=== PATIENT | male | born 1955 | race Caucasian/White ===

== ENCOUNTER 2017-10-01 11:00 | Outpatient (RCR) | payer MEDICARE, OTHER, SELFPAY | END 2017-10-01 11:01 | disposition home or self-care (01) | LOC: PT 11:00 | PROVIDERS: Family Provider Family Medicine; PCP Pediatrics; Visit Provider Physical Medicine & Rehabilitation | DX: M47.9 Spondylosis, unspecified (principal) | CPT/HCPCS: 97010; 97012; 97014; 97110; 97163; G0283 ==

== ENCOUNTER 2022-11-27 08:24 | Day surgery (SDC) | payer MEDICARE, MEDICAID, SELFPAY ==
--- NOTE | 2022-11-26 10:20 | SUR.PREOP ---
Attempted to call patient for procedure tomorrow, no answer from either number provided. No voicemail available on either number as well.
[2022-11-27] VITALS (9 sets, daily range): BP systolic 147–160; BP diastolic 87–102; PULSE 3–82; RESP 16–19; TEMP 36.2–36.6; O2SAT 92–100; BMI 28.0
== END 2022-11-27 11:45 | disposition home or self-care (01) ==
PROVIDERS: PCP Pediatrics; Visit Provider Ophthalmology
DX: H25.812 Combined forms of age-related cataract, left eye (principal)
CPT/HCPCS: 66984; V2632

== ENCOUNTER 2022-12-11 08:43 | Day surgery (SDC) | payer MEDICARE, MEDICAID, SELFPAY ==
[2022-12-07 10:36] VITALS: BMI 28.0
[2022-12-11] VITALS (7 sets, daily range): BP systolic 130–141; BP diastolic 71–85; PULSE 70–78; RESP 17–18; TEMP 36.2–36.3; O2SAT 92–100
== END 2022-12-11 10:30 | disposition home or self-care (01) ==
PROVIDERS: PCP Pediatrics; Visit Provider Ophthalmology
PROC: (CPT 66984; principal; 2022-12-11 09:30)
DX: H25.811 Combined forms of age-related cataract, right eye (principal)
CPT/HCPCS: 66984; V2632

== ENCOUNTER 2024-03-17 14:07 | Inpatient (IN) | payer MEDICARE, MEDICAID, SELFPAY ==
[2024-03-17] VITALS (17 sets, daily range): BP systolic 109–134; BP diastolic 71–90; PULSE 82–112; RESP 14–20; TEMP 36.4–36.6; O2SAT 91–97; BMI 28.2
--- NOTE | 2024-03-17 14:22 | CT_ITS ---
FINAL REPORT TECHNIQUE: Thin section axial images are obtained through the abdomen and pelvis after intravenous contrast. Reconstruction images were obtained from the axial data. Exam was performed using dose reduction techniques. CLINICAL HISTORY: prev colon cancer, diffuse discomfort vomiting COMPARISON: None FINDINGS: LUNG BASES: There are 2 left lower lobe pulmonary nodules. Nodule on image 9 measuring 10 mm and a nodule just above the left hemidiaphragm measuring 19 mm. These are concerning for metastases. Heart size is normal. LIVER: Homogeneous. No focal lesion. GALLBLADDER/BILIARY SYSTEM: The gallbladder is absent. No biliary dilatation. SPLEEN: Unremarkable. PANCREAS: Unremarkable. ADRENALS: Small left adrenal nodule measuring 10 mm is indeterminate. KIDNEYS/URETERS/BLADDER: No hydronephrosis, renal mass, or renal stone. Unremarkable urinary bladder. GI TRACT: Mild distention of the stomach with fluid. Mildly prominent fluid-filled small bowel loops in the left mid abdomen. Postsurgical changes in the right lower quadrant. Appendix is absent. Decompressed small bowel loops. The exact transition point is not identified. PELVIC ORGANS: Prostate is normal in size. LYMPH NODES/RETROPERITONEUM/MESENTERY: No lymphadenopathy. No abdominal aortic aneurysm. ABDOMINAL WALL: The abdominal wall is intact. FREE FLUID: No ascites. BONES: Avascular necrosis in the right femoral head. No acute osseous abnormality. IMPRESSION: Left lower lobe pulmonary nodules concerning for metastatic disease. Mildly dilated fluid-filled mid small bowel loops with distal decompression. Partial small-bowel obstruction not excluded. Transition point not identified. Reviewed, Interpreted and Dictated by Christal Gonzalez MD Transcribed by Rochelle He Authenticated and [facility]
--- NOTE | 2024-03-17 14:25 | HMH.EDGENADL ---
Discharge Plan Disposition Patient Disposition: Admitted Chief Complaint: Abdominal Pain Clinical Impressions Clinical Impression: SBO (small bowel obstruction), Hematuria, Bladder mass, Urinary tract infection, PONCE (acute kidney injury), Partial small bowel obstruction Discharge ED Provider: Adebayo Knox General Adult HPI <Greyson Polo MD - Last Filed: 03/17/24 15:15> General Chief complaint: Abdominal Pain Stated complaint: weak, vomiting Time Seen by Provider: 03/17/24 14:09 Mode of Arrival: Ambulatory Source of Information: Patient and Spouse Limitations: No Limitations Description of Symptoms (Recalled from ER Triage Doc. by RN): pt reports he is on day 3 of being sick. pt c/o N/V/D, RLQ/LLQ abd cramping, and blood in his urine. pt states his pain is a 7/10. pt took 1 gm of PO tylenol 2h [employer]. History of Present Illness HPI narrative: Patient is a 69-year-old male with past medical history of COPD on intermittent home O2 only as needed, previous colon cancer status post resection, intermittent hematuria which has not been evaluated who presents emergency department for evaluation of vomiting and diarrhea. Onset was acute since Saturday patient has had nausea, vomiting, diarrhea which is nonbloody and intractable. He has had diffuse abdominal cramping intermittently however no overt pain currently. He also has red discolored urine without significant dysuria, no back pain, no chest pain, no cough or shortness of breath. No other acute complaints at this time Related Data Home Medications ?Medication ?Instructions ?Recorded ?Confirmed albuterol 90 mcg/actuation aerosol 90 mcg inhalation DAILY asthmas 11/27/22 12/07/22 inhaler atorvastatin 40 mg tablet 40 mg PO DAILY Cholesterol 11/27/22 12/07/22 cholecalciferol (vitamin D3) 125 125 mcg PO DAILY Supplement 11/27/22 12/07/22 mcg (5,000 unit) tablet (Vitamin D3) citalopram 20 mg tablet 20 mg PO DAILY . 11/27/22 12/07/22 cyclobenzaprine 10 mg tablet 10 mg PO TID Pain 11/27/22 12/07/22 fluticasone fur. 100 mcg-umeclid 1 inh inhalation DAILY Copd 11/27/22 12/07/22 62.5 mcg-vilant 25 mcg inhalat.powder (Trelegy Ellipta) omeprazole 20 mg capsule,delayed 20 mg PO DAILY gerd 11/27/22 12/07/22 release propranolol 10 mg tablet 10 mg PO BID bp 11/27/22 12/07/22 rivaroxaban 20 mg tablet 20 mg PO DAILY bl;ood thinner 11/27/22 12/07/22 ropinirole 0.5 mg tablet 0.5 mg PO TID . 11/27/22 12/07/22 sildenafil 100 mg tablet 100 mg PO DAILY PRN . 11/27/22 12/07/22 Allergies Allergy/AdvReac Type Severity Reaction Status Date / Time morphine (MORPHINE) Allergy Unknown Unknown Verified 03/17/24 14:22 allergy reaction [facility] <Greyson Polo MD - Last Filed: 03/17/24 15:15> [facility] Disclaimer: The information contained in this section may have been updated after the patient was seen, as this information can be updated by other users. Medical History (Updated 03/17/24 @ 21:19 by Adebayo Knox MD) Cataract COPD (chronic obstructive pulmonary disease) GERD (gastroesophageal reflux disease) Peripheral vascular disease Surgical History History of foot surgery History of knee replacement Hx of cholecystectomy Hx of appendectomy History of colon resection Family History Other Family history of heart disease Social History Smoking Status: Current every day smoker alcohol intake: never current occupational status: unemployed Travel in the last 8 weeks: None Have you lived/traveled outside US in past 30 days?: No Contact w/someone who lives/traveled outside US past 30 days?: No Exposure to someone with infectious disease in past 14 days?: No Do you have a fever (greater than 100.4 F or 38 C)?: No Have you tested positive for COVID-19: No Exposed to someone with COVID-19 in past 14 days?: No Do you have a sore throat?: No Do you have a cough?: Yes Do you have any weakness?: Yes Do you have any diarrhea?: Yes Are you experiencing any unusual bleeding?: No Do you have any muscle aches/pain?: No Do you have any abdominal pain?: No Are you experiencing loss of taste or smell?: No <Greyson Polo MD - Last Filed: 03/17/24 15:15> ROS Obtained: Yes Systems reviewed as appropriate & no additional complaints except as documented Physical Exam <Greyson Polo MD - Last Filed: 03/17/24 15:15> General General appearance: alert Comment: Diaphoretic Head Head exam: atraumatic and normocephalic Eye Eye exam: Present PERRL and EOMI ENT ENT exam: Present mucous membranes moist Neck Neck exam: Present normal inspection Chest Chest inspection: Present normal inspection and symmetric chest wall rise Respiratory Respiratory exam: Present normal lung sounds bilaterally; Absent respiratory distress Cardiovascular Cardiovascular exam: Present normal rhythm and tachycardia Abdominal Exam Abdominal exam: Present distention (Mild); Absent tenderness, guarding or rebound Extremities Exam Extremities exam: Present normal inspection Neurological Exam Neurological exam: Present alert Psychiatric Psychiatric exam: Present normal affect Skin Skin exam: Present warm and dry Medical Decision Making <Greyson Polo MD - Last Filed: 03/17/24 15:15> Medical Records Screening: Per USPSTF and CDC recommendations, given the prevalence of disease in our region, it is our hospital?s policy to screen for HIV and viral Hepatitis for all patients aged 18 and over and those with ongoing risk factors. Natan Inquiry Pt receiving controlled substance: No Vital Signs: 03/17/24 14:15 03/17/24 14:30 03/17/24 15:00 Temperature 98 F Temperature Source Oral Pulse Rate 100 H 89 Pulse Rate [Left] 112 H Respiratory Rate 18 Blood Pressure 120/83 109/78 L Blood Pressure [Right Arm] 131/90 Blood Pressure Mean [Right Arm] 103 Blood Pressure Source [Right Arm] Automatic Cuff Blood Pressure Position [Right Arm] Sitting 02 Sat by Pulse Oximetry 95 91 L 93 L Oxygen Delivery Method Room Air Room Air Nasal Cannula Oxygen Flow Rate (LPM) 2 03/17/24 15:30 03/17/24 16:00 03/17/24 16:30 Temperature Temperature Source Pulse Rate 88 82 85 Pulse Rate [Left] Respiratory Rate 16 14 14 Blood Pressure 127/78 126/82 134/79 Blood Pressure [Right Arm] Blood Pressure Mean [Right Arm] Blood Pressure Source [Right Arm] Blood Pressure Position [Right Arm] 02 Sat by Pulse Oximetry 97 91 L 95 Oxygen Delivery Method Room Air Room Air Room Air Oxygen Flow Rate (LPM) 03/17/24 17:00 03/17/24 17:31 03/17/24 18:00 Temperature Temperature Source Pulse Rate 94 H 93 H 93 H Pulse Rate [Left] Respiratory Rate 18 20 17 Blood Pressure 122/71 129/85 121/83 Blood Pressure [Right Arm] Blood Pressure Mean [Right Arm] Blood Pressure Source [Right Arm] Blood Pressure Position [Right Arm] 02 Sat by Pulse Oximetry 94 L 94 L 93 L Oxygen Delivery Method Room Air Room Air Nasal Cannula Oxygen Flow Rate (LPM) 03/17/24 18:31 03/17/24 19:00 03/17/24 19:30 Temperature Temperature Source Pulse Rate 93 H Pulse Rate [Left] Respiratory Rate 17 16 14 Blood Pressure 111/85 131/88 123/90 Blood Pressure [Right Arm] Blood Pressure Mean [Right Arm] Blood Pressure Source [Right Arm] Blood Pressure Position [Right Arm] 02 Sat by Pulse Oximetry 95 Oxygen Delivery Method Nasal Cannula Oxygen Flow Rate (LPM) 03/17/24 20:00 03/17/24 20:31 Temperature Temperature Source Pulse Rate Pulse Rate [Left] Respiratory Rate 17 20 Blood Pressure 111/84 130/83 Blood Pressure [Right Arm] Blood Pressure Mean [Right Arm] Blood Pressure Source [Right Arm] Blood Pressure Position [Right Arm] 02 Sat by Pulse Oximetry Oxygen Delivery Method Oxygen Flow Rate (LPM) Lab Data Lab Results 03/17/24 14:20: WBC 9.1, RBC 4.84, Hgb 14.6, Hct 44.3, MCV 91.5, MCH 30.2, MCHC 33.0, RDW 13.0, Plt Count 371, MPV 9.2, Neut % (Auto) 51.4, Lymph % (Auto) 36.8, [place] % (Auto) 8.4, Eos % (Auto) 2.5, Baso % (Auto) 0.6, Neut # (Auto) 4.7, Lymph # (Auto) 3.3, [place] # (Auto) 0.8, Eos # (Auto) 0.2, Baso # (Auto) 0.1, Sodium 138, Potassium 4.7, Chloride 94 L, Carbon Dioxide 33 H, Anion Gap 15.7 H, BUN 43 H, Creatinine 2.00 H, Estimated Creat Clear 47, Estimated GFR 33 L, Est GFR ( Amer) 40 L, Glucose 126 H, Calcium 10.8 H, Total Bilirubin 0.6, AST 47, ALT 28, Alkaline Phosphatase 93, Total Creatine Kinase 87, Troponin I 0.02, Total Protein 9.1 H, Albumin 4.8, Globulin 4.3 H, Albumin/Globulin Ratio 1.1, Lipase 89, SARS-CoV-2 (PCR) Not detected, HIV Ag/Ab Combo Qual Negative, Influenza A Untype (PCR) Not detected, Influenza Type B (PCR) Not detected 03/17/24 15:06: Urine Color Red, Urine Appearance Turbid, Urine pH 5.0, Ur Specific [place] >= 1.030, Urine Protein 3+ A, Urine Glucose (UA) Negative, Urine Ketones 1+, Urine Blood 3+ A, Urine Nitrate Positive A, Urine Bilirubin 1+ A, Urine Urobilinogen 1.0, Ur Leukocyte Esterase 1+ A, Urine RBC Tntc, Urine WBC 10-20, Ur Squamous Epith Cells 3-5, Urine Bacteria 1+ 03/17/24 20:22: Troponin I 0.01 03/17/24 14:20 03/17/24 14:20 Orders (Tests/Meds): ED MEDICATIONS Discontinued Medications Generic Name Dose Route Start Last Admin Trade Name Caliq PRN Reason Stop Dose Admin Lactated Ringer's 1,000 mls @ 999 mls/hr 03/17/24 14:19 03/17/24 14:26 Lactated Ringer's 1000 Ml Bag IV 03/17/24 15:19 999 mls/hr .Q1H1M ONE Administration Ceftriaxone Sodium 1 gm/ 50 mls @ 100 mls/hr 03/17/24 15:45 03/17/24 15:42 Sodium Chloride IV 03/27/24 15:44 100 mls/hr Q24H ERIC Administration Ceftriaxone Sodium 1 gm/ 50 mls @ 100 mls/hr 03/17/24 16:13 03/17/24 16:47 Sodium Chloride IV 03/17/24 16:14 Not Given ONCE ONE Iopamidol 75 ml 03/17/24 15:12 03/17/24 15:17 Iopamidol-370 (76%);100ml Bottle IV 03/17/24 15:13 75 ml ONCE ONE Administration Ondansetron HCl 4 mg 03/17/24 14:19 03/17/24 14:26 Ondansetron 4mg/2ml Vial IV 03/17/24 14:20 4 mg ONCE ONE Administration Sodium Chloride 10 ml 03/17/24 15:12 03/17/24 15:17 Sodium Chloride 0.9% 10ml Syr (Rad Only) IV 03/17/24 15:13 10 ml ONCE ONE Administration ORDERS Category Date Time Status CT abdomen pelvis w con Stat Cat Scan 03/17/24 14:22 Completed Chest XR -- portable [XR chest portable] Stat Exams 03/17/24 18:27 Completed POCUS Point of Care (ER Only) Stat Exams 03/17/24 19:01 Ordered CBC w/Auto Diff [Complete Blood Count Auto Diff] Stat Lab 03/17/24 14:20 Completed CK [Creatine Kinase] Stat Lab 03/17/24 14:20 Completed CMP [Comprehensive Metabolic Panel] Stat Lab 03/17/24 14:20 Completed HIV Combo Stat Lab 03/17/24 14:20 Completed Hep C Ab with Reflex to RNA Stat Lab 03/17/24 14:20 Received Lipase Stat Lab 03/17/24 14:20 Completed Rapid PCR Covid and Flu A/B Stat Lab 03/17/24 14:20 Completed Trop I [Troponin I] Stat Lab 03/17/24 14:20 Completed Troponin I Q3H Lab 03/17/24 20:22 Completed UA [Urinalysis and Microscopic] Stat Lab 03/17/24 15:06 Completed Urine Culture Stat Micro 03/17/24 15:06 Received ECG Data Tracing #1: Independently interpreted by me rate is 102, rhythm is regular, axis is normal, no ST elevation in anatomical contiguous leads, QTc 393 Medical Decision Narrative: In summary patient is 69-year-old male past medical history described above who presents emergency department for evaluation of abdominal cramping, vomiting, diarrhea in the setting of previous malignancy and multiple abdominal surgeries with associated hematuria. Patient is hemodynamically stable nontoxic-appearing upon arrival, afebrile, slightly diaphoretic. Differential diagnosis includes viral syndrome, pancreatitis, urinary tract infection, malignancy, among others. He does not have classic flank pain associated with his hematuria that would be associated with renal colic. It may be that he has myoglobinuria and CK will be ordered. Initial inventions include crystalloid bolus, Zofran. Initial workup reviewed by me, no significant leukocytosis, creatinine 2.0 with an unknown baseline being volume resuscitated initial troponin 0.02, viral swab negative. Urinalysis pending. CT ordered and pending at time of transition of care to the oncoming physician, Dr. Knox. <Adebayo Knox MD - Last Filed: 03/17/24 21:19> Vital Signs: 03/17/24 14:15 03/17/24 14:30 03/17/24 15:00 Temperature 98 F Temperature Source Oral Pulse Rate 100 H 89 Pulse Rate [Left] 112 H Respiratory Rate 18 Blood Pressure 120/83 109/78 L Blood Pressure [Right Arm] 131/90 Blood Pressure Mean [Right Arm] 103 Blood Pressure Source [Right Arm] Automatic Cuff Blood Pressure Position [Right Arm] Sitting 02 Sat by Pulse Oximetry 95 91 L 93 L Oxygen Delivery Method Room Air Room Air Nasal Cannula Oxygen Flow Rate (LPM) 2 03/17/24 15:30 03/17/24 16:00 03/17/24 16:30 Temperature Temperature Source Pulse Rate 88 82 85 Pulse Rate [Left] Respiratory Rate 16 14 14 Blood Pressure 127/78 126/82 134/79 Blood Pressure [Right Arm] Blood Pressure Mean [Right Arm] Blood Pressure Source [Right Arm] Blood Pressure Position [Right Arm] 02 Sat by Pulse Oximetry 97 91 L 95 Oxygen Delivery Method Room Air Room Air Room Air Oxygen Flow Rate (LPM) 03/17/24 17:00 03/17/24 17:31 03/17/24 18:00 Temperature Temperature Source Pulse Rate 94 H 93 H 93 H Pulse Rate [Left] Respiratory Rate 18 20 17 Blood Pressure 122/71 129/85 121/83 Blood Pressure [Right Arm] Blood Pressure Mean [Right Arm] Blood Pressure Source [Right Arm] Blood Pressure Position [Right Arm] 02 Sat by Pulse Oximetry 94 L 94 L 93 L Oxygen Delivery Method Room Air Room Air Nasal Cannula Oxygen Flow Rate (LPM) 03/17/24 18:31 03/17/24 19:00 03/17/24 19:30 Temperature Temperature Source Pulse Rate 93 H Pulse Rate [Left] Respiratory Rate 17 16 14 Blood Pressure 111/85 131/88 123/90 Blood Pressure [Right Arm] Blood Pressure Mean [Right Arm] Blood Pressure Source [Right Arm] Blood Pressure Position [Right Arm] 02 Sat by Pulse Oximetry 95 Oxygen Delivery Method Nasal Cannula Oxygen Flow Rate (LPM) 03/17/24 20:00 03/17/24 20:31 Temperature Temperature Source Pulse Rate Pulse Rate [Left] Respiratory Rate 17 20 Blood Pressure 111/84 130/83 Blood Pressure [Right Arm] Blood Pressure Mean [Right Arm] Blood Pressure Source [Right Arm] Blood Pressure Position [Right Arm] 02 Sat by Pulse Oximetry Oxygen Delivery Method Oxygen Flow Rate (LPM) Lab Data Lab Results 03/17/24 14:20: WBC 9.1, RBC 4.84, Hgb 14.6, Hct 44.3, MCV 91.5, MCH 30.2, MCHC 33.0, RDW 13.0, Plt Count 371, MPV 9.2, Neut % (Auto) 51.4, Lymph % (Auto) 36.8, [place] % (Auto) 8.4, Eos % (Auto) 2.5, Baso % (Auto) 0.6, Neut # (Auto) 4.7, Lymph # (Auto) 3.3, [place] # (Auto) 0.8, Eos # (Auto) 0.2, Baso # (Auto) 0.1, Sodium 138, Potassium 4.7, Chloride 94 L, Carbon Dioxide 33 H, Anion Gap 15.7 H, BUN 43 H, Creatinine 2.00 H, Estimated Creat Clear 47, Estimated GFR 33 L, Est GFR ( Amer) 40 L, Glucose 126 H, Calcium 10.8 H, Total Bilirubin 0.6, AST 47, ALT 28, Alkaline Phosphatase 93, Total Creatine Kinase 87, Troponin I 0.02, Total Protein 9.1 H, Albumin 4.8, Globulin 4.3 H, Albumin/Globulin Ratio 1.1, Lipase 89, SARS-CoV-2 (PCR) Not detected, HIV Ag/Ab Combo Qual Negative, Influenza A Untype (PCR) Not detected, Influenza Type B (PCR) Not detected 03/17/24 15:06: Urine Color Red, Urine Appearance Turbid, Urine pH 5.0, Ur Specific [place] >= 1.030, Urine Protein 3+ A, Urine Glucose (UA) Negative, Urine Ketones 1+, Urine Blood 3+ A, Urine Nitrate Positive A, Urine Bilirubin 1+ A, Urine Urobilinogen 1.0, Ur Leukocyte Esterase 1+ A, Urine RBC Tntc, Urine WBC 10-20, Ur Squamous Epith Cells 3-5, Urine Bacteria 1+ 03/17/24 20:22: Troponin I 0.01 Orders (Tests/Meds): ED MEDICATIONS Discontinued Medications Generic Name Dose Route Start Last Admin Trade Name Freq PRN Reason Stop Dose Admin Lactated Ringer's 1,000 mls @ 999 mls/hr 03/17/24 14:19 03/17/24 14:26 Lactated Ringer's 1000 Ml Bag IV 03/17/24 15:19 999 mls/hr .Q1H1M ONE Administration Ceftriaxone Sodium 1 gm/ 50 mls @ 100 mls/hr 03/17/24 15:45 03/17/24 15:42 Sodium Chloride IV 03/27/24 15:44 100 mls/hr Q24H ERIC Administration Ceftriaxone Sodium 1 gm/ 50 mls @ 100 mls/hr 03/17/24 16:13 03/17/24 16:47 Sodium Chloride IV 03/17/24 16:14 Not Given ONCE ONE Iopamidol 75 ml 03/17/24 15:12 03/17/24 15:17 Iopamidol-370 (76%);100ml Bottle IV 03/17/24 15:13 75 ml ONCE ONE Administration Ondansetron HCl 4 mg 03/17/24 14:19 03/17/24 14:26 Ondansetron 4mg/2ml Vial IV 03/17/24 14:20 4 mg ONCE ONE Administration Sodium Chloride 10 ml 03/17/24 15:12 03/17/24 15:17 Sodium Chloride 0.9% 10ml Syr (Rad Only) IV 03/17/24 15:13 10 ml ONCE ONE Administration ORDERS Category Date Time Status CT abdomen pelvis w con Stat Cat Scan 03/17/24 14:22 Completed Chest XR -- portable [XR chest portable] Stat Exams 03/17/24 18:27 Completed POCUS Point of Care (ER Only) Stat Exams 03/17/24 19:01 Ordered CBC w/Auto Diff [Complete Blood Count Auto Diff] Stat Lab 03/17/24 14:20 Completed CK [Creatine Kinase] Stat Lab 03/17/24 14:20 Completed CMP [Comprehensive Metabolic Panel] Stat Lab 03/17/24 14:20 Completed HIV Combo Stat Lab 03/17/24 14:20 Completed Hep C Ab with Reflex to RNA Stat Lab 03/17/24 14:20 Received Lipase Stat Lab 03/17/24 14:20 Completed Rapid PCR Covid and Flu A/B Stat Lab 03/17/24 14:20 Completed Trop I [Troponin I] Stat Lab 03/17/24 14:20 Completed Troponin I Q3H Lab 03/17/24 20:22 Completed UA [Urinalysis and Microscopic] Stat Lab 03/17/24 15:06 Completed Urine Culture Stat Micro 03/17/24 15:06 Received Medical Decision Narrative: In summary patient is 69-year-old male past medical history described above who presents emergency department for evaluation of abdominal cramping, vomiting, diarrhea in the setting of previous malignancy and multiple abdominal surgeries with associated hematuria. Patient is hemodynamically stable nontoxic-appearing upon arrival, afebrile, slightly diaphoretic. Differential diagnosis includes viral syndrome, pancreatitis, urinary tract infection, malignancy, among others. He does not have classic flank pain associated with his hematuria that would be associated with renal colic. It may be that he has myoglobinuria and CK will be ordered. Initial inventions include crystalloid bolus, Zofran. Initial workup reviewed by me, no significant leukocytosis, creatinine 2.0 with an unknown baseline being volume resuscitated initial troponin 0.02, viral swab negative. Urinalysis pending. CT ordered and pending at time of transition of care to the oncoming physician, Dr. Knox. Abilio: I assumed primary responsibility for this patient after signout from previous physician. On my evaluation of patient, in no acute distress. Abdomen is soft, nontender on my exam, but he does appear distended. Patient states that he is only mildly more distended than he usually is. Certainly no peritoneal signs. Nontachycardic and normotensive. Independent interpretation of workup with nonactionable CBC and normal white count. Patient's chemistry with moderate PONCE creatinine 2.0 up from normal baseline and BUN 43. Patient's troponin is negative at 0.02 and lipase negative. Urinalysis with hematuria, nitrates, leukocyte Estrace white blood cells and significant urinary tract infection. He was given 1 g of Rocephin for this. Viral swab is negative. CT of the abdomen and pelvis was ordered and independently interpreted. Patient has lung nodule on the left, unknown if this is known to patient or not. Patient also has what appears to be partial versus early complete small bowel obstruction. Regarding bladder, patient does have asymmetric and abnormal thickening of the posterior wall of the bladder concerning for potential malignancy versus possible intravesicular hematoma. NG tube was placed. Feculent material returned. Shortly thereafter, patient states that he is feeling much better with NG tube in place. Bedside [id number] ultrasound was performed, patient has anterior bladder wall mass that has vascular activity on color Doppler concerning for urologic malignancy. Results were relayed to patient and significant other in the room. Patient wishing to go to [place] possible, if not, [place]. I talked to the hospitalist here and out of concern for previous colon cancer, new small bowel obstruction, bladder wall thickening and gross hematuria, opting for transfer for surgical and urologic evaluation. After calling every hospital in the state and being declined, [place] called again at patient's request. States that they have waitlisted patient, will probably be able to get him to the hospital either tonight or early in the morning. Patient admitted to hospitalist service in the interim. Procedures <Adebayo Knox MD - Last Filed: 03/17/24 21:19> Limited Ultrasound Indication:: Limited Bladder ultrasound Indication: Gross hematuria, thickening on CT Identified structures: Location: bladder Findings: Patient has anterior bladder wall mass with blood flow on color Doppler concerning for bladder malignancy Impression: Bladder wall mass anteriorly consistent with malignancy Images were saved to permanent archive The study was technically adequate PVR bladder Codes: [id number] This study was performed by me, and I personally interpreted all images/videos. Based on my clinical judgement, these images were adequate and did not necessitate further imaging Critical Care <Greyson Polo MD - Last Filed: 03/17/24 15:15> Critical Care Time Critical Care Time: No <Adebayo Knox MD - Last Filed: 03/17/24 21:19> Critical Care Time Critical Care Time: Yes (GI) Attestation: On 03/17/24, the high probability of a clinically significant, sudden or life threatening deterioration of the following system(s) required my full and direct attention, intervention and personal management. The time I documented below is in addition to time spent performing reported procedures but includes the following listed in this critical care notation. Total Time Total Critical Care Time: 35
[2024-03-17] MEDS: LACTATED RINGERS 1000ML 1,000 ML 999 ML IV (14:26)
[2024-03-17] MEDS: ONDANSETRON 4MG/2ML VIAL 4 MG IV (14:26)
[2024-03-17 14:28] LABS: Basophils # 0.1 K/mm3 (0-0.2); Basophils % 0.6 % (0.1-2.0); Eosinophils # 0.2 K/mm3 (0.0-0.4); Eosinophils % 2.5 % (0.1-12.0); Hematocrit 44.3 % (42.0-52.0); Hemoglobin 14.6 g/dL (14.1-18.0); Lymphocytes # 3.3 K/mm3 (0.7-4.5); Lymphocytes % 36.8 % (10-50); Mean Corpuscular Hemoglobin 30.2 pg (27.0-31.2); Mean Corpuscular Volume 91.5 fl (80-94); Mean Platelet Volume 9.2 fl (7.4-10.4); Monocytes # 0.8 K/mm3 (0.1-1.0); Monocytes % 8.4 % (1.7-9.3); Neutrophils # 4.7 K/mm3 (1.8-7.8); Neutrophils % 51.4 % (37.0-80.0); Platelet Count 371 K/mm3 (142-424); Red Blood Count 4.84 M/mm3 (4.60-6.20); White Blood Count 9.1 K/mm3 (4.8-10.8)
[2024-03-17 14:29] LABS: Coronavirus 19, PCR Not Detected (NotDetected); Influenza A, PCR Not Detected (NotDetected); Influenza B, PCR Not Detected (NotDetected)
--- NOTE | 2024-03-17 14:29 | ECG_ITS ---
APPROVED REPORT Exam: Resting ECG HR:102 bpm ECG Measurements Heart Rate 102 AXES ID 178 P 76 QRSd 91 QRS 50 QT 335 T 75 QTc 393 Conclusion SINUS TACHYCARDIA NONSPECIFIC T-WAVE ABNORMALITY No STEMI Electronically signed by : KECIA VILLEGAS, 03/18/2024 06:08:10
[2024-03-17 14:46] LABS: Albumin Level 4.8 g/dl (3.5-5.0); Chloride 94 mmol/L (98-107); Potassium 4.7 mmoL/L (3.5-5.1); Sodium 138 mmol/L (136-145)
[2024-03-17 14:48] LABS: Alanine Aminotransferase 28 U/L (12-78); Alkaline Phosphatase 93 U/L (38-126); Anion Gap 15.7 mEq/L (5-15); Aspartate Amino Transferase 47 U/L (17-59); Bilirubin,Total 0.6 mg/dl (0.2-1.3); Blood Urea Nitrogen 43 mg/dl (9-20); Carbon Dioxide 33 mmol/L (22.0-30.0); Creatinine Clearance Estimated 47 mL/min (50-200); Estimated Glomerular Filt Rate 33 ml/min (>60); GFR (African American) 40 ML/MIN (>60)
[2024-03-17 14:49] LABS: Albumin/Globulin Ratio 1.1 (1.1-1.8); Calcium 10.8 mg/dl (8.4-10.2); Globulin 4.3 g/dL (1.3-3.2); Glucose 126 mg/dl (74-100); Lipase 89 U/L (23-300); Total Protein,Serum 9.1 g/dl (6.3-8.2)
[2024-03-17 15:00] LABS: Troponin I 0.02 ng/ml (0.00-0.034)
[2024-03-17 15:09] LABS: Microscopic, Urine URINE MICROSCOPIC (MICROSCOPIC)
[2024-03-17 15:14] LABS: Appearance,Urine TURBID (Clear); Blood, Urine 3+ (Negative); Color,Urine RED (Yellow); Glucose,Urine (UA) Negative (Negative); Ketones,Urine 1+ (Negative); Leukocyte Esterase,Urine 1+ (Negative); Nitrate,Urine POSITIVE (Negative); Protein,Urine 3+ (Negative); Specific Gravity, Urine >= 1.030 (1.005-1.030)
[2024-03-17 15:17] LABS: Bilirubin,Urine 1+ (Negative)
[2024-03-17] MEDS: SODIUM CHLORIDE 0.9% 10ML SYR (RAD ONLY) 10 ML IV (15:17)
[2024-03-17] MEDS: IOPAMIDOL-370 (76%);100ML BOTTLE 75 ML IV (15:17)
[2024-03-17 15:21] LABS: Bacteria,Urine 1+ /lpf; RBC,Urine TNTC #/hpf (0-3)
[2024-03-17 15:22] LABS: Creatine Kinase 87 U/L (55-170)
--- NOTE | 2024-03-17 15:39 | PC.NURSE ---
Dr. Polo states that we do not need to draw blood cultures.
[2024-03-17] MEDS: CEFTRIAXONE 1 GM 1 GM in 0.9 % SODIUM CHLORIDE 50 ML IV (15:42)
[2024-03-17 16:05] LABS: HIV Combo NEGATIVE (Negative)
--- NOTE | 2024-03-17 17:48 | PC.NURSE ---
Called [facility] per Dr. Knox for Bowel obstruction, History of colon cancer, Bladder abnormal on CT. [facility] put us on the wait list and said they would give us a call back when a room becomes available.
--- NOTE | 2024-03-17 18:11 | PC.NURSE ---
Called [facility] per for poss transfer for Bowel Obstruction, History of colon cancer, and Bladder abnormal on CT. [facility] stated that they would give us a call back.
--- NOTE | 2024-03-17 18:20 | PC.NURSE ---
martha at attempting to place ng tube
--- NOTE | 2024-03-17 18:27 | XR_ITS ---
PROCEDURE INFORMATION: Exam: XR Chest Exam date and time: 03/17/2024 6:23 PM Age: 69 years old Clinical indication: Device placement; Ng tube; Additional info: Ng placement confirmation TECHNIQUE: Imaging protocol: Radiologic exam of the chest. Views: 1 view. COMPARISON: CT ABDOMEN PELVIS W CON 03/17/2024 3:11 PM FINDINGS: Tubes, catheters and devices: NG tube is seen within the stomach. Lungs: Bibasilar atelectasis. No acute airspace consolidation. Pleural spaces: Unremarkable. No pleural effusion. No pneumothorax. Heart/Mediastinum: Unremarkable. No cardiomegaly. Bones/joints: Unremarkable. IMPRESSION: NG tube within the stomach.
[2024-03-17 20:54] LABS: Troponin I 0.01 ng/ml (0.00-0.034)
--- NOTE | 2024-03-17 21:00 | PC.NURSE ---
Called [facility] to follow up on bed assignment and they do not have a bed yet. we are keeping him on waitlist at this time and will admit to our medsurg unit until a bed becomes available.
--- NOTE | 2024-03-17 21:39 | PC.NURSE ---
Patient arrived to floor via wheelchair from ED at 21:38.
[2024-03-17] MEDS: 0.9 % SODIUM CHLORIDE 1000ML 1,000 ML 100 ML IV (22:09)
[2024-03-17] MEDS: FAMOTIDINE 20MG/2ML VIAL 20 MG IV (22:09)
--- NOTE | 2024-03-17 22:13 | P.HP_ITS ---
<Statement entered by Prasad Kaplan MD - 03/24/24 22:27> I personally evaluated the patient and agree with the plan as outlined by the [employer]OR[employer] TECHNICIAN. History of Present Illness *Admission Date: 03/17/24 *Reason for visit:: Nausea vomiting dehydration *History of present illness: This patient that was assessed in our ER. Was found to have a bladder mass. Patient was going to be transferred. But has been placed on waiting list due to the holiday there is no empty beds to send the patient to right now. Reason for need for transfer is services above the capability of our hospital for evaluation of bladder mass question urology questions surgery. Patient came to the emergency room because he had had irretractable vomiting/diarrhea since Saturday. On examining patient he had NG tube down and was no longer throwing up. Patient was noted his to having red discolored urine that was hematuria plus positive leukocyte. Denied any chest pain cough shortness of breath. Labs showed that elevated BUN elevated creatinine probably related to dehydration. CT scan showed probable mets to the lungs. The ER physician did an ultrasound which showed a very clear evident mass in the bladder. [facility] Disclaimer: The information contained in this section may have been updated after the patient was seen, as this information can be updated by other users. Medical History (Updated 03/17/24 @ 22:39 by Jak Moreira APRN) Colon cancer Cataract COPD (chronic obstructive pulmonary disease) GERD (gastroesophageal reflux disease) Peripheral vascular disease Surgical History (Updated 03/17/24 @ 22:18 by Jak Moreira APRN) H/O cataract removal with insertion of prosthetic lens History of foot surgery History of knee replacement Hx of cholecystectomy Hx of appendectomy History of colon resection Family History Other Family history of heart disease Social History (Updated 03/17/24 @ 22:19 by Jak Moreira APRN) Smoking Status: Current some day smoker years smoked: 50 how long ago did patient quit smoking: February 2024 quit status: considering quitting alcohol intake: never current occupational status: unemployed Travel in the last 8 weeks: None Have you lived/traveled outside [place] in past 30 days?: No Contact w/someone who lives/traveled outside US past 30 days?: No Exposure to someone with infectious disease in past 14 days?: No Do you have a fever (greater than 100.4 F or 38 C)?: No Have you tested positive for COVID-19: No Exposed to someone with COVID-19 in past 14 days?: No Do you have a sore throat?: No Do you have a cough?: Yes Do you have any weakness?: Yes Do you have any diarrhea?: Yes Are you experiencing any unusual bleeding?: No Do you have any muscle aches/pain?: No Do you have any abdominal pain?: No Are you experiencing loss of taste or smell?: No Other Medical History Have you received the Flu Vaccine for this season: Yes Have you received the Pneumonia Vaccine: Yes Review of Systems Review of Systems Review of systems:: pertinent systems reviewed and negative unless documented below Constitutional Constitutional: Reports as per HPI, Reports poor appetite and Reports weight loss Eyes Eyes: Reports as per HPI Comments: History of cataract surgery OD. States vision has been unchanged ENT Ears, Nose, Mouth, and Throat: Reports as per HPI *Cardiovascular Cardiovascular: Reports as per HPI and Reports dyspnea on exertion *Respiratory Respiratory: Reports as per HPI, Reports cough and Reports dyspnea on exertion Comments: Patient states since he has quit smoking his cough has improved *Gastrointestinal Gastrointestinal: Reports as per HPI, Reports abdominal pain, Reports change in bowel habits, Reports change in stool character, Reports nausea and Reports vomiting *Genitourinary Genitourinary: Reports as per HPI and Reports hematuria *Musculoskeletal Musculoskeletal: Reports as per HPI Integumentary/Breasts Skin/Breast: Reports as per HPI *Neurologic Neurologic: Reports as per HPI Psychiatric Psychiatric: Reports as per HPI Endocrine Endocrine: Reports as per HPI Hematologic/Lymphatic Hematologic/Lymphatic: Reports as per HPI Allergic/Immunologic Allergic/Immunologic: Reports as per HPI Meds Home Medications and Allergies Home Medications ?Medication ?Instructions ?Recorded ?Confirmed ?Type albuterol 90 mcg/actuation aerosol 90 mcg inhalation DAILY asthmas 11/27/22 12/07/22 History inhaler atorvastatin 40 mg tablet 40 mg PO DAILY Cholesterol 11/27/22 12/07/22 History cholecalciferol (vitamin D3) 125 125 mcg PO DAILY Supplement 11/27/22 12/07/22 History mcg (5,000 unit) tablet (Vitamin D3) citalopram 20 mg tablet 20 mg PO DAILY . 11/27/22 12/07/22 History cyclobenzaprine 10 mg tablet 10 mg PO TID Pain 11/27/22 12/07/22 History fluticasone fur. 100 mcg-umeclid 1 inh inhalation DAILY Copd 11/27/22 12/07/22 History 62.5 mcg-vilant 25 mcg inhalat.powder (Trelegy Ellipta) omeprazole 20 mg capsule,delayed 20 mg PO DAILY gerd 11/27/22 12/07/22 History release propranolol 10 mg tablet 10 mg PO BID bp 11/27/22 12/07/22 History rivaroxaban 20 mg tablet 20 mg PO DAILY bl;ood thinner 11/27/22 12/07/22 History ropinirole 0.5 mg tablet 0.5 mg PO TID . 11/27/22 12/07/22 History sildenafil 100 mg tablet 100 mg PO DAILY PRN . 11/27/22 12/07/22 History New Prescriptions to Start Prescriptions: Allergies Allergy/AdvReac Type Severity Reaction Status Date / Time morphine (MORPHINE) Allergy Unknown Unknown Verified 03/17/24 14:22 allergy reaction Exam Data for Last 24 hours Vital signs and Labs for Last 24 Hours: Temp Pulse Resp BP Pulse Ox O2 Del Method O2 Flow Rate 97.9 F 94 H 18 132/85 94 L Nasal Cannula 2 03/17/24 21:13 03/17/24 21:13 03/17/24 21:13 03/17/24 21:13 03/17/24 21:00 03/17/24 21:13 03/17/24 21:13 Laboratory Results - last 24 hr 03/17/24 14:20: WBC 9.1, RBC 4.84, Hgb 14.6, Hct 44.3, MCV 91.5, MCH 30.2, MCHC 33.0, RDW 13.0, Plt Count 371, MPV 9.2, Neut % (Auto) 51.4, Lymph % (Auto) 36.8, [place] % (Auto) 8.4, Eos % (Auto) 2.5, Baso % (Auto) 0.6, Neut # (Auto) 4.7, Lymph # (Auto) 3.3, [place] # (Auto) 0.8, Eos # (Auto) 0.2, Baso # (Auto) 0.1, Sodium 138, Potassium 4.7, Chloride 94 L, Carbon Dioxide 33 H, Anion Gap 15.7 H, BUN 43 H, Creatinine 2.00 H, Estimated Creat Clear 47, Estimated GFR 33 L, Est GFR ( Amer) 40 L, Glucose 126 H, Calcium 10.8 H, Total Bilirubin 0.6, AST 47, ALT 28, Alkaline Phosphatase 93, Total Creatine Kinase 87, Troponin I 0.02, Total Protein 9.1 H, Albumin 4.8, Globulin 4.3 H, Albumin/Globulin Ratio 1.1, Lipase 89, SARS-CoV-2 (PCR) Not detected, HIV Ag/Ab Combo Qual Negative, Influenza A Untype (PCR) Not detected, Influenza Type B (PCR) Not detected 03/17/24 15:06: Urine Color Red, Urine Appearance Turbid, Urine pH 5.0, Ur Specific [place] >= 1.030, Urine Protein 3+ A, Urine Glucose (UA) Negative, Urine Ketones 1+, Urine Blood 3+ A, Urine Nitrate Positive A, Urine Bilirubin 1+ A, Urine Urobilinogen 1.0, Ur Leukocyte Esterase 1+ A, Urine RBC Tntc, Urine WBC 10-20, Ur Squamous Epith Cells 3-5, Urine Bacteria 1+ 03/17/24 20:22: Troponin I 0.01 I & O for Last 24 hours: Intake & Output 03/15/24 03/16/24 03/17/24 03/18/24 05:59 05:59 05:59 05:59 Weight 208 lb Radiology Reports for the Last 24 Hours: CT scan of the abdomen could not definitely find a area of blockage., Did not cone picker or state the bladder mass that is found on ultrasound., But did cover enough the lower lungs to estimate there may be metastatic cancer in the lungs., Chest x-ray showed nothing acute Constitutional Constitutional: moderate distress and average body habitus Comments: Patient is much more comfortable now that NG has been placed no longer vomiting *Routine HEENT Exam Head: Present normocephalic and atraumatic Eye: Present EOMI, PERRL and normal accommodation ENT: Present mucous membranes moist Comments: Past cataract surgery on the right *Routine Neck Exam Neck: Present supple and full ROM Routine Chest/Breast/Axilla Exam Comments: Normal findings on chest and chest wall exam no tenderness found *Routine Respiratory Exam Respiratory: Present CTA bilaterally, diminished air movement, normal respiratory effort, able to speak in complete sentences and symmetric chest movement Comments: Patient's lung exam being a 50-year smoker, is remarkably clear. Equal expansion no signs of chest wall adaption. Easy without effort to take full inspiration and expiration. Equal expansion of both sides of the lung *Routine Cardiovascular Exam Cardiovascular: Present RRR, Normal S1, Normal S2 and tachycardia Comments: Mild tachycardia patient has received a liter of fluid. Noting increase in BUN and creatinine probably related to vomiting since Saturday *Routine Abdominal Exam Abdominal: Present soft, normoactive bowel sounds and tenderness (Tenderness to deep palpation of both lower quadrants of the abdomen) *Routine Rectal Exam Rectal:: deferred *Routine Genitalia Exam Genitalia:: deferred *Routine Extremities Exam Extremities: Present full ROM and pulses intact Comments: No deficits found in the upper or lower extremities no edema at this time no limitation to any joint normal strength bilateral Routine Back/Spine/Pelvis Exam Back/Spine: Present full ROM and CVA tenderness Comments: No abnormal bruising found back appears to be normal the patient is able to stand and walk without assistance or any significant pain *Routine Skin Exam Skin: Present intact, dry and warm Comments: Poor turgor is noted in the extremities. *Routine Neurological Exam Neurological: Present alert, oriented X3, CN II-XII intact, normal tone, vision grossly intact and hearing grossly intact Routine Psychiatric Exam Psychiatric: Present normal affect, normal thought process, cooperative, good insight and good judgment Comments: The patient is aware of the diagnosis that he has a mass in his bladder and there may be some nodules that could be cancer in his lower lung H&P: Result Impressions 1. Gastroenteritis since Saturday, nausea and vomiting with diarrhea now c ontrolled NG in place 2. Hematuria with positive leukocytosis noting bladder mass found on ultrasound 3. 50-year smoker possible mets to the lung several nodule seen that are quite suspicious. Especially with a history of colon cancer 4. Due to the above diagnosis patient needs higher level of care. Is on a transfer list at this time but all beds are full awaiting notification from hospital to transfer Imaging and Cardiology CT scan - abdomen: Status: image reviewed by me and final report (Left lower lobe pulmonary nodules concerning for metastatic disease. Mildly dilated fluid-filled mid small bowel loops with distal decompression. Partial small-bowel obstruction not excluded. Transition point not identified.) Assessment and Plan *Assessment and plan (1) Nausea vomiting and diarrhea: Status: Acute Category: Medical Code(s): R11.2 - Nausea with vomiting, unspecified; R19.7 - Diarrhea, unspecified (2) SBO (small bowel obstruction): Status: Acute Category: Medical Code(s): K56.609 - Unspecified intestinal obstruction, unspecified as to partial versus complete obstruction (3) Bladder mass: Status: Acute Category: Medical Code(s): N32.89 - Other specified disorders of bladder (4) Hematuria: Status: Acute Qualifiers: Hematuria type: gross Qualified Code(s): R31.0 - Gross hematuria Category: Medical Code(s): R31.9 - Hematuria, unspecified (5) PONCE (acute kidney injury): Status: Acute Category: Medical Code(s): N17.9 - Acute kidney failure, unspecified (6) Urinary tract infection: Status: Acute Qualifiers: Hematuria presence: with hematuria Urinary tract infection type: acute cystitis Qualified Code(s): N30.01 - Acute cystitis with hematuria Category: Medical Code(s): N39.0 - Urinary tract infection, site not specified (7) Lung mass: Status: Acute Category: Medical Code(s): R91.8 - Other nonspecific abnormal finding of lung field (8) Cigarette smoker: Status: Acute Category: Social Hx Code(s): F17.210 - Nicotine dependence, cigarettes, uncomplicated (9) Moderate dehydration: Status: Acute Category: Medical Code(s): E86.0 - Dehydration Plan 1. Patient has been updated by the ER physician on the findings above, unable . . Because of this we will go ahead and place him up on the floor for comfort and not keeping him in the emergency room as this may be more than 24 hours due to the holidays to transfer at this time. Believing that the patient needs to be evaluated by urology potentially having bladder surgery.. There are no beds available at this time but he is on a waiting list. 2. Will go with slow IV fluid replacement at this time due to the increased creatinine and BUN. Hoping that this will corrected slowly. Continue with the NG to intermittent low wall suction as needed to control nausea and vomiting.. I have stopped the patient's blood thinner Eliquis. due to the amount of blood that is in the urine . Medication for nausea vomiting has been ordered., Due to the patient being a 50-year smoker presently also on oxygen will continue oxygen as needed and to do DuoNebs as needed. Because of the urinary tract infection positive leukocytes will continue the Rocephin once a day IV 3. If bed becomes available we will transport the patient as soon as practical.
[2024-03-18] VITALS (8 sets, daily range): BP systolic 106–145; BP diastolic 58–72; PULSE 77–100; RESP 17–18; TEMP 36.6–36.9; O2SAT 90–95; BMI 28.0
[2024-03-18] MEDS: IPRATROPIUM/ALBUTEROL 3 ML NEB IH ×2 (00:01→06:49)
--- NOTE | 2024-03-18 03:25 | PC.NURSE ---
Called [facility] to get an update on a bed. No beds available at this time.
[2024-03-18 07:02] LABS: Basophils % 0.5 % (0.1-2.0); Eosinophils # 0.3 K/mm3 (0.0-0.4); Eosinophils % 3.6 % (0.1-12.0); Hematocrit 36.3 % (42.0-52.0); Lymphocytes # 2.7 K/mm3 (0.7-4.5); Lymphocytes % 32.7 % (10-50); Mean Corpuscular HGB Conc 33.1 g/dL (31.8-35.4); Mean Corpuscular Hemoglobin 30.8 pg (27.0-31.2); Mean Corpuscular Volume 93.1 fl (80-94); Mean Platelet Volume 9.1 fl (7.4-10.4); Monocytes # 0.6 K/mm3 (0.1-1.0); Monocytes % 7.2 % (1.7-9.3); Neutrophils # 4.7 K/mm3 (1.8-7.8); Neutrophils % 55.8 % (37.0-80.0); Platelet Count 289 K/mm3 (142-424); White Blood Count 8.4 K/mm3 (4.8-10.8)
[2024-03-18 07:09] LABS: INR 1.05 (0.9-1.1); Prothrombin Time 11.7 seconds (10.1-12.5)
[2024-03-18 07:29] LABS: Alanine Aminotransferase 22 U/L (12-78); Albumin Level 3.9 g/dl (3.5-5.0); Albumin/Globulin Ratio 1.3 (1.1-1.8); Alkaline Phosphatase 74 U/L (38-126); Anion Gap 8.3 mEq/L (5-15); Aspartate Amino Transferase 38 U/L (17-59); Bilirubin,Total 0.5 mg/dl (0.2-1.3); Blood Urea Nitrogen 36 mg/dl (9-20); Calcium 9.1 mg/dl (8.4-10.2); Carbon Dioxide 34 mmol/L (22.0-30.0); Chloride 99 mmol/L (98-107); Creatinine Clearance Estimated 71 mL/min (50-200); Estimated Glomerular Filt Rate 55 ml/min (>60); GFR (African American) 66 ML/MIN (>60); Glucose 89 mg/dl (74-100); Potassium 4.3 mmoL/L (3.5-5.1); Sodium 137 mmol/L (136-145); Total Protein,Serum 6.9 g/dl (6.3-8.2)
[2024-03-18] MEDS: 0.9 % SODIUM CHLORIDE 1000ML 1,000 ML 100 ML IV (07:52)
[2024-03-18] MEDS: ONDANSETRON 4MG/2ML VIAL 4 MG IV (07:52)
--- NOTE | 2024-03-18 09:59 | HMH.PHAINT1 ---
Pharmacy Intervention Comments: MEDICATION RECONCILIATION COMPLETE USING EXTERNAL PHARMACY FILL HISTORY.
--- NOTE | 2024-03-18 11:25 | PC.NURSE ---
pt family selected password for pt. password is [id number]
--- NOTE | 2024-03-18 14:36 | EXP.SURG.CON ---
History of Present Illness *Admission Date: 03/17/24 *Reason for visit:: Possible partial small bowel obstruction *History of present illness: This is a 69-year-old gentleman seen in consultation from the primary service for evaluation regarding possible partial small bowel obstruction. He was admitted after presenting to the emergency department with a 3-day history of nausea, vomiting, and diarrhea. Hematuria and lower abdominal/pelvic pain also noted. He was diagnosed with significant urinary tract infection. Persistent emesis and radiographic evidence of possible partial small bowel obstruction noted upon initial evaluation (nasogastric tube placed). Currently, the patient states that he feels better . He has been passing quite a bit of gas today . Forwarded from admission H&P: This patient that was assessed in our ER. Was found to have a bladder mass. Patient was going to be transferred. But has been placed on waiting list due to the holiday there is no empty beds to send the patient to right now. Reason for need for transfer is services above the capability of our hospital for evaluation of bladder mass question urology questions surgery. Patient came to the emergency room because he had had irretractable vomiting/diarrhea since Saturday. On examining patient he had NG tube down and was no longer throwing up. Patient was noted his to having red discolored urine that was hematuria plus positive leukocyte. Denied any chest pain cough shortness of breath. Labs showed that elevated BUN elevated creatinine probably related to dehydration. CT scan showed probable mets to the lungs. The ER physician did an ultrasound which showed a very clear evident mass in the bladder. [facility] Disclaimer: The information contained in this section may have been updated after the patient was seen, as this information can be updated by other users. Medical History (Updated 03/17/24 @ 22:39 by Jak Moreira APRN) Colon cancer Cataract COPD (chronic obstructive pulmonary disease) GERD (gastroesophageal reflux disease) Peripheral vascular disease Surgical History (Updated 03/17/24 @ 22:18 by Jak Moreira APRN) H/O cataract removal with insertion of prosthetic lens History of foot surgery History of knee replacement Hx of cholecystectomy Hx of appendectomy History of colon resection Family History Other Family history of heart disease Social History (Updated 03/17/24 @ 22:19 by Jak Harish, MATH COACH) Smoking Status: Current some day smoker years smoked: 50 how long ago did patient quit smoking: February 2024 quit status: considering quitting alcohol intake: never current occupational status: unemployed Travel in the last 8 weeks: None Have you lived/traveled outside [place] in past 30 days?: No Contact w/someone who lives/traveled outside US past 30 days?: No Exposure to someone with infectious disease in past 14 days?: No Do you have a fever (greater than 100.4 F or 38 C)?: No Have you tested positive for COVID-19: No Exposed to someone with COVID-19 in past 14 days?: No Do you have a sore throat?: No Do you have a cough?: Yes Do you have any weakness?: Yes Do you have any diarrhea?: Yes Are you experiencing any unusual bleeding?: No Do you have any muscle aches/pain?: No Do you have any abdominal pain?: No Are you experiencing loss of taste or smell?: No Review of Systems *Neurologic Neurologic: Reports as per [facility] Meds Home Medications and Allergies Home Medications ?Medication ?Instructions ?Recorded ?Confirmed ?Type atorvastatin 40 mg tablet 40 mg PO DAILY 11/27/22 03/18/24 History citalopram 20 mg tablet 20 mg PO DAILY 11/27/22 03/18/24 History cyclobenzaprine 10 mg tablet 10 mg PO TID 11/27/22 03/18/24 History fluticasone fur. 100 mcg-umeclid 1 inh inhalation DAILY 11/27/22 03/18/24 History 62.5 mcg-vilant 25 mcg inhalat.powder (Trelegy Ellipta) omeprazole 20 mg capsule,delayed 20 mg PO HS 11/27/22 03/18/24 History release propranolol 10 mg tablet 10 mg PO BID 11/27/22 03/18/24 History rivaroxaban 20 mg tablet 20 mg PO QPMWITHMEAL 11/27/22 03/18/24 History ropinirole 0.5 mg tablet 0.5 mg PO TID 11/27/22 03/18/24 History New Prescriptions to Start Prescriptions: Allergies Allergy/AdvReac Type Severity Reaction Status Date / Time morphine (MORPHINE) Allergy Unknown Unknown Verified 03/17/24 14:22 allergy reaction Exam (Inpt) Vital signs and Labs for Last 24 Hours: Temp Pulse Resp BP Pulse Ox O2 Del Method O2 Flow Rate 98.1 F 95 H 18 106/62 L 91 L Room Air 2 03/18/24 08:00 03/18/24 08:00 03/18/24 08:00 03/18/24 08:00 03/18/24 08:00 03/18/24 11:00 03/18/24 08:00 Laboratory Results - last 24 hr 03/17/24 14:20: WBC 9.1, RBC 4.84, Hgb 14.6, Hct 44.3, MCV 91.5, MCH 30.2, MCHC 33.0, RDW 13.0, Plt Count 371, MPV 9.2, Neut % (Auto) 51.4, Lymph % (Auto) 36.8, [place] % (Auto) 8.4, Eos % (Auto) 2.5, Baso % (Auto) 0.6, Neut # (Auto) 4.7, Lymph # (Auto) 3.3, [place] # (Auto) 0.8, Eos # (Auto) 0.2, Baso # (Auto) 0.1, Sodium 138, Potassium 4.7, Chloride 94 L, Carbon Dioxide 33 H, Anion Gap 15.7 H, BUN 43 H, Creatinine 2.00 H, Estimated Creat Clear 47, Estimated GFR 33 L, Est GFR ( Amer) 40 L, Glucose 126 H, Calcium 10.8 H, Total Bilirubin 0.6, AST 47, ALT 28, Alkaline Phosphatase 93, Total Creatine Kinase 87, Troponin I 0.02, Total Protein 9.1 H, Albumin 4.8, Globulin 4.3 H, Albumin/Globulin Ratio 1.1, Lipase 89, SARS-CoV-2 (PCR) Not detected, HIV Ag/Ab Combo Qual Negative, Influenza A Untype (PCR) Not detected, Influenza Type B (PCR) Not detected 03/17/24 15:06: Urine Color Red, Urine Appearance Turbid, Urine pH 5.0, Ur Specific [place] >= 1.030, Urine Protein 3+ A, Urine Glucose (UA) Negative, Urine Ketones 1+, Urine Blood 3+ A, Urine Nitrate Positive A, Urine Bilirubin 1+ A, Urine Urobilinogen 1.0, Ur Leukocyte Esterase 1+ A, Urine RBC Tntc, Urine WBC 10-20, Ur Squamous Epith Cells 3-5, Urine Bacteria 1+ 12/31/24 20:22: Troponin I 0.01 03/18/24 06:34: Sodium 137, Potassium 4.3, Chloride 99, Carbon Dioxide 34 H, Anion Gap 8.3, BUN 36 H, Creatinine 1.30 H D, Estimated Creat Clear 71, Estimated GFR 55 L, Est GFR ( Amer) 66 D, Glucose 89 D, Calcium 9.1, Magnesium 2.0, Total Bilirubin 0.5, AST 38, ALT 22, Alkaline Phosphatase 74, Total Protein 6.9, Albumin 3.9 D, Globulin 3.0, Albumin/Globulin Ratio 1.3 03/18/24 06:35: WBC 8.4, RBC 3.90 L, Hgb 12.0 L D, Hct 36.3 L, MCV 93.1, MCH 30.8, MCHC 33.1, RDW 13.0, Plt Count 289, MPV 9.1, Neut % (Auto) 55.8, Lymph % (Auto) 32.7, [place] % (Auto) 7.2, Eos % (Auto) 3.6, Baso % (Auto) 0.5, Neut # (Auto) 4.7, Lymph # (Auto) 2.7, [place] # (Auto) 0.6, Eos # (Auto) 0.3, Baso # (Auto) 0.0, PT 11.7, INR 1.05 I & O for Labs for Last 24 Hours: Intake & Output 03/16/24 03/17/24 03/18/24 03/19/24 11:59 11:59 11:59 11:59 Intake Total 300 / 300 Output Total 550 / 550 Balance 300 / 300 -550 / -550 Weight 207 lb 0.225 oz Constitutional: no acute distress Respiratory: Absent respiratory distress Cardiac: Absent Tachycardia GI: Present soft Comments:: Some mild to moderate tenderness in the lower abdomen Results Labs 03/18/24 06:35 03/18/24 06:34 Labs: Laboratory Results - last 24 hr 03/17/24 14:20: WBC 9.1, RBC 4.84, Hgb 14.6, Hct 44.3, MCV 91.5, MCH 30.2, MCHC 33.0, RDW 13.0, Plt Count 371, MPV 9.2, Neut % (Auto) 51.4, Lymph % (Auto) 36.8, [place] % (Auto) 8.4, Eos % (Auto) 2.5, Baso % (Auto) 0.6, Neut # (Auto) 4.7, Lymph # (Auto) 3.3, [place] # (Auto) 0.8, Eos # (Auto) 0.2, Baso # (Auto) 0.1, Sodium 138, Potassium 4.7, Chloride 94 L, Carbon Dioxide 33 H, Anion Gap 15.7 H, BUN 43 H, Creatinine 2.00 H, Estimated Creat Clear 47, Estimated GFR 33 L, Est GFR ( Amer) 40 L, Glucose 126 H, Calcium 10.8 H, Total Bilirubin 0.6, AST 47, ALT 28, Alkaline Phosphatase 93, Total Creatine Kinase 87, Troponin I 0.02, Total Protein 9.1 H, Albumin 4.8, Globulin 4.3 H, Albumin/Globulin Ratio 1.1, Lipase 89, SARS-CoV-2 (PCR) Not detected, HIV Ag/Ab Combo Qual Negative, Influenza A Untype (PCR) Not detected, Influenza Type B (PCR) Not detected 03/17/24 15:06: Urine Color Red, Urine Appearance Turbid, Urine pH 5.0, Ur Specific [place] >= 1.030, Urine Protein 3+ A, Urine Glucose (UA) Negative, Urine Ketones 1+, Urine Blood 3+ A, Urine Nitrate Positive A, Urine Bilirubin 1+ A, Urine Urobilinogen 1.0, Ur Leukocyte Esterase 1+ A, Urine RBC Tntc, Urine WBC 10-20, Ur Squamous Epith Cells 3-5, Urine Bacteria 1+ 03/17/24 20:22: Troponin I 0.01 03/18/24 06:34: Sodium 137, Potassium 4.3, Chloride 99, Carbon Dioxide 34 H, Anion Gap 8.3, BUN 36 H, Creatinine 1.30 H D, Estimated Creat Clear 71, Estimated GFR 55 L, Est GFR ( Amer) 66 D, Glucose 89 D, Calcium 9.1, Magnesium 2.0, Total Bilirubin 0.5, AST 38, ALT 22, Alkaline Phosphatase 74, Total Protein 6.9, Albumin 3.9 D, Globulin 3.0, Albumin/Globulin Ratio 1.3 03/18/24 06:35: WBC 8.4, RBC 3.90 L, Hgb 12.0 L D, Hct 36.3 L, MCV 93.1, MCH 30.8, MCHC 33.1, RDW 13.0, Plt Count 289, MPV 9.1, Neut % (Auto) 55.8, Lymph % (Auto) 32.7, [place] % (Auto) 7.2, Eos % (Auto) 3.6, Baso % (Auto) 0.5, Neut # (Auto) 4.7, Lymph # (Auto) 2.7, [place] # (Auto) 0.6, Eos # (Auto) 0.3, Baso # (Auto) 0.0, PT 11.7, INR 1.05 Assessment and Plan *Assessment and plan (1) SBO (small bowel obstruction): Status: Acute Category: Medical Code(s): K56.609 - Unspecified intestinal obstruction, unspecified as to partial versus complete obstruction Plan: The patient does not have evidence of complete obstruction as he continues to pass flatus. He also claims that he feels better today . No need for emergent surgical intervention. Reasonable to implement drain bag trials (discussed with primary service) Gastrografin challenge or formal small bowel follow-through also reasonable...particularly if the patient does not continue to show signs of improvement Continue daily upright/flat abdominal
[2024-03-18] MEDS: CEFTRIAXONE 1 GM 1 GM in 0.9 % SODIUM CHLORIDE 50 ML IV (14:37)
--- NOTE | 2024-03-18 16:12 | PC.NURSE ---
per MD disconnect NG from suction and place drainage bag
--- NOTE | 2024-03-18 17:06 | PC.NURSE ---
pt lying in bed supine. a&ox4. NG to the L blake @58. per md, disconnected from suction and placed to a drainage bag. pt does not complain of any pain. pt educated on NPO status and was agreeable. abx given per may. no needs or complaints at this time. call light within reach.
--- NOTE | 2024-03-18 18:01 | EXP.PN ---
Subjective *Date: 03/18/24 *Time: 21:08 Exam Data for Last 24 hours Vital signs and Labs for Last 24 Hours: Temp Pulse Resp BP Pulse Ox O2 Del Method O2 Flow Rate 98.3 F 95 H 17 143/72 H 93 L Room Air 2 03/18/24 16:00 03/18/24 16:00 03/18/24 16:00 03/18/24 16:00 03/18/24 16:00 03/18/24 17:00 03/18/24 16:00 Laboratory Results - last 24 hr 03/17/24 20:22: Troponin I 0.01 03/18/24 06:34: Sodium 137, Potassium 4.3, Chloride 99, Carbon Dioxide 34 H, Anion Gap 8.3, BUN 36 H, Creatinine 1.30 H D, Estimated Creat Clear 71, Estimated GFR 55 L, Est GFR ( Amer) 66 D, Glucose 89 D, Calcium 9.1, Magnesium 2.0, Total Bilirubin 0.5, AST 38, ALT 22, Alkaline Phosphatase 74, Total Protein 6.9, Albumin 3.9 D, Globulin 3.0, Albumin/Globulin Ratio 1.3 03/18/24 06:35: WBC 8.4, RBC 3.90 L, Hgb 12.0 L D, Hct 36.3 L, MCV 93.1, MCH 30.8, MCHC 33.1, RDW 13.0, Plt Count 289, MPV 9.1, Neut % (Auto) 55.8, Lymph % (Auto) 32.7, [place] % (Auto) 7.2, Eos % (Auto) 3.6, Baso % (Auto) 0.5, Neut # (Auto) 4.7, Lymph # (Auto) 2.7, [place] # (Auto) 0.6, Eos # (Auto) 0.3, Baso # (Auto) 0.0, PT 11.7, INR 1.05 I & O for Last 24 hours: Intake & Output 03/15/24 03/16/24 03/17/24 03/18/24 23:59 23:59 23:59 23:59 Intake Total 2125 / 2125 Output Total 750 / 750 Balance 1375 / 1375 Weight 94.347 kg 93.9 kg Constitutional Constitutional: no acute distress *Routine HEENT Exam Head: Present normocephalic Eye: Present EOMI and PERRL ENT: Present mucous membranes moist *Routine Neck Exam Neck: Present supple; Absent lymphadenopathy *Routine Respiratory Exam Respiratory: Present CTA bilaterally *Routine Cardiovascular Exam Cardiovascular: Present RRR *Routine Abdominal Exam Abdominal: Present soft and normoactive bowel sounds; Absent tenderness *Routine Extremities Exam Extremities: Absent cyanosis, clubbing or edema *Routine Skin Exam Skin: Present warm; Absent rash *Routine Neurological Exam Neurological: Present alert and oriented X3 Assessment and Plan *Assessment and plan (1) Nausea vomiting and diarrhea: Status: Acute Category: Medical Code(s): R11.2 - Nausea with vomiting, unspecified; R19.7 - Diarrhea, unspecified (2) Partial small bowel obstruction: Status: Acute Category: Medical Code(s): K56.600 - Partial intestinal obstruction, unspecified as to cause Plan Dejuan Islas is a 69-year-old male with a history of COPD no home O2, colon cancer s/p resection, right lower extremity DVT, GERD, anxiety/depression who presents for nausea/vomiting/diarrhea and hematuria. Admitted for SBO and bladder mass. #Partial SBO #Possible gastroenteritis ? Presented with nausea/vomiting/diarrhea. ? CT abdomen/pelvis revealed mildly dilated fluid-filled small bowel loops with distal decompression. ? Symptoms seem to have improved today, passing gas, no abdominal pain, no nausea/vomiting. ? NG tube placed initially which has drained approximately 700 mL of bilious output, though patient has been eating ice chips. ? General Surgery consulted, recommended NG tube drain bag trials. NG tube suction stopped. ? Continue n.p.o. except ice chips for now. ? Follow-up daily KUBs. Consider small bowel follow-through tomorrow if no improvement of symptoms. #Bladder wall mass ? Gross hematuria with UA revealing RBCs too numerous to count. Also suggesting UTI. ? Urinary bladder ultrasound in the ED revealed bladder wall mass. Patient is a current smoker. Highly concerning for malignancy. ? At this time, patient is having appropriate urine output and stable H/H. Currently on transfer waitlist at numerous hospitals which are currently at max capacity. ? Continue ceftriaxone day 2. ? Follow-up urine cultures. ? Plan to restart Xarelto if H&H stable tomorrow. #COPD ? Stable. Resumed home Trelegy. Duonebs as needed. #H/o of RLE DVT - Holding Xarelto in setting of gross hematuria. Will resume once Hgb stabilizes. #GERD - Resumed home PPI. #Anxiety/depression - Resumed home SSRI. FULL CODE Holding AC as above
[2024-03-18] MEDS: 0.9 % SODIUM CHLORIDE 1000ML 1,000 ML 75 ML IV (18:03)
[2024-03-18] MEDS: SODIUM CHLORIDE 0.9% 10ML VIAL 8 ML IV (20:45)
[2024-03-18] MEDS: FAMOTIDINE 20MG/2ML VIAL 20 MG IV (20:45)
[2024-03-18] MEDS: ROPINIROLE 0.5 MG 0.5 EACH PO (20:50)
--- NOTE | 2024-03-19 03:53 | PC.NURSE ---
Patient is alert and oriented x4. Patient was observed to have eyes closed, respirations even and unlabored on room air, and no apparent distress for the majority of the shift. An NG tube remains intact to the left nare, hooked to intermittent low wall suction. Upon assessment, NG was measured at 58 cm. There has been little to no output thus far for this shift observed in the suction canister; output appearance thin and green. He has remained NPO except for ice chips this shift. No complaints of nausea/vomiting were voiced. Upon palpation of the patient's abdomen, it was found to be round, non-tender, and distended. Patient reported that his abdomen feels puffy but not painful. He reports passing gas but has not had a bowel movement for this shift. Patient has been using his urinal at the bedside; urine output has been emptied and documented accordingly. Urine appearance slightly cloudy and red brown hematuria. Auscultation of his lungs, bowels, and heart were within normal findings. Scheduled medications were administered as appropriately per MAR. Normal saline has been infusing at 75 mL/hr. At this time, the patient is resting in bed without any further complaints. Call light within reach.
[2024-03-19 04:00] VITALS: BP 135/74; PULSE 102; RESP 16; TEMP 36.8; BMI 27.6
--- NOTE | 2024-03-19 06:00 | XR_ITS ---
PROCEDURE INFORMATION: Exam: XR Abdomen Exam date and time: 03/19/2024 5:52 AM Age: 69 years old Clinical indication: Other: Sbo TECHNIQUE: Imaging protocol: Radiologic exam of the abdomen. Views: Frontal supine view of the abdomen. 1 View. COMPARISON: CT ABDOMEN PELVIS W CON 03/17/2024 3:11 PM FINDINGS: Tubes, catheters and devices: Enteric tube terminates of the distal esophagus. Gastrointestinal tract: Air dilated small bowel reaching up to 4.3 cm in diameter similar to prior cross-sectional comparison performed on 03/17/2024. Organs: Status post cholecystectomy. Bones/joints: Diffuse degenerative change of the visualized osseous structures. IMPRESSION: 1. Recommend advancement of the enteric tube as it terminates at the distal esophagus. 2. Gastrointestinal findings compatible with small bowel obstruction of similar caliber prior comparison.
--- NOTE | 2024-03-19 06:32 | P.PN_ITS ---
Subjective Patient reports: no new complaints, flatus and no bowel movement Exam Data for Last 24 hours Vital signs and Labs for Last 24 Hours: Temp Pulse Resp BP Pulse Ox O2 Del Method O2 Flow Rate 98.3 F 102 H 16 135/74 95 Room Air 2 03/19/24 04:00 03/19/24 04:00 03/19/24 04:00 03/19/24 04:00 03/18/24 20:00 03/19/24 05:00 03/18/24 18:51 Laboratory Results - last 24 hr 03/18/24 06:34: Sodium 137, Potassium 4.3, Chloride 99, Carbon Dioxide 34 H, Anion Gap 8.3, BUN 36 H, Creatinine 1.30 H D, Estimated Creat Clear 71, Estimated GFR 55 L, Est GFR ( Amer) 66 D, Glucose 89 D, Calcium 9.1, Magnesium 2.0, Total Bilirubin 0.5, AST 38, ALT 22, Alkaline Phosphatase 74, Total Protein 6.9, Albumin 3.9 D, Globulin 3.0, Albumin/Globulin Ratio 1.3 03/18/24 06:35: WBC 8.4, RBC 3.90 L, Hgb 12.0 L D, Hct 36.3 L, MCV 93.1, MCH 30.8, MCHC 33.1, RDW 13.0, Plt Count 289, MPV 9.1, Neut % (Auto) 55.8, Lymph % (Auto) 32.7, [place] % (Auto) 7.2, Eos % (Auto) 3.6, Baso % (Auto) 0.5, Neut # (Auto) 4.7, Lymph # (Auto) 2.7, [place] # (Auto) 0.6, Eos # (Auto) 0.3, Baso # (Auto) 0.0, PT 11.7, INR 1.05 I & O for Last 24 hours: Intake & Output 03/16/24 03/17/24 03/18/24 03/19/24 11:59 11:59 11:59 11:59 Intake Total 300 / 300 2487 / 2487 Output Total 1350 / 1350 Balance 300 / 300 1137 / 1137 Weight 207 lb 0.225 oz 203 lb 12.8 oz Radiology Reports for the Last 24 Hours: Morning abdominal films reveal some small bowel distention. Colonic air noted. Constitutional Constitutional: no acute distress *Routine Cardiovascular Exam Cardiovascular: Present tachycardia *Routine Abdominal Exam Abdominal: Present soft Progress Note: A&P Assessment and plan (1) Partial small bowel obstruction: Status: Acute Assessment and plan: The patient continues to pass flatus. Colonic air noted on a.m. films. Okay from surgical standpoint to remove nasogastric tube; however, continued drain bag trials or contrast studies remain reasonable if deemed appropriate/necessary per primary service.
[2024-03-19 06:36] LABS: Basophils % 0.3 % (0.1-2.0); Eosinophils # 0.3 K/mm3 (0.0-0.4); Eosinophils % 3.4 % (0.1-12.0); Hematocrit 38.3 % (42.0-52.0); Hemoglobin 12.5 g/dL (14.1-18.0); Lymphocytes # 2.4 K/mm3 (0.7-4.5); Lymphocytes % 27.5 % (10-50); Mean Corpuscular HGB Conc 32.6 g/dL (31.8-35.4); Mean Corpuscular Hemoglobin 30.3 pg (27.0-31.2); Mean Corpuscular Volume 92.7 fl (80-94); Monocytes # 0.6 K/mm3 (0.1-1.0); Monocytes % 7.2 % (1.7-9.3); Neutrophils # 5.4 K/mm3 (1.8-7.8); Neutrophils % 61.3 % (37.0-80.0); Platelet Count 301 K/mm3 (142-424); Red Blood Count 4.13 M/mm3 (4.60-6.20); Red Cell Distribution Width 12.8 % (11.5-17.5); White Blood Count 8.8 K/mm3 (4.8-10.8)
[2024-03-19 07:00] LABS: Alanine Aminotransferase 20 U/L (12-78); Albumin Level 3.9 g/dl (3.5-5.0); Albumin/Globulin Ratio 1.3 (1.1-1.8); Alkaline Phosphatase 72 U/L (38-126); Anion Gap 10.3 mEq/L (5-15); Aspartate Amino Transferase 36 U/L (17-59); Bilirubin,Total 0.5 mg/dl (0.2-1.3); Blood Urea Nitrogen 25 mg/dl (9-20); Calcium 8.9 mg/dl (8.4-10.2); Carbon Dioxide 32 mmol/L (22.0-30.0); Chloride 100 mmol/L (98-107); Creatinine Clearance Estimated 83 mL/min (50-200); Estimated Glomerular Filt Rate 66 ml/min (>60); GFR (African American) 80 ML/MIN (>60); Glucose 83 mg/dl (74-100); Potassium 4.3 mmoL/L (3.5-5.1); Sodium 138 mmol/L (136-145); Total Protein,Serum 6.9 g/dl (6.3-8.2)
[2024-03-19] MEDS: 0.9 % SODIUM CHLORIDE 1000ML 1,000 ML 75 ML IV ×2 (07:24→23:13)
[2024-03-19 07:40] VITALS: BP 131/76; PULSE 105; RESP 17; TEMP 36.6; O2SAT 90
[2024-03-19] MEDS: ROPINIROLE 1MG TABLET 0.5 MG PO ×3 (08:08→20:37)
[2024-03-19] MEDS: CITALOPRAM 20MG TABLET 20 MG PO (08:08)
[2024-03-19] MEDS: PROPRANOLOL 20MG TAB 10 MG PO ×2 (08:09→20:36)
[2024-03-19] MEDS: FLUTICASONE/UMECLIDIN/VILANTER 100/62.5/25MCG INHALER 1 PUFF IH (08:09)
--- NOTE | 2024-03-19 08:13 | FL_ITS ---
FINAL REPORT CLINICAL HISTORY: SBO FINDINGS: PROCEDURE: The patient ingested barium. Spot and overhead films were obtained. FINDINGS: The internist medical doctor md film demonstrates mild distention of the proximal small bowel loops. There is air in the colon. 6 spot films were obtained. There are dilated small bowel loops. There is no mass effect. No transition point is visualized. Contrast reaches the colon by 2 hours. The terminal ileum is obscured. IMPRESSION: Small bowel dilation without transition point could represent ileus. A low-grade small bowel obstruction is not excluded. Reviewed, Interpreted and Dictated by Christal Gonzalez MD Transcribed by Kira Martel Authenticated and . [facility]
[2024-03-19 09:52] LABS: Ferritin 107 ng/ml (17.9-464)
[2024-03-19] MEDS: DIATRIZOATE MEGLUMINE(GASTROGRAFIN) 66%-10% 120ML 360 ML PO (11:04)
[2024-03-19] MEDS: CEFTRIAXONE 1 GM 1 GM in 0.9 % SODIUM CHLORIDE 50 ML IV (14:49)
[2024-03-19 15:59] VITALS: BP 157/99; PULSE 111; RESP 16; TEMP 36.9; O2SAT 96
--- NOTE | 2024-03-19 16:13 | PC.NURSE ---
LATE ENTRY FOR 1045 floor steward/stewardess notified this rn of pt calling out to report feeling hot, sweaty and needing to vomit shortly after contrast was administered for SBO by radiology. this rn immediately entered room to find pt flushed, diaphoretic, and pale. pt had even and unlabored breathing and reported no soa or throat tightness. no rash present. pt reported that he is not allergic to contrast media and has had it before. pt given cold rag for forehead, emesis bag and fanned. pt vomited about 300ml yellow/green liquid. radiology contacted and vomiting reported. pt assisted to the bathroom where he had about 45 minutes of intermittent loose/watery brown colored stool. tape on NG loosened and peeling due to damp skin from sweating. new bandaging applied. ng found to be draining greenish clear liquid into drainage bag. NG @42cm at the nare. previous placement confirmed by radiology before injecting contrast. aware of episode. pt now resting in bed with NG in place @42 cm. pt reports resolved n/v/d and denies pain. vss.
[2024-03-19] MEDS: RIVAROXABAN 10MG TABLET 20 MG PO (17:11)
[2024-03-19] MEDS: ONDANSETRON 4MG/2ML VIAL 4 MG IV (17:11)
[2024-03-19 19:46] VITALS: BP 121/77; PULSE 113; RESP 18; TEMP 36.5; O2SAT 94
[2024-03-19] MEDS: SODIUM CHLORIDE 0.9% 10ML VIAL 8 ML IV (20:35)
[2024-03-19] MEDS: ATORVASTATIN 40MG TABLET 40 MG PO (20:35)
[2024-03-19] MEDS: FAMOTIDINE 20MG/2ML VIAL 20 MG IV (20:35)
[2024-03-19] MEDS: PANTOPRAZOLE 40MG TABLET 40 MG PO (20:36)
--- NOTE | 2024-03-19 22:45 | P.PN_ITS ---
Subjective *Date: 03/19/24 *Time: 22:45 Interval history: Having bowel movements after small bowel follow-through. Started clear liquid diet. Exam Data for Last 24 hours Vital signs and Labs for Last 24 Hours: Temp Pulse Resp BP Pulse Ox O2 Del Method O2 Flow Rate 97.7 F 113 H 18 121/77 94 L Room Air 2 03/19/24 19:46 03/19/24 19:46 03/19/24 19:46 03/19/24 19:46 03/19/24 19:46 03/19/24 19:46 03/18/24 18:51 Laboratory Results - last 24 hr 03/19/24 06:26: WBC 8.8, RBC 4.13 L, Hgb 12.5 L, Hct 38.3 L, MCV 92.7, MCH 30.3, MCHC 32.6, RDW 12.8, Plt Count 301, MPV 9.0, Neut % (Auto) 61.3, Lymph % (Auto) 27.5, [place] % (Auto) 7.2, Eos % (Auto) 3.4, Baso % (Auto) 0.3, Neut # (Auto) 5.4, Lymph # (Auto) 2.4, [place] # (Auto) 0.6, Eos # (Auto) 0.3, Baso # (Auto) 0.0, Sodium 138, Potassium 4.3, Chloride 100, Carbon Dioxide 32 H, Anion Gap 10.3, BUN 25 H D, Creatinine 1.10, Estimated Creat Clear 83, Estimated GFR 66, Est GFR ( Amer) 80 D, Glucose 83, Calcium 8.9, Ferritin 107, Total Bilirubin 0.5, AST 36, ALT 20, Alkaline Phosphatase 72, Total Protein 6.9, Albumin 3.9, Globulin 3.0, Albumin/Globulin Ratio 1.3 I & O for Last 24 hours: Intake & Output 03/16/24 03/17/24 03/18/24 03/19/24 23:59 23:59 23:59 23:59 Intake Total 2125 / 2787 1749 / 1749 Output Total 950 / 1050 575 / 575 Balance 1175 / 1737 1174 / 1174 Weight 94.347 kg 93.9 kg 92.442 kg Microbiology Reports for the Last 24 Hours: Microbiology 03/17/24 15:06 Urine,Clean Catch Urine Culture - Final No growth. Constitutional Constitutional: no acute distress *Routine HEENT Exam Head: Present normocephalic Eye: Present EOMI and PERRL ENT: Present mucous membranes moist *Routine Neck Exam Neck: Present supple; Absent lymphadenopathy *Routine Respiratory Exam Respiratory: Present CTA bilaterally *Routine Cardiovascular Exam Cardiovascular: Present RRR *Routine Abdominal Exam Abdominal: Present soft and normoactive bowel sounds; Absent tenderness *Routine Extremities Exam Extremities: Absent cyanosis, clubbing or edema *Routine Skin Exam Skin: Present warm; Absent rash *Routine Neurological Exam Neurological: Present alert and oriented X3 Assessment and Plan *Assessment and plan (1) Nausea vomiting and diarrhea: Status: Acute Category: Medical Code(s): R11.2 - Nausea with vomiting, unspecified; R19.7 - Diarrhea, unspecified (2) Partial small bowel obstruction: Status: Acute Category: Medical Code(s): K56.600 - Partial intestinal obstruction, unspecified as to cause Plan Dejuan Islas is a 69-year-old male with a history of COPD no home O2, colon cancer s/p resection, right lower extremity DVT, GERD, anxiety/depression who presents for nausea/vomiting/diarrhea and hematuria. Admitted for SBO and bladder mass. #Partial SBO #Possible gastroenteritis ? Presented with nausea/vomiting/diarrhea. ? CT abdomen/pelvis revealed mildly dilated fluid-filled small bowel loops with distal decompression. - Given small bowel follow through, findings consistent with mild partial SBO. - Patient has significant watery bowel movements right after small bowel follow through, but also had nausea/vomiting - Started clear liquid diet. Follow tolerance. ? General Surgery following, assisting with care. ? Follow-up daily KUBs. . #Bladder wall mass ? Gross hematuria with UA revealing RBCs too numerous to count. Also suggesting UTI. ? Urinary bladder ultrasound in the ED revealed bladder wall mass. Patient is a current smoker. Highly concerning for malignancy. ? At this time, patient is having appropriate urine output and stable H/H. Currently on transfer waitlist at numerous hospitals which are currently at max capacity. ? Urine cultures showed no growth, discontinued ceftriaxone. ? Restarted Xarelto given stable Hgb. #COPD ? Stable. Resumed home Trelegy. Duonebs as needed. #H/o of RLE DVT - Resumed Xarelto as above. #GERD - Resumed home PPI. #Anxiety/depression - Resumed home SSRI. FULL CODE Holding AC as above
[2024-03-20 04:00] VITALS: BP 129/64; PULSE 98; RESP 16; TEMP 36.8; O2SAT 91; BMI 29.1
--- NOTE | 2024-03-20 04:00 | PC.NURSE ---
Addendum entered by Muriel Betts RN 03/20/24 05:10: RT contacted at this time. PT offered duoneb. Pt stated No they give him heartburn hes not taking it, also states that he wears 2L periodically at home when he feels like he needs it. Original Note: Pt sats in low 80s on RA. 2L NC applied at this time Pt sats improved to 91%
[2024-03-20 05:53] LABS: HCV Ab Non Reactive (Non Reactive)
[2024-03-20] MEDS: FLUTICASONE/UMECLIDIN/VILANTER 100/62.5/25MCG INHALER 1 PUFF IH (06:34)
--- NOTE | 2024-03-20 07:48 | XR_ITS ---
FINAL REPORT CLINICAL HISTORY: ileus vs partial sbo COMPARISON: 03/19/2024 FINDINGS: A PA view of the chest was obtained. The cardiac and mediastinal silhouettes are within normal limits. Left basilar opacity is unchanged. NG tube is in the distal esophagus. It does not extend below the diaphragm. There is no free air beneath the diaphragm. Upright and supine views of the abdomen were obtained. Contrast is seen to the rectum. There continues to be dilatation of small bowel loops. Increased gas is seen in the colon. IMPRESSION: NG tube is in the distal esophagus. Recommend advancing. Contrast has reached the rectum. There is no complete obstruction however there is dilatation of small bowel loops, may represent ileus versus small bowel obstruction. Reviewed, Interpreted and Dictated by Christal Gonzalez MD Transcribed by Delilah Golden Authenticated and . [facility]
[2024-03-20 08:00] VITALS: BP 97/50; PULSE 87; RESP 20; TEMP 36.8; O2SAT 94
--- NOTE | 2024-03-20 08:30 | EXP.SURG.PN ---
Subjective Patient reports: flatus, bowel movement and diarrhea Exam Data for Last 24 hours Vital signs and Labs for Last 24 Hours: Temp Pulse Resp BP Pulse Ox O2 Del Method O2 Flow Rate 98.2 F 98 H 16 129/64 91 L Nasal Cannula 2 03/20/24 04:00 03/20/24 04:00 03/20/24 04:00 03/20/24 04:00 03/20/24 04:00 03/20/24 06:33 03/20/24 06:33 Laboratory Results - last 24 hr 03/17/24 14:20: Hepatitis C Antibody Non reactive 03/19/24 06:26: Ferritin 107 I & O for Last 24 hours: Intake & Output 03/17/24 03/18/24 03/19/24 03/20/24 11:59 11:59 11:59 11:59 Intake Total 300 / 300 3094 / 3094 975 / 975 Output Total 1425 / 1425 750 / 750 Balance 300 / 300 1669 / 1669 225 / 225 Weight 207 lb 0.225 oz 203 lb 12.8 oz 215 lb Microbiology Reports for the Last 24 Hours: Microbiology 03/17/24 15:06 Urine,Clean Catch Urine Culture - Final No growth. Constitutional Constitutional: no acute distress *Routine Respiratory Exam Respiratory: Absent respiratory distress *Routine Abdominal Exam Abdominal: Present soft Progress Note: A&P Assessment and plan (1) Partial small bowel obstruction: Status: Acute Assessment and plan: Some persistent small bowel dilation noted on most recent films; however, obvious contrast within the colon confirmed. The patient is now having diarrhea most likely secondary to recent contrast study. Okay from surgical standpoint to remove nasogastric tube and slowly advance diet Avoid carbonation for now
[2024-03-20 09:53] LABS: Basophils % 0.5 % (0.1-2.0); Eosinophils # 0.3 K/mm3 (0.0-0.4); Eosinophils % 3.5 % (0.1-12.0); Hematocrit 39.9 % (42.0-52.0); Hemoglobin 12.7 g/dL (14.1-18.0); Lymphocytes # 2.7 K/mm3 (0.7-4.5); Lymphocytes % 30.5 % (10-50); Mean Corpuscular HGB Conc 31.8 g/dL (31.8-35.4); Mean Corpuscular Volume 94.1 fl (80-94); Monocytes # 0.4 K/mm3 (0.1-1.0); Monocytes % 4.9 % (1.7-9.3); Neutrophils # 5.2 K/mm3 (1.8-7.8); Neutrophils % 60.3 % (37.0-80.0); Platelet Count 313 K/mm3 (142-424); Red Blood Count 4.24 M/mm3 (4.60-6.20); Red Cell Distribution Width 12.9 % (11.5-17.5); White Blood Count 8.7 K/mm3 (4.8-10.8)
[2024-03-20 10:05] LABS: Chloride 99 mmol/L (98-107); Potassium 3.6 mmoL/L (3.5-5.1); Sodium 137 mmol/L (136-145)
[2024-03-20 10:08] LABS: Alanine Aminotransferase 25 U/L (12-78); Albumin/Globulin Ratio 1.3 (1.1-1.8); Alkaline Phosphatase 63 U/L (38-126); Anion Gap 12.6 mEq/L (5-15); Aspartate Amino Transferase 40 U/L (17-59); Bilirubin,Total 0.4 mg/dl (0.2-1.3); Blood Urea Nitrogen 31 mg/dl (9-20); Carbon Dioxide 29 mmol/L (22.0-30.0); Creatinine Clearance Estimated 69 mL/min (50-200); Estimated Glomerular Filt Rate 50 ml/min (>60); GFR (African American) 61 ML/MIN (>60)
[2024-03-20 10:09] LABS: Calcium 8.8 mg/dl (8.4-10.2); Glucose 117 mg/dl (74-100)
[2024-03-20] MEDS: ROPINIROLE 1MG TABLET 0.5 MG PO ×2 (10:11→12:03)
[2024-03-20] MEDS: PROPRANOLOL 20MG TAB 10 MG PO (10:11)
[2024-03-20] MEDS: CITALOPRAM 20MG TABLET 20 MG PO (10:12)
--- NOTE | 2024-03-20 14:41 | EXP.DC.SUM ---
General Admission date:: 03/17/24 HPI HPI HPI: This is a 69-year-old gentleman seen in consultation from the primary service for evaluation regarding possible partial small bowel obstruction. He was admitted after presenting to the emergency department with a 3-day history of nausea, vomiting, and diarrhea. Hematuria and lower abdominal/pelvic pain also noted. He was diagnosed with significant urinary tract infection. Persistent emesis and radiographic evidence of possible partial small bowel obstruction noted upon initial evaluation (nasogastric tube placed). Currently, the patient states that he feels better . He has been passing quite a bit of gas today . Forwarded from admission H&P: This patient that was assessed in our ER. Was found to have a bladder mass. Patient was going to be transferred. But has been placed on waiting list due to the holiday there is no empty beds to send the patient to right now. Reason for need for transfer is services above the capability of our hospital for evaluation of bladder mass question urology questions surgery. Patient came to the emergency room because he had had irretractable vomiting/diarrhea since Saturday. On examining patient he had NG tube down and was no longer throwing up. Patient was noted his to having red discolored urine that was hematuria plus positive leukocyte. Denied any chest pain cough shortness of breath. Labs showed that elevated BUN elevated creatinine probably related to dehydration. CT scan showed probable mets to the lungs. The ER physician did an ultrasound which showed a very clear evident mass in the bladder. Hospital Course Hospital Course Hospital Course: Dejuan Islas is a 69-year-old male with a history of COPD no home O2, colon cancer s/p resection, right lower extremity DVT, GERD, anxiety/depression who presents for nausea/vomiting/diarrhea and hematuria. Admitted for SBO and bladder mass. #Partial SBO #Possible gastroenteritis ? Presented with nausea/vomiting/diarrhea. Had had multiple abdominal surgeries in the past. ? CT abdomen/pelvis revealed mildly dilated fluid-filled small bowel loops with distal decompression. - Clinically improved with bowel rest, NG tube decompression, therapeutic small bowel follow-though, and slowly advancing diet. - Given small bowel follow through, findings consistent with mild partial SBO. ? General Surgery following, assisted with care without need for surgical intervention. - Tolerating PO intake without N/V or abdominal pain, ambulating independently. - Medically stable for discharge. Counseled to continue to advance diet as tolerated. #Bladder wall mass ? Gross hematuria with UA revealing RBCs too numerous to count. However, urine culture normal. ? Urinary bladder ultrasound in the ED revealed bladder wall mass. Patient is a current smoker. Highly concerning for malignancy. ? At this time, patient is having appropriate urine output and stable H/H. Intially on transfer waitlist at multiple hospitals but at max capacity, but given stability will pursue outpatient evaluation and management. ? Urine cultures showed no growth, discontinued ceftriaxone. ? Restarted Xarelto given stable Hgb, continued to be stable at 12.7. #COPD ? Stable. Resumed home Trelegy. #H/o of RLE DVT - Resumed Xarelto as above. #GERD - Resumed home PPI. #Anxiety/depression - Resumed home SSRI. Exam Data for Last 24 hours Vital signs and Labs for Last 24 Hours: Temp Pulse Resp BP Pulse Ox O2 Del Method O2 Flow Rate 98.2 F 87 20 97/50 L 94 L Nasal Cannula 2 03/20/24 08:00 03/20/24 08:00 03/20/24 08:00 03/20/24 08:00 03/20/24 08:00 03/20/24 11:00 03/20/24 11:00 Laboratory Results - last 24 hr 03/17/24 14:20: Hepatitis C Antibody Non reactive 03/20/24 09:40: WBC 8.7, RBC 4.24 L, Hgb 12.7 L, Hct 39.9 L, MCV 94.1 H, MCH 30.0, MCHC 31.8, RDW 12.9, Plt Count 313, MPV 9.0, Neut % (Auto) 60.3, Lymph % (Auto) 30.5, [place] % (Auto) 4.9, Eos % (Auto) 3.5, Baso % (Auto) 0.5, Neut # (Auto) 5.2, Lymph # (Auto) 2.7, [place] # (Auto) 0.4, Eos # (Auto) 0.3, Baso # (Auto) 0.0, Sodium 137, Potassium 3.6, Chloride 99, Carbon Dioxide 29, Anion Gap 12.6, BUN 31 H, Creatinine 1.40 H D, Estimated Creat Clear 69, Estimated GFR 50 L, Est GFR ( Amer) 61 D, Glucose 117 H, Calcium 8.8, Total Bilirubin 0.4, AST 40, ALT 25, Alkaline Phosphatase 63, Total Protein 7.0, Albumin 4.0, Globulin 3.0, Albumin/Globulin Ratio 1.3 I & O for Last 24 hours: Intake & Output 03/17/24 03/18/24 03/19/24 03/20/24 23:59 23:59 23:59 23:59 Intake Total 2125 / 2787 1749 / 2244 855 / 855 Output Total 950 / 1050 575 / 575 750 / 750 Balance 1175 / 1737 1174 / 1669 105 / 105 Weight 94.347 kg 93.9 kg 92.442 kg 97.522 kg Constitutional Constitutional: no acute distress *Routine HEENT Exam Head: Present normocephalic Eye: Present EOMI and PERRL ENT: Present mucous membranes moist *Routine Neck Exam Neck: Present supple; Absent lymphadenopathy *Routine Respiratory Exam Respiratory: Present CTA bilaterally *Routine Cardiovascular Exam Cardiovascular: Present RRR *Routine Abdominal Exam Abdominal: Present soft and normoactive bowel sounds; Absent tenderness *Routine Extremities Exam Extremities: Absent cyanosis, clubbing or edema *Routine Skin Exam Skin: Present warm; Absent rash *Routine Neurological Exam Neurological: Present alert and oriented X3 Results Data Completed and Pending Labs on day of discharge: Labs from last 24 hours 03/20/24 03/17/24 09:40 14:20 WBC 8.7 RBC 4.24 L Hgb 12.7 L Hct 39.9 L MCV 94.1 H MCH 30.0 MCHC 31.8 RDW 12.9 Plt Count 313 MPV 9.0 Neut % (Auto) 60.3 Lymph % (Auto) 30.5 [place] % (Auto) 4.9 Eos % (Auto) 3.5 Baso % (Auto) 0.5 Neut # (Auto) 5.2 Lymph # (Auto) 2.7 [place] # (Auto) 0.4 Eos # (Auto) 0.3 Baso # (Auto) 0.0 Sodium 137 Potassium 3.6 Chloride 99 Carbon Dioxide 29 Anion Gap 12.6 BUN 31 H Creatinine 1.40 H D Estimated Creat Clear 69 Estimated GFR 50 L Est GFR ( Amer) 61 D Glucose 117 H Calcium 8.8 Total Bilirubin 0.4 AST 40 ALT 25 Alkaline Phosphatase 63 Total Protein 7.0 Albumin 4.0 Globulin 3.0 Albumin/Globulin Ratio 1.3 Hepatitis C Antibody Non reactive DS: Diagnosis Discharge Diagnosis (1) Partial small bowel obstruction: Status: Acute Code(s): K56.600 - Partial intestinal obstruction, unspecified as to cause Meds Home Medications and Allergies Home Medications ?Medication ?Instructions ?Recorded ?Confirmed ?Type atorvastatin 40 mg tablet 40 mg PO DAILY 11/27/22 03/30/24 History citalopram 20 mg tablet 20 mg PO DAILY 11/27/22 03/30/24 History cyclobenzaprine 10 mg tablet 10 mg PO TID 11/27/22 03/30/24 History fluticasone fur. 100 mcg-umeclid 1 inh inhalation DAILY 11/27/22 03/30/24 History 62.5 mcg-vilant 25 mcg inhalat.powder (Trelegy Ellipta) omeprazole 20 mg capsule,delayed 20 mg PO HS 11/27/22 03/30/24 History release propranolol 10 mg tablet 10 mg PO BID 11/27/22 03/30/24 History rivaroxaban 20 mg tablet 20 mg PO QPMWITHMEAL 11/27/22 03/30/24 History ropinirole 0.5 mg tablet 0.5 mg PO TID 11/27/22 03/30/24 History nitrofurantoin 100 mg PO 03/30/24 03/30/24 History monohydrate/macrocrystals 100 mg capsule New Prescriptions to Start Prescriptions: Allergies Allergy/AdvReac Type Severity Reaction Status Date / Time morphine (MORPHINE) Allergy Unknown Unknown Verified 03/30/24 09:13 allergy reaction Discharge Plan Disposition Patient Disposition: Home, Self-Care Condition: Fair Discharge Order Discharge Orders: Discharge Order (Routine); Ordered 03/20/24 Ordered By: Prasad Kaplan Follow up Plan Follow up with: Prasad Ramirez MD [Staff Physician] - 03/30/24 9:15 am Riley Hunter MD [Referring] - 03/25/24 9:00 am Melchor Anderson MD [Physician] - 05/19/24 11:20 am Prescriptions/Medication Reconciliation: Continued atorvastatin 40 mg Tablet 40 mg PO DAILY propranolol 10 mg Tablet 10 mg PO BID citalopram 20 mg Tablet 20 mg PO DAILY ropinirole 0.5 mg Tablet 0.5 mg PO TID omeprazole 20 mg Capsule,Delayed Release(Dr/Ec) 20 mg PO HS rivaroxaban 20 mg Tablet 20 mg PO QPMWITHMEAL Trelegy Ellipta 100-62.5-25 mcg Blister With Device 1 inh INHALATION DAILY Held cyclobenzaprine 10 mg Tablet 10 mg PO TID Hold Instructions: Resume on 04/10/24. This medication can cause dizziness, falls, drowsiness. I would encourage stopping it. No Action nitrofurantoin monohyd/m-cryst 100 mg capsule 100 mg PO Patient Comments: TAKE 1 CAPSULE BY MOUTH TWICE A DAY FOR 7 DAYS Problem Reconciliation Problems Reviewed?: Yes Patient Discharge Instructions Additional Instructions: urology will call you with an office appointment. We have also referred you to Dr. Rmairez, our urologist here. Patient Instructions: DI for Mechanical Bowel Obstruction, Low-Fiber/Low-Residue Diet, Acute Kidney Injury, DI for Urinary Tract Infection (UTI), DI for Hematuria Print Language: Welsh Providers Primary Care Provider: Provider,Referral Admit Provider: Jeremy Mcgrath Attending Provider: Jeremy Mcgrath
--- NOTE | 2024-03-24 12:27 | CARE MANAGER ---
Unable to reach patient to discuss recent discharge. Call attempted x 2 and VM left.
== END 2024-03-20 15:58 | disposition home or self-care (01) | DRG 390 ==
LOC: ER 15:37 → 2ND 21:14
PROVIDERS: Emergency Medicine; Nurse Practitioner Family; Student in an Organized Health Care Education/Training Program; Admitting Provider Internal Medicine Adolescent Medicine; Emergency Provider Emergency Medicine; Visit Provider Internal Medicine Adolescent Medicine
DX: K56.600 Partial intestinal obstruction, unspecified as to cause (principal); J44.9 Chronic obstructive pulmonary disease, unspecified; K21.9 Gastro-esophageal reflux disease without esophagitis; I73.9 Peripheral vascular disease, unspecified; F41.9 Anxiety disorder, unspecified; R91.8 Other nonspecific abnormal finding of lung field; N32.9 Bladder disorder, unspecified; F17.210 Nicotine dependence, cigarettes, uncomplicated; F32.A Depression, unspecified; Z79.899 Other long term (current) drug therapy; Z85.038 Personal history of other malignant neoplasm of large intestine; Z86.718 Personal history of other venous thrombosis and embolism; Z90.49 Acquired absence of other specified parts of digestive tract; Z79.51 Long term (current) use of inhaled steroids; Z79.01 Long term (current) use of anticoagulants
CPT/HCPCS: 36415; 71045; 74018; 74021; 74177; 74250; 80053; 81001; 82550; 82728; 83690; 83735; 84484; 85025; 85610; 86803; 87086; 87389; 87636; 93005; 94640; 94761; 99291; J0696; J2405; J7030; J7120; J7620; Q9963; Q9967; S0028

== ENCOUNTER 2024-03-30 09:48 | Outpatient (CLI) | payer MEDICARE, MEDICAID, SELFPAY ==
[2024-03-30 10:55] LABS: Blood Urea Nitrogen 16 mg/dl (9-20); Estimated Glomerular Filt Rate 84 ml/min (>60); GFR (African American) 101 ML/MIN (>60)
[2024-03-30 16:40] LABS: Microscopic, Urine URINE MICROSCOPIC (MICROSCOPIC)
[2024-03-30 18:41] LABS: Appearance,Urine CLOUDY (Clear); Blood, Urine 3+ (Negative); Color,Urine AMBER (Yellow); Glucose,Urine (UA) Negative (Negative); Ketones,Urine Negative (Negative); Leukocyte Esterase,Urine Negative (Negative); Nitrate,Urine POSITIVE (Negative); Protein,Urine 1+ (Negative); Specific Gravity, Urine 1.025 (1.005-1.030); Urobilinogen,Urine 0.2 EU/dl (0.2)
[2024-03-30 18:47] LABS: Bilirubin,Urine 1+ (Negative)
[2024-03-30 20:51] LABS: Bacteria,Urine Trace /lpf; RBC,Urine TNTC #/hpf (0-3); WBC,Urine Occasional #/hpf (0-3)
[2024-03-31 08:14] LABS: PSA, Free 0.11 ng/mL; Prostate Specific Ag 0.2 ng/mL (0.0-4.0); Sex Hormone Binding Globulin 62.1 nmol/L (19.3-76.4); Testosterone,Total 55 ng/dL (264-916)
== END 2024-03-30 23:59 | disposition home or self-care (01) ==
LOC: LAB 09:50
PROVIDERS: PCP Internal Medicine Cardiovascular Disease; Visit Provider Urology
DX: N19 Unspecified kidney failure (principal); N40.0 Benign prostatic hyperplasia without lower urinary tract symptoms
CPT/HCPCS: 36415; 81001; 82565; 84153; 84154; 84270; 84403; 84520; 87086

== ENCOUNTER 2024-04-03 06:55 | Day surgery (SDC) | payer MEDICARE, MEDICAID, SELFPAY ==
[2024-04-01 10:56] VITALS: BMI 28.2
[2024-04-03 07:14] VITALS: BP 138/78; PULSE 83; RESP 18; TEMP 36.6; O2SAT 96
[2024-04-03] MEDS: LIDOCAINE 2% UROJET 10ML 10 ML (08:08)
[2024-04-03] MEDS: 0.9 % SODIUM CHLORIDE 1000ML 1,000 ML 999 ML IV (08:12)
[2024-04-03 08:15] VITALS: BP 120/75; PULSE 81; RESP 16; TEMP 36.9; O2SAT 95
--- NOTE | 2024-04-03 08:17 | HMH.PROCNOTE ---
[facility] Procedure Note Date: 04/03/24 Time: 08:17 Procedure Note:: Chart review: The patient is here for further evaluation of microscopic hematuria. His urine culture and sensitivity on 04/11 is negative. He has a CAT scan with infusion on 03/10 showed the kidneys and ureters to be normal. There is concern over a possible metastatic lung lesion. Preop diagnosis: Hematuria Postop diagnosis hematuria/bladder cancer Operative note. The patient was brought to the cystoscopy room he is prepped and draped in the usual fashion. He underwent flexible cystoscopy. The anterior urethra is unremarkable. From the level of the verumontanum the patient has grade 2 prostate obstruction. He has a small median lobe. Inspection of the bladder shows a medium sized bladder tumor on the posterior to the posterior right bladder wall. The patient urine in the bladder is hemorrhagic and it makes complete inspection somewhat difficult. The ureteral orifice ease are normal bilaterally. The patient tolerated the procedure well.
[2024-04-03 08:22] VITALS: BP 121/69; PULSE 80; RESP 16; TEMP 36.9; O2SAT 96
--- NOTE | 2024-04-03 08:42 | SUR.PHASEII ---
0839: LM for BJ in Dr. Ramirez's office to make [facility] appointment for pt to undergo a TURBT.
== END 2024-04-03 08:40 | disposition home or self-care (01) ==
PROVIDERS: PCP Family Medicine; Visit Provider Urology
PROC: 0TJB8ZZ Inspection of Bladder, Via Natural or Artificial Opening Endoscopic (ICD-10-PCS; CPT 52000; principal; 2024-04-03 08:15)
DX: R31.29 Other microscopic hematuria (principal); C67.4 Malignant neoplasm of posterior wall of bladder
CPT/HCPCS: 52000; J7030

== ENCOUNTER 2025-01-20 13:12 | Emergency (ER) | payer MEDICARE, MEDICAID, SELFPAY ==
[2025-01-20] VITALS (7 sets, daily range): BP systolic 100–130; BP diastolic 59–74; PULSE 85–92; RESP 18–20; TEMP 36.7; O2SAT 92–95; BMI 27.1
--- OUTSIDE RECORDS SUMMARY | 2025-01-20 13:35 | XMS_ITS | Encounter Summary ---
Author Organization [place] [address] Care Team Providers Care Day Spa Manager Name Role Phone Riley Hunter MD Primary Care Provider [phone] Reason for Visit * Reason Onset Date Comments Other 10/27/2024 Daughter needing # of liters pt is on for his vein access technician at [facility]. Please advise. Encounter Details Date Type Department Care Team (Late st Contact Info) Description 10/27/2024 Telephone SEP [facility] [place] [address] [phone] Riley Hunter MD [facility] [place] [address] Other (Daughter needing # of liters pt is on for his vein access technician at [facility]. Please advise.) Social History Tobacco Use Types Packs/Day Years Used Date Smoking Tobacco: Every Day Cigarettes 1 62.8 Started: 03/18/1962; Last attempted to quit: 12/13/2022 Cigars Last attempted to quit: 2019 Passive Smoke Exposure: Past Smokeless Tobacco: Never Alcohol Use Standard Drinks/Week Comments Yes 7 (1 standard drink = 0.6 oz pur e alcohol) PHQ-2 Answer Date Recorded PHQ-2 Total Score 0 06/01/2024 Hunger Vital Sign Answer Date Recorded Within the past 12 months, y ou worried that your food would run out before you got the money to buy more. Never true 03/25/19 25 Within the past 12 months, t he food you bought just didn't last and you didn't have money to get more. Never true 03/25/2024 PRAPARE - Transportation Answer Date Re corded In the past 12 months, has l ack of transportation kept you from medical appointments or from getting medications? No 10/2024 In the past 12 months, has l ack of transportation kept you from meetings, work, or from getting things needed for daily living? No 03/25/2024 Housing Stability Vital Sign Answer Mario e Recorded In the last 12 months, was t here a time when you were not able to pay the mortgage or rent on time? No 03/25/2024 Number of Times Moved in the Last Year Not on fi le 03/25/2024 At any time in the past 12 m [facility], were you homeless or living in a [facility] (including now)? No 03/25/2024 Sex and Gender Information Value Date Recorded Sex Assigned at Not on file Legal Sex Male 10:18 PM EDT Gender Identity Not on file Sexual Orientation Not on file documented as of this encounter Functional Status * Is the person deaf or does he/she have serious difficulty hearing? Answer Date of Assessment Author No 09/08/2020 10:28 AM Skyler Barron CMA * Is the person blind or does he/she have serious difficulty seeing even when wearing glasses? Answer Date of Assessment Author No 09/08/2020 10:28 AM Skyler Barron CMA * Does this person have serious difficulty walking or climbing stairs? Answer Date of Assessment Author No 09/08/2020 10:28 AM Skyler Barron CMA * Does this person have difficulty dressing or bathing? Answer Date of Assessment Author No 09/08/2020 10:28 AM Skyler Barron CMA * Because of a physical, mental or emotional condition, does this person have difficulty doing errands alone such as visiting a doctor's office or shopping? Answer Date of Assessment Author No 09/08/2020 10:28 AM Skyler Barron CMA documented as of this encounter Mental Status * Because of a physical, mental or emotional condition, does this person have serious difficulty concentrating, remembering or making decisions? Answer Entry Date Author No 09/08/2020 10:28 AM EDT Skyler Cheng CMA documented in this encounter Miscellaneous Notes * Telephone Encounter - Elie Daigle MA - 10/27/2024 10:55 AM EDT Daughter informed * Telephone Encounter - Nieves Azul - 10/27/2024 10:25 AM EDT Select the most appropriate reason for this telephone message: Other Who is calling (name & relationship to patient if not the patient): daughter What is needed OR why are they calling: daughter called asking for the amt of liters of oxygen he'scurrently on so she can pass along this information to pulmonology. Neither she nor pt can rememberhow much he's currently on. When is this needed by: today Where does this information need to go: PCP Return Method of Communication: Phone Call Additional information:please advise documented in this encounter Plan of Treatment Upcoming Encounters Date Type Department Care Team (Late st Contact Info) Description 02/25/2025 12:30 PM EST Appointment [facility] [place] [address] Fazal Craig MD [address] [place] [address] 02/25/2025 2:20 PM EST Office Visit [facility] [address] [place] [address] [place] [phone] Fazal Craig MD [address] [place] [address] documented as of this encounter Goals Goal Patient Goal Type Associated Problems Recent Progress Patient-Stated? Author Eat better, exercise, reach an ideal body weight General No Sadie Arenas RMA Stay Tobacco Free Lifestyle No Sadie Arenas RMA documented as of this encounter Visit Diagnoses Not on filedocumented in this encounter Additional Health Concerns Assessment Noted Time A fall risk assessment has been complete d for the patient 02/07/2024 12:04 PM EST documented as of this encounter Care Teams Day Spa Manager Relationship Specialty Start Date End Date Riley Hunter MD [address] [place] [id number] PCP - General Family Medicine 09/12/23 documented as of this encounter
--- OUTSIDE RECORDS SUMMARY | 2025-01-20 13:35 | XMS_ITS | Encounter Summary ---
Author Organization [place] [address] Care Team Providers Care Table Games Dual Rate Supervisor Name Role Phone Riley Hunter MD Primary Care Provider [phone] Reason for Visit * Reason Comments Medication Refill Encounter Details Date Type Department Care Team (Late st Contact Info) Description 12/28/2024 Refill SEP [facility] [place] [phone] Riley Hunter MD [address] [place] [address] [place] [phone] Medication Refill Social History Tobacco Use Types Packs/Day Years [...] time in the past 12 m [facility], were you homeless or living in a f[facility] (including now)? No 03/25/2024 Sex and Gender [...] Entry Date Author No 09/08/2020 10:28 AM Skyler aBrron CMA documented in this encounter Ordered Prescriptions Prescription Sig Dispense Quantity Refills Last Filled Start Date End Date XARELTO 20 mg Oral TabletIndications:C hronic deep vein thrombosis (DVT) of other vein of right lower extremity (HCC) TAKE 1 TABLET EVERY DAY 90 Tablet 3 12/28/2024 documented in this encounter Plan of Treatment Upcoming Encounters Date Type Department Care Team (Late st Contact Info) Description 02/25/2025 12:30 PM EST Appointment [facility] [address] Fazal Craig MD [address] [place] [address] [address] [place] [address] 02/25/2025 2:20 PM EST Office Visit [facility] [address] [facility] [address] [place] [address] Fazal Craig MD [address] [place] [address] [address] [place] [address] documented as of this encounter Goals Goal Patient Goal Type Associated Problems Recent Progress Patient-Stated? Author Eat better, exercise, reach an ideal body weight General No Sadie Arenas RMA Stay Tobacco Free Lifestyle No Sadie Arenas RMA documented as of this encounter Visit Diagnoses Diagnosis Chronic deep vein thrombosis (DVT) of other vein of right lower extremity (HCC) documented in this encounter Discontinued Medications Medication Sig Discontinue Reason Start Date End Da te XARELTO 20 mg Oral TabletIndications:Chroni c deep vein thrombosis (DVT) of other vein of right lower extremity (HCC) TAKE 1 TABLET EVERY DAY 11/25/2023 12/28/2024 documented as of this encounter Additional Health Concerns Assessment Noted Time A fall risk assessment has been complete d for the patient 02/07/2024 12:04 PM EST documented as of this encounter Care Teams Table Games Dual Rate Supervisor Relationship Specialty Start Date End Date Riley Hunter MD [address] [place] [id number] PCP - General Family Medicine 09/12/23 documented as of this encounter
--- OUTSIDE RECORDS SUMMARY | 2025-01-20 13:36 | XMS_ITS | Continuity of Care Document ---
Author Organization [facility] Address [address] [place] [address] Phone Care Team Providers Care Screener Operator Name Role Phone Riley Hunter MD Primary Care Provider [phone] Encounters Date Type Department Care Team Description 12/28/2024 Refill [facility] [address] [place] [address] Riley Hunter MD Medication Refill 10/27/2024 Telephone SEP [address] 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 Please advise.) 09/14/2024 Results Follow-Up [facility] [address] [place] [address] Mimi Alicea, ADOLFO FIGUEROA 09/14/2024 Patient Outreach [facility] [address] [place] [address] Riley Hunter MD Results (oguajared ) 09/10/2024 Patient Outreach [facility] [address] [place] [address] Barbara Darling, ADOLFO CM- Telephonic Outreach; Care Transition; CM-Resource Coordination 09/09/2024 Patient Outreach [address] [place] [address] Barbara Darling, ADOLFO CM- Telephonic Outreach; Care Transition; CM-Resource Coordination 09/08/2024 Patient Outreach [address] [place] [address] Barbara Darling, RN CM- Telephonic Outreach; Care Transition; CM- In office handoff; CM-Resource Coordination 09/08/[address] [place] [address] Riley Hunter MD Orders (Portable O2 and Walker); Follow Up (fu on order for O2) 09/02/2024 1:40 PM EDT Office Visit [address] [place] [address] Riley Hunter MD Chronic respiratory failure with hypoxia (HCC) (Primary Dx); Osteoarthritis of both knees, unspecified osteoarthritis type; Emphysema with chronic bronchitis (HCC); Gait abnormality; History of falling; Tremors of nervous system; Colon cancer screening; Essential tremor 07/29/[address] [place] [address] Jennifer Onofre, DO Medication Refill 07/29/[address] [place] [address] Riley Hunter MD Medication Refill 07/09/2024 Results Follow-Up [address] [place] [address] Riley Hunter MD MRI FOOT RIGHT W WO CONTRAST 07/09/2024 Orders Only [address] [place] [address] Riley Hunter MD Ganglion cyst of right foot (Primary Dx) 07/09/2024 Telephone [facility] Pod[facility]ry [address] [place] [address] Sunshine Garcia MA Other 07/08/2024 Orders Only [facility] [address] [place] [address] Gil Kemp, DPM Right foot pain (Primary Dx); Ganglion cyst of right foot 07/08/2024 8:30 AM EDT Office Visit [facility] [address] [place] [address] Gil Kemp, DPM Right foot pain (Primary Dx); Ganglion cyst of right foot 07/03/2024 12:01 PM EDT - 07/03/2024 11:59 PM EDT Hospital Encounter [facility] [address] [place] [address] Riley Hunter MD Subcutaneous nodule of foot Discharge Disposition: Home or Self Care 06/01/2024 1:20 PM EDT Office Visit [facility] [address] [place] [address] Riley Hunter MD Medicare annual wellness visit, subsequent (Primary Dx); Colon cancer screening; Anemia, unspecified type; Hyponatremia; Prostate cancer screening; Vitamin D deficiency; Subcutaneous nodule of foot; S/P colon resection; Mild episode of recurrent major depressive disorder; Lung nodule; Living will, counseling/discussion ; History of colon polyps; Hepatitis C antibody test positive; Gastroesophageal reflux disease without esophagitis; Full code status; Failed total left knee replacement, subsequent encounter; Essential tremor; Emphysema with chronic bronchitis (HCC); Dyslipidemia; History of bladder cancer; Abnormal liver CT; B12 deficiency; Bilateral carotid artery stenosis 05/23/2024 Refill [facility]P [address] [place] [address] Riley Hunter MD Medication Refill 05/19/[address] [place] [address] Riley Hunter MD Refill (multiple) 03/25/2024 9:30 AM EST Clinical Support [address] [place] [address] Barbara Darling, RN Encounter for support and coordination of transition of care (Primary Dx) 03/25/2024 9:00 AM EST Office Visit SE[facility] [address] [place] [address] Diane Ochoa APRN SBO (small bowel obstruction) (HCC) (Primary Dx); Gross hematuria; Lung nodule; Bladder mass 03/17/[address] [place] [address] Riley Hunter MD 911/Red Flag (Informed to go to ER ) 03/04/2024 Orders Only [address] [place] [address] Riley Hunter MD Emphysema with chronic bronchitis (HCC) (Primary Dx) 02/27/2024 Patient Outreach [facility] [address] [place] [address] Asha Sahni, [facility] Medication Management (Clinical Concrete Laborer: communications associate [phone]/) 02/22/[address] [place] [address] Riley Hunter MD Medication Refill 02/07/2024 2:46 PM EST - 02/07/2024 11:59 PM [facility] Hospital Encounter [facility] [place] [address] Jose Pruitt MD Concussion with unknown loss of consciousness status, initial encounter Discharge Disposition: Home or Self Care 02/07/2024 11:20 AM EST Office Visit [facility] [address] [place] [address] Fazal Craig MD Bilateral carotid artery stenosis (Primary Dx); History of DVT (deep vein thrombosis); Lung nodule; Concussion with loss of consciousness, sequela; Chronic post-traumatic headache, not intractable 02/06/2024 Refill SEP [address] [place] [address] Riley Hunter MD Medication Refill 02/03/2024 1:45 PM EST Office Visit [address] [place] [address] Jose Pruitt MD Concussion with unknown loss of consciousness status, initial encounter (Primary Dx); Lesion of right ear 01/27/[address] [place] [address] Riley Hunter MD Schedule Appointment (Returning call) 01/22/[address] [place] [address] BuckholtsCherry neal, COW PUNCHER Results 01/21/2024 Orders Only [address] [place] [address] PhuongMedardoCherry, COW PUNCHER Bilateral carotid artery disease, unspecified type (Primary Dx) 01/17/2024 2:08 PM EDT - 01/17/2024 11:59 PM EDT Hospital Encounter [facility] [address] [place] [address] Phuong, Cherry, COW PUNCHER Atherosclerosis of both carotid arteries Discharge Disposition: Home or Self Care 01/08/2024 3:00 PM EDT Office Visit [address] [place] [address] Riley Hunter MD Hematoma of scalp, initial encounter (Primary Dx); Emphysema with chronic bronchitis (HCC); Atherosclerosis of both carotid arteries 01/03/2024 Orders Only [address] [place] [address] Phuong, Cherry, COW PUNCHER Atherosclerosis of both carotid arteries (Primary Dx) 01/03/2024 2:02 PM EDT - 01/03/2024 11:59 PM EDT Hospital Encounter [facility] [address] [place] [address] Phuong, Cherry, COW PUNCHER Lymphadenopathy Discharge Disposition: Home or Self Care 01/03/2024 2:02 PM EDT - 01/03/2024 11:59 PM EDT Hospital Encounter [facility] [address], [place] [address] Riley Hunter MD Lung nodule Discharge Disposition: Home or Self Care 12/05/2023 Refill SEP [address] [place] [address] Riley Hunter MD Medication Refill 11/23/2023 Refill SEP [address] [place] [address] Riley Hunter MD Medication Refill 10/22/2023 Telephone SEP [facility] [address] [place] [address] Elisa Ford MD Cirrhosis 10/22/2023 Telephone SEP [address] [place] [address] Riley Hunter MD Results 10/17/2023 Orders Only [address] [place] [address] Riley Hunter MD Abnormal liver CT (Primary Dx) 10/17/2023 1:40 PM EDT Office Visit [address] [place] [address] Riley Hunter MD Partial nodular transformation of liver (Primary Dx); Other specified inflammatory liver diseases; COPD with acute exacerbation (HCC); Hypoxemia; Tobacco abuse 10/10/2023 9:14 AM EDT - 10/10/2023 11:59 PM EDT Hospital Encounter [facility] [address] [place] [address] Riley Hunter MD Abnormal liver CT Discharge Disposition: Home or Self Care 10/09/2023 4:15 PM EDT Office Visit [address] [place] [address] Cherry Baca APRN COPD with acute exacerbation (HCC) (Primary Dx); Lung nodule; Lymphadenopathy; Tobacco abuse 10/09/[address] [place] [address] Riley Hunter MD Appointment Needed (Neck is painful, shoulders are swelling, x 2 day.) 10/08/[address] [place] [address] Riley Hunter MD Results (CT/Xray results given) 10/08/[address] [place] [address] Riley Hunter MD Appointment Needed (Acute appt needed- asking to be worked in today - please call) 09/30/2023 Orders Only [address] [place] [address] Riley Hunter MD Abnormal liver CT (Primary Dx) 09/27/2023 10:02 AM EDT - 09/27/2023 11:59 PM EDT Hospital Encounter [facility] [address] [place] [address] Riley Hunter MD Gross hematuria Discharge Disposition: Home or Self Care 09/24/[address] [place] [address] Riley Hunter MD Results 09/20/[address] [place] [address] Riley Hunter MD Medication Management (Wegovy ) 09/16/2023 12:58 PM EDT - 09/16/2023 11:59 PM EDT Hospital Encounter [facility] [address] [place] [address] Chronic pain of right knee Discharge Disposition: Home or Self Care 09/12/2023 1:40 PM EDT Office Visit [address] [place] [address] Riley Hunter MD Gross hematuria (Primary Dx); Colon cancer screening; History of colon polyps; Tobacco abuse; Chronic pain of right knee; Effusion of right knee; Obesity, unspecified classification, unspecified obesity type, unspecified whether serious comorbidity present 07/24/[address] [place] [address] Barbara Higuera MD Medication Refill 07/13/[address] [place] [address] Riley Hunter MD Medication Refill 06/19/[address] [place] [address] Riley Hunter MD Medication Refill 05/27/[address] [place] [address] Riley Hunter MD Medication Refill 05/16/[address] [place] [address] Barbara Higuera MD Medication Refill 05/12/[address] [place] [address] Barbara Higuera MD Medication Refill 05/03/2023 Orders Only [address] [place] [address] Mabel James MA Dyslipidemia (Primary Dx) 04/29/2023 Orders Only [address] [place] [address] Riley Hunter MD Anemia, unspecified type (Primary Dx) 04/29/2023 10:40 AM EST Office Visit [address] [place] [address] Riley Hunter MD Medicare annual wellness visit, subsequent (Primary Dx); Emphysema with chronic bronchitis (HCC); Vitamin D deficiency; Gastroesophageal reflux disease without esophagitis; B12 deficiency; Dyslipidemia; Essential tremor; Failed total left knee replacement, subsequent encounter; Full code status; History of colon polyps; Lung nodule; S/P colon resection; Mild episode of recurrent major depressive disorder; History of DVT (deep vein thrombosis); Colon cancer screening; Tobacco abuse; Anemia, unspecified type 04/26/2023 Patient Outreach [facility] [address] [facility] [address] [place] [address] Barbara Higuera MD Central Patient Navigator Outreach (AWV questionnaire /) 04/18/2023 Refill SEP [address] [place] [address] Barbara Higuera MD Medication Refill 04/18/2023 Orders Only [address] [place] [address] Mabel James MA Emphysema with chronic bronchitis (HCC); Tremors of nervous system 04/05/[address] [place] [address] Barbara Higuera MD Medication Refill (2 meds) 02/28/2023 Refill SEP [address] [place] [address] Barbara Higuera MD Medication Refill 02/26/2023 Patient Outreach [place] [address] [place] [address] Sandra Maddox CPhT Medication Management (Clinical Concrete Laborer: communications associate [phone] ) 01/23/2023 Telephone [facility]P Pulmonology [facility] [address] [place] [address] Hugo Toledo MD Other (Lung nodule. Emphysema with chronic bronchitis. SOB. Please see note placed in referral by Elizabeth Figueredo RN Management of lung nodule, emphysema and SOB. Please call patient to schedule Pulm appointment./) 01/23/2023 Telephone [facility] [place] [address] Riley Desai MD Patient Question (Patient asking if he should keep his appointment for today with Dr. Desai?) 01/23/2023 12:29 PM EST - 01/23/2023 11:59 PM EST Hospital Encounter [facility] [address] [place] [address] Riley Desai MD Emphysema with chronic bronchitis (HCC) (Primary Dx); Lung nodule; SOB (shortness of breath) Discharge Disposition: Home or Self Care 01/23/2023 9:42 AM EST - 01/23/2023 12:28 PM EST [facility] [address] [place] [address] Lung nodule Discharge Disposition: Home or Self Care 01/22/2023 Patient Outreach [facility] [address] [place] [address] Darby [place], LakeishaD Comprehensive Medication Review (COA) 01/21/2023 Patient Outreach [facility] [address] [place], [place] [id number] Sandra Maddox CPhT Medication Management (Clinical Concrete Laborer: communications associate [phone] ) 12/13/2022 9:20 AM EDT - 12/13/2022 11:59 PM EDT Hospital Encounter [facility] [address] [place] [address] Riley Desai MD Lung nodule (Primary Dx); Tobacco use Discharge Disposition: Home or Self Care 12/12/2022 Telephone [facility] [address] [place] [address] Joel Yee, LOGISTICS CENTER MANAGER Confirmation 12/07/2022 Telephone [facility] [place] [address] Jv Sagastume MD Information Only (Confirmed appointment) 12/06/2022 Telephone [facility] [place] [address] Jv Sagastume MD Information Only 11/27/2022 Telephone [facility] [address] [place] [address] Hilary Irene, RN Schedule Appointment 11/24/[address] [place] [address] Barbara Higuera MD Medication Refill 11/24/2022 Refill SEP [address] [place] [address] Riley Hunter MD Medication Refill 11/23/2022 Orders Only [address] [place] [address] Barbara Higuera MD Lung nodule (Primary Dx) 11/23/2022 Orders Only [facility] ATTN: Appointments in this department are performed at various locations in the community on our Cardiovascular mobile health unit. You can look online to verify your site or call [phone] [address] Sonam Graham, ADOLFO 11/22/2022 4:17 PM EDT - 11/22/2022 11:59 PM EDT Hospital Encounter [address] [place] [address] Barbara Higuera MD Encounter for screening for lung cancer; History of tobacco use Discharge Disposition: Home or Self Care 11/20/2022 Patient Outreach [facility] [address] [place] [address] Barbara Higuera MD Central Order Completion Outreach (ldct/) 10/24/[address] [place] [address] Barbara Higuera MD Medication Refill 09/12/[address] [place] [address] Barbara Higuera MD Medication Refill 08/06/2022 Orders Only [address] [place] [address] Sadie Arenas RMA 08/06/[address] [place] [address] Barbara Higuera MD Medication Refill (Cholesterol Meds/ ) 07/18/2022 Refill SEP [address] [place] [address] Barbara Higuera MD Medication Refill 07/01/2022 Refill SEP [address] [place] [address] Barbara Higuera MD Medication Refill 05/21/2022 Patient Outreach [facility] [address] [place] [address] Barbara Higuera MD Central Care Gap Outreach (Colon Screen) 04/13/2022 Refill SEP [address] [place] [address] Barbara Higuera MD Medication Refill 04/03/2022 Telephone [facility] [place] [id number] Derrick Savage MD Results 02/22/2022 Travel 02/22/2022 12:20 PM EST - 02/22/2022 11:59 PM EST Hospital Encounter [facility] [address] [place] [address] Derrick Savage MD Chest pain, unspecified type; SOB (shortness of breath); Smoker Discharge Disposition: Home or Self Care 02/22/2022 11:30 AM EST - 02/22/2022 11:33 AM EST Hospital Encounter [facility] [address] [place] [address] Derrick Savage MD Chest pain, unspecified type; SOB (shortness of breath); Smoker Discharge Disposition: Home or Self Care 02/22/2022 11:34 AM EST - 02/22/2022 12:19 PM EST Hospital Encounter [facility] [address] [place] [address] Derrick Savage MD Chest pain, unspecified type; SOB (shortness of breath); Smoker Discharge Disposition: Home or Self Care 01/08/[address] [place] [address] Barbara Higuera MD Medication Refill 01/08/[address] [place] [address] Riley Hunter MD Medication Refill 01/03/2022 Travel 01/03/2022 1:30 PM EDT Office Visit [facility] [employer] [address] [address] Derrick Savage MD Chest pain, unspecified type (Primary Dx); SOB (shortness of breath); Smoker 12/18/[address] [place] [address] Barbara Higuera MD Results (Labs ) 12/11/2021 3:00 PM EDT Office Visit [address] [place] [address] Riley Hunter MD Medicare annual wellness visit, subsequent (Primary Dx); Chest pain at rest; Mild episode of recurrent major depressive disorder; Chronic deep vein thrombosis (DVT) of other vein of right lower extremity (HCC); Anemia, unspecified type; Dyslipidemia; Colon cancer screening; Prostate cancer screening; Plantar fasciitis; Low vitamin B12 level; Vitamin D deficiency; Failed total left knee replacement, subsequent encounter; Emphysema with chronic bronchitis (HCC); S/P colon resection; Gastroesophageal reflux disease without esophagitis; History of colon polyps; Full code status; Living will, counseling/discussion ; Essential tremor; Tobacco abuse; Chronic deep vein thrombosis (DVT) of other vein of right lower extremity (HCC) 12/06/2021 1:13 PM EDT - 12/06/2021 11:59 PM EDT Hospital Encounter [facility] [address] [place] [address] Acute cough Discharge Disposition: Home or Self Care 12/06/2021 11:30 AM EDT Office Visit [address] [place] [address] Jennifer Onofre DO Acute cough (Primary Dx) 12/06/[address] [place] [address] Barbara Higuera MD Appointment Needed (cough, fever, wheezing, & sweating ) 11/28/2021 Patient Outreach [place] [address] [place] [address] Barbara Higuera MD Central Order Completion Outreach (LDCT) 10/17/[address] [place] [address] Barbara Higuera MD Medication Refill 09/29/2021 Patient Outreach [place] [address] [place] [address] Barbara Higuera MD Central Order Completion Outreach (LDCT) 09/29/[address] [place] [address] Barbara Higuera MD Medication Refill 09/25/[address] [place] [address] Barbara Higuera MD Medication Refill 06/16/2021 2:00 PM EDT Office Visit [address] [place] [address] Jose Pruitt MD COPD exacerbation (HCC) (Primary Dx); Fever, unspecified fever cause 06/16/[address] [place] [address] Barbara Higuera MD Appointment Needed (fever, head congestion, 2 days) 05/15/[address] [place] [address] Barbara Higuera MD Medication Refill 05/02/[address] [place] [address] Barbara Higuera MD Paperwork/forms (letter for social security card ) 03/10/[address] [place] [address] Barbara Higuera MD Medication Refill 03/09/[address] [place] [address] Barbara Higuera MD Medication Refill 02/08/[address] [place] [address] Barbara Higuera MD Medication Refill 12/30/2020 Travel 12/30/2020 8:16 AM EDT - 12/30/2020 11:59 PM EDT Hospital Encounter [facility] [address] [place] [address] Riley Hunter MD Screening for AAA (abdominal aortic aneurysm) Discharge Disposition: Home or Self Care 12/22/2020 Orders Only [address] [place] [address] Jose Pruitt MD Screening for malignant neoplasm of respiratory organ (Primary Dx); Personal history of tobacco use, presenting hazards to health 12/22/2020 Travel 12/22/2020 1:48 PM EDT - 12/22/2020 11:59 PM EDT Hospital Encounter [facility] [address] [place] [address] Jose Pruitt MD Personal history of tobacco use Discharge Disposition: Home or Self Care 12/20/[address] [place] [address] Barbara Higuera MD Medication Refill 12/08/[address] [place] [address] Barbara Higuera MD Medication Refill 11/28/[address] [place] [address] Barbara Higuera MD Medication Refill 11/17/2020 Travel 11/17/2020 4:20 PM EDT Office Visit [address] [place] [address] Riley Hunter MD Acute bronchitis, unspecified organism (Primary Dx); Acute pain of left shoulder; Olecranon bursitis of right elbow 11/16/[address] [place] [address] Barbara Higuera MD Appointment Needed ( knot on elbow/cant raise arm x 1 mo runny nose/sneezing x 2 days) 09/26/[address] [place] [address] Barbara Higuera MD Medication Refill 09/21/[address] [place] [address] Barbara Higuera MD Medication Refill 09/08/2020 Travel 09/08/2020 10:20 AM EDT Office Visit [address] [place] [address] Riley Hunter MD Medicare annual wellness visit, subsequent (Primary Dx); Colon cancer screening; Need for pneumococcal vaccination; Screening for AAA (abdominal aortic aneurysm); Need for shingles vaccine; Encounter for screening for lung cancer; Hepatitis C antibody test positive; Failed total left knee replacement, subsequent encounter; Chronic deep vein thrombosis (DVT) of other vein of right lower extremity (HCC); Emphysema with chronic bronchitis (HCC); history of appendix carcinoma; Mild episode of recurrent major depressive disorder; S/P colon resection; Vitamin D deficiency; History of colon polyps; Gastroesophageal reflux disease without esophagitis; Full code status; Living will, counseling/discussion ; Low vitamin B12 level; Essential tremor; Dyslipidemia 09/04/2020 Refill [facility] [address] [place] [address] Amanda Veronica APRN Medication Refill 08/04/2020 Refill SEP [address] [place] [address] Barbara Higuera MD Medication Refill (flexril 10 mg ) 08/02/[address] [place] [address] Barbara Higuera MD Medication Refill 08/02/[address] [place] [address] Amanda Veronica, ALFREDO Medication Refill 07/21/[address] [place] [address] Barbara Higuera MD Paperwork/forms (mail order RX paperwork) 06/06/[address] [place] [address] Barbara Higuera MD Paperwork/forms ([employer] mail order ) 05/07/[address] [place] [address] Barbara Higuera MD Medication Refill 05/07/[address] [place] [address] Amanda Veronica APRN Medication Refill 04/23/[address] [place] [address] Barbara Higuera MD Medication Refill 04/21/2020 Travel 04/18/2020 3:30 PM EST Office Visit [address] [place] [address] Amanda Veronica APRN Skin lesion of face (Primary Dx); Emphysema with chronic bronchitis (HCC); Mild episode of recurrent major depressive disorder; Appendix carcinoma (HCC); Chronic deep vein thrombosis (DVT) of other vein of right lower extremity (HCC); History of colon polyps; Emphysema with chronic bronchitis (HCC) 04/18/2020 Travel 03/22/[address] [place] [address] Barbara Higuera MD Medication Refill (citalopram (CELEXA) 20 mg Oral Tablet ) 03/01/[address] [place] [address] Amanda Veronica APRN Medication Refill 02/02/[address] [place] [address] Barbara Higuera MD Medication Refill 01/15/2020 10:00 AM EDT Clinical Support [address] [place] [address] Trudy Becerril Needs flu shot (Primary Dx); Normocytic anemia 12/30/[address] [place] [address] Barbara Higuera MD Results 12/24/2019 Orders Only [address] [place] [address] Jose Pruitt MD Personal history of tobacco use 12/23/2019 Travel 12/23/2019 3:48 PM EDT - 12/23/2019 11:59 PM EDT Hospital Encounter [facility] [address] [place] [address] Jose Pruitt MD Encounter for screening for malignant neoplasm of respiratory organs; Smoking greater than 30 pack years Discharge Disposition: Home or Self Care 12/18/2019 Travel 12/16/2019 Orders Only [address] [place] [address] Cherry Baca APRN Normocytic anemia (Primary Dx) 12/15/2019 Travel 12/15/2019 1:40 PM EDT Office Visit [address] [place] [address] Cherry Baca APRN Encounter for Medicare annual wellness exam (Primary Dx); Need for shingles vaccine; Needs flu shot; Vitamin D deficiency; B12 deficiency; S/P colon resection; BMI 26.0-26.9,adult; Screening for prostate cancer; Emphysema with chronic bronchitis (HCC); Pulmonary emphysema, unspecified emphysema type (HCC); COPD with acute exacerbation (HCC); Failed total left knee replacement, subsequent encounter; Chronic deep vein thrombosis (DVT) of other vein of right lower extremity (HCC); Effusion, left elbow; Encounter for smoking cessation counseling; Hyperlipidemia with target LDL less than 100; Living will, counseling/discussion 12/14/2019 Travel 12/14/[address] [place] [address] Barbara Higuera MD Medication Refill 10/29/2019 4:40 PM EDT Office Visit [address] [place] [address] Riley Hunter MD Venous stasis (Primary Dx) 10/29/2019 Travel 10/14/[address] [place] [address] Barbara Higuera MD Medication Refill 09/18/[address] [place] [address] Amanda Veronica APRN Medication Refill 09/09/[address] [place] [address] Barbara Higuera MD Medication Management (Chantix) 09/01/2019 2:00 PM EDT Office Visit [address] [place] [address] Tino Pruitt MD Impacted cerumen of left ear (Primary Dx); Mild episode of recurrent major depressive disorder; Appendix carcinoma (HCC); ED (erectile dysfunction) of non-organic origin 09/01/2019 Travel 08/06/2019 Travel 08/06/2019 11:54 AM EDT - 08/06/2019 11:59 PM EDT Hospital Encounter [address] 34 [facility] [place] [address] Arelis Mike A., PT CHT Discharge Disposition: Home or Self Care 07/23/2019 Refill [facility] [address] [place], [place] [address] Barbara Higuera MD Medication Refill (2 refills ) 07/20/2019 Travel 07/20/2019 2:50 PM EDT - 07/20/2019 11:59 PM EDT Hospital Encounter [address] 34 [facility] [place] [address] Arelis Mike A., PT CHT Discharge Disposition: Home or Self Care 07/17/2019 Refill [facility] [address] [place], [place] [address] Riley Hunter MD Medication Refill 07/10/2019 Travel 06/07/2019 Refill [facility] [place] [address] [place] [address] Amanda Veronica APRN Medication Refill 06/03/[address] [place] [address] Arelis Mike A., PT CHT Cancellation (rs to next week ) 06/03/2019 Travel 05/26/2019 Travel 05/26/2019 11:20 AM EDT - 05/26/2019 11:59 PM EDT Hospital Encounter [address] 34 [place] [address] Kristin Lerner, PT CHT Discharge Disposition: Home or Self Care 05/20/2019 12:00 PM EST - 05/20/2019 11:59 PM EST Hospital Encounter [facility] [place] [address] [facility] 34 [facility] [place] [address] Arelis Mike., PT CHT Discharge Disposition: Home or Self Care 05/07/2019 Travel 05/06/2019 Travel 05/06/2019 10:00 AM EST - 05/06/2019 11:59 PM EST Hospital Encounter [facility] [place] [address] [facility] 34 [facility]17 Arelis Mike A., PT CHT Discharge Disposition: Home or Self Care 05/05/2019 Travel 04/29/2019 Telephone [facility] [place] [id number] [facility] 34 [facility]17 Gurvinder Bowen MD Other (called gilberto at Dr Bowen office to let her know he cancelled 04/29 and unable to get back in till 05/06 due to certain times he can come) 04/21/2019 1:45 PM EST Anesthesia Event [facility] [place] [facility]17 Emely Taveras MD 04/21/2019 1:30 PM EST - 04/21/2019 3:10 PM EST Surgery [facility] [address] [place] [facility]17 Gurvinder Bowen MD WRIST PROXIMAL ROW CARPECTOMY 04/21/2019 Travel 04/21/2019 10:28 AM EST - 04/21/2019 4:36 PM EST Hospital Encounter [facility] SAME DAY SURGERY [facility] Dr[facility] [place] [facility]17 Gurvinder Bowen MD Discharge Disposition: Discharge/Readmit 04/22/2019 8:15 AM EST Anesthesia Event [facility] [address] [place] [address] Colton Wooten MD Oliver, Richard G, MD 04/20/2019 Travel 04/16/2019 Refill [facility] [place] [address] [place] [address] Riley Hunter MD Medication Refill 04/07/2019 2:20 PM EST Office Visit [facility] [place] [address] [place] [address] Jose Pruitt MD Tear of right scapholunate ligament, initial encounter (Primary Dx); Pre-op examination; Emphysema with chronic bronchitis (HCC); Gastroesophageal reflux disease without esophagitis; Cigarette nicotine dependence with withdrawal; Chronic deep vein thrombosis (DVT) of other vein of right lower extremity (HCC) 03/25/2019 Refill [facility] [address] [place] [address] Barbara Higuera MD Medication Refill (propranolol (INDERAL) 10 mg Oral Tablet) 03/09/[address] [place] [address] Amanda Veronica, ALFREDO Medication Refill 02/25/2019 Refill [facility] [address] [place] [address] Amanda Veronica, ALFREDO Medication Refill 02/23/2019 10:40 AM EST Office Visit [address] [place] [address] Jose Pruitt MD Encounter for Medicare annual wellness exam (Primary Dx); Encounter for screening for malignant neoplasm of respiratory organs; Smoking greater than 30 pack years; Flu vaccine need; Screening for colon cancer; Need for pneumococcal vaccination; Mild episode of recurrent major depressive disorder; Chronic obstructive pulmonary disease, unspecified COPD type (HCC); Blood typing encounter; Chronic deep vein thrombosis (DVT) of other vein of right lower extremity (HCC); Scapho-lunate dissociation, right; Cigarette nicotine dependence with withdrawal; Left ear impacted cerumen 12/15/2018 Refill [facility] [address] [place] [address] Barbara Higuera MD Medication Refill 12/15/2018 Refill [facility] [address] [place] [address] Amanda Veronica APRN Medication Refill 11/20/[address] [place] [address] Barbara Higuera MD Visit Follow Up 10/30/[address] [place] [address] Riley Hunter MD Medication Refill 09/14/2018 Refill [facility] [address] [place] [address] Amanda Veronica, COW PUNCHER Medication Refill 09/08/[address] [place] [address] Amanda Veronica, COW PUNCHER Medication Refill 08/07/2018 Orders Only [facility] [address] [place] [address] Barbara Higuera MD Screening for colon cancer; Screening for cancer of the rectum 07/07/[address] [place] [address] Barbara Higuera MD Medication Refill 06/19/2018 2:34 PM EDT - 06/19/2018 11:59 PM EDT Hospital Encounter [facility] [address] [place] [address] Riley Hunter MD Right foot pain Discharge Disposition: Home or Self Care 06/19/2018 1:40 PM EDT Office Visit [address] [place] [address] Riley Hunter MD Right foot pain (Primary Dx) 06/11/[address] [place] [address] Barbara Higuera MD Medication Refill 04/28/2018 Refill [facility] [address] [place] [address] Riley Hunter MD Medication Refill 01/26/2018 Refill [facility] [address] [place] [address] Amanda Veronica, COW PUNCHER Medication Refill 01/11/2018 Refill [facility] [address] [place] [address] Barbara Higuera MD Medication Refill 12/16/[address] [place] [address] Barbara Higuera MD Medication Refill 12/12/2017 Orders Only [address] [place], [place] [address] Diane Jackson, [facility] Chronic deep vein thrombosis (DVT) of other vein of right lower extremity (HCC) 11/29/[address] [place] [address] Amanda Veronica, COW PUNCHER Medication Refill 10/31/[address] [place] [address] Amanda Veronica, COW PUNCHER Medication Refill 10/03/[address] [place] [address] Riley Hunter MD Medication Refill 09/12/[address] [place] [address] Barbara Higuera MD Medication Refill 08/30/[address] [place] [address] Amanda Veronica, COW PUNCHER Medication Refill 08/29/[address] [place] [address] Amanda Veronica, COW PUNCHER Medication Refill 08/21/2017 4:00 PM EDT - 08/21/2017 11:59 PM EDT Hospital Encounter [facility] [address] [place] [address] Grace Cormier MD Neck pain Discharge Disposition: Home or Self Care 08/21/2017 3:52 PM EDT - 08/21/2017 3:59 PM EDT Hospital Encounter [facility] [address] [place] [address] Grace Cormier MD Neck pain Discharge Disposition: Home or Self Care 07/26/2017 Telephone [facility] [place] [address] [place] [address] Barbara Higuera MD Visit Follow Up 07/19/2017 10:56 AM EDT - 07/19/2017 11:59 PM EDT Hospital Encounter [facility] [address] [place] [address] Neck pain Discharge Disposition: Home or Self Care 07/18/2017 2:40 PM EDT Office Visit [facility] [place] [address] [place] [address] Riley Hunter MD Neck pain (Primary Dx) 07/10/2017 Telephone [facility] [place] [address] [address] [place] [address] Barbara Higuera MD Visit Follow Up 07/03/2017 3:36 PM EDT - 07/03/2017 11:59 PM EDT Hospital Encounter [facility] [address] [place] [address] Barbara Higuera MD Right hand pain Discharge Disposition: Home or Self Care 06/27/2017 Telephone [place] [place] [address] [address] [place] [address] Barbara Higuera MD Orders 06/21/2017 Telephone [facility] [place] [address] [address] [place] [address] Barbara Higuera MD Visit Follow Up 06/21/2017 11:55 AM EDT - 06/21/2017 11:59 PM EDT Hospital Encounter [facility] [address] [place] [address] Barbara Higuera MD History of joint pain Discharge Disposition: Home or Self Care 06/19/2017 8:20 AM EDT Clinical Support [address] [place] [address] Trudy Becerril Hepatitis C antibody test positive; Visit for [facility] health check; B12 deficiency; Screening for diabetes mellitus (DM); Screening for cholesterol level; Screening for prostate cancer; Screening for thyroid disorder; Vitamin D deficiency; History of joint pain 06/17/2017 11:10 AM EDT Office Visit [address] [place] [address] Barbara Higuera MD Visit for [facility] health check (Primary Dx); B12 deficiency; history of appendix carcinoma; History of colon polyps; S/P colon resection; Vitamin D deficiency; Chronic obstructive pulmonary disease, unspecified COPD type (HCC); History of DVT (deep vein thrombosis); Gastroesophageal reflux disease, esophagitis presence not specified; Mild episode of recurrent major depressive disorder; History of joint pain; Hepatitis C antibody test positive; Tremors of nervous system; Impacted cerumen of left ear; Trapezius muscle strain, left, initial encounter; Cigarette nicotine dependence without complication; Screening for diabetes mellitus (DM); Screening for cholesterol level; Screening for prostate cancer; Screening for thyroid disorder 06/04/[address] [place] [address] Amanda Veronica, ALFREDO Medication Refill 02/26/[address] [place] [address] Amanda Veronica, COW PUNCHER Medication Refill 02/17/[address] [place] [address] Amanda Veronica, COW PUNCHER Medication Refill 02/12/[address] [place] [address] Amanda Veronica, COW PUNCHER Medication Refill 11/11/[address] [place] [address] Amanda Veronica, COW PUNCHER Medication Refill 11/07/[address] [place] [address] Amanda Veronica, COW PUNCHER Medication Refill 07/11/[address] [place] [address] Amanda Veronica, COW PUNCHER Medication Refill 07/03/2016 10:00 AM EDT Office Visit [address] [place] [address] Amanda Veronica, COW PUNCHER Chronic deep vein thrombosis (DVT) of other vein of right lower extremity (HCC) (Primary Dx); Gastroesophageal reflux disease without esophagitis; Depression, unspecified depression type; Tremors of nervous system; S/P colon resection; Arthralgia, unspecified joint; Chronic bronchitis, unspecified chronic bronchitis type (HCC); Emphysema with chronic bronchitis (HCC) 06/27/[address] [place] [address] Amanda Veronica, COW PUNCHER Medication Refill 06/13/2016 10:00 AM EDT Office Visit [address] [place] [address] Amanda Veronica, ALFREDO Tremors of nervous system (Primary Dx) 05/15/[address] [place] [address] Amanda Veronica, COW PUNCHER Medication Refill 03/19/2016 1:40 PM EST Office Visit [address] [place] [address] Amanda Veronica, COW PUNCHER Chronic deep vein thrombosis (DVT) of other vein of right lower extremity (HCC) (Primary Dx); Chronic bronchitis, unspecified chronic bronchitis type (HCC); Depression, unspecified depression type; Vitamin D deficiency 02/15/2016 10:00 AM EST Office Visit [address] [place] [address] Amanda Veronica APRN Depression, unspecified depression type (Primary Dx); Mucopurulent chronic bronchitis (HCC); Gastroesophageal reflux disease without esophagitis; Nausea and vomiting, intractability of vomiting not specified, unspecified vomiting type; Diarrhea in adult patient 01/11/2016 Telephone [place] [address] [place] [address] Amanda Veronica APRN Visit Follow Up 01/10/2016 4:43 PM EDT - 01/10/2016 11:59 PM EDT Hospital Encounter [facility] [place] [address] Vitamin D deficiency Discharge Disposition: Home or Self Care 01/10/2016 10:00 AM EDT Office Visit [place] [address] [place] [address] Amanda Veronica APRN Acute bronchitis, unspecified organism (Primary Dx); COPD with acute exacerbation (HCC); Vitamin D deficiency; Screening for colon cancer; Need for influenza vaccination 10/14/2015 Telephone [place] [address] [place] [address] Amanda Veronica APRN Visit Follow Up 10/05/[address] [place] [address] Amanda Veronica APRN Visit Follow Up 10/04/2015 4:33 PM EDT - 10/04/2015 11:59 PM EDT Hospital Encounter [facility] [place] [address] Vitamin D deficiency Discharge Disposition: Home or Self Care 10/04/2015 Telephone [place] [address] [place] [address] Amanda Veronica APRN Other 10/04/2015 9:40 AM EDT Office Visit [place] [address] [place] [address] Amanda Veronica APRN Emphysema with chronic bronchitis (HCC) (Primary Dx); Chronic bronchitis, unspecified chronic bronchitis type (HCC); Vitamin D deficiency; Hepatitis C antibody test positive; Healthcare maintenance 08/31/2015 Orders Only [place] [address] [place] [address] Amanda Veronica APRN Vitamin D deficiency (Primary Dx) 08/29/2015 4:43 PM EDT - 08/29/2015 11:59 PM EDT Hospital Encounter [facility] [place] [address] Vitamin D deficiency Discharge Disposition: Home or Self Care 08/29/2015 3:20 PM EDT Office Visit [facility] [place] [address] [address] [place] [address] Amanda Veronica APRN Emphysema with chronic bronchitis (HCC) (Primary Dx); Pulmonary emphysema, unspecified emphysema type (HCC); COPD with acute exacerbation (HCC) 07/21/2015 Refill [place] [address] [place] [address] Amanda Veronica APRN Medication Refill 06/06/2015 Orders Only [place] [address] [address] [place] [address] Barbara Higuera MD Exposure to the flu (Primary Dx) 05/25/[address] [address] Ryan Villarreal, Results 05/10/2015 1:35 PM EST - 05/10/2015 11:59 PM EST Hospital Encounter [facility] [address] [place] [address] Hepatitis C antibody test positive Discharge Disposition: Home or Self Care 05/09/[address] [address] Ryan Villarreal DO Lab Orders 05/06/[address] [place] [address] Ryan Villarreal, DO Labs Only 05/04/2015 Orders Only [address] [place] [address] Amanda Veronica APRN Vitamin D deficiency (Primary Dx) 04/21/2015 Orders Only [address] [place] [address] Amanda Veronica APRN Hepatitis C antibody test positive (Primary Dx); Vitamin D deficiency 04/18/2015 8:40 PM EST - 04/18/2015 11:59 PM EST Hospital Encounter [facility] [place] [address] Annual physical exam; Vitamin D deficiency Discharge Disposition: Home or Self Care 04/18/2015 2:40 PM EST Office Visit [address] [place] [address] Amanda Veronica APRN DVT (deep venous thrombosis), unspecified laterality (HCC) (Primary Dx); Pulmonary emphysema, unspecified emphysema type (HCC); Acute bacterial sinusitis; Emphysema with chronic bronchitis (HCC); Nocturia more than twice per night; Annual physical exam; Vitamin D deficiency; Need for influenza vaccination; Failed total left knee replacement, subsequent encounter; Pain in joint, pain in unspecified joint 09/24/2014 Patient Outreach [address] [address] Berenice Benedict, RN Care Management - Chart Review 04/30/2013 11:07 AM EST - 04/30/2013 11:59 PM EST Hospital Encounter [facility] [address] [facility] [place] [address] Ryan Cadena MD Abnormal LFTs Discharge Disposition: Home or Self Care 04/23/2013 8:30 AM EST Office Visit [address] [address] Ryan Cadena MD Emphysema (Primary Dx); DVT (deep venous thrombosis) (HCC); Failed total left knee replacement; Carpal tunnel syndrome of right wrist; Fracture of left foot; S/P colon resection; Colonic mass; B12 deficiency; Vitamin D deficiency; Abnormal LFTs; Right hand pain 04/08/2013 Refill [facility] [address] [place] [address] Yolanda Galvez RMA Medication Refill 04/02/2013 8:54 AM EST - 04/02/2013 11:59 PM EST Hospital Encounter [facility] [address] [place] [address] Wrist pain; Pelvic pain complicating Discharge Disposition: Home or Self Care 04/02/2013 8:50 AM EST - 04/02/2013 8:53 AM EST Hospital Encounter [facility] [address] [place] [address] Routine health maintenance (Primary Dx); Vitamin D deficiency; Emphysema; DVT (deep venous thrombosis) (HCC); Failed total left knee replacement; Carpal tunnel syndrome of right wrist; Fracture of left foot; S/P colon resection; Colonic mass Discharge Disposition: Home or Self Care 04/01/2013 10:00 AM EST Office Visit [facility] [address] [place] [address] Ryan Cadena MD Routine health maintenance (Primary Dx); Colon cancer screening; Vitamin D deficiency; Tobacco abuse; Wrist pain; Sinusitis; COPD (chronic obstructive pulmonary disease) (HCC) 03/25/2013 Orders Only [facility] [address] [place] [address] Yolanda Galvez RMA Colon cancer screening (Primary Dx) 03/16/2013 Telephone [facility] [place] [address] Ryan Cadena MD Other 03/05/2013 10:00 AM EST Office Visit [facility] [place] [address] Ryan Cadena MD Emphysema (Primary Dx); Carpal tunnel syndrome of right wrist; DVT (deep venous thrombosis) (HCC); Failed total left knee replacement; Fracture of left foot; Pelvic pain complicating ; Wrist pain; S/P colon resection; Colonic mass 11/21/2005 12:50 PM EDT - 11/21/2005 11:59 PM EDT Hospital Encounter [facility] SPEC SVC [facility] Uri Pope MD 10/20/2005 10:57 AM EDT - 10/20/2005 11:59 PM EDT Hospital Encounter [facility] RADIOLOGY [facility] Mehran Maddox MD 08/06/2005 4:02 PM EDT - 08/06/2005 11:59 PM EDT Hospital Encounter [facility] Gregg Carr MD 07/16/2005 12:01 AM EDT - 07/16/2005 11:59 PM EDT Hospital Encounter [facility] CARDIOLOGY [facility] Jose MariaHumza guo, DO 05/15/2005 8:43 AM EST - 05/15/2005 11:59 PM EST Hospital Encounter [facility] Ryan Colon MD 03/28/2005 8:45 AM EST - 03/28/2005 11:00 AM EST Hospital Encounter [facility] GC SPEC SVC Ryan Colon MD 03/08/2005 10:09 AM EST - 03/08/2005 11:59 PM EST Hospital Encounter [facility] Humza Graham, DO 02/10/2005 12:18 PM EST - 02/10/2005 11:59 PM EST Hospital Encounter [facility] Humza Graham, DO 01/29/2005 10:33 AM EST - 01/29/2005 11:59 PM EST Hospital Encounter [facility] Mehran Maddox MD 08/08/2004 6:00 AM EDT - 08/08/2004 2:15 PM EDT Hospital Encounter [facility] Generic, Historical Provider 03/22/2004 Hospital Encounter [facility] MED[facility]INE [facility] Generic, Historical Provider 06/07/2000 9:52 PM EST - 06/07/2000 11:59 PM EST Hospital Encounter [facility] Generic, Historical Provider 11/28/1996 7:44 PM EDT - 11/28/1996 11:59 PM EDT Hospital Encounter [facility] EPIC CON [facility] 07/17/1991 1:46 AM EDT - 07/17/1991 11:59 PM EDT Hospital Encounter [facility] EPIC CON UNK [facility] Lina Perry MD 06/17/1991 1:19 AM EST - 06/17/1991 11:59 PM EST Hospital Encounter [facility] EPIC CON [place] Lina Lopez MD 05/28/1991 9:32 AM EST - 05/28/1991 11:59 PM EST Hospital Encounter [facility] EPIC CON Lina Junior MD 05/21/1991 10:15 AM EST - 05/21/1991 11:59 PM EST Hospital Encounter [facility] EPIC CON Lina Junior MD 05/08/1991 1:48 PM EST - 05/08/1991 11:59 PM EST Hospital Encounter [facility] EPIC CON [place] Lina Rodríguez MD 02/09/1991 11:59 AM EST - 02/09/1991 11:59 PM EST Hospital Encounter [facility] EPIC CON [place] Uri Oliva MD 10/05/1989 1:41 PM EDT - 10/05/1989 11:59 PM EDT Hospital Encounter [facility] EP[facility] CON [place] 09/16/1989 10:36 AM EDT - 09/16/1989 11:59 PM EDT Hospital Encounter [facility] EPIC CON [place] Allergies Active Allergy Reactions Criticality Noted Date Comments Morphine Hives High 03/05/2013 Breaks out in hives Medications Oxygen and Equipment MISCELLANEOU 1 Device by MISCELLANEOUS route as needed. Used over a year ago Active cyclobenzaprine (FLEXERIL) 10 mg Oral Tablet TAKE 1 TABLET EVERY 8 HOURS NEEDED FOR MUSCLE SPASM(S) 90 Tablet 024 Active atorvastatin (LIPITOR) 40 mg Oral Tablet Take 1 Tablet by mouth daily. 90 Tablet 025 Active citalopram (CELEXA) 20 mg Oral TabletIndicatio ns:Depression, unspecified depression type Take 1 Tablet by mouth daily. 30 Tablet 11 025 Active TRELEGY ELLIPTA 100-62.5-25 mcg Inhl Disk with Device INHALE 1 PUFF INTO THE LUNGS DAILY. 180 Each 025 Active fluticasone-ume clidin-vilanter (TRELEGY ELLIPTA) 100-62.5-25 mcg Inhl Disk with Device Inhale 1 Puff into the lungs daily at 0900. 2 Each 3 025 Active aspirin 81 mg Oral Tablet, Chewable Take 81 mg by mouth daily. Active Cholecalciferol , Vitamin D3, 125 mcg (5,000 unit) Oral Tablet Take 5,000 Units by mouth daily. Active sildenafiL (VIAGRA) 100 mg Oral Tablet Take 100 mg by mouth as needed for Erectile Dysfunction. Active varenicline tartrate (CHANTIX) 1 mg Oral Tablet Take 1 mg by mouth 2 times daily. Active omeprazole (PRILOSEC) 20 mg Oral Capsule, Delayed Release(E.C.)In dications:Gastr oesophageal reflux disease without esophagitis TAKE 1 CAPSULE EVERY DAY 90 Capsule 3 025 Active rOPINIRole (REQUIP) 0.5 mg Oral Tablet TAKE 1 TABLET THREE TIMES DAILY 270 Tablet 3 025 Active propranoloL (INDERAL) 10 mg Oral TabletIndicatio ns:Tremors of nervous system Take 1 Tablet by mouth 2 times daily. 180 Tablet 3 025 Active XARELTO 20 mg Oral TabletIndicatio ns:Chronic deep vein thrombosis (DVT) of other vein of right lower extremity (HCC) TAKE 1 TABLET EVERY DAY 90 Tablet 3 025 Active XARELTO 20 mg Oral TabletIndicatio ns:Chronic deep vein thrombosis (DVT) of other vein of right lower extremity (HCC) TAKE 1 TABLET EVERY DAY 90 Tablet 3 024 2024 Discontinued Active Problems Problem Noted Date Diagnosed Date Right foot pain 07/08/2024 Ganglion cyst of right foot 07/08/2024 History of bladder cancer 06/01/2024 Overview (06/01/2024): Seen by urology at . Now s/p resection 2024 Urinating without catheter Has appropriate follow up. Bilateral carotid artery stenosis 02/03/2024 Overview (06/01/2024): No symptoms On xarelto and statin. Abnormal liver CT 09/30/2023 Overview (06/01/2024): Suggestive of cirrhosis. Platelets normal, LFT normal, no ascities, no rash. Check RUQ ultrasound. No longer drinks alcohol History of DVT (deep vein thrombosis) 04/29/2023 Overview (04/29/2023): Remote hx. Recurrent. On blood thinner no issues. Uncertain if provoked. No knowledge of genetic predisposition. Lung nodule 12/13/2022 Overview (06/01/2024): No nodule seen in 2024 Assessment & Plan (03/25/2024 5:14 PM EST): will review/compare to findings on most recent [place] chest CT performed 12/2023 with impression of resolution of left lobe nodular density resolution/no acute finding. 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 Documentation requested. Essential tremor 09/08/2020 Overview (09/08/2020): well controled with propranolol Dyslipidemia 09/08/2020 Overview (04/29/2023): 10 year Cardiovascular risk is 29% On lipitor. No issues. Continue same. Mild episode of recurrent major depressive disor addy 09/01/2019 Overview (09/08/2020): Denies HSI, AVH, anhedonia, despair Stable on celexa, continue same. Assessment & Plan (09/01/2019 1:55 PM EDT): Managed on Celexa 20 mg daily Gastroesophageal reflux disease without esophagi tis 02/15/2016 Overview (09/08/2020): Well controled no dysphagia. Denies dark stools, BPR, and hemopytsis. Stable on PPI. History of colon polyps 10/04/2015 Overview (09/08/2020): 3 sigmoid colon polyps removed in 2009 - age 51. Dr Stallworth. Is due for follow up. Hepatitis C antibody test positive 04/21/2015 Overview (09/08/2020): Negative viral load Emphysema with chronic bronchitis 04/18/2015 Overview (12/11/2021): Smokes cigars. Stable on LABA, MARTHA, inhaled steroid, and anticholinergic. B12 deficiency 04/23/2013 Overview (12/15/2019): Off replacement. Vitamin D deficiency 04/23/2013 Overview (04/29/2023): Recommend restart OTC, Vit D Failed total left knee replacement 03/05/2013 Overview (12/15/2019): Limited ROM S/P colon resection 03/05/2013 Overview (09/08/2020): Due to appendiceal carcinoid at age 27 No ongoing issues. Resolved Problems Problem Noted Date Diagnosed Date Resolved Date SBO (small bowel obstruction) 03/25/2024 06/01/2024 Overview (03/25/2024): spontaneous SBO with inpatient hospital stay 03/17/2024-03/20/2024 at [facility] Assessment & Plan (03/25/2024 5:09 PM EST): continue to follow recommended dietary changes, push water intake. notify office if having increased abdominal pain, no bowel movement for 48 hours or new onset nausea and vomiting Bladder mass 03/25/2024 06/01/2024 Overview (03/25/2024): noted 03/2024 during hospital admission with gross hematuria, had ultrasound read as asymmetric and abnormal thickening of the posterior wall of the bladder concerning for potential malignancy versus possible intravesicular hematoma . urinary bladder noted as normal on CT during same hospital admission. Assessment & Plan (03/25/2024 5:16 PM EST): continue with scheduled urology visit on 03/30/2024. Cigarette smoker 03/25/2024 06/01/2024 Concussion with loss of consciousness 02/07/2024 06/01/2024 Chronic post-traumatic heada melania, not intractable 02/07/2024 06/01/2024 Low vitamin B12 level 09/08/20202023 Scapholunate advanced collapse of right wrist 04/20/1909/08/2020 history of appendix carcinoma 06/17/2017 12/11/2021 Overview (09/08/2020): S/p right hemicolectomy age 27 Due for GI follow up. Tremors of nervous system 07/03/2016 Pain in joint 04/19/2015 09/08/2020 Nocturia more than twice per night 04/19/2015 09/08/2020 Acute bacterial sinusitis 04/18/2015 Emphysema 03/05/2013 09/08/2020 DVT (deep venous thrombosis) 03/05/2013 04/29/2023 Overview (09/08/2020): History of 2 DVT- On xarelto Stable no issues. Carpal tunnel syndrome of right wrist 03/05/2013 09/08/2020 Fracture of left foot 03/05/20132019 Status post appendectomy 03/05/2013 Immunizations Immunization Administration Dates Next Due Influenza High Dose 01/08/2024 Influenza Seasonal Injectable 04/01/2013, 007 Influenza Vaccine Quadrivalent 01/10/2016,2015 Influenza Vaccine Quadrivalent PF 01/05/2015 Influenza Virus Vaccine Quadrivalant, Flublok ,02/23/2019 Pfizer SARS-CoV-2 Bivalent B ooster Vaccine 12+ Years ([place]) 12/11/2021 Pfizer SARS-CoV-2 Vaccine 12+ Yrs (Purple Cap) 1 05/02/2020 Pneumococcal Conjugate Vaccine 13 Valent 019 Pneumococcal Polysaccharide 23 Valent 09/08/2020 Quadrivalent Influenza High Dose 12/11/2021 RSV Bilvalent PF (Abrysvo) 03/03/2024 Tdap 11/16/2012 Zoster 06/17/2017 Zoster Recombinant 09/08/2020,06/17/2017 Family History Medical History Relation Name Comments COPD Father Heart Disease Father High Blood Pressure Father High Cholesterol Father COPD Mother Cancer Mother Heart Disease Mother High Blood Pressure Mother High Cholesterol Mother Anesth Problems Neg Hx Relation Name Status Comments Father Mother Social History Smoking Status as of 01/20/2025 Tobacco Use Types Packs/Day Years Used Date Smoking Tobacco: Never Assessed PHQ-2 Answer Date Recorded PHQ-2 Total Score [...] any time in the past 12 m [facility], were you homeless or living in a halfway (including now)? No 03/25/2024 Sex and Gender Information Value Date Recorded Sex Assigned at Not on file Legal Sex Male 10:18 PM EDT Gender Identity Not on file Sexual Orientation Not on file Last Filed Vital Signs Vital Sign Reading Time Taken Comments Blood Pressure 120/77 09/02/2024 1:00 PM EDT Pulse 92 09/02/2024 1:00 PM EDT Temperature 36.8 C (98.2 F) 09/02/2024 1:00 PM EDT Respiratory Rate 20 09/02/2024 1:00 PM EDT Oxygen Saturation 95% 09/02/2024 1:3 9 PM EDT at rest with recovery on 3 liters Inhaled Oxygen Concentration - - Weight 98.4 kg (217 lb) 09/02/2024 1:00 PM EDT Height 182.9 cm (6') 07/08/2024 8:37 AM EDT Body Mass Index 29.43 07/08/2024 8:37 AM EDT Plan of Treatment Upcoming Encounters Date Type Department Care Team (Late st Contact Info) Description 02/25/2025 12:30 PM EST Appointment [facility] [address] [place], [place] [id number] Fazal Craig MD [address] [place] [address] [address] [place] [address] 02/25/2025 2:20 PM EST Office Visit [facility] [address] [place] [address] Drive [address] [place] [address] Fazal Craig MD [address] [place] [address] DR [address] [place] [address] Procedures Procedure Name Priority Date/Time Associated Diagnosis Comments COLOGUARD Routine 09/10/2024 12:26 PM EDT Colon cancer screening MRI FOOT RIGHT W WO CONTRAST Routine 07/03/2024 2:23 PM EDT Subcutaneous nodule of foot VITAMIN D 25 HYDROXY Routine 06/01/2024 1:49 PM EDT Vitamin D deficiency PROSTATE SPECIFIC ANTIGEN (SCREENING) Routine 06/01/2024 1:49 PM EDT Prostate cancer screening LIPID PANEL REFLEX Routine 06/01/2024 1: 49 PM EDT Dyslipidemia COMPREHENSIVE METABOLIC PANEL Routine 06/01/2024 1:49 PM EDT Hyponatremia CBC WITH DIFF Routine 06/01/2024 1:49 PM EDT Anemia, unspecified type VITAMIN B12 LEVEL Routine 06/01/2024 1:4 9 PM EDT Anemia, unspecified type IRON+TIBC Routine 06/01/2024 1:49 PM EDT Anemia, unspecified type BASIC METABOLIC PANEL Routine 03/25/2024 10:10 AM EST Gross hematuria CT HEAD WO CONTRAST IVIS 02/07/2024 2 :57 PM EST Concussion with unknown loss of consciousness status, initial encounter [facility] US CAROTID DUPLEX BILATERAL Routine 01/17/2024 3:39 PM EDT Atherosclerosis of both carotid arteries CT SOFT TISSUE NECK W CONTRAST Routine 01/03/2024 2:[address] CHEST WO CONTRAST Routine 01/03/2024 2:19 PM EDT Lung nodule CREATININE ISTAT Routine 01/03/2024 2:15 PM EDT HCV RNA QUANT PCR Routine 10/17/2023 2:0 7 PM EDT Partial nodular transformation of liver Other specified inflammatory liver diseases ACUTE HEPATITIS PANEL Routine 10/17/2023 2:07 PM EDT Partial nodular transformation of liver Other specified inflammatory liver diseases IRON+TIBC Routine 10/17/2023 2:07 PM EDT Partial nodular transformation of liver ANTINUCLEAR ANTIBODIES (MATTHEW) SCREEN BY DAQUAN W/ REFLEX TO IFA Routine 10/17/2023 2:07 PM EDT Partial nodular transformation of liver US RIGHT UPPER QUADRANT Routine 10/10/2023 9:33 AM EDT Abnormal liver CT CT ABDOMEN PELVIS WO ORAL OR IV CONTRAST Routine 09/27/2023 10:28 AM EDT Gross hematuria XR KNEE RIGHT AP LATERAL AND AXIAL Routine 09/16/2023 1:26 PM EDT Chronic pain of right knee URINALYSIS Routine 09/12/2023 1:48 PM EDT Gross hematuria URINE CULTURE (NO STAIN) Routine 09/12/2023 1:48 PM EDT Gross hematuria SEP URINALYSIS POC Routine 09/12/2023 1: 13 PM EDT Gross hematuria IRON+TIBC Routine 04/29/2023 11:41 AM EST Anemia, unspecified type COMPREHENSIVE METABOLIC PANEL Routine 04/29/2023 11:41 AM EST Dyslipidemia LIPID PANEL REFLEX Routine 04/29/2023 11:41 AM EST Dyslipidemia CBC WITH DIFF Routine 04/29/2023 11:41 AM EST B12 deficiency VITAMIN B12 LEVEL Routine 04/29/2023 11:41 AM EST B12 [address] CT CHEST WO CONTRAST Routine 01/23/2023 10:14 AM EST Lung nodule CT LUNG CANCER SCREENING LOW DOSE Routine 11/22/2022 4:22 PM EDT Encounter for screening for lung cancer History of tobacco use SCANNED RADIOLOGY REPORT 02/26/2022 3:18 PM EST EC ECHOCARDIOGRAM COMPLETE W DOPPLER AND COLOR FLOW MAPPING Routine 02/22/2022 2:17 PM EST Chest pain, unspecified type SOB (shortness of breath) Smoker NM MYOCARDIAL PERFUSION SPECT STRESS AND REST Routine 02/22/2022 1:09 PM EST Chest pain, unspecified type SOB (shortness of breath) Smoker ST STRESS TEST LEXISCAN Routine 02/22/2022 12:49 PM EST Chest pain, unspecified type SOB (shortness of breath) Smoker POCT EKG Routine 01/03/2022 1:33 PM EDT Chest pain, unspecified type VITAMIN D 25 HYDROXY Routine 12/11/2021 4:19 PM EDT Vitamin D deficiency VITAMIN B12 LEVEL Routine 12/11/2021 4:1 9 PM EDT Low vitamin B12 level PROSTATE SPECIFIC ANTIGEN (SCREENING) Routine 12/11/2021 4:19 PM EDT Prostate cancer screening IRON+TIBC Routine 12/11/2021 4:19 PM EDT Anemia, unspecified type CBC WITH DIFF Routine 12/11/2021 4:19 PM EDT Anemia, unspecified type LIPID PANEL REFLEX Routine 12/11/2021 4: 19 PM EDT Dyslipidemia COMPREHENSIVE METABOLIC PANEL Routine 12/11/2021 4:19 PM EDT Dyslipidemia POCT EKG Routine 12/11/2021 3:38 PM EDT Chest pain at rest XR CHEST PA AND LATERAL Routine 12/06/2021 1:18 PM EDT Acute cough POCT ANAMARIA SARS ANTIGEN Routine 12/06/2021 11:43 AM EDT Acute cough POCT ANAMARIA INFLUENZA A/B Routine 12/06/2021 11:39 AM EDT Acute cough POCT INFLUENZA A/B Routine 06/16/2021 2: 12 PM EDT Fever, unspecified fever cause POCT ANAMARIA SARS ANTIGEN Routine 06/16/2021 2:12 PM EDT Fever, unspecified fever cause PA US AAA SCREENING EXAM MEDICARE Routine 12/30/2020 9:15 AM EDT Screening for AAA (abdominal aortic aneurysm) CT LUNG CANCER SCREENING LOW DOSE Routine 12/22/2020 2:05 PM EDT Personal history of tobacco use VITAMIN B12 LEVEL Routine 09/08/2020 11:15 AM EDT Low vitamin B12 level VITAMIN D 25 HYDROXY Routine 09/08/2020 11:15 AM EDT Vitamin D deficiency LIPID PANEL REFLEX Routine 09/08/2020 11:15 AM EDT Dyslipidemia COMPREHENSIVE METABOLIC PANEL Routine 09/08/2020 11:15 AM EDT Dyslipidemia CBC WITH DIFF Routine 01/15/2020 10:09 AM EDT Normocytic anemia CT LUNG CANCER SCREENING LOW DOSE Routine 12/23/2019 4:10 PM EDT Encounter for screening for malignant neoplasm of respiratory organs Smoking greater than 30 pack years LIPID PANEL REFLEX Routine 12/15/2019 2: 41 PM EDT Hyperlipidemia with target LDL less than 100 VITAMIN B12/ FOLIC ACID Routine 12/15/2019 2:41 PM EDT B12 deficiency VITAMIN D 25 HYDROXY Routine 12/15/2019 2:41 PM EDT Vitamin D deficiency PROSTATE SPECIFIC ANTIGEN (SCREENING) Routine 12/15/2019 2:41 PM EDT Screening for prostate cancer COMPREHENSIVE METABOLIC PANEL Routine 12/15/2019 2:41 PM EDT Vitamin D deficiency B12 deficiency S/P colon resection CBC WITH DIFF Routine 12/15/2019 2:41 PM EDT B12 deficiency SCANNED RHYTHM STRIPS 04/23/2019 8:26 AM EST INTRAOP AIRWAY PLACEMENT Routine 04/21/2019 2:09 PM EST WRIST PROXIMAL ROW CARPECTOMY 04/21/2019 1:45 PM EST Injury of right hand, initial encounter Special Needs BLOCK PERIPHERAL BLOCK Routine 04/21/2019 1:22 PM EST EK EKG 12 LEAD Routine 04/21/2019 11:30 AM EST BB HISTORY CHECK Routine 02/23/2019 11:37 AM EST Blood typing encounter ABORH Routine 02/23/2019 11:37 AM EST Blood typing encounter TSH REFLEX TO FT4 Routine 02/23/2019 11:37 AM EST Encounter for Medicare annual wellness exam HEMOGLOBIN A1C Routine 02/23/2019 11:37 AM EST Encounter for Medicare annual wellness exam CBC Routine 02/23/2019 11:37 AM EST Encounter for Medicare annual wellness exam COMPREHENSIVE METABOLIC PANEL Routine 02/23/2019 11:37 AM EST Encounter for Medicare annual wellness exam LIPID SCREEN Routine 02/23/2019 11:37 AM EST Encounter for Medicare annual wellness exam XR FOOT RIGHT AP LATERAL AND OBLIQUE Routine 06/19/2018 2:46 PM EDT Right foot pain MRI CERVICAL SPINE WO CONTRAST Routine 08/21/2017 5:09 PM EDT Neck pain XR CERVICAL SPINE AP LATERAL FLEXION EXTENSION Routine 08/21/2017 4:23 PM EDT Neck pain XR CERVICAL SPINE AP LATERAL ODONTOID AND OBLIQUE Routine 07/19/2017 11:13 AM EDT Neck pain MRI HAND RIGHT WO CONTRAST Routine 07/03/2017 4:52 PM EDT Right hand pain XR WRIST RIGHT PA LATERAL AND OBLIQUE Routine 06/21/2017 12:12 PM EDT History of joint pain VITAMIN B12/ FOLIC ACID Routine 06/19/2017 8:26 AM EDT B12 deficiency URIC ACID Routine 06/19/2017 8:26 AM EDT History of joint pain VITAMIN D 25 HYDROXY Routine 06/19/2017 8:26 AM EDT Visit for well man health check Vitamin D deficiency THYROID STIMULATING HORMONE Routine 06/19/2017 8:26 AM EDT Visit for well man health check Screening for thyroid disorder PROSTATE SPECIFIC ANTIGEN (SCREENING) Routine 06/19/2017 8:26 AM EDT Visit for well man health check Screening for prostate cancer LIPID SCREEN Routine 06/19/2017 8:26 AM EDT Visit for well man health check Screening for cholesterol level HEMOGLOBIN A1C Routine 06/19/2017 8:26 AM EDT Visit for well man health check Screening for diabetes mellitus (DM) COMPREHENSIVE METABOLIC PANEL Routine 06/19/2017 8:26 AM EDT Visit for well man health check Hepatitis C antibody test positive Screening for diabetes mellitus (DM) Screening for cholesterol level CBC WITH DIFF Routine 06/19/2017 8:26 AM EDT Visit for well man health check B12 deficiency HCV QUANT W/RFLX TO GENOTYPE -REF LAB Routine 06/19/2017 8:26 AM EDT Hepatitis C antibody test positive Visit for well man health check SCANNED RADIOLOGY REPORT 02/06/2016 9:53 AM EST SCANNED RADIOLOGY REPORT 02/06/2016 9:53 AM EST VITAMIN D 25 HYDROXY Routine 01/10/2016 10:41 AM EDT Vitamin D deficiency VITAMIN D 25 HYDROXY Routine 10/04/2015 10:36 AM EDT Vitamin D deficiency VITAMIN D 25 HYDROXY Routine 08/29/2015 1:55 PM EDT Vitamin D deficiency HCV GENOTYPE BY PCR AND SEQUENCING -REF LAB Routine 05/10/2015 1:41 PM EST Hepatitis C antibody test positive HCV RNA QUANT, REAL-TIME PCR -REF LAB Routine 05/10/2015 1:41 PM EST Hepatitis C antibody test positive T4, FREE (THYROXINE) Routine 04/18/2015 4:00 PM EST Annual physical exam VITAMIN D 25 HYDROXY Routine 04/18/2015 4:00 PM EST Vitamin D deficiency THYROID STIMULATING HORMONE Routine 04/18/2015 4:00 PM EST Annual physical exam COMPREHENSIVE METABOLIC PANEL Routine 04/18/2015 4:00 PM EST Annual physical exam CBC Routine 04/18/2015 4:00 PM EST Annual physical exam ACUTE HEPATITIS PANEL Routine 04/18/2015 4:00 PM EST Annual physical exam US RIGHT UPPER QUADRANT Routine 04/30/2013 12:00 PM EST Abnormal LFTs XR WRIST RIGHT PA LATERAL AND OBLIQUE Routine 04/02/2013 9:13 AM EST Wrist pain XR WRIST LEFT PA LATERAL AND OBLIQUE Routine 04/02/2013 9:13 AM EST Wrist pain XR PELVIS Routine 04/02/2013 9:13 AM EST Pelvic Pain Complicating VITAMIN B12/ FOLIC ACID Routine 04/02/2013 8:53 AM EST Vitamin D deficiency VITAMIN D 25 HYDROXY Routine 04/02/2013 8:53 AM EST Vitamin D deficiency LIPID SCREEN Routine 04/02/2013 8:53 AM EST Routine health maintenance HEPATIC FUNCTION PANEL Routine 04/02/2013 8:53 AM EST Routine health maintenance BASIC METABOLIC PANEL Routine 04/02/2013 8:53 AM EST Routine health maintenance SCANNED OR REPORT 10/31/2009 12:00 AM EDT SCANNED OR REPORT STL 08/09/2009 12:00 AM EDT XX KNEE 3 VIEWS Routine 11/21/2005 2:47 PM EDT XX HIP & PELVIS Routine 10/20/2005 10:54 AM EDT XX CHEST PA & LATERAL Routine 08/06/2005 4:06 PM EDT US RETROPERITONEAL COMPLETE Routine 07/16/2005 8:14 AM EDT VA ARTERIAL LOWER Routine 07/16/2005 7:4 5 AM EDT VA ARTERIAL/BRACHIAL Routine 03/08/2005 10:[address] HEAD UPHOLSTERY HANDLER Routine 02/10/2005 12:29 PM EST XX KNEE Routine 01/29/2005 10:43 AM EST XX FOOT & TOES Routine 01/29/2005 10:42 AM EST US EXTREMITY NON-VAS LEFT Routine 03/22/2004 12:00 AM EST Results * COLOGUARD (09/10/2024 12:26 PM EDT) COLOGUARD CLINICAL REPORT Negative Negative [facility] Comment: The Cologuard (TM) test was performed on this specimen. NEGATIVE TEST RESULT. A negative Cologuard result indicates a low likelihood that a colorectal cancer (CRC) or advanced adenoma (adenomatous polyps with more advanced pre-malignant features) is present. The chance that a person with a negative Cologuard test has a colorectal cancer is less than 1 in 1500 (negative predictive value >99.9%) or has an advanced adenoma is less than 5.3% (negative predictive value 94.7%). These data are based on a prospective cross-sectional study of 10,000 individuals at average risk for colorectal cancer who were screened with both Cologuard and colonoscopy. (Jocelyn Garcia al, N Engl J Med 2014;370(14):8145-5641) The normal value (reference range) for this assay is negative. COLOGUARD RE-SCREENING RECOMMENDATION: Periodic colorectal cancer screening is an important part of preventive healthcare for asymptomatic individuals at average risk for colorectal cancer. Following a negative Cologuard result, the [place] [employer] and U.S. Multi-Society Task Force screening guidelines recommend a Cologuard re-screening interval of 3 years. References: [place] [employer] Guideline for Colorectal Cancer Screening: https://www.cancer.org/cancer/gnlgz-jzfuhr-ayqymt/gktmgdlqz-veggirucq-bdzkfie/ac s-rec ommendations.html.; Matti DK, Isabella GONZALES, Taylor MartinoK, Colorectal Cancer Screening: Recommendations for Physicians and Patients from the U.S. Multi-Society Task Force on Colorectal Cancer Screening , Am J Gastroenterology 2017; 112:0991-6021. TEST DESCRIPTION: Composite algorithmic analysis of stool DNA-biomarkers with hemoglobin immunoassay. Quantitative values of individual biomarkers are not reportable and are not associated with individual biomarker result reference ranges. Cologuard is intended for colorectal cancer screening of adults of either sex, 45 years or older, who are at average-risk for colorectal cancer (CRC). Cologuard has been approved for use by the U.S. FDA. The performance of Cologuard was established in a cross sectional study of average-risk adults aged 50-84. Cologuard performance in patients ages 45 to 49 years was estimated by sub-group analysis of near-age groups. Colonoscopies performed for a positive result may find as the most clinically significant lesion: colorectal cancer [4.0%], advanced adenoma (including sessile serrated polyps greater than or equal to 1cm diameter) [20%] or non- advanced adenoma [31%]; or no colorectal neoplasia [45%]. These estimates are derived from a prospective cross-sectional screening study of 10,000 individuals at average risk for colorectal cancer who were screened with both Cologuard and colonoscopy. (Jocelyn Marsh, N Engl J Med 2014;370(14):7365-0483.) Cologuard may produce a false negative or false positive result (no colorectal cancer or precancerous polyp present at colonoscopy follow up). A negative Cologuard test result does not guarantee the absence of CRC or advanced adenoma (pre-cancer). The current Cologuard screening interval is every 3 years. ([place] [employer] and U.S. Multi-Society Task Force). Cologuard performance data in a 10,000 patient pivotal study using colonoscopy as the reference method can be accessed at the following location: www.Featurespace/results. Additional description of the Cologuard test process, warnings and precautions can be found at www.cologuard.com. Stool 09/10/2024 12:2 6 PM EDT 09/11/2024 9:37 AM EDT Riley Hunter MD EXACT SCIENCE - ORDERABLES Final Result Performing Organization Address City/State/[facility] Co de Phone Number Group [employer], [place] [address], [facility] [employer] [address] [place] [address] * MRI FOOT RIGHT W WO CONTRAST (07/03/2024 2:23 PM EDT) Anatomical Region Laterality Modality Foot, Toes, Calcaneus, Tarsal Joint Magnetic Resonance 07/03/2024 2:23 PM EDT Impressions 07/03/2024 3:00 PM EDT Circumscribed fluid-signal lesion extending between the first and second metatarsals into the subcutaneous tissues measuring 3.2 x 3 x 2.3 cm, most suggestive of a benign ganglion cyst. Narrative 07/03/2024 3:00 PM EDT MRI FOOT RIGHT W WO CONTRAST, 07/03/2024 2:23 PM CLINICAL HISTORY: R22.40-Localized swelling, mass and lump, unspecified lower [id number] COMPARISON: None. PROCEDURE COMMENTS: Multiplanar, multisequence MR imaging of the foot prior to and following the intravenous administration of Dotarem contrast. FINDINGS: Corresponding to the site of the reported palpable abnormality at the dorsal margin of the proximal forefoot is a circumscribed lobulated lesion extending between the first and second metatarsal proximal to mid shafts measuring 3.2 x 3 x 2.3 cm (longitudinal, [id number], transverse). This shows homogeneous fluid-signal intensity on T2-weighted imaging, homogeneous hypointense signal on T1-weighted imaging, and no internal masslike enhancement. The most plantar margin of the lesion is at the level of the first metatarsal base plantar cortex. This has a neck extending dorsally through the first and second metatarsals with the largest component in the dorsal subcutaneous tissues. There is no marrow-signal abnormality. No fracture, dislocation, or joint effusion is present. There are mild degenerative changes in the midfoot and of the first metatarsophalangeal joint. The flexor and extensor tendons are intact. There is complete atrophy of the intrinsic musculature. Dorsal subcutaneous edema noted in the mid and distal forefoot. Procedure Note Kody Coffey MD - 07/03/2024 MRI FOOT RIGHT W WO CONTRAST, 07/03/2024 2:23 PM CLINICAL HISTORY: R22.40-Localized swelling, mass and lump, unspecifiedlower [id number] COMPARISON: None. PROCEDURE COMMENTS: Multiplanar, multisequence MR imaging of the footprior to and following the intravenous administration of Dotarem contrast. FINDINGS: Corresponding to the site of the reported palpable abnormality at thedorsal margin of the proximal forefoot is a circumscribed lobulated lesionextending between the first and second metatarsal proximal to mid shafts measuring3.2 x 3 x 2.3 cm (longitudinal, [id number], transverse). This showshomogeneous fluid-signal intensity on T2-weighted imaging, homogeneous hypointensesignal on T1-weighted imaging, and no internal masslike enhancement. The mostplantar margin of the lesion is at the level of the first metatarsal baseplantar cortex. This has a neck extending dorsally through the first and second metatarsals with the largest component in the dorsal subcutaneoustissues. There is no marrow-signal abnormality. No fracture, dislocation, orjoint effusion is present. There are mild degenerative changes in the midfootand of the first metatarsophalangeal joint. The flexor and extensor tendons are intact. There is complete atrophy ofthe intrinsic musculature. Dorsal subcutaneous edema noted in the mid anddistal forefoot. IMPRESSION: Circumscribed fluid-signal lesion extending between the first and second metatarsals into the subcutaneous tissues measuring 3.2 x 3 x 2.3 cm,most suggestive of a benign ganglion cyst. Riley Hunter MD IMG MRI ORDERABLES Final Re sult * (ABNORMAL) IRON+TIBC (06/01/2024 1:49 PM EDT) Only the most recent of4 resultswithin the time period is included. Iron 65 50 - 170 mcg/dL 06/01/2024 9:41 PM EDT [facility] Transferrin 257 200 - 360 mg/dL 06/01/2024 9:41 PM EDT [facility] Transferrin Saturation 18(L) 20 - 50 % 06/01/2024 9:41 PM EDT [facility] TIBC 360 250 - 400 mcg/dL 06/01/2024 9:41 PM EDT [facility] Blood VENOUS BLOOD / Unknown Venipuncture / Unknown 06/01/2024 1:49 PM EDT 06/01/2024 1:49 PM EDT Riley Hunter MD CHEMISTRY ORDERABLES Final Result [facility] [address] [facility] , [place] [address] * LIPID PANEL REFLEX (06/01/2024 1:49 PM EDT) Only the most recent of5 resultswithin the time period is included. Cholesterol 142 <200 mg/dL 06/01/2024 9:41 PM EDT [facility] Comment: < 200 Desirable 200 - 239 Borderline High >= 240 High Triglyceride 148 <150 mg/dL 06/01/2024 9:41 PM EDT [facility] Comment: < 150 Normal 150 - 199 Borderline High 200 - 499 High >= 500 Very High HDL 53 >=40 mg/dL 06/01/2024 9:41 PM EDT [facility] Comment: > 60 Optimal 40 - 60 Acceptable < 40 Low LDL Calculated 64 <100 mg/dL 06/01/2024 9:41 PM EDT [facility] Comment: < 100 Optimal 100 - 129 Near or above optimal 130 - 159 Borderline High 160 - 189 High >= 190 Very High The National Institutes of Health (NIH) equation is used for all lipid panels that report calculated LDL (LDL-C). Non-HDL-C Calculated 89 <=129 mg/dL 06/01/2024 9:41 PM EDT [facility] Comment: <130 Desirable 130-159 Above Desirable 160-189 Borderline High 190-219 High >= 220 Very High Fasting Specimen? No None 025 9:41 PM EDT [facility] Blood VENOUS BLOOD / Unknown Venipuncture / Unknown 06/01/2024 1:49 PM EDT 06/01/2024 1:49 PM EDT Riley Hunter MD CHEMISTRY ORDERABLES Final Result [facility] [address] [facility], [place] [address] [facility] [address] [place] [address] * PROSTATE SPECIFIC ANTIGEN (SCREENING) (06/01/2024 1:49 PM EDT) Only the most recent of4 resultswithin the time period is included. Total Psa 0.14 <=4.00 ng/mL 06/01/2024 10:45 PM EDT [facility] Blood VENOUS BLOOD / Unknown Venipuncture / Unknown 06/01/2024 1:49 PM EDT 06/01/2024 1:49 PM EDT Narrative [facility] [employer] - 06/01/2024 10:45 PM EDT The Bishnu Elecsys total PSA electrochemiluminescence (ECLIA) immunoassay is used. Results obtained with different test methods or kits cannot be used interchangeably. The Bishnu method is approved for use as an aid in the detection of prostate cancer when used in conjunction with a digital rectal exam in individuals with a prostate aged 50 years or older. The assay is also indicated for the serial measurement of PSA to aid in the prognosis and management of prostate cancer patients. Elevated tPSA concentrations can only suggest the presence of prostate cancer until biopsy is performed. Levels may also be elevated in benign prostatic hyperplasia or inflammatory conditions of the prostate. Riley Hunter MD CHEMISTRY ORDERABLES Final Result Performing Organization Address [facility] de Phone Number [facility], [place] [address] * (ABNORMAL) VITAMIN D 25 HYDROXY (06/01/2024 1:49 PM EDT) Only the most recent of10 resultswithin the time period is included. Pathologist [facility] Vit D 25 OH 28.0(L) 30.0 - 150.0 ng/mL 06/01/2024 10:45 PM EDT [facility] Comment: Preferred: >= 30 ng/mL Insufficient: 21-29 ng/mL Deficient <= 20 ng/mL Possible Toxicity: >150 ng/mL Samples should not be taken from patients receiving therapy with high biotin doses (i.e. > 5 mg/day) until at least 8 hours following the last biotin administration. Blood VENOUS BLOOD / Unknown Venipuncture / Unknown 06/01/2024 1:49 PM EDT 06/01/2024 1:49 PM EDT Riley Hunter MD CHEMISTRY ORDERABLES Final Result Performing Organization Address [facility] Phone Number [facility] [place] [address] * (ABNORMAL) CBC WITH DIFF (06/01/2024 1:49 PM EDT) Only the most recent of6 resultswithin the time period is included. [facility] WBC 5.2 3.7 - 10.3 x10(3)/mcL 06/01/2024 9:02 PM EDT [facility] RBC 3.13(L) 4.60 - 6.10 x10(6)/mcL 06/01/2024 9:02 PM EDT [facility] Hgb 9.2(L) 13.7 - 17.5 g/dL 06/01/2024 9:02 PM EDT [facility] Hct 30.4(L) 40.0 - 51.0 % 06/01/2024 9:02 PM EDT [facility] MCV 97.1 80.0 - 100.0 fL 06/01/2024 9:02 PM EDT [facility] MCH 29.4 26.0 - 34.0 pg 06/01/2024 9:02 PM EDT [facility] MCHC 30.3(L) 30.7 - 35.5 g/dL 06/01/2024 9:02 PM EDT [facility] RDW 14.8 <=14.9 % 06/01/2024 9:02 PM EDT [facility] Platelet 330 155 - 369 x10(3)/mcL 06/01/2024 9:02 PM EDT [facility] MPV 9.5 8.8 - 12.5 fL 06/01/2024 9:02 PM EDT [facility] Neut Percent 46.4 % 06/01/2024 9:02 PM EDT [facility] Comment:Neutrophils equals s egs plus bands Imm Gran% 0.2 % 06/01/2024 9:02 PM EDT [facility] Comment:Automated count of m etamyelocytes, myelocytes and promyelocytes. Lymph Percent 41.1 % 06/01/2024 9:02 PM EDT [facility] [place] Percent 6.9 % 06/01/2024 9:02 PM EDT [facility] Eos Percent 4.8 % 06/01/2024 9:02 PM EDT [facility] Baso Percent 0.6 % 06/01/2024 9:02 PM EDT [facility] Neut # 2.4 1.6 - 6.1 x10(3)/mcL 06/01/2024 9:02 PM EDT [facility] Comment:Neutrophils equals s egs plus bands IMMGRAN# 0.0 0.0 - 0.1 x10(3)/mcL 06/01/2024 9:02 PM EDT [facility] Comment:Automated count of m etamyelocytes, myelocytes and promyelocytes. An absolute IG <0.1 is reported as 0.0. Lymph # 2.1 1.2 - 3.9 x10(3)/[facility] 06/01/2024 9:02 PM EDT [facility] [place] # 0.4 0.3 - 0.9 x10(3)/[facility] 06/01/2024 9:02 PM EDT [facility] Eos# 0.3 0.0 - 0.5 x10(3)/[facility] 06/01/2024 9:02 PM EDT [facility], [facility] Baso # 0.0 0.0 - 0.1 x10(3)/[facility] 06/01/2024 9:02 PM EDT [facility] [employer], [facility] Blood VENOUS BLOOD / Unknown Venipuncture / Unknown 06/01/2024 1:49 PM EDT 06/01/2024 1:49 PM EDT Riley Hunter MD HEMATOLOGY ORDERABLES Final Result Performing Organization Address [facility] Phone Number [facility] , [place] [address] * VITAMIN B12 LEVEL (06/01/2024 1:49 PM EDT) Only the most recent of4 resultswithin the time period is included. [facility] Vitamin B12 334 232 - 1,245 pg/mL 06/01/2024 10:45 PM EDT [facility] Blood VENOUS BLOOD / Unknown Venipuncture / Unknown 06/01/2024 1:49 PM EDT 06/01/2024 1:49 PM EDT Narrative [facility] - 06/01/2024 10:45 PM EDT Ingestion of eli doses of biotin (>5 mg/day) taken within 8 hours of drawing blood sample can interfere with this immunoassay test. Riley Hunter MD CHEMISTRY ORDERABLES Final Result Performing Organization Address [facility] Phone Number [facility] [place] [address] * (ABNORMAL) COMPREHENSIVE METABOLIC PANEL (06/01/2024 1:49 PM EDT) Only the most recent of8 resultswithin the time period is included. Sodium 143 136 - 145 mmol/L 06/01/2024 9:41 PM EDT [facility] Potassium 4.4 3.5 - 5.0 mmol/L 06/01/2024 9:41 PM EDT [facility] Chloride 106 98 - 107 mmol/L 06/01/2024 9:41 PM EDT [facility] Total CO2 27 22 - 29 mmol/L 06/01/2024 9:41 PM EDT [facility] Anion Gap 10 7 - 16 mmol/L 06/01/2024 9:41 PM EDT [facility] Calcium 9.4 8.8 - 10.4 mg/dL 06/01/2024 9:41 PM EDT [facility] Glucose Lvl 102(H) 70 - 99 mg/dL 06/01/2024 9:41 PM EDT [facility] BUN 14 8 - 23 mg/dL 06/01/2024 9:41 PM EDT [facility] Creatinine 0.79 0.67 - 1.30 mg/dL 06/01/2024 9:41 PM EDT [facility] Albumin 3.9 3.2 - 4.6 gm/dL 06/01/2024 9:41 PM EDT [facility] Total Protein 7.0 6.4 - 8.3 gm/dL 06/01/2024 9:41 PM EDT [facility] Bili Total 0.2 0.2 - 1.4 mg/dL 06/01/2024 9:41 PM EDT [facility] ALT 8 <=41 U/L 06/01/2024 9:41 PM EDT [facility] AST 17 <=40 U/L 06/01/2024 9:41 PM EDT [facility] Alk Phos 81 40 - 129 U/L 06/01/2024 9:41 PM EDT [facility] eGFR (CKD-EPIcr 2020) 96 >=60 mL/min/1.7 3 m2 06/01/2024 9:41 PM EDT [facility] Comment:Estimated GFR was ca lculated using the CKD-EPIcr (2021) equation refit without race. The equation is recommended by the National Kidney Foundation - [place] [employer] of Nephrology Task Force. Blood VENOUS BLOOD / Unknown Venipuncture / Unknown 06/01/2024 1:49 PM EDT 06/01/2024 1:49 PM EDT us Riley Hunter MD CHEMISTRY ORDERABLES Final Result [facility] [address] [facility] , [place] [address] * BASIC METABOLIC PANEL (03/25/2024 10:10 AM EST) Only the most recent of2 resultswithin the time period is included. Sodium 140 136 - 145 mmol/L 03/25/2024 2:43 PM EST [facility] Potassium 4.0 3.5 - 5.0 mmol/L 03/25/2024 2:43 PM EST [facility] Chloride 104 98 - 107 mmol/L 03/25/2024 2:43 PM EST [facility] Total CO2 25 22 - 29 mmol/L 03/25/2024 2:43 PM EST [facility] Anion Gap 11 7 - 16 mmol/L 03/25/2024 2:43 PM EST [facility] Calcium 9.9 8.8 - 10.4 mg/dL 03/25/2024 2:43 PM EST [facility] Glucose Lvl 96 70 - 99 mg/dL 03/25/2024 2:43 PM EST [facility] BUN 13 8 - 23 mg/dL 03/25/2024 2:43 PM EST [facility] Creatinine 0.94 0.67 - 1.30 mg/dL 03/25/2024 2:43 PM EST [facility] eGFR (CKD-EPIcr 2020) 88 >=60 mL/min/1.7 3 m2 03/25/2024 2:43 PM EST [facility] Comment:Estimated GFR was ca lculated using the CKD-EPIcr (2020) equation refit without race. The equation is recommended by the National Kid[employer] Foundation - [place] [employer] of Nephrology Task Force. Blood VENOUS BLOOD / Unknown Venipuncture / Unknown 03/25/2024 10:10 AM EST 03/25/2024 10:10 AM EST us Diane Ochoa [facility] CHEMISTRY ORDERABLES Yashira beverly Result [facility] [employer] [address] [facility], [place] [address] [facility] [address] [place] [address] * CT HEAD WO CONTRAST (02/07/2024 2:57 PM EST) Anatomical Region Laterality Modality Head Computed Tomogra phy 02/07/2024 2:57 PM EST Impressions 02/07/2024 3:27 PM EST No acute intracranial abnormality - Note: Radiology results need to be interpreted within a comprehensive clinical context. If you have questions about the radiology report, please contact the office of the ordering clinician. Narrative 02/07/2024 3:[address] HEAD WO CONTRAST 02/07/2024 2:57 PM CLINICAL HISTORY: S06.0XAA-Concussion with loss of consciousness status unknown, initial [id number]. COMPARISON: None. PROCEDURE COMMENTS: Routine noncontrast head CT with multiplanar reconstructions. Dose 1 : CT DLP Total : 806.86 mGycm DLP Spiral Max : 802.68 mGycm Maximum CTDI Vol : 46.94 mGy FINDINGS: Preserved duarte-white matter differentiation. No acute hemorrhage. No midline shift. No hydrocephalus. The orbits, paranasal sinuses, and mastoids are grossly unremarkable. Procedure Note James Bolaños MD - 02/07/2024 CT HEAD WO CONTRAST 02/07/2024 2:57 PM CLINICAL HISTORY: S06.0XAA-Concussion with loss of consciousness status unknown, initial [id number]. COMPARISON: None. PROCEDURE COMMENTS: Routine noncontrast head CT with multiplanar reconstructions. Dose 1 : CT DLP Total : 806.86 mGycm DLP Spiral Max : 802.68 mGycm Maximum CTDI Vol : 46.94 mGy FINDINGS: Preserved duarte-white matter differentiation. No acute hemorrhage. Nomidline shift. No hydrocephalus. The orbits, paranasal sinuses, and mastoids are grossly unremarkable. IMPRESSION: No acute intracranial abnormality - Note: Radiology results need to be interpreted within a comprehensiveclinical context. If you have questions about the radiology report, please contactthe office of the ordering clinician. Jose Pruitt MD [facility] CT ORDERABLES Final Result * PA US CAROTID DUPLEX BILATERAL (01/17/2024 3:39 PM EDT) Anatomical Region Laterality Modality Vascular, Head, Neck Vascular Im aging 01/17/2024 3:00 PM EDT Impressions 01/18/2024 12:45 PM EDT Conclusions * RIGHT. * There is a right proximal internal carotid artery mildly obstructive lesion noted, with an estimated 1-39% stenosis. * Calcific atherosclerotic plaque causing acoustic shadowing does not allow adequate sampling of velocities in the right internal carotid artery. Significant stenosis cannot be excluded. * There is a right proximal subclavian artery lesion with >50% stenosis. * LEFT. * There is a left proximal internal carotid artery mildly obstructive lesion noted, with an estimated 1-39% stenosis by velocity and ICA/CCA ratio; However, a higher grade stenosis cannot be ruled out secondary to plaque morphology and abnormal waveform. * Antegrade flow visualized in the bilateral vertebral artery. Narrative Procedure Note Geremias Escobedo MD - 01/18/2024 IMPRESSION Conclusions * RIGHT. * There is a right proximal internal carotid artery mildly obstructive lesion noted, with an estimated 1-39% stenosis. * Calcific atherosclerotic plaque causing acoustic shadowing does notallow adequate sampling of velocities in the right internal carotid artery. Significant stenosis cannot be excluded. * There is a right proximal subclavian artery lesion with >50%stenosis. * LEFT. * There is a left proximal internal carotid artery mildly obstructivelesion noted, with an estimated 1-39% stenosis by velocity and ICA/CCA ratio; However, a higher grade stenosis cannot be ruled out secondary to plaque morphology and abnormal waveform. * Antegrade flow visualized in the bilateral vertebral artery. Result [facility] Cherry Baca APRN IMG VASCULAR ORDERABLES Fin al Result * CT SOFT TISSUE NECK W CONTRAST (01/03/2024 2:29 PM EDT) Anatomical Region Laterality Modality Neck Computed Tomogra phy 01/03/2024 2:29 PM EDT Impressions 01/03/2024 2:59 PM EDT 1. No lymphadenopathy or other acute process. 2. Moderate to advanced bilateral carotid atherosclerotic calcification. 3. Cervical spondylosis. - - Note: Radiology results need to be interpreted within a comprehensive clinical context. If you have questions about the radiology report, please contact the office of the ordering clinician. Narrative 01/03/2024 2:[address] SOFT TISSUE NECK W CONTRAST: 01/03/2024 2:29 PM CLINICAL HISTORY: 68 years-old with right upper neck pain and swelling. Trauma to head one month ago. R59.1-Generalized enlarged lymph [id number] COMPARISON: None. PROCEDURE COMMENTS: 3 mm axial images obtained from skull base to below beverly following administration of 90 mL Isovue 370. 3 mm coronal and sagittal reconstructions obtained. No BB marker placed to indicate site of abnormality. FINDINGS: No cervical or supraclavicular lymphadenopathy on either side. Superficial and deep fat planes are normal. Bilateral parotid and submandibular glands are normal. Thyroid lobes are narrow. No focal mass or cyst. Internal airway mucosal contours and attenuation are normal. Both carotid bifurcations have moderate to advanced atherosclerotic disease. Right carotid bifurcation and bulb extending into right retropharyngeal space creating a little more prominent internal convex convex margin of right posterior lateral pharynx. Inferior brain is normal. Sinuses are clear. Both anterior clinoid processes are partially pneumatized. Orbital soft tissues are unremarkable other than bilateral cataract surgery. Images through upper lungs show mild centrilobular emphysema and biapical either honeycombing or bleb. No focal mass or consolidation. Multilevel variable bilateral facet hypertrophy. C5-C6 has advanced degenerative change with near nhtz-sf-[id number] contact. Minor C5 retrolisthesis. No finding of subacute osseous trauma. Procedure Note Jeanine Gutierrez MD - 01/03/2024 CT SOFT TISSUE NECK W CONTRAST: 01/03/2024 2:29 PM CLINICAL HISTORY: 68 years-old with right upper neck pain and swelling.Trauma to head one month ago. R59.1-Generalized enlarged lymph [id number] COMPARISON: None. PROCEDURE COMMENTS: 3 mm axial images obtained from skull base to belowcarina following administration of 90 mL Isovue 370. 3 mm coronal and sagittal reconstructions obtained. No BB marker placed to indicate site ofabnormality. FINDINGS: No cervical or supraclavicular lymphadenopathy on either side. Superficialand deep fat planes are normal. Bilateral parotid and submandibular glandsare normal. Thyroid lobes are narrow. No focal mass or cyst. Internal airway mucosal contours and attenuation are normal. Bothcarotid bifurcations have moderate to advanced atherosclerotic disease. Rightcarotid bifurcation and bulb extending into right retropharyngeal space creatinga little more prominent internal convex convex margin of right posteriorlateral pharynx. Inferior brain is normal. Sinuses are clear. Both anterior clinoidprocesses are partially pneumatized. Orbital soft tissues are unremarkable other than bilateral cataract surgery. Images through upper lungs show mild centrilobular emphysema and biapicaleither honeycombing or bleb. No focal mass or consolidation. Multilevel variable bilateral facet hypertrophy. C5-C6 has advanceddegenerative change with near kqdt-[id number] contact. Minor C5 retrolisthesis. No findingof subacute osseous trauma. IMPRESSION: 1. No lymphadenopathy or other acute process. 2. Moderate to advanced bilateral carotid atherosclerotic calcification. 3. Cervical spondylosis. - - Note: Radiology results need to be interpreted within a comprehensiveclinical context. If you have questions about the radiology report, please contactthe office of the ordering clinician. Cherry Baca APRN IMG CT ORDERABLES Final Res ult * CT CHEST WO CONTRAST (01/03/2024 2:19 PM EDT) Only the most recent of2 resultswithin the time period is included. Anatomical Region Laterality Modality Chest Computed Tomogra phy 01/03/2024 2:19 PM EDT Impressions 01/03/2024 3:32 PM EDT 1. No acute finding in the chest. 2. Resolution of irregular nodular density left upper lobe seen on prior study. 3. Stable scattered micronodules measuring 3 mm or less. No further follow-up necessary. - Note: Radiology results need to be interpreted within a comprehensive clinical context. If you have questions about the radiology report, please contact the office of the ordering clinician. Narrative 01/03/2024 3:[address] CHEST WITHOUT CONTRAST, 01/03/2024 2:19 PM CLINICAL HISTORY: R91.1-Solitary pulmonary [id number]. COMPARISON: Prior studies dating back to 2020 most recent 01/23/2023 PROCEDURE COMMENTS: Multi-detector CT of the chest with multiplanar reconstructions per protocol. No contrast given. Dose 1 : CT DLP Total : 503.3 mGycm DLP Spiral Max : 503.3 mGycm Maximum CTDI Vol : 14.5 mGy SSDE : 16.82 mGy SSDE Diameter : 31.6 cm SSDE Source : [employer] FINDINGS: There are a few scattered micronodules measuring 3 mm or less which are stable. No enlarging nodules. Irregular nodular density left upper lobe seen on prior study resolved. Mild areas of scarring right middle lobe, lingula and both lower lobes unchanged. No new areas elevation. No endobronchial lesions. No abnormal hilar or mediastinal mass or adenopathy. No pericardial or pleural effusion. No pneumothorax. Visualized portions upper abdomen unremarkable. No suspicious bony lesions. Coronary artery calcification: Moderate. Procedure Note Clint Irene MD - 01/03/2024 CT CHEST WITHOUT CONTRAST, 01/03/2024 2:19 PM CLINICAL HISTORY: R91.1-Solitary pulmonary [id number]. COMPARISON: Prior studies dating back to 2019 most recent 01/23/2023 PROCEDURE COMMENTS: Multi-detector CT of the chest with multiplanar reconstructions per protocol. No contrast given. Dose 1 : CT DLP Total : 503.3 mGycm DLP Spiral Max : 503.3 mGycm Maximum CTDI Vol : 14.5 mGy SSDE : 16.82 mGy SSDE Diameter : 31.6 cm SSDE Source : [employer] FINDINGS: There are a few scattered micronodules measuring 3 mm or lesswhich are stable. No enlarging nodules. Irregular nodular density left upperlobe seen on prior study resolved. Mild areas of scarring right middle lobe, lingulaand both lower lobes unchanged. No new areas elevation. No endobronchiallesions. No abnormal hilar or mediastinal mass or adenopathy. No pericardial orpleural effusion. No pneumothorax. Visualized portions upper abdomen unremarkable. No suspicious bonylesions. Coronary artery calcification: Moderate. IMPRESSION: 1. No acute finding in the chest. 2. Resolution of irregular nodular density left upper lobe seen on priorstudy. 3. Stable scattered micronodules measuring 3 mm or less. No furtherfollow-up necessary. - Note: Radiology results need to be interpreted within a comprehensiveclinical context. If you have questions about the radiology report, please contactthe office of the ordering clinician. us Riley Hunter MD IMG CT ORDERABLES Final Res ult * CREATININE ISTAT (01/03/2024 2:15 PM EDT) [facility] Creatinine-iST AT 1.1 0.6 - 1.3 mg/dL 01/03/2024 2:19 PM EDT [facility] Blood BLOOD SPECIMEN / Unknown 01/03/2024 2:15 PM EDT 01/03/2024 2:19 PM EDT Cherry Baca [facility] POINT OF CARE TEST ORDERABL ES Final Result [facility] [address] [place] [address] * HCV RNA QUANT PCR (10/17/2023 2:07 PM EDT) [facility] HCV Quant (IU/mL) Not Detected IU/mL 10/18/2023 12:29 PM EDT [facility]REF[facility]ED [facility] HCV Quant (log IU/mL) Not Detected log IU/mL 10/18/2023 12:29 PM EDT [facility] HCV Quant Interp Not Detected Not Detected 10/18/2023 12:29 PM EDT [facility] Comment:A result of Not Det ected does not rule out the presence of inhibitors in the patient specimen or hepatitis C virus RNA concentrations below the level of detection of the test. Care should be taken when interpreting any single viral load determination. Blood VENOUS BLOOD / Unknown Venipuncture / Unknown 10/17/2023 2:07 PM EDT 10/17/2023 2:07 PM EDT Narrative PREFERRED [facility] - 10/18/2023 12:29 PM EDT The quantification range of this assay is 15 to 100,000,000 IU/mL (1.18 log to 8.00 log IU/mL). Testing was performed using the julieth HCV test ([employer] with the julieth [id number] System. Riley Hunter MD IMMUNOLOGY ORDERABLES Final Result Performing Organization Address City/[facility]/ZIP Co de Phone Number [id number] , [place] [address] * (ABNORMAL) ACUTE HEPATITIS PANEL (10/17/2023 2:07 PM EDT) Only the most recent of2 resultswithin the time period is included. Pathologist [facility] Hep Bs Ag Non-React will Non-React will 10/18/2023 12:30 AM EDT [facility] Hep B Core IgM Non-React will Non-React will 10/18/2023 12:30 AM EDT [facility] Hep A IgM Non-React will Non-React will 10/18/2023 12:30 AM EDT [facility] Hep C Ab Reactive( A) Non-React will 10/18/2023 12:30 AM EDT [facility] Comment:Weakly Reactive. Pre sumptive evidence of antibodies to HCV, however nonspecific (false positive) results may occur in this range. Supplemental confirmatory testing (HCV RNA QUANT) will be performed. Blood VENOUS BLOOD / Unknown Venipuncture / Unknown 10/17/2023 2:07 PM EDT 10/17/2023 2:07 PM EDT Riley Hunter MD CHEMISTRY ORDERABLES Final Result Performing Organization Address City/[facility] Co de Phone Number [id number] , [place] [address] * ANTINUCLEAR ANTIBODY SCREEN (10/17/2023 2:07 PM EDT) [facility] [place], IgG Negative Negative 10/18/2023 7:13 PM EDT [facility] Comment:[place] samples are scre ened using automated enzyme immunoassay. All samples that screen positive are then tested by the indirect immunofluorescence method. Blood VENOUS BLOOD / Unknown Venipuncture / Unknown 10/17/2023 2:07 PM EDT 10/17/2023 2:07 PM EDT us Riley Hunter MD IMMUNOLOGY ORDERABLES Final Result [facility] [address] [facility] , [place] [address] * US RIGHT UPPER QUADRANT (10/10/2023 9:33 AM EDT) Only the most recent of2 resultswithin the time period is included. Anatomical Region Laterality Modality Abdomen Ultrasound 10/10/2023 9:33 AM EDT Impressions 10/10/2023 11:06 AM EDT 1. Subtle outer nodular contour of the liver, raising the possibility of early cirrhosis. No focal hepatic mass identified by ultrasound. 2. Status post cholecystectomy. 3. No sonographic evidence of biliary ductal dilatation. - - Narrative 10/10/2023 11:06 AM EDT US RIGHT UPPER QUADRANT, 10/10/2023 9:33 AM CLINICAL HISTORY: R93.2-Abnormal findings on diagnostic imaging of liver and biliary vlwbz-EBM-83-CM. COMPARISON: Noncontrast CT from 09/27/2023 PROCEDURE COMMENTS: Ultrasound examination of the right upper quadrant performed by the technologist. Sent to PACS along with tech notes for radiologist review. FINDINGS: Gallbladder: Resected. Richards's sign: Not applicable Liver: Liver echogenicity is within normal limits. Right hepatic lobe is measured at 14.9 cm in length. There is a subtle outer nodular contour of the liver. No focal mass is identified within the visualized liver by ultrasound. Common bile duct: Measures 5 mm. (Normal is 6mm or less. If there has been cholecystectomy, normal is 10mm or less.) Pancreas: Visualized portions are unremarkable. Other: Right kidney non-hydronephrotic. Procedure Note Juan Salazar MD - 10/10/2023 US RIGHT UPPER QUADRANT, 10/10/2023 9:33 AM CLINICAL HISTORY: R93.2-Abnormal findings on diagnostic imaging of liverand biliary aklvh-AXX-68-CM. COMPARISON: Noncontrast CT from 09/27/2023 PROCEDURE COMMENTS: Ultrasound examination of the right upper quadrantperformed by the technologist. Sent to PACS along with tech notes for radiologistreview. FINDINGS: Gallbladder: Resected. Richards's sign: Not applicable Liver: Liver echogenicity is within normal limits. Right hepatic lobe is measured at 14.9 cm in length. There is a subtle outer nodular contour ofthe liver. No focal mass is identified within the visualized liver byultrasound. Common bile duct: Measures 5 mm. (Normal is 6mm or less. If there hasbeen cholecystectomy, normal is 10mm or less.) Pancreas: Visualized portions are unremarkable. Other: Right kidney non-hydronephrotic. IMPRESSION: 1. Subtle outer nodular contour of the liver, raising the possibility ofearly cirrhosis. No focal hepatic mass identified by ultrasound. 2. Status post cholecystectomy. 3. No sonographic evidence of biliary ductal dilatation. - - us Riley Hunter MD IMG US ORDERABLES Final Res ult * CT ABDOMEN PELVIS WO ORAL OR IV CONTRAST (09/27/2023 10:28 AM EDT) Anatomical Region Laterality Modality Abdomen, Pelvis Computed Tomogra phy 09/27/2023 10:2 8 AM EDT Impressions 09/27/2023 10:48 AM EDT No obstructive uropathy or other acute abnormality of the unenhanced abdomen or pelvis. Suspected cirrhosis. - Note: Radiology results need to be interpreted within a comprehensive clinical context. If you have questions about the radiology report, please contact the office of the ordering clinician. Narrative 09/27/2023 10:[address] ABDOMEN AND PELVIS WITHOUT IV OR ORAL CONTRAST, 09/27/2023 10:28 AM CLINICAL HISTORY: R31.0-Gross eopoepncd-SWD-89-CM. COMPARISON: None. PROCEDURE COMMENTS: Multidetector CT examination of the abdomen and pelvis without IV or oral contrast per protocol. Multiplanar reconstructions. Dose 1 : CT DLP Total : 619.5 mGycm DLP Spiral Max : 619.5 mGycm Maximum CTDI Vol : 18.3 mGy FINDINGS: LOWER THORAX: Lung bases unremarkable. ABDOMEN AND PELVIS: Liver suggests cirrhosis. No ascites. Liver, spleen, pancreas, and adrenal glands are otherwise unremarkable. No renal stone or significant renal contour abnormality. Unremarkable biliary system. Cholecystectomy. No bowel obstruction or acute inflammatory process. No evidence of appendicitis. Fatty atrophy of the right rectus abdominis muscle. No abnormal mass, fluid, or adenopathy in the pelvis. No acute osseous abnormality. Procedure Note Alphonse Rosa MD - 09/27/2023 CT ABDOMEN AND PELVIS WITHOUT IV OR ORAL CONTRAST, 09/27/2023 10:28 AM CLINICAL HISTORY: R31.0-Gross ppjbjszyt-GEN-33-CM. COMPARISON: None. PROCEDURE COMMENTS: Multidetector CT examination of the abdomen andpelvis without IV or oral contrast per protocol. Multiplanar reconstructions. Dose 1 : CT DLP Total : 619.5 mGycm DLP Spiral Max : 619.5 mGycm Maximum CTDI Vol : 18.3 mGy FINDINGS: LOWER THORAX: Lung bases unremarkable. ABDOMEN AND PELVIS: Liver suggests cirrhosis. No ascites. Liver, spleen, pancreas, and adrenal glands are otherwise unremarkable. No renal stoneor significant renal contour abnormality. Unremarkable biliary system. Cholecystectomy. No bowel obstruction or acute inflammatory process. No evidence ofappendicitis. Fatty atrophy of the right rectus abdominis muscle. No abnormal mass, fluid, or adenopathy in the pelvis. No acute osseous abnormality. IMPRESSION: No obstructive uropathy or other acute abnormality of the unenhancedabdomen or pelvis. Suspected cirrhosis. - Note: Radiology results need to be interpreted within a comprehensiveclinical context. If you have questions about the radiology report, please contactthe office of the ordering clinician. us Riley Hunter MD IMG CT ORDERABLES Final Res ult * XR KNEE RIGHT AP LATERAL AND AXIAL (09/16/2023 1:26 PM EDT) Anatomical Region Laterality Modality Knee Radiographic Sabine ging 09/16/2023 1:26 PM EDT Impressions 09/16/2023 2:01 PM EDT Question of loose bodies in the joint. Shallow patellofemoral sulcus with moderate patellofemoral osteoarthritis and suspected old osteochondral injury of the medial patellar facet - Note: Radiology results need to be interpreted within a comprehensive clinical context. If you have questions about the radiology report, please contact the office of the ordering clinician. Narrative 09/16/2023 2:01 PM EDT XR KNEE RIGHT AP LATERAL AND AXIAL, 09/16/2023 1:26 PM CLINICAL HISTORY: M25.561-Pain in right ioly-QXJ-36-CM G89.29-Other chronic hqxr-MLL-72-CM COMPARISON: None. PROCEDURE COMMENTS: XR KNEE RIGHT AP LATERAL AND AXIAL FINDINGS: No definite joint effusion Question of tiny loose bodies in the medial joint space posteriorly Moderate patellofemoral osteoarthritis. Shallow femoral sulcus and slight lateral subluxation of the patella. Question of a old osteochondral injury of the medial patellar facet which could be from a lateral patellar dislocation in the past but is not felt to be acute Procedure Note Jose Brown MD - 09/16/2023 XR KNEE RIGHT AP LATERAL AND AXIAL, 09/16/2023 1:26 PM CLINICAL HISTORY: M25.561-Pain in right myaw-UDR-67-CM G89.29-Other chronic bvun-FJQ-23-CM COMPARISON: None. PROCEDURE COMMENTS: XR KNEE RIGHT AP LATERAL AND AXIAL FINDINGS: No definite joint effusion Question of tiny loose bodies in the medial joint space posteriorly Moderate patellofemoral osteoarthritis. Shallow femoral sulcus andslight lateral subluxation of the patella. Question of a old osteochondral injuryof the medial patellar facet which could be from a lateral patellardislocation in the past but is not felt to be acute IMPRESSION: Question of loose bodies in the joint. Shallow patellofemoral sulcus with moderate patellofemoral osteoarthritis and suspected old osteochondral injury of the medial patellar facet - Note: Radiology results need to be interpreted within a comprehensiveclinical context. If you have questions about the radiology report, please contactthe office of the ordering clinician. Riley Hunter MD [facility] DIAGNOSTIC IMAGING ORDMarion MISTRY Final Result * (ABNORMAL) URINALYSIS (09/12/2023 1:48 PM EDT) UA Color [place] 09/12/2023 7:18 PM EDT [facility] UA Appear Cloudy(A) Clear 09/12/2023 7:18 PM EDT [facility] UA Glucose Negative Negative mg/dL 09/12/2023 7:18 PM EDT [facility] UA Ketones Negative Negative mg/dL 09/12/2023 7:18 PM EDT [facility] UA Blood 3+ (>= 1.0 mg/dL)(A) Negative 09/12/2023 7:18 PM EDT [facility] UA pH 6.0 5.0 - 8.0 pH 09/12/2023 7:18 PM EDT [facility] UA Protein 1+ (30-70 mg/dL)(A) Negative mg/dL 09/12/2023 7:18 PM EDT [facility] UA Urobilinogen Normal <=1 mg/dL 7:18 PM EDT [facility] UA Bili Negative Negative 09/12/2023 7:18 PM EDT [facility] UA Nitrite Negative Negative 09/12/2023 7:18 PM EDT [facility] UA Leuk Est Negative Negative 09/12/2023 7:18 PM EDT [facility] UA Spec Grav 1.021 1.001 - 1.035 no units 09/12/2023 7:18 PM EDT [facility] Comment:Reference range zac d for random specimens only. UA WBC 9(H) 0 - 4 /HPF 09/12/2023 7:18 PM EDT [facility] UA RBC >182(H) 0 - 3 /HPF 09/12/2023 7:18 PM EDT [facility] UA Squam Epi 2+ /LPF 09/12/2023 7:18 PM EDT [facility] UA Mucus Trace /LPF 09/12/2023 7:18 PM EDT [facility] UA Bacteria Trace(A) Negative /HPF 09/12/2023 7:18 PM EDT [facility] UA Yeast Present(A) None 09/12/2023 7:18 PM EDT [facility] Urine URINE SPECIMEN COLLECTION, CLEAN CATCH / Unknown 09/12/2023 1:48 PM EDT 09/12/2023 1:49 PM EDT Riley Hunter MD URINE ORDERABLES Final Resu lt Performing Organization Address [facility] Co de Phone Number [facility] [address] [facility] , [place] [address] * URINE CULTURE (NO STAIN) (09/12/2023 1:48 PM EDT) Culture No growth at 30 hours. 09/14/2023 6:20 AM EDT [facility] Urine URINE SPECIMEN COLLECTION, CLEAN CATCH / Unknown 09/12/2023 1:48 PM EDT 09/12/2023 1:48 PM EDT us Riley Hunter MD MICROBIOLOGY - GENERAL ORDE [facility] Final Result Performing Organization Address [facility] de Phone Number [facility] [address] [facility] , [place] [address] * (ABNORMAL) SEP URINALYSIS POC (09/12/2023 1:13 PM EDT) UA Color POC Brown Color 09/12/2023 1:15 PM EDT [facility] UA Appear POC Cloudy(A) Clear 09/12/2023 1:15 PM EDT [facility] UA Gluc POC Negative Negative mg/dL 09/12/2023 1:15 PM EDT [facility] UA Bili POC Negative Negative 09/12/2023 1:15 PM EDT [facility] UA Ketones POC Negative Negative mg/dL 09/12/2023 1:15 PM EDT [facility] UA SG POC >=1.030 1.001 - 1.035 no units 09/12/2023 1:15 PM EDT [facility] UA Blood POC Large(A) Negative 09/12/2023 1:15 PM EDT [facility] UA pH POC 5.5 5.0 - 8.0 pH 09/12/2023 1:15 PM EDT [facility] UA Protein POC 100(A) Negative mg/dL 09/12/2023 1:15 PM EDT [facility] UA Urobilinogen POC 0.2 0.2, 1.0 09/12/2023 1:15 PM EDT [facility] UA Nitrite POC Negative Negative 09/12/2023 1:15 PM EDT [facility] UA Leuk Est POC Negative Negative 1:15 PM EDT [facility] Urine URINE SPECIMEN COLLECTION / Unknown 09/12/2023 1:13 PM EDT 09/12/2023 1:15 PM EDT us Riley Hunter MD POINT OF CARE TEST ORDERABL ES Final Result [facility] [address] [place] [address] * CT LUNG CANCER SCREENING LOW DOSE (11/22/2022 4:22 PM EDT) Only the most recent of3 resultswithin the time period is included. Anatomical Region Laterality Modality Lung Computed Tomogra phy 11/22/2022 4:22 PM EDT Impressions 11/22/2022 6:01 PM EDT : 2 new indeterminate left upper lobe subsolid pulmonary nodules as described above which measure up to 2.2 cm. RECOMMENDATION: Nodule Rev A summary letter communicating these results will be mailed to the patient's address of record. - Note: Radiology results need to be interpreted within a comprehensive clinical context. If you have questions about the radiology report, please contact the office of the ordering clinician. [email or web address] Narrative 11/22/2022 6:[address] LUNG CANCER SCREENING LOW DOSE 11/22/2022 4:22 PM CLINICAL HISTORY: Asymptomatic patient meeting NCCN high risk criteria for lung screening. Z12.2-Encounter for screening for malignant neoplasm of respiratory bfttqj-TMS-50-CM Z87.891-Personal history of nicotine vljlhyvfpo-ICJ-81-CM. COMPARISON: 12/22/2020 PROCEDURE COMMENTS: Noncontrast, low-dose, multidetector CT chest per department protocol. Interactive 3-D postprocessing done by the reviewing physician on a [employer] workstation, using Maximum intensity projections (MIPS) and DwllrO LUNG CAD for improved lesion detection. Ruiz images archived to PACS. Dose 1 : CT DLP Total : 69.5 mGycm DLP Spiral Max : 69.5 mGycm Maximum CTDI Vol : 1.9 mGy SSDE : 2.318 mGy SSDE Diameter : 30.3 cm SSDE Source : [employer] FINDINGS: 0.9 x 0.5 cm partially solid nodule. Periphery anteriorly appears somewhat thickened. Questionable central cavitation or cystic component. New since 2020. Just inferiorly is a ill-defined 2.2 cm nodule with intermixed regions of groundglass and more solid appearing component and cystic foci. This is also new since 2020. Atelectasis and scarring in the bases. Emphysema. Heart and mediastinum unremarkable. Coronary artery calcification: Moderate. FOLLOW-UP CODE: Lung-RADS Category 4A: Suspicious finding. Findings for which additional diagnostic testing is recommended. Lung-RADS Modifier N/A: No Modifier Needed us Barbara Cowart MD IM CT ORDERABLES F inal Result * SCANNED RADIOLOGY REPORT (02/26/2022 3:18 PM EST) Only the most recent of3 resultswithin the time period is included. Anatomical Region Laterality Modality Cardiac Stress T esting 02/26/2022 3:18 PM EST us Unknown Provider IMG DIAGNOSTIC IMAGING ORDERABL ES Final Result * EC ECHOCARDIOGRAM COMPLETE W DOPPLER AND COLOR FLOW MAPPING (02/22/2022 2:17 PM EST) Ejection Fraction >70 PYRAMIS MITRAL REGURGITATION trace PYRAMIS AORTIC STENOSIS mild PYRAMIS LV DIASTOLIC PLAX 4.1 cm PYRAMIS Anatomical Region Laterality Modality Electrocardiogra phy 02/22/2022 1:21 PM EST Impressions 02/22/2022 2:39 PM EST Conclusions * Left ventricular function is hyperdynamic with an estimated ejection fraction of >70. * Right ventricular systolic function is normal. * There is trace mitral valve regurgitation. * There is trace tricuspid valve regurgitation. Narrative Procedure Note Derrick Savage MD - 02/22/2022 IMPRESSION Conclusions * Left ventricular function is hyperdynamic with an estimated ejection fraction of >70. * Right ventricular systolic function is normal. * There is trace mitral valve regurgitation. * There is trace tricuspid valve regurgitation. Derrick Savage MD [facility] ECHO ORDERABLES Final Result * NM MYOCARDIAL PERFUSION SPECT STRESS AND REST (02/22/2022 1:09 PM EST) Anatomical Region Laterality Modality Nuclear Medicine 02/22/2022 12:0 0 PM EST Impressions 02/22/2022 2:29 PM EST Conclusions * Myocardial perfusion imaging is normal. * No evidence of myocardial ischemia or infarction. * Ejection fraction is normal. Narrative Procedure Note Derrick Savage MD - 02/22/2022 IMPRESSION Conclusions * Myocardial perfusion imaging is normal. * No evidence of myocardial ischemia or infarction. * Ejection fraction is normal. Derrick Savage MD [facility] NM CARDIAC ORDERABLES Final Result * ST STRESS TEST LEXISCAN (02/22/2022 12:49 PM EST) Anatomical Region Laterality Modality Cardiac Stress T esting 02/22/2022 12:2 7 PM EST Impressions 02/22/2022 12:54 PM EST [place] Test Date: 2022-02-22 Pat Name: GRACE KU Department: DEPID Room: Gender: Male Double End Tenon Operator: SloanSabi miller : 1955 Requested By: DERRICK Holland Order Number: [id number] Marco MD: Keenan Suresh Interpretive Statements Stress Test Lexiscan Ordering Diagnosis: SOB Resting HR: 119 Peak HR: 124 Resting B/P: 182/95 Peak B/P: 176/87 1. Lexiscan 0.4 mg was given IV push at 30 seconds into protocol. 2. Lexiscan injection was done____with__x__without low level exercise. 3. Termination of test due to protocol completion. 4. Symptoms: lightheaded 5. Aminophylline given__x__no____yes:____mg IVP 6. Nuclear Imaging reported separately. Physician Interpretation Resting ECG: Sinus tachycardia with occasional PACs Arrhythmias: None Conclusion: Non-diagnostic for ischemia (Lexiscan stress) Electronically Signed On 02-22-2022 12:54:10 EST by Keenan Suresh Narrative Procedure Note Keenan Suresh MD - 02/22/2022 IMPRESSION [place] Mariusz Agustin Test Date: 2022-02-22 Pat Name: GRACE KU Department: DEPID Room: Gender: Male Double End [employer] Operator: Sabi Sloan : 1955 Requested By: DERRICK Holland Order Number: [id number] Reading MD: Keenan Suresh Interpretive Statements Stress Test Lexiscan Ordering Diagnosis: SOB Resting HR: 119 Peak HR: 124 Resting B/P: 182/95 Peak B/P: 176/87 1. Lexiscan 0.4 mg was given IV push at 30 seconds into protocol. 2. Lexiscan injection was done____with__x__without low level exercise. 3. Termination of test due to protocol completion. 4. Symptoms: lightheaded 5. Aminophylline given__x__no____yes:____mg IVP 6. Nuclear Imaging reported separately. PhysicianInterpretation Resting ECG: Sinus tachycardia with occasional PACs Arrhythmias: None Conclusion: Non-diagnostic for ischemia (Lexiscan stress) Electronically Signed On 02-22-2022 12:54:10 EST by Keenan Suresh us Derrick Savage MD IMG STRESS ORDERABLES Yashira l Result * POCT EKG (01/03/2022 1:33 PM EDT) Only the most recent of2 resultswithin the time period is included. 01/03/2022 1:33 PM EDT Impressions SEP OFFICE - 01/03/2022 1:57 PM EDT NSR LVH us Derrick Savage MD POINT OF CARE CARDIOLOGY F inal Result SE[facility] OFF[facility] * XR CHEST PA AND LATERAL (12/06/2021 1:18 PM EDT) Anatomical Region Laterality Modality Chest Radiographic Sabine ging 12/06/2021 1:18 PM EDT Impressions 12/06/2021 1:58 PM EDT No acute finding. Linear opacities left base, atelectasis versus scarring. - Note: Radiology results need to be interpreted within a comprehensive clinical context. If you have questions about the radiology report, please contact the office of the ordering clinician. Narrative 12/06/2021 1:58 PM EDT PA AND LATERAL CHEST X-RAY, 12/06/2021 1:18 PM CLINICAL HISTORY: R05.1-Acute euvus-APL-73-CM COMPARISON: 12/22/2020 PROCEDURE COMMENTS: Frontal and lateral views of the chest. FINDINGS: Heart size normal. Linear opacities left base, atelectasis versus scarring. No effusion or pneumothorax. Procedure Note Christopher Montague MD - 12/06/2021 PA AND LATERAL CHEST X-RAY, 12/06/2021 1:18 PM CLINICAL HISTORY: R05.1-Acute hysam-AIQ-82-CM COMPARISON: 12/22/2020 PROCEDURE COMMENTS: Frontal and lateral views of the chest. FINDINGS: Heart size normal. Linear opacities left base, atelectasis versus scarring. No effusion or pneumothorax. IMPRESSION: No acute finding. Linear opacities left base, atelectasis versus scarring. - Note: Radiology results need to be interpreted within a comprehensiveclinical context. If you have questions about the radiology report, please contactthe office of the ordering clinician. us Jennifer Onofre DO IMG DIAGNOSTIC IMAGING ORDER SANTIAGO Final Result * POCT ANAMARIA SARS ANTIGEN (12/06/2021 11:43 AM EDT) Only the most recent of2 resultswithin the time period is included. SARS Antigen Negative Negative SEP OFFICE Lot Number SEP OFFICE Expiration Date SEP OFFICE SeriAl # SEP OFFICE Control Line No YES/NO SEP OFFICE 12/06/2021 11:4 3 AM EDT Jennifer Onofre DO POINT OF CARE TEST ORDERABLE S Final Result SEP [facility] * POCT ANAMARIA INFLUENZA A/B (12/06/2021 11:39 AM EDT) Influenza A Antigen Negative Negative 12/06/2021 11:42 AM EDT [facility] Influenza B Antigen Negative Negative 12/06/2021 11:42 AM EDT [facility] Swab SPECIMEN FROM NASOPHARYNGEAL STRUCTURE / Unknown 12/06/2021 11:39 AM EDT 12/06/2021 11:42 AM EDT Jennifer Onofre DO POINT OF CARE TEST ORDERABLE S Final Result Performing Organization Address City/[facility] Co de Phone Number [facility] [address] [place] [address] * POCT INFLUENZA A/B (06/16/2021 2:12 PM EDT) Influenza A Ag neg SEP OFFICE Influenza B Ag neg SEP OFFICE Lot Number 0 SEP OFFICE Expiration Date 0 SEP OFFICE Flu Blue Control Line (positive internal control) Yes SEP OFFICE Clear Background (negative internal control) Yes Yes/No SEP OFFICE 06/16/2021 2:12 PM EDT Jose Pruitt MD POINT OF CARE TEST ORDERABLES Final Result SEP OFFICE * [facility] AAA SCREENING EXAM MEDICARE (12/30/2020 9:15 AM EDT) Anatomical Region Laterality Modality Abdomen Vascular Imaging 12/30/2020 8:51 AM EDT Impressions 12/30/2020 6:06 PM EDT CONCLUSIONS AAA screening exam. The abdominal aorta is normal in size with no evidence of atherosclerosis. Unable to clearly visualize the common iliac arteries due to bowel gas. Narrative Procedure Note Jose Morales Jr., MD - 12/30/2020 IMPRESSION CONCLUSIONS AAA screening exam. The abdominal aorta is normal in size with no evidence ofatherosclerosis. Unable to clearly visualize the common iliac arteries due to bowel gas. us Riley Hunter MD IMG VASCULAR ORDERABLES Fin al Result * VITAMIN B12/ FOLIC ACID (12/15/2019 2:41 PM EDT) Only the most recent of3 resultswithin the time period is included. Vitamin B12 490 232-1,245 pg/mL 12/15/2019 9:00 PM EDT [facility] Folate >16.00 >=4.50 ng/mL 12/15/2019 9:00 PM EDT [facility] Blood VENOUS BLOOD / Unknown Venipuncture / Unknown 12/15/2019 2:41 PM EDT 12/15/2019 2:43 PM EDT Narrative [facility] - 12/15/2019 9:00 PM EDT Ingestion of eli doses of biotin (>5 mg/day) taken within 8 hours of drawing blood sample can interfere with this immunoassay test. us Cherry Baca COW PUNCHER CHEMISTRY ORDERABLES Final Result [facility] 1 [facility] , [place] [address] * SCANNED RHYTHM STRIPS (04/23/2019 8:26 AM EST) Anatomical Region Laterality Modality Other 04/23/2019 8:26 AM EST us Unknown Unknown IMG ECG ORDERABLES Final Result * INTRAOP AIRWAY PLACEMENT (04/21/2019 2:09 PM EST) Narrative [facility] - 04/21/2019 2:09 PM EST Ed Scott CRNA 04/21/2019 2:10 PM Intraop Airway Placement: Induction type: IV Mask size: Standard adult Pre-Oxygenation: Standard Airway type: LMA Device size: 4 Secured by: Tape Placement verified: Auscultation and End tidal CO2 Condition: Atraumatic and Unchanged Insertion attempts: 1 Title: CANOE INSPECTOR FINAL us Emely Taveras MD [place] ANESTHESIA Final Resu lt [facility] [address] [place] [id number] * Peripheral Block by Anesthesia (04/21/2019 1:22 PM EST) Narrative [facility] - 04/21/2019 1:22 PM EST Emely Taveras MD 04/21/2019 1:24 PM Peripheral Block by Anesthesia Procedure Date/Time: 04/21/2019 1:20 PM Patient location during procedure: pre-op Reason for block: at surgeon's request and post-op pain management Staff and Pre-procedure checks Anesthesiologist: Emely Taveras MD Performed: anesthesiologist Preanesthetic Checklist: Allergies confirmed, Block plan confirmed, Necessary block equipment present, Supplemental O2 applied, if needed, Anticoagulant confirmed, Block site marked, Patient identified- 2 criteria, Surgical procedure consent verified, Aseptic technique used, Drug/solution labeled, Resuscitaion equipment available, NIGHAT recommended monitors applied, IV access functioning and Sedation given, if needed Immediate perianesthetic assessment completed: Yes Patient position: Prep: Patient Draped and Chloraprep Monitoring: Mental status assessed and O2 Sat Peripheral Block Block type: Supraclavicular Block Laterality: Right Injection technique: single-shot Pain pump: no pain pump placed Medication: 25ml, Bupivacaine 0.5% Needle Needle type: Stimuplex Needle gauge: 22 G Needle length: 2 in (50mm) Nerve localization: nerve stimulation, ultrasound guidance and anatomical landmarks (Supraclavicular block- Anterior Scalene and Middle Scalene muscles, 1st rib and pleura, Brachial plexus (upper, middle and lower trunk) and Subclavian artery are identified; the tip of the needle and the spread of the local anesthetic around the brachial plexus are visualized.) Stimulator mA: 0.3 Ultrasound probe: linear Ultrasound needle approach: in-plane Test dose: negative Assessment Block success: complete Events: Uneventful Heart rate change: no Blood aspirated: yes (Needle pulled and reinserted) Paresthesia pain: absent Resistance on injection: normal Intermittent incremental injection LA at 5ml LA surrounding nerve by ultrasonographc visualization us Emely Taveras MD ANESTHESIA ORDERABLES Yashira beverly Result [facility] [address] [place] [address] * EK EKG 12 LEAD (04/21/2019 11:30 AM EST) Anatomical Region Laterality Modality Electrocardiogra phy 04/21/2019 11:3 6 AM EST Impressions 04/22/2019 2:[address] [facility] [facility] Test Date: 2019-04-21 Pat Name: GRACE KU Department: DEPID Room: [facility] Gender: Male Double End Tenon Operator: LATISHA : 1955 Requested By: COLTON MARTIN Order Number: [id number] Reading MD: Sean Atkinson MD Measurements Intervals Shirley Rate: 104 P: 81 [place]: 166 QRS: 53 QRSD: 82 T: 61 QT: 324 QTc: 401 Interpretive Statements Sinus tachycardia Normal ECG except for rate NO PRIOR ECG FOR COMPARISON Electronically Signed On 04-22-2019 14:54:29 EST by Sean Atkinson MD Narrative Procedure Note Babatunde Atkinson MD - 04/22/[address] [facility] Test Date: 2019-04-21 Pat Name: GRACE KU Department: DEPID Room: [facility] Gender: Male Double End [employer] Operator: LATISHA : 1955 Requested By: COLTON MARTIN Order Number: [id number] Reading MD: Sean Atkinson MD Measurements Intervals Shirley Rate: 104 P: 81 [place]: 166 QRS: 53 QRSD: 82 T: 61 QT: 324 QTc: 401 Interpretive Statements Sinus tachycardia Normal ECG except for rate NO PRIOR ECG FOR COMPARISON Electronically Signed On 04-22-2019 14:54:29 EST by Sean Atkinson MD us Colton Wooten MD IMG ECG ORDERABLES Final Result * BB HISTORY CHECK (02/23/2019 11:37 AM EST) Pathologist [facility] BB HISTORY CHECK (1) No Previous History 02/23/2019 3:40 PM EST [facility] Blood VENOUS BLOOD / Unknown Venipuncture / Unknown 02/23/2019 11:37 AM EST 02/23/2019 11:37 AM EST us Jose Pruitt MD BLOOD BANK ORDERABLES Final Re sult Performing Organization Address City/[facility]/ZIP Co de Phone Number [facility] [address] [place], [place] [id number] * TSH REFLEX (02/23/2019 11:37 AM EST) [facility] TSH Reflex 0.567 0.270 - 4.200 mcIU/mL 02/23/2019 5:05 PM EST [facility] Blood VENOUS BLOOD / Unknown Venipuncture / Unknown 02/23/2019 11:37 AM EST 02/23/2019 11:37 AM EST Narrative [facility] - 02/23/2019 5:05 PM EST Ingestion of eli doses of biotin (>5 mg/day) taken within 8 hours of drawing blood sample can interfere with this immunoassay test. us Jose Pruitt MD CHEMISTRY ORDERABLES Final Res ult [facility] 1 [facility], [place] [address] * (ABNORMAL) CBC (02/23/2019 11:37 AM EST) Only the most recent of2 resultswithin the time period is included. [facility] WBC 6.1 3.7 - 10.3 x10(3)/mcL 02/23/2019 3:40 PM EST [facility] RBC 4.32(L) 4.60 - 6.10 x10(6)/mcL 02/23/2019 3:40 PM EST [facility] Hgb 14.1 13.7 - 17.5 g/dL 02/23/2019 3:40 PM EST [facility] Hct 42.7 40.0 - 51.0 % 02/23/2019 3:40 PM EST [facility] MCV 98.8 80.0 - 100.0 fL 02/23/2019 3:40 PM EST [facility] MCH 32.6 26.0 - 34.0 pg 02/23/2019 3:40 PM EST [facility] MCHC 33.0 30.7 - 35.5 g/dL 02/23/2019 3:40 PM EST [facility] RDW 13.1 <=14.9 % 02/23/2019 3:40 PM EST [facility] Platelet 235 155 - 369 x10(3)/mcL 02/23/2019 3:40 PM EST [facility] MPV 10.2 8.8 - 12.5 fL 02/23/2019 3:40 PM EST [facility] Blood VENOUS BLOOD / Unknown Venipuncture / Unknown 02/23/2019 11:37 AM EST 02/23/2019 11:37 AM EST Jose Pruitt MD HEMATOLOGY ORDERABLES Final Re sult [facility] 1 [facility], [place] [address] * ABORH (02/23/2019 11:37 AM EST) ABORH Int O POS 02/23/2019 4:0 3 PM EST [facility] Blood VENOUS BLOOD / Unknown Venipuncture / Unknown 02/23/2019 11:37 AM EST 02/23/2019 11:37 AM EST Jose Pruitt MD BLOOD BANK ORDERABLES Final Re sult [facility] [address] [place] [address] * HEMOGLOBIN A1C (02/23/2019 11:37 AM EST) Only the most recent of2 resultswithin the time period is included. Hgb A1C 5.2 4.2 - 5.6 % 02/23/2019 4:04 PM EST [facility] Est. Avg Glucose 103 mg/dL 02/23/2019 4:04 PM EST [facility] Blood VENOUS BLOOD / Unknown Venipuncture / Unknown 02/23/2019 11:37 AM EST 02/23/2019 11:37 AM EST Narrative [facility] - 02/23/2019 4:04 PM EST REFERENCE RANGE: Normal: 4.0-5.6% Pre-diabetes: 5.7-6.4% Provisional diagnosis of diabetes: >6.4% Hgb F>10% and anything which shortens red cell survival, such as hemolytic anemia, or unstable hemoglobin variants such as HbSS, HbSC, or HbCC, will lower the HbA1c value associated with a given level of glycemic control. us Jose Pruitt MD CHEMISTRY ORDERABLES Final Res ult [facility] 1 [facility] , [place] [address] * (ABNORMAL) LIPID SCREEN (02/23/2019 11:37 AM EST) Only the most recent of3 resultswithin the time period is included. Pathologist [facility] Cholesterol 177 <=200 mg/dL 02/23/2019 5:05 PM EST [facility] Comment: < 200 Desirable 200 - 239 Borderline High >= 240 High Triglyceride 396(H) <=150 mg/dL 02/23/2019 5:05 PM EST [facility] Comment: < 150 Normal 150 - 199 Borderline High 200 - 499 High >= 500 Very High HDL 59 >=40 mg/dL 02/23/2019 5:05 PM EST [facility] Comment: > 60 Optimal 40 - 60 Acceptable < 40 Low LDL Calculated 39 <=100 mg/dL 02/23/2019 5:05 PM EST [facility] Comment: < 100 Optimal 100 - 129 Near or above optimal 130 - 159 Borderline High 160 - 189 High >= 190 Very High Non-HDL-C Calculated 118 <=129 mg/dL 02/23/2019 5:05 PM EST [facility] Comment: <130 Desirable 130-159 Above Desirable 160-189 Borderline High 190-219 High >= 220 Very High Fasting Specimen? Yes None 019 5:05 PM EST [facility] Blood VENOUS BLOOD / Unknown Venipuncture / Unknown 02/23/2019 11:37 AM EST 02/23/2019 11:37 AM EST us Jose Pruitt MD CHEMISTRY ORDERABLES Final Res ult [facility] 1 [facility] , [place] [address] * XR FOOT RIGHT AP LATERAL AND OBLIQUE (06/19/2018 2:46 PM EDT) Anatomical Region Laterality Modality Foot Radiographic Sabine ging 06/19/2018 2:46 PM EDT Impressions 06/19/2018 3:02 PM EDT No acute findings. Narrative 06/19/2018 3:02 PM EDT CLINICAL HISTORY: M79.671-Pain in right [id number]-CM. COMPARISON: None. TECHNIQUE: XR FOOT RIGHT AP LATERAL AND OBLIQUE on 06/19/2018 2:46 PM FINDINGS: The bone mineralization is normal. There is no fracture. The joint spaces are well maintained with normal alignment. There are no degenerative changes. The soft tissues are unremarkable. Procedure Note Elie Milton MD - 06/19/2018 CLINICAL HISTORY: M79.671-Pain in right [id number]-[id number]-46-CM. COMPARISON: None. TECHNIQUE: XR FOOT RIGHT AP LATERAL AND OBLIQUE on 06/19/2018 2:46 PM FINDINGS: The bone mineralization is normal. There is no fracture. Thejoint spaces are well maintained with normal alignment. There are nodegenerative changes. The soft tissues are unremarkable. IMPRESSION: No acute findings. us Riley Hunter MD IMG DIAGNOSTIC IMAGING RUDDY MISTRY Final Result * MRI CERVICAL SPINE WO CONTRAST (08/21/2017 5:09 PM EDT) Anatomical Region Laterality Modality C-spine Magnetic Resonan ce 08/21/2017 5:09 PM EDT Impressions 08/22/2017 9:16 AM EDT Multilevel alignment changes as discussed above, most notable at C5-C6. Multilevel discogenic endplate spurring and areas of neural foraminal stenosis. The neural foraminal stenosis is most severe at left C4-C5 and bilaterally at C5-C6. Narrative 08/22/2017 9:16 AM EDT MR CERVICAL SPINE WITHOUT CONTRAST, 08/21/2017 5:09 PM CLINICAL HISTORY: M54.6-Fspqswfxmja-MKQ-10-CM COMPARISON: Cervical spine x-rays from 08/22/2015 PROCEDURE COMMENTS: Multiplanar multiecho MR imaging of the cervical spine per protocol. FINDINGS: 1 mm retrolisthesis of C3 on C4. 1 mm anterolisthesis C4-C5. 2 to 3 mm retrolisthesis C5-C6. Remaining alignment normal. Reactive endplate marrow changes are seen through the spine most notable at C5-C6. No intrinsic abnormality of cervical cord or cerebellar tonsils noted. Ruiz findings by level include: C2/C3: Unremarkable. C3/C4: Mild discogenic endplate changes are seen with mild bilateral neural foraminal narrowing. No focal protrusion. Central canal patent. C4/C5: Widely patent central canal. Minimal right neural foraminal narrowing. Moderate to severe left neural foraminal narrowing. C5/C6: Discogenic changes associated with retrolisthesis as noted above. There is moderate bilateral neural foraminal narrowing. No focal protrusion. C6/C7: Mild discogenic endplate spurring with mild bilateral neural foraminal narrowing. C7/T1: Unremarkable. Procedure Note Cory Sanchez MD - 08/22/2017 MR CERVICAL SPINE WITHOUT CONTRAST, 08/21/2017 5:09 PM CLINICAL HISTORY: M54.5-Yfslbrvvbgp-BXE-10-CM COMPARISON: Cervical spine x-rays from 08/22/2015 PROCEDURE COMMENTS: Multiplanar multiecho MR imaging of the cervical spineper protocol. FINDINGS: 1 mm retrolisthesis of C3 on C4. 1 mm anterolisthesis C4-C5. 2 to 3 mm retrolisthesis C5-C6. Remaining alignment normal. Reactive endplatemarrow changes are seen through the spine most notable at C5-C6. No intrinsic abnormality of cervical cord or cerebellar tonsils noted. Ruiz findings by level include: C2/C3: Unremarkable. C3/C4: Mild discogenic endplate changes are seen with mild bilateralneural foraminal narrowing. No focal protrusion. Central canal patent. C4/C5: Widely patent central canal. Minimal right neural foraminalnarrowing. Moderate to severe left neural foraminal narrowing. C5/C6: Discogenic changes associated with retrolisthesis as noted above.There is moderate bilateral neural foraminal narrowing. No focal protrusion. C6/C7: Mild discogenic endplate spurring with mild bilateral neuralforaminal narrowing. C7/T1: Unremarkable. IMPRESSION: Multilevel alignment changes as discussed above, most notable at C5-C6. Multilevel discogenic endplate spurring and areas of neuralforaminal stenosis. The neural foraminal stenosis is most severe at left C4-C5 and bilaterally at C5-C6. us Grace Cormier MD IMG MRI ORDERABLES Final Resu lt * XR CERVICAL SPINE AP LATERAL FLEXION EXTENSION (08/21/2017 4:23 PM EDT) Anatomical Region Laterality Modality C-spine Radiographic Sabine ging 08/21/2017 4:23 PM EDT Impressions 08/21/2017 4:57 PM EDT 1. Moderate to advanced degenerative disc disease C5-C6 with maximal C5 retrolisthesis of 3 mm in neutral position, and 2 mm in both flexion and extension states. Narrative 08/21/2017 4:57 PM EDT AP, LATERAL C-SPINE WITH FLEX/EXT VIEWS, 08/21/2017 4:23 PM CLINICAL HISTORY: M54.1-Lmdmfdbfwsn-THZ-10-CM COMPARISON: 07/19/2017 PROCEDURE COMMENTS: AP and lateral views of the cervical spine with lateral flexion and extension views. FINDINGS: In neutral position, there is 3 mm degenerative retrolisthesis of C5 with respect C6. C5-C6 disc space has advanced narrowing with mild endplate spurring. On flexion, spine becomes more straight. On both flexion and extension, the C5 retrolisthesis measures 2 mm. C7-T1 alignment is not well assessed on lateral images due to underpenetration and overlying soft tissue structures. Calcified carotid bifurcation atherosclerotic disease noted bilaterally. Procedure Note Jeanine Gutierrez MD - 08/21/2017 AP, LATERAL C-SPINE WITH FLEX/EXT VIEWS, 08/21/2017 4:23 PM CLINICAL HISTORY: M54.2-Lmoxaeecggj-UMY-10-CM COMPARISON: 07/19/2017 PROCEDURE COMMENTS: AP and lateral views of the cervical spine withlateral flexion and extension views. FINDINGS: In neutral position, there is 3 mm degenerative retrolisthesis of C5with respect C6. C5-C6 disc space has advanced narrowing with mild endplatespurring. On flexion, spine becomes more straight. On both flexion and extension,the C5 retrolisthesis measures 2 mm. C7-T1 alignment is not well assessed on lateral images due tounderpenetration and overlying soft tissue structures. Calcified carotid bifurcation atherosclerotic disease noted bilaterally. IMPRESSION: 1. Moderate to advanced degenerative disc disease C5-C6 with maximal C5 retrolisthesis of 3 mm in neutral position, and 2 mm in both flexion and extension states. us Grace Cormier MD IMG DIAGNOSTIC IMAGING ORDERA BLES Final Result * XR CERVICAL SPINE AP LATERAL ODONTOID AND OBLIQUE (07/19/2017 11:13 AM EDT) Anatomical Region Laterality Modality C-spine Radiographic Sabine ging 07/19/2017 11:1 3 AM EDT Impressions 07/19/2017 1:40 PM EDT Moderate discogenic change C5-6. Narrative 07/19/2017 1:40 PM EDT C-SPINE SERIES, 07/19/2017 11:13 AM CLINICAL HISTORY: M54.1-Dpjajqkoegy-XOJ-10-CM COMPARISON: None. PROCEDURE COMMENTS: 5 views of the cervical spine, including PA, lateral, odontoid, and bilateral oblique positioning. FINDINGS: Vertebral height and alignment anatomic. No fracture. No destructive lesion. Moderate disc space narrowing and spurring C5-6 with bilateral foraminal narrowing. Other disc spaces preserved. Prevertebral soft tissues normal. Prominent left carotid calcification noted. Procedure Note Clint Irene MD - 07/19/2017 C-SPINE SERIES, 07/19/2017 11:13 AM CLINICAL HISTORY: M54.1-Ovfohthpjrq-CLU-10-CM COMPARISON: None. PROCEDURE COMMENTS: 5 views of the cervical spine, including PA,lateral, odontoid, and bilateral oblique positioning. FINDINGS: Vertebral height and alignment anatomic. No fracture. No destructivelesion. Moderate disc space narrowing and spurring C5-6 with bilateral foraminal narrowing. Other disc spaces preserved. Prevertebral soft tissues normal. Prominent left carotid calcificationnoted. IMPRESSION: Moderate discogenic change C5-6. Riley Hunter MD IMG DIAGNOSTIC IMAGING ORDMarion SIMONRADHA Final Result * MRI HAND RIGHT WO CONTRAST (07/03/2017 4:52 PM EDT) Anatomical Region Laterality Modality Hand Magnetic Resonan ce 07/03/2017 4:52 PM EDT Impressions 07/04/2017 8:45 AM EDT 1. Chronic appearing high-grade tear of the scapholunate ligament, dorsal fibers. Slight widening of the scapholunate interval. Degenerative changes about the radiocarpal articulation favor developing scapholunate advanced collapse. 2. Mild positive ulnar variance, with pattern of edema suggestive of ulnar abutment syndrome. 3. Tearing at the radial fibers of the triangle fibrocartilage. . Narrative 07/04/2017 8:45 AM EDT MRI HAND RIGHT WO CONTRAST, 07/03/2017 4:52 PM CLINICAL HISTORY: M79.641-Pain in right [id number]-[id number]-17-CM COMPARISON: X-ray June 21, 2017. PROCEDURE COMMENTS: Multiplanar multiecho MR imaging of the region of interest. No contrast given. FINDINGS: TFCC AND LIGAMENTS: There is a tear through the radial fibers of the articular disc. The styloid and foveal attachments are intact as are the dorsal and volar radioulnar ligaments. Chronic appearing high-grade tear involving the dorsal fibers of the scapholunate ligament. Lunotriquetral ligament is intact. TENDONS: The flexor tendons are normal. There is mild tenosynovitis within the 2nd extensor compartment without tear. Evaluation of the distal 1st extensor compartment is somewhat limited due to the presence of a subcutaneous metallic foreign body contributing to significant dephasing artifact. ARTICULATIONS: High-grade chondral loss at the radiocarpal articulation, most significant at the radial side of the joint. Subchondral cystic change and marrow edema noted. There is a 1 to 2 mm positive ulnar variance with cystic change along the ulnar aspect of the lunate and radial aspect of the distal ulna. OTHER: There is no fracture. There is a trace radiocarpal joint effusion. Procedure Note Rafael Ordoñez MD - 07/04/2017 MRI HAND RIGHT WO CONTRAST, 07/03/2017 4:52 PM CLINICAL HISTORY: M79.641-Pain in right [id number]-MWM-07-CM COMPARISON: X-ray June 21, 2017. PROCEDURE COMMENTS: Multiplanar multiecho MR imaging of the region ofinterest. No contrast given. FINDINGS: TFCC AND LIGAMENTS: There is a tear through the radial fibers of thearticular disc. The styloid and foveal attachments are intact as are the dorsal andvolar radioulnar ligaments. Chronic appearing high-grade tear involving the dorsal fibers of the scapholunate ligament. Lunotriquetral ligament is intact. TENDONS: The flexor tendons are normal. There is mild tenosynovitis withinthe 2nd extensor compartment without tear. Evaluation of the distal 1stextensor compartment is somewhat limited due to the presence of a subcutaneousmetallic foreign body contributing to significant dephasing artifact. ARTICULATIONS: High-grade chondral loss at the radiocarpal articulation,most significant at the radial side of the joint. Subchondral cystic changeand marrow edema noted. There is a 1 to 2 mm positive ulnar variance withcystic change along the ulnar aspect of the lunate and radial aspect of thedistal ulna. OTHER: There is no fracture. There is a trace radiocarpal jointeffusion. IMPRESSION: 1. Chronic appearing high-grade tear of the scapholunate ligament,dorsal fibers. Slight widening of the scapholunate interval. Degenerative changesabout the radiocarpal articulation favor developing scapholunate advancedcollapse. 2. Mild positive ulnar variance, with pattern of edema suggestive ofulnar abutment syndrome. 3. Tearing at the radial fibers of the triangle fibrocartilage. . us Barbara Cowart MD IMG MRI ORDERABLES Final Result * XR WRIST RIGHT PA LATERAL AND OBLIQUE (06/21/2017 12:12 PM EDT) Only the most recent of2 resultswithin the time period is included. Anatomical Region Laterality Modality Wrist Radiographic Sabine ging 06/21/2017 12:1 2 PM EDT Impressions 06/21/2017 12:19 PM EDT Degenerative narrowing of both the triscaphe joint, and radiocarpal joints with progression compared to the previous exam. Widened scapholunate space suggesting ligamentous disruption. No dislocation, or fracture. 2 mm metallic foreign body soft tissues of thenar eminence, unchanged. Narrative 06/21/2017 12:19 PM EDT XR WRIST RIGHT PA LATERAL AND OBLIQUE, 06/21/2017 12:12 PM Clinical History: 62 years Male Z87.39-Personal history of other diseases of the musculoskeletal system and connective [id number]-ICA-90-CM Comparison: April 02, 2013 PROCEDURE COMMENTS: 4 views of the wrist, with PA, lateral, and bilateral oblique imaging. Procedure Note Elie Morales MD - 06/21/2017 XR WRIST RIGHT PA LATERAL AND OBLIQUE, 06/21/2017 12:12 PM Clinical History: 62 years Male Z87.39-Personal history of otherdiseases of the musculoskeletal system and connective [id number]-CM Comparison: April 02, 2013 PROCEDURE COMMENTS: 4 views of the wrist, with PA, lateral, andbilateral oblique imaging. IMPRESSION: Degenerative narrowing of both the triscaphe joint, and radiocarpal joints with progression compared to the previous exam. Widenedscapholunate space suggesting ligamentous disruption. No dislocation, or fracture. 2mm metallic foreign body soft tissues of thenar eminence, unchanged. us Barbara Cowart MD IMG DIAGNOSTIC IMAG ING ORDERABLES Final Result * HCV RNA QUANT, REAL TIME PCR, W/RFLX TO GENOTYPE -REF LAB (06/19/2017 8:26 AM EDT) HCV log10 <1.2 log IU 06/21/2017 8:52 PM EDT [employer] Comment: *Hepatitis C Virus by Quantitative PCR result was less than 3.6 log IU/mL (4000 IU/mL); therefore no further testing added. INTERPRETIVE INFORMATION: Hepatitis C Virus by Quantitative PCR The quantitative range of this assay is 1.2 - 8.0 log IU/mL (15- 100,000,000 IU/mL). Limit of detection (LOD): 15 IU/mL (1.2 log IU/mL) LOD values do not apply to diluted specimens. An interpretation of Not Detected does not rule out the presence of PCR inhibitors in the patient specimen or hepatitis C virus RNA concentrations below the level of detection of the test. Care should be taken when interpreting any single viral load determination. This test should not be used for blood donor screening, associated re-entry protocols, or for screening Human Cell, Tissues and Cellular Tissue-Based Products (HCT/P). HCV IU <15 IU/mL 06/21/2017 8:52 PM EDT [email or web address] HCV RNA Interpretation Not Detected Not Detected 06/21/2017 8:52 PM EDT [email or web address] EER HCV RNA Qnt w/Genotype Ref See Note 06/21/2017 8:52 PM EDT [email or web address] Comment: Access [employer] Enhanced Report using either link below: -Direct access: [email or web address] -Enter Username, Password: [email or web address] Username: [email or web address] Password: [email or web address] Performed by [employer], [address] [place] [address] [id number] [email or web address], Jas Wei MD, Lab. Director Blood Venipuncture / Unknown 06/19/2017 8:26 AM EDT 06/19/2017 8:26 AM EDT us Barbara Cowart MD IMMUNOLOGY ORDERABL ES Final Result [facility] [address] [place] [address] [id number] * URIC ACID (06/19/2017 8:26 AM EDT) Uric Acid 4.5 3.4 - 7.0 mg/dL 06/19/2017 4:27 PM EDT [facility] Blood Venipuncture / Unknown 06/19/2017 8:26 AM EDT 06/19/2017 8:26 AM EDT Barbara Cowart MD CHEMISTRY ORDERABLE S Final Result Performing Organization Address City/[facility] Co de Phone Number [facility] [address] [place] [address] * THYROID STIMULATING HORMONE (06/19/2017 8:26 AM EDT) Only the most recent of2 resultswithin the time period is included. [facility] TSH 1.120 0.270 - 4.200 mcIU/mL 06/19/2017 4:27 PM EDT [facility] Blood Venipuncture / Unknown 06/19/2017 8:26 AM EDT 06/19/2017 8:26 AM EDT Barbara Cowart MD CHEMISTRY ORDERABLE S Final Result Performing Organization Address [facility] de Phone Number [facility] [address] [place] [id number] * HCV GENOTYPE BY PCR AND SEQUENCING -REF LAB (05/10/2015 1:41 PM EST) [facility] HCV Genotyping by PCR & Sequencing Indeterminate [employer] Comment: Hepatitis C GENOTYPING IS INDETERMINATE. This test may be unsuccessful if the plasma HCV RNA viral load is less than log 3.6 or 4000 IU per mL of plasma. Repeat testing may be appropriate if and when the viral load becomes greater than log 3.6 or 4000 IU/mL. In addition to low viral load, other conditions, such as PCR inhibitors, viral genetic variation, etc., may cause RT-PCR failure resulting in an indeterminate result. INTERPRETIVE INFORMATION: Hepatitis C Genotyping Hepatitis C Viral RNA is tested using reverse respite worker polymerase chain reaction (RT-PCR) to amplify a specific portion of the 5' untranslated region (5' UTR) of the viral genome. The amplified nucleic acid is sequenced bi-directionally using dye-terminator chemistry ([employer]). Sequencing data is compared to a database of characterized sequences. Isolates of hepatitis C virus are grouped into six major genotypes (1-6). These genotypes are subtyped according to sequence characteristics. Due to high conservation of the 5' un-translated region of the HCV genome, this test has limitations in differentiating subtype 1a from 1b. Therefore, these subtypes will be reported as 1a or 1b. In rare instances, Type 6 virus may be misclassified as Type 1. Test developed and characteristics determined by [employer]. See Compliance Statement B: [employer]ae[employer]/CS Blood specimen (specimen) UPPER LIMB STRUCTURE / Unknown 05/10/2015 1:41 PM EST 05/10/2015 9:42 PM EST us Ryan Villarreal DO IMMUNOLOGY ORDERABLES Fin al Result [facility] [address] [place], [place] [id number] * HCV RNA QUANT, REAL-TIME PCR -REF LAB (05/10/2015 1:41 PM EST) Hepatitis C RNA <1.2 log IU [employer] Comment: INTERPRETIVE INFORMATION: Hepatitis C Virus by Quantitative PCR The quantitative range of this assay is 1.2 - 8.0 log IU/mL (15- 100,000,000 IU/mL). Limit of detection (LOD): 15 IU/mL (1.2 log IU/mL) LOD values do not apply to diluted specimens. An interpretation of Not Detected does not rule out the presence of PCR inhibitors in the patient specimen or hepatitis C virus RNA concentrations below the level of detection of the test. Care should be taken when interpreting any single viral load determination. This test should not be used for blood donor screening, associated re-entry protocols, or for screening Human Cell, Tissues and Cellular Tissue-Based Products (HCT/P). HCV IU <15 IU/mL [employer] HCV RNA Interpretation Not Detected Not Detected [employer] EER HCV RNA Quant RT-PCR See Note [employer] Comment: To download an enhanced report for this test go to: [email or web address] [email or web address] [email or web address] Blood specimen (specimen) UPPER LIMB STRUCTURE / Unknown 05/10/2015 1:41 PM EST 05/10/2015 9:42 PM EST Ryan Villarreal DO IMMUNOLOGY ORDERABLES Fin al Result [facility] [address] [place] [address] * T4, FREE (THYROXINE) (04/18/2015 4:00 PM EST) Free T4 1.01 0.93 - 1.70 ng/dL [facility] Blood specimen (specimen) UPPER LIMB STRUCTURE / Unknown 04/18/2015 4:00 PM EST 04/18/2015 8:45 PM EST Amanda Veronica COW PUNCHER CHEMISTRY ORDERABLES Yashira l Result Performing Organization Address City/[facility]/ZIP Co de Phone Number [facility] [address] [place] [address] * XR PELVIS (04/02/2013 9:13 AM EST) Anatomical Region Laterality Modality Pelvis Radiographic Sabine ging 04/02/2013 8:54 AM EST Impressions 04/02/2013 11:30 AM EST IMPRESSION: No fracture. No dislocation. Narrative 04/02/2013 11:30 AM EST Pelvis single view INDICATION: Pain. Procedure Note Amor Valdez MD - 04/02/2013 Pelvis single view INDICATION: Pain. IMPRESSION: No fracture. No dislocation. Ryan Cadena MD IMG DIAGNOSTIC IMAGING ORDERABL ES Final Result * XR WRIST LEFT PA LATERAL AND OBLIQUE (04/02/2013 9:13 AM EST) Anatomical Region Laterality Modality Wrist Radiographic Sabine ging 04/02/2013 8:54 AM EST Impressions 04/02/2013 10:20 AM EST IMPRESSION: Prior examination for comparison. There is evidence of prior remote trauma to the ulnar styloid process. No definite acute fracture. No dislocations. Mild degenerative change at the radiocarpal joint. Narrative 04/02/2013 10:20 AM EST Left wrist 4 views INDICATION: Pain. Procedure Note Amor Valdez MD - 04/02/2013 Left wrist 4 views INDICATION: Pain. IMPRESSION: Prior examination for comparison. There is evidence of prior remote trauma to the ulnar styloid process. Nodefinite acute fracture. No dislocations. Mild degenerative change at the radiocarpaljoint. us Ryan Cadena MD IMG DIAGNOSTIC IMAGING ORDERABL ES Final Result * (ABNORMAL) HEPATIC FUNCTION PANEL (04/02/2013 8:53 AM EST) Pathologist [facility] Total Protein 7.4 6.0 - 8.2 gm/dL [facility] Albumin 4.0 3.6 - 4.7 gm/dL [facility] Bili Direct 0.0 0.0 - 0.4 mg/dL [facility] Bili Total 0.4 0.1 - 1.4 mg/dL [facility] AST 67(H) 16 - 55 IU/L [facility] ALT 74(H) 6 - 72 IU/L [facility] Alk Phos 101 41 - 119 IU/L [facility] Blood specimen (specimen) UPPER LIMB STRUCTURE / Unknown 04/02/2013 8:53 AM EST 04/02/2013 8:53 AM EST us Ryan Cadena MD CHEMISTRY ORDERABLES Final Resu lt [facility] [address] [place] [address] * SCANNED OR REPORT (10/31/2009 12:00 AM EDT) Narrative 10/31/2009 11:46 AM EDT Ordered by an unspecified provider. Transcriptions Unknown, U - 10/31/2009 6:04 AM EDT us U Unknown PROCEDURE/MINOR SURGICAL ORDERAB LES Final Result * SCANNED OR REPORT STL (08/09/2009 12:00 AM EDT) Narrative 08/09/2009 8:04 AM EDT Ordered by an unspecified provider. Transcriptions Unknown, Unknown - 08/09/2009 2:34 AM EDT us Unknown Unknown PROCEDURE/MINOR SURGICAL ORDERAB LES Final Result * XR KNEE 3 VIEWS (11/21/2005 2:47 PM EDT) Anatomical Region Laterality Modality Other 11/21/2005 2:47 PM EDT Narrative 11/21/2005 4:14 PM EDT [facility]AL [facility] November 21, 2005. Left knee 3 views. History. Pain. Comparison is made to films of 01/29/2005. No fracture or joint effusion is seen. There is slight narrowing of the medial compartment of the joint space. 1.8 cm osteochondroma arises from the posterior aspect of the proximal tibial shaft. There is no significant interval change. Conclusion- No acute abnormality seen. Small tibial exostosis or osteochondroma. There are slight to moderate changes of osteoarthritis. Rug Weaver- VIVEK Lara Radiologist- DONNIE LEAL MD Released Date Time- 11/21/051958 Procedure Note Donnie Leal - 05/25/2009 [facility], [facility]. Left knee 3 views. History. Pain. Comparison is made to films of 01/29/2005. No fracture or joint effusion is seen. There is slight narrowing of the medial compartment of the joint space. 1.8 cm osteochondroma arises from the posterior aspect of the proximal tibial shaft. There is no significant interval change. Conclusion- No acute abnormality seen. Small tibial exostosis or osteochondroma. There are slight to moderate changes of osteoarthritis. Rug Weaver- VIVEK Lara Radiologist- DONNIE LEAL MD Released Date Time- 11/21/051958 Uri Pope MD [facility] NUNU GOMEZ Final Result * XR HIP & PELVIS (10/20/2005 10:54 AM EDT) Anatomical Region Laterality Modality Other 10/20/2005 10:5 4 AM EDT Narrative 10/20/2005 11:21 AM EDT Two view pelvis and left hip, 10/20/05 Comparison- None. Indication- 50-year-old male with left hip pain. No known trauma. Findings- Left hip joint space is normal. No significant narrowing or degenerative change. Configuration and density of left proximal femora is normal. Pelvis is normal. Impression- 1. Negative exam. Rug Weaver- CHRIS Lara Radiologist- JEANINE GUTIERREZ MD. Released Date Time- 10/22/05 1237 Procedure Note Jeanine Gutierrez - 05/25/2009 Two view pelvis and left hip, 10/20/05 Comparison- None. Indication- 50-year-old male with left hip pain. No known trauma. Findings- Left hip joint space is normal. No significant narrowing or degenerative change. Configuration and density of left proximal femora is normal. Pelvis is normal. Impression- 1. Negative exam. Rug Weaver- CHRIS MCCURDY Reading Radiologist- JEANINE GUTIERREZ MD. Released Date Time- 10/22/05 1237 Mehran Maddox MD [facility] [employer] RAD HISTORICAL F inal Result * XR CHEST PA & LATERAL (08/06/2005 4:06 PM EDT) Anatomical Region Laterality Modality Other 08/06/2005 4:06 PM EDT Narrative 08/06/2005 4:19 PM EDT PA and lateral chest, 08/06/2005 Indication- Left-sided chest pain. Findings- PA and lateral chest demonstrates a small amount of scarring in the right lung base. Normal heart size and pulmonary vascularity. Lungs are clear. Chest is otherwise negative. Impression- No acute process in the chest. Rug Weaver- ROMINA GALLEGOS Reading Radiologist- ALPHONSE ROSA M.D. Released Date Time- 08/06/052055 Procedure Note Alphonse Rosa - 05/25/2009 PA and lateral chest, 08/06/2005 Indication- Left-sided chest pain. Findings- PA and lateral chest demonstrates a small amount of scarring in the right lung base. Normal heart size and pulmonary vascularity. Lungs are clear. Chest is otherwise negative. Impression- No acute process in the chest. Rug Weaver- ROMINA GALLEGOS Reading Radiologist- ALPHONSE ROSA M.D. Released Date Time- 08/06/052055 Gregg Carr MD [facility] [employer] [facility] HISTO RICAL Final Result * US RETROPERITONEAL COMPLETE (07/16/2005 8:14 AM EDT) Anatomical Region Laterality Modality Other 07/16/2005 8:14 AM EDT Narrative 07/16/2005 10:48 AM EDT -PT WILLIAM [employer] Abdominal aortic ultrasound, 07/16/2005 1. History- Evaluate for abdominal aortic aneurysm. 2. Abdominal aorta well demonstrated^ maximal AP and transverse diameter of abdominal aorta is only 2.2 cm. There is no evidence of abdominal aortic aneurysm. IMPRESSION- Normal study. Rug Weaverbrock Lara Radiologist- JOSE ALLRED MD Released Date Time- 07/16/05 1215 Procedure Note Jose Allred - 05/25/2009 -PT WILLIAM [employer] Abdominal aortic ultrasound, 07/16/2005 1. History- Evaluate for abdominal aortic aneurysm. 2. Abdominal aorta well demonstrated^ maximal AP and transverse diameter of abdominal aorta is only 2.2 cm. There is no evidence of abdominal aortic aneurysm. IMPRESSION- Normal study. Rug Weaverbrock Lara RadiologistJeana ALLRED MD Released Date Time- 07/16/05 1215 us Humza Graham DO IMG [facility] HISTORICAL Yashira l Result * VA ARTERIAL LOWER (07/16/2005 7:45 AM EDT) Anatomical Region Laterality Modality Other 07/16/2005 7:45 AM EDT Narrative 07/16/2005 8:12 AM EDT History- DECREASED PULSES, COLD FEET, SMOKER LOWER EXTREMITY ARTERIAL EVALUATION RIGHT LEFT SIGNAL PRESSURE SIGNAL PRESSURE BRACHIAL 118 mmhg 115 mmhg COM. FEM. TRIPHASIC mmhg TRIPHASIC mmhg SUPERFICIAL TRIPHASIC mmhg TRIPHASIC mmhg POPLITEAL TRIPHASIC mmhg TRIPHASIC mmhg POST. TIBIAL TRIPHASIC 133 mmhg TRIPHASIC 144 mmhg DORSALIS PEDIS TRIPHASIC 144 mmhg TRIPHASIC 147 mmhg GREAT TOE 92 mmhg 101 mmhg ANKLE BRACHIAL INDEX VALUES* Normal >1.0 Intermittent Claudication 0.6-1.0 Ischemic Rest Pain 0.3-0.6 Impending Gangrene 0.0-0.3 IMPRESSION- RABI- 1.22 NORMAL LABI- 1.25 NORMAL NORMAL HEMODYNAMICS ARE NOTED OF BOTH LOWER EXTREMITIES AT REST. PVRS AND DOPPLER WAVEFORMS ARE WITHIN NORMAL LIMITS BILATERALLY. THERE IS NO EVIDENCE OF ARTERIAL INSUFFICIENCY OF EITHER LEG. Rug Weaver- JEANINE PIÑA MD Released Date Time- 07/17/05702 Procedure Note Chris Piña - 05/25/2009 History- DECREASED PULSES, COLD FEET, SMOKER LOWER EXTREMITY ARTERIAL EVALUATION RIGHT LEFT SIGNAL PRESSURE SIGNAL PRESSURE BRACHIAL 118 mmhg 115 mmhg COM. FEM. TRIPHASIC mmhg TRIPHASIC mmhg SUPERFICIAL TRIPHASIC mmhg TRIPHASIC mmhg POPLITEAL TRIPHASIC mmhg TRIPHASIC mmhg POST. TIBIAL TRIPHASIC 133 mmhg TRIPHASIC 144 mmhg DORSALIS PEDIS TRIPHASIC 144 mmhg TRIPHASIC 147 mmhg GREAT TOE 92 mmhg 101 mmhg ANKLE BRACHIAL INDEX VALUES* Normal >1.0 Intermittent Claudication 0.6-1.0 Ischemic Rest Pain 0.3-0.6 Impending Gangrene 0.0-0.3 IMPRESSION- RABI- 1.22 NORMAL LABI- 1.25 NORMAL NORMAL HEMODYNAMICS ARE NOTED OF BOTH LOWER EXTREMITIES AT REST. PVRS AND DOPPLER WAVEFORMS ARE WITHIN NORMAL LIMITS BILATERALLY. THERE IS NO EVIDENCE OF ARTERIAL INSUFFICIENCY OF EITHER LEG. Rug WeaverJeana PIÑA MD Released Date Time- 07/17/05702 us Humza Graham DO IMG [facility] HISTORICAL Fin al Result * VA ARTERIAL/BRACHIAL (03/08/2005 10:30 AM EST) Anatomical Region Laterality Modality Other 03/08/2005 10:3 0 AM EST Narrative 03/08/2005 11:36 AM EST History- Smoker. Right foot pain and coldness. Bilateral leg pain. LOWER EXTREMITY ARTERIAL EVALUATION RIGHT LEFT SIGNAL PRESSURE SIGNAL PRESSURE BRACHIAL TRIPHASIC 108 mmhg TRIPHASIC 117 mmhg COM. FEM. TRIPHASIC mmhg TRIPHASIC mmhg SUPERFICIAL TRIPHASIC 138 mmhg TRIPHASIC 128 mmhg POPLITEAL TRIPHASIC mmhg TRIPHASIC mmhg POST. TIBIAL TRIPHASIC 140 mmhg TRIPHASIC 138 mmhg DORSALIS PEDIS BIPHASIC 135 mmhg BIPHASIC 128 mmhg ANKLE BRACHIAL INDEX VALUES* Normal >1.0 Intermittent Claudication 0.6-1.0 Ischemic Rest Pain 0.3-0.6 Impending Gangrene 0.0-0.3 IMPRESSION- RABI- 1.20 Normal LABI- 1.18 Normal Multiphasic doppler signals heard throughout the Right and Left lower extremity arterial system. Normal flow volumes at the Thigh and Ankle. Conclusion- No evidence of arterial insufficency of the Right or Left lower extremity. Normal flow volume at the Thigh and Ankle. Rug Weaver- DOTTY REED Reading Radiologist- ELIE YU MD Released Date Time- 03/14/05 1726 Procedure Note Elie Morales - 05/24/2009 History- Smoker. Right foot pain and coldness. Bilateral leg pain. LOWER EXTREMITY ARTERIAL EVALUATION RIGHT LEFT SIGNAL PRESSURE SIGNAL PRESSURE BRACHIAL TRIPHASIC 108 mmhg TRIPHASIC 117 mmhg COM. FEM. TRIPHASIC mmhg TRIPHASIC mmhg SUPERFICIAL TRIPHASIC 138 mmhg TRIPHASIC 128 mmhg POPLITEAL TRIPHASIC mmhg TRIPHASIC mmhg POST. TIBIAL TRIPHASIC 140 mmhg TRIPHASIC 138 mmhg DORSALIS PEDIS BIPHASIC 135 mmhg BIPHASIC 128 mmhg ANKLE BRACHIAL INDEX VALUES* Normal >1.0 Intermittent Claudication 0.6-1.0 Ischemic Rest Pain 0.3-0.6 Impending Gangrene 0.0-0.3 IMPRESSION- RABI- 1.20 Normal LABI- 1.18 Normal Multiphasic doppler signals heard throughout the Right and Left lower extremity arterial system. Normal flow volumes at the Thigh and Ankle. Conclusion- No evidence of arterial insufficency of the Right or Left lower extremity. Normal flow volume at the Thigh and Ankle. Rug Weaver- DOTTY REED Reading Radiologist- ELIE YU MD Released Date Time- 03/14/05 1726 Humza Graham DO [facility] STAR CARD [facility] al Result * CT HEAD UPHOLSTERY HANDLER (02/10/2005 12:29 PM EST) Anatomical Region Laterality Modality Other 02/10/2005 12:2 9 PM EST Narrative 02/10/2005 12:[address] head without contrast, 10 February 2005 at 1236 hours Clinical History- Numbness in the fingers. The ventricular system is within normal limits. No mass effect or extra-axial collection is demonstrated. No areas of abnormal brain attenuation or abnormal contrast enhancement are identified. Impression- Normal [facility] perinatal technician called the physician at the time of the dictation. Rug Weaver- TRISTON Lara Radiologist- ANTHONY MALAVE M.D. Released Date Time- 02/10/05 1317 Procedure Note Derrick Malave - 05/24/2009 CT head without contrast, 10 February 2005 at 1236 hours Clinical History- Numbness in the fingers. The ventricular system is within normal limits. No mass effect or extra-axial collection is demonstrated. No areas of abnormal brain attenuation or abnormal contrast enhancement are identified. Impression- Normal [facility] perinatal technician called the physician at the time of the dictation. Rug Weaver- TRISTON Lara Radiologist- ANTHONY MALAVE M.D. Released Date Time- 02/10/05 1317 us Humza Graham DO [facility]G [facility]OR[facility] Yashira l Result * XR KNEE (01/29/2005 10:43 AM EST) Anatomical Region Laterality Modality Other 01/29/2005 10:4 3 AM EST Narrative 01/29/2005 2:15 PM EST 4 views left knee 01/29/2005. History- Knee pain. There is some early degenerative changes of the medial tibiofemoral joint compartment. There is a small exostosis arising from the posterior lateral cortex of the tibia. No fracture or dislocation is seen. There is suspicion of a small suprapatellar effusion. Rug Weaver- JEANINE Lara Radiologist- MARK ANTHONY ALLEN MD Released Date Time- 01/29/05 1415 Procedure Note Mark Anthony Allen - 05/24/2009 4 views left knee 01/29/2005. History- Knee pain. There is some early degenerative changes of the medial tibiofemoral joint compartment. There is a small exostosis arising from the posterior lateral cortex of the tibia. No fracture or dislocation is seen. There is suspicion of a small suprapatellar effusion. Rug Weaver- JEANINE Lara Radiologist- MARK ANTHONY ALLEN MD Released Date Time- 01/29/05 1415 Mehran Maddox MD [facility] HISTORICAL F inal Result * XR FOOT & TOES (01/29/2005 10:42 AM EST) Anatomical Region Laterality Modality Other 01/29/2005 10:4 2 AM EST Narrative 01/29/2005 3:00 PM EST Right foot on 01/29/2005 There is a history of pain. Three views were taken. No fracture or other significant abnormality is seen. Rug Weaver- JEANINE Lara Radiologist- JOHAN HALL MD Released Date Time- 01/29/05 1500 Procedure Note Johan Hall - 05/24/2009 Right foot on 01/29/2005 There is a history of pain. Three views were taken. No fracture or other significant abnormality is seen. Rug Weaver- JEANINE Lara Radiologist- JOHAN HALL MD Released Date Time- 01/29/05 1500 Mehran Maddox MD [facility] HISTORICAL F inal Result * US EXTREMITY NON-VAS LEFT (03/22/2004 12:00 AM EST) Anatomical Region Laterality Modality Other 03/22/2004 03/22/2004 Narrative 03/22/2004 12:00 AM EST VERIFIED [facility] Reason: US LEFT ELBOW BURSITIS Dict.Staff: DEEPAK ALLRED Verified By: DEEPAK ALLRED Lluvia: 03/22/04 4:24 pm Exams: US-EXTREMITY NON-VAS LT LEFT OLECRANON ULTRASOUND: 1. There is obvious soft tissue swelling in the left olecranon area. The olecranon bursa is slightly distended with fluid and there is apparent synovial thickening and questionable nodularity within it. This raises the question of GOUTY or rheumatoid arthritis. IMPRESSION: NONSPECIFIC FINDINGS RAISE THE QUESTION OF GOUTY OR RHEUMATOID ARTHRITIS. GS/huy end of result Procedure Note Unknown, U - 06/30/2009 VERIFIED [facility] Reason: US LEFT ELBOW BURSITIS Dict.Staff: DEEPAK ALLRED Verified By: DEEPAK ALLRED Lluvia: 03/22/04 4:24 pm Exams: US-EXTREMITY NON-VAS LT LEFT OLECRANON ULTRASOUND: 1. There is obvious soft tissue swelling in the left olecranon area. The olecranon bursa is slightly distended with fluid and there is apparent synovial thickening and questionable nodularity within it. This raises the question of GOUTY or rheumatoid arthritis. IMPRESSION: NONSPECIFIC FINDINGS RAISE THE QUESTION OF GOUTY OR RHEUMATOID ARTHRITIS. 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 03/05/2013 Fracture of left foot Closed fracture of unspecified bone(s) of foot (except toes) 03/05/2013 Pelvic pain complicating Other specified complication of , unspecified as to episode of care 03/05/2013 Wrist pain Pain in joint, forearm 03/05/2013 S/P colon resection Other postprocedural status 03/05/2013 Colonic mass Other specified disorder of intestines 03/05/2013 Colon cancer screening Special screening for malignant neoplasms, colon 03/25/2013 Routine health maintenance Routine general medical examination at a health care facility 04/01/2013 Colon cancer screening Special screening for malignant neoplasms, colon 04/01/2013 Vitamin D deficiency Unspecified vitamin D deficiency 04/01/2013 Tobacco abuse Tobacco use disorder 04/01/2013 Wrist pain Pain in joint, forearm 04/01/2013 Sinusitis Unspecified sinusitis (chronic) 04/01/2013 COPD (chronic obstructive pulmonary disease) (HCC) Chronic airway obstruction, not elsewhere classified 04/01/2013 Wrist pain Pain in joint, forearm 04/02/2013 Pelvic pain complicating Other specified complication of , unspecified as to episode of care 04/02/2013 Routine health maintenance Routine general medical examination at a health care facility 04/02/2013 Vitamin D deficiency Unspecified vitamin D deficiency 04/02/2013 Emphysema Other emphysema 04/02/2013 DVT (deep venous thrombosis) (HCC) Acute venous embolism and thrombosis of unspecified deep vessels of lower extremity 04/02/2013 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 04/02/2013 Carpal tunnel syndrome of right wrist Carpal tunnel syndrome 04/02/2013 Fracture of left foot Closed fracture of unspecified bone(s) of foot (except toes) 04/02/2013 S/P colon resection Other postprocedural status 04/02/2013 Colonic mass Other specified disorder of intestines 04/02/2013 Emphysema Other emphysema 04/23/2013 DVT (deep venous thrombosis) (HCC) Acute venous embolism and thrombosis of unspecified deep vessels of lower extremity 04/23/2013 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 04/23/2013 Carpal tunnel syndrome of right wrist Carpal tunnel syndrome 04/23/2013 Fracture of left foot Closed fracture of unspecified bone(s) of foot (except toes) 04/23/2013 S/P colon resection Other postprocedural status 04/23/2013 Colonic mass Other specified disorder of intestines 04/23/2013 B12 deficiency Other B-complex deficiencies 04/23/2013 Vitamin D deficiency Unspecified vitamin D deficiency 04/23/2013 Abnormal LFTs Other abnormal blood chemistry 04/23/2013 Right hand pain Pain in limb 04/23/2013 Abnormal LFTs Other abnormal blood chemistry 04/30/2013 Annual physical exam Routine general medical examination at a health care facility 04/18/2015 Vitamin D deficiency Unspecified vitamin D deficiency 04/18/2015 DVT (deep venous thrombosis), unspecified laterality 04/18/2015 Pulmonary emphysema, unspecified emphysema type 04/18/2015 Acute bacterial sinusitis Acute sinusitis, unspecified 04/18/2015 Emphysema with chronic bronchitis (HCC) Obstructive chronic bronchitis without exacerbation 04/18/2015 Nocturia more than twice per night 04/18/2015 Annual physical exam Routine general medical examination at a health care facility 04/18/2015 Vitamin D deficiency Unspecified vitamin D deficiency 04/18/2015 Need for influenza vaccination Need for prophylactic vaccination and inoculation against influenza 04/18/2015 Failed total left knee replacement, subsequent encounter 04/18/2015 Pain in joint, pain in unspecified joint 04/18/2015 Hepatitis C antibody test positive Other and unspecified nonspecific immunological findings 04/21/2015 Vitamin D deficiency Unspecified vitamin D deficiency 04/21/2015 Vitamin D deficiency Unspecified vitamin D deficiency 05/04/2015 Hepatitis C antibody test positive Other and unspecified nonspecific immunological findings 05/06/2015 Hepatitis C antibody test positive Other and unspecified nonspecific immunological findings 05/10/2015 Exposure to the flu Contact with or exposure to other viral diseases 06/06/2015 Vitamin D deficiency Unspecified vitamin D deficiency 08/29/2015 Emphysema with chronic bronchitis (HCC) Obstructive chronic bronchitis without exacerbation 08/29/2015 Pulmonary emphysema, unspecified emphysema type 08/29/2015 COPD with acute exacerbation (HCC) Obstructive chronic bronchitis with exacerbation 08/29/2015 Vitamin D deficiency Unspecified vitamin D deficiency 08/31/2015 Vitamin D deficiency Unspecified vitamin D deficiency 10/04/2015 Chronic bronchitis, unspecified chronic bronchitis type (HCC) 10/04/2015 Vitamin D deficiency Unspecified vitamin D deficiency 10/04/2015 Hepatitis C antibody test positive Other and unspecified nonspecific immunological findings 10/04/2015 Healthcare maintenance Routine general medical examination at a health care facility 10/04/2015 Vitamin D deficiency Unspecified vitamin D deficiency 10/05/2015 Vitamin D deficiency Unspecified vitamin D deficiency 01/10/2016 Acute bronchitis, unspecified organism 01/10/2016 COPD with acute exacerbation (HCC) Obstructive chronic bronchitis with exacerbation 01/10/2016 Vitamin D deficiency Unspecified vitamin D deficiency 01/10/2016 Screening for colon cancer Special screening for malignant neoplasms, colon 01/10/2016 Need for influenza vaccination Need for prophylactic vaccination and inoculation against influenza 01/10/2016 Mucopurulent chronic bronchitis (HCC) Mucopurulent chronic bronchitis 02/15/2016 Gastroesophageal reflux disease without esophagitis Esophageal reflux 02/15/2016 Nausea and vomiting, intractability of vomiting not specified, unspecified vomiting type 02/15/2016 Depression, unspecified depression type 02/15/2016 Diarrhea in adult patient Diarrhea 02/15/2016 Chronic bronchitis, unspecified chronic bronchitis type (HCC) 03/19/2016 Depression, unspecified depression type 03/19/2016 Chronic deep vein thrombosis (DVT) of other vein of right lower extremity (HCC) 03/19/2016 Vitamin D deficiency Unspecified vitamin D deficiency 03/19/2016 Gastroesophageal reflux disease without esophagitis Esophageal reflux 05/15/2016 Tremors of nervous system Abnormal involuntary movements 06/13/2016 Chronic bronchitis, unspecified chronic bronchitis type (HCC) 06/27/2016 Gastroesophageal reflux disease without esophagitis Esophageal reflux 07/03/2016 Depression, unspecified depression type 07/03/2016 Tremors of nervous system Abnormal involuntary movements 07/03/2016 Chronic deep vein thrombosis (DVT) of other vein of right lower extremity (HCC) 07/03/2016 S/P colon resection Other postprocedural status 07/03/2016 Arthralgia, unspecified joint 07/03/2016 Chronic bronchitis, unspecified chronic bronchitis type (HCC) 07/03/2016 Chronic deep vein thrombosis (DVT) of other vein of right lower extremity (HCC) 07/11/2016 Depression, unspecified depression type 11/07/2016 Gastroesophageal reflux disease without esophagitis Esophageal reflux 11/07/2016 Tremors of nervous system Abnormal involuntary movements 11/07/2016 Chronic deep vein thrombosis (DVT) of other vein of right lower extremity (HCC) 11/11/2016 Tremors of nervous system Abnormal involuntary movements 02/12/2017 Depression, unspecified depression type 02/17/2017 Gastroesophageal reflux disease without esophagitis Esophageal reflux 02/17/2017 Chronic deep vein thrombosis (DVT) of other vein of right lower extremity (HCC) 02/26/2017 Depression, unspecified depression type 06/04/2017 Gastroesophageal reflux disease without esophagitis Esophageal reflux 06/04/2017 Visit for well man health check Routine general medical examination at a health care facility 06/17/2017 B12 deficiency Other B-complex deficiencies 06/17/2017 history of appendix carcinoma Malignant neoplasm of appendix vermiformis 06/17/2017 History of colon polyps Personal history of colonic polyps 06/17/2017 S/P colon resection Other postprocedural status 06/17/2017 Vitamin D deficiency Unspecified vitamin D deficiency 06/17/2017 Chronic obstructive pulmonary disease, unspecified COPD type (HCC) 06/17/2017 History of DVT (deep vein thrombosis) Personal history of venous thrombosis and embolism 06/17/2017 Gastroesophageal reflux disease, esophagitis presence not specified 06/17/2017 Mild episode of recurrent major depressive disorder 06/17/2017 History of joint pain 06/17/2017 Hepatitis C antibody test positive Other and unspecified nonspecific immunological findings 06/17/2017 Tremors of nervous system Abnormal involuntary movements 06/17/2017 Impacted cerumen of left ear Impacted cerumen 06/17/2017 Trapezius muscle strain, left, initial encounter 06/17/2017 Cigarette nicotine dependence without complication Tobacco use disorder 06/17/2017 Screening for diabetes mellitus (DM) Screening for diabetes mellitus 06/17/2017 Screening for cholesterol level Screening for lipoid disorders 06/17/2017 Screening for prostate cancer Special screening for malignant neoplasm of prostate 06/17/2017 Screening for thyroid disorder 06/17/2017 Hepatitis C antibody test positive Other and unspecified nonspecific immunological findings 06/19/2017 Visit for well man health check Routine general medical examination at a health care facility 06/19/2017 B12 deficiency Other B-complex deficiencies 06/19/2017 Screening for diabetes mellitus (DM) Screening for diabetes mellitus 06/19/2017 Screening for cholesterol level Screening for lipoid disorders 06/19/2017 Screening for prostate cancer Special screening for malignant neoplasm of prostate 06/19/2017 Screening for thyroid disorder 06/19/2017 Vitamin D deficiency Unspecified vitamin D deficiency 06/19/2017 History of joint pain 06/19/2017 Vitamin D deficiency Unspecified vitamin D deficiency 06/21/2017 History of joint pain 06/21/2017 Right hand pain Pain in limb 06/27/2017 Right hand pain Pain in limb 07/03/2017 Tear of right scapholunate ligament, initial encounter 07/10/2017 Neck pain Cervicalgia 07/18/2017 Neck pain Cervicalgia 07/19/2017 Discogenic cervical pain Cervicalgia 07/26/2017 Neck pain Cervicalgia 08/21/2017 Neck pain Cervicalgia 08/21/2017 Chronic deep vein thrombosis (DVT) of other vein of right lower extremity (HCC) 08/29/2017 Depression, unspecified depression type 08/30/2017 Gastroesophageal reflux disease without esophagitis Esophageal reflux 08/30/2017 Tremors of nervous system Abnormal involuntary movements 09/12/2017 Neck pain Cervicalgia 10/03/2017 Tremors of nervous system Abnormal involuntary movements 10/31/2017 Depression, unspecified depression type 11/29/2017 Gastroesophageal reflux disease without esophagitis Esophageal reflux 11/29/2017 Chronic deep vein thrombosis (DVT) of other vein of right lower extremity (HCC) 12/12/2017 Tremors of nervous system Abnormal involuntary movements 12/16/2017 Tremors of nervous system Abnormal involuntary movements 01/11/2018 Tremors of nervous system Abnormal involuntary movements 01/26/2018 Neck pain Cervicalgia 04/28/2018 Tremors of nervous system Abnormal involuntary movements 06/11/2018 Right foot pain Pain in limb 06/19/2018 Right foot pain Pain in limb 06/19/2018 Tremors of nervous system Abnormal involuntary movements 07/07/2018 Screening for colon cancer Special screening for malignant neoplasms, colon 08/07/2018 Screening for cancer of the rectum Screening for malignant neoplasm of the rectum 08/07/2018 Depression, unspecified depression type 09/08/2018 Gastroesophageal reflux disease without esophagitis Esophageal reflux 09/08/2018 Tremors of nervous system Abnormal involuntary movements 09/14/2018 Neck pain Cervicalgia 10/30/2018 Chronic deep vein thrombosis (DVT) of other vein of right lower extremity (HCC) 12/15/2018 Tremors of nervous system Abnormal involuntary movements 12/15/2018 Encounter for Medicare annual wellness exam Routine general medical examination at a health care facility 02/23/2019 Encounter for screening for malignant neoplasm of respiratory organs Special screening for malignant neoplasm of the respiratory organs 02/23/2019 Smoking greater than 30 pack years Tobacco use disorder 02/23/2019 Flu vaccine need Need for prophylactic vaccination and inoculation against influenza 02/23/2019 Screening for colon cancer Special screening for malignant neoplasms, colon 02/23/2019 Need for pneumococcal vaccination Need for prophylactic vaccination against streptococcus pneumoniae (pneumococcus) 02/23/2019 Mild episode of recurrent major depressive disorder 02/23/2019 Chronic obstructive pulmonary disease, unspecified COPD type (HCC) 02/23/2019 Blood typing encounter Encounter for blood typing 02/23/2019 Chronic deep vein thrombosis (DVT) of other vein of right lower extremity (HCC) 02/23/2019 Scapho-lunate dissociation, right 02/23/2019 Cigarette nicotine dependence with withdrawal Drug withdrawal 02/23/2019 Left ear impacted cerumen Impacted cerumen 02/23/2019 Depression, unspecified depression type 02/25/2019 Gastroesophageal reflux disease without esophagitis Esophageal reflux 02/25/2019 Tremors of nervous system Abnormal involuntary movements 03/09/2019 Tremors of nervous system Abnormal involuntary movements 03/25/2019 Tear of right scapholunate ligament, initial encounter 04/07/2019 Pre-op examination Preoperative examination, unspecified 04/07/2019 Emphysema with chronic bronchitis (HCC) Obstructive chronic bronchitis without exacerbation 04/07/2019 Gastroesophageal reflux disease without esophagitis Esophageal reflux 04/07/2019 Cigarette nicotine dependence with withdrawal Drug withdrawal 04/07/2019 Chronic deep vein thrombosis (DVT) of other vein of right lower extremity (HCC) 04/07/2019 Neck pain Cervicalgia 04/16/2019 Injury of right hand, initial encounter 04/21/2019 Tremors of nervous system Abnormal involuntary movements 06/07/2019 Neck pain Cervicalgia 07/17/2019 Neck pain Cervicalgia 07/23/2019 Tremors of nervous system Abnormal involuntary movements 07/23/2019 Mild episode of recurrent major depressive disorder 09/01/2019 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 09/01/2019 Impacted cerumen of left ear Impacted cerumen 09/01/2019 ED (erectile dysfunction) of non-organic origin Psychosexual dysfunction with inhibited sexual excitement 09/01/2019 Depression, unspecified depression type 09/18/2019 Gastroesophageal reflux disease without esophagitis Esophageal reflux 09/18/2019 Tremors of nervous system Abnormal involuntary movements 10/14/2019 Venous stasis Unspecified venous (peripheral) insufficiency 10/29/2019 Chronic deep vein thrombosis (DVT) of other vein of right lower extremity (HCC) 12/14/2019 Encounter for Medicare annual wellness exam Routine general medical examination at a health care facility 12/15/2019 Need for shingles vaccine Need for prophylactic vaccination and inoculation against varicella 12/15/2019 Needs flu shot Need for prophylactic vaccination and inoculation against influenza 12/15/2019 Vitamin D deficiency Unspecified vitamin D deficiency 12/15/2019 B12 deficiency Other B-complex deficiencies 12/15/2019 S/P colon resection Other postprocedural status 12/15/2019 BMI 26.0-26.9,adult Body Mass Index 26.0-26.9, adult 12/15/2019 Screening for prostate cancer Special screening for malignant neoplasm of prostate 12/15/2019 Emphysema with chronic bronchitis (HCC) Obstructive chronic bronchitis without exacerbation 12/15/2019 Pulmonary emphysema, unspecified emphysema type 12/15/2019 COPD with acute exacerbation (HCC) Obstructive chronic bronchitis with exacerbation 12/15/2019 Failed total left knee replacement, subsequent encounter 12/15/2019 Chronic deep vein thrombosis (DVT) of other vein of right lower extremity (HCC) 12/15/2019 Effusion, left elbow 12/15/2019 Encounter for smoking cessation counseling Counseling on substance use and abuse 12/15/2019 Hyperlipidemia with target LDL less than 100 Other and unspecified hyperlipidemia 12/15/2019 Living will, counseling/discussion Other specified counseling 12/15/2019 Normocytic anemia Anemia, unspecified 12/16/2019 Encounter for screening for malignant neoplasm of respiratory organs Special screening for malignant neoplasm of the respiratory organs 12/23/2019 Smoking greater than 30 pack years Tobacco use disorder 12/23/2019 Personal history of tobacco use Personal history of tobacco use, presenting hazards to health 12/24/2019 Normocytic anemia Anemia, unspecified 01/15/2020 Needs flu shot Need for prophylactic vaccination and inoculation against influenza 01/15/2020 Tremors of nervous system Abnormal involuntary movements 02/02/2020 Gastroesophageal reflux disease without esophagitis Esophageal reflux 03/01/2020 Depression, unspecified depression type 03/01/2020 Depression, unspecified depression type 03/22/2020 Skin lesion of face Unspecified disorder of skin and subcutaneous tissue 04/18/2020 Emphysema with chronic bronchitis (HCC) Obstructive chronic bronchitis without exacerbation 04/18/2020 Mild episode of recurrent major depressive disorder 04/18/2020 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 04/18/2020 Chronic deep vein thrombosis (DVT) of other vein of right lower extremity (HCC) 04/18/2020 History of colon polyps Personal history of colonic polyps 04/18/2020 Neck pain Cervicalgia 04/23/2020 Tremors of nervous system Abnormal involuntary movements 05/07/2020 Tremors of nervous system Abnormal involuntary movements 05/07/2020 Emphysema with chronic bronchitis (HCC) Obstructive chronic bronchitis without exacerbation 07/21/2020 Pulmonary emphysema, unspecified emphysema type 07/21/2020 COPD with acute exacerbation (HCC) Obstructive chronic bronchitis with exacerbation 07/21/2020 Depression, unspecified depression type 07/21/2020 Gastroesophageal reflux disease without esophagitis Esophageal reflux 07/21/2020 Tremors of nervous system Abnormal involuntary movements 07/21/2020 Chronic deep vein thrombosis (DVT) of other vein of right lower extremity (HCC) 07/21/2020 Tremors of nervous system Abnormal involuntary movements 08/02/2020 Tremors of nervous system Abnormal involuntary movements 08/02/2020 Neck pain Cervicalgia 08/04/2020 Gastroesophageal reflux disease without esophagitis Esophageal reflux 09/04/2020 Medicare annual wellness visit, subsequent Routine general medical examination at a health care facility 09/08/2020 Colon cancer screening Special screening for malignant neoplasms, colon 09/08/2020 Need for pneumococcal vaccination Need for prophylactic vaccination against streptococcus pneumoniae (pneumococcus) 09/08/2020 Screening for AAA (abdominal aortic aneurysm) Screening for other and unspecified cardiovascular conditions 09/08/2020 Need for shingles vaccine Need for prophylactic vaccination and inoculation against varicella 09/08/2020 Encounter for screening for lung cancer 09/08/2020 Hepatitis C antibody test positive Other and unspecified nonspecific immunological findings 09/08/2020 Failed total left knee replacement, subsequent encounter 09/08/2020 Chronic deep vein thrombosis (DVT) of other vein of right lower extremity (HCC) 09/08/2020 Emphysema with chronic bronchitis (HCC) Obstructive chronic bronchitis without exacerbation 09/08/2020 history of appendix carcinoma Malignant neoplasm of appendix vermiformis 09/08/2020 Mild episode of recurrent major depressive disorder 09/08/2020 S/P colon resection Other postprocedural status 09/08/2020 Vitamin D deficiency Unspecified vitamin D deficiency 09/08/2020 History of colon polyps Personal history of colonic polyps 09/08/2020 Gastroesophageal reflux disease without esophagitis Esophageal reflux 09/08/2020 Full code status Other specified conditions influencing health status 09/08/2020 Living will, counseling/discussion Other specified counseling 09/08/2020 Low vitamin B12 level Other B-complex deficiencies 09/08/2020 Essential tremor Essential and other specified forms of tremor 09/08/2020 Dyslipidemia Other and unspecified hyperlipidemia 09/08/2020 Tremors of nervous system Abnormal involuntary movements 09/21/2020 Emphysema with chronic bronchitis (HCC) Obstructive chronic bronchitis without exacerbation 09/26/2020 Pulmonary emphysema, unspecified emphysema type 09/26/2020 COPD with acute exacerbation (HCC) Obstructive chronic bronchitis with exacerbation 09/26/2020 Acute bronchitis, unspecified organism 11/17/2020 Acute pain of left shoulder 11/17/2020 Olecranon bursitis of right elbow Olecranon bursitis 11/17/2020 Tremors of nervous system Abnormal involuntary movements 11/28/2020 Depression, unspecified depression type 12/08/2020 Emphysema with chronic bronchitis (HCC) Obstructive chronic bronchitis without exacerbation 12/08/2020 Emphysema with chronic bronchitis (HCC) Obstructive chronic bronchitis without exacerbation 12/20/2020 Pulmonary emphysema, unspecified emphysema type 12/20/2020 COPD with acute exacerbation (HCC) Obstructive chronic bronchitis with exacerbation 12/20/2020 Screening for malignant neoplasm of respiratory organ Special screening for malignant neoplasm of the respiratory organs 12/22/2020 Personal history of tobacco use, presenting hazards to health 12/22/2020 Personal history of tobacco use Personal history of tobacco use, presenting hazards to health 12/22/2020 Screening for AAA (abdominal aortic aneurysm) Screening for other and unspecified cardiovascular conditions 12/30/2020 Gastroesophageal reflux disease without esophagitis Esophageal reflux 02/08/2021 Tremors of nervous system Abnormal involuntary movements 03/09/2021 Tremors of nervous system Abnormal involuntary movements 05/15/2021 Fever, unspecified fever cause 06/16/2021 COPD exacerbation (HCC) Obstructive chronic bronchitis with exacerbation 06/16/2021 Depression, unspecified depression type 09/25/2021 Chronic deep vein thrombosis (DVT) of other vein of right lower extremity (HCC) 09/25/2021 Emphysema with chronic bronchitis (HCC) Obstructive chronic bronchitis without exacerbation 09/29/2021 Gastroesophageal reflux disease without esophagitis Esophageal reflux 10/17/2021 Acute cough 12/06/2021 Acute cough 12/06/2021 Chest pain at rest Chest pain, unspecified 12/11/2021 Mild episode of recurrent major depressive disorder 12/11/2021 Chronic deep vein thrombosis (DVT) of other vein of right lower extremity (HCC) 12/11/2021 Anemia, unspecified type 12/11/2021 Dyslipidemia Other and unspecified hyperlipidemia 12/11/2021 Colon cancer screening Special screening for malignant neoplasms, colon 12/11/2021 Prostate cancer screening Special screening for malignant neoplasm of prostate 12/11/2021 Plantar fasciitis Plantar fascial fibromatosis 12/11/2021 Low vitamin B12 level Other B-complex deficiencies 12/11/2021 Vitamin D deficiency Unspecified vitamin D deficiency 12/11/2021 Medicare annual wellness visit, subsequent Routine general medical examination at a [facility] facility 12/11/2021 Failed total left knee replacement, subsequent encounter 12/11/2021 Emphysema with chronic bronchitis (HCC) Obstructive chronic bronchitis without exacerbation 12/11/2021 S/P colon resection Other postprocedural status 12/11/2021 Gastroesophageal reflux disease without esophagitis Esophageal reflux 12/11/2021 History of colon polyps Personal history of colonic polyps 12/11/2021 Full code status Other specified conditions influencing health status 12/11/2021 Living will, counseling/discussion Other specified counseling 12/11/2021 Essential tremor Essential and other specified forms of tremor 12/11/2021 Tobacco abuse Tobacco use disorder 12/11/2021 Chest pain, unspecified type 01/03/2022 SOB (shortness of breath) Shortness of breath 01/03/2022 Smoker Tobacco use disorder 01/03/2022 Emphysema with chronic bronchitis (HCC) Obstructive chronic bronchitis without exacerbation 01/08/2022 Pulmonary emphysema, unspecified emphysema type 01/08/2022 COPD with acute exacerbation (HCC) Obstructive chronic bronchitis with exacerbation 01/08/2022 Tremors of nervous system Abnormal involuntary movements 01/08/2022 Chest pain, unspecified type 02/22/2022 SOB (shortness of breath) Shortness of breath 02/22/2022 Smoker Tobacco use disorder 02/22/2022 Chest pain, unspecified type 02/22/2022 SOB (shortness of breath) Shortness of breath 02/22/2022 Smoker Tobacco use disorder 02/22/2022 Chest pain, unspecified type 02/22/2022 SOB (shortness of breath) Shortness of breath 02/22/2022 Smoker Tobacco use disorder 02/22/2022 History of tobacco use Personal history of tobacco use, presenting hazards to health 05/21/2022 Encounter for screening for lung cancer 05/21/2022 Depression, unspecified depression type 07/01/2022 Tremors of nervous system Abnormal involuntary movements 07/01/2022 Gastroesophageal reflux disease without esophagitis Esophageal reflux 07/01/2022 Encounter for screening for lung cancer 11/22/2022 History of tobacco use Personal history of tobacco use, presenting hazards to health 11/22/2022 Lung nodule Solitary pulmonary nodule 11/23/2022 Emphysema with chronic bronchitis (HCC) Obstructive chronic bronchitis without exacerbation 11/24/2022 Tremors of nervous system Abnormal involuntary movements 11/24/2022 Chronic deep vein thrombosis (DVT) of other vein of right lower extremity (HCC) 11/24/2022 Lung nodule Solitary pulmonary nodule 12/13/2022 Tobacco use Tobacco use disorder 12/13/2022 Lung nodule Solitary pulmonary nodule 01/23/2023 Emphysema with chronic bronchitis (HCC) Obstructive chronic bronchitis without exacerbation 01/23/2023 SOB (shortness of breath) Shortness of breath 01/23/2023 Lung nodule Solitary pulmonary nodule 01/23/2023 Depression, unspecified depression type 02/28/2023 Gastroesophageal reflux disease without esophagitis Esophageal reflux 02/28/2023 Emphysema with chronic bronchitis (HCC) Obstructive chronic bronchitis without exacerbation 04/05/2023 Tremors of nervous system Abnormal involuntary movements 04/05/2023 Depression, unspecified depression type 04/05/2023 Gastroesophageal reflux disease without esophagitis Esophageal reflux 04/05/2023 Gastroesophageal reflux disease without esophagitis Esophageal reflux 04/18/2023 Depression, unspecified depression type 04/18/2023 Emphysema with chronic bronchitis (HCC) Obstructive chronic bronchitis without exacerbation 04/18/2023 Tremors of nervous system Abnormal involuntary movements 04/18/2023 Anemia, unspecified type 04/29/2023 Emphysema with chronic bronchitis (HCC) Obstructive chronic bronchitis without exacerbation 04/29/2023 Medicare annual wellness visit, subsequent Routine general medical examination at a health care facility 04/29/2023 Vitamin D deficiency Unspecified vitamin D deficiency 04/29/2023 Gastroesophageal reflux disease without esophagitis Esophageal reflux 04/29/2023 B12 deficiency Other B-complex deficiencies 04/29/2023 Dyslipidemia Other and unspecified hyperlipidemia 04/29/2023 Essential tremor Essential and other specified forms of tremor 04/29/2023 Failed total left knee replacement, subsequent encounter 04/29/2023 Full code status Other specified conditions influencing health status 04/29/2023 History of colon polyps Personal history of colonic polyps 04/29/2023 Lung nodule Solitary pulmonary nodule 04/29/2023 S/P colon resection Other postprocedural status 04/29/2023 Mild episode of recurrent major depressive disorder 04/29/2023 History of DVT (deep vein thrombosis) Personal history of venous thrombosis and embolism 04/29/2023 Colon cancer screening Special screening for malignant neoplasms, colon 04/29/2023 Tobacco abuse Tobacco use disorder 04/29/2023 Anemia, unspecified type 04/29/2023 Dyslipidemia Other and unspecified hyperlipidemia 05/03/2023 Depression, unspecified depression type 05/16/2023 Tobacco abuse Tobacco use disorder 05/27/2023 Gross hematuria 09/12/2023 Colon cancer screening Special screening for malignant neoplasms, colon 09/12/2023 History of colon polyps Personal history of colonic polyps 09/12/2023 Tobacco abuse Tobacco use disorder 09/12/2023 Chronic pain of right knee 09/12/2023 Effusion of right knee Effusion of lower leg joint 09/12/2023 Obesity, unspecified classification, unspecified obesity type, unspecified whether serious comorbidity present 09/12/2023 Chronic pain of right knee 09/16/2023 Gross hematuria 09/27/[address] Nonspecific abnormal results of liver function study 09/30/2023 Effusion of right knee Effusion of lower leg joint 10/08/2023 COPD with acute exacerbation (HCC) Obstructive chronic bronchitis with exacerbation 10/09/2023 Lung nodule Solitary pulmonary nodule 10/09/2023 Lymphadenopathy Enlargement of lymph nodes 10/09/2023 Tobacco abuse Tobacco use disorder 10/09/[address] Nonspecific abnormal results of liver function study 10/10/[address] Nonspecific abnormal results of liver function study 10/17/2023 Partial nodular transformation of liver 10/17/2023 Other specified inflammatory liver diseases 10/17/2023 COPD with acute exacerbation (HCC) Obstructive chronic bronchitis with exacerbation 10/17/2023 Hypoxemia 10/17/2023 Tobacco abuse Tobacco use disorder 10/17/2023 Chronic deep vein thrombosis (DVT) of other vein of right lower extremity (HCC) 11/23/2023 Emphysema with chronic bronchitis (HCC) Obstructive chronic bronchitis without exacerbation 12/05/2023 Atherosclerosis of both carotid arteries Occlusion and stenosis of carotid artery without mention of cerebral infarction 01/03/2024 Lymphadenopathy Enlargement of lymph nodes 01/03/2024 Lung nodule Solitary pulmonary nodule 01/03/2024 Emphysema with chronic bronchitis (HCC) Obstructive chronic bronchitis without exacerbation 01/08/2024 Atherosclerosis of both carotid arteries Occlusion and stenosis of carotid artery without mention of cerebral infarction 01/08/2024 Hematoma of scalp, initial encounter 01/08/2024 Atherosclerosis of both carotid arteries Occlusion and stenosis of carotid artery without mention of cerebral infarction 01/17/2024 Bilateral carotid artery disease, unspecified type 01/21/2024 Concussion with unknown loss of consciousness status, initial encounter 02/03/2024 Lesion of right ear 02/03/2024 Concussion with unknown loss of consciousness status, initial encounter 02/07/2024 Bilateral carotid artery stenosis Occlusion and stenosis of multiple and bilateral precerebral arteries without mention of cerebral infarction 02/07/2024 History of DVT (deep vein thrombosis) Personal history of venous thrombosis and embolism 02/07/2024 Lung nodule Solitary pulmonary nodule 02/07/2024 Concussion with loss of consciousness, sequela 02/07/2024 Chronic post-traumatic headache, not intractable Chronic post-traumatic headache 02/07/2024 Gastroesophageal reflux disease without esophagitis Esophageal reflux 02/22/2024 Emphysema with chronic bronchitis (HCC) Obstructive chronic bronchitis without exacerbation 03/04/2024 Encounter for support and coordination of transition of care 03/25/2024 Gross hematuria 03/25/2024 SBO (small bowel obstruction) (HCC) Unspecified intestinal obstruction 03/25/2024 Lung nodule Solitary pulmonary nodule 03/25/2024 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 03/25/2024 Depression, unspecified depression type 05/19/2024 Medicare annual wellness visit, subsequent Routine general medical examination at a health care facility 06/01/2024 Colon cancer screening Special screening for malignant neoplasms, colon 06/01/2024 Anemia, unspecified type 06/01/2024 Hyponatremia Hyposmolality and/or hyponatremia 06/01/2024 Prostate cancer screening Special screening for malignant neoplasm of prostate 06/01/2024 Vitamin D deficiency Unspecified vitamin D deficiency 06/01/2024 Subcutaneous nodule of foot 06/01/2024 S/P colon resection Other postprocedural status 06/01/2024 Mild episode of recurrent major depressive disorder 06/01/2024 Lung nodule Solitary pulmonary nodule 06/01/2024 Living will, counseling/discussion Other specified counseling 06/01/2024 History of colon polyps Personal history of colonic polyps 06/01/2024 Hepatitis C antibody test positive Other and unspecified nonspecific immunological findings 06/01/2024 Gastroesophageal reflux disease without esophagitis Esophageal reflux 06/01/2024 Full code status Other specified conditions influencing health status 06/01/2024 Failed total left knee replacement, subsequent encounter 06/01/2024 Essential tremor Essential and other specified forms of tremor 06/01/2024 Emphysema with chronic bronchitis (HCC) Obstructive chronic bronchitis without exacerbation 06/01/2024 Dyslipidemia Other and unspecified hyperlipidemia 06/01/2024 History of bladder cancer Personal history of malignant neoplasm of bladder 06/01/[address] Nonspecific abnormal results of liver function study 06/01/2024 B12 deficiency Other B-complex deficiencies 06/01/2024 Bilateral carotid artery stenosis Occlusion and stenosis of multiple and bilateral precerebral arteries without mention of cerebral infarction 06/01/2024 Subcutaneous nodule of foot 07/03/2024 Right foot pain Pain in limb 07/08/2024 Ganglion cyst of right foot 07/08/2024 Right foot pain Pain in limb 07/08/2024 Ganglion cyst of right foot 07/08/2024 Ganglion cyst of right foot 07/09/2024 Gastroesophageal reflux disease without esophagitis Esophageal reflux 07/29/2024 Chronic respiratory failure with hypoxia (HCC) Chronic respiratory failure 09/02/2024 Osteoarthritis of both knees, unspecified osteoarthritis type 09/02/2024 Emphysema with chronic bronchitis (HCC) Obstructive chronic bronchitis without exacerbation 09/02/2024 Gait abnormality Abnormality of gait 09/02/2024 History of falling Personal history of fall 09/02/2024 Tremors of nervous system Abnormal involuntary movements 09/02/2024 Colon cancer screening Special screening for malignant neoplasms, colon 09/02/2024 Essential tremor Essential and other specified forms of tremor 09/02/2024 Encounter for support and coordination of transition of care 09/08/2024 Encounter for support and coordination of transition of care 09/09/2024 Encounter for support and coordination of transition of care 09/10/2024 Chronic deep vein thrombosis (DVT) of other vein of right lower extremity (HCC) 12/28/2024 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
--- NOTE | 2025-01-20 13:42 | ED_ITS ---
<Statement entered by Ken Marshall MD - 01/21/25 10:36> I was consulted by the RUDOLPH, and we discussed the complexity of the problems being addressed. I approve the treatment and management plan for this patient's care in the emergency department, thus performing a substantive portion of the medical decision making. Ken Marshall MD <Statement entered by Chano Combs MD - 01/20/25 16:19> I consulted the RUDOLPH, and we discussed the complexity of the problems being addressed. I approved the treatment and management plan for this patient's care in the emergency department, thus performing a substantial portion of the medical decision making. At time of my signout to the oncoming attending we are pending results of the CT read prior to reaching out to the patient's urologist at the [facility]. Nick Combs MD Discharge Plan Disposition Patient Disposition: Home, Self-Care Condition: Good Prescriptions Prescriptions: New sulfamethoxazole-trimethoprim [Bactrim DS] 800-160 mg tablet 1 tab PO BID 5 Days Qty: 10 0RF No Action nitrofurantoin monohyd/m-cryst 100 mg capsule 100 mg PO DAILY Patient Comments: TAKE 1 CAPSULE BY MOUTH TWICE A DAY FOR 7 DAYS cyclobenzaprine 10 mg Tablet 10 mg PO TID atorvastatin 40 mg Tablet 40 mg PO DAILY propranolol 10 mg Tablet 10 mg PO BID citalopram 20 mg Tablet 20 mg PO DAILY ropinirole 0.5 mg Tablet 0.5 mg PO TID omeprazole 20 mg Capsule,Delayed Release(Dr/Ec) 20 mg PO HS rivaroxaban 20 mg Tablet 20 mg PO QPMWITHMEAL Trelegy Ellipta 100-62.5-25 mcg Blister With Device 1 inh INHALATION DAILY Referrals Follow up/Referrals: Riley Hunter MD [Primary Care Provider, Medical] - See instructions Activity Restrictions/Add. Instructions Additional Instructions/Restrictions: Please keep your follow-up with your surgeon in the upcoming days/weeks. Please follow-up with your PCP. Please take your medication as prescribed. Please return to the emergency department with any worsening symptoms to include worsening abdominal pain vomiting or decrease in bowel movements. Clinical Impressions Clinical Impression: Ileus, UTI (urinary tract infection) Hematuria Qualifiers: Hematuria type: gross Qualified Code(s): R31.0 - Gross hematuria Instructions Patient Instructions: DI for Urinary Tract Infection (UTI) Print Language Print Language: Latvian Discharge ED Provider: Chano Combs General Adult HPI <RANDI De Souza - Last Filed: 01/20/25 17:31> General Chief complaint: Urogenital-Male Stated complaint: bleeding/dark colored blood, surgery 01/18/25 Time Seen by Provider: 01/20/25 13:25 Mode of Arrival: Ambulatory Source of Information: Patient and Spouse Description of Symptoms (Recalled from ER Triage Doc. by RN): patient presents for bloody urine following a surgery he had to remove his bladder on 01/11 at . the patient stated his sirgery was 7 hours, he stayed at for 5 days following, and was ultimately discharged home with a trejo cath. the called the surgeon that did the procedure and they said to come be evaluated in the ED or possible infection adn possible blood transfusion. History of Present Illness HPI narrative: 69-year-old male presents to the emergency department accompanied by his significant other for a several day history of hematuria, some waxing and waning abdominal pain and distention, patient tells me that he had a significant bladder cancer removal and bladder removal with urostomy placed on 01/11 at [facility], patient was discharged On 01/15, tells me they contact [facility] urology oncology team, stated come to the nearest emergency department because of concern for infection/ blood loss , with recent hematuria and the patient's urostomy bag. Patient denies any fever chills chest pain shortness of breath, does have some abdominal pain at times no nausea no vomiting no constipation no diarrhea, patient has been following his postoperative restrictions, patient is a current everyday smoker, former alcohol use, denies any other illicit drug use, patient had previous chemotherapy 1 month ago, no radiation therapy, other past medical history consistent with BPH adrenal nodule, SEDA, MDD, GERD, patient is on anticoagulant therapy but he is unsure, patient had previous anticoagulation therapy with Xarelto, COPD, previous history of colectomy, prostatectomy,. Initial triage vitals are unremarkable. Please note that above description of symptoms, in this electronic medical record under categorization of recalled from ER triage doctor by RN are reflective of an initial nursing assessment, however, is not reflective of my full history and physical exam that was personally taken and clarified. Consequentially, this preceding description of symptoms, which may include the patient's categorized chief complaint in the EMR, do not reflect my personal clinical impression, and the ultimate description of history of present illness and patient stated complaints should be deferred to this section of the note. Unless stated otherwise or congruent with this section of the note, additional signs, symptoms, or incongruence should be interpreted as inaccurate with my clinical impression. Onset (ago): day(s) Related Data Home Medications ?Medication ?Instructions ?Recorded ?Confirmed atorvastatin 40 mg tablet 40 mg PO DAILY 11/27/2203/18 citalopram 20 mg tablet 20 mg PO DAILY 11/27/2203/18 cyclobenzaprine 10 mg tablet 10 mg PO TID 11/27/22 Held on 03/20/24. Instructions: Resume on 04/10/24. This medication can cause dizziness, falls, drowsiness. I would encourage stopping it. fluticasone fur. 100 mcg-umeclid 1 inh inhalation MARTHA Y 11/27/22 04/01/24 62.5 mcg-vilant 25 mcg inhalat.powder (Trelegy Ellipta) omeprazole 20 mg capsule,delayed 20 mg PO HS 11/27/22 04/01/24 release propranolol 10 mg tablet 10 mg PO BID 11/27/22 rivaroxaban 20 mg tablet 20 mg PO QPMWITHMEAL 3 04/01/24 ropinirole 0.5 mg tablet 0.5 mg PO TID 11/27/2204/01 nitrofurantoin 100 mg PO DAILY 03/30/24 monohydrate/macrocrystals 100 mg capsule Previous Rx's ?Medication ?Instructions ?Recorded sulfamethoxazole 800 1 tab PO BID 5 days #10 tabs 01/20/25 mg-trimethoprim 160 mg tablet (Bactrim DS) Allergies Allergy/AdvReac Type Severity Reaction Status Date / Time morphine (MORPHINE) Allergy Unknown Unknown Verified 04/03/24 07:10 allergy reaction [facility] <RANDI De Souza - Last Filed: 01/20/25 17:31> [facility] Disclaimer: The information contained in this section may have been updated after the patient was seen, as this information can be updated by other users. Medical History Colon cancer Cataract COPD (chronic obstructive pulmonary disease) GERD (gastroesophageal reflux disease) Peripheral vascular disease Surgical History H/O cataract removal with insertion of prosthetic lens History of foot surgery History of knee replacement Hx of cholecystectomy Hx of appendectomy History of colon resection Family History Other Family history of heart disease Social History Smoking Status: Current every day smoker years smoked: 50 how long ago did patient quit smoking: February 2024 quit status: considering quitting alcohol intake: never current occupational status: unemployed Travel in the last 8 weeks?: None Have you lived/traveled outside [place] in past 30 days?: No Contact w/someone who lives/traveled outside US past 30 days?: No Exposure to someone with infectious disease in past 14 days?: No Do you have a fever (greater than 100.4 F or 38 C)?: No Have you tested positive for COVID-19?: No Exposed to someone with COVID-19 in past 14 days?: No Do you have a sore throat?: No Do you have a cough?: No Do you have any weakness?: No Do you have any diarrhea?: No Are you experiencing any unusual bleeding?: No Do you have any muscle aches/pain?: No Do you have any abdominal pain?: No Are you experiencing loss of taste or smell?: No Other Medical History Have you received the Flu Vaccine for this season: No Have you received the Pneumonia Vaccine: No <RANDI De Souza - Last Filed: 01/20/25 17:31> ROS Obtained: Yes All systems reviewed & no additional complaints except as documented Physical Exam <RANDI De Souza - Last Filed: 01/20/25 17:31> General General appearance: alert and in no apparent distress Head Head exam: atraumatic and normocephalic Eye Eye exam: Present PERRL and EOMI ENT ENT exam: Present mucous membranes moist Neck Neck exam: Present normal inspection Chest Chest inspection: Present normal inspection and symmetric chest wall rise Respiratory Respiratory exam: Present normal lung sounds bilaterally; Absent respiratory distress Cardiovascular Cardiovascular exam: Present regular rate and normal rhythm Abdominal Exam Abdominal exam: Present soft, distention and tenderness; Absent guarding, rebound or rigidity Abdominal tenderness: Present diffuse and mild Comment: Urostomy bag in place, adequate output, no evidence of any wound dehiscence or drainage, no erythema around the urostomy site, does have some hematuria/dark- colored urine in the patient's bag Extremities Exam Extremities exam: Present normal inspection Neurological Exam Neurological exam: Present alert and oriented X3 Psychiatric Psychiatric exam: Present normal affect Skin Skin exam: Present warm and dry Medical Decision Making <RANDI De Souza - Last Filed: 01/20/25 17:31> Medical Records Medical records reviewed: Yes I reviewed the patient's medical records. Screening: Per USPSTF and CDC recommendations, given the prevalence of disease in our region, it is our hospital?s policy to screen for HIV and viral Hepatitis for all patients aged 18 and over and those with ongoing risk factors. Natan Inquiry Pt receiving controlled substance: No Natan was queried for this patient: No Vital Signs: 01/20/25 13:14 01/20/25 14:00 01/20/25 15:00 Temperature 98.1 F Temperature Source Oral Pulse Rate 86 Pulse Rate [Right Radial] 85 Respiratory Rate 18 Blood Pressure 105/66 L 110/59 L Blood Pressure [Right Arm] 100/60 L Blood Pressure Mean 76 Blood Pressure Mean [Right Arm] 73 Blood Pressure Source Blood Pressure Source [Right Arm] Automatic Cuff Blood Pressure Position Blood Pressure Position [Right Arm] Sitting 02 Sat by Pulse Oximetry 92 L 93 L Oxygen Delivery Method Room Air 01/20/25 15:30 01/20/25 16:51 01/20/25 17:00 Temperature Temperature Source Pulse Rate 91 H 92 H Pulse Rate [Right Radial] Respiratory Rate 20 Blood Pressure 130/68 124/74 130/69 Blood Pressure [Right Arm] Blood Pressure Mean 88 Blood Pressure Mean [Right Arm] Blood Pressure Source Automatic Cuff Blood Pressure Source [Right Arm] Blood Pressure Position Supine Blood Pressure Position [Right Arm] 02 Sat by Pulse Oximetry 92 L 92 L Oxygen Delivery Method Room Air Room Air Lab Data Lab results reviewed: Yes I reviewed the patient's lab results. Lab Results 01/20/25 13:53: WBC 7.3, RBC 2.56 L, Hgb 8.1 L, Hct 25.5 L, MCV 99.6 H, MCH 31.6 H, MCHC 31.8, RDW 16.1, Plt Count 435 H, MPV 9.2, Neut % (Auto) 62.2, Lymph % (Auto) 20.7, [place] % (Auto) 5.6, Eos % (Auto) 8.9, Baso % (Auto) 0.5, Neut # (Auto) 4.5, Lymph # (Auto) 1.5, [place] # (Auto) 0.4, Eos # (Auto) 0.7 H, Baso # (Auto) 0.0, PT 10.6, INR 0.95, APTT 24.9, Sodium 138, Potassium 4.0, Chloride 101, Carbon Dioxide 33 H, Anion Gap 8.0, BUN 16, Creatinine 0.80, Estimated Creat Clear 89, Estimated GFR 96, Est GFR ( Amer) 116, Glucose 109 H, Lactate 0.7, Calcium 8.6, Total Bilirubin 0.3, AST 23, ALT 15, Alkaline Phosphatase 78, Total Protein 6.8, Albumin 4.0, Globulin 2.8, Albumin/Globulin Ratio 1.4 01/20/25 14:45: Urine Color Yellow, Urine Appearance Clear, Urine pH 6.5, Ur Specific [place] 1.010, Urine Protein 2+ A, Urine Glucose (UA) Negative, Urine Ketones Trace, Urine Blood 3+ A, Urine Nitrate Positive A, Urine Bilirubin 1+ A, Urine Urobilinogen 1.0, Ur Leukocyte Esterase Trace, Urine RBC Tntc, Urine WBC None, Ur Squamous Epith Cells None, Urine Bacteria None 01/20/25 13:53 01/20/25 13:53 Orders (Tests/Meds): ED MEDICATIONS Discontinued Medications Generic Name Dose Route Start Last Admin Trade Name Freq PRN Reason Stop Dose Admin Iopamidol 75 ml 01/20/25 14:38 01/20/25 14:39 Iopamidol-370 (76%);100ml Bottle IV 01/20/25 14:39 75 ml ONCE ONE Administration Sodium Chloride 10 ml 01/20/25 14:38 01/20/25 14:38 Sodium Chloride 0.9% 10ml Syr (Rad Only) IV 01/20/25 14:39 10 ml ONCE ONE Administration ORDERS Category Date Time Status CT abdomen pelvis w con Stat Cat Scan 01/20/25 13:57 Completed Complete Blood Count Auto Diff Stat Lab 01/20/25 13:53 Completed Comprehensive Metabolic Panel Stat Lab 01/20/25 13:53 Completed Lactic Acid Stat Lab 01/20/25 13:53 Completed PT INR [Prothrombin Time INR] Stat Lab 01/20/25 13:53 Completed PTT [Activated Partial Thrombo Time] Stat Lab 01/20/25 13:53 Completed Urinalysis and Microscopic Stat Lab 01/20/25 14:45 Completed Urine Culture Stat Micro 01/20/25 14:45 Received Medical Decision Narrative: 69-year-old male presents emergency department with hematuria abdominal pain for several days, see HPI for detailed past medical history, differential diagnose include but not limited to, urethral outflow obstruction, malignancy, acute UTI, acute pyelonephritis, acute kidney injury, bowel obstruction, ileus, hydronephrosis, postoperative bleeding I discussed with the patient patient appears to have Garret Will obtain basic laboratory studies, lactic acid level PT/INR, urinalysis, coags, CT ab pelvis with contrast to be obtained for further evaluation/characterization. CMP is notable for no lactic acidosis CBC is notable for erythrocyte opinion at 2.5, hemoglobin is 8.1 hematocrit 25.5, MCV is mildly elevated at 99.6, thrombocytosis of 435, unsure of chronicity, however patient's significant other at bedside states that the patient did require blood transfusion , intraoperatively. Coags normal limits. UA is positive for nitrites 3+ hematuria, 2+ proteinuria, 1+ bilirubin. Microscopic analysis of the patient's urine is noted for trace leukocytosis too numerous to count RBCs no WBCs no urine bacteria I reviewed the patient's CT abdomen pelvis with contrast along the corresponding radiologic report, interval cystoprostatectomy with neobladder, resolved left lower lobe pulmonary nodules, mildly prominent small bowel loops in the lower abdomen favor ileus, AVN of the right femoral head. I discussed this patient's case with Maddi Maciel APRN at the [facility] at approximately 5:15 PM, she was able to get the patient's urology oncologist on the line , who I discussed this patient's case in depth with as well as he reviewed the CT imaging, recommends treating the patient's urinalysis findings and hematuria with Bactrim, he will follow-up with the patient in the upcoming days, does have slated appointment with his office. He believes that the patient's ileus is stable, as patient has partial small bowel obstruction inpatient last week after the surgery, due to numerous adhesions, as long as patient is passing gas and no nausea and vomiting no need for intervention at this time. I discussed these results/recommendations with the patient and family the bedside patient and family are in agreement with current discharge plan/treatment plan. Will prescribe the patient Bactrim DS p.o. twice daily for 5 days, patient will keep his follow-up with urology oncologist, patient family are given very strict ED return precautions. Patient and family voiced understanding and agreement with current treatment plan/discharge plan. <Chano Combs MD - Last Filed: 01/20/25 15:44> Vital Signs: 01/20/25 13:14 01/20/25 14:00 01/20/25 15:00 Temperature 98.1 F Temperature Source Oral Pulse Rate 86 Pulse Rate [Right Radial] 85 Respiratory Rate 18 Blood Pressure 105/66 L 110/59 L Blood Pressure [Right Arm] 100/60 L Blood Pressure Mean 76 Blood Pressure Mean [Right Arm] 73 Blood Pressure Source Blood Pressure Source [Right Arm] Automatic Cuff Blood Pressure Position Blood Pressure Position [Right Arm] Sitting 02 Sat by Pulse Oximetry 92 L 93 L Oxygen Delivery Method Room Air 01/20/25 15:30 01/20/25 16:51 01/20/25 17:00 Temperature Temperature Source Pulse Rate 91 H 92 H Pulse Rate [Right Radial] Respiratory Rate 20 Blood Pressure 130/68 124/74 130/69 Blood Pressure [Right Arm] Blood Pressure Mean 88 Blood Pressure Mean [Right Arm] Blood Pressure Source Automatic Cuff Blood Pressure Source [Right Arm] Blood Pressure Position Supine Blood Pressure Position [Right Arm] 02 Sat by Pulse Oximetry 92 L 92 L Oxygen Delivery Method Room Air Room Air Lab Data Lab Results 01/20/25 13:53: WBC 7.3, RBC 2.56 L, Hgb 8.1 L, Hct 25.5 L, MCV 99.6 H, MCH 31.6 H, MCHC 31.8, RDW 16.1, Plt Count 435 H, MPV 9.2, Neut % (Auto) 62.2, Lymph % (Auto) 20.7, [place] % (Auto) 5.6, Eos % (Auto) 8.9, Baso % (Auto) 0.5, Neut # (Auto) 4.5, Lymph # (Auto) 1.5, [place] # (Auto) 0.4, Eos # (Auto) 0.7 H, Baso # (Auto) 0.0, PT 10.6, INR 0.95, APTT 24.9, Sodium 138, Potassium 4.0, Chloride 101, Carbon Dioxide 33 H, Anion Gap 8.0, BUN 16, Creatinine 0.80, Estimated Creat Clear 89, Estimated GFR 96, Est GFR ( Amer) 116, Glucose 109 H, Lactate 0.7, Calcium 8.6, Total Bilirubin 0.3, AST 23, ALT 15, Alkaline Phosphatase 78, Total Protein 6.8, Albumin 4.0, Globulin 2.8, Albumin/Globulin Ratio 1.4 01/20/25 14:45: Urine Color Yellow, Urine Appearance Clear, Urine pH 6.5, Ur Specific [place] 1.010, Urine Protein 2+ A, Urine Glucose (UA) Negative, Urine Ketones Trace, Urine Blood 3+ A, Urine Nitrate Positive A, Urine Bilirubin 1+ A, Urine Urobilinogen 1.0, Ur Leukocyte Esterase Trace, Urine RBC Tntc, Urine WBC None, Ur Squamous Epith Cells None, Urine Bacteria None Orders (Tests/Meds): ED MEDICATIONS Discontinued Medications Generic Name Dose Route Start Last Admin Trade Name Denny PRN Reason Stop Dose Admin Iopamidol 75 ml 01/20/25 14:38 01/20/25 14:39 Iopamidol-370 (76%);100ml Bottle IV 01/20/25 14:39 75 ml ONCE ONE Administration Sodium Chloride 10 ml 01/20/25 14:38 01/20/25 14:38 Sodium Chloride 0.9% 10ml Syr (Rad Only) IV 01/20/25 14:39 10 ml ONCE ONE Administration ORDERS Category Date Time Status CT abdomen pelvis w con Stat Cat Scan 01/20/25 13:57 Completed Complete Blood Count Auto Diff Stat Lab 01/20/25 13:53 Completed Comprehensive Metabolic Panel Stat Lab 01/20/25 13:53 Completed Lactic Acid Stat Lab 01/20/25 13:53 Completed PT INR [Prothrombin Time INR] Stat Lab 01/20/25 13:53 Completed PTT [Activated Partial Thrombo Time] Stat Lab 01/20/25 13:53 Completed Urinalysis and Microscopic Stat Lab 01/20/25 14:45 Completed Urine Culture Stat Micro 01/20/25 14:45 Received Critical Care <Chano Combs MD - Last Filed: 01/20/25 15:44> Critical Care Time Critical Care Time: No
--- NOTE | 2025-01-20 13:57 | CT_ITS ---
FINAL REPORT TECHNIQUE: Thin section axial images are obtained through the abdomen and pelvis after intravenous contrast. Reconstruction images were obtained from the axial data. Exam was performed using dose reduction techniques. CLINICAL HISTORY: Hematuria, ABD pain,recent urostomy, bladder CA COMPARISON: 03/17/2024 FINDINGS: LUNG BASES: Previously seen left lower lobe nodules are no longer present. There is bibasilar atelectasis. Heart size is normal. LIVER: Homogeneous. No focal lesion. GALLBLADDER/BILIARY SYSTEM: Gallbladder is absent. No biliary dilatation. SPLEEN: Unremarkable. PANCREAS: Unremarkable. ADRENALS: Nodularity of the left adrenal gland is stable. Right adrenal gland is unremarkable. KIDNEYS/URETERS/BLADDER: There are bilateral ureteral stents which extend to a neobladder in the right lower quadrant. No hydronephrosis, renal mass, or renal stone. GI TRACT: No small bowel obstruction or dilatation. Appendix not visualized. No secondary findings of appendicitis. There are mildly prominent, fluid-filled small bowel loops in the lower abdomen which may represent mild ileus. There is a right lower quadrant ostomy. Remaining GI tract is without acute abnormality. PELVIC ORGANS: Patient is status post cystoprostatectomy. LYMPH NODES/RETROPERITONEUM/MESENTERY: No lymphadenopathy. No abdominal aortic aneurysm. ABDOMINAL WALL: The abdominal wall is intact. FREE FLUID: Small amount of free fluid in the abdomen and pelvis is favored to be postoperative. BONES: There is AVN of the right femoral head. Otherwise, no acute osseous abnormality. IMPRESSION: 1. Interval cystoprostatectomy with neobladder. 2. Resolved left lower lobe pulmonary nodules. 3. Mildly prominent small bowel loops in the lower abdomen, favor ileus. 4. AVN of the right femoral head. Reviewed, Interpreted and Dictated by Christal Gonzalez MD Transcribed by Linda Almaraz Authenticated and [facility] [place]
[2025-01-20 14:11] LABS: Albumin Level 4.0 g/dl (3.5-5.0); Chloride 101 mmol/L (98-107)
[2025-01-20 14:12] LABS: Potassium 4.0 mmoL/L (3.5-5.1); Sodium 138 mmol/L (136-145)
[2025-01-20 14:14] LABS: Alanine Aminotransferase 15 U/L (12-78); Albumin/Globulin Ratio 1.4 (1.1-1.8); Alkaline Phosphatase 78 U/L (38-126); Anion Gap 8.0 mEq/L (5-15); Aspartate Amino Transferase 23 U/L (17-59); Bilirubin,Total 0.3 mg/dl (0.2-1.3); Blood Urea Nitrogen 16 mg/dl (9-20); Carbon Dioxide 33 mmol/L (22.0-30.0); Creatinine Clearance Estimated 89 mL/min (50-200); Creatinine,Serum 0.80 mg/dl (0.66-1.25); Estimated Glomerular Filt Rate 96 ml/min (>60); GFR (African American) 116 ML/MIN (>60); Globulin 2.8 g/dL (1.3-3.2); Total Protein,Serum 6.8 g/dl (6.3-8.2)
[2025-01-20 14:15] LABS: Calcium 8.6 mg/dl (8.4-10.2); Glucose 109 mg/dl (74-100)
[2025-01-20 14:26] LABS: Hematocrit 25.5 % (42.0-52.0); Hemoglobin 8.1 g/dL (14.1-18.0); Immature Granulocytes % 2.1 %; Mean Corpuscular HGB Conc 31.8 g/dL (31.8-35.4); Mean Corpuscular Hemoglobin 31.6 pg (27.0-31.2); Mean Corpuscular Volume 99.6 fl (80-94); Nucleated Red Blood Cells % 0.3 %; Platelet Count 435 K/mm3 (142-424); Red Blood Count 2.56 M/mm3 (4.60-6.20); Red Cell Distribution Width-SD 58.3 fL; White Blood Count 7.3 K/mm3 (4.8-10.8)
[2025-01-20] MEDS: SODIUM CHLORIDE 0.9% 10ML SYR (RAD ONLY) 10 ML IV (14:38)
[2025-01-20] MEDS: IOPAMIDOL-370 (76%);100ML BOTTLE 75 ML IV (14:39)
[2025-01-20 14:45] LABS: Activated Partial Thrombo Time 24.9 seconds (22.8-30.6); INR 0.95 (0.9-1.1); Prothrombin Time 10.6 seconds (10.1-12.5)
[2025-01-20 14:57] LABS: Microscopic, Urine URINE MICROSCOPIC (MICROSCOPIC)
[2025-01-20 15:17] LABS: Color,Urine YELLOW (Yellow); Glucose,Urine (UA) Negative (Negative); Ketones,Urine TRACE (Negative); Leukocyte Esterase,Urine TRACE (Negative); PH,Urine 6.5 (5.0-8.5); Protein,Urine 2+ (Negative); Specific Gravity, Urine 1.010 (1.005-1.030); Urobilinogen,Urine 1.0 EU/dl (0.2)
[2025-01-20 15:20] LABS: Bilirubin,Urine 1+ (Negative)
[2025-01-20 15:37] LABS: RBC,Urine TNTC #/hpf (0-3)
--- NOTE | 2025-01-20 17:15 | PC.NURSE ---
Called [facility] per RANDI Knight for consult vs tx due to this pt having an Ileous last Sat for Bladder cancer by Dr Hendricks. Images were powershared and Gaston Maciel was speaking with RANDI Knight at this time.
--- NOTE | 2025-01-25 15:30 | PC.NURSE ---
Urine culture reviewed by Dr. Polo. Antibiotics changed to Levaquin. Sent to [facility]. Attempted to call both phone numbers listed on patient account, 1st number does not work and left message at second number for patient to return call.
== END 2025-01-20 17:42 | disposition home or self-care (01) ==
PROVIDERS: Physician Assistant; Emergency Provider Student in an Organized Health Care Education/Training Program; PCP Family Medicine
DX: R10.84 Generalized abdominal pain (principal); N39.0 Urinary tract infection, site not specified; B96.83 Acinetobacter baumannii as the cause of diseases classified elsewhere; B96.1 Klebsiella pneumoniae [K. pneumoniae] as the cause of diseases classified elsewhere; R31.0 Gross hematuria; K56.7 Ileus, unspecified; F17.210 Nicotine dependence, cigarettes, uncomplicated; Z93.6 Other artificial openings of urinary tract status
CPT/HCPCS: 74177; 80053; 81001; 83605; 85025; 85610; 85730; 87086; 87088; 87186; 99285; Q9967

== ENCOUNTER 2025-02-04 12:36 | Emergency (ER) | payer MEDICARE, MEDICAID, SELFPAY ==
--- OUTSIDE RECORDS SUMMARY | 2024-12-24 12:15 | XMS_ITS | Encounter Summary ---
Author Organization Healthcare Address [address] [place] [address] Care Team Providers Care Unitizer Name Role Phone Riley Hunter MD Primary Care Provider [phone] Encounter Details Date Type Department Care Team (Late st Contact Info) Description 12/24/2024 1:15 PM EDT [facility] [address] [place] [address] Social History Tobacco Use Types Packs/Day Years Used Date Smoking Tobacco: Former Cigarettes 1 53.9 1 971 - 2024 Passive Smoke Exposure: Past Smokeless Tobacco: Never Alcohol Use Standard Drinks/Week Comments Not Currently 0 (1 standard drink = 0.6 oz pur e alcohol) quit 2020. Hx 12 pack/ week. PHQ-2 Answer Date Recorded Patient Health Questionnaire-2 Score 0 11/13/2024 PHQ-9 Answer Date Recorded Patient Health Questionnaire-9 Score 0 11/09/2024 Humiliation, Afraid, Rape, and Kick questionnair e Answer Date Recorded Within the last year, have y ou been afraid of your partner or ex-partner? No 10/27/2024 Within the last year, have y ou been humiliated or emotionally abused in other ways by your partner or ex-partner? No Within the last year, have y ou been kicked, hit, slapped, or otherwise physically hurt by your partner or ex-partner? No 10/27/2024 Within the last year, have y ou been raped or forced to have any kind of sexual activity by your partner or ex-partner? No 10/27/2024 Social Connection and Isolation Panel Answer Date Recorded Frequency of Communication with Friends and Fami ly Not on file 10/27/2024 Frequency of Social Gatherin gs with Friends and Family Not on file 10/27/2024 Attends Faith Services Not on file 10/27 Active Member of Clubs or Organizations Not on f ile 10/27/2024 Attends Club or Organization Meetings Not on jennifer e 10/27/2024 Are you , , di vorced, , never , or living with a partner? Living with partner 10/27/2024 AUDIT-C Answer Date Recorded Q1: How often do you have a drink containing alcohol? Never 11/09/2024 Q2: How many drinks containi ng alcohol do you have on a typical day when you are drinking? Patient does not drink Q3: How often do you have si x or more drinks on one occasion? Never 11/09/2024 Overall Financial Resource Strain (CARDIA) Answe r Date Recorded How hard is it for you to pa y for the very basics like food, housing, medical care, and heating? Somewhat hard 10/27/2024 Hunger Vital Sign Answer Date Recorded Within the past 12 months, y ou worried that your food would run out before you got the money to buy more. Sometimes true Within the past 12 months, t he food you bought just didn't last and you didn't have money to get more. Never true 02/2025 PRAPARE - Transportation Answer Date Re corded In the past 12 months, has l ack of transportation kept you from medical appointments or from getting medications? No 10/16 In the past 12 months, has l ack of transportation kept you from meetings, work, or from getting things needed for daily living? No 10/27/2024 Housing Stability Vital Sign Answer Mario e Recorded In the last 12 months, was t here a time when you were not able to pay the mortgage or rent on time? No 10/27/2024 In the past 12 months, how m any times have you moved where you were living? 0 10/27/2024 At any time in the past 12 m [facility], were you homeless or living in a chcf (including now)? No 10/27/2024 Utilities Answer Date Recorded In the past 12 months has th e electric, gas, oil, or water company threatened to shut off services in your home? No 10/27/2024 PHQ-2A Answer Date Recorded Depression Risk 0 11/09/2024 PHQ-9A Answer Date Recorded Depression Risk Score 0 11/09/2024 Sex and Gender Information Value Date Recorded Sex Assigned at Male 05/11/2024 10:00 AM EST Legal Sex Male 7:27 PM EDT Gender Identity Not on file Sexual Orientation Not on file documented as of this encounter Last Filed Vital Signs Vital Sign Reading Time Taken Comments Blood Pressure - - Pulse - - Temperature - - Respiratory Rate - - Oxygen Saturation - - Inhaled Oxygen Concentration - - Weight 94.3 kg (208 lb) 12/24/2024 12:21 PM EDT Height - - Body Mass Index 28.21 11/20/2024 9:22 AM EDT documented in this encounter Miscellaneous Notes * PAT Evaluation Note - Yolanda Dougherty APRN - 12/24/2024 1:15 PM EDT Images from the original note were not included. HPI Ronaldo Islas is a 69 y.o. male who presents with Pre-op Diagnosis * Malignant neoplasm of urinary bladder, unspecified site [C67.9] now scheduled for CYSTECTOMY (N/A). with Dejuan Hendricks MD on 01/11/2025 at [facility] at [facility]. Past Medical History[1] Family History[2] Social History[3] SURGICAL HISTORY: Surgical History[4] Allergies[5] MEDICATIONS: Current Medications[6] 12/24/2024 12:21 PM Vitals Weight (kg) 94.348 kg BMI 28.21 kg/m2 BSA (m2) 2.19 m2 Lab Results Component Value Date WBC 5.63 11/20/2024 HGB 11.1 (L) 11/20/2024 HCT 34.2 (L) 11/20/2024 MCV 96 11/20/2024 PLT 326 11/20/2024 Lab Results Component Value Date GLUCOSE 105 (H) 11/20/2024 CALCIUM 9.7 11/20/2024 NA 140 11/20/2024 K 4.8 11/20/2024 CO2 29 11/20/2024 CL 99 11/20/2024 BUN 13 11/20/2024 CREATININE 0.78 11/20/2024 ROS Anesthesia: Date of last anesthetic: 08/03/24 - GA with TURBT, USING BIPOLAR CAUTERY PROBE, WITH SALINE IRRIGATION. No problems with GA. Difficult Airway: No Final Airway Type: endotracheal airway Mask Difficulty Assessment: 2 - vent by mask + OA or adjuvant +/- NMBA Final Endotracheal Airway: ETT Cuffed: Yes Cormack-Lehane Classification: grade I - full view of glottis Technique Used For Successful Placement: direct laryngoscopy Devices/Methods Used in Placement: intubating stylet Insertion Site: oral Blade Type: Cassandra Blade Size: 4 ETT Size (mm): 7.5 Number of Attempts at Approach: 1. history of previous anesthesia and obstructive sleep apnea (intolerant to cpap.). Does not have a history of anesthetic complications, malignant hyperthermia, motion sickness and PONV. Anesthesia ROS additional comments: Can lay flat on back or side. Able to move head/neck without trouble, and able to open mouth wide, per pt. Via phone. Cardiovascular: Patient's ECG reviewed. carotid artery disease and hyperlipidemia. Does not have angina, atrial fibrillation, CAD, CHF (Bilat. carotid artery stenosis.), dyspnea, dysrhythmias, murmur, past HI or syncope. no hypertension: Exercise tolerance is 2 flights of stairs. Does not have chest pain. Cardio additional comments: 10/26/24 - Echo - LVEF 60-65%. The right ventricular systolic function is normal. Unable to estimate the right ventricular systolic pressure (RVSP) due to inadequate TR signal. Valves are unremarkable. 01/17/24 - Carotids - RIGHT -There is a right proximal internal carotid artery mildly obstructive lesion noted, with an estimated 1-39% stenosis. Calcific atherosclerotic plaque causing acoustic shadowing does not allow adequate sampling of velocities in the right internal carotid artery. Significant stenosis cannot be excluded. There is a right proximal subclavian artery lesion with >50% stenosis. LEFT - There is a left proximal internal carotid artery mildly obstructive lesion noted, with an estimated 1-39% stenosis by velocity and ICA/CCA ratio; However, a higher grade stenosis cannot beruled out secondary to plaque morphology and abnormal waveform. Antegrade flow visualized in the bilateral vertebral artery. . Respiratory: home oxygen (Uses O2 @ 4L/NC only at night.). Patient has no dyspnea.no asthma: COPD (uses inhalers, and neb. tx. follows up with Pulm.): breathing at baseline.Has not had an upper respiratory infection in last 30 days. Has not had COVID in the last 30 days. Respiratory ROS additional comments: 11/09/24 - Pulm. - FEV1 30%; Grade 3/ Group E. CAT 18. PFTs today with moderate obstruction, positive but insignificant BD response, mild restriction and air trapping, and DLCO corrected for Hgb was moderately reduced with IVC <90%. Hosp 10/23-10/27 for respiratory failure from COPDE, was not frequently exacerbating prior to this. Stop Trelegy and start BreztriHFA 2 puffs BID with spacer for better medication distribution as his FEV1 is 30%. Continue PRN MARTHA as reliever. Most recent CT imaging 11/04/2024 showed stable 3 mm RLL nodule, emphysema, and atelectasis and/or scarring in the lung bases (may explain his restriction). Pretracheal lymph node measuring 11 mm was unchanged, per Felicita Lindquist, HOISTER. HEENT: missing teeth (edentulous. doesn't wear the dentures.).Does not have difficulty swallowing, chippedteeth or loose teeth.Does not have temporomandibular joint syndrome. decreased vision (wears glasses.). Neurological: Does not have headaches. no seizures: Did not have a cerebrovascular accident.Does not have TIA. Neuro additional comments: Hx essential tremor in BLE. Hx depression. Musculoskeletal: Does not have multiple sclerosis. Musc/Skel/Integ additional comments: Hx RLS. Autoimmune: Does not have lupus. Integumentary: Negative skin ROS. Gastrointestinal: GERD: well controlled.hepatitis (Hepatitis C antibody test positive.). Does not have end stage liver disease. obese. GI/ additional comments: Hx polyps with spot on colon, s/p colon resection, and appendix. Genitourinary: Does not have chronic renal disease.bladder cancer (hematuria and had a bladder mass on CT. TURBT 04/2024 revealed high grade T1 urothelial cancer.). Does not have renal disease. 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 no problems since.). Received anticoagulation therapy. History of no pulmonary embolism. 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 no history of radiation Does not have AIDS, HIV, MRSA or tuberculosis. Hem/Lymph ROS additional comments: Takes chewable aspirin 81 mg daily for DVT history. Endocrine/Metabolic: does not have diabetes mellitus. Does not have thyroid disorder. Does not have gout. Lab Results Component Value Date WBC 5.63 11/20/2024 HGB 11.1 (L) 11/20/2024 HCT 34.2 (L) 11/20/2024 MCV 96 11/20/2024 PLT 326 11/20/2024 Lab Results Component Value Date GLUCOSE 105 (H) 11/20/2024 BUN 13 11/20/2024 CREATININE 0.78 11/20/2024 BCR 17 11/20/2024 NA 140 11/20/2024 K 4.8 11/20/2024 CL 99 11/20/2024 CO2 29 11/20/2024 ALBUMIN 4.2 11/20/2024 ALKPHOS 69 11/20/2024 BILITOT 0.3 11/20/2024 Lab Results Component Value Date HGBA1C 6.1 (H) 10/23/2024 Lab Results Component Value Date INR 1.0 10/23/2024 INR 1.0 04/22/2024 Visit Vitals Wt 94.3 kg (208 lb) BMI 28.21 kg/m?? Smoking Status Former BSA 2.19 m?? Physical Exam Anesthesia Plan ASA 3 Anesthesia technique(s) discussed with the patient/family: general Comment: RUDOLPH phone screen with pt. Yolanda Dougherty APRN [1] Past Medical History: Diagnosis Date PONCE (acute kidney injury) PONCE (acute kidney injury) 04/22/24 Bladder mass COPD (chronic obstructive pulmonary disease) Depression GERD (gastroesophageal reflux disease) Lung mass [2] Family History Problem Relation Name Age of Onset Anesthesia problems Neg Hx Malig Hyperthermia Neg Hx [3] Social History Tobacco Use Smoking status: Former Current packs/day: 0.00 Average packs/day: 1 pack/day for 53.9 years (53.9 ttl pk-yrs) Types: Cigarettes Start date: 1970 Quit date: 2024 Years since quittin.8 Passive exposure: Past Smokeless tobacco: Never Vaping Use Vaping status: Never Used Substance Use Topics Alcohol use: Not Currently Comment: quit 2019. Hx 12 pack/ week. Drug use: Never [4] Past Surgical History: Procedure Laterality Date APPENDECTOMY BLADDER SURGERY 08/03/2024 TURBT, USING BIPOLAR CAUTERY PROBE, WITH SALINE IRRIGATION. CARPAL TUNNEL RELEASE Right CHOLECYSTECTOMY COLON SURGERY FINGER SURGERY Right middle FOOT SURGERY TOTAL KNEE ARTHROPLASTY Left TRANSURETHRAL RESECTION OF BLADDER TUMOR [5] Allergies Allergen Reactions Morphine Hives and Itching Breaks out in hives [6] Current Outpatient Medications: albuterol, Take 3 mL by nebulization every 6 hours as needed for wheezing or shortness of breath (or cough). albuterol, Inhale 2 puffs every 4 to 6 hours as needed for shortness of breath or wheezing. aspirin, Chew 1 tablet every morning. atorvastatin, Take 1 tablet by mouth every morning. Breztri Aerosphere, Inhale 2 puffs 2 times a day. Use with spacer. Rinse mouth after each use. Vitamin D-3, Take 1 tablet by mouth daily. citalopram, Take 1 tablet by mouth every morning. omeprazole, Take 1 capsule by mouth every morning. polyethylene glycol, Take 17 g by mouth 2 times a day. propranolol, Take 1 tablet by mouth 2 times a day. rOPINIRole, Take 1 tablet by mouth 3 times a day. * Preprocedure Instructions - Yolanda Dougherty APRN - 12/24/2024 1:15 PM EDT Home Medication Instructions Current Medications Medication Instructions albuterol (Proventil) (2.5 MG/3ML) 0.083% nebulizer solution Take as needed albuterol 108 (90 Base) MCG/ACT inhaler Take as needed ASPIRIN 81 MG chewable tablet Take morning of surgery atorvastatin (Lipitor) 40 MG tablet Take morning of surgery Rpyfgez-Oikfvwozcxj-Jtnpbbcddu (Breztri Aerosphere) 160-9-4.8 MCG/ACT aerosol Take morning of surgery cholecalciferol (Vitamin D-3) 5,000 Units tablet Hold 7 days before surgery citalopram (CeleXA) 20 MG tablet Take morning of surgery omeprazole (PriLOSEC) [address] capsule Take morning of surgery polyethylene glycol (Miralax) 17 g packet Hold day of surgery propranolol (Inderal) 10 MG tablet Take morning of surgery rOPINIRole (Requip) 0.5 MG tablet Take morning of surgery General Preoperative Instructions You will be called the business day before surgery with your arrival time Do not eat anything after midnight except water with your medications unless other instructions aregiven. Can drink clear liquids (water, Gatorade, non- carbonated sports drinks, or apple juice) up until 2 hours before arriving at the hospital. No alcohol or smoking prior to surgery Arrive on time to avoid delays Parking/Registration procedure explained You MUST have a responsible adult available for transport to and from hospital Visitation policy for the day of surgery reviewed Bring insurance card, photo ID, along with power of erisa attorney, guardianship or advanced directives if applicable Do not bring money, jewelry or other valuables Hibiclens bathing instructions reviewed if applicable Notify surgeon of fever, illness, any changes or if you decide not to have surgery Pediatric patients under 12 years of age (If applicable) No solid food or milk after midnight Formula 6 hours prior to arrival for surgery Breast milk 4 hours prior to arrival surgery Clear liquids 2 hours prior to arrival for surgery Diabetes Instructions (If applicable) Take diabetes medication as instructed You may have up to 4 ounces of apple juice 2 hours prior to arrival for surgery for low glucose documented in this encounter Plan of Treatment Upcoming Encounters Date Type Department Care Team (Late st Contact Info) Description 02/08/2025 1:30 PM EST Office Visit [facility] [address] [place] [address] Felicita Lindquist, HOISTER [address] [place] [address] 08/04/2025 9:40 AM EDT Appointment [facility] [address] [place] [address] 08/04/2025 12:00 PM EDT Office Visit [facility] [address] [place] [address] Dejuan Hendricks MD [address] [place] [address] 08/04/2025 12:00 PM EDT Clinical Support [facility] [address] [place] [id number] documented as of this encounter Goals Goal Patient Goal Type Associated Problems Recent Progress Patient-Stated? Author Autogenerat ed Goal Care Plan Autogenerated Problem No Yolanda Houser Autogenerat ed Goal Care Plan Autogenerated Problem No Yolanda Houser documented as of this encounter Visit Diagnoses Not on filedocumented in this encounter Additional Health Concerns Active Problems Noted Date Diagnosed Date Autogenerated Problem 07/30/2024 Autogenerated Problem 11/10/2024 Infection Onset Date Last Indicated Resolved Time MRSA 10/23/2024 10/23/2024 Assessment Noted Time PHQ-9 Depression Total Score: 0 11/10/19 10:34 AM EDT A fall risk assessment has been complete d for the patient 11/20/2024 9:21 AM EDT A Body Mass Index follow-up plan has been documented for the patient 11/09/2024 12:42 PM EDT documented as of this encounter Care Teams Unitizer Relationship Specialty Start Date End Date Riley Hunter MD [address] [place] [address] PCP - General 04/22/24 documented as of this encounter
--- OUTSIDE RECORDS SUMMARY | 2025-01-11 04:42 | XMS_ITS | Encounter Summary ---
Author Organization [facility] Address 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 Role Phone Riley Hunter MD Primary Care Provider [phone] Reason for Referral * Home Health (Routine) - Authorized Specialty Diagnoses / Procedures Referred By Ciaran nuñez Referred To Contact Home Health Services Diagnoses Bladder tumor Dejuan Hendricks MD [address] [address] Phone: tel: fax: Referral ID Status Reason Start Date Expiration Date Visits Requested Visits Authorized [id number] Authorized Specialty Services Required 5 07/15/2026 999 999 Reason for Visit * Auth/Cert (Routine) Specialty Diagnoses / Procedures Referred By Ciaran nuñez Referred To Contact Diagnoses Malignant neoplasm of urinary bladder, unspecified site Malignant neoplasm of urinary bladder, unspecified site (CMS/HCC) [C67.9] Procedures NE CYSTECTOMY,ILEAL CONDUIT/SIGMOID BLADDER NE REMV PROSTATE,RETROPUB,RADICAL CYSTECTOMY Dejuan Hendricks MD [address] [address] Phone: tel: fax: [facility] OPERATING ROOM [address] [place] [phone] Phone: tel: Referral ID Status Reason Start Date Expiration Date Visits Re quested Visits Authorized [id number] 1 2 Encounter Details Date Type Department Care Team (Latest Contact Info) Description 01/11/2025 5:42 AM EDT - 01/15/2025 2:39 PM EDT Hospital Encounter [facility] Inpatient [facility] [address] [place] [address] Dejuan Hendricks MD [address] [place] [id number] Bladder tumor (Primary Dx); Malignant neoplasm of urinary bladder, unspecified site (CMS/HCC); Bladder mass Discharge Disposition: Home or Self Care Social History Tobacco Use Types Packs/Day Years Used Date Smoking Tobacco: Former Cigarettes 1 53.9 1 971 - 2024 Passive Smoke Exposure: Past Smokeless Tobacco: Never Alcohol Use Standard Drinks/Week Comments Not Currently 0 (1 standard drink = 0.6 oz pur e alcohol) quit 2019. Hx 12 pack/ week. PHQ-2 Answer Date Recorded Patient Health Questionnaire-2 Score 0 11/13/2024 PHQ-9 Answer Date Recorded Patient Health Questionnaire-9 Score 0 11/09/2024 Humiliation, Afraid, Rape, and Kick questionnair e Answer Date Recorded Within the last year, have y ou been afraid of your partner or ex-partner? No 01/13/2025 Within the last year, have y ou been humiliated or emotionally abused in other ways by your partner or ex-partner? No Within the last year, have y ou been kicked, hit, slapped, or otherwise physically hurt by your partner or ex-partner? No 01/13/2025 Within the last year, have y ou been raped or forced to have any kind of sexual activity by your partner or ex-partner? No 01/13/2025 Social Connection and Isolation Panel Answer Date Recorded Frequency of Communication with Friends and Fami ly Not on file 10/27/2024 Frequency of Social Gatherin gs with Friends and Family Not on file 10/27/2024 Attends Adventism Services Not on file 10/27 Active Member [...] you got the money to buy more. Never true 01/14/20 Within the past 12 months, t he food you bought just didn't last and you didn't have money to get more. Never true 01/13/2025 PRAPARE - Transportation Answer Date Re corded In the past 12 months, has l ack of transportation kept you from medical appointments or from getting medications? No 12/17 In the past 12 months, has l ack of transportation kept you from meetings, work, or from getting things needed for daily living? No 01/13/2025 Housing Stability Vital Sign Answer Mario e Recorded In the last 12 months, was t here a time when you were not able to pay the mortgage or rent on time? No 01/13/2025 In the past 12 months, how m any times have you moved where you were living? 0 01/13/2025 At any time in the past 12 m [facility], were you homeless or living in a correction (including now)? No 01/13/2025 [facility] Utilities Answer Date Recorded In the past 12 months has th e electric, gas, oil, or water company threatened to shut off services in your home? No 01/13/2025 PHQ-2A Answer Date Recorded Depression Risk 0 [...] Sign Reading Time Taken Comments Blood Pressure 108/71 01/15/2025 7:42 AM EDT Pulse 84 01/15/2025 7:42 AM EDT Temperature 36.3 C (97.4 F) 01/15/2025 7:42 AM EDT Respiratory Rate 16 01/15/2025 7:42 AM EDT Oxygen Saturation 97% 01/15/2025 7:42 AM EDT Inhaled Oxygen Concentration - - Weight 95.3 kg (210 lb) 01/12/2025 9:55 AM EDT Height 182.9 cm (6' 0.01 ) 01/12/2025 9:55 AM ED T Body Mass Index 28.47 01/12/2025 9:55 AM EDT documented in this encounter Functional Status * AUDIT-C Score Answer Date of Assessment Author 0 11/09/2024 10:36 AM EDT Nieves Gaspar * Question Answer Date of Assessment Author Q1: How often do you have a drink containing alcohol? Never 11/09/2024 10:36 AM SHAWNT Nieves Gaspar Q2: How many drinks containing alcohol do you have on a typical day when you are drinking? Patient does not drink 11/09/2024 10:36 AM EDT Nieves Gaspar Q3: How often do you have six or more drinks on one occasion? Never 11/09/2024 10:36 AM EDT Nieves Gaspar * Over the past 2 weeks, how often have you been bothered by any of the following problems? Question Answer Date of Assessment Author Little interest or pleasure in doing things Not at all 11/13/2024 8:00 AM SHAWNT Lisa Barrera Feeling down, depressed, or hopeless Not at all 10/17 8:00 AM EDT Lisa Barrera Patient Health Questionnaire-2 Score 0 10/17 8:00 AM EDT Lisa Barrera * Question Answer Date of Assessment Author Trouble falling or staying a sleep, or sleeping too much Not at all 11/09/2024 10:34 AM EDT Nieves Gaspar Feeling tired or having abby le energy Not at all 11/09/2024 10:34 AM EDT Nieves Gaspar Poor appetite or overeating Not at all 11/09/2024 10 :34 AM SHAWNT Nieves Gaspar Feeling bad about yourself - or that you are a failure or have let yourself or your family down Not at all 11/09/2024 10:34 AM EDT Nieves Gaspar Trouble concentrating on thi ngs, such as reading the newspaper or watching television Not at all 11/09/2024 10:34 AM SHAWNT Nieves Gaspar Moving or speaking so slowly that other people could have noticed? Or the opposite - being so fidgety or restless that you have been moving around a lot more than usual. Not at all 11/09/2024 10:34 AM SHAWNT Nieves Gaspar Thoughts that you would be b priya off or hurting yourself in some way Not at all 11/13/2024 8:00 AM EDT Lisa Barrera Patient Health Questionnaire -9 Score 0 11/09/2024 10:34 AM EDT Nieves Gaspar * Calculated C-SSRS Risk Score (Lifetime/Recent) Answer Date of Assessment Author No Risk Indicated 01/11/2025 2:32 PM EDT Jennifer Santos RN * How difficult have these problems made it for you to do your work, take care of things at home, or get along with other people? Answer Date of Assessment Author Not difficult at all 11/09/2024 10:34 AM EDT Nieves Bartholomew * Question Answer Date of Assessment Author 1. Wish to be (Past 1 Month) No 01/11/2025 2:32 PM SHAWNT Jennifer Santos, RN 2. Non-Specific Active Suici cyndy Thoughts (Past 1 Month) No 01/11/2025 2:32 PM EDT Bulmaro Santos RN 6. Suicidal Behavior (Lifetime) No 2:32 PM SHAWNT Jennifer Santos RN documented as of this encounter Discharge Instructions * Discharge Instructions* Trudy Andujar DO - 01/15/2025 11:01 AM EDT Precautions: - You have received sedation/anesthesia today. You may not drive, drink alcohol, or do anything that requires a clear head for the next 24 hours. Medications: - You have been prescribed Macrobid taken once a day for each day up until your next appointment days. This is an antibiotic. Please take the entire course of the medication even if you begin to feelbetter. - You may take 500mg Tylenol every 6 hours for mild - moderate pain. You may take up to 1000mg every 6 hours but do not take more than 4000mg in a day. - You should take 500mg methocarbamol 4 times per day for muscle spasms. - You have been prescribed narcotic pain medications to be taken as needed for severe pain. - You should take the stool softener prescribed as long as you are taking narcotics. - You have been prescribed lidocaine patches. These applied on areas of pain for 12 hours, then left off for 12 hours. Do not cover incisions with the patches. - You have been prescribed Eliquis 2.5mg twice daily to be taken for 28 days from the day of surgery to prevent blood clots. You should stop this medicine on 02/13/25. - You should take your stool softner for 30 days. - You may resume your previous medications unless otherwise instructed. Nutrition: - You may resume your normal diet as tolerated, focusing on liquids to keep yourself hydrated. Activity: - Walking and climbing stairs is ok and encouraged. You should refrain from any strenuous activity/exercise until your follow up appointment. - No lifting anything >10lbs (approximately a gallon of milk) for the next 6 weeks. - You may not drive for 24 hours after surgery, or while taking narcotics Stent: - You must keep your stents in place. These will not be removed until your next appointment. Incision: - A special skin glue is used to close and cover your incision. Do not pick it off, it will fall ofon its own after approximately 2 weeks. - You should try to keep your incisions as clean and dry as possible - You may shower. Let the soapy water run over your incisions. Do not scrub at your incisions. After you shower, pat your incisions dry with a clean towel. - Do NOT soak your incisions, or take a tub bath for 2 weeks. Potential Issues: - It is normal to have some blood in the urine after the procedure. Drink plenty of water and it should clear up. Contact the office if you are passing large clots or unable to urinate. - It is normal to have some pain and soreness, especially around the incisions. - A small amount of clear drainage from the incision may be expected, call the office if the drainage becomes bloody, purulent (pus), or foul-smelling - Call the office if you start to have increased redness, drainage, swelling, or increased pain around your incision - Call the office if you have a fever greater than 101 F - Call the office if you have severe abdominal discomfort, nausea and vomiting, or feeling unwell Follow Up: - You will be contacted by the clinic for a follow up appointment on 01/27/25 with Dejuan Hendricks MD. No needs prior to follow up appointment. Questions or Concerns and Appointments (physicians work at both clinics so confirm your location ahead of your appointment) [facility] Urology Department Clinic [facility] [address] [facility], 2nd Floor, [facility], [address] [place] [address] Clinic After Hours [facility] Office Building Urology Clinic [address] [place] [address] Clinic After Hours [facility] Multidisciplinary Urology Clinic [address] [facility] 1st [place] [address] Clinic documented in this encounter Medications at Time of Discharge acetaminophen (Tylenol) 500 MG tablet Take 2 tablets by mouth every 6 hours. 20 tablet 01/15/2025 albuterol (Proventil) (2.5 MG/3ML) 0.083% nebulizer solutionIndicatio ns:Chronic obstructive pulmonary disease, unspecified COPD type (CMS/HCC) Take 3 mL by nebulization every 6 hours as needed for wheezing or shortness of breath (or cough). 120 mL 2 11/09/2024 albuterol 108 (90 Base) MCG/ACT inhaler Inhale 2 puffs every 4 to 6 hours as needed for shortness of breath or wheezing. apixaban (Eliquis) 2.5 MG tablet Take 1 tablet by mouth 2 times a day. 60 tablet 01/15/2025 5 apixaban (Eliquis) 2.5 MG tablet Take 1 tablet by mouth 2 times a day. 60 tablet 01/15/2025 ASPIRIN 81 MG chewable tablet Chew 1 tablet every morning. atorvastatin (Lipitor) 40 MG tablet Take 1 tablet by mouth every morning. 05/03/2023 Budeson-Glycopyrr ol-Formoterol (Breztri Aerosphere) 160-9-4.8 MCG/ACT aerosolIndication s:Chronic obstructive pulmonary disease, unspecified COPD type (CMS/HCC) Inhale 2 puffs 2 times a day. Use with spacer. Rinse mouth after each use. 10.7 g 11 11/09/2024 cholecalciferol (Vitamin D-3) 5,000 Units tablet Take 1 tablet by mouth daily. citalopram (CeleXA) 20 MG tablet Take 1 tablet by mouth every morning. 05/16/2023 lidocaine (Lidoderm) 5 % patch Apply 1 patch topically 1 (one) time each day at the same time over 12 hours. Remove & discard patch within 12 hours or as directed by . 20 patch 01/15/2025 methocarbamol (Robaxin) 750 MG tablet Take 1 tablet by mouth 4 times a day. 20 tablet 01/15/2025 naloxone (Narcan) 4 mg/0.1 mL nasal spray 1. Give 1 spray in nostril for no/slow breathing or cannot wake after opioid use 2. Call 911 3. Repeat in other nostril if symptoms continue 1 each 01/15/2025 nitrofurantoin, macrocrystal-mono hydrate, (Macrobid) 100 MG capsuleIndication s:Bladder mass Take 1 capsule by mouth daily. 30 capsule 01/15/2025 nutrional drink glucose control (Boost Glucose Control) liquid liquid Take 230 mL by mouth 3 times a day. [address]883 mL 01/15/2025 omeprazole (PriLOSEC) [address] capsule Take 1 capsule by mouth every morning. 04/29/2023 oxyCODONE (Roxicodone) 5 MG immediate release tablet Take 1 tablet by mouth every 6 hours as needed for severe pain. 8 tablet 01/15/2025 propranolol (Inderal) 10 MG tablet Take 1 tablet by mouth 2 times a day. rOPINIRole (Requip) 0.5 MG tablet Take 1 tablet by mouth 3 times a day. 02/29/2024 senna-docusate (Uzma-Colace) 8.6-50 MG tablet Take 1 tablet by mouth nightly. 30 tablet 01/15/2025 documented as of this encounter Miscellaneous Notes * Discharge Summary - Trudy Andujar DO - 01/15/2025 1:47 PM EDT Images from the original note were not included. Hospitalization Admit Date/Time: 01/11/2025 5:42 AM Admitting Attending: Dejuan Hendricks Discharge Date: 01/15/25 Discharge Attending Physician: Dejuan Hendricks MD PCP name and Address: Riley Hunter MD [address] [place] [address] / [place] [address] Referring provider name and address: No referring provider defined for this encounter. Chief Concern, Brief History of Present Illness, and Hospital Course Draft Hospital Course Grace Islas is a 69 y.o. male with PMH MIBC who presented to [facility] for surgical intervention. They were taken to the operating room on 01/12 for elective cystectomy with ileal conduit creation. The patient tolerated the procedure well and awakened from anesthesia, extubated and taken to the recovery room in a stable condition. The patient's hospital course was uncomplicated. It was felt that the patient had reached maximal benefit from hospitalization. They were deemedappropriate for discharge to Home with Home Health. On the day of discharge the patient's pain was controlled on oral medications, they were ambulating, and tolerating oral intake. The patient was discharged on 01/15/25 to Home with Home Health and will return to clinic for a follow up appointment on 01/27/25 with Dejuan Hnedricks MD. No needs prior to follow up appointment. Surgeries and Procedures CYSTECTOMY (N/A) Medication List .. acetaminophen 500 MG tablet Commonly known as: Tylenol Take 2 tablets by mouth every 6 hours. * apixaban 2.5 MG tablet Commonly known as: Eliquis Take 1 tablet by mouth 2 times a day. * apixaban 2.5 MG tablet Commonly known as: Eliquis Take 1 tablet by mouth 2 times a day. aspirin 81 MG chewable tablet Chew 1 tablet every morning. atorvastatin 40 MG tablet Commonly known as: Lipitor Take 1 tablet by mouth every morning. Breztri Aerosphere 160-9-4.8 MCG/ACT aerosol Generic drug: Okyjrzj-Nmyspvdiyvb-Bvbvrtvzhq Inhale 2 puffs 2 times a day. Use with spacer. Rinse mouth after each use. cholecalciferol 5,000 Units tablet Commonly known as: D3-5 Take 1 tablet by mouth daily. citalopram 20 MG tablet Commonly known as: CeleXA Take 1 tablet by mouth every morning. lidocaine 5 % patch Commonly known as: Lidoderm Apply 1 patch topically 1 (one) time each day at the same time over 12 hours. Remove & discard patch within 12 hours or as directed by MD. methocarbamol 750 MG tablet Commonly known as: Robaxin Take 1 tablet by mouth 4 times a day. naloxone 4 mg/0.1 mL nasal spray Commonly known as: Narcan 1. Give 1 spray in nostril for no/slow breathing or cannot wake after opioid use 2. Call 911 3. Repeat in other nostril if symptoms continue nitrofurantoin (macrocrystal-monohydrate) 100 MG capsule Commonly known as: Macrobid Take 1 capsule by mouth daily. nutrional drink glucose control liquid liquid Take 230 mL by mouth 3 times a day. omeprazole [address] capsule Commonly known as: PriLOSEC Take 1 capsule by mouth every morning. oxyCODONE 5 MG immediate release tablet Commonly known as: Roxicodone Take 1 tablet by mouth every 6 hours as needed for severe pain. propranolol 10 MG tablet Commonly known as: Inderal Take 1 tablet by mouth 2 times a day. rOPINIRole 0.5 MG tablet Commonly known as: Requip Take 1 tablet by mouth 3 times a day. senna-docusate 8.6-50 MG tablet Commonly known as: Uzma-Colace Take 1 tablet by mouth nightly. * This list has 2 medication(s) that are the same as other medications prescribed for you. Read thedirections carefully, and ask your doctor or other care provider to review them with you. . * albuterol 108 (90 Base) MCG/ACT inhaler Inhale 2 puffs every 4 to 6 hours as needed for shortness of breath or wheezing. * albuterol (2.5 MG/3ML) 0.083% nebulizer solution Commonly known as: Proventil Take 3 mL by nebulization every 6 hours as needed for wheezing or shortness of breath (or cough). * This list has 2 medication(s) that are the same as other medications prescribed for you. Read thedirections carefully, and ask your doctor or other care provider to review them with you. Where to Get Your Medications These medications were sent to [facility] [place], [place] - [address] [facility] [id number] acetaminophen 500 MG tablet apixaban 2.5 MG tablet apixaban 2.5 MG tablet lidocaine 5 % patch methocarbamol 750 MG tablet naloxone 4 mg/0.1 mL nasal spray nitrofurantoin (macrocrystal-monohydrate) 100 MG capsule nutrional drink glucose control liquid liquid oxyCODONE 5 MG immediate release tablet senna-docusate 8.6-50 MG tablet Discharge Diagnosis Medical Problems Active and Resolved Hospital Problems Hospital * (Principal) Bladder cancer ([facility]) Malignant neoplasm of urinary bladder, unspecified site Post Discharge Instructions Precautions: - You have received sedation/anesthesia today. You may not drive, drink alcohol, or do anything that requires a clear head for the next 24 hours. Medications: - You have been prescribed Macrobid taken once a day for each day up until your next appointment days. This is an antibiotic. Please take the entire course of the medication even if you begin to feelbetter. - You may take 500mg Tylenol every 6 hours for mild - moderate pain. You may take up to 1000mg every 6 hours but do not take more than 4000mg in a day. - You should take 500mg methocarbamol 4 times per day for muscle spasms. - You have been prescribed narcotic pain medications to be taken as needed for severe pain. - You should take the stool softener prescribed as long as you are taking narcotics. - You have been prescribed lidocaine patches. These applied on areas of pain for 12 hours, then left off for 12 hours. Do not cover incisions with the patches. - You have been prescribed Eliquis 2.5mg twice daily to be taken for 28 days from the day of surgery to prevent blood clots. You should stop this medicine on 02/13/25. - You should take your stool softner for 30 days. - You may resume your previous medications unless otherwise instructed. Nutrition: - You may resume your normal diet as tolerated, focusing on liquids to keep yourself hydrated. Activity: - Walking and climbing stairs is ok and encouraged. You should refrain from any strenuous activity/exercise until your follow up appointment. - No lifting anything >10lbs (approximately a gallon of milk) for the next 6 weeks. - You may not drive for 24 hours after surgery, or while taking narcotics Stent: - You must keep your stents in place. These will not be removed until your next appointment. Incision: - A special skin glue is used to close and cover your incision. Do not pick it off, it will fall ofon its own after approximately 2 weeks. - You should try to keep your incisions as clean and dry as possible - You may shower. Let the soapy water run over your incisions. Do not scrub at your incisions. After you shower, pat your incisions dry with a clean towel. - Do NOT soak your incisions, or take a tub bath for 2 weeks. Potential Issues: - It is normal to have some blood in the urine after the procedure. Drink plenty of water and it should clear up. Contact the office if you are passing large clots or unable to urinate. - It is normal to have some pain and soreness, especially around the incisions. - A small amount of clear drainage from the incision may be expected, call the office if the drainage becomes bloody, purulent (pus), or foul-smelling - Call the office if you start to have increased redness, drainage, swelling, or increased pain around your incision - Call the office if you have a fever greater than 101 F - Call the office if you have severe abdominal discomfort, nausea and vomiting, or feeling unwell Follow Up: - You will be contacted by the clinic for a follow up appointment on 01/27/25 with Dejuan Hendricks MD. No needs prior to follow up appointment. Questions or Concerns and Appointments (physicians work at both clinics so confirm your location ahead of your appointment) [facility] Urology Department Clinic at [facility] [address], [address] Floor, [address], [address] [place] [address] Clinic After Hours [facility] Office Building Urology Clinic 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 [facility] 01/27/2025 10:20 AM Dejuan Hendricks MD [facility] 02/08/2025 1:30 PM Felicita Lindquist APRN [facility] Test Results Pending At Discharge Pending Labs Order Current Status Prepare Leukocyte Reduced RBC: 2 Units Preliminary result Pertinent Physical Exam At Time of Discharge Physical Exam GEN: NAD HEENT: NCAT, EOMI RESP: Equal bilateral chest rise, normal work of breathing CV: Regular rate, appears well perfused ABD: Nondistended, incisions C/D/I : urostomy pink and patent, document preparation specialist stents in place draining clear yellow urine with mucus. EXT: No gross deformities MSK: Full ROM in BL UE NEURO: No focal deficits, alert and oriented PSYCH: Normal mood and affect Discharge Disposition/Condition Disposition: Home with Home Health Condition: Stable (s/sx potential problems absent or manageable) I spent < 30 minutes of patient care and instruction time in preparation for this discharge. Cosigned by Dejuan Hendricks MD at 01/15/2025 3:16 PM EDT * Progress Notes - Chen Loo RN - 01/15/2025 1:45 PM EDT Case Management Discharge Note Grace Islas 69 y.o. male CSN: [id number] Admission: 01/11/2025 5:42 AM Primary Problem: Bladder cancer (CMS/HCC) Primary Plaster Maker: Primary Caregiver: Self Assistance Available at Discharge: Family/Plaster Maker(s) Willingness Assessed to care for patient at home: Yes Family/Plaster Maker(s) Readiness Assessed to care for patient at home: Yes Housing Circumstances-Z Codes: Patient Referred to Financial or Community Resources: Discharge Facility/Level of Care Needs: Discharge Facility/Level of Care Needs: 1-Home or Self Care Patient's Choice of Community Agency(s): Patient/Family Anticipated Services at Transition: Patient/Family Anticipated Services at Transition: test case developer DME/Equipment Needed after Discharge: Equipment Currently Used at Home: oxygen, nebulizer Equipment Needed After Discharge: colostomy/ostomy supplies, oxygen, nebulizer Readmission Within the Last 30 Days: Readmission Within the Last 30 Days: no previous admission in last 30 days Medicare Documentation: Medicare Second Notice?: Yes Date Second Notice Completed: 01/15/25 Time Second Notice Completed: 1001 Medicare Second Notice Recieved By: patient Follow-up: [place] Phone: [phone] Follow up Company will call to order your first monthly ostomy supplies. [employer] Phone: Follow up Please call for any samples/educational materials. Discharge Transportation: Transportation Anticipated: family or friend will provide Transportation Home at Discharge: Family/Friend will Provide Has discharge transport been arranged?: Yes What day is the transport expected?: 01/15/25 Follow Up Transport: Transportation Needed to Follow up Appoinments: Family/Friend will Provide Additional Comments: No HH acceptance at this time. Ostomy supplies orders sent to [employer], pt to receive sample pack in the mail in 2-3business days. Ostomy supplies order and supporting documentation sent to Jaimie with [facility] via e-mail [email or web address] and fax [phone] or [phone]. Company will verify insurance and will call pt to place an order. POC reviewed with primary team. Refer to primary team's discharge note for details. Medically readyto discharge today. Patient agrees to dc home today and agrees with above DC plan. 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 [id number] Methocarbamol WHY is this medicine prescribed? Methocarbamol is used with rest, physical therapy, and other measures to relax muscles and relieve pain and discomfort caused by strains, sprains, and other muscle injuries. Methocarbamol is in a class of medications called muscle relaxants. It works by slowing activity in the nervous system to allow the body to relax HOW should this medicine be used? Methocarbamol comes as a tablet to take by mouth. It usually is taken four times a day at first, then it may be changed to three to six times a day. Follow the directions on your prescription label carefully, and ask your doctor or pharmacist to explain any part you do not understand. Take methocarbamol exactly as directed. Do not take more or less of it or take it more often than prescribed by your doctor. Are there OTHER USES for this medicine? This medication may be prescribed for other uses. Ask your doctor or pharmacist for more information. What SPECIAL PRECAUTIONS should I follow? Before taking methocarbamol, ? tell your doctor and pharmacist if you are allergic to methocarbamol, any other medications or any of the ingredients in methocarbamol tablets. Ask your doctor or pharmacist for a list of the ingredients. ? tell your doctor and pharmacist what prescription and nonprescription medications, vitamins, nutritional supplements, and herbal products you are taking or plan to take while taking methocarbamol. Your doctor may need to change the doses of your medications or monitor you carefully for side effects. ? tell your doctor if you are , plan to become , or are breast- feeding. If you become while taking methocarbamol, call your doctor. ? talk to your doctor about the risks and benefits of taking methocarbamol if you are 65 years of age or older. Older adults should not usually take methocarbamol because it is not as safe or as effective as other medications that can be used to treat the same condition. ? you should know that this medication may make you drowsy. Do not drive a car or operate machineryuntil you know how methocarbamol affects you. ? talk to your doctor about the safe use of alcohol during your treatment with this medication. Alcohol can make the side effects of methocarbamol worse. What SPECIAL DIETARY instructions should I follow? Unless your doctor tells you otherwise, continue your normal diet. What should I do IF I FORGET to take a dose? Take the missed dose as soon as you remember it. However, if it is almost time for the next dose, skip the missed dose and continue your regular dosing schedule. Do not take a double dose to make up for a missed one. What SIDE EFFECTS can this medicine cause? If you experience either of the following symptoms, call your doctor immediately: ? rash ? itching Methocarbamol may cause other side effects. Call your doctor if you have any unusual problems whileyou are taking this medication. If you experience a serious side effect, you or your doctor may send a report to the Food and Drug Administration's (FDA) MedWatch Adverse Event Reporting program online (https://www.fda.gov/Safety/MedWatch) or by phone ( ). What should I know about STORAGE and DISPOSAL of this medication? Keep this medication in the container it came in, tightly closed, and out of reach of children. Store it at room temperature and away from excess heat and moisture (not in the bathroom). Dispose of unneeded medications in a way so that pets, children, and other people cannot take them.Do not flush this medication down the toilet. Use a medicine take-back program. Talk to your pharmacist about take-back programs in your community. Visit the FDA's Safe Disposal of Medicines website h ttps://goo.gl/c4Rm4p for more information. Keep all medication out of sight and reach of children as many containers are not child-resistant. Always lock safety caps. Place the medication in a safe location - one that is up and away and out of their sight and reach. https://www.upandaway.org What should I do in case of OVERDOSE? In case of overdose, call the poison control helpline at . Information is also available online at https://www.poisonhelp.org/help. If the victim has collapsed, had a seizure, has trouble breathing, or can't be awakened, immediately call emergency services at [phone]. What OTHER INFORMATION should I know? Keep all appointments with your doctor. Do not let anyone else take your medication. Ask your pharmacist any questions you have about refilling your prescription. Keep a written list of all of the prescription and nonprescription (jkmx-dos-umdlmks) medicines, vitamins, minerals, and dietary supplements you are taking. Bring this list with you each time you visit a doctor or if you are admitted to the hospital. You should carry the list with you in case of francisco rgencies. Brand Name(s): ? Robaxin?? also available generically This report on medications is for your information only, and is not considered individual patient advice. Because of the changing nature of drug information, please consult your physician or pharmacist about specific clinical use. The [place] [employer] represents that the information provided hereunder was formulated with a reasonable standard of care, and in conformity with professional standards in the field. The [place] [employer] makes no representations or warranties, express or implied, including, but not limited to, any implied warranty of merchantability and/or fitness for a particular purpose, with respect to such information and specifically disclaims all such warranties. Users are advised that decisions regarding drug therapy are complex medical decisions requiring the independent, informed decision of an appropriate health toddler caregiver, and the information is provided for informational purposes only. The entire monograph for a drug should be reviewed for a thorough understanding of the drug's actions, uses and side effects. The [place] [employer] does not endorse or recommend the use of any drug.The information is not a substitute for medical care. AHFS?? Patient Medication Information?. ?? Copyright, 2023. The [place] [employer]??, [address], [address], [place], [place]. All Rights Reserved. Duplication for commercial use must be authorized by [facility]. Selected Revisions: October 30, 2016. AHFS?? Patient Medication Information?. ?? Copyright, 2024 * Davey Smyth - Kilo Dueñas RN - 01/15/2025 1:39 PM EDT Images from the original note were not included. [id number] Senna WHY is this medicine prescribed? Senna is used on a short-term basis to treat constipation. It also is used to empty the bowels before surgery and certain medical procedures. Senna is in a class of medications called stimulant laxatives. It works by increasing activity of the intestines to cause a bowel movement. HOW should this medicine be used? Senna comes as a liquid, powder, granules, chewable pieces, and tablets to take by mouth. It is maybe taken once or twice daily. Senna normally causes a bowel movement within 6 to 12 hours, so it may be taken at bedtime to produce a bowel movement the next day. Do not take senna for more than 1 week without talking to your doctor. Follow the directions on your package or prescription label karen cohen, and ask your doctor or pharmacist to explain any part you do not understand. Take senna exactly as directed. Frequent or continued use of senna may make you dependent on laxatives and cause yourbowels to lose their normal activity. If you do not have a regular bowel movement after taking senna, do not take any more medication and talk to your doctor. If you are taking certain senna products (Ex-Lax?? regular ormaximum strength tablets or Perdiem Overnight Relief), swallow the pills whole with a glass of water; do not split, chew, or crush them. Are there OTHER USES for this medicine? This medication may be prescribed for other uses; ask your doctor or pharmacist for more information. What SPECIAL PRECAUTIONS should I follow? Before taking senna, ? tell your doctor and pharmacist if you are allergic to senna, any other medications, or any of the ingredients in these senna products. Ask your pharmacist for a list of the ingredients. ? tell your doctor and pharmacist what prescription and nonprescription medications, vitamins, nutritional supplements, and herbal products you are taking or plan to take while taking senna. Your doctor may need to change the doses of your medications or monitor you carefully for side effects.. ? take certain senna products (Ex-Lax??, Perdiem Overnight Relief) at least 2 or more hours before or after taking other medications by mouth; some senna products may affect how other medications work. ? the following nonprescription product may interact with senna: mineral oil. Be sure to let your doctor and pharmacist know that you are taking this medication before you start taking senna. Do not start this medication while taking senna without discussing with your healthcare provider. ? tell your doctor if you have stomach pain, nausea, vomiting, or a sudden change in bowel movements lasting more than 2 weeks. ? tell your doctor if you are , plan to become , or are breast- feeding. If you become while taking senna, call your doctor. ? talk to your doctor about the risks and benefits of taking senna if you are 65 years of age or older. Older adults should not usually take senna products over a long period of time because they arenot as safe as other medications that can be used to treat the same condition. What SPECIAL DIETARY instructions should I follow? A regular diet and exercise program is important for regular bowel function. Eat a high-fiber diet and drink plenty of liquids (eight glasses) each day as recommended by your doctor. What should I do IF I FORGET to take a dose? This medication usually is taken as needed. If your doctor has told you to take senna regularly, take the missed dose as soon as you remember it. However, if it is almost time for the next dose, skipthe missed dose and continue your regular dosing schedule. Do not take a double dose to make up fora missed one. What SIDE EFFECTS can this medicine cause? Some side effects can be serious. If you experience this symptom, stop taking senna and call your doctor immediately: ? rectal bleeding Senna may cause other side effects. Call your doctor if you have any unusual problems while taking this medication. If you experience a serious side effect, you or your doctor may send a report to the Food and Drug Administration's (FDA) ipsy Adverse Event Reporting program online (https://www.fda.gov/Safety/MedWatch) or by phone ( ). What should I know about STORAGE and DISPOSAL of this medication? Keep this medication in the container it came in, tightly closed, and out of reach of children. Store it at room temperature and away from excess heat and moisture (not in the bathroom). Keep all medication out of sight and reach of children as many containers are not child-resistant. Always lock safety caps. Place the medication in a safe location - one that is up and away and out of their sight and reach. https://www.[employer].org Dispose of unneeded medications in a way so that pets, children, and other people cannot take them.Do not flush this medication down the toilet. Use a medicine take-back program. Talk to your pharmacist about take-back programs in your community. Visit the FDA's Safe Disposal of Medicines website h ttps://goo.gl/c4Rm4p for more information. What should I do in case of OVERDOSE? In case of overdose, call the poison control helpline at . Information is also available online at https://www.poisonhelp.org/help. If the victim has collapsed, had a seizure, has trouble breathing, or can't be awakened, immediately call emergency services at 911. What OTHER INFORMATION should I know? Ask your pharmacist any questions you have about senna. Keep a written list of all of the prescription and nonprescription (ubae-qvg-tdyjzfo) medicines, vitamins, minerals, and dietary supplements you are taking. Bring this list with you each time you visit a doctor or if you are admitted to the hospital. You should carry the list with you in case of francisco rgencies. Brand Name(s): ? Black Draught?? ? Ex-Lax?? ? Simeon's Castoria?? ? Nature's Remedy?? ? Perdiem Overnight Relief?? ? Senexon?? ? Senna X-Prep?? ? Senokot?? ? Correctol 50 Plus?? (as a combination product containing Docusate, Sennosides) ? Ex-Lax Gentle Strength?? (as a combination product containing Docusate, Sennosides) ? Gentlax S?? (as a combination product containing Docusate, Sennosides) ? Uzma-Colace?? (as a combination product containing Docusate, Sennosides) ? Senokot S?? (as a combination product containing Docusate, Sennosides) also available generically sennosides This report on medications is for your information only, and is not considered individual patient advice. Because of the changing nature of drug information, please consult your physician or pharmacist about specific clinical use. The [place] [employer] represents that the information provided hereunder was formulated with a reasonable standard of care, and in conformity with professional standards in the field. The [place] [employer] makes no representations or warranties, express or implied, including, but not limited to, any implied warranty of merchantability and/or fitness for a particular purpose, with respect to such information and specifically disclaims all such warranties. Users are advised that decisions regarding drug therapy are complex medical decisions requiring the independent, informed decision of an appropriate health toddler caregiver, and the information is provided for informational purposes only. The entire monograph for a drug should be reviewed for a thorough understanding of the drug's actions, uses and side effects. The [place] [employer] does not endorse or recommend the use of any drug.The information is not a substitute for medical care. AHFS?? Patient Medication Information?. ?? Copyright, 2023. The [place] [employer]??, [address], [address], [place], [place]. All Rights Reserved. Duplication for commercial use must be authorized by [facility]. Selected Revisions: September 05, 2023. AHFS?? Patient Medication Information?. ?? Copyright, 2024 * Davey Smyth - Kilo Dueñas RN - 01/15/2025 1:38 PM EDT Images from the original note were not included. [id number] Oxycodone IMPORTANT WARNING: Oxycodone may be habit-forming. Do not take more or less of it, take it more often, stop taking it suddenly, or take it in a different way than directed by your doctor. Tell your doctor if you or anyone in your family drinks or has ever drunk large amounts of alcohol, uses or has ever used street drugs, or has overused prescription medications, or has had an overdose, or if you have or have ever had depression or another mental illness. Oxycodone may cause serious or life-threatening breathing problems, especially during the first 24 to 72 hours of your treatment and any time your dose is increased. If you experience any of the following symptoms, call your doctor immediately or get emergency medical treatment: slowed breathing, long pauses between breaths, or shortness of breath. Oxycodone may harm or cause to other people who take your medication, especially children. Keep oxycodone in a safe place so that no one else can take it accidentally or on purpose. Taking certain other medications, drinking alcohol, or using street drugs with oxycodone may increase the risk of serious or life-threatening breathing problems, sedation, or coma. Tell your doctor and pharmacist what other prescription and nonprescription medications, vitamins, nutritional supplements, and herbal products you are taking or plan to take. Your doctor may need to change the doses of your medication and will monitor you carefully. If you are taking the oxycodone extended-release tablets, swallow them whole; do not chew, break, divide, crush, or dissolve them.as you may receive too much oxycodone at once instead of slowly over 12 hours. This may cause serious problems, including overdose and . Be sure that you know the dose in milliliters that your doctor has prescribed. Use the dosing cup, oral syringe, or dropper provided with your medication to carefully measure the number of milliliters of solution that your doctor prescribed. Ask your doctor or pharmacist if you have any questions about how to measure your dose or how much medication you should take. You may experience serious or life-threatening side effects if you take a different amount of medication than prescribed by your doctor. Tell your doctor if you are or plan to become . If you take oxycodone regularly during your , your baby may experience life- threatening withdrawal symptoms after . Your doctor or pharmacist will give you the Medication Guide with your prescription. Read the information carefully and ask your doctor or pharmacist if you have any questions. You can also visit the (https://www.fda.gov/Drugs/DrugSafety/dxg176544.htm) or the license and permit specialist's website to obtain the Medication Guide. Talk to your doctor about the risks of taking oxycodone. WHY is this medicine prescribed? Oxycodone is used to relieve severe pain. Oxycodone is in a class of medications called opiate (narcotic) analgesics. It works by changing the way the brain and nervous system respond to pain. HOW should this medicine be used? Oxycodone comes as a solution (liquid), a tablet, a capsule, an extended-release (long-acting) tablet, and an extended-release capsule to take by mouth. The solution, tablet, and capsule are taken with or without food every 4 to 6 hours as needed for pain. The extended-release tablets and capsules are prescribed when pain relief is needed around the clock and are taken every 12 hours. The capsules should be taken with food but the tablets can be taken with or without food. If you are taking the extended-release tablets, swallow the tablets one at a time with plenty of water. Swallow the tablet right after putting it in your mouth. Do not presoak, wet, or lick the tablets before you put them in your mouth. Do not chew or crush extended-release tablets. If you have trouble swallowing extended-release capsules, carefully open the capsule and sprinkle the contents on soft foods such as applesauce, pudding, yogurt, ice cream, or jam. Consume the mixture immediately. Dispose of the empty capsule shells right away by flushing them down a toilet. Do notstore the mixture for future use. If you have a feeding tube, the extended-release capsule contents can be poured into the tube. Ask your doctor how you should take the medication and follow these directions carefully. Your doctor may adjust your dose of oxycodone during your treatment, depending on how well your pain is controlled and on the side effects that you experience. Tell your doctor if you feel that your pain is not controlled or if your pain increases, becomes worse, or if you have new pain or an increased sensitivity to pain during your treatment with oxycodone. Do not take more of it or take it more often than prescribed by your doctor. Talk to your doctor or pharmacist about access to rescue medicines, naloxone or nalmefene, while taking oxycodone. Rescue medications can reverse the life- threatening effects of an opioid overdose and are available over the counter or with a prescription. Make sure that you and your family members and people usually around you know how to recognize an overdose, how to use naloxone or nalmefene, and what to do until emergency medical help arrives. Your doctor or pharmacist will show you and others how to use it. If symptoms of an overdose occur, they should give the first dose of naloxone, call 911 immediately, and stay with you and watch you closely until emergency medical help arrives. If y our symptoms return, the person should give you another dose of the rescue medication. Additional doses may be given every 2 to 3 minutes, if symptoms return before medical help arrives. If you have been taking oxycodone regularly, do not stop taking oxycodone or rapidly decrease the dose without talking to your doctor. If you stop taking oxycodone suddenly, you may experience withdrawal symptoms such as restlessness, watery eyes, runny nose, sneezing, yawning, sweating, chills, muscle or joint aches or pains, weakness, irritability, anxiety, depression, difficulty falling asleepor staying asleep, cramps, nausea, vomiting, diarrhea, loss of appetite, fast heartbeat, and fast breathing. Your doctor will probably decrease your dose gradually. Are there OTHER USES for this medicine? This medication may be prescribed for other uses; ask your doctor or pharmacist for more information. What SPECIAL PRECAUTIONS should I follow? Before taking oxycodone, ? tell your doctor or pharmacist if you are allergic to this drug, any part of this drug, or any other drugs, foods or substances. Tell your doctor or pharmacist about the allergy and what symptoms you had. ? some medications should not be taken with oxycodone. Make sure you have discussed any medicationsyou are currently taking or plan to take before starting oxycodone with your doctor and pharmacist.Before starting, stopping, or changing any medications while taking oxycodone, please get the advice of your doctor or pharmacist. ? tell your doctor or pharmacist if you are taking the following medications or have stopped takingthem within the past two weeks: isocarboxazid, linezolid, methylene blue, phenelzine, selegiline, or tranylcypromine. ? the following nonprescription or herbal products may interact with oxycodone: Simms's wort andtryptophan. Be sure to let your doctor and pharmacist know that you are taking these medications before you start taking oxycodone. Do not start these medications while taking oxycodone without discussing it with your healthcare provider. ? tell your doctor if you have or have ever had slowed breathing, asthma, chronic pulmonary disease(COPD), or other lung problems, a blockage or narrowing of your stomach or intestines. Your doctor will probably tell you not to take oxycodone. ? tell your doctor if you have or have ever had a head injury, a brain tumor, or any condition thatincreases pressure in the brain; seizures; difficulty urinating; or heart, kidney, liver, pancreas,thyroid, or gall bladder disease. If you will be taking the extended-release products, also tell your doctor if you have or have ever had difficulty swallowing, diverticulitis (condition in which small pouches form in the intestines and become swollen and infected), colon cancer (cancer that beginsin the large intestine), or esophageal cancer (cancer that begins in the tube that connects the mouth and stomach). ? tell your doctor if you are , plan to become , or are . If you become while taking oxycodone call your doctor immediately. ? you should know that this medication may decrease fertility in men and women. Talk to your doctorabout the risks of taking oxycodone. ? you should know that this medication may make you drowsy. Do not drive a car, operate heavy machinery, or participate in any other possibly dangerous activities until you know how this medication affects you. ? you should know to not drink alcoholic beverages while you are taking oxycodone products. Alcoholcan make the side effects from oxycodone worse. ? you should know that oxycodone may cause dizziness, lightheadedness, and fainting when you get uptoo quickly from a lying position. To help avoid this problem, get out of bed slowly, resting your feet on the floor for a few minutes before standing up. ? you should know that oxycodone may cause constipation. Talk to your doctor about changing your diet or using other medications to prevent or treat constipation while you are taking oxycodone. What SPECIAL DIETARY instructions should I follow? Unless your doctor tells you otherwise, continue your normal diet. What should I do IF I FORGET to take a dose? If you are taking oxycodone on a regular schedule, take the missed dose as soon as you remember it.However, if it is almost time for the next dose, skip the missed dose and continue your regular dosing schedule. Do not take a double dose to make up for a missed one. Do not take more than one dose of the extended- release tablets or capsules in 12 hours. What SIDE EFFECTS can this medicine cause? Some side effects can be serious. If you experience any of these symptoms or those mentioned in theIMPORTANT WARNING section, call your doctor immediately or get emergency medical help: ? chest pain, changes in heartbeat ? agitation, hallucinations (seeing things or hearing voices that do not exist), fever, sweating, confusion, fast heartbeat, shivering, severe muscle stiffness or twitching, loss of coordination, or diarrhea ? nausea, vomiting, loss of appetite, weakness, or dizziness ? new pain or pain from touch or doing ordinary tasks such as combing your hair ? rash; itching; hives; hoarseness; difficulty breathing or swallowing; or swelling of the face, mouth, tongue, lips, or throat ? difficulty swallowing, regurgitation (bringing up swallowed food into throat and mouth), pain in the chest area ? seizures ? extreme drowsiness ? unusual snoring or long pauses during breaths during sleep If you experience a serious side effect, you or your doctor may send a report to the Food and Drug Administration's (FDA) MedWatch Adverse Event Reporting program online (https://www.fda.gov/Safety/MedWatch) or by phone ( ). Oxycodone may cause other side effects. Call your doctor if you have any unusual problems while youare taking this medication. What should I know about STORAGE and DISPOSAL of this medication? Keep this medication in the container it came in, tightly closed, and out of reach of children, andin a location that is not easily accessible by others, including visitors to the home. Store it at room temperature and away from light and excess heat and moisture (not in the bathroom). Store oxycodone products in a safe place so that no one else can take it accidentally or on purpose. Keep track of how many tablets or solution is left so you will know if any are missing. Dispose of any oxycodone medication that is outdated or no longer needed through a medicine take-back program. If you do not have a take-back program nearby or one that you can access promptly, flushany oxycodone medication down the toilet so that others will not take it. Talk to your pharmacist about the proper disposal of your medication. Keep all medication out of sight and reach of children as many containers are not child-resistant. Always lock safety caps. Place the medication in a safe location - one that is up and away and out of their sight and reach. https://www.[employer].org What should I do in case of OVERDOSE? In case of overdose, call the poison control helpline at . Information is also available online at https://www.poisonhelp.org/help. If the victim has collapsed, had a seizure, has trouble breathing, or can't be awakened, immediately call emergency services at 911. Symptoms of overdose may include the following: ? difficulty breathing, slow or shallow breathing, unusual snoring ? excessive sleepiness, unable to respond or wake up ? limp or weak muscles ? narrowing or widening of the pupils (dark nome in the eye) ? cold, clammy skin ? slowed heartbeat What OTHER INFORMATION should I know? Keep all appointments with your doctor. Before having any laboratory test, tell your doctor and the laboratory personnel that you are taking oxycodone. This prescription is not refillable. If you continue to have pain after you finish the oxycodone, call your doctor. Keep a written list of all of the prescription and nonprescription (pull-jcj-euoiira) medicines, vitamins, minerals, and dietary supplements you are taking. Bring this list with you each time you visit a doctor or if you are admitted to the hospital. You should carry the list with you in case of francisco rgencies. Brand Name(s): ? Oxaydo? Oxycontin?? ? Roxicodone?? ? Roxybond?? ? Xtampza?? ER also available generically ?? This branded product is no longer on the market. Generic alternatives may be available. This report on medications is for your information only, and is not considered individual patient advice. Because of the changing nature of drug information, please consult your physician or pharmacist about specific clinical use. The [place] [employer] represents that the information provided hereunder was formulated with a reasonable standard of care, and in conformity with professional standards in the field. The [place] [employer] makes no representations or warranties, express or implied, including, but not limited to, any implied warranty of merchantability and/or fitness for a particular purpose, with respect to such information and specifically disclaims all such warranties. Users are advised that decisions regarding drug therapy are complex medical decisions requiring the independent, informed decision of an appropriate health toddler caregiver, and the information is provided for informational purposes only. The entire monograph for a drug should be reviewed for a thorough understanding of the drug's actions, uses and side effects. The [place] [employer] does not endorse or recommend the use of any drug.The information is not a substitute for medical care. AHFS?? Patient Medication Information?. ?? Copyright, 2023. The [place] [employer]??, [address], [address], [place], [place]. All Rights Reserved. Duplication for commercial use must be authorized by [facility]. Selected Revisions: November 30, 2024. AHFS?? Patient Medication Information?. ?? Copyright, 2024 * [facility] - Kilo Dueñas RN - 01/15/2025 1:38 PM EDT Images from the original note were not included. [id number] Nitrofurantoin WHY is this medicine prescribed? Nitrofurantoin is used to treat urinary tract infections. Nitrofurantoin is in a class of medications called antibiotics. It works by killing bacteria that cause infection. Antibiotics such as nitrofurantoin will not work for colds, flu, or other viral infections. Using antibiotics when they are not needed increases your risk of getting an infection later that resists antibiotic treatment. HOW should this medicine be used? Nitrofurantoin comes as a capsule and a suspension (liquid) to take by mouth. Nitrofurantoin usually is taken with food two or four times a day for at least 7 days. Try to take nitrofurantoin at the same times every day. Follow the directions on your prescription label carefully, and ask your doctor or pharmacist to explain any part you do not understand. Take nitrofurantoin exactly as directed. Do not take more or less of it or take it more often than prescribed by your doctor. Shake the liquid well before each use to mix the medication evenly. Use a dose- measuring spoon or cup to measure the correct amount of liquid for each dose; not a household spoon. You should begin to feel better during your first few days of treatment with nitrofurantoin. If your symptoms do not improve or if they get worse, call your doctor. Take nitrofurantoin until you finish the prescription, even if you feel better. If you stop taking nitrofurantoin too soon or if you skip doses, your infection may be more difficult to treat and the bacteria may become resistant to antibiotics. Are there OTHER USES for this medicine? This medication may be prescribed for other uses. Ask your doctor or pharmacist for more information. What SPECIAL PRECAUTIONS should I follow? Before taking nitrofurantoin, ? tell your doctor and pharmacist if you are allergic to nitrofurantoin, any other medications, or any of the ingredients in nitrofurantoin capsules or suspension (liquid). Ask your doctor or pharmacist for a list of the ingredients. ? tell your doctor and pharmacist what prescription and nonprescription medications, vitamins, nutritional supplements and herbal products you are taking or plan to take while taking nitrofurantoin. Your doctor may need to change the doses of your medications or monitor you carefully for side effects. ? the following nonprescription products may interact with nitrofurantoin: antacids. Be sure to letyour doctor and pharmacist know that you are taking these medications before you start taking nitrofurantoin. Do not start any of these medications while taking nitrofurantoin without discussing withyour healthcare provider. ? tell your doctor if you have ever had kidney disease or if you have ever had jaundice (yellowing of the skin or eyes) or other liver problems while taking nitrofurantoin. Your doctor will probably tell you not to take nitrofurantoin. ? tell your doctor if you have or have ever had anemia, diabetes, lung problems, nerve damage, an electrolyte imbalance in your blood, low levels of vitamin B in your body, or gnrrwim-6-ujictcfqo dehydrogenase (G-6-PD) deficiency (an inherited blood disease). ? tell your doctor if you are , plan to become , or are breast- feeding. If you become while taking nitrofurantoin, call your doctor. Nitrofurantoin may cause problems in newborns following delivery if it is taken during the last month of . Nitrofurantoin should notbe taken by women in the last month of . What SPECIAL DIETARY instructions should I follow? Unless your doctor tells you otherwise, continue your normal diet. What should I do IF I FORGET to take a dose? Take the missed dose as soon as you remember it. However, if it is almost time for the next dose, skip the missed dose and take any remaining doses for that day at evenly spaced intervals. Do not take a double dose to make up for a missed one. What SIDE EFFECTS can this medicine cause? Some side effects can be serious. If you experience any of the following symptoms, call your doctorimmediately or get emergency medical treatment: ? rash ? hives ? difficulty breathing or swallowing ? swelling of the eyes, face, mouth, lips, tongue, or throat ? fever or chills ? chest pain ? persistent cough ? numbness, tingling, or pinprick sensation in the fingers and toes ? muscle weakness ? yellowing of the skin or eyes, dark urine, loss of appetite, fatigue, or pain or discomfort in right upper stomach area ? confusion ? dizziness ? paleness ? severe diarrhea (watery or bloody stools) that may occur with or without fever and stomach cramps(may occur up to 2 months or more after your treatment) ? eye pain or vision changes Nitrofurantoin may cause other side effects. Call your doctor if you have any unusual problems while you are taking this medication. If you experience a serious side effect, you or your doctor may send a report to the Food and Drug Administration's (FDA) MedWatch Adverse Event Reporting program online (https://www.fda.gov/Safety/MedWatch) or by phone ( ). What should I know about STORAGE and DISPOSAL of this medication? Keep this medication in the container it came in, tightly closed, and out of reach of children. Store it at room temperature and away from excess heat and moisture (not in the bathroom). Dispose of unneeded medications in a way so that pets, children, and other people cannot take them.Do not flush this medication down the toilet. Use a medicine take-back program. Talk to your pharmacist about take-back programs in your community. Visit the FDA's Safe Disposal of Medicines website h ttps://goo.gl/c4Rm4p for more information. Keep all medication out of sight and reach of children as many containers are not child-resistant. Always lock safety caps. Place the medication in a safe location - one that is up and away and out of their sight and reach. https://www.[employer].org What should I do in case of OVERDOSE? In case of overdose, call the poison control helpline at . Information is also available online at https://www.poisonhelp.org/help. If the victim has collapsed, had a seizure, has trouble breathing, or can't be awakened, immediately call emergency services at 011. What OTHER INFORMATION should I know? Keep all appointments with your doctor and the laboratory. Your doctor will order certain lab teststo check your response to nitrofurantoin. If you have diabetes and your doctor has told you to test your urine for glucose (sugar), tell the doctor that you are taking nitrofurantoin. Nitrofurantoin can cause false results on urine tests forglucose. Do not let anyone else take your medication. Your prescription is probably not refillable. If you still have symptoms of infection after you finish the nitrofurantoin, call your doctor. Keep a written list of all of the prescription and nonprescription (mupo-hbx-qkayrqq) medicines, vitamins, minerals, and dietary supplements you are taking. Bring this list with you each time you visit a doctor or if you are admitted to the hospital. You should carry the list with you in case of francisco rgencies. Brand Name(s): ? Furadantin?? Tablets?? ? Furadantin?? Oral Suspension ? Furalan? Macrobid?? ? Macrodantin?? also available generically ?? This branded product is no longer on the market. Generic alternatives may be available. This report on medications is for your information only, and is not considered individual patient advice. Because of the changing nature of drug information, please consult your physician or pharmacist about specific clinical use. The [place] [employer] represents that the information provided hereunder was formulated with a reasonable standard of care, and in conformity with professional standards in the field. The [place] [employer] makes no representations or warranties, express or implied, including, but not limited to, any implied warranty of merchantability and/or fitness for a particular purpose, with respect to such information and specifically disclaims all such warranties. Users are advised that decisions regarding drug therapy are complex medical decisions requiring the independent, informed decision of an appropriate health toddler caregiver, and the information is provided for informational purposes only. The entire monograph for a drug should be reviewed for a thorough understanding of the drug's actions, uses and side effects. The [place] [employer] does not endorse or recommend the use of any drug.The information is not a substitute for medical care. AHFS?? Patient Medication Information?. ?? Copyright, 2023. The [place] [employer]??, [address], [address], [place], [place]. All Rights Reserved. Duplication for commercial use must be authorized by [facility]. Selected Revisions: April 01, 2021. AHFS?? Patient Medication Information?. ?? Copyright, 2024 * Emir Naylor PharmD - 01/15/2025 12:12 PM EDT Images from the original note were not included. [id number] Apixaban IMPORTANT WARNING: If you have atrial fibrillation (a condition in which the heart beats irregularly, increasing the chance of clots forming in the body, and possibly causing strokes) and are taking apixaban to help prevent strokes or serious blood clots, you are at a higher risk of having a stroke after you stop taking this medication. Do not stop taking apixaban without talking to your doctor. Continue to take apixaban even if you feel well. Be sure to refill your prescription before you run out of medication so that you will not miss any doses of apixaban. If you need to stop taking apixaban, your doctor mayprescribe another anticoagulant ('blood thinner') to help prevent a blood clot from forming and causing you to have a stroke. If you have epidural or spinal anesthesia or a spinal puncture while taking a 'blood thinner' such as apixaban, you are at risk of having a blood clot form in or around your spine that could cause you to become paralyzed. Tell your doctor if you have an epidural catheter that is left in your body or have or have ever had repeated epidural or spinal punctures, spinal deformity, or spinal surgery. Tell your doctor and pharmacist if you are taking any of the following: anagrelide (Agrylin??); aspirin and other nonsteroidal anti-inflammatory drugs (NSAIDs) such as ibuprofen (Advil??, Motrin??, others), indomethacin (Indocin??, Tivorbex??), ketoprofen, and naproxen (Aleve??, Anaprox??, others); cilostazol (Pletal??); clopidogrel (Plavix??); dipyridamole (Persantine??); eptifibatide (Integrilin??); heparin; prasugrel (Effient??); ticagrelor (Brilinta??); ticlopidine; tirofiban (Aggrastat??), and warfarin (Coumadin??, Jantoven??). If you experience any of the following symptoms, call your doctor immediately: muscle weakness (especially in your legs and feet), numbness or tingling (especially in your legs), or loss of control of your bowels or bladder. Your doctor or pharmacist will give you the license and permit specialist's patient information sheet (Medication Guide) when you begin treatment with apixaban and each time you refill your prescription. Read the information carefully and ask your doctor or pharmacist if you have any questions. You can also visit the Food and Drug Administration (FDA) website (https://www.fda.gov/Drugs/DrugSafety/suu981869.htm) or the license and permit specialist's website to obtain the Medication Guide. Talk to your doctor about the risks of taking apixaban. WHY is this medicine prescribed? Apixaban is used to help prevent strokes or blood clots in people who have atrial fibrillation (a condition in which the heart beats irregularly, increasing the chance of clots forming in the body and possibly causing strokes) that is not caused by heart valve disease. Apixaban is also used to prevent deep vein thrombosis (DVT; a blood clot, usually in the leg) and pulmonary embolism (PE; a bloodclot in the lung) in people who are having hip replacement or knee replacement surgery. Apixaban isalso used to treat DVT and PE and may be continued to prevent DVT and PE from happening again afterthe initial treatment is completed. Apixaban is in a class of medications called factor Xa inhibitor s. It works by blocking the action of a certain natural substance that helps blood clots to form. HOW should this medicine be used? Apixaban comes as a tablet to take by mouth. It is usually taken with or without food twice a day. When apixaban is taken to prevent DVT and PE after hip or knee replacement surgery, the first dose should be taken at least 12 to 24 hours after surgery. Apixaban is usually taken for 35 days after a hip replacement surgery and for 12 days after knee replacement surgery. Take apixaban at around the same times every day. Follow the directions on your prescription label carefully, and ask your doctor or pharmacist to explain any part you do not understand. Take apixaban exactly as directed. Do nottake more or less of it or take it more often than prescribed by your doctor. If you are unable to swallow the tablets, you can crush them and mix with water, apple juice, or applesauce. Swallow the mixture right after you prepare it. Apixaban can also be given in certain types of feeding tubes. Ask your doctor if you should take this medication in your feeding tube. Follow your doctor's directions carefully. Continue to take apixaban even if you feel well. Do not stop taking apixaban without talking to your doctor. If you stop taking apixaban, your risk of a blood clot may increase. Are there OTHER USES for this medicine? This medication may be prescribed for other uses; ask your doctor or pharmacist for more information. What SPECIAL PRECAUTIONS should I follow? Before taking apixaban, ? tell your doctor and pharmacist if you are allergic to apixaban, any other medications, or any ofthe ingredients in apixaban tablets. Ask your pharmacist or check the Medication Guide for a list of the ingredients. ? Tell your doctor and pharmacist what prescription and nonprescription medications, vitamins, nutritional supplements, and herbal products you are taking or plan to take while taking apixaban. Your doctor may need to change the doses of your medications or monitor you carefully for side effects. ? The following nonprescription or herbal products may interact with apixaban: Benny's wort; aspirin; NSAIDs (such as ibuprofen [Advil??, Motrin??] and naproxen [Aleve??, Naprosyn??]). Be sure to let your doctor and pharmacist know that you are taking these medications before you start taking apixaban. Do not start any of these medications while taking apixaban without discussing with your healthcare provider. ? you should know that apixaban may interact with certain medications that may be used to treat youif you have a stroke or other medical emergency. In case of an emergency, you or a family member should tell the doctor or emergency room staff who treat you that you are taking apixaban. ? tell your doctor if you have an artificial heart valve or if you have heavy bleeding anywhere in your body that cannot be stopped. Your doctor will probably tell you not to take apixaban. ? tell your doctor if you have or have ever had any type of bleeding problem, antiphospholipid syndrome (APS; a condition that causes blood clots), or kidney or liver disease. ? tell your doctor if you are , plan to become , or are . If you become while taking apixaban, call your doctor. ? if you are having surgery, including dental surgery, tell the doctor or dentist that you are taking apixaban. Your doctor may tell you to stop taking apixaban before the surgery or procedure. If you need to stop taking apixaban because you are having surgery, your doctor may prescribe a differentmedication to prevent blood clots during this time. Your doctor will tell you when you should starttaking apixaban again after your surgery. Follow these directions carefully. ? Call your doctor right away if you fall or injure yourself, especially if you hit your head. Yourdoctor may need to check you. What SPECIAL DIETARY instructions should I follow? Unless your doctor tells you otherwise, continue your normal diet. What should I do IF I FORGET to take a dose? Take the missed dose as soon as you remember it. However, if it is almost time for the next dose, skip the missed dose and continue your regular dosing schedule. Do not take a double dose to make up for a missed one. What SIDE EFFECTS can this medicine cause? Some side effects can be serious. If you experience any of these symptoms, call your doctor immediately or get emergency medical treatment: ? bleeding gums ? nosebleeds ? heavy vaginal bleeding ? red, pink, or brown urine ? red or black, tarry stools ? coughing up or vomiting blood or material that looks like coffee grounds ? swelling or joint pain ? headache ? rash ? chest pain or tightness ? swelling of the face or tongue ? trouble breathing ? wheezing ? feeling dizzy or faint Apixaban prevents blood from clotting normally, so it may take longer than usual for you to stop bleeding if you are cut or injured. This medication may also cause you to bruise or bleed more easily.Call your doctor right away if bleeding or bruising is unusual, severe, or cannot be controlled. Apixaban may cause other side effects. Call your doctor if you have any unusual problems while taking this medication. If you experience a serious side effect, you or your doctor may send a report to the Food and Drug Administration's (FDA) MedWatch Adverse Event Reporting program online (https://www.fda.gov/Safety/MedWatch) or by phone ( ). What should I know about STORAGE and DISPOSAL of this medication? Keep this medication in the container it came in, tightly closed, and out of reach of children. Store it at room temperature and away from light, excess heat and moisture (not in the bathroom). Dispose of unneeded medications in a way so that pets, children, and other people cannot take them.Do not flush this medication down the toilet. Use a medicine take-back program. Talk to your pharmacist about take-back programs in your community. Visit the FDA's Safe Disposal of Medicines website h ttps://goo.gl/c4Rm4p for more information. Keep all medication out of sight and reach of children as many containers are not child-resistant. Always lock safety caps. Place the medication in a safe location - one that is up and away and out of their sight and reach. https://www.upandaway.org What should I do in case of OVERDOSE? In case of overdose, call the poison control helpline at . Information is also available online at https://www.poisonhelp.org/help. If the victim has collapsed, had a seizure, has trouble breathing, or can't be awakened, immediately call emergency services at 911. Symptoms of overdose may include the following: ? unusual bleeding or bruising ? red, brown, or pink urine ? red or black, tarry stools ? coughing up or vomiting blood or material that looks like coffee grounds What OTHER INFORMATION should I know? Keep all appointments with your doctor. Do not let anyone else take your medication. Ask your pharmacist any questions you have about refilling your prescription. Keep a written list of all of the prescription and nonprescription (shdm-mzr-[id number]) medicines, vitamins, minerals, and dietary supplements you are taking. Bring this list with you each time you visit a doctor or if you are admitted to the hospital. You should carry the list with you in case of francisco rgencies. Brand Name(s): ? Eliquis?? This report on medications is for your information only, and is not considered individual patient advice. Because of the changing nature of drug information, please consult your physician or pharmacist about specific clinical use. The [place] [employer] represents that the information provided hereunder was formulated with a reasonable standard of care, and in conformity with professional standards in the field. The [place] [employer] makes no representations or warranties, express or implied, including, but not limited to, any implied warranty of merchantability and/or fitness for a particular purpose, with respect to such information and specifically disclaims all such warranties. Users are advised that decisions regarding drug therapy are complex medical decisions requiring the independent, informed decision of an appropriate health toddler caregiver, and the information is provided for informational purposes only. The entire monograph for a drug should be reviewed for a thorough understanding of the drug's actions, uses and side effects. The [place] [employer] does not endorse or recommend the use of any drug.The information is not a substitute for medical care. AHFS?? Patient Medication Information?. ?? Copyright, 2023. The [place] [employer]??, [address], [address], [place], [place]. All Rights Reserved. Duplication for commercial use must be authorized by [facility]. Selected Revisions: May 02, 2024. AHFS?? Patient Medication Information?. ?? Copyright, 2024 * Care Plan - Zara Goodman RN - 01/15/2025 11:56 AM EDT Problem: Urinary Diversion Goal: Optimal Stoma Healing and Function Outcome: Ongoing, Progressing Intervention: Monitor and Manage Stoma and Function Flowsheets (Taken 01/15/2025 1156) Urostomy Management: appliance integrity confirmed Changed appliance with patient and gave supplies for home, encouraged self care. * Progress Notes - Zara Goodman RN - 01/15/2025 11:54 AM EDT Images from the original note were not included. Ostomy Progress Note Visit Date: 01/15/2025 Patient Name: Dagoberto Ilsas Date of : 1955 Sister at bedside engaged in educational session. Patient changed appliance with verbal cueing. Education Discussed normal stoma characteristics. Patient and/or caregiver demonstrated pouch emptying. Patient and/or caregiver demonstrated appliance change prior to discharge. Patient taught how to use the flat barrier ring. RN taught patient to apply thin layer of stoma powder and to seal powder with barrier film to treatredness and irritation of pouching surface. Patient given tip sheet with contact numbers. Patient given picture instructions. Patient given a list of recommended products for home. Patient given 3 to 5 pouches, skin prep, powder, and ring/paste until home supplies arrive. Wound Ostomy Assessment: Urostomy RUQ (Active) 01/11/25 1224 RUQ Present on Admission: Earliest Known Present: Placed by External Staff?: Inserted by: MD Ruthie Hand Hygiene Completed: Yes Urostomy Type: Stoma Size (cm): Earliest Known Removed: Removal Reason : Wound Image 01/15/251108 Stomal Appliance 1 piece;Convex Barrier/Pouch;Flat Barrier/Pouch;Changed 01/15/251108 Site Assessment Raised;Red;Stent in Place 01/15/251108 Peristomal Assessment Intact 01/15/251108 Treatment Bag change 01/15/251108 HOME RECOMMENDATIONS Appliances One piece soft convex cut to fit cera 24731 Accessories Cavilon skin prep 3342 Sandgap adhesive remover 7760 Jody Powder 7906 Medium belt 7300 Jody ostomy ring cera 8805 Coloplast night drain bag 50078 Zara Goodman RN 01/15/2025 11:54 AM * Care Plan - Kilo Dueñas RN - 01/15/2025 11:10 AM EDT Problem: Adult Inpatient Plan of Care Goal: Plan of Care Review Outcome: Ongoing, Progressing Flowsheets Taken 01/15/2025 0131 by Belinda Stover RN Progress: no change Plan of Care Reviewed With: patient Taken 01/12/2025 0432 by Fatmata Lockwood RN Outcome Evaluation: pt will understand plan of care Goal: Patient-Specific Goal (Individualized) Outcome: Ongoing, Progressing Flowsheets (Taken 01/15/2025 0815) Patient/Family-Specific Goals (Include Timeframe): Patient will be discharged home today Individualized Care Needs: ongoing Anxieties, Fears or Concerns: none stated Goal: Absence of Hospital-Acquired Illness or Injury Outcome: Ongoing, Progressing Intervention: Identify and Manage Fall Risk Flowsheets (Taken 01/15/2025 1107) Safety Promotion/Fall Prevention: activity supervised Intervention: Prevent Skin Injury Flowsheets (Taken 01/15/2025 110) Body Position: weight shifting Skin Protection: protective footwear used Intervention: Prevent and Manage VTE (Venous Thromboembolism) Risk Flowsheets (Taken 01/15/2025 110) VTE Prevention/Management: bilateral SCDs (sequential compression devices) off Intervention: Prevent Infection Flowsheets (Taken 01/15/2025 110) Infection Prevention: environmental surveillance performed Goal: Optimal Comfort and Wellbeing Outcome: Ongoing, Progressing Intervention: Monitor Pain and Promote Comfort Flowsheets (Taken 01/15/20251106) Pain Management Interventions: medication (see MAR) Intervention: Provide Person-Centered Care Flowsheets (Taken 01/15/20251106) Trust Relationship/Rapport: care explained choices provided emotional support provided Problem: Infection Goal: Absence of Infection Signs and Symptoms Outcome: Ongoing, Progressing Intervention: Prevent or Manage Infection Flowsheets (Taken 01/15/20251106) Infection Management: aseptic technique maintained Fever Reduction/Comfort Measures: lightweight bedding Isolation Precautions: precautions initiated Problem: Fall Injury Risk Goal: Absence of Fall and Fall-Related Injury Outcome: Ongoing, Progressing Intervention: Identify and Manage Contributors Flowsheets (Taken 01/15/20251106) Medication Review/Management: medications reviewed Self-Care Promotion: independence encouraged Intervention: Promote Injury-Free Environment Flowsheets (Taken 01/15/20251106) Safety Promotion/Fall Prevention: activity supervised Problem: Functional Deficit Goal: Improved Balance and Postural Control Outcome: Ongoing, Progressing Intervention: Optimize Balance and Safe Activity Flowsheets (Taken 01/15/20251106) Activity Management: activity adjusted per tolerance Safety Promotion/Fall Prevention: activity supervised Self-Care Promotion: independence encouraged Goal: Improved Muscle Strength Outcome: Ongoing, Progressing Intervention: Optimize Muscle Strength Flowsheets (Taken 01/15/20251106) Activity Management: activity adjusted per tolerance Activity Assistance Provided: assistance, stand-by Self-Care Promotion: independence encouraged Goal: Compensation for Sensory Deficit Outcome: Ongoing, Progressing Intervention: Optimize Sensory Function Flowsheets (Taken 01/15/20251106) Pressure Reduction Techniques: frequent weight shift encouraged Skin Protection: protective footwear used Problem: Self-Care Deficit Goal: Improved Ability to Complete Activities of Daily Living Outcome: Ongoing, Progressing Intervention: Promote Activity and Functional [place] Flowsheets (Taken 01/15/20251106) Activity Assistance Provided: assistance, stand-by Self-Care Promotion: independence encouraged Problem: Urinary Diversion Goal: Psychosocial Adjustment Initiation Outcome: Ongoing, Progressing Intervention: Support Psychosocial Response to Surgery Flowsheets (Taken 01/15/20251106) Supportive Measures: active listening utilized goal-setting facilitated Complementary Therapy: aromatherapy utilized Goal: Effective Bowel Elimination Outcome: Ongoing, Progressing Intervention: Enhance Bowel Motility and Elimination Flowsheets (Taken 01/15/20251106) Bowel Elimination Management: hygiene measures promoted Bowel Elimination Promotion: ambulation promoted Goal: Optimal Pain Control and Function Outcome: Ongoing, Progressing Intervention: Prevent or Manage Pain Flowsheets (Taken 01/15/2025 1107) Pain Management Interventions: medication (see MAR) Complementary Therapy: aromatherapy utilized Diversional Activities: television Goal: Optimal Stoma Healing and Function Outcome: Ongoing, Progressing Intervention: Monitor and Manage Stoma and Function Flowsheets (Taken 01/15/2025 1107) Urostomy Management: appliance fit appraised Goal: Effective Urinary Elimination Outcome: Ongoing, Progressing Intervention: Promote Optimal Urine Output Flowsheets (Taken 01/15/2025 1107) Urine Elimination Promotion (Post-Diversion): oral intake adequacy assessed * Hospital Course - Trudy Andujar DO - 01/15/2025 11:02 AM EDT Grace Islas is a 69 y.o. male with PMH MIBC who presented to [facility] for surgical intervention. They were taken to the operating room on 01/12 for elective cystectomy with ileal conduit creation. The patient tolerated the procedure well and awakened from anesthesia, extubated and taken to the recovery room in a stable condition. The patient's hospital course was uncomplicated. It was felt that the patient had reached maximal benefit from hospitalization. They were deemedappropriate for discharge to Home with Home Health. On the day of discharge the patient's pain was controlled on oral medications, they were ambulating, and tolerating oral intake. The patient was discharged on 01/15/25 to Home with Home Health and will return to clinic for a follow up appointment on 01/27/25 with Dejuan Hendricks MD. No needs prior to follow up appointment. * Care Plan - Belinda Stover RN - 01/15/2025 1:34 AM EDT Problem: Adult Inpatient Plan of Care Goal: Plan of Care Review Outcome: Ongoing, Progressing Flowsheets (Taken 01/15/2025130) Progress: no change Plan of Care Reviewed With: patient Goal: Patient-Specific Goal (Individualized) Outcome: Ongoing, Progressing Goal: Absence of Hospital-Acquired Illness or Injury Outcome: Ongoing, Progressing Intervention: Identify and Manage Fall Risk Flowsheets (Taken 01/14/20251999) Safety Promotion/Fall Prevention: activity supervised assistive device/personal items within reach clutter-free environment maintained fall prevention program maintained lighting adjusted mobility aid in reach Intervention: Prevent Skin Injury Flowsheets Taken 01/15/2025130 Skin Protection: incontinence pads utilized protective footwear used Taken 01/15/2025 Body Position: weight shifting Intervention: Prevent and Manage VTE (Venous Thromboembolism) Risk Flowsheets (Taken 01/15/2025) VTE Prevention/Management: bilateral SCDs (sequential compression devices) off Intervention: Prevent Infection Flowsheets (Taken 01/15/2025130) Infection Prevention: cohorting utilized environmental surveillance performed equipment surfaces disinfected hand hygiene promoted rest/sleep promoted Goal: Optimal Comfort and Wellbeing Outcome: Ongoing, Progressing Intervention: Monitor Pain and Promote Comfort Flowsheets (Taken 01/15/2025130) Pain Management Interventions: rest care clustered pillow support provided position adjusted quiet environment facilitated Intervention: Provide Person-Centered Care Flowsheets (Taken 01/15/2025130) Trust Relationship/Rapport: care explained choices provided emotional support provided empathic listening provided questions answered questions encouraged Problem: Infection Goal: Absence of Infection Signs and Symptoms Outcome: Ongoing, Progressing Intervention: Prevent or Manage Infection Flowsheets (Taken 01/15/2025130) Infection Management: aseptic technique maintained Fever Reduction/Comfort Measures: lightweight bedding lightweight clothing Isolation Precautions: protective precautions maintained Problem: Fall Injury Risk Goal: Absence of Fall and Fall-Related Injury Outcome: Ongoing, Progressing Intervention: Identify and Manage Contributors Flowsheets (Taken 01/15/2025130) Medication Review/Management: medications reviewed Self-Care Promotion: independence encouraged Intervention: Promote Injury-Free Environment Flowsheets (Taken 01/14/20251999) Safety Promotion/Fall Prevention: activity supervised assistive device/personal items within reach clutter-free environment maintained fall prevention program maintained lighting adjusted mobility aid in reach Problem: Functional Deficit Goal: Improved Balance and Postural Control Outcome: Ongoing, Progressing Intervention: Optimize Balance and Safe Activity Flowsheets Taken 01/15/2025130 Adaptive Equipment Use: used independently Self-Care Promotion: independence encouraged Taken 01/14/20251999 Activity Management: activity adjusted per tolerance activity encouraged Safety Promotion/Fall Prevention: activity supervised assistive device/personal items within reach clutter-free environment maintained fall prevention program maintained lighting adjusted mobility aid in reach Goal: Improved Muscle Strength Outcome: Ongoing, Progressing Intervention: Optimize Muscle Strength Flowsheets Taken 01/15/2025130 Activity Assistance Provided: assistance, 1 person Adaptive Equipment Use: used independently Self-Care Promotion: independence encouraged Taken 01/14/20251999 Activity Management: activity adjusted per tolerance activity encouraged Goal: Compensation for Sensory Deficit Outcome: Ongoing, Progressing Intervention: Optimize Sensory Function Flowsheets (Taken 01/15/2025130) Pressure Reduction Techniques: frequent weight shift encouraged Sensation Impairment Protection: cues provided for safety Skin Protection: incontinence pads utilized protective footwear used Problem: Self-Care Deficit Goal: Improved Ability to Complete Activities of Daily Living Outcome: Ongoing, Progressing Intervention: Promote Activity and Functional [place] Flowsheets (Taken 01/15/2025130) Activity Assistance Provided: assistance, 1 person Adaptive Equipment Use: used independently Self-Care Promotion: independence encouraged Problem: Urinary Diversion Goal: Psychosocial Adjustment Initiation Outcome: Ongoing, Progressing Intervention: Support Psychosocial Response to Surgery Flowsheets (Taken 01/15/2025130) Supportive Measures: active listening utilized decision-making supported mindfulness techniques promoted positive reinforcement provided Goal: Effective Bowel Elimination Outcome: Ongoing, Progressing Intervention: Enhance Bowel Motility and Elimination Flowsheets (Taken 01/15/2025130) Bowel Motility Enhancement: ambulation promoted oral intake encouraged fluid intake encouraged Bowel Elimination Promotion: adequate fluid intake promoted Goal: Optimal Pain Control and Function Outcome: Ongoing, Progressing Intervention: Prevent or Manage Pain Flowsheets (Taken 01/15/2025130) Pain Management Interventions: rest care clustered pillow support provided position adjusted quiet environment facilitated Diversional Activities: smartphone tablet television Goal: Optimal Stoma Healing and Function Outcome: Ongoing, Progressing Intervention: Monitor and Manage Stoma and Function Flowsheets (Taken 01/15/2025130) Urostomy Management: appliance fit appraised Goal: Effective Urinary Elimination Outcome: Ongoing, Progressing Intervention: Promote Optimal Urine Output Flowsheets (Taken 01/15/2025130) Urine Elimination Promotion (Post-Diversion): oral intake adequacy assessed positioned to facilitate drainage * Care Plan - Zara Goodman RN - 01/14/2025 4:42 PM EDT Problem: Urinary Diversion Goal: Psychosocial Adjustment Initiation 01/14/2025 1642 by Zara Goodman RN Outcome: Ongoing, Progressing 01/14/2025 1602 by Zara Goodman RN Outcome: Ongoing, Progressing Intervention: Support Psychosocial Response to Surgery 01/14/2025 1642 by Zara Goodman RN Flowsheets (Taken 01/14/2025 1642) Supportive Measures: active listening utilized decision-making supported self-care encouraged 01/14/2025 160 by Zara Goodman RN Flowsheets (Taken 01/14/2025 1602) Supportive Measures: decision-making supported * Progress Notes - Zara Goodman RN - 01/14/2025 3:56 PM EDT Ostomy Progress Note Visit Date: 01/14/2025 Patient Name: Dagoberto Islas Date of : 1955 Followed up with patient to determine if pouch holding a seal. Currently in place no leakage,plan is to change tomorrow. 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 Per patient he will be going back home with his girlfriend and his son's girlfriend will not be available for education. He is going to speak with his sister to see if she is available for teaching tomorrow. Zara Goodman RN 01/14/2025 3:56 PM * Progress Notes - Sebastian Vasquez MD - 01/14/2025 3:23 PM EDT [facility] Inpatient Progress Note Primary Attending: Dejuan Hendricks MD Procedure(s): cystectomy with ileal conduit creation (01/12) SUBJECTIVE: - hungry this morning. Asking for diet. Walking through hallway yesterday. Passing gas. No nausea or vomiting PHYSICAL EXAM: Temp: [36.4 ??C (97.5 ??F)-37.3 ??C (99.2 ??F)] 36.4 ??C (97.5 ??F) Heart Rate: [81-95] 81 Resp: [16-18] 16 BP: (96-131)/(53-72) 121/61 SpO2: [94 %-97 %] 96 % I O Shift I O 24Hrs LDAs I/O this shift: In: 1109.9 [I.V.:1059.9; IV Piggyback:50] Out: 830 [Urine:450; Drains:380] I/O last 3 completed shifts: In: 2321.4 (24.4 mL/kg) [P.O.:360; I.V.:1696.8 (17.8 mL/kg); IV Piggyback:264.6] Out: 5060 (53.1 mL/kg) [Urine:4500 (1.3 mL/kg/hr); Drains:560] Weight: 95.3 kg Closed/Suction Drain 1 LUQ (Active) Placement Date/Time: 01/11/25 1433 Tube Number: 1 Location: LUQ Size (Fr.): (c) Drain [place] Size (mL): 100 mL Urostomy RUQ (Active) Placement Date/Time: 01/11/25 1224 Inserted by: MD Ruthie Hand Hygiene Completed: Yes Location: RUQ GEN: NAD HEENT: NCAT, EOMI RESP: Equal bilateral chest rise, normal work of breathing CV: Regular rate, appears well perfused ABD: Nondistended, incisions C/D/I : urostomy pink and patent, document preparation specialist stents in place draining clear yellow urine with mucus. EXT: No gross deformities MSK: Full ROM in BL UE NEURO: No focal deficits, alert and oriented PSYCH: Normal mood and affect LABS: Results from last 7 days Lab Units 01/14/25 1321 01/14/25 0200 WBC 10*3/uL -- 8.24 HEMOGLOBIN g/dL 9.1* 6.4* HEMATOCRIT % 28.3* 19.8* PLATELETS 10*3/uL -- 140* Results from last 7 days Lab Units 01/14/25 0200 SODIUM mmol/L 139 POTASSIUM mmol/L 3.8 CHLORIDE mmol/L 104 CO2 mmol/L 31* BUN mg/dL 11 CREATININE mg/dL 0.64* EGFR mL/min/1.73m*2 102.5 GLUCOSE mg/dL 109* CALCIUM mg/dL 8.1* IMAGING: no new urologic imaging HOSPITAL PROBLEM LIST: Principal Problem: Bladder cancer (CMS/HCC) Active Problems: Malignant neoplasm of urinary bladder, unspecified site ASSESSMENT: Grace Islas is a 69 y.o. male with bladder cancer s/p cystectomy with ileal conduit creation (01/12). Patient is progressing well postop. Plan for gi soft diet today PLAN: - gi soft diet today - standard post op cystectomy pathway Cosigned by Dejuan Hendricks MD at 01/15/2025 3:16 PM EDT Associated attestation - Dejuan Hendricks MD - 01/15/2025 3:16 PM EDT I saw and evaluated the patient. I discussed the case with the resident/fellow and agree with the findings and plan as documented. * Progress Notes - Chen Loo RN - 01/14/2025 2:32 PM EDT Case Management Adult Progress Note Grace Islas 69 y.o. male CSN: [id number] Admission: 01/11/2025 5:42 AM Primary Problem: Bladder cancer (CMS/HCC) Anticipated Discharge Date: 01/18/25 Has Discharge Plans Changed? Medicare Second Notice: Housing Circumstances: Housing Circumstances Action Taken: Medically Ready for Discharge: Additional Comments POC reviewed with primary team. Refer to primary team's note for details. Pt is not medically readyfor discharge. MD anticipates readiness for discharge 2-3 days. In??s A. Loo, BSN, apartment community assistant manager * Progress Notes - Gloria Vergara - 01/14/2025 11:22 AM EDT PHYSICAL THERAPY TREATMENT PATIENT DATA Patient Name Dagoberto Islas Session Date 01/14/2025 Total Treatment Time 23 min PT Discharge Recommendations Home with 24 hour assistance, Home health PT PT Equipment Recommendations Patient owns appropriate equipment PRECAUTIONS Medical Precautions Yes Medical Precautions: Fall precautions HOME LIVING/SET-UP Lives With Significant other Home Type Mobile home Home Equipment Rolling walker, Cane Home Layout One level, Stairs to enter with rails 3 Bathroom Layout Walk-in shower, Built-in shower seat, Grab bars, Handheld shower head Tall, Grab bars Additional Comments Significant other can provide 24 hour assistance if needed. PRIOR LEVEL OF FUNCTION Receives help from No assist required prior to admission Level of Mobility Ambulatory- community Mobility [place] Independent gait without device History of Falls No ADL Performance ADL Performance: Independent PRESENTATION Oxygen Oxygen Therapy: Supplemental oxygen O2 Delivery Method: Nasal cannula O2 Flow Rate (L/min): 4 L/min Lines and Tubes telemetry Closed/Suction Drain 1 LUQ (Active) Urostomy RUQ (Active) Peripheral IV 01/13/25 Anterior;Distal;Right;Upper Arm (Active) Peripheral IV 01/14/25 Left Antecubital (Active) Pre-Session Supine, Head of bed elevated, Lines intact RN agreeable to therapy session timing Post-Session Sitting in chair, Chair alarm, Lines intact, Call light in reach, RN notified Pt's needs met Bracing (if applicable) None SUBJECTIVE PARTICIPANTS IN CARE Visitors Present No, Subjective Report Pt has NOT been: * Ambulating hallway distances since last PT treatment. Pt HAS been: * Ambulating in-room distances * Transferring Bed <> Chair since last PT treatment. Pt remains unaware when pt may be discharged from [facility]. Personnel Representative (if applicable) Personnel Representative: Not Applicable OBJECTIVE & INTERVENTIONS PAIN Pain Intensity / Location Pre-Mobility: lower abdominal pain, moderate Pain Intensity / Location Post-Mobility: lower abdominal pain, moderate Prior to PT's departure: * rest was provided * pt was positioned for comfort * pillow support was provided * RN was informed of pt's pain DELIRIUM SCREENING RASS: Alert and calm Feature 3: Altered Level of Consciousness: Negative THERAPEUTIC ACTIVITY Treatment Minutes 23 PT assisted and instructed pt in functional mobility activities to improve their ability to move around safely and reduce the effects of post illness/surgery related sedentary status. Pt participatedin bed mobility, supine-sit and [id number] transfers. They were able to progress to ambulation on level surfaces using a rolling walker. PT provided education to patient regarding safe walker management and reduced speed during turns. Verbal and tactile cues given to pt by PT for: postural alignment, weight shifting, improved biomechanics, safety, movement sequence, hand/foot placement, assistive device management, and appropriate activity pacing. BED MOBILITY Level of [place] Physical/Non- physical Assist Adaptive Equipment Utilized Rolling/ Turning Stand-by assist (to the right) Set-up required, Verbal Cues, Nonverbal cues (demo/gestures), Minimal cues Bed rails Scooting/ Bridging Stand-by assist (anteriorly to EOB) Set-up required, Supervision, Verbal Cues, Minimal cues Supine to Sit Contact guard (to the right) Set-up required, Verbal Cues, Nonverbal cues (demo/gestures), Minimal cues, HOB elevated Bed rails TRANSFERS Level of [place] Physical/Non- physical Assist Adaptive Equipment Utilized Sit to Stand Contact guard Set-up required, Verbal Cues, Nonverbal cues (demo/gestures), Minimal cues, 1 person + 1 person to manage equipment Walker, rolling Stand to sit Contact guard Verbal Cues, Nonverbal cues (demo/gestures), Minimal cues, 1 person + 1 person to manage equipment Walker, rolling BALANCE Postural Appearance Posture: Within Functional Limits Level of [place] Balance Support Facilitated Activities Static Sit Standby assist Right upper extremity support, Left upper extremity support, Feet supported Sitting on edge of bed Dynamic Sit Standby assisst No upper extremity support, Feet supported Dynamic Sitting-Balance: Lateral weight shifts, Anterior/Posterior weight shifts, Reaching for objects Static Stand Standby assist Right upper extremity support, Left upper extremity support (on RW) Standing beside bed Dynamic Stand Contact guard Right upper extremity support, Left upper extremity support (on RW) Dynamic Sitting-Balance: Lateral weight shifts, Anterior/Posterior weight shifts, Reaching for objects AMBULATION Level of [place] Distance Adaptive Equipment Utilized Ambulation Contact guard assist, Minimal verbal cues, Minimal tactile cues, Additional assist needed for line management 320' with one seated rest break Rolling walker Comments PT fitted pt with RW to prepare for safe ambulation. PT presence was necessary for: * decreasing patient's risk of falling while progressing pt's distances Standardized Assessments [facility] 6-Clicks Mobility Assessment Difficulty patient has turning over in bed (including adjusting bedclothes, sheets, and blankets)?:None Difficulty patient has sitting down on and standing up from a chair with arms (wheelchair, bedside commode, etc.)?: A little Difficulty patient has moving from lying on back to sitting on the side of the bed?: A little How much help does the patient need moving to and from a bed to a chair (including a wheelchair)?: A little How much help does the patient need to walk in hospital room?: A little How much help does the patient need climbing 3-5 steps with a railing?: A lot [facility] 6-Clicks Mobility Assessment Total : 18 ASSESSMENT Pt is improving, as noted by: pt ambulated increased walking distances during this PT treatment compared to last PT treatment. Pt has the following impairments: impaired activity tolerance, impaired posture, impaired balance, pain, and poor transfer sequencing, which are limiting the pt from performing independent functional mobility. Based on this assessment, Pt's current level of function is significantly lower than the reported prior level of function and for this reason further PT treatmentis indicated. Inpatient PT will continue to follow. PT RECOMMENDATIONS Discharge Destination Home with 24 hour assistance, Home health PT Discharge Equipment Patient owns appropriate equipment PLAN PT to continue skilled therapy interventions to facilitate pt in reaching their functional goals. PT GOALS PT GOAL DETAILS DATE ASSESSED STATUS PROGRESS PT Goal 1: Pt will be independent with bed mobility with HOB flat PT Goal 1 Established Date: 01/12/25 PT Goal 1 Time Frame: 2 weeks 01/26/25 PT Goal 2: Pt will ambulate >200 ft with SBA and LRAD PT Goal 2 Established Date: 01/12/25 PT Goal 2 Time Frame: 2 weeks 01/26/25 PT Goal 3: Pt will complete bed to chair transfer with mod I and LRAD PT Goal 3 Established Date: 01/12/25 PT Goal 3 Time Frame: 2 weeks 01/26/25 Written by Gloria Vergara on 01/14/25 at 3:18 PM. * Progress Notes - Romana Madden W - 01/14/2025 11:21 AM EDT Occupational Therapy Treatment Patient Name: Dagoberto Islas Today's Date: 01/14/2025 Total Treatment Time: 24 minutes OT Discharge Recommendations: Home with 24 hour assistance, Home health PT Equipment Recommended: Patient owns appropriate equipment Subjective Patient agreeable to OT session. Participants in Care Family/Caregiver Present: No Personnel Representative: Not Applicable Presentation Oxygen Therapy: Supplemental oxygen O2 Delivery Method: Nasal cannula O2 Flow Rate (L/min): 4 L/min Lines and Tubes: Telemetry Closed/Suction Drain 1 LUQ (Active) Urostomy RUQ (Active) Peripheral IV 01/13/25 Anterior;Distal;Right;Upper Arm (Active) Peripheral IV 01/14/25 Left Antecubital (Active) Pre-Session: Supine, Head of bed elevated, Lines intact Pre-Session Comments: RN agreeable to therapy session. Post-Session: Sitting in chair, Chair alarm, Lines intact, Call light in reach, RN notified Post-Session Comments: Patient positioned for comfort/pressure relief with pillow supports and all needs in reach. RN present. Precautions Medical Precautions: Fall precautions Objective Pain Patient reported abdominal pain when getting out of bed. No formal pain rating provided. RN aware. Patient positioned for comfort/pressure relief with pillow supports and all needs in reach at end ofsession. Delirium Screening RASS: Alert and calm Confusion Assessment Method-ICU (CAM-ICU/PCAM-ICU) Feature 1: Acute Onset or Fluctuating Course: Negative Feature 2: Inattention: Negative Feature 3: Altered Level of Consciousness: Negative Feature 4: Disorganized Thinking: Negative Overall CAM-ICU/PCAM-ICU: Negative Cognition Cognition Overall Cognitive Status: Within Functional Limits Arousal/Alertness: Appropriate responses to stimuli Mood/Behavior: Alert Orientation Level: Oriented X4 Single Step Commands: Consistently, 100% of the time Multi-Step Commands: Consistently, 100% of the time Method of Communication: Verbal Safety Judgment: Decreased awareness of need for assistance Awareness of Errors: Assistance required to identify errors made Deficit Awareness: Fully aware of deficits Attention Span: Appears intact, Attends with cues to redirect Bed Mobility Bed Mobility Exam: Rolling/Turning Level of [place]: Stand-by assist (to the right) Physical/Nonphysical Assist: Set-up required, Verbal Cues, Nonverbal cues (demo/gestures), Minimal cues Assistive Device: Bed rails Bed Mobility Exam: Scooting/Bridging Level of [place]: Stand-by assist (anteriorly to EOB) Physical/Nonphysical Assist: Set-up required, Supervision, Verbal Cues, Minimal cues Bed Mobility Exam: Supine to Sit Level of [place]: Contact guard (to the right) Physical/Nonphysical Assist: Set-up required, Verbal Cues, Nonverbal cues (demo/gestures), Minimal cues, HOB elevated Assistive Device: Bed rails Transfers Transfer Exam: Sit to stand Level of [place]: Contact guard Physical/Nonphysical Assist: Set-up required, Verbal Cues, Nonverbal cues (demo/gestures), Minimal cues, 1 person + 1 person to manage equipment Assistive Device: Walker, rolling Transfer Exam: Stand to Sit Level of [place]: Contact guard Physical/Nonphysical Assist: Verbal Cues, Nonverbal cues (demo/gestures), Minimal cues, 1 person + 1 person to manage equipment Assistive Device: Walker, rolling Functional Mobility Device: Rolling walker Assistance: Contact guard assist, Minimal verbal cues, Minimal tactile cues, Additional assist needed for line management Distance : 320' with one seated rest break Balance Postural Appearance Posture: Within Functional Limits Static Sitting Balance Static Sitting-Balance Support: Right upper extremity support, Left upper extremity support, Feet supported Static Sitting-Level of Assistance: Standby assist Dynamic Sitting Balance Dynamic Sitting-Balance Support: No upper extremity support, Feet supported Level of Assistance: Standby assisst Static Standing Balance Static Standing-Balance Support: Right upper extremity support, Left upper extremity support (on RW) Static Standing-Level of Assistance: Standby assist Dynamic Standing Balance Dynamic Standing-Balance Support: Right upper extremity support, Left upper extremity support (on RW) Dynamic Standing Level of Assistance: Contact guard Self-Care Interventions Self Care/Home Management (ADLs) Time Entry: 24 Self_Care Interventions: OT facilitated patient engagement in sequential task training emphasizing functional transitions required for increased performance in higher level BADLs/IADLs and continued progress towards OT POC goals. Refer to the above sections for patient performance and levels of assistance required for aspects of mobility completed on this date. Of note, increased time required for: appropriate room set-up via environmental modifications to optimize patient safety and accessibility to all areas of treatment spaces, skilled management of medical lines/tubes, vital monitoring, task modification/grading activity to provide functional challenge and promote success , provision of pacing/rest breaks, BADL retraining, verbal and tactile cues tofacilitate sequencing and proper body mechanics during functional tasks, patient education, and staff education (RN/Tech/TEAM in regards to patient safety/vitals/mobility during session). Patient Education: To optimize patient safety while inpatient and at time of discharge, OT providedpatient education regarding: role of OT within POC, progression of therapy, discharge recommendations, precautions, BADL retraining, work simplification, energy conservation, adaptive techniques, adaptive equipment, fall prevention, and bathroom safety. Of note, the patient verbalized understanding. Patient, however, would continue to benefit from additional education to promote increased carryover of provided information. Refer to below sections for additional self-care interventions completedduring session. Feeding Feeding Level of Assistance: Setup, Independent Feeding Where Assessed: Chair Level Feeding Interventions: Therapist provided set-up assist for tray table in reach. Patient IND with bringing drink to mouth. Grooming Grooming Interventions: Patient deferred grooming tasks on this date. UE Dressing UE Dressing Level of Assistance: Setup, Minimum assistance UE Dressing Where Assessed: Edge of bed UE Dressing Interventions: OT provided set-up/MIN assist to halie additional gown over back like robe. Assistance required only d/t lines present in bilateral UE. OT anticipates that patient will require SBA without lines. Lower Extremity Dressing Sock Level of Assistance: (SBA) LE Dressing Where Assessed: Edge of bed LE Dressing Interventions: Patient adjusted bilateral socks with SBA in unsupported sitting utilizing figure-four positioning. Toileting Toileting Level of Assistance: Contact guard Where Assessed: (Simulated) Toileting Interventions: OT engaged patient in partial toileting routine in which bedside commode or standard toilet transfers were simulated during aspects of mobility. Patient required CGA to complete functional sit < > stand and CGA to engage in navigation of greater than household distances (320') with RW. OT anticipates that patient will continue to progress well while inpatient with pe rsonal toileting routines. Standardized Assessments [facility] 6-Click Daily Activities Help from Other: Don/Doff Regular Lower Body Clothings: None Help From Other: Bathing: Little Help From Other: Toileting: Little Help From Other: Don/Doff Upper Body Clothings: None Help From Other: Grooming: Little Help From Other: Eating Meals: None [facility] 6 Click - Daily Activities Score: 21/24 [facility] Scoring Interpretation: Scores greater than 20.5 suggest ability to perform daily self-cares independently and may indicate a high suitability for a home/self-care discharge. Assessment Patient tolerated today's session well with rest breaks as needed and stable vitals. On this date, the patient required grossly SBA~CGA for aspects of mobility with increased time (assist for line management) and utilization of RW. Varied levels of assistance required/anticipated for presented self-cares; refer to self-care section for additional details. Patient continues to present with impaired occupational performances within completing BADL/IADL safely, functional transfers, functional mobility, balance, activity tolerance, decreased safety awareness, and self-limiting factors including pain and fatigue impacting their current level of performance and ability to engage in occupations with full independence. Despite these impairments, patient is appropriate to return home with 24/7-hour assistance with HH PT as OT anticipates that the patient will progress well while inpatient. Patient reported having necessary assistance available as/if needed at time of d/c. While inpatient, patient would continue to benefit from skilled OT services to promote increased independence within desired occupations, return to prior level of function, decrease caregiver stress, reduce risk of falls/potential readmission, and to promote a safe discharge when medically appropriate. OT Recommendations Discharge Destination: Home with 24 hour assistance, Home health PT Discharge Equipment: Patient owns appropriate equipment Plan Continue with established OT plan of care 2-5/wk to progress towards OT POC goals. Goals OT GOAL DETAILS Goal Established Date Time Frame Goal Status OT Goal 1: Patient will complete grooming while standing sinkside with independence. 01/12/25 2 weeks OT Goal 2: Patient will complete lower body dressing with independence using AE as needed. OT Goal 3: Patient will complete toilet transfers with modified independence. 01/12/25 2 weeks Written by Romana Madden on 01/14/25 at 12:50 PM. * Care Plan - Luke Styles RN - 01/14/2025 10:13 AM EDT Problem: Adult Inpatient Plan of Care Goal: Plan of Care Review Outcome: Ongoing, Progressing Flowsheets (Taken 01/14/2025 1010) Progress: improving Plan of Care Reviewed With: patient Goal: Patient-Specific Goal (Individualized) Outcome: Ongoing, Progressing Goal: Absence of Hospital-Acquired Illness or Injury Outcome: Ongoing, Progressing Intervention: Identify and Manage Fall Risk Flowsheets (Taken 01/14/2025 0800) Safety Promotion/Fall Prevention: activity supervised assistive device/personal items within reach clutter-free environment maintained fall prevention program maintained mobility aid in reach lighting adjusted nonskid shoes/slippers when out of bed room organization consistent safety round/check completed toileting scheduled Intervention: Prevent Skin Injury Flowsheets (Taken 01/14/2025 1010) Body Position: weight shifting Skin Protection: protective footwear used Intervention: Prevent and Manage VTE (Venous Thromboembolism) Risk Flowsheets (Taken 01/14/2025 1010) VTE Prevention/Management: medication Intervention: Prevent Infection Flowsheets (Taken 01/14/2025 1010) Infection Prevention: hand hygiene promoted personal protective equipment utilized single patient room provided Goal: Optimal Comfort and Wellbeing Outcome: Ongoing, Progressing Intervention: Monitor Pain and Promote Comfort Flowsheets (Taken 01/14/2025 1010) Pain Management Interventions: quiet environment facilitated Intervention: Provide Person-Centered Care Flowsheets (Taken 01/14/2025 1010) Trust Relationship/Rapport: care explained questions answered questions encouraged Problem: Infection Goal: Absence of Infection Signs and Symptoms Outcome: Ongoing, Progressing Intervention: Prevent or Manage Infection Flowsheets (Taken 01/14/2025 1010) Infection Management: aseptic technique maintained Fever Reduction/Comfort Measures: lightweight bedding lightweight clothing Isolation Precautions: protective Problem: Fall Injury Risk Goal: Absence of Fall and Fall-Related Injury Outcome: Ongoing, Progressing Intervention: Identify and Manage Contributors Flowsheets (Taken 01/14/2025 1010) Medication Review/Management: medications reviewed Self-Care Promotion: independence encouraged Intervention: Promote Injury-Free Environment Flowsheets (Taken 01/14/2025 0800) Safety Promotion/Fall Prevention: activity supervised assistive device/personal items within reach clutter-free environment maintained fall prevention program maintained mobility aid in reach lighting adjusted nonskid shoes/slippers when out of bed room organization consistent safety round/check completed toileting scheduled Problem: Functional Deficit Goal: Improved Balance and Postural Control Outcome: Ongoing, Progressing Intervention: Optimize Balance and Safe Activity Flowsheets Taken 01/14/2025 1010 Activity Management: activity adjusted per tolerance Adaptive Equipment Use: use encouraged Self-Care Promotion: independence encouraged Taken 01/14/2025 0800 Safety Promotion/Fall Prevention: activity supervised assistive device/personal items within reach clutter-free environment maintained fall prevention program maintained mobility aid in reach lighting adjusted nonskid shoes/slippers when out of bed room organization consistent safety round/check completed toileting scheduled Goal: Improved Muscle Strength Outcome: Ongoing, Progressing Intervention: Optimize Muscle Strength Flowsheets (Taken 01/14/2025 1010) Activity Management: activity adjusted per tolerance Activity Assistance Provided: assistance, 1 person Adaptive Equipment Use: use encouraged Self-Care Promotion: independence encouraged Goal: Compensation for Sensory Deficit Outcome: Ongoing, Progressing Intervention: Optimize Sensory Function Flowsheets (Taken 01/14/2025 101) Pressure Reduction Techniques: frequent weight shift encouraged Sensation Impairment Protection: cues provided for safety Skin Protection: protective footwear used Problem: Self-Care Deficit Goal: Improved Ability to Complete Activities of Daily Living Outcome: Ongoing, Progressing Intervention: Promote Activity and Functional [place] Flowsheets (Taken 01/14/2025 1010) Activity Assistance Provided: assistance, 1 person Adaptive Equipment Use: use encouraged Self-Care Promotion: independence encouraged Problem: Urinary Diversion Goal: Psychosocial Adjustment Initiation Outcome: Ongoing, Progressing Intervention: Support Psychosocial Response to Surgery Flowsheets (Taken 01/14/2025 1010) Supportive Measures: active listening utilized Complementary Therapy: essential oils utilized Goal: Effective Bowel Elimination Outcome: Ongoing, Progressing Intervention: Enhance Bowel Motility and Elimination Flowsheets (Taken 01/14/2025 1010) Bowel Elimination Management: toileting offered relaxation techniques promoted Bowel Motility Enhancement: ambulation promoted Bowel Elimination Promotion: adequate fluid intake promoted Goal: Optimal Pain Control and Function Outcome: Ongoing, Progressing Intervention: Prevent or Manage Pain Flowsheets (Taken 01/14/2025 1010) Pain Management Interventions: quiet environment facilitated Complementary Therapy: essential oils utilized Diversional Activities: television Goal: Optimal Stoma Healing and Function Outcome: Ongoing, Progressing Intervention: Monitor and Manage Stoma and Function Flowsheets (Taken 01/14/2025 1010) Urostomy Management: appliance fit appraised Goal: Effective Urinary Elimination Outcome: Ongoing, Progressing Intervention: Promote Optimal Urine Output Flowsheets (Taken 01/14/2025 1010) Urine Elimination Promotion (Post-Diversion): positioned to facilitate drainage * Care Plan - Belinda Stover RN - 01/14/2025 3:04 AM EDT Problem: Adult Inpatient Plan of Care Goal: Plan of Care Review Outcome: Ongoing, Progressing Flowsheets Taken 01/14/2025 0301 by Belinda Stover RN Progress: improving Taken 01/13/2025 0931 by Luke Styles RN Plan of Care Reviewed With: patient Goal: Patient-Specific Goal (Individualized) Outcome: Ongoing, Progressing Goal: Absence of Hospital-Acquired Illness or Injury Outcome: Ongoing, Progressing Intervention: Identify and Manage Fall Risk Flowsheets (Taken 01/13/20251999) Safety Promotion/Fall Prevention: activity supervised assistive device/personal items within reach clutter-free environment maintained lighting adjusted mobility aid in reach nonskid shoes/slippers when out of bed room organization consistent Intervention: Prevent Skin Injury Flowsheets (Taken 01/13/20251999) Body Position: weight shifting neutral body alignment Skin Protection: incontinence pads utilized Intervention: Prevent and Manage VTE (Venous Thromboembolism) Risk Flowsheets (Taken 01/13/20251999) VTE Prevention/Management: bilateral SCDs (sequential compression devices) on Intervention: Prevent Infection Flowsheets (Taken 01/14/2025 030) Infection Prevention: cohorting utilized environmental surveillance performed equipment surfaces disinfected hand hygiene promoted personal protective equipment utilized rest/sleep promoted Goal: Optimal Comfort and Wellbeing Outcome: Ongoing, Progressing Intervention: Monitor Pain and Promote Comfort Flowsheets (Taken 01/14/2025 030) Pain Management Interventions: [id number] dosing utilized Intervention: Provide Person-Centered Care Flowsheets (Taken 01/14/2025300) Trust Relationship/Rapport: care explained choices provided emotional support provided empathic listening provided questions encouraged Problem: Infection Goal: Absence of Infection Signs and Symptoms Outcome: Ongoing, Progressing Intervention: Prevent or Manage Infection Flowsheets (Taken 01/14/2025 030) Infection Management: aseptic technique maintained Fever Reduction/Comfort Measures: lightweight clothing lightweight bedding Isolation Precautions: protective precautions maintained Problem: Fall Injury Risk Goal: Absence of Fall and Fall-Related Injury Outcome: Ongoing, Progressing Intervention: Identify and Manage Contributors Flowsheets (Taken 01/14/2025 0301) Medication Review/Management: medications reviewed Self-Care Promotion: independence encouraged BADL personal objects within reach BADL personal routines maintained Intervention: Promote Injury-Free Environment Flowsheets (Taken 01/13/20251999) Safety Promotion/Fall Prevention: activity supervised assistive device/personal items within reach clutter-free environment maintained lighting adjusted mobility aid in reach nonskid shoes/slippers when out of bed room organization consistent Problem: Functional Deficit Goal: Improved Balance and Postural Control Outcome: Ongoing, Progressing Intervention: Optimize Balance and Safe Activity Flowsheets Taken 01/14/2025300 Activity Management: activity adjusted per tolerance activity encouraged Adaptive Equipment Use: used independently Self-Care Promotion: independence encouraged BADL personal objects within reach BADL personal routines maintained Taken 01/13/20251999 Safety Promotion/Fall Prevention: activity supervised assistive device/personal items within reach clutter-free environment maintained lighting adjusted mobility aid in reach nonskid shoes/slippers when out of bed room organization consistent Goal: Improved Muscle Strength Outcome: Ongoing, Progressing Intervention: Optimize Muscle Strength Flowsheets Taken 01/14/2025300 Activity Management: activity adjusted per tolerance activity encouraged Adaptive Equipment Use: used independently Self-Care Promotion: independence encouraged BADL personal objects within reach BADL personal routines maintained Taken 01/13/20251999 Activity Assistance Provided: assistance, 1 person Goal: Compensation for Sensory Deficit Outcome: Ongoing, Progressing Intervention: Optimize Sensory Function Flowsheets Taken 01/14/2025300 Pressure Reduction Techniques: frequent weight shift encouraged pressure points protected Sensation Impairment Protection: cues provided for safety Taken 01/13/20251999 Skin Protection: incontinence pads utilized Problem: Self-Care Deficit Goal: Improved Ability to Complete Activities of Daily Living Outcome: Ongoing, Progressing Intervention: Promote Activity and Functional [place] Flowsheets Taken 01/14/2025300 Adaptive Equipment Use: used independently Self-Care Promotion: independence encouraged BADL personal objects within reach BADL personal routines maintained Taken 01/13/20251999 Activity Assistance Provided: assistance, 1 person Problem: Urinary Diversion Goal: Psychosocial Adjustment Initiation Outcome: Ongoing, Progressing Intervention: Support Psychosocial Response to Surgery Flowsheets (Taken 01/13/2025 1338 by Zara Goodman RN) Supportive Measures: active listening utilized positive reinforcement provided Goal: Effective Bowel Elimination Outcome: Ongoing, Progressing Intervention: Enhance Bowel Motility and Elimination Flowsheets (Taken 01/14/2025 0301) Bowel Elimination Management: sitting position facilitated relaxation techniques promoted Bowel Motility Enhancement: ambulation promoted fluid intake encouraged Bowel Elimination Promotion: adequate fluid intake promoted Goal: Optimal Pain Control and Function Outcome: Ongoing, Progressing Intervention: Prevent or Manage Pain Flowsheets (Taken 01/14/2025 030) Pain Management Interventions: [id number] dosing utilized Diversional Activities: smartphone television Goal: Optimal Stoma Healing and Function Outcome: Ongoing, Progressing Intervention: Monitor and Manage Stoma and Function Flowsheets (Taken 01/14/2025 030) Urostomy Management: appliance integrity confirmed stoma output monitored Goal: Effective Urinary Elimination Outcome: Ongoing, Progressing Intervention: Promote Optimal Urine Output Flowsheets (Taken 01/14/2025 030) Urine Elimination Promotion (Post-Diversion): catheter patency maintained oral intake adequacy assessed * Query Clarification Note - Dejuan Hendricks MD - 01/13/2025 3:53 PM EDT Physician Clarification Please review the following and provide your response below. Please clarify which of the following accurately represents the patient's renal status: []Acute kidney injury []Other (please specify) [x]Lab findings without clinical significance This documentation will become part of the patient's medical record. * Query Clarification Note - Dejuan Hendricks MD - 01/13/2025 3:52 PM EDT Physician Clarification Please review the following and provide your response below. Please clarify the appropriate diagnosis, if significant, that supports the below abnormalities andadditional evaluation, monitoring, and/or treatment provided: [x] Acute blood loss anemia on chronic anemia of neoplastic disease [] Acute blood loss anemia [] Other anemia, please specify [] Other, please specify This documentation will become part of the patient's medical record. * Care Plan - Zara Goodman RN - 01/13/2025 1:39 PM EDT Problem: Urinary Diversion Goal: Psychosocial Adjustment Initiation Outcome: Ongoing, Progressing Intervention: Support Psychosocial Response to Surgery Flowsheets (Taken 01/13/2025 1338) Supportive Measures: active listening utilized positive reinforcement provided Problem: Urinary Diversion Goal: Optimal Stoma Healing and Function Outcome: Ongoing, Progressing Intervention: Monitor and Manage Stoma and Function Flowsheets (Taken 01/13/2025 0931 by Luke Styles RN) Urostomy Management: appliance integrity confirmed * Progress Notes - Zara Goodman RN - 01/13/2025 1:36 PM EDT Images from the original note were not included. Ostomy Progress Note Visit Date: 01/13/2025 Patient Name: Dagoberto Islas Date of : 1955 Patient changed appliance with verbal cueing and standby assist. Will follow up to determine if able to maintain a seal. Education All of patient's current ostomy questions answered. Discussed normal stoma characteristics. Patient and/or caregiver demonstrated appliance change prior to discharge. Patient taught how to use the flat barrier ring. RN taught patient to apply thin layer of stoma powder and to seal powder with barrier film to treatredness and irritation of pouching surface. Wound Ostomy Assessment: Urostomy RUQ (Active) 01/11/25 1224 RUQ Present on Admission: Earliest Known Present: Placed by External Staff?: Inserted by: MD Ruthie Hand Hygiene Completed: Yes Urostomy Type: Stoma Size (cm): Earliest Known Removed: Removal Reason : Wound Image 01/13/25 1021 Stomal Appliance 2 piece 01/13/25 1110 Site Assessment Petrey;Red 01/13/25 1132 Peristomal Assessment Unable to assess 01/13/25 1132 Treatment Site care;Placement checked 01/13/25 1021 Output (mL) 200 mL 01/13/25 1329 Zara Goodman RN 01/13/2025 1:36 PM * Progress Notes - Chen Loo RN - 01/13/2025 12:59 PM EDT Case Management Adult Initial Progress Note Grace Islas 69 y.o. male CSN: [id number] Admission: 01/11/2025 5:42 AM Primary Problem: Bladder cancer (CMS/HCC) Display Decorator reviewed chart and spoke with patient at bedside to complete this Initial Case Management Assessment. PCP: Riley Hunter MD Emergency Contact: Extended Emergency Contact Information Primary Emergency Contact: UrsulaYolanda Mobile Relation: Daughter Personnel Representative needed? No Secondary Emergency Contact: Chastity Bryant Mobile Relation: Other Personnel Representative needed? No Insurance: Primary Visit Coverage Payer Plan Sponsor Code Group Number Group Name [employer] MEDICARE [employer] GOLD PLUS [id number] [employer] [place] [employer] Primary Visit Coverage Subscriber Subscriber ID Subscriber Name Subscriber [facility] Subscriber Address [id number] GRACE ISLAS [id number] [address] [place] [address] Secondary Visit Coverage Payer Plan Sponsor Code Group Number Group Name MEDICAID-[facility] MEDICAID TRADITIONAL Secondary Visit Coverage Subscriber Subscriber ID Subscriber Name Subscriber [facility] Subscriber Address [id number] GRACE ISLAS [id number] [address] [place] [address] Patient information: Primary Caregiver: Self Support System: Immediate family Daily Living Activities: Functional Status: Independent Living Arrangements: Spouse/Significant other Type of Residence: Private residence, Single Level [address] [place] [address] Current DME: Equipment Currently Used at Home: oxygen, nebulizer Current DME Provider: [employer] Income Information: Income Source: Retired Housing Circumstances-Z Codes: Patient Referred to: Anticipated Discharge Date: 01/17/25 Patient's Discharge Goal: return home Assistance Available at Discharge: daughter Discharge Transport: daughter Follow Up Transport: daughter Home Health / Home Infusion / Outpatient Dialysis Services: Current DME Provider: [facility] Living Will/Advance Directive/Power of Staff Forester /Guardian: None reported. Additional Comments: Referral for HH PT/OT + SN sent to agencies via careport. CM introduced herself and explain its role. CM confirmed pt's home address and contact information.Pt lives with significant other, has nebulizer machine, oxygen w/ [employer] and doesn't have any HH services. Per pt's daughter, she will provide assistance as needed as well as transportation. In??s KUNAL Butts, apartment community assistant manager Social Drivers of Health Food Insecurity: No Food Insecurity (01/13/2025) Hunger Vital Sign Worried About Running Out of Food in the Last Year: Never true Ran Out of Food in the Last Year: Never true Recent Concern: Food Insecurity - Food Insecurity Present (10/27/2024) Hunger Vital Sign Worried About Running Out of Food in the Last Year: Sometimes true Ran Out of Food in the Last Year: Never true Alcohol Use: Not At Risk (11/09/2024) AUDIT-C Frequency of Alcohol Consumption: Never Average Number of Drinks: Patient does not drink Frequency of Binge Drinking: Never Housing Stability: Low Risk (01/13/2025) Housing Stability Vital Sign Unable to Pay for Housing in the Last Year: No Number of Times Moved in the Last Year: 0 Homeless in the Last Year: No Tobacco Use: Medium Risk (01/11/2025) Patient History Smoking Tobacco Use: Former Smokeless Tobacco Use: Never Passive Exposure: Past Transportation Needs: No Transportation Needs (01/13/2025) PRAPARE - Transportation Lack of Transportation (Medical): No Lack of Transportation (Non-Medical): No Depression: Not at risk (11/13/2024) PHQ-2 PHQ-2 Score: 0 Utilities: Not At Risk (01/13/2025) [facility] Utilities Threatened with loss of utilities: No Stress: Not on file Intimate Partner Violence: Not At Risk (01/13/2025) Humiliation, Afraid, Rape, and Kick questionnaire Fear of Current or Ex-Partner: No Emotionally Abused: No Physically Abused: No Sexually Abused: No Physical Activity: Not on file Social Connections: Unknown (10/27/2024) Social Connection and Isolation Panel Frequency of Communication with Friends and Family: Not on file Frequency of Social Gatherings with Friends and Family: Not on file Attends Adventism Services: Not on file Active Member of Clubs or Organizations: Not on file Attends Club or Organization Meetings: Not on file Marital Status: Living with partner Financial Resource Strain: Medium Risk (10/27/2024) Overall Financial Resource Strain (CARDIA) Difficulty of Paying Living Expenses: Somewhat hard * Nursing Note - Luke Styles RN - 01/13/2025 12:37 PM EDT CVC pulled at bedside with 2 nurses per provider order. Timeout performed. Pt instructed to performvalsalva maneuver during removal. Pressure held until hemostasis confirmed. Occlusive dressing applied. Catheter intact upon removal. * Care Plan - Luke Styles RN - 01/13/2025 9:34 AM EDT Problem: Adult Inpatient Plan of Care Goal: Plan of Care Review Outcome: Ongoing, Progressing Flowsheets (Taken 01/13/2025930) Progress: improving Plan of Care Reviewed With: patient Goal: Patient-Specific Goal (Individualized) Outcome: Ongoing, Progressing Flowsheets (Taken 01/13/2025814) Patient/Family-Specific Goals (Include Timeframe): pt will remain free from falls/injury this shift Individualized Care Needs: safety Anxieties, Fears or Concerns: denies Goal: Absence of Hospital-Acquired Illness or Injury Outcome: Ongoing, Progressing Intervention: Identify and Manage Fall Risk Flowsheets (Taken 01/13/2025814) Safety Promotion/Fall Prevention: activity supervised assistive device/personal items within reach clutter-free environment maintained fall prevention program maintained lighting adjusted mobility aid in reach nonskid shoes/slippers when out of bed room organization consistent safety round/check completed toileting scheduled Intervention: Prevent Skin Injury Flowsheets (Taken 01/13/2025930) Body Position: weight shifting Skin Protection: protective footwear used Intervention: Prevent and Manage VTE (Venous Thromboembolism) Risk Flowsheets (Taken 01/13/2025930) VTE Prevention/Management: bilateral SCDs (sequential compression devices) on Intervention: Prevent Infection Flowsheets (Taken 01/13/2025930) Infection Prevention: environmental surveillance performed hand hygiene promoted personal protective equipment utilized single patient room provided Goal: Optimal Comfort and Wellbeing Outcome: Ongoing, Progressing Intervention: Monitor Pain and Promote Comfort Flowsheets (Taken 01/13/2025930) Pain Management Interventions: quiet environment facilitated Intervention: Provide Person-Centered Care Flowsheets (Taken 01/13/2025930) Trust Relationship/Rapport: care explained questions answered questions encouraged Problem: Infection Goal: Absence of Infection Signs and Symptoms Outcome: Ongoing, Progressing Intervention: Prevent or Manage Infection Flowsheets (Taken 01/13/2025930) Infection Management: aseptic technique maintained Fever Reduction/Comfort Measures: lightweight clothing lightweight bedding Isolation Precautions: protective Problem: Fall Injury Risk Goal: Absence of Fall and Fall-Related Injury Outcome: Ongoing, Progressing Intervention: Identify and Manage Contributors Flowsheets (Taken 01/13/2025930) Medication Review/Management: medications reviewed Self-Care Promotion: independence encouraged Intervention: Promote Injury-Free Environment Flowsheets (Taken 01/13/2025814) Safety Promotion/Fall Prevention: activity supervised assistive device/personal items within reach clutter-free environment maintained fall prevention program maintained lighting adjusted mobility aid in reach nonskid shoes/slippers when out of bed room organization consistent safety round/check completed toileting scheduled Problem: Functional Deficit Goal: Improved Balance and Postural Control Outcome: Ongoing, Progressing Intervention: Optimize Balance and Safe Activity Flowsheets Taken 01/13/2025930 Activity Management: activity adjusted per tolerance activity encouraged Adaptive Equipment Use: use encouraged Self-Care Promotion: independence encouraged Taken 01/13/2025814 Safety Promotion/Fall Prevention: activity supervised assistive device/personal items within reach clutter-free environment maintained fall prevention program maintained lighting adjusted mobility aid in reach nonskid shoes/slippers when out of bed room organization consistent safety round/check completed toileting scheduled Goal: Improved Muscle Strength Outcome: Ongoing, Progressing Intervention: Optimize Muscle Strength Flowsheets (Taken 01/13/2025930) Activity Management: activity adjusted per tolerance activity encouraged Activity Assistance Provided: assistance, 1 person Adaptive Equipment Use: use encouraged Self-Care Promotion: independence encouraged Goal: Compensation for Sensory Deficit Outcome: Ongoing, Progressing Intervention: Optimize Sensory Function Flowsheets (Taken 01/13/2025930) Pressure Reduction Techniques: frequent weight shift encouraged Sensation Impairment Protection: cues provided for safety Skin Protection: protective footwear used Problem: Self-Care Deficit Goal: Improved Ability to Complete Activities of Daily Living Outcome: Ongoing, Progressing Intervention: Promote Activity and Functional [place] Flowsheets (Taken 01/13/2025930) Activity Assistance Provided: assistance, 1 person Adaptive Equipment Use: use encouraged Self-Care Promotion: independence encouraged Problem: Urinary Diversion Goal: Psychosocial Adjustment Initiation Outcome: Ongoing, Progressing Intervention: Support Psychosocial Response to Surgery Flowsheets (Taken 01/13/2025930) Supportive Measures: active listening utilized Complementary Therapy: essential oils utilized Goal: Effective Bowel Elimination Outcome: Ongoing, Progressing Intervention: Enhance Bowel Motility and Elimination Flowsheets (Taken 01/13/2025930) Bowel Elimination Management: relaxation techniques promoted Bowel Motility Enhancement: ambulation promoted Bowel Elimination Promotion: adequate fluid intake promoted Goal: Optimal Pain Control and Function Outcome: Ongoing, Progressing Intervention: Prevent or Manage Pain Flowsheets (Taken 01/13/2025930) Pain Management Interventions: quiet environment facilitated Complementary Therapy: essential oils utilized Diversional Activities: movies Goal: Optimal Stoma Healing and Function Outcome: Ongoing, Progressing Intervention: Monitor and Manage Stoma and Function Flowsheets (Taken 01/13/2025930) Urostomy Management: appliance integrity confirmed Goal: Effective Urinary Elimination Outcome: Ongoing, Progressing Intervention: Promote Optimal Urine Output Flowsheets (Taken 01/13/2025930) Urine Elimination Promotion (Post-Diversion): catheter patency maintained * Progress Notes - Trudy Andujar DO - 01/13/2025 7:00 AM EDT [facility] Inpatient Progress Note Primary Attending: Dejuan Hendricks MD Procedure(s): cystectomy with ileal conduit creation (01/12) SUBJECTIVE: - Patient continues to endorsed that he is feeling well this morning. He states that he was able toambulate. PHYSICAL EXAM: Temp: [36.4 ??C (97.5 ??F)-37 ??C (98.6 ??F)] 36.4 ??C (97.6 ??F) Heart Rate: [86-92] 92 Resp: [16-20] 16 BP: (101-115)/(60-73) 101/63 SpO2: [93 %-98 %] 94 % I O Shift I O 24Hrs LDAs I/O this shift: In: 1961.4 [I.V.:1696.8; IV Piggyback:264.6] Out: 825 [Urine:600; Drains:225] I/O last 3 completed shifts: In: 800 (8.4 mL/kg) [P.O.:360; I.V.:440 (4.6 mL/kg)] Out: 4115 (43.2 mL/kg) [Urine:3570 (1 mL/kg/hr); Drains:545] Weight: 95.3 kg Closed/Suction Drain 1 LUQ (Active) Placement Date/Time: 01/11/25 1433 Tube Number: 1 Location: LUQ Size (Fr.): (c) Drain [place] Size (mL): 100 mL Urostomy RUQ (Active) Placement Date/Time: 01/11/25 1224 Inserted by: MD Ruthie Hand Hygiene Completed: Yes Location: RUQ GEN: NAD HEENT: NCAT, EOMI RESP: Equal bilateral chest rise, normal work of breathing CV: Regular rate, appears well perfused ABD: Nondistended, incisions C/D/I : urostomy pink and patent, document preparation specialist stents in place draining clear yellow urine with mucus. EXT: No gross deformities MSK: Full ROM in BL UE NEURO: No focal deficits, alert and oriented PSYCH: Normal mood and affect LABS: Results from last 7 days Lab Units 01/13/25 0454 WBC 10*3/uL 8.00 HEMOGLOBIN g/dL 7.2* HEMATOCRIT % 22.3* PLATELETS 10*3/uL 147* Results from last 7 days Lab Units 01/13/25 0454 SODIUM mmol/L 138 POTASSIUM mmol/L 4.7 CHLORIDE mmol/L 104 CO2 mmol/L 32* BUN mg/dL 14 CREATININE mg/dL 0.73 EGFR mL/min/1.73m*2 98.5 GLUCOSE mg/dL 98 CALCIUM mg/dL 8.4* IMAGING: no new urologic imaging HOSPITAL PROBLEM LIST: Principal Problem: Bladder cancer (CMS/HCC) Active Problems: Malignant neoplasm of urinary bladder, unspecified site ASSESSMENT: Grace Islas is a 69 y.o. male with bladder cancer s/p cystectomy with ilealconduit creation (01/12). Patient is progressing well postop. AF, VSS, minimally increased oxygen requirements now needing 4L NC. Labs demonstrating appropriate postoperative changes wbc 8 (8.75), hgb 7.2 (8.6), cr trending down 0.73 (0.92). Urostomy with appropriate output. PLAN: -FLD, boosts -DC central line -SCD -Continue document preparation specialist stents -IS -Encourage OOB, ambulation -PT/OT -Ostomy care Cosigned by Dejuan Hendricks MD at 01/15/2025 3:16 PM EDT Associated attestation - Dejuan Hendricks MD - 01/15/2025 3:16 PM EDT I saw and evaluated the patient. I discussed the case with the resident/fellow and agree with the findings and plan as documented. * Care Plan - Shelby Winter - 01/13/2025 12:17 AM EDT Problem: Adult Inpatient Plan of Care Goal: Absence of Hospital-Acquired Illness or Injury Outcome: Ongoing, Progressing Intervention: Identify and Manage Fall Risk Flowsheets (Taken 01/12/2025 0820 by Luke Styles, RN) Safety Promotion/Fall Prevention: activity supervised assistive device/personal items within reach clutter-free environment maintained fall prevention program maintained lighting adjusted mobility aid in reach nonskid shoes/slippers when out of bed safety round/check completed room organization consistent other (see comments) Intervention: Prevent Skin Injury Flowsheets Taken 01/13/2025 0000 by Marisa Saldivar Body Position: weight shifting Taken 01/12/2025 0951 by Luke Styles, RN Skin Protection: protective footwear used Problem: Infection Goal: Absence of Infection Signs and Symptoms Outcome: Ongoing, Progressing Intervention: Prevent or Manage Infection Flowsheets (Taken 01/12/2025950 by Luke Styles, RN) Infection Management: aseptic technique maintained Fever Reduction/Comfort Measures: lightweight bedding lightweight clothing Isolation Precautions: protective Problem: Functional Deficit Goal: Improved Muscle Strength Outcome: Ongoing, Progressing Intervention: Optimize Muscle Strength Flowsheets Taken 01/12/2025 0951 by Luke Styles, RN Self-Care Promotion: independence encouraged Taken 01/12/2025 0820 by Luke Styles, RN Activity Management: activity adjusted per tolerance activity encouraged Problem: Self-Care Deficit Goal: Improved Ability to Complete Activities of Daily Living Outcome: Ongoing, Progressing Intervention: Promote Activity and Functional [place] Flowsheets (Taken 01/12/2025950 by Luke Styles, RN) Self-Care Promotion: independence encouraged * Care Plan - Nieves Alegre RN - 01/12/2025 4:40 PM EDT Problem: Urinary Diversion Goal: Optimal Stoma Healing and Function Outcome: Ongoing, Progressing Intervention: Monitor and Manage Stoma and Function Flowsheets (Taken 01/12/2025 1640) Urostomy Management: appliance fit appraised appliance integrity confirmed Note: Patient evaluated by WOCN, individualized orders placed and care plan interventions placed, see wound care note for further details. * Progress Notes - Nieves Alegre RN - 01/12/2025 4:30 PM EDT Ostomy Progress Note Visit Date: 01/12/2025 Patient Name: Dagoberto Islas Date of : 1955 Reviewed urostomy packet with patient and family; engaged and asking questions. Will follow up for hands on practice and home recommendations. Urostomy in place to RLQ, raised red stoma with stents, intact appliance, pink tinged urine output. Education Ostomy Discharge Teaching Packet given to patient and /or caregiver. Ostomy Discharge Teaching reviewed with patient and/or caregiver. All of patient's current ostomy questions answered. Discussed normal stoma characteristics. Patient provided return demonstration of how to snap together a 2 piece appliance. Patient provided return demonstration of how to open and close the pouch. Reviewed and provided written information on support binders. Discussed when to change the appliance. Nieves Alegre RN 01/12/2025 4:30 PM * Progress Notes - Najma House - 01/12/2025 9:58 AM EDT Physical Therapy Evaluation Patient Name: Dagoberto Islas Today's Date: 01/12/2025 PT Discharge Recommendations: Home with 24 hour assistance, Home health PT Equipment Recommended: Patient owns appropriate equipment History Grace Islas is 69 y.o. male admitted 01/11/2025 for work-up of Bladder cancer ([facility] Problem List Active Hospital Problems Diagnosis Date Noted Malignant neoplasm of urinary bladder, unspecified site 01/11/2025 Bladder cancer ([facility]) 08/03/2024 Procedures 01/11/2025 Procedure(s): CYSTECTOMY Past Medical History Patient has a past medical history of PONCE (acute kidney injury), PONCE (acute kidney injury) (04/22/24), Bladder mass, COPD (chronic obstructive pulmonary disease), Depression, GERD (gastroesophageal reflux disease), and Lung mass. Past Surgical History Patient has a past surgical history that includes Colon surgery; Total knee arthroplasty (Left); Foot surgery; Appendectomy; Cholecystectomy; Finger surgery (Right); Carpal tunnel release (Right); Transurethral resection of bladder tumor; and Bladder surgery (08/03/2024). Precautions Medical Precautions: Fall precautions Subjective Pt and RN agreeable to therapy. Pt reports his girlfriend is able to physically assist at home should he need help. Participants in Care Family/Caregiver Present: No Personnel Representative: Not Applicable Presentation Oxygen Therapy: Supplemental oxygen O2 Delivery Method: Nasal cannula O2 Flow Rate (L/min): 4 L/min Lines and Tubes: Telemetry CVC Triple Lumen 01/11/25 Right Internal jugular (Active) Closed/Suction Drain 1 LUQ (Active) Urostomy RUQ (Active) Urethral Catheter Non-latex 16 Fr. (Active) Pre-Session: Supine, Head of bed elevated, Lines intact Pre-Session Comments: RN agreeable to session. Post-Session: Sitting in chair, Chair alarm, Lines intact, RN notified, Call light in reach Post-Session Comments: All needs met. Home Living/Set-up Lives With: Significant other Home Type: Mobile home Home Adaptive Equipment: Rolling walker, Cane Home Layout: One level, Stairs to enter with rails Number of Stairs: 3 Bathroom: Tub/Shower: Walk-in shower, Built-in shower seat, Grab bars, Handheld shower head Bathroom: Toilet: Tall, Grab bars Home Living Comments: Significant other can provide 24 hour assistance if needed. Prior Level of Function Receives Help From: No assist required prior to admission Level of Mobility: Ambulatory- community Mobility [place]: Independent gait without device History of Falls: No ADL Performance: Independent Patient/Family Goals return to home Objective Pain Pt reported 3/10 pain in abdomen. Their pain was worsened during bed mobility and transfers. PT provided increased mobility, cuing for strategies to reduce pain during mobility, and repositioning. Ptpositioned for comfort at the end of the session. Delirium Screening RASS: Alert and calm Confusion Assessment Method-ICU (CAM-ICU/PCAM-ICU) Feature 1: Acute Onset or Fluctuating Course: Negative Feature 2: Inattention: Negative Feature 3: Altered Level of Consciousness: Negative Feature 4: Disorganized Thinking: Negative Overall CAM-ICU/PCAM-ICU: Negative Cognition Overall Cognitive Status: Within Functional Limits Arousal/Alertness: Appropriate responses to stimuli Mood/Behavior: Alert Orientation Level: Oriented X4 Single Step Commands: Consistently Multi-Step Commands: Consistently Method of Communication: Verbal Vision - Basic Assessment Baseline Vision: Glasses reading, Glasses distance Current Vision: Intact Right Upper Extremity Examination RUE Assessment: Within Functional Limits Manual Muscle Testing - RUE: Within functional limits Sensation Light Touch: Right Upper Extremity: Mild impairment (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) Left Upper Extremity Examination LUE ROM Assessment LUE Assessment: Within Functional Limits Manual Muscle Testing - LUE Manual Muscle Testing - LUE: Within functional limits Sensation Light Touch: Left Upper Extremity: Mild impairment (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) Right Lower Extremity Examination RLE ROM Assessment RLE Assessment: Within Functional Limits Manual Muscle Testing - RLE Manual Muscle Testing - RLE: Within functional limits except (grossly 4/5, hip flexion not fomrallyassessed d/t abdominal surgery) Sensation Light Touch: Right Lower Extremity: Mild impairment (Numbness throughout.) Left Lower Extremity Examination LLE Assessment: Within Functional Limits Manual Muscle Testing: Within functional limits except (grossly 4/5, hip flexion not fomrally assessed d/t abdominal surgery) Sensation Light Touch: Left Lower Extremity: Mild impairment (Numbness throughout.) Bed Mobility Bed Mobility Exam: Rolling/Turning Level of [place]: Stand-by assist Physical/Nonphysical Assist: Set-up required, Verbal Cues Assistive Device: Bed rails Bed Mobility Exam: Scooting/Bridging Level of [place]: Contact guard (Seated scoot forward while seated EOB.) Physical/Nonphysical Assist: Set-up required, Verbal Cues Assistive Device: Bed rails Bed Mobility Exam: Supine to Sit Level of [place]: Contact guard Physical/Nonphysical Assist: Set-up required, Verbal Cues Assistive Device: Bed rails Transfers Transfer Exam: Sit to stand Level of [place]: Contact guard Physical/Nonphysical Assist: Set-up required, Verbal Cues Assistive Device: Walker, rolling Transfer Exam: Stand to Sit Level of [place]: Contact guard Physical/Nonphysical Assist: Set-up required, Verbal Cues Assistive Device: Walker, rolling Balance Static Sitting Balance Static Sitting-Balance Support: Right upper extremity support, Left upper extremity support, Feet supported Static Sitting-Level of Assistance: Standby assist Dynamic Sitting Balance Dynamic Sitting-Balance Support: No upper extremity support, Feet supported Dynamic Sitting-Balance: Lateral weight shifts, Anterior/Posterior weight shifts, Reaching for objects Level of Assistance: Standby assisst Static Standing Balance Static Standing-Balance Support: Right upper extremity support, Left upper extremity support Static Standing-Level of Assistance: Standby assist Dynamic Standing Balance Dynamic Standing-Balance Support: Right upper extremity support, Left upper extremity support Dynamic Standing-Balance: Lateral weight shifts, Anterior/Posterior weight shifts Dynamic Standing Level of Assistance: Contact guard Therapeutic Activity (25 minutes) Pt participating in bed mobility, transfers, balance, and gait training this session. See listed sections for additional details. Pt requiring increased time this session for rest breaks after bed mobility, and after transferring to chair. PT monitoring vitals at EOB due to pt report of not feelingwell. BP: 109/72 (84), HR 91 bpm, SpO2 95%. Pt reporting being very hot during this session, providing with cool washcloth. Pt IV falling out prior to gait training, requiring RN intervention. Providing education to continue using RW upon discharge home for increased safety and increased support following abdominal surgery. Educating on using log roll technique to get in and out of bed forreduced pressure on adbomen during bed mobility. Gait Training (15 minutes) Device: Rolling walker Assistance: Contact guard assist Distance : 100 feet Gait Analysis: Pt is demonstrating 2-point gait pattern using rolling walker, reciprocal gait pattern, decreased step length bilaterally, decreased gait speed, decreased toy, forward flexed posture, downward gaze, decreased safety awareness, and wide base of support. Pt with 1 LOB during ambulation requiring min A from PT to correct. Pt reports he has moments where his knees give way. Interventions: PT provided cuing for upright posture, shoulder retraction, forward gaze, safety awareness, and reaching back for chair prior to sitting and pushing up from surface before reaching for walker when standing. Response: Pt demonstrated improved gait pattern but pt required occasional cues to maintain changes Standardized Assessments [facility] 6-Clicks Mobility Assessment Difficulty patient has turning over in bed (including adjusting bedclothes, sheets, and blankets)?:A little Difficulty patient has sitting down on and standing up from a chair with arms (wheelchair, bedside commode, etc.)?: A little Difficulty patient has moving from lying on back to sitting on the side of the bed?: A little How much help does the patient need moving to and from a bed to a chair (including a wheelchair)?: A little How much help does the patient need to walk in hospital room?: A little How much help does the patient need climbing 3-5 steps with a railing?: A lot [facility] 6-Clicks Mobility Assessment Total : 17 Assessment Patient demonstrates impairments listed below limiting participation in ADLs, ability to ambulate safely within his home and ability to ambulate community distances. Patient most limited this sessionby fatigue and pain. Patient requires CGA for ambulation, as well as SBA for transfers and balance putting him at an increased risk for falls. Patient would benefit from returning home with 24 hr assistance and PT. Patient may continue to benefit from skilled PT to address impairments, reduce patient's participation restrictions and activity limitations, and maximize independence. Impairments: Decreased endurance, ventilation, and/or gas exchange, Impaired cognition/safety awareness, Impaired gait dynamics/performance, Impaired locomotion, Impaired balance, Impaired functionalmobility/transfers, Decreased strength, Pain, Impaired sensation/sensory processing Activity Limitations: Inability to ambulate independently, Inability to sit independently, Inability to ambulate community distances, Inability to complete ADLs independently, Inability to transfer independently Participation Restrictions: Self-care, Home management, Community leisure Activity Tolerance: Tolerates 30 min activity with multiple rests Evaluation/Treatment Tolerance: Patient limited by fatigue, Patient limited by pain Diagnosis: impaired functional mobility Eval Complexity History Profile: 1 - 2 personal factors and/or comorbidities Clinical Presentation: Evolving clinical presentation with changing characteristics Clinical Decision Making: Moderate complexity PT Recommendations Discharge Destination: Home with 24 hour assistance, Home health PT Discharge Equipment: Patient owns appropriate equipment Plan Planned PT Interventions Balance training, Bed mobility training, Gait training, Transfer training, Neuromuscular re-education, ROM, Strengthening, Stretching, Functional Mobility, Caregiver training PT Frequency 2 - 5 times per week PT Duration 2 weeks Goals PT GOAL DETAILS Time Frame PT Goal 1: Pt will be independent with bed mobility with HOB flat 2 weeks PT Goal 2: Pt will ambulate >200 ft with SBA and LRAD 2 weeks PT Goal 3: Pt will complete bed to chair transfer with mod I and LRAD 2 weeks Written by Najma House, Exam Candidate, #[id number] on 01/12/25 at 10:08 AM. Cosigned by Sandra Gandhi at 01/12/2025 3:45 PM EDT Associated attestation - Sandra Gandhi - 01/12/2025 3:45 PM EDT I have reviewed note written by Jania House, Physical Therapist NPTE candidate #[id number] and am in agreement with its content. Sandra Gandhi, PT * Progress Notes - Gareth Dixon Alee - 01/12/2025 9:57 AM EDT OCCUPATIONAL THERAPY EVALUATION PATIENT DATA Patient Name Dagoberto Islas Session Date 01/12/2025 OT Discharge Recommendations Home with 24 hour assistance, Home health PT Equipment Recommendations Patient owns appropriate equipment Total treatment time 55 minutes HISTORY Grace Islas is 69 y.o. male admitted 01/11/2025 for work-up of Bladder cancer ([facility] Hospital Course 1. Malignant neoplasm of urinary bladder, unspecified site ([facility]) Procedures (if applicable) 01/11/2025 Procedure(s): CYSTECTOMY Past Medical History Patient has a past medical history of PONCE (acute kidney injury), PONCE (acute kidney injury) (04/22/24), Bladder mass, COPD (chronic obstructive pulmonary disease), Depression, GERD (gastroesophageal reflux disease), and Lung mass. Past Surgical History Patient has a past surgical history that includes Colon surgery; Total knee arthroplasty (Left); Foot surgery; Appendectomy; Cholecystectomy; Finger surgery (Right); Carpal tunnel release (Right); Transurethral resection of bladder tumor; and Bladder surgery (08/03/2024). PRECAUTIONS Medical Precautions Medical Precautions: Fall precautions SUBJECTIVE PARTICIPANTS IN CARE Patient/Caregiver Comments Patient agreeable to participating with OT. Visitors Present None. PRESENTATION Oxygen Supplemental oxygen Nasal cannula 4 L/min Telemetry Yes Lines and Tubes CVC Triple Lumen 01/11/25 Right Internal jugular (Active) Closed/Suction Drain 1 LUQ (Active) Urostomy RUQ (Active) Urethral Catheter Non-latex 16 Fr. (Active) Pre-Session Supine, Head of bed elevated, Lines intact. RN agreeable to session. Post-Session Sitting in chair, Chair alarm, Lines intact, RN notified, Call light in reach. All needs met. HOME LIVING/SET-UP Lives With Significant other Home Type Mobile home Home Equipment Rolling walker, Cane Home Layout One level, Stairs to enter with rails Number of Stairs: 3 Bathroom Layout Walk-in shower, Built-in shower seat, Grab bars, Handheld shower head Bathroom: Toilet: Tall, Grab bars Additional Comments Significant other can provide 24 hour assistance if needed. PRIOR LEVEL OF FUNCTION Receives help from No assist required prior to admission Level of Mobility Ambulatory- community Mobility [place] Independent gait without device History of Falls No ADL Performance ADL Performance: Independent PATIENT/FAMILY GOALS Patient wants to return home with his significant other. OBJECTIVE PAIN Patient complained of 3/10 abdominal pain prior to mobility. Patient provided rest breaks as neededto manage pain during session. Patient positioned for comfort at the end of the session. DELIRIUM SCREENING RASS: Alert and calm Confusion Assessment Method-ICU (CAM-ICU/PCAM-ICU) Feature 3: Altered Level of Consciousness: Negative COGNITION Overall Cognitive Status Within Functional Limits Arousal/Alertness Appropriate responses to stimuli Mood/Behavior Alert Orientation Oriented X4 Command Following Single Step Commands: Consistently Multi-Step Commands: Consistently Method of Communication Verbal Additional Observations VISION Baseline Vision Glasses reading, Glasses distance Current Vision (if different) Current Vision: Intact RIGHT UPPER EXTREMITY EXAMINATION Range of Motion Within Functional Limits Manual Muscle Testing Within functional limits Light Touch Sensation Mild impairment (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) LEFT UPPER EXTREMITY EXAMINATION Range of Motion Within Functional Limits Manual Muscle Testing Within functional limits Light Touch Sensation Mild impairment (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) RIGHT LOWER EXTREMITY EXAMINATION Range of Motion Within Functional Limits Manual Muscle Testing Within functional limits except (grossly 4/5, hip flexion not fomrally assessed d/t abdominal surgery) Light Touch Sensation Mild impairment (Numbness throughout.) LEFT LOWER EXTREMITY EXAMINATION Range of Motion Within Functional Limits Manual Muscle Testing Within functional limits except (grossly 4/5, hip flexion not fomrally assessed d/t abdominal surgery) Light Touch Sensation Mild impairment (Numbness throughout.) SELF-CARE Treatment Minutes (if applicable) 40 Comments During session OT provided these skilled services: Monitoring of vitals to ensure activity tolerance during ADLs. Provision of increased time frames to support optimal level of patient participation. Environmental set-up to ensure safety and accessibility to all needed areas of treatment space. Patient engaged in sequential task training emphasizing functional transitions and movement for increased participation in higher level ADL and functional transfer tasks including bathing, toileting,and household/community mobility as detailed below. Task/activity modification with grading as needed to achieve safety while also providing appropriate functional challenge. Level of [place] Adaptive Equipment Utilized Interventions Grooming Setup Chair level Patient complained of feeling hot and was provided a cool wash cloth to wash his face during a seated rest break. Patient washed his face with setup for task. Lower Body Dressing Sock Level of Assistance: Minimal verbal cues (SBA.) Patient trained in figure four technique to increase safety and independence with lower body ADLs. Patient doffed and donned socks while sitting EOB with supervision for task requiring min verbal cues for instruction and SBA for sitting balance. BED MOBILITY Level of [place] Physical/Non-physical Assist Adaptive Equipment Utilized Rolling/ Turning Stand-by assist Set-up required, Verbal Cues Bed rails Scooting/ Bridging Contact guard (Seated scoot forward while seated EOB.) Set-up required, Verbal Cues Bed rails Supine to Sit Contact guard Set-up required, Verbal Cues Bed rails TRANSFERS Level of [place] Physical/Non- physical Assist Adaptive Equipment Utilized Sit to Stand Contact guard Set-up required, Verbal Cues Walker, rolling Stand to sit Contact guard Set-up required, Verbal Cues Walker, rolling BALANCE Level of [place] Balance Support Interventions Static Sit Standby assist Right upper extremity support, Left upper extremity support, Feet supported Dynamic Sit Standby assist No upper extremity support, Feet supported Dynamic Sitting-Balance: Lateral weight shifts, Anterior/Posterior weight shifts, Reaching for objects Static Stand Standby assist Right upper extremity support, Left upper extremity support Dynamic Stand Contact guard (Min A to correct 1 LOB when ambulating.) Right upper extremity support, Left upper extremity support Lateral weight shifts, Anterior/Posterior weight shifts FUNCTIONAL MOBILITY Level of [place] Distance Adaptive Equipment Utilized Ambulation Contact guard assist (Min A to correct 1 LOB.) 100 feet Rolling walker STANDARDIZED ASSESSMENTS [facility] 6-Click Daily Activities Help from Other: Don/Doff Regular Lower Body Clothings: Little Help From Other: Bathing: Little Help From Other: Toileting: Little Help From Other: Don/Doff Upper Body Clothings: Little Help From Other: Grooming: Little Help From Other: Eating Meals: None [facility] 6 Click - Daily Activities Score: 19 ASSESSMENT Patient agreeable to OT session focused on functional mobility and ADL tasks this date with rest asneeded. Patient cooperative throughout session, however, remains limited by pain and fatigue at this time. Patient demonstrates deficits in ADL performance, functional endurance, and functional mobility and would benefit from continued skilled inpatient OT treatment to address deficits and increasesafety and independence. Recommending the patient return home with 24 hour assistance when deemed medically appropriate to do so by physicians. OT FINDINGS Impaired ADL performance, Impaired IADL performance, Decreased endurance/ventilation/gas exchange, Impaired sensation/sensory processing, Impaired functional mobility, Impaired balance Evaluation/ Treatment Tolerance (if identified) Patient limited by fatigue, Patient limited by pain Rehab Potential (if identified) Good, to achieve stated therapy goals EVAL COMPLEXITY Occupational Profile Expanded review of medical/therapy records and additional review of physical, cognitive, or psychosocial history Performance Deficits Activities of daily living (ADLs), Instrumental activities of daily living (IADLs), Body structures, Habits, Routines, Roles Clinical Decision Making Moderate Overall Eval Complexity Moderate OT RECOMMENDATIONS Discharge Destination Home with 24 hour assistance, Home health PT Discharge Equipment Patient owns appropriate equipment PLAN Planned OT Interventions ADL retraining, IADL retraining, Balance training, Bed mobility Training, Transfer training, Functional mobility OT Frequency 2 - 5 times per week OT Duration 2 weeks OT GOALS OT GOAL DETAILS Time Frame OT Goal 1: Patient will complete grooming while standing sinkside with independence. 2 weeks OT Goal 2: Patient will complete lower body dressing with independence using AE as needed. 2 weeks OT Goal 3: Patient will complete toilet transfers with modified independence. 2 weeks Written by Gareth Dixon on 01/12/25 at 10:10 AM. * Care Plan - Luke Styles RN - 01/12/2025 9:53 AM EDT Problem: Adult Inpatient Plan of Care Goal: Plan of Care Review Outcome: Ongoing, Progressing Flowsheets Taken 01/12/2025 0951 by Luke Styles, RN Progress: no change Taken 01/12/2025 0432 by Fatmata Lockwood RN Plan of Care Reviewed With: patient Goal: Patient-Specific Goal (Individualized) Outcome: Ongoing, Progressing Flowsheets (Taken 01/12/2025 0820) Patient/Family-Specific Goals (Include Timeframe): pt will remain free from falls/injury this shift Individualized Care Needs: safety Anxieties, Fears or Concerns: denies Goal: Absence of Hospital-Acquired Illness or Injury Outcome: Ongoing, Progressing Intervention: Identify and Manage Fall Risk Flowsheets (Taken 01/12/2025 0820) Safety Promotion/Fall Prevention: activity supervised assistive device/personal items within reach clutter-free environment maintained fall prevention program maintained lighting adjusted mobility aid in reach nonskid shoes/slippers when out of bed safety round/check completed room organization consistent other (see comments) Intervention: Prevent Skin Injury Flowsheets (Taken 01/12/2025950) Body Position: weight shifting Skin Protection: protective footwear used Intervention: Prevent and Manage VTE (Venous Thromboembolism) Risk Flowsheets (Taken 01/12/2025950) VTE Prevention/Management: bilateral SCDs (sequential compression devices) on Intervention: Prevent Infection Flowsheets (Taken 01/12/2025950) Infection Prevention: personal protective equipment utilized hand hygiene promoted single patient room provided Goal: Optimal Comfort and Wellbeing Outcome: Ongoing, Progressing Intervention: Monitor Pain and Promote Comfort Flowsheets (Taken 01/12/2025950) Pain Management Interventions: quiet environment facilitated Intervention: Provide Person-Centered Care Flowsheets (Taken 01/12/2025950) Trust Relationship/Rapport: care explained questions encouraged Problem: Infection Goal: Absence of Infection Signs and Symptoms Outcome: Ongoing, Progressing Intervention: Prevent or Manage Infection Flowsheets (Taken 01/12/2025950) Infection Management: aseptic technique maintained Fever Reduction/Comfort Measures: lightweight bedding lightweight clothing Isolation Precautions: protective Problem: Fall Injury Risk Goal: Absence of Fall and Fall-Related Injury Outcome: Ongoing, Progressing Intervention: Identify and Manage Contributors Flowsheets (Taken 01/12/2025950) Medication Review/Management: medications reviewed Self-Care Promotion: independence encouraged Intervention: Promote Injury-Free Environment Flowsheets (Taken 01/12/2025 08) Safety Promotion/Fall Prevention: activity supervised assistive device/personal items within reach clutter-free environment maintained fall prevention program maintained lighting adjusted mobility aid in reach nonskid shoes/slippers when out of bed safety round/check completed room organization consistent other (see comments) * Progress Notes - Trudy Andujar DO - 01/12/2025 7:30 AM EDT [facility] Inpatient Progress Note Primary Attending: Dejuan Hendricks MD Procedure(s): cystectomy with ileal conduit creation (01/12) SUBJECTIVE: - patient states he is feeling well this AM, denies N/V. PHYSICAL EXAM: Temp: [36.4 ??C (97.6 ??F)-37 ??C (98.6 ??F)] 36.4 ??C (97.6 ??F) Heart Rate: [88-107] 88 Resp: [12-28] 18 BP: (110-129)/(53-79) 114/71 SpO2: [90 %-98 %] 91 % I O Shift I O 24Hrs LDAs I/O this shift: In: 440 [I.V.:440] Out: 930 [Urine:750; Drains:180] I/O last 3 completed shifts: In: 3704.3 (38.9 mL/kg) [P.O.:60; I.V.:2644.3 (27.8 mL/kg); IV Piggyback:1000] Out: 2110 (22.2 mL/kg) [Urine:1070 (0.3 mL/kg/hr); Drains:340; Blood:700] Weight: 95.3 kg Closed/Suction Drain 1 LUQ (Active) Placement Date/Time: 01/11/25 1433 Tube Number: 1 Location: LUQ Size (Fr.): (c) Drain [place] Size (mL): 100 mL Urostomy RUQ (Active) Placement Date/Time: 01/11/25 1224 Inserted by: MD Ruthie Hand Hygiene Completed: Yes Location: RUQ Urethral Catheter Non-latex 16 Fr. (Active) Placement Date/Time: 01/11/25 0908 Inserted by: Devon Mercedes MS3 Hand Hygiene Completed: Yes Catheter Type: Non-latex Tube Size (Fr.): 16 Fr. Catheter Balloon Size: 10 mL Difficult Placement: No Number Of Attempts: 1 Urine Returned: Yes GEN: NAD HEENT: NCAT, EOMI RESP: Equal bilateral chest rise, normal work of breathing CV: Regular rate, appears well perfused ABD: Nondistended, incisions C/D/I : urostomy pink and patent, document preparation specialist stents in place draining clear yellow urine with mucus. EXT: No gross deformities MSK: Full ROM in BL UE NEURO: No focal deficits, alert and oriented PSYCH: Normal mood and affect LABS: Results from last 7 days Lab Units 01/12/25 0452 WBC 10*3/uL 8.75 HEMOGLOBIN g/dL 8.6* HEMATOCRIT % 26.8* PLATELETS 10*3/uL 179 Results from last 7 days Lab Units 01/12/25 0452 SODIUM mmol/L 136 POTASSIUM mmol/L 6.2* CHLORIDE mmol/L 105 CO2 mmol/L 25 BUN mg/dL 22 CREATININE mg/dL 0.92 EGFR mL/min/1.73m*2 90.0 GLUCOSE mg/dL 120* CALCIUM mg/dL 8.2* IMAGING: no new urologic imaging HOSPITAL PROBLEM LIST: Principal Problem: Bladder cancer (CMS/HCC) Active Problems: Malignant neoplasm of urinary bladder, unspecified site ASSESSMENT: Grace Islas is a 69 y.o. male with bladder cancer s/p cystectomy with ileal conduit creation (01/12). Patient is progressing well postop. AF, VSS, requiring 3L NC. Labs demonstrate appropriate postop changes wbc 8.75 (8.38), hgb 8.6 (10.5), cr (0.6). Urostomy with appropriateoutput. PLAN: -CLD -SCD -Continue document preparation specialist stents -IS -Encourage OOB, ambulation -PT/OT -Ostomy care Cosigned by Dejuan Hendricks MD at 01/12/2025 9:20 PM EDT Associated attestation - Dejuan Hendricks MD - 01/12/2025 9:20 PM EDT I saw and evaluated the patient with the resident/fellow. I discussed the case with the resident/fellow and agree with the findings and plan as documented. * Care Plan - Fatmata Lockwood RN - 01/12/2025 4:34 AM EDT Problem: Adult Inpatient Plan of Care Goal: Plan of Care Review Outcome: Ongoing, Progressing Flowsheets (Taken 01/12/2025 0432) Progress: no change Outcome Evaluation: pt will understand plan of care Plan of Care Reviewed With: patient Goal: Patient-Specific Goal (Individualized) Outcome: Ongoing, Progressing Flowsheets (Taken 01/11/2025 2100) Patient/Family-Specific Goals (Include Timeframe): Patient will remain free of injury this shift Individualized Care Needs: safety Anxieties, Fears or Concerns: none stated Goal: Absence of Hospital-Acquired Illness or Injury Outcome: Ongoing, Progressing Intervention: Identify and Manage Fall Risk Flowsheets (Taken 01/12/2025 0432) Safety Promotion/Fall Prevention: activity supervised assistive device/personal items within reach fall prevention program maintained clutter-free environment maintained Intervention: Prevent Skin Injury Flowsheets (Taken 01/12/2025 0432) Body Position: weight shifting Skin Protection: incontinence pads utilized Intervention: Prevent and Manage VTE (Venous Thromboembolism) Risk Flowsheets (Taken 01/12/2025 043) VTE Prevention/Management: SCDs (sequential compression devices) on medication Intervention: Prevent Infection Flowsheets (Taken 01/12/2025 043) Infection Prevention: hand hygiene promoted single patient room provided Goal: Optimal Comfort and Wellbeing Outcome: Ongoing, Progressing Intervention: Monitor Pain and Promote Comfort Flowsheets (Taken 01/12/2025 043) Pain Management Interventions: medication (see MAR) Intervention: Provide Person-Centered Care Flowsheets (Taken 01/12/2025 0432) Trust Relationship/Rapport: care explained choices provided emotional support provided * Anesthesia PACU Signout - Humza Zimmer MD - 01/11/2025 5:49 PM EDT Patient: Dagoberto Islas Anesthesia Type: general Vitals Value Taken Time BP 124/74 01/11/25 17:45 Temp See flowsheet 01/11/25 17:49 Pulse 103 01/11/25 17:48 Resp 16 01/11/25 17:48 SpO2 95 % 01/11/25 17:48 Vitals shown include unfiled device data. Anesthesia PACU Signout Patient location during evaluation: PACU Patient participation: complete - patient participated Level of consciousness: baseline and awake Pain management: adequate (pain score 0-3) Airway patency: natural airway Hydration status: acceptable PONV: none Cardiovascular status: acceptable and hemodynamically stable Respiratory status: acceptable, spontaneous ventilation, unassisted, nonlabored ventilation and nasal cannula Discharge Disposition: admit to inpatient unit Cosigned by Ed Nails MD at 01/12/2025 7:06 AM EDT Associated attestation - Ed Nails MD - 01/12/2025 7:06 AM EDT Signature only. * Op Note - Sebastian Vasquez MD - 01/11/2025 8:57 AM EDT Operative Note Date: 01/11/25 Location: [facility] Name: Dagoberto Islas, : 1955, Diagnoses: Pre-op Diagnosis Malignant neoplasm of urinary bladder, unspecified site Post-op Diagnosis Malignant neoplasm of urinary bladder, unspecified site Procedure(s): Radical cystectomy with ileal conduit creation Pelvic lymph node dissection Lysis of adhesions >1 hour 22 MODIFIER JUSTIFICATION: This procedure was significantly more difficult than normal due to boweladhesions requiring additional 1 hour of operative time lysing adhesions. Attending Surgeon(s): * Dejuan Hendricks - Primary Machine Guide Base Winder(s): * Sebastian Vasquez MD - Resident - Assisting Anesthesia: General ASA: III Blood Administration: Blood Product Administration History None Estimated Blood Loss: 700 mL Drains: Closed/Suction Drain 1 LUQ (Active) Urostomy RUQ (Active) Urethral Catheter Non-latex 16 Fr. (Active) Implants Type Name Action Serial No. Stent STENT URETERAL DIVERSION FLEXI LT 7FR X 70CM - [id number] - [id number] Implanted [id number] Stent STENT URETERAL DIVERSION FLEXI LT 7FR X 70CM - [id number] - [id number] Implanted [id number] Specimen: Specimens ID Source Frozen? 1 Ureter, Right Yes Description: Right Distal Ureter- Frozen 2 Lymph Node (specify site): No Description: Right Pelvic Lymph Nodes 3 Lymph Node (specify site): No Description: Left Pelvic Lymph Nodes 4 Ureter, Left Yes Description: Left Distal Ureter- Frozen 5 Bladder No Description: Bladder Narrative: INDICATIONS FOR SURGERY: Mr. Islas has a diagnosis of muscle invasive bladder cancer and elects to proceed with radical cystectomy as treatment modality. He understands the choice of urinary diversion and elects to proceed with conduit. OPERATIVE FINDINGS: 1. Abdomen itself showed no evidence of grossly evident metastatic disease. 2. Adhesions throughout entirety of small bowel requiring lysis for >1 hour 2. Radical cystectomy performed without complications. 3. Bilateral pelvic lymph node dissection performed without complications. Nodes grossly normal. 4. Good hemostasis in the pelvis. 5. Rectal wall intact and no breach. 6. Pauline-type vesicourethral anastomosis. 7. Viable, pink stoma. PROCEDURE IN DETAIL: Time out was performed with proper identification and verification of consent for radical cystectomy and urinary diversion. After anesthetic induction, stockings and pneumatic compression boots were placed to the legs and patient was positioned in the supine position. Subcutaneous heparin and antibiotics were administered. The abdomen and genitals were prepped and draped in a sterile fashion. An 18 Fr Trejo catheter was placed sterilely on the operative field with 10 ml of water placed in the balloon. A midline incision starting from the pubic symphysis towards the umbilicus was made witha scalpel and carried down to the fascia. A midline fascial incision was made. The space of Retziuswas entered with careful dissection and bluntly. The peritoneum was entered sharply at the superior level and the urachus was identified, clamped, and divided with LigaSure. A Elizabeth clamp and then 0 vicryl tie placed on the urachus so as to help us with traction on the bladder. The peritoneal cavity was inspected. No gross evidence of metastatic disease to the abdominal viscera was noted. There was significant amount of adhesions noted at this point with small bowel adhesions. We tookthese down sharply to aid in bowel retraction. The Bookwalter retractor was then positioned. Using the urachus as a guide, the lateral peritoneal fold off the medial ligament on the right was taken down. Next, the colon was medially reflected on the right side to expose the common iliac vessels and lower aorta and vena cava. The gonadal vesselswere reflected laterally. The right ureter was identified medially and dissected with minimal cautery use and then encircled with vessel loops. We took the ureter dissection down to just proximal to the inferior vesical artery. We then clipped the ureter proximally and tagged with a monocrly tie for later identification and clamped distally. We cut between the clip and clamp and sent for frozen pathology margin. We then used 0 vicrly tie to close ureter distally to prevent urine spillage. An extended pelvic lymph node dissection was then performed using combination of sharp dissection, electrocautery and clips. The lateral limit of the dissection was the genitofemoral nerve, the distal limit was to node of [place] and the superior limit was the crossing of the ureter and 1-2 cm above this to clear the entire common iliac artery. The common iliac vessels were cleared of any katarina tissue Next, the external iliac artery and vein were circumferentially mobilized and the lateral attachments to the body wall dissected. The tissue bearing the lymph nodes were similarly removed. We next focussed on the obturator fossa and the obturator vessels and nerve were carefully preserved and protected. The obturator fossa was then completely dissected and the lymph node bearing tissue including the obturator nodes was then dissected and handed off the operative field. The hypogastric nodes were also dissected and included in the pelvic node packet. Katarina packet was handed off at this point. We then ligasured down medial to obturator nerve but lateral to medial umbilical ligament and set up our bladder and prostatic pedicles. Ligasured the posterior bladder peritoneum to veto denonvilliers fascia and exposed tip of seminal vesicle. We also bovied through endopelvic fascia to develop appropriate plane distally. We then swept rectum posteriorly and ligasured our pedicles heading towards prostate apex. At this point we switched to our left side. We reflected sigmoid medially and thenperformed the same steps on the left side as the right with similar node dissection as well. Now we focused on apical dissection. We took the superficial vein and dorsal vein with ligasure andtied off our catheter and cut it and bovied down to urethra and pulled catheter through penis. Thiswas used to provide traction out of the pelvis and we slowly came our posterior apex with bovie cautery carefully voiding rectum. Good margins were noted once the entire specimen was removed and sentoff for permanent section. There was no evidence of grossly visible extravesicular disease extension. The pelvis was then copiously irrigated and hemostasis was achieved. We placed a surgicell sheet in the pelvis. We placed a new 16fr trejo catheter via urethra as a pelvic drain. At this point, we directed our attention to the urinary diversion. The left ureter was brought overto the right side underneath the sigmoid colon. We had to take down additional small bowel adhesions at this point to allow for bowel mobilization. We only noted one serosal tear about 1cm in length that was closed with 2 3-0 silk lambert sutures. Once we determined that we had colon and terminal ileum we then went about 15-20cm proximally to healthy bowel segment. The mesentery was cleared off the bowel and the segment was transected free of the remaining small bowel using the REBA stapler. Themesentery was divided using the Ligasure. The remaining bowel was brought back in continuity in a si de-to-side anastomosis fashion using the REBA stapler with a 3-0 silk suture at anastomosis crotch. We made sure the kalyan lines were offset. The segment of isolated bowel was then examined and placed to allow proximity to the ureters. The ureters were anastomosed to the proximal end of the conduit in a Pauline fashion. The ureters were spatulated using cut of the sharp scissors. An opening was then made to match this on the bowel side. After this the anastomosis was completed with interrupted 4-0 monocryl suture over a 7 Wolof banderstent which were brought out of the stoma end of the conduit using a right angle clamp. The stents drained clear urine. The ileal conduit stoma was then matured to the skin site using pre-operatively placed marking as follows. The skin and subcutaneous fat were excised over the previously marked stoma site. The fasciawas incised in cruciate manner. The ileal conduit was brought out through the opening and secured in place in the appropriate anatomic position. The conduit was inspected and did not appear twisted on its mesentery. A tuolumne stoma was then developed using 4 2-0 Vicryl sutures and the remainder of the stoma was matured with interrupted 2-0 Vicryl sutures in between. The stents were secured with silk drain stitches. The pelvis was then reexamined for hemostasis which was confirmed. A Stanislav drain was placed and sutured superiorly. The bowel was carefully examined and confirmed to be well vascularized and without any signs of injury and the anastamoses was confirmed to be patent and viable. The fascia was then closed using #1 PDS in a running fashion starting at each end. The wound was copiously irrigated and subcuticular tissue closed with interrupted Vicryl followed by subcuticular running 4-0 Monocryl suture and Dermabond. A urostomy stoma appliance was applied to the stoma and the stents were draining clear urine. At the conclusion of the case all sponge and instrument counts were correct. The patient tolerated the procedure well with no immediate complications. He was extubated in operating room and transferred to PACU in stable condition. At the conclusion the case all sponge and instrument counts were correct. Complications: None; patient tolerated the procedure well. Submitted by: Sebastian Vasquez MD - 01/11/2025 Cosigned by Dejuan Hendricks MD at 01/12/2025 9:19 PM EDT Associated attestation - Dejuan Hendricks MD - 01/12/2025 9:19 PM EDT I was present for the entirety of the procedure(s). * H&P - Sebastian Vasquez MD - 01/11/2025 6:11 AM EDT Subjective Chief complaint Bladder cancer History Of Present Illness Dagoberto Islas is a 69 y.o. male presenting with MIBC. Plan for radical cystectomy with ileal conduit Medical/Surgical/Social/Family History I have reviewed and updated the patient history. Allergies Morphine Medications Current Medications[1] Objective Review of Systems ROS completed and negative except what is listed in HPI. Physical Exam Vitals and nursing note reviewed. Exam conducted with a irish moss operator present. Constitutional: General: He is not in acute distress. Appearance: Normal appearance. He is normal weight. HENT: Head: Normocephalic and atraumatic. Right Ear: External ear normal. Left Ear: External ear normal. Nose: Nose normal. Mouth/Throat: Mouth: Mucous membranes are moist. Pharynx: Oropharynx is clear. Eyes: General: No scleral icterus. Conjunctiva/sclera: Conjunctivae normal. Cardiovascular: Rate and Rhythm: Normal rate and regular rhythm. Pulses: Normal pulses. Pulmonary: Effort: Pulmonary effort is normal. No respiratory distress. Abdominal: General: There is no distension. Palpations: Abdomen is soft. Tenderness: There is no abdominal tenderness. Musculoskeletal: General: No deformity. Normal range of motion. Cervical back: Normal range of motion and neck supple. Skin: General: Skin is warm. Capillary Refill: Capillary refill takes less than 2 seconds. Findings: No erythema. Neurological: General: No focal deficit present. Mental Status: He is alert and oriented to person, place, and time. Mental status is at baseline. Psychiatric: Mood and Affect: Mood normal. Behavior: Behavior normal. Judgment: Judgment normal. Last Recorded Vitals There were no vitals taken for this visit. Results Review I have reviewed the latest lab and imaging results. Assessment & Plan Bladder cancer (CMS/FORMERLY [facility]) Malignant neoplasm of urinary bladder, unspecified site TO OR for cystectomy with ileal conduit. Consent in media tab. Cefoxitin for abx ppx. DVT ppx with SQH. Entereg [1] Current Facility-Administered Medications Medication Dose Route Frequency Provider Last Rate Last Admin heparin (porcine) injection 5,000 Units 5,000 Units Subcutaneous Once Dejuan Hendricks MD Povidone-Iodine 5 % swab solution 1 Application 1 Application Nasal Once Dejuan Hendricks MD sodium chloride 0.9 % flush 10 mL 10 mL Intravenous q12h Dejuan Hnedricks MD And sodium chloride 0.9 % flush 10 mL 10 mL Intravenous PRN Dejuan Hendricks MD Cosigned by Dejuan Hendricks MD at 01/11/2025 8:33 AM EDT documented in this encounter Plan of Treatment Upcoming Encounters Date Type Department Care Team (Late st Contact Info) Description 02/08/2025 1:30 PM EST Office Visit [facility] [address] [place] [address] Felicita Lindquist, BATCH AND FURNACE MANAGER [address] [place] [id number] 08/04/2025 9:40 AM EDT Appointment [facility] [address] [place] [address] 08/04/2025 12:00 PM EDT Office Visit [facility] [address] [place] [address] Dejuan Hendricks MD [address] [place] [address] 08/04/2025 12:00 PM EDT Clinical Support [facility] [address] [place] [address] Pending Results Name Type Priority Associated Diagnoses Date /Time Prepare Leukocyte Reduced RBC: 2 Units Blood Bank STAT 01/11/2025 9:29 AM EDT Scheduled Referrals Name Type Priority Associated Diagnoses Order Schedule Discharge Ambulatory referral to [facility] Outpatient Referral Routine Bladder tumor 1 Occurrences starting 01/13/2025 until 07/17/2026 documented as of this encounter Goals Goal Patient Goal Type Associated Problems Recent Progress Patient-Stated? Author Autogenerat ed Goal Care Plan Autogenerated Problem No Sabine Houserah documented as of this encounter Procedures Procedure Name Priority Date/Time Associated Diagnosis Comments CBC W/O DIFFERENTIAL Routine 01/15/2025 3:33 AM EDT PHOSPHORUS, PLASMA Routine 01/15/2025 3: 33 AM EDT MAGNESIUM, PLASMA Routine 01/15/2025 3:3 3 AM EDT COMPREHENSIVE METABOLIC PANEL, PLASMA Routine 01/15/2025 3:33 AM EDT CREATININE, DRAIN FLUID Routine 01/14/2025 5:14 PM EDT HEMOGLOBIN AND HEMATOCRIT, BLOOD Routine 01/14/2025 1:21 PM EDT PREPARE RBC Routine 01/14/2025 6:18 AM EDT CBC W/O DIFFERENTIAL Routine 01/14/2025 2:00 AM EDT PHOSPHORUS, PLASMA Routine 01/14/2025 2: 00 AM EDT MAGNESIUM, PLASMA Routine 01/14/2025 2:0 0 AM EDT COMPREHENSIVE METABOLIC PANEL, PLASMA Routine 01/14/2025 2:00 AM EDT CBC W/O DIFFERENTIAL Routine 01/13/2025 4:54 AM EDT PHOSPHORUS, PLASMA Routine 01/13/2025 4: 54 AM EDT MAGNESIUM, PLASMA Routine 01/13/2025 4:5 4 AM EDT COMPREHENSIVE METABOLIC PANEL, PLASMA Routine 01/13/2025 4:54 AM EDT POCT GLUCOSE METER UNSOLICITED RESULTS Routine 01/12/2025 12:25 PM EDT POCT GLUCOSE METER UNSOLICITED RESULTS Routine 01/12/2025 5:18 AM EDT CBC W/O DIFFERENTIAL Routine 01/12/2025 4:52 AM EDT BASIC METABOLIC PANEL, PLASMA Routine 01/12/2025 4:52 AM EDT POCT GLUCOSE METER UNSOLICITED RESULTS Routine 01/12/2025 12:11 AM EDT IONIZED CALCIUM, WHOLE BLOOD Routine 01/11/2025 4:12 PM EDT CBC W/O DIFFERENTIAL Routine 01/11/2025 3:15 PM EDT BASIC METABOLIC PANEL, PLASMA Routine 01/11/2025 3:15 PM EDT WOUND OSTOMY EVAL AND TREAT Routine 01/11/2025 2:51 PM EDT BLOOD GAS PANEL, ARTERIAL STAT 01/11/2025 1:41 PM EDT BLOOD GAS PANEL, ARTERIAL STAT 01/11/2025 11:27 AM EDT SURGICAL PATHOLOGY EXAM Routine 01/11/2025 9:54 AM EDT Malignant neoplasm of urinary bladder, unspecified site PREPARE RBC STAT 01/11/2025 9:29 AM EDT NE CYSTECTOMY,ILEAL CONDUIT/SIGMOID BLADDER 01/11/2025 7:41 AM EDT Malignant neoplasm of urinary bladder, unspecified site TYPE AND SCREEN Routine 01/11/2025 7:40 AM EDT documented in this encounter Results * Phosphorus (01/15/2025 3:33 AM EDT) Phosphorus, Plasma 3.5 2.5 - 4.5 mg/dL 01/15/2025 4:09 AM EDT [facility] Blood Venous blood specimen / Unknown Venipuncture / Unknown 01/15/2025 3:33 AM EDT 01/15/2025 3:40 AM EDT us Dejuan Hendricks MD LAB BLOOD ORDERABLES Final Re sult Performing Organization Address City/[facility]/ZIP Co de Phone Number [facility] [address] [place] [address] * (ABNORMAL) Magnesium (01/15/2025 3:33 AM EDT) Magnesium, Plasma 1.8(L) 1.9 - 2.4 mg/dL 01/15/2025 4:09 AM EDT [facility] Blood Venous blood specimen / Unknown Venipuncture / Unknown 01/15/2025 3:33 AM EDT 01/15/2025 3:40 AM EDT us Dejuan Hendricks MD LAB BLOOD ORDERABLES Final Re sult [facility] [address] [place] [address] * (ABNORMAL) Comprehensive metabolic panel (01/15/2025 3:33 AM EDT) Glucose, Plasma 114(H) 74 - 99 mg/dL 01/15/2025 4:09 AM EDT [facility] BUN, Plasma 12 8 - 23 mg/dL 01/15/2025 4:09 AM EDT [facility] Creatinine, Plasma 0.70 0.70 - 1.20 mg/dL 01/15/2025 4:09 AM EDT [facility] BUN/Creatinine Ratio 17 01/15/2025 4:09 AM EDT [facility] Sodium, Plasma 136 136 - 145 mmol/L 01/15/2025 4:09 AM EDT [facility] Potassium, Plasma 4.2 3.6 - 4.9 mmol/L 01/15/2025 4:09 AM EDT [facility] Chloride, Plasma 99 97 - 107 mmol/L 01/15/2025 4:09 AM EDT [facility] CO2, Plasma 33(H) 22 - 29 mmol/L 01/15/2025 4:09 AM EDT [facility] Anion Gap 4(L) 6 - 16 mmol/L 01/15/2025 4:09 AM EDT [facility] Total Calcium, Plasma 8.7(L) 8.9 - 10.2 mg/dL 01/15/2025 4:09 AM EDT [facility] Total Protein 5.7(L) 6.3 - 7.9 g/dL 01/15/2025 4:09 AM EDT [facility] Albumin, Plasma 2.8(L) 3.5 - 5.2 g/dL 01/15/2025 4:09 AM EDT [facility] AST, Plasma 18 10 - 50 U/L 01/15/2025 4:09 AM EDT [facility] ALT, Plasma 18 10 - 50 U/L 01/15/2025 4:09 AM EDT [facility] Alkaline Phosphatase, Plasma 52 40 - 115 U/L 01/15/2025 4:09 AM EDT [facility] Total Bilirubin, Plasma <0.2(L) 0.2 - 1.1 mg/dL 01/15/2025 4:09 AM EDT [facility] eGFRcr 99.7 mL/min/1.7 3m*2 01/15/2025 4:09 AM EDT [facility] Comment:Reported eGFRcr in m L/min/1.73m2 is based the CKD-EPI 2020 equation that does not use a race coefficient. Blood Venous blood specimen / Unknown Venipuncture / Unknown 01/15/2025 3:33 AM EDT 01/15/2025 3:40 AM EDT us Dejuan Hendricks MD LAB BLOOD ORDERABLES Final Re sult [facility] [address] [place] [address] * (ABNORMAL) CBC W/O Differential (01/15/2025 3:33 AM EDT) WBC Count 9.66 3.70 - 10.30 10*3/uL LAB HEMATOLOGY METHOD 01/15/2025 3:51 AM EDT [facility] RBC Count 2.40(L) 4.60 - 6.10 10*6/uL LAB HEMATOLOGY METHOD 01/15/2025 3:51 AM EDT [facility] HGB 7.5(L) 13.7 - 17.5 g/dL LAB HEMATOLOGY METHOD 01/15/2025 3:51 AM EDT [facility] HCT 22.7(L) 40.0 - 51.0 % LAB HEMATOLOGY METHOD 01/15/2025 3:51 AM EDT [facility] Platelet Count 214 155 - 369 10*3/uL LAB HEMATOLOGY METHOD 01/15/2025 3:51 AM EDT [facility] MCV 95 79 - 98 fL LAB HEMATOLOGY METHOD 01/15/2025 3:51 AM EDT [facility] MCH 31.3 26.0 - 32.0 pg LAB HEMATOLOGY METHOD 01/15/2025 3:51 AM EDT [facility] MCHC 33.0 30.7 - 35.5 g/dL LAB HEMATOLOGY METHOD 01/15/2025 3:51 AM EDT [facility] RDW 15.8(H) 11.5 - 14.5 % LAB HEMATOLOGY METHOD 01/15/2025 3:51 AM EDT [facility] MPV 9.7 8.8 - 12.5 fL LAB HEMATOLOGY METHOD 01/15/2025 3:51 AM EDT [facility] nRBC 0.2(H) <=0.0 per 100 WBCs LAB HEMATOLOGY METHOD 01/15/2025 3:51 AM EDT [facility] Blood Venous blood specimen / Unknown Venipuncture / Unknown 01/15/2025 3:33 AM EDT 01/15/2025 3:40 AM EDT Dejuan Hendricks MD LAB BLOOD ORDERABLES Final Re sult Performing Organization Address [facility] Co de Phone Number [facility] [address] [place] [address] * Creatinine, Drain Fluid (01/14/2025 5:14 PM EDT) Creatinine, Fluid 0.70 mg/dL 01/14/2025 7:38 PM EDT [facility] Fluid Drainage fluid specimen / Unknown 01/14/2025 5:14 PM EDT 01/14/2025 6:18 PM EDT Narrative [facility] - 01/14/2025 7:38 PM EDT Reference Values: No established reference interval. Results should be interpreted in comparison to the concentration in blood and in conjunction with the clinical context. This test was developed and its performance characteristics determined by [facility]. The U.S. Food and Drug Administration has not approved or cleared this test; however, FDA clearance or approval is not currently required for clinical use. The results are not intended to be used as the sole means for clinical diagnosis or patient management decisions. Interpretation: A body fluid to plasma ratio >1.0 suggests the presence of urine in the sample. us Dejuan Hendricks MD LAB BODY FLUIDS AND STOOLS OR DERABLES Final Result Performing Organization Address [facility] Co de Phone Number [facility] [address] [place] [address] * (ABNORMAL) Hemoglobin and Hematocrit, Blood (01/14/2025 1:21 PM EDT) HGB 9.1(L) 13.7 - 17.5 g/dL LAB HEMATOLOGY METHOD 01/14/2025 1:58 PM EDT [facility] HCT 28.3(L) 40.0 - 51.0 % LAB HEMATOLOGY METHOD 01/14/2025 1:58 PM EDT [facility] Blood Venous blood specimen / Unknown Venipuncture / Unknown 01/14/2025 1:21 PM EDT 01/14/2025 1:45 PM EDT us Dejuan Hendricks MD LAB BLOOD ORDERABLES Final Re sult [facility] [address] [place] [address] * Prepare Leukocyte Reduced RBC: 1 Units (01/14/2025 6:18 AM EDT) Product Code [id number] CH BLOO D BANK Dispense Status Transfused BLOOD BANK Blood Expiration Date [id number] BLOOD BANK Unit Number [id number] CH B LOOD BANK Product Blood Type 5100 BLOOD BANK Blood Type O+ BLOOD BANK Crossmatch Compatible BLOOD BANK Other us Dejuan Hendricks MD BLOOD BANK PRODUCT ORDERABLES Final Result Performing Organization Address City/[facility]/ZIP Co de Phone Number BLOOD BANK [address] [place] [address], * Phosphorus (01/14/2025 2:00 AM EDT) Phosphorus, Plasma 2.6 2.5 - 4.5 mg/dL 01/14/2025 2:34 AM EDT [facility] Blood Venous blood specimen / Unknown Venipuncture / Unknown 01/14/2025 2:00 AM EDT 01/14/2025 2:05 AM EDT us Dejuan Hendricks MD LAB BLOOD ORDERABLES Final Re sult Performing Organization Address City/[facility]/ZIP Co de Phone Number [facility] [address] [place] [address] * (ABNORMAL) Magnesium (01/14/2025 2:00 AM EDT) Pathologist [facility] Magnesium, Plasma 1.5(L) 1.9 - 2.4 mg/dL 01/14/2025 2:34 AM EDT [facility] Blood Venous blood specimen / Unknown Venipuncture / Unknown 01/14/2025 2:00 AM EDT 01/14/2025 2:05 AM EDT Dejuan Hendricks MD LAB BLOOD ORDERABLES Final Re sult Performing Organization Address [facility]/ZIP Co de Phone Number [facility] [address] [place] [address] * (ABNORMAL) Comprehensive metabolic panel (01/14/2025 2:00 AM EDT) Glucose, Plasma 109(H) 74 - 99 mg/dL 01/14/2025 2:34 AM EDT [facility] BUN, Plasma 11 8 - 23 mg/dL 01/14/2025 2:34 AM EDT [facility] Creatinine, Plasma 0.64(L) 0.70 - 1.20 mg/dL 01/14/2025 2:34 AM EDT [facility] BUN/Creatinine Ratio 17 01/14/2025 2:34 AM EDT [facility] Sodium, Plasma 139 136 - 145 mmol/L 01/14/2025 2:34 AM EDT [facility] Potassium, Plasma 3.8 3.6 - 4.9 mmol/L 01/14/2025 2:34 AM EDT [facility] Chloride, Plasma 104 97 - 107 mmol/L 01/14/2025 2:34 AM EDT [facility] CO2, Plasma 31(H) 22 - 29 mmol/L 01/14/2025 2:34 AM EDT [facility] Anion Gap 4(L) 6 - 16 mmol/L 01/14/2025 2:34 AM EDT [facility] Total Calcium, Plasma 8.1(L) 8.9 - 10.2 mg/dL 01/14/2025 2:34 AM EDT [facility] Total Protein 5.1(L) 6.3 - 7.9 g/dL 01/14/2025 2:34 AM EDT [facility] Albumin, Plasma 2.7(L) 3.5 - 5.2 g/dL 01/14/2025 2:34 AM EDT [facility] AST, Plasma 20 10 - 50 U/L 01/14/2025 2:34 AM EDT [facility] ALT, Plasma 19 10 - 50 U/L 01/14/2025 2:34 AM EDT [facility] Alkaline Phosphatase, Plasma 49 40 - 115 U/L 01/14/2025 2:34 AM EDT [facility] Total Bilirubin, Plasma <0.2(L) 0.2 - 1.1 mg/dL 01/14/2025 2:34 AM EDT [facility] eGFRcr 102.5 mL/min/1.7 3m*2 01/14/2025 2:34 AM EDT [facility] Comment:Reported eGFRcr in m L/min/1.73m2 is based the CKD-EPI 2020 equation that does not use a race coefficient. Blood Venous blood specimen / Unknown Venipuncture / Unknown 01/14/2025 2:00 AM EDT 01/14/2025 2:05 AM EDT Dejuan Hendricks MD LAB BLOOD ORDERABLES Final Re sult [facility] [address] [place] [address] * (ABNORMAL) CBC W/O Differential (01/14/2025 2:00 AM EDT) WBC Count 8.24 3.70 - 10.30 10*3/uL LAB HEMATOLOGY METHOD 01/14/2025 2:18 AM EDT [facility] RBC Count 2.02(L) 4.60 - 6.10 10*6/uL LAB HEMATOLOGY METHOD 01/14/2025 2:18 AM EDT [facility] HGB 6.4(LL) 13.7 - 17.5 g/dL LAB HEMATOLOGY METHOD 01/14/2025 2:18 AM EDT [facility] HCT 19.8(L) 40.0 - 51.0 % LAB HEMATOLOGY METHOD 01/14/2025 2:18 AM EDT [facility] Platelet Count 140(L) 155 - 369 10*3/uL LAB HEMATOLOGY METHOD 01/14/2025 2:18 AM EDT [facility] MCV 98 79 - 98 fL LAB HEMATOLOGY METHOD 01/14/2025 2:18 AM EDT [facility] MCH 31.7 26.0 - 32.0 pg LAB HEMATOLOGY METHOD 01/14/2025 2:18 AM EDT [facility] MCHC 32.3 30.7 - 35.5 g/dL LAB HEMATOLOGY METHOD 01/14/2025 2:18 AM EDT [facility] RDW 14.7(H) 11.5 - 14.5 % LAB HEMATOLOGY METHOD 01/14/2025 2:18 AM EDT [facility] MPV 9.4 8.8 - 12.5 fL LAB HEMATOLOGY METHOD 01/14/2025 2:18 AM EDT [facility] nRBC 0.0 <=0.0 per 100 WBCs LAB HEMATOLOGY METHOD 01/14/2025 2:18 AM EDT [facility] Blood Venous blood specimen / Unknown Venipuncture / Unknown 01/14/2025 2:00 AM EDT 01/14/2025 2:05 AM EDT Dejuan Hendricks MD LAB BLOOD ORDERABLES Final Re sult [facility] [address] [place] [address] * (ABNORMAL) Phosphorus (01/13/2025 4:54 AM EDT) Phosphorus, Plasma 2.2(L) 2.5 - 4.5 mg/dL 01/13/2025 5:30 AM EDT [facility] Blood Venous blood specimen / Unknown Venipuncture / Unknown 01/13/2025 4:54 AM EDT 01/13/2025 5:01 AM EDT us Dejuan Hendricks MD LAB BLOOD ORDERABLES Final Re sult Performing Organization Address City/[facility]/ZIP Co de Phone Number [facility] [address] [place] [address] * Magnesium (01/13/2025 4:54 AM EDT) Magnesium, Plasma 1.9 1.9 - 2.4 mg/dL 01/13/2025 5:30 AM EDT [facility] Blood Venous blood specimen / Unknown Venipuncture / Unknown 01/13/2025 4:54 AM EDT 01/13/2025 5:01 AM EDT us Dejuan Hendricks MD LAB BLOOD ORDERABLES Final Re sult Performing Organization Address [facility]/ZIP Co de Phone Number [facility] [address] [place] [address] * (ABNORMAL) Comprehensive metabolic panel (01/13/2025 4:54 AM EDT) Glucose, Plasma 98 74 - 99 mg/dL 01/13/2025 5:30 AM EDT [facility] BUN, Plasma 14 8 - 23 mg/dL 01/13/2025 5:30 AM EDT [facility] Creatinine, Plasma 0.73 0.70 - 1.20 mg/dL 01/13/2025 5:30 AM EDT [facility] BUN/Creatinine Ratio 19 01/13/2025 5:30 AM EDT [facility] Sodium, Plasma 138 136 - 145 mmol/L 01/13/2025 5:30 AM EDT [facility] Potassium, Plasma 4.7 3.6 - 4.9 mmol/L 01/13/2025 5:30 AM EDT [facility] Chloride, Plasma 104 97 - 107 mmol/L 01/13/2025 5:30 AM EDT [facility] CO2, Plasma 32(H) 22 - 29 mmol/L 01/13/2025 5:30 AM EDT [facility] Anion Gap 2(L) 6 - 16 mmol/L 01/13/2025 5:30 AM EDT [facility] Total Calcium, Plasma 8.4(L) 8.9 - 10.2 mg/dL 01/13/2025 5:30 AM EDT [facility] Total Protein 5.4(L) 6.3 - 7.9 g/dL 01/13/2025 5:30 AM EDT [facility] Albumin, Plasma 2.9(L) 3.5 - 5.2 g/dL 01/13/2025 5:30 AM EDT [facility] AST, Plasma 30 10 - 50 U/L 01/13/2025 5:30 AM EDT [facility] ALT, Plasma 29 10 - 50 U/L 01/13/2025 5:30 AM EDT [facility] Alkaline Phosphatase, Plasma 45 40 - 115 U/L 01/13/2025 5:30 AM EDT [facility] Total Bilirubin, Plasma 0.2 0.2 - 1.1 mg/dL 01/13/2025 5:30 AM EDT [facility] eGFRcr 98.5 mL/min/1.7 3m*2 01/13/2025 5:30 AM EDT [facility] Comment:Reported eGFRcr in m L/min/1.73m2 is based the CKD-EPI 2020 equation that does not use a race coefficient. Blood Venous blood specimen / Unknown Venipuncture / Unknown 01/13/2025 4:54 AM EDT 01/13/2025 5:01 AM EDT us Dejuan Hendricks MD LAB BLOOD ORDERABLES Final Re sult [facility] [address] [place] [address] * (ABNORMAL) CBC W/O Differential (01/13/2025 4:54 AM EDT) WBC Count 8.00 3.70 - 10.30 10*3/uL LAB HEMATOLOGY METHOD 01/13/2025 5:14 AM EDT [facility] RBC Count 2.26(L) 4.60 - 6.10 10*6/uL LAB HEMATOLOGY METHOD 01/13/2025 5:14 AM EDT [facility] HGB 7.2(L) 13.7 - 17.5 g/dL LAB HEMATOLOGY METHOD 01/13/2025 5:14 AM EDT [facility] HCT 22.3(L) 40.0 - 51.0 % LAB HEMATOLOGY METHOD 01/13/2025 5:14 AM EDT [facility] Platelet Count 147(L) 155 - 369 10*3/uL LAB HEMATOLOGY METHOD 01/13/2025 5:14 AM EDT [facility] MCV 99(H) 79 - 98 fL LAB HEMATOLOGY METHOD 01/13/2025 5:14 AM EDT [facility] MCH 31.9 26.0 - 32.0 pg LAB HEMATOLOGY METHOD 01/13/2025 5:14 AM EDT [facility] MCHC 32.3 30.7 - 35.5 g/dL LAB HEMATOLOGY METHOD 01/13/2025 5:14 AM EDT [facility] RDW 15.1(H) 11.5 - 14.5 % LAB HEMATOLOGY METHOD 01/13/2025 5:14 AM EDT [facility] MPV 9.8 8.8 - 12.5 fL LAB HEMATOLOGY METHOD 01/13/2025 5:14 AM EDT [facility] nRBC 0.0 <=0.0 per 100 WBCs LAB HEMATOLOGY METHOD 01/13/2025 5:14 AM EDT [facility] Blood Venous blood specimen / Unknown Venipuncture / Unknown 01/13/2025 4:54 AM EDT 01/13/2025 5:01 AM EDT us Dejuan Hendricks MD LAB BLOOD ORDERABLES Final Re sult [facility] [address] [place] [address] * (ABNORMAL) POCT glucose meter (01/12/2025 12:25 PM EDT) Pathologist [facility] POCT Glucose 114(H) 74 - 99 mg/dL 01/12/2025 12:26 PM EDT [facility] Comment:Accuracy of a glucos e result obtained from a capillary whole blood specimen relies upon adequate, non-compromised capillary blood flow. If the capillary glucose result is not consistent with the patient's clinical signs and symptoms, glucose testing should be repeated with either an arterial or venous sample on the glucometer or sent to the main labortory for testing. Comment 01/12/2025 12:26 PM EDT [facility] Tube Puller ID Lanette Mercedes 01/12/2025 12:26 PM EDT [facility] Device ID [id number] 01/12/2025 12:26 PM EDT [facility] Specimen Type POC Capillary 01/12/2025 12:26 PM EDT [facility] Blood Capillary blood specimen / Unknown 01/12/2025 12:25 PM EDT 01/12/2025 12:26 PM EDT us Dejuan Hendricks MD LAB POINT OF CARE TE ST DOCKED DEVICE UNSOLICITED RESULTS Final Result Performing Organization Address City/State/[facility] Co de Phone Number [facility] [address] [place] [address] * (ABNORMAL) POCT glucose meter (01/12/2025 5:18 AM EDT) POCT Glucose 127(H) 74 - 99 mg/dL 01/12/2025 5:20 AM EDT [facility] Comment:Accuracy of a glucos e result obtained from a capillary whole blood specimen relies upon adequate, non-compromised capillary blood flow. If the capillary glucose result is not consistent with the patient's clinical signs and symptoms, glucose testing should be repeated with either an arterial or venous sample on the glucometer or sent to the main labortory for testing. Comment 01/12/2025 5:20 AM EDT [facility] Tube Puller ID Ivelisse Desai 025 5:20 AM EDT [facility] Device ID [id number] 01/12/2025 5:20 AM EDT [facility] Specimen Type POC Capillary 01/12/2025 5:20 AM EDT [facility] Blood Capillary blood specimen / Unknown 01/12/2025 5:18 AM EDT 01/12/2025 5:20 AM EDT us eDjuan Hendricks MD LAB POINT OF CARE TE ST DOCKED DEVICE UNSOLICITED RESULTS Final Result [facility] [address] [place] [id number] * (ABNORMAL) Basic Metabolic Panel, Plasma (01/12/2025 4:52 AM EDT) Glucose, Plasma 120(H) 74 - 99 mg/dL 01/12/2025 5:44 AM EDT [facility] BUN, Plasma 22 8 - 23 mg/dL 01/12/2025 5:44 AM EDT [facility] Creatinine, Plasma 0.92 0.70 - 1.20 mg/dL 01/12/2025 5:44 AM EDT [facility] BUN/Creatinine Ratio 24 01/12/2025 5:44 AM EDT [facility] Sodium, Plasma 136 136 - 145 mmol/L 01/12/2025 5:44 AM EDT [facility] Potassium, Plasma 6.2(H) 3.6 - 4.9 mmol/L 01/12/2025 5:44 AM EDT [facility] Chloride, Plasma 105 97 - 107 mmol/L 01/12/2025 5:44 AM EDT [facility] CO2, Plasma 25 22 - 29 mmol/L 01/12/2025 5:44 AM EDT [facility] Anion Gap 6 6 - 16 mmol/L 01/12/2025 5:44 AM EDT [facility] Total Calcium, Plasma 8.2(L) 8.9 - 10.2 mg/dL 01/12/2025 5:44 AM EDT [facility] eGFRcr 90.0 mL/min/1.7 3m*2 01/12/2025 5:44 AM EDT [facility] Comment:Reported eGFRcr in m L/min/1.73m2 is based the CKD-EPI 2020 equation that does not use a race coefficient. Blood Venous blood specimen / Unknown Venipuncture / Unknown 01/12/2025 4:52 AM EDT 01/12/2025 5:10 AM EDT Dejuan Hendricks MD LAB BLOOD ORDERABLES Final Re sult [facility] [address] [place] [address] * (ABNORMAL) CBC W/O Differential (01/12/2025 4:52 AM EDT) WBC Count 8.75 3.70 - 10.30 10*3/uL LAB HEMATOLOGY METHOD 01/12/2025 5:23 AM EDT [facility] RBC Count 2.75(L) 4.60 - 6.10 10*6/uL LAB HEMATOLOGY METHOD 01/12/2025 5:23 AM EDT [facility] HGB 8.6(L) 13.7 - 17.5 g/dL LAB HEMATOLOGY METHOD 01/12/2025 5:23 AM EDT [facility] HCT 26.8(L) 40.0 - 51.0 % LAB HEMATOLOGY METHOD 01/12/2025 5:23 AM EDT [facility] Platelet Count 179 155 - 369 10*3/uL LAB HEMATOLOGY METHOD 01/12/2025 5:23 AM EDT [facility] MCV 98 79 - 98 fL LAB HEMATOLOGY METHOD 01/12/2025 5:23 AM EDT [facility] MCH 31.3 26.0 - 32.0 pg LAB HEMATOLOGY METHOD 01/12/2025 5:23 AM EDT [facility] MCHC 32.1 30.7 - 35.5 g/dL LAB HEMATOLOGY METHOD 01/12/2025 5:23 AM EDT [facility] RDW 15.0(H) 11.5 - 14.5 % LAB HEMATOLOGY METHOD 01/12/2025 5:23 AM EDT [facility] MPV 9.7 8.8 - 12.5 fL LAB HEMATOLOGY METHOD 01/12/2025 5:23 AM EDT [facility] nRBC 0.0 <=0.0 per 100 WBCs LAB HEMATOLOGY METHOD 01/12/2025 5:23 AM EDT [facility] Blood Venous blood specimen / Unknown Venipuncture / Unknown 01/12/2025 4:52 AM EDT 01/12/2025 5:15 AM EDT us Dejuan Hendricks MD LAB BLOOD ORDERABLES Final Re sult [facility] [address] [place] [address] * (ABNORMAL) POCT glucose meter (01/12/2025 12:11 AM EDT) POCT Glucose 129(H) 74 - 99 mg/dL 01/12/2025 12:12 AM EDT [facility] Comment:Accuracy of a glucos e result obtained from a capillary whole blood specimen relies upon adequate, non-compromised capillary blood flow. If the capillary glucose result is not consistent with the patient's clinical signs and symptoms, glucose testing should be repeated with either an arterial or venous sample on the glucometer or sent to the main labortory for testing. Comment 01/12/2025 12:12 AM EDT [facility] Tube Puller ID Ivelisse Desai 025 12:12 AM EDT [facility] Device ID [id number] 01/12/2025 12:12 AM EDT [facility] Specimen Type POC Capillary 01/12/2025 12:12 AM EDT [facility] Blood Capillary blood specimen / Unknown 01/12/2025 12:11 AM EDT 01/12/2025 12:12 AM EDT us Dejuan Hendricks MD LAB POINT OF CARE TE ST DOCKED DEVICE UNSOLICITED RESULTS Final Result Performing Organization Address City/[facility]/ZIP Co de Phone Number [facility] [address] [place] [address] * (ABNORMAL) Ionized calcium, whole blood (01/11/2025 4:12 PM EDT) Pathologist [facility] Ionized Calcium, Whole Blood 4.5(L) 4.6 - 5.1 mg/dL LAB HEMATOLOGY METHOD 01/11/2025 4:37 PM EDT [facility] Blood Arterial blood specimen / Unknown Venipuncture / Unknown 01/11/2025 4:12 PM EDT 01/11/2025 4:34 PM EDT us Dejuan Hendricks MD LAB BLOOD ORDERABLES Final Re sult [facility] [address] [place] [address] * (ABNORMAL) Basic metabolic panel (01/11/2025 3:15 PM EDT) Glucose, Plasma 117(H) 74 - 99 mg/dL 01/11/2025 3:55 PM EDT [facility] BUN, Plasma 13 8 - 23 mg/dL 01/11/2025 3:55 PM EDT [facility] Creatinine, Plasma 0.60(L) 0.70 - 1.20 mg/dL 01/11/2025 3:55 PM EDT [facility] BUN/Creatinine Ratio 22 01/11/2025 3:55 PM EDT [facility] Sodium, Plasma 145 136 - 145 mmol/L 01/11/2025 3:55 PM EDT [facility] Potassium, Plasma 3.1(L) 3.6 - 4.9 mmol/L 01/11/2025 3:55 PM EDT [facility] Chloride, Plasma 120(H) 97 - 107 mmol/L 01/11/2025 3:55 PM EDT [facility] CO2, Plasma 18(L) 22 - 29 mmol/L 01/11/2025 3:55 PM EDT [facility] Anion Gap 7 6 - 16 mmol/L 01/11/2025 3:55 PM EDT [facility] Total Calcium, Plasma 5.0(LL) 8.9 - 10.2 mg/dL 01/11/2025 3:55 PM EDT [facility] eGFRcr 104.5 mL/min/1.7 3m*2 01/11/2025 3:55 PM EDT [facility] Comment:Reported eGFRcr in m L/min/1.73m2 is based the CKD-EPI 2020 equation that does not use a race coefficient. Blood Venous blood specimen / Unknown Venipuncture / Unknown 01/11/2025 3:15 PM EDT 01/11/2025 3:22 PM EDT Dejuan Hendricks MD LAB BLOOD ORDERABLES Final Re sult [facility] [address] [place] [address] * (ABNORMAL) CBC W/O Differential (01/11/2025 3:15 PM EDT) WBC Count 8.38 3.70 - 10.30 10*3/uL LAB HEMATOLOGY METHOD 01/11/2025 3:28 PM EDT [facility] RBC Count 3.40(L) 4.60 - 6.10 10*6/uL LAB HEMATOLOGY METHOD 01/11/2025 3:28 PM EDT [facility] HGB 10.5(L) 13.7 - 17.5 g/dL LAB HEMATOLOGY METHOD 01/11/2025 3:28 PM EDT [facility] HCT 33.0(L) 40.0 - 51.0 % LAB HEMATOLOGY METHOD 01/11/2025 3:28 PM EDT [facility] Platelet Count 191 155 - 369 10*3/uL LAB HEMATOLOGY METHOD 01/11/2025 3:28 PM EDT [facility] MCV 97 79 - 98 fL LAB HEMATOLOGY METHOD 01/11/2025 3:28 PM EDT [facility] MCH 30.9 26.0 - 32.0 pg LAB HEMATOLOGY METHOD 01/11/2025 3:28 PM EDT [facility] MCHC 31.8 30.7 - 35.5 g/dL LAB HEMATOLOGY METHOD 01/11/2025 3:28 PM EDT [facility] RDW 15.1(H) 11.5 - 14.5 % LAB HEMATOLOGY METHOD 01/11/2025 3:28 PM EDT [facility] MPV 9.0 8.8 - 12.5 fL LAB HEMATOLOGY METHOD 01/11/2025 3:28 PM EDT [facility] nRBC 0.0 <=0.0 per 100 WBCs LAB HEMATOLOGY METHOD 01/11/2025 3:28 PM EDT [facility] Blood Venous blood specimen / Unknown Venipuncture / Unknown 01/11/2025 3:15 PM EDT 01/11/2025 3:21 PM EDT us Dejuan Hendricks MD LAB BLOOD ORDERABLES Final Re sult [facility] [address] [place] [address] * (ABNORMAL) Blood gas panel, arterial (01/11/2025 1:41 PM EDT) pH, Arterial 7.33 7.31 - 7.42 LAB HEMATOLOGY METHOD 01/11/2025 1:41 PM EDT [facility] pCO2, Arterial 50(H) 32 - 45 mmHg LAB HEMATOLOGY METHOD 01/11/2025 1:41 PM EDT [facility] pO2, Arterial 228 >80 mmHg LAB HEMATOLOGY METHOD 01/11/2025 1:41 PM EDT [facility] SO2, Measured, Arterial 100(H) 94 - 98 % LAB HEMATOLOGY METHOD 01/11/2025 1:41 PM EDT [facility] Base Excess, Arterial -0.2 -2.0 - 3.0 mmol/L LAB HEMATOLOGY METHOD 01/11/2025 1:41 PM EDT [facility] Bicarbonate, Calculated, Arterial 26 22 - 26 mmol/L LAB HEMATOLOGY METHOD 01/11/2025 1:41 PM EDT [facility] Hematocrit, Whole Blood 33.0(L) 40.0 - 51.0 % LAB HEMATOLOGY METHOD 01/11/2025 1:41 PM EDT [facility] Sodium, Whole Blood 140 136 - 145 mmol/L LAB HEMATOLOGY METHOD 01/11/2025 1:41 PM EDT [facility] Potassium, Whole Blood 4.5 3.6 - 4.9 mmol/L LAB HEMATOLOGY METHOD 01/11/2025 1:41 PM EDT [facility] Chloride, Whole Blood 106 97 - 107 mmol/L LAB HEMATOLOGY METHOD 01/11/2025 1:41 PM EDT [facility] Glucose, Whole Blood 131(H) 74 - 99 mg/dL LAB HEMATOLOGY METHOD 01/11/2025 1:41 PM EDT [facility] Ionized Calcium, Whole Blood 4.5(L) 4.6 - 5.1 mg/dL LAB HEMATOLOGY METHOD 01/11/2025 1:41 PM EDT [facility] Lactate, Arterial, Whole Blood 2.2(H) 0.5 - 1.6 mmol/L LAB HEMATOLOGY METHOD 01/11/2025 1:41 PM EDT [facility] Blood Arterial blood specimen / Unknown 01/11/2025 1:39 PM EDT us Geremias Salena Caballero [employer] LAB BLOOD ORDERABLES Final Result [facility] [address] [place] [address] * (ABNORMAL) Blood gas panel, arterial (01/11/2025 11:27 AM EDT) pH, Arterial 7.35 7.31 - 7.42 LAB HEMATOLOGY METHOD 01/11/2025 11:27 AM EDT [facility] pCO2, Arterial 51(H) 32 - 45 mmHg LAB HEMATOLOGY METHOD 01/11/2025 11:27 AM EDT [facility] pO2, Arterial 221 >80 mmHg LAB HEMATOLOGY METHOD 01/11/2025 11:27 AM EDT [facility] SO2, Measured, Arterial 100(H) 94 - 98 % LAB HEMATOLOGY METHOD 01/11/2025 11:27 AM EDT [facility] Base Excess, Arterial 1.4 -2.0 - 3.0 mmol/L LAB HEMATOLOGY METHOD 01/11/2025 11:27 AM EDT [facility] Bicarbonate, Calculated, Arterial 28(H) 22 - 26 mmol/L LAB HEMATOLOGY METHOD 01/11/2025 11:27 AM EDT [facility] Hematocrit, Whole Blood 33.0(L) 40.0 - 51.0 % LAB HEMATOLOGY METHOD 01/11/2025 11:27 AM EDT [facility] Sodium, Whole Blood 141 136 - 145 mmol/L LAB HEMATOLOGY METHOD 01/11/2025 11:27 AM EDT [facility] Potassium, Whole Blood 4.2 3.6 - 4.9 mmol/L LAB HEMATOLOGY METHOD 01/11/2025 11:27 AM EDT [facility] Chloride, Whole Blood 105 97 - 107 mmol/L LAB HEMATOLOGY METHOD 01/11/2025 11:27 AM EDT [facility] Glucose, Whole Blood 112(H) 74 - 99 mg/dL LAB HEMATOLOGY METHOD 01/11/2025 11:27 AM EDT [facility] Ionized Calcium, Whole Blood 4.7 4.6 - 5.1 mg/dL LAB HEMATOLOGY METHOD 01/11/2025 11:27 AM EDT [facility] Lactate, Arterial, Whole Blood 2.0(H) 0.5 - 1.6 mmol/L LAB HEMATOLOGY METHOD 01/11/2025 11:27 AM EDT [facility] Blood Arterial blood specimen / Unknown 01/11/2025 11:24 AM EDT us Geremias Martino Caballero [facility] BLOOD ORDERABLES Final Result [facility] [address] [place] [address] * Surgical Pathology Exam (01/11/2025 9:54 AM EDT) Case Report Surgical Pathology Case: [id number] Authorizing Provider: Dejuan Hendricks MD Collected: 01/11/2025 0954 [facility] Received: 01/11/2025 1000 Pathologist: Rosalind Neff MD Intraop: Sarthak Mendez MD Specimens: A) - Ureter, Right, Right Distal Ureter- Frozen B) - Ureter, Left, Left Distal Ureter- Frozen C) - Lymph Node (specify site):, Right Pelvic Lymph Nodes D) - Lymph Node (specify site):, Left Pelvic Lymph Nodes E) - Bladder 4:42 PM EST [facility] Addendum This addendum is to document the provided clinical history. There is no change in the final diagnosis. Malignant neoplasm of urinary bladder 4:42 PM EST [facility] Addendum electronically signed by Rochelle Marmolejo MD on 01/19/2025 at 1642 EST Final Diagnosis A. RIGHT DISTAL URETER MARGIN (FROZEN): - NEGATIVE FOR MALIGNANCY. B. LEFT DISTAL URETER MARGIN (FROZEN): - NEGATIVE FOR MALIGNANCY. C. RIGHT PELVIC LYMPH NODES, DISSECTION: - FIVE LYMPH NODES NEGATIVE FOR MALIGNANCY (0/5). D. LEFT PELVIC LYMPH NODES, DISSECTION: - NINE LYMPH NODES NEGATIVE FOR MALIGNANCY (0/9). E. 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 - INCIDENTAL ACINAR ADENOCARCINOMA, PROSTATE, GRADE GROUP 1 (JENNIFER SCORE 3 + 3 = 6), INVOLVING < 5% OF PROSTATE, pT2, pN0. - MARGINS ARE NEGATIVE FOR TUMOR. - SEE SYNOPTIC CHECKLIST. 5 4:42 PM [facility] at 1214 EDT Comment:This is an appended report. These results have been appended to a previously preliminary verified report. Synoptic Checklist PROSTATE GLAND: Radical Prostatectomy PROSTATE GLAND: RADICAL PROSTATECTOMY - All Specimens 8th Edition - Protocol posted: 12/05/2022 SPECIMEN Procedure: RADICAL CYSTAPROSTATECTOMY Prostate Size: Prostate Greatest Dimension (Centimeters): 3.4 cm Additional Prostate Dimension (Centimeters): 3.0 cm Additional Prostate Dimension (Centimeters): 1.5 cm TUMOR Histologic Type: Acinar adenocarcinoma, conventional (usual) Histologic Grade: Grade: Grade group 1 ([place] Score 3 + 3 = 6) Intraductal Carcinoma (IDC): Not identified Treatment Effect: No known presurgical therapy TUMOR QUANTITATION: Estimated Percentage of Prostate Involved by Tumor: 1 - 5% Extraprostatic Extension (EPE): Not identified Urinary Bladder Neck Invasion: Not identified Seminal Vesicle Invasion: Not identified Lymphatic and / or Vascular Invasion: Not Identified MARGINS Margin Status: All margins negative for invasive carcinoma REGIONAL LYMPH NODES Regional Lymph Node Status: : All regional lymph nodes negative for tumor Number of Lymph Nodes Examined: 14 pTNM CLASSIFICATION (AJCC 8th Edition) Reporting of pT, pN, and (when applicable) pM categories is based on information available to the pathologist at the time the report is issued. As per the AJCC (Chapter 1, 8th Ed.) it is the managing physician's responsibility to establish the final pathologic stage based upon all pertinent information, including but potentially not limited to this pathology report. pT Category: pT2 pN Category: pN not assigned (no nodes submitted or found) 5 4:42 PM [facility] Clinical Information No Dx Found. 5 4:42 PM [facility] Comment:This is an appended report. These results have been appended to a previously preliminary verified report. Intraoperative Consultation A. RIGHT DISTAL URETER- FROZEN Negative for malignancy. B. LEFT DISTAL URETER- FROZEN NEGATIVE FOR CARCINOMA 4:42 PM [facility] Comment:Corrected result: Pr eviously reported as [Previous value contains rich text formatting which cannot be displayed here] (see Result History) on 01/11/2025 at 1023 EDT. Gross Description A. RIGHT DISTAL URETER- FROZEN Specimen received fresh for intraoperative consultation labeled r ight distal ureter is a 0.8 x 0.7 x 0.5 cm raya-red portion of unoriented soft tissue. Remnant submitted in A1. Cold Time: 1h 42m Cherry Drake B. LEFT DISTAL URETER- FROZEN Specimen received fresh for intraoperative consultation labeled l eft distal ureter is a 1.1 x 0.6 x 0.3 cm raya-red unoriented portion of soft tissue. Remnant submitted in B1. Cold Time: 55m Cherry Drake C. RIGHT PELVIC LYMPH NODES Specimen received in formalin labeled r ight pelvic lymph nodes is a 5.8 x 5.0 x 1.7 cm aggregate of raya-yellow lobulated soft tissue. It is palpated to reveal multiple lymph nodes ranging from 0.7-0.8 cm in greatest dimension. [employer]sembl[employer] sections are submitted as follows: C1 3 lymph nodes, intact C2 1 lymph node, serially sectioned C3-C4 1 lymph node, serially sectioned C5-C8 1 lymph node, serially sectioned Cold Time: <1m Cherry Drake D. LEFT PELVIC LYMPH NODES Specimen received fresh and placed formalin labeled l eft pelvic lymph nodes is a 6.5 x 5.6 x 2.1 cm aggregate of raya-yellow and lobulated soft tissue. It is palpated to reveal multiple lymph nodes ranging from 0.7-3.0 cm in greatest dimension. Assembler [employer] sections are submitted as follows: D1 3 lymph nodes, intact D2 1 lymph node, serially sectioned D3 1 lymph node, serially sectioned D4 1 lymph node, serially sectioned D5 1 lymph node, serially sectioned D6-D8 1 lymph node, serially sectioned Cold Time: <1m Cherry Drake E. BLADDER Specimen received fresh and placed in formalin labeled b ladder is a cystoprostatectomy specimen with bladder measuring 7.9 x 7.5 x 3.6 cm, prostate measuring 3.4 cm from apex to base by 3.0 cm from [id number] by 1.5 cm from anterior to posterior, right seminal vesicle measuring 2.2 x 0.9 x 0.6 cm, right vas deferens measuring 4.7 cm in length by 0.4 cm in diameter, left seminal vesicle measuring 3.3 x 1.0 x 0.6 cm, left vas deferens measuring 4.4 cm in length by 0.4 cm in diameter, right ureter measuring 4.5 cm in length by 0.4 cm in diameter, left ureter measuring 0.4 cm in diameter. The serosa is raya-pink and smooth. The anterior aspect is inked blue and the posterior aspect is inked black. The specimen is opened through the anteriorly to reveal a 1.1 x 1.0 cm raya-white, fibrotic and ill-defined discolored area grossly consistent with scarring located within the anterior bladder wall. The scarred area was serially sectioned to reveal a possible depth of invasion of less than 0.1 cm. The uninvolved bladder mucosa is raya-pink, glistening with prominent foldings. The external surface of the prostate is raya-red and ragged grossly consistent with cautery. It is sectioned into 5 slices to reveal a raya-pink and lobulated cut surface with no lesions grossly identified. Assembler [employer] sections of specimen are submitted as follows: E1 urethral margin, en face E2 right ureter margin, en face E3 left ureter margin, en face E4-E8 scarred area entirely from the anterior bladder wall E9 bladder dome E10 posterior bladder wall E11 right lateral bladder wall E12 left lateral bladder wall E13 bladder trigone E14 right ureter to bladder mucosa E15 left ureter to bladder mucosa E16 insertion of right seminal vesicle and vas deferens E17 insertion of left seminal vesicle and vas deferens E18 prostate slice #2 right anterior E19 prostate slice #2 left anterior E20 prostate slice #2 right posterior E21 prostate slice #2 left posterior E22 prostate slice #4 right anterior E23 prostate slice #4 left anterior E24 prostate slice #4 right posterior E25 prostate slice #4 left posterior Cold Time: 2h 25m Cherry Drake 5 4:42 PM [facility] Comment:This is an appended report. These results have been appended to a previously preliminary verified report. Note: A resident was involved in the service. I attest I examined the relevant preparations for the specimens and confirmed the diagnosis or interpretation. 4:42 PM EST [facility] Comment:This is an appended report. These results have been appended to a previously preliminary verified report. Tissue Structure of right ureter / Unknown 01/11/2025 9:54 AM EDT 01/11/2025 10:00 AM EDT Comment:Pre-op diagnosis: Malignant neoplasm of urinary bladder, unspecified site (CMS/HCC) [C67.9] Tissue specimen (specimen) Structure of lymph node / Unknown 01/11/2025 10:12 AM EDT 01/11/2025 2:40 PM EDT Comment:Pre-op diagnosis: Malignant neoplasm of urinary bladder, unspecified site (CMS/HCC) [C67.9] Tissue specimen (specimen) Structure of lymph node / Unknown 01/11/2025 10:32 AM EDT 01/11/2025 2:40 PM EDT Comment:Pre-op diagnosis: Malignant neoplasm of urinary bladder, unspecified site (CMS/HCC) [C67.9] Tissue specimen (specimen) Structure of left ureter / Unknown 01/11/2025 10:41 AM EDT 01/11/2025 10:46 AM EDT Comment:Pre-op diagnosis: Malignant neoplasm of urinary bladder, unspecified site (CMS/HCC) [C67.9] Tissue specimen (specimen) Urinary bladder structure / Unknown 01/11/2025 12:16 PM EDT 01/11/2025 2:40 PM EDT Comment:Pre-op diagnosis: Malignant neoplasm of urinary bladder, unspecified site (CMS/HCC) [C67.9] us Dejuan Hendricks MD LAB PATHOLOGY ORDERABLES Edit ed Result - Final [facility] [address] [place] [address] * Type and Screen (01/11/2025 7:40 AM EDT) ABO/Rh O Positive 01/11/2025 7:49 AM EDT BLOOD BANK Antibody Screen Negative 01/11/2025 7:49 AM EDT BLOOD BANK Specimen Expiration 01/14/2025 23:59 01/11/2025 7:49 AM EDT BLOOD BANK Blood Venous blood specimen / Unknown Venipuncture / Unknown 01/11/2025 7:40 AM EDT 01/11/2025 7:48 AM EDT us Geremias Caballero [facility] BLOOD BANK TEST ORDERA BLES Final Result BLOOD BANK [address] documented in this encounter Visit Diagnoses Diagnosis Malignant neoplasm of urinary bladder, unspecified site Bladder tumor Neoplasm of unspecified nature of bladder 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 Malignant neoplasm of urinary bladder, unspecified site documented in this encounter Admitting Diagnoses Diagnosis Bladder cancer (CMS/HCC) Malignant neoplasm of bladder, part unspecified Malignant neoplasm of urinary bladder, unspecified site documented in this encounter Administered Medications Inactive Administered Medications - up to 3 most recent administrations Medication Order MAR Action Action Date Dose Rate Site acetaminophen (Tylenol) tablet 1,000 mg 1,000 mg, Oral, Every 6 hours scheduled, First dose on Sat01/11/25 at 1800, Until Discontinued, Routine, Recovery(Phase II-Outpatient)/On Unit(Inpatient) Given 01/15/2025 12:09 PM EDT 1,000 mg Given 01/15/2025 6:26 AM EDT 1,000 mg Given 01/15/2025 12:38 AM EDT 1,000 mg alvimopan (Entereg) capsule 12 mg 12 mg, Oral, 2 times daily, First dose on Sat01/11/25 at 0615, Until Discontinued, Routine, Holding - Preprocedure Given 01/11/2025 6:40 AM EDT 12 mg alvimopan (Entereg) capsule 12 mg 12 mg, Oral, 2 times daily, First dose on Sat01/11/25 at 2100, Until Discontinued, Routine, Recovery(Phase II-Outpatient)/On Unit(Inpatient) Given 01/13/2025 9:15 PM EDT 12 mg Given 01/13/2025 8:15 AM EDT 12 mg Given 01/12/2025 9:04 PM EDT 12 mg apixaban (Eliquis) tablet 2.5 mg 2.5 mg, Oral, 2 times daily, 60 doses, First dose (after last reorder) on Sat01/15/25 at 1300, Last dose on Sat02/13/25 at 2100, Routine Given 01/15/2025 1:50 PM EDT 2.5 mg citalopram (CeleXA) tablet 20 mg 20 mg, Oral, Every morning, First dose on Sat01/12/25 at 0600, Until Discontinued, Routine, Recovery(Phase II-Outpatient)/On Unit(Inpatient) Given 01/15/2025 6:26 AM EDT 20 mg Given 01/14/2025 6:37 AM EDT 20 mg Given 01/13/2025 5:19 AM EDT 20 mg heparin (porcine) injection 5,000 Units 5,000 Units, Subcutaneous, Once, 1 dose, On Sat01/11/25 at 0700, Routine, Holding - Preprocedure Given 01/11/2025 6:35 AM EDT 5,000 Units Right Upper Arm (Back) heparin (porcine) injection 5,000 Units 5,000 Units, Subcutaneous, Every 8 hours scheduled, First dose on Sat01/11/25 at 1545, Until Discontinued, Routine, Recovery(Phase II-Outpatient)/On Unit(Inpatient)Indications:Pr ophylaxis of Venous Thromboembolism Given 01/15/2025 6:26 AM EDT 5,000 Units Left Upper Arm (Back) Given 01/14/2025 8:38 PM EDT 5,000 Units L eft Upper Abdomen Given 01/14/2025 1:07 PM EDT 5,000 Units L eft Upper Arm (Back) HYDROmorphone (Dilaudid) injection 0.5 mg 0.5 mg, Intravenous, Every 10 min PRN, 5 doses, Starting on Sat01/11/25 at 1402, Until Sat01/11/25 at 2027, Routine, Recovery (Phase I only), DVPRS >/= 5, CPOT >/= 3, FLACC >/= 4, PAINAD >/= 4Indications:Intensive Care Unit Sedation Given 01/11/2025 2:56 PM EDT 0.5 mg HYDROmorphone (Dilaudid) injection 0.5 mg 0.5 mg, Intravenous, Every 2 hour PRN, Starting on Sat01/11/25 at 1450, Until Sat01/15/25 at 1639, Routine, Recovery(Phase II-Outpatient)/On Unit(Inpatient), severe pain Given 01/11/2025 9:13 PM EDT 0.5 mg lactated Ringer's infusion 42 mL/hr, Intravenous, Continuous, Starting on Sat01/11/25 at 1545, Until Jeanne 01/14/25 at 1640, Routine Rate/Dose Change 01/14/2025 8:41 AM EDT 42 mL/hr 42 mL/hr Rate/Dose Verify 01/13/2025 1:34 PM EDT 84 mL/hr 84 mL/h r New Bag 01/13/2025 8:44 AM EDT 84 mL/hr 84 mL/hr lidocaine (Lidoderm) 5 % patch 1 patch 1 patch, Apply externally, Every 24 hours, First dose on Sat01/11/25 at 1545, Until Discontinued, Administer over 12 Hours, Routine Medication Applied 01/14/2025 3:05 PM EDT 1 patch Abdominal Tissue Medication Applied 01/13/2025 3:21 PM EDT 1 patch Abdominal Tissue Medication Applied 01/12/2025 3:41 PM EDT 1 patch Abdominal Tissue magnesium sulfate IVPB 2 g 2 g, Intravenous, Once, 1 dose, On Sat01/14/25 at 0700, Routine New Bag 01/14/2025 8:40 AM EDT 2 g 2 5 mL/hr magnesium sulfate IVPB 2 g 2 g, Intravenous, Once, 1 dose, On Sat01/15/25 at 0645, Routine New Bag 01/15/2025 6:26 AM EDT 2 g 2 5 mL/hr methocarbamol (Robaxin) tablet 750 mg 750 mg, Oral, 4 times daily, First dose on Sat01/11/25 at 1800, Until Discontinued, Routine, Recovery(Phase II-Outpatient)/On Unit(Inpatient) Given 01/15/2025 1:50 PM EDT 750 mg Given 01/15/2025 8:26 AM EDT 750 mg Given 01/14/2025 8:36 PM EDT 750 mg mometasone-formoterol (Dulera 200) 200-5 MCG/ACT inhaler 2 puff 2 puff, Inhalation, 2 times daily, First dose on Sat01/11/25 at 2100, Until Discontinued, Recovery(Phase II-Outpatient)/On Unit(Inpatient) Given 01/15/2025 8:26 AM EDT 2 puffs Given 01/14/2025 8:41 PM EDT 2 puffs Given 01/14/2025 7:51 AM EDT 2 puffs mupirocin (Bactroban) 2 % ointment 1 Application Each Nostril, 2 times daily, 10 doses, First dose on Sat01/12/25 at 0915, Last dose on Sat01/16/25 at 2100, Routine Given 01/14/2025 8:41 PM EDT 1 Application Given 01/14/2025 7:52 AM EDT 1 Application Given 01/13/2025 9:15 PM EDT 1 Application nitrofurantoin (macrocrystal-monohydrate) (Macrobid) capsule 100 mg 100 mg, Oral, Daily, First dose on Sat01/15/25 at 1145, Until Discontinued, Routine Given 01/15/2025 12:09 PM EDT 100 mg ondansetron (Zofran) injection 4 mg 4 mg, Intravenous, Every 6 hours PRN, Starting on Sat01/11/25 at 1447, Until Sat01/15/25 at 1639, Routine, Recovery(Phase II-Outpatient)/On Unit(Inpatient), nausea, vomiting Given 01/14/2025 10:03 AM EDT 4 mg oxyCODONE (Roxicodone) immediate release tablet 5 mg 5 mg, Oral, Every 4 hours PRN, Starting on Sat01/11/25 at 1446, Until Sat01/15/25 at 1639, Routine, Recovery(Phase II-Outpatient)/On Unit(Inpatient), severe pain Given 01/12/2025 11:39 PM EDT 5 mg Given 01/12/2025 6:41 AM EDT 5 mg Given 01/12/2025 12:12 AM EDT 5 mg potassium chloride CR (Klor-Con) ER tablet 40 mEq 40 mEq, Oral, Every 4 hours, 2 doses, First dose on Sat01/11/25 at 1645, Last dose on Sat01/11/25 at 2045, Routine, Recovery(Phase II-Outpatient)/On Unit(Inpatient) Given 01/11/2025 9:11 PM EDT 40 mEq Given 01/11/2025 4:20 PM EDT 40 mEq Povidone-Iodine 5 % swab solution 1 Application Nasal, Once, 1 dose, On Sat01/11/25 at 0700, Routine Given 01/11/2025 6:35 AM EDT 1 Application propranolol (Inderal) tablet 10 mg 10 mg, Oral, 2 times daily, First dose on Sat01/11/25 at 2100, Until Discontinued, Routine, Recovery(Phase II-Outpatient)/On Unit(Inpatient) Given 01/15/2025 8:26 AM EDT 10 mg Given 01/14/2025 8:36 PM EDT 10 mg Given 01/14/2025 7:52 AM EDT 10 mg rOPINIRole (Requip) tablet 0.5 mg 0.5 mg, Oral, 3 times daily, First dose on Sat01/11/25 at 1600, Until Discontinued, Routine Given 01/15/2025 8:25 AM EDT 0.5 mg Given 01/14/2025 8:36 PM EDT 0.5 mg Given 01/14/2025 3:05 PM EDT 0.5 mg senna-docusate (Uzma-Colace) 8.6-50 MG per tablet 1 tablet 1 tablet, Oral, Nightly, First dose on Sat01/11/25 at 2100, Until Discontinued, Routine, Recovery(Phase II-Outpatient)/On Unit(Inpatient) Given 01/14/2025 8:37 PM EDT 1 tablet Given 01/13/2025 9:15 PM EDT 1 tablet Given 01/12/2025 9:05 PM EDT 1 tablet sodium chloride 0.9 % flush 10 mL 10 mL, Intravenous, Every 12 hours, First dose on Sat01/11/25 at 1545, Until Discontinued, Routine, Recovery(Phase II-Outpatient)/On Unit(Inpatient) Given 01/14/2025 3:05 PM EDT 10 mL Given 01/13/2025 3:21 PM EDT 10 mL Given 01/12/2025 3:41 PM EDT 10 mL sodium chloride 0.9 % flush 10 mL 10 mL, Intravenous, As needed, Starting on Sat01/11/25 at 1446, Until Sat01/15/25 at 1639, Routine, Recovery(Phase II-Outpatient)/On Unit(Inpatient), line care Sodium Phosphate-NaCl IVPB 15 mmol 15 mmol, Intravenous, Once, 1 dose, On Sat01/13/25 at 0645, Routine Given 01/13/2025 6:48 AM EDT 15 mmol 62.5 mL/hr Tiotropium [place] Monohydrate (Spiriva Respimat) 2.5 MCG/ACT inhaler 2 puff 2 puff, Inhalation, Daily, First dose on Sat01/12/25 at 0900, Until Discontinued, Recovery(Phase II-Outpatient)/On Unit(Inpatient) Given 01/15/2025 8:26 AM EDT 2 puffs Given 01/14/2025 7:52 AM EDT 2 puffs Given 01/13/2025 8:17 AM EDT 2 puffs documented in this encounter Active and Recently Administered Medications Times are shown in EDT. Scheduled Medication Order 01/13/2025 01/14/2025 01/15/2025 acetaminophen (Tylenol) tablet 1,000 mg 1,000 mg, Oral, Every 6 hours scheduled, First dose on Sat01/11/25 at 1800, Until Discontinued, Routine, Recovery(Phase II-Outpatient)/On Unit(Inpatient) 0519 (Given - Provider: Shelby Winter)1119 (Given - Provider: Luke Styles RN)1709 (Given - Provider: Luke Styles, ADOLFO) 0100 (Given - Provider: Tom Kang RN)0637 (Given - Provider: Belinda Stover, ADOLFO)1119 (Not Given - Provider: Luke Styles, ADOLFO - Reason: Patient/family refused)1710 (Given - Provider: Luke Stlyes, ADOLFO) 0038 (Given - Provider: Belinda Stover RN)0626 (Given - Provider: Belinda Stover, ADOLFO)1209 (Given - Provider: Kilo Dueñas RN) alvimopan (Entereg) capsule 12 mg (CANCELED) 12 mg, Oral, 2 times daily, First dose on Sat01/11/25 at 2100, Until Discontinued, Routine, Recovery(Phase II-Outpatient)/On Unit(Inpatient) 0815 (Given - Provider: Luke Styles, ADOLFO)2115 (Given - Provider: Belinda Stover, ADOLFO) apixaban (Eliquis) tablet 2.5 mg 2.5 mg, Oral, 2 times daily, 60 doses, First dose (after last reorder) on Sat01/15/25 at 1300, Last dose on Sat02/13/25 at 2100, Routine 1350 (Given - Provid er: Kilo Dueñas RN) citalopram (CeleXA) tablet 20 mg 20 mg, Oral, Every morning, First dose on Sat01/12/25 at 0600, Until Discontinued, Routine, Recovery(Phase II-Outpatient)/On Unit(Inpatient) 0519 (Given - Provider: Shelby Winter) 0637 (Given - Provider: Belinda Stover, ADOLFO) 0626 (Given - Provider: Belinda Stover RN) heparin (porcine) injection 5,000 Units (CANCELED) 5,000 Units, Subcutaneous, Every 8 hours scheduled, First dose on Sat01/11/25 at 1545, Until Discontinued, Routine, Recovery(Phase II-Outpatient)/On Unit(Inpatient) 0519 (Given - Provider: Shelby Winter)1325 (Given - Provider: Luke Styles, ADOLFO)2115 (Given - Provider: Belinda Stover, ADOLFO) 0637 (Given - Provider: Belinda Stover, ADOLFO)1307 (Given - Provider: Luke Styles, ADOLFO)2038 (Given - Provider: Belinda Stover, ADOLFO) 0626 (Given - Provider: Belinda Stover, ADOLFO) lidocaine (Lidoderm) 5 % patch 1 patch 1 patch, Apply externally, Every 24 hours, First dose on Sat01/11/25 at 1545, Until Discontinued, Administer over 12 Hours, Routine 0441 (Medication Removed - Provider: Shelby Winter)1521 (Medication Applied - Provider: Luke Styles, ADOLFO) 0345 (Medication Removed - Provider: Belinda Stover, ADOLFO)1505 (Medication Applied - Provider: Luke Styles, ADOLFO) 0357 (Medication Removed - Provider: Belinda Stover, ADOLFO)1545 (Canceled Entry - Provider: Automatic Discharge Provider - Comment: Automatically canceled at discontinue of medication order) magnesium sulfate IVPB 2 g (COMPLETED) 2 g, Intravenous, Once, 1 dose, On Jeanne 01/14/25 at 0700, Routine 0840 (New Bag - Provider: Luke Styles RN) magnesium sulfate IVPB 2 g (COMPLETED) 2 g, Intravenous, Once, 1 dose, On Sat01/15/25 at 0645, Routine 0626 (New Bag - Provider: Belinda Stover, ADOLFO) methocarbamol (Robaxin) tablet 750 mg 750 mg, Oral, 4 times daily, First dose on Sat01/11/25 at 1800, Until Discontinued, Routine, Recovery(Phase II-Outpatient)/On Unit(Inpatient) 0815 (Given - Provider: Luke Styles RN)1325 (Given - Provider: Luke Styles RN)1709 (Given - Provider: Luke Styles RN)211 (Given - Provider: Belinda Stover RN) 0753 (Given - Provider: Luke Styles, ADOLFO)1307 (Given - Provider: Luke Styles RN)1710 (Given - Provider: Luke Styles RN)203 (Given - Provider: Belinda Stover RN) 0826 (Given - Provider: Kilo Dueñas, ADOLFO)1350 (Given - Provider: Kilo Dueñas RN) mometasone-formoterol (Dulera 200) 200-5 MCG/ACT inhaler 2 puff(Linked Group 1) 2 puff, Inhalation, 2 times daily, First dose on Sat01/11/25 at 2100, Until Discontinued, Recovery(Phase II-Outpatient)/On Unit(Inpatient) 0818 (Given - Provider: Luke Styles RN)2116 (Given - Provider: Belinda Stover, ADOLFO) 075 (Given - Provider: Luke Styles, ADOLFO)204 (Given - Provider: Belinda Stover RN) 08 (Given - Provider: Kilo Dueñas, ADOLFO) mupirocin (Bactroban) 2 % ointment 1 Application Each Nostril, 2 times daily, 10 doses, First dose on 01/12/25 at 0915, Last dose on 01/16/25 at 2100, Routine 0815 (Given - Provider: Luke Styles RN)2114 (Given - Provider: Belinda Stover RN) 075 (Given - Provider: Luke Styles RN)2040 (Given - Provider: Belinda Stover RN) 08 (Not Given - Provider: Kilo Dueñas RN - Reason: Patient/family refused) nitrofurantoin (macrocrystal-monohydr ate) (Macrobid) capsule 100 mg 100 mg, Oral, Daily, First dose on Sat01/15/25 at 1145, Until Discontinued, Routine 1209 (Given - Provid er: Kilo Dueñas RN) propranolol (Inderal) tablet 10 mg 10 mg, Oral, 2 times daily, First dose on Sat01/11/25 at 2100, Until Discontinued, Routine, Recovery(Phase II-Outpatient)/On Unit(Inpatient) 08 (Given - Provider: Luke Styles RN)2115 (Given - Provider: Belinda Stover RN) 075 (Given - Provider: Luke Styles RN)2035 (Given - Provider: Belinda Stover RN) 0826 (Given - Provider: Kilo Dueñas, ADOLFO) rOPINIRole (Requip) tablet 0.5 mg 0.5 mg, Oral, 3 times daily, First dose on Sat01/11/25 at 1600, Until Discontinued, Routine 0815 (Given - Provider: Luke Styles RN)1521 (Given - Provider: Luke Styles RN)2114 (Given - Provider: Belinda Stover RN) 075 (Given - Provider: Luke Styles RN)1505 (Given - Provider: Luke Styles RN)2035 (Given - Provider: Belinda Stover RN) 0825 (Given - Provider: Kilo Dueñas, ADOLFO)1600 (Canceled Entry - Provider: Automatic Discharge Provider - Comment: Automatically canceled at discontinue of medication order) senna-docusate (Uzma-Colace) 8.6-50 MG per tablet 1 tablet 1 tablet, Oral, Nightly, First dose on Sat01/11/25 at 2100, Until Discontinued, Routine, Recovery(Phase II-Outpatient)/On Unit(Inpatient) 2114 (Given - Provider: Belinda Stover RN) 2036 (Given - Provider: Belinda Stover RN) sodium chloride 0.9 % flush 10 mL(Linked Group 2) 10 mL, Intravenous, Every 12 hours, First dose on Sat01/11/25 at 1545, Until Discontinued, Routine, Recovery(Phase II-Outpatient)/On Unit(Inpatient) 0441 (Canceled Entry - Provider: Shelby Winter)1521 (Given - Provider: Luke Styles RN) 0345 (Canceled Entry - Provider: Belinda Stover RN)1505 (Given - Provider: Luke Styles, ADOLFO) 0357 (Canceled Entry - Provider: Belinda Stover RN)1545 (Canceled Entry - Provider: Automatic Discharge Provider - Comment: Automatically canceled at discontinue of medication order) Sodium Phosphate-NaCl IVPB 15 mmol (COMPLETED) 15 mmol, Intravenous, Once, 1 dose, On Sat01/13/25 at 0645, Routine 0648 (Given - Provider: Shelby Winter) Tiotropium [place] Monohydrate (Spiriva Respimat) 2.5 MCG/ACT inhaler 2 puff(Linked Group 1) 2 puff, Inhalation, Daily, First dose on Sat01/12/25 at 0900, Until Discontinued, Recovery(Phase II-Outpatient)/On Unit(Inpatient) 0817 (Given - Provider: Luke Styles, ADOLFO) 0752 (Given - Provider: Luke Styles, ADOLFO) 0826 (Given - Provider: Kilo Dueñas RN) Continuous Medication Order 01/13/2025 01/14/2025 01/15/2025 lactated Ringer's infusion (CANCELED) 42 mL/hr, Intravenous, Continuous, Starting on Sat01/11/25 at 1545, Until Jeanne 01/14/25 at 1640, Routine 0844 (New Bag - Provider: Luke Styles RN)1334 (Rate/Dose Verify - Provider: Luke Styles, ADOLFO) 0841 (Rate/Dose Change - Provider: Luke Styles, ADOLFO)1713 (Stopped - Provider: Luke Styles, ADOLFO) PRN Medication Order 01/13/2025 01/14/2025 01/15/2025 albuterol (Proventil) (2.5 MG/3ML) 0.083% nebulizer solution 2.5 mg 2.5 mg, Nebulization, Every 6 hours PRN, Starting on Sat01/11/25 at 1448, Until Sat01/15/25 at 1639, Routine, Recovery(Phase II-Outpatient)/On Unit(Inpatient), wheezing, shortness of breath, or cough HYDROmorphone (Dilaudid) injection 0.5 mg 0.5 mg, Intravenous, Every 2 hour PRN, Starting on Sat01/11/25 at 1450, Until Sat01/15/25 at 1639, Routine, Recovery(Phase II-Outpatient)/On Unit(Inpatient), severe pain ondansetron (Zofran) injection 4 mg 4 mg, Intravenous, Every 6 hours PRN, Starting on Sat01/11/25 at 1447, Until Sat01/15/25 at 1639, Routine, Recovery(Phase II-Outpatient)/On Unit(Inpatient), nausea, vomiting 1003 (Given - Provider: Chantel Styles RN) oxyCODONE (Roxicodone) immediate release tablet 5 mg 5 mg, Oral, Every 4 hours PRN, Starting on Sat01/11/25 at 1446, Until Sat01/15/25 at 1639, Routine, Recovery(Phase II-Outpatient)/On Unit(Inpatient), severe pain sodium chloride 0.9 % flush 10 mL(Linked Group 2) 10 mL, Intravenous, As needed, Starting on Sat01/11/25 at 1446, Until Sat01/15/25 at 1639, Routine, Recovery(Phase II-Outpatient)/On Unit(Inpatient), line care Linked Groups Order Group 1: Tiotropium [place] Monohydrate (Spiriva Respimat) 2.5 MCG/ACT inhaler 2 puffJump to med 2 puff, Inhalation, Daily, First dose on Sat01/12/25 at 0900, Until Discontinued, Recovery(Phase II-Outpatient)/On Unit(Inpatient) And mometasone-formoterol (Dulera 200) 200-5 MCG/ACT inhaler 2 puffJump to med 2 puff, Inhalation, 2 times daily, First dose on Sat01/11/25 at 2100, Until Discontinued, Recovery(Phase II-Outpatient)/On Unit(Inpatient) Group 2: Insert peripheral IV (CANCELED) Once, On Sat01/11/25 at 1447, For 1 occurrence, Recovery(Phase II- Outpatient)/On Unit(Inpatient) And Saline lock IV (CANCELED) Once, On Sat01/11/25 at 1447, For 1 occurrence, Recovery(Phase II- Outpatient)/On Unit(Inpatient) And sodium chloride 0.9 % flush 10 mLJump to med 10 mL, Intravenous, Every 12 hours, First dose on Sat01/11/25 at 1545, Until Discontinued, Routine, Recovery(Phase II-Outpatient)/On Unit(Inpatient) And sodium chloride 0.9 % flush 10 mLJump to med 10 mL, Intravenous, As needed, Starting on Sat01/11/25 at 1446, Until Sat01/15/25 at 1639, Routine, Recovery(Phase II-Outpatient)/On Unit(Inpatient), line care documented in this encounter Additional Health Concerns Active Problems Noted Date Diagnosed Date Autogenerated Problem 07/30/2024 Infection Onset 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
--- OUTSIDE RECORDS SUMMARY | 2025-01-11 06:45 | XMS_ITS | Encounter Summary ---
Author Organization [facility] Address [address] [place] [address] Care Team Providers Care Field Representative/Health Education Name Role Phone Riley Hunter MD Primary Care Provider [phone] Reason for Visit * Auth/Cert (Routine) Specialty Diagnoses / Procedures Referred By Contac t Referred To Contact Diagnoses Malignant neoplasm of urinary bladder, unspecified site Malignant neoplasm of urinary bladder, unspecified site (CMS/HCC) [C67.9] Procedures MA CYSTECTOMY,ILEAL CONDUIT/SIGMOID BLADDER MA REMV PROSTATE,RETROPUB,RADICAL CYSTECTOMY Dejuan Hendricks MD [address] [address] Phone: tel: fax: [facility] [address] [place] [address] Phone: tel: Referral ID Status Reason Start Date Expiration Date Visits Re quested Visits Authorized [id number] 1 2 Encounter Details Date Type Department Care Team (Late st Contact Info) Description 01/11/2025 7:45 AM EDT - 01/11/2025 1:55 PM EDT Surgery [facility] [address] [place] [address] Dejuan Hendricks MD [address] [address] CYSTECTOMY [[id number] (CPT )] Surgery Details Date/Time Status Location OR Service Patient Class Case Class Case Type Trauma Case? 01/11/2025 7:45 AM Posted VISHAL OR 2OR 07 Urology Surgery Admit E-Electiv e Panel 1 Procedure LRB Anes Op Region Wound Class Comments CYSTECTOMY N/A General Surgeon Surgeon Role Service Panel Dejuan Hendricks MD Primary Urology 1 Dejuan Hendricks MD Primary Urology 1 Dejuan Hendricks MD Primary Urology 1 Sebastian Vasquez MD Resident - Assisting 1 documented in this encounter Social History Tobacco Use Types Packs/Day Years [...] and Family Not on file 10/27/2024 Attends [employer] Not on file 10/27 Active Member [...] any time in the past 12 m cox branson, were you homeless or living in a intermediate (including now)? No 10/27/2024 Utilities Answer Date [...] Sign Reading Time Taken Comments Blood Pressure 127/72 01/11/2025 6:18 AM EDT Pulse 94 01/11/2025 6:18 AM EDT Temperature 36.7 C (98 F) 01/11/2025 6:18 AM EDT Respiratory Rate 16 01/11/2025 6:18 AM EDT Oxygen Saturation 93% 01/11/2025 6:18 AM EDT Inhaled Oxygen Concentration - - Weight 95.3 kg (210 lb) 01/11/2025 6:18 AM EDT Height - - Body Mass Index 28.47 01/12/2025 9:55 AM EDT documented in this encounter Functional Status * AUDIT-C Score Answer Date of Assessment Author 0 11/09/2024 10:36 AM EDT Nieves Gaspar * Question Answer Date of Assessment Author Q1: How often do you have a drink containing alcohol? Never 11/09/2024 10:36 AM EDT Nievse Gaspar Q2: How many drinks containing alcohol [...] things Not at all 11/13/2024 8:00 AM EDT Lisa Barrera Feeling down, depressed, or hopeless Not at all 10/17 8:00 AM SHAWNT Lisa Barrera Patient Health Questionnaire-2 Score 0 10/17 8:00 AM EDT Lisa Barrera * Question Answer Date of Assessment Author Trouble falling or staying a sleep, or sleeping too much Not at all 11/09/2024 10:34 AM SHAWNT Nieves Gaspar Feeling tired or having abby le energy Not at all 11/09/2024 10:34 AM SHAWNT Nieves Gaspar Poor appetite or overeating Not at all 11/09/2024 10 :34 AM EDT Nieves Gaspar Feeling bad about yourself - or that you are a failure or have let yourself or your family down Not at all 11/09/2024 10:34 AM EDT Nieves Gaspar Trouble concentrating on thi ngs, such as reading the newspaper or watching television Not at all 11/09/2024 10:34 AM EDT Nieves Gaspar Moving or speaking so slowly that other people could have noticed? Or the opposite - being so fidgety or restless that you have been moving around a lot more than usual. Not at all 11/09/2024 10:34 AM EDT Nieves Gaspar Thoughts that you would be b priya off or hurting yourself in some way Not at all 11/13/2024 8:00 AM EDT Lisa Barrera Patient Health Questionnaire -9 Score 0 11/09/2024 10:34 AM EDT Nieves Gaspar * Calculated C-SSRS Risk Score (Lifetime/Recent) Answer Date of Assessment Author No Risk Indicated 01/11/2025 6:58 AM EDT Shanti Erickson, RN * How difficult have these problems made it for you to do your work, take care of things at home, or get along with other people? Answer Date of Assessment Author Not difficult at all 11/09/2024 10:34 AM EDT Nieves Bartholomew * Question Answer Date of Assessment Author 1. Wish to be (Past 1 Month) No 01/11/2025 6:58 AM EDT Chyna Hoyos, RN 2. Non-Specific Active Suicidal Thoughts (Past 1 Month) No 01/11/2025 6:58 AM EDT Chyna Hoyos, RN 6. Suicidal Behavior (Lifetime) No 01/11/2025 6:58 AM EDT Chyna Hoyos, RN documented as of this encounter Discharge [...] confirm your location ahead of your appointment) [facility] Urology Department Clinic at [facility] [address] [facility], [address] , [address] [place] [address] Clinic After Hours [facility] Building Urology Clinic [address] [place] [address] Clinic After Hours [facility] Multidisciplinary Urology Clinic [address] [facility] 1st [place] [address] Clinic documented in this encounter Medications at [...] 12 hours or as directed by MD. 20 patch 01/15/2025 methocarbamol (Robaxin) 750 MG [...] mL by mouth 3 times a day. 01207 mL 01/15/2025 omeprazole (PriLOSEC) [address] [...] PCP name and Address: Riley Hunter MD [address] [place] [address] / [place] [address] Referring provider name and address: No referring provider defined for this encounter. Chief Concern, Brief History of Present Illness, and Hospital Course Draft Hospital Course Grace Islas is a 69 y.o. male with PMH MIBC who presented to [facility] for surgical intervention. They were taken [...] Breztri Aerosphere 160-9-4.8 MCG/ACT aerosol Generic drug: Nfcbvrd-Okrmzhybjff-Xegbmcakhr Inhale 2 puffs 2 times a day. [...] Your Medications These medications were sent to [facility] - [place], [place] - [address], [facility] [address] acetaminophen 500 MG tablet apixaban 2.5 MG tablet apixaban 2.5 MG tablet lidocaine 5 % patch methocarbamol 750 MG tablet naloxone 4 mg/0.1 mL nasal spray nitrofurantoin (macrocrystal-monohydrate) 100 MG capsule nutrional drink glucose control liquid liquid oxyCODONE 5 MG immediate release tablet senna-docusate 8.6-50 MG tablet Discharge Diagnosis Medical Problems Active and Resolved Hospital Problems Hospital * (Principal) Bladder cancer ([facility]) Malignant neoplasm of urinary bladder, unspecified site [...] confirm your location ahead of your appointment) [facility] Urology Department Clinic at [facility] [address], 2nd Floor, [address], [address] [place] [address] Clinic After Hours [facility] Building Urology Clinic [address] [place] [address] Clinic After Hours [facility] Multidisciplinary Urology Clinic [address] [place] [address] Clinic Outpatient Follow-Up Future Appointments Date Time Provider Department Center 01/27/2025 9:30 AM Yolanda Tolentino APRN [facility] 01/27/2025 9:30 AM MULTI-D ADJUSTMENT CLERK TOBACCO FEEDER CATCHER SHANTELLE Vincent 01/27/2025 10:20 AM Dejuan Hendricks MD [facility] 02/08/2025 1:30 PM Felicita Lindquist [facility] Test Results Pending At Discharge Pending Labs Order Current Status Prepare Leukocyte Reduced RBC: 2 Units Preliminary result Pertinent Physical Exam At Time of Discharge Physical Exam GEN: NAD HEENT: NCAT, EOMI RESP: Equal bilateral chest rise, normal work of breathing CV: Regular rate, appears well perfused ABD: Nondistended, incisions C/D/I : urostomy pink and patent, aquarium specialist stents in place draining clear yellow [...] 3:16 PM EDT * Progress Notes - Loo, Chen A, RN - 01/15/2025 1:45 PM EDT Case Management Discharge Note Grace Islas 69 y.o. male CSN: [id number] Admission: 01/11/2025 5:42 AM Primary Problem: Bladder cancer (CMS/HCC) Primary Herpetology Teacher: Primary Caregiver: Self Assistance Available at Discharge: Family/Herpetology Teacher(s) Willingness Assessed to care for patient at home: Yes Family/Herpetology Teacher(s) Readiness Assessed to care for patient at home: Yes Housing Circumstances-Z Codes: Patient Referred to Financial or Community Resources: Discharge Facility/Level of Care Needs: Discharge Facility/Level of Care Needs: 1-Home or Self Care Patient's Choice of Community Agency(s): Patient/Family Anticipated Services at Transition: Patient/Family Anticipated Services at Transition: case work aide DME/Equipment Needed after Discharge: Equipment Currently Used [...] to order your first monthly ostomy supplies. [employer] Phone: Follow up Please call for any samples/educational materials. Discharge Transportation: Transportation Anticipated: family or friend will provide Transportation Home at Discharge: Family/Friend will Provide Has discharge transport been arranged?: Yes What day is the transport expected?: 01/15/25 Follow Up Transport: Transportation Needed to Follow up Appoinments: Family/Friend will Provide Additional Comments: No HH acceptance at this time. Ostomy supplies orders sent to [employer] to receive sample pack in the mail in 2-3business days. Ostomy supplies order and supporting documentation sent to Jaimie Llanos via e-mail [email or web address] and fax [phone] or [phone]. Company will verify insurance and will call pt to place an order. POC reviewed with primary team. Refer to primary team's discharge note for details. Medically readyto discharge today. Patient agrees to dc home today and agrees with above DC plan. In??KUNAL Betancourt, conference services manager * Pricillasunny NeerajJOHN Kilo Dueñas RN - 01/15/2025 1:39 PM EDT Images from the original note were not included. [id number] Methocarbamol WHY is this medicine prescribed? Methocarbamol [...] 911. What OTHER INFORMATION should I know? Keep all appointments with your doctor. Do not let anyone else take your medication. Ask your pharmacist any questions you have about refilling your prescription. Keep a written list of all of the prescription and nonprescription (ntua-mgc-yttkoab) medicines, vitamins, minerals, and dietary supplements you [...] or pharmacist about specific clinical use. The [employer] represents that the information provided hereunder was formulated with a reasonable standard of care, and in conformity with professional standards in the field. The [employer] makes no representations or warranties, express or implied, including, but not limited to, any implied warranty of merchantability and/or fitness for a particular purpose, with respect to such information and specifically disclaims all such warranties. Users are advised that decisions regarding drug therapy are complex medical decisions requiring the independent, informed decision of an appropriate health care director rn, and the information is provided for informational purposes only. The entire monograph for a drug should be reviewed for a thorough understanding of the drug's actions, uses and side effects. The [employer] does not endorse or recommend the use of any drug.The information is not a substitute for medical care. AHFS?? Patient Medication Information?. ?? Copyright, 2023. The [employer]??, [address] [facility] [address], [address], [place], [place]. All Rights Reserved. Duplication for commercial use must be authorized by [facility]. Selected Revisions: October 30, 2016. AHFS?? Patient Medication Information?. ?? Copyright, 2024 * Davey Smyth - Kilo Dueñas RN - 01/15/2025 1:39 PM EDT Images from the original note were not included. [id number] Senna WHY is this medicine prescribed? Senna [...] on your package or prescription label karen jericamartin, and ask your doctor or pharmacist to [...] and out of their sight and reach. [email or web address] Dispose of unneeded medications in a way [...] be awakened, immediately call emergency services at [phone]. What OTHER INFORMATION should I know? Ask your pharmacist any questions you have about senna. Keep a written list of all of the prescription and nonprescription (sdhg-syq-qvxzbvh) medicines, vitamins, minerals, and dietary supplements you [...] or pharmacist about specific clinical use. The [employer] represents that the information provided hereunder was formulated with a reasonable standard of care, and in conformity with professional standards in the field. The [employer] makes no representations or warranties, express or implied, including, but not limited to, any implied warranty of merchantability and/or fitness for a particular purpose, with respect to such information and specifically disclaims all such warranties. Users are advised that decisions regarding drug therapy are complex medical decisions requiring the independent, informed decision of an appropriate health care director rn, and the information is provided for informational purposes only. The entire monograph for a drug should be reviewed for a thorough understanding of the drug's actions, uses and side effects. The [employer] does not endorse or recommend the use of any drug.The information is not a substitute for medical care. AHFS?? Patient Medication Information?. ?? Copyright, 2023. The [employer]??, [address], [address], [place], [place]. All Rights Reserved. Duplication for commercial use must be authorized by [facility]. Selected Revisions: September 05, 2023. AHFS?? Patient Medication Information?. ?? Copyright, 2024 * [facility] - Kilo Dueñas RN - 01/15/2025 1:38 PM EDT Images from the original note were not included. [id number] Oxycodone IMPORTANT WARNING: Oxycodone may be habit-forming. [...] any questions. You can also visit the (https://www.fda.gov/Drugs/DrugSafety/pqp454695.htm) or the electron microscopist's website to obtain the Medication Guide. Talk [...] or herbal products may interact with oxycodone: Waumandee's wort andtryptophan. Be sure to let your [...] and out of their sight and reach. https://www.[employer].org What should I do in case of OVERDOSE? In case of overdose, call the poison control helpline at . Information is also available online at https://www.poisonhelp.org/help. If the victim has collapsed, had a seizure, has trouble breathing, or can't be awakened, immediately call emergency services at 121. Symptoms of overdose may include the following: ? difficulty breathing, slow or shallow breathing, unusual snoring ? excessive sleepiness, unable to respond or wake up ? limp or weak muscles ? narrowing or widening of the pupils (dark iliamna in the eye) ? cold, clammy skin [...] of all of the prescription and nonprescription (tcic-lgt-jianbsb) medicines, vitamins, minerals, and dietary supplements you [...] or pharmacist about specific clinical use. The [employer] represents that the information provided hereunder was formulated with a reasonable standard of care, and in conformity with professional standards in the field. The [employer] makes no representations or warranties, express or implied, including, but not limited to, any implied warranty of merchantability and/or fitness for a particular purpose, with respect to such information and specifically disclaims all such warranties. Users are advised that decisions regarding drug therapy are complex medical decisions requiring the independent, informed decision of an appropriate health care director rn, and the information is provided for informational purposes only. The entire monograph for a drug should be reviewed for a thorough understanding of the drug's actions, uses and side effects. The [employer] does not endorse or recommend the use of any drug.The information is not a substitute for medical care. AHFS?? Patient Medication Information?. ?? Copyright, 2023. The [employer]??, [address], [address], [place], [place]. All Rights Reserved. Duplication for commercial use must be authorized by [facility]. Selected Revisions: November 30, 2024. AHFS?? Patient Medication Information?. ?? Copyright, 2024 * [facility] - Kilo Dueñas RN - 01/15/2025 1:38 PM EDT Images from the original note were not included. [id number] Nitrofurantoin WHY is this medicine prescribed? Nitrofurantoin [...] of vitamin B in your body, or ldpttrv-0-wxzwrxsvz dehydrogenase (G-6-PD) deficiency (an inherited blood disease). [...] be awakened, immediately call emergency services at 515. What OTHER INFORMATION should I know? Keep [...] of all of the prescription and nonprescription (kmra-kur-teiuepb) medicines, vitamins, minerals, and dietary supplements you [...] or pharmacist about specific clinical use. The [employer] represents that the information provided hereunder was formulated with a reasonable standard of care, and in conformity with professional standards in the field. The [employer] makes no representations or warranties, express or implied, including, but not limited to, any implied warranty of merchantability and/or fitness for a particular purpose, with respect to such information and specifically disclaims all such warranties. Users are advised that decisions regarding drug therapy are complex medical decisions requiring the independent, informed decision of an appropriate health care director rn, and the information is provided for informational purposes only. The entire monograph for a drug should be reviewed for a thorough understanding of the drug's actions, uses and side effects. The [employer] does not endorse or recommend the use of any drug.The information is not a substitute for medical care. AHFS?? Patient Medication Information?. ?? Copyright, 2023. The [employer]??, [address] [facility], [address], [place], [place]. All Rights Reserved. Duplication for commercial use must be authorized by [facility]. Selected Revisions: April 01, 2021. AHFS?? Patient Medication Information?. ?? Copyright, 2024 * Emir Naylor, PharmD - 01/15/2025 12:12 PM EDT Images from the original note were not included. [id number] Apixaban IMPORTANT WARNING: If you have atrial [...] doctor or pharmacist will give you the electron microscopist's patient information sheet (Medication Guide) when you begin treatment with apixaban and each time you refill your prescription. Read the information carefully and ask your doctor or pharmacist if you have any questions. You can also visit the Food and Drug Administration (FDA) website (https://www.fda.gov/Drugs/DrugSafety/aqj410797.htm) or the electron microscopist's website to obtain the Medication Guide. Talk [...] a class of medications called factor Xa inhibitors. It works by blocking the action of [...] or herbal products may interact with apixaban: Waumandee's wort; aspirin; NSAIDs (such as ibuprofen [Advil??, [...] of all of the prescription and nonprescription (ovyg-sys-uzluckk) medicines, vitamins, minerals, and dietary supplements you [...] or pharmacist about specific clinical use. The [employer] represents that the information provided hereunder was formulated with a reasonable standard of care, and in conformity with professional standards in the field. The [employer] makes no representations or warranties, express or implied, including, but not limited to, any implied warranty of merchantability and/or fitness for a particular purpose, with respect to such information and specifically disclaims all such warranties. Users are advised that decisions regarding drug therapy are complex medical decisions requiring the independent, informed decision of an appropriate health care director rn, and the information is provided for informational purposes only. The entire monograph for a drug should be reviewed for a thorough understanding of the drug's actions, uses and side effects. The [employer] does not endorse or recommend the use of any drug.The information is not a substitute for medical care. AHFS?? Patient Medication Information?. ?? Copyright, 2023. The [employer]??, [address] [facility], [address], [place], [place]. All Rights Reserved. Duplication for commercial use must be authorized by [facility]. Selected Revisions: May 02, 2024. AHFS?? [...] Note Visit Date: 01/15/2025 Patient Name: Dagoberto Islas Date of : 1955 Sister at bedside [...] Known Removed: Removal Reason : Wound Image 01/15/25 1109 Stomal Appliance 1 piece;Convex Barrier/Pouch;Flat Barrier/Pouch;Changed 01/15/25 110 Site Assessment Raised;Red;Stent in Place 01/15/25 1109 Peristomal Assessment Intact 01/15/25 1109 Treatment Bag change 01/15/25 1109 HOME RECOMMENDATIONS Appliances One piece soft convex cut to fit cera 27681 Accessories Cavilon skin prep 3342 Irving adhesive remover 7760 Jody Powder 7906 Medium belt 7300 [address] ostomy ring cera 8832 Coloplast night drain bag 15704 Zara Goodman RN 01/15/2025 11:54 AM * [...] and Manage Fall Risk Flowsheets (Taken 01/15/2025 110) Safety Promotion/Fall Prevention: activity supervised Intervention: Prevent Skin Injury Flowsheets (Taken 01/15/2025 110) Body Position: weight shifting Skin Protection: protective footwear used Intervention: Prevent and Manage VTE (Venous Thromboembolism) Risk Flowsheets (Taken 01/15/2025 1107) VTE Prevention/Management: bilateral SCDs (sequential compression devices) off Intervention: Prevent Infection Flowsheets (Taken 01/15/2025 110) Infection Prevention: environmental surveillance performed Goal: Optimal Comfort and Wellbeing Outcome: Ongoing, Progressing Intervention: Monitor Pain and Promote Comfort Flowsheets (Taken 01/15/2025 110) Pain Management Interventions: medication (see MAR) Intervention: Provide Person-Centered Care Flowsheets (Taken 01/15/2025 110) Trust Relationship/Rapport: care explained choices provided emotional [...] Intervention: Identify and Manage Contributors Flowsheets (Taken 01/15/2025 110) Medication Review/Management: medications reviewed Self-Care Promotion: independence [...] Ongoing, Progressing Intervention: Promote Activity and Functional Clive Flowsheets (Taken 01/15/20251106) Activity Assistance Provided: assistance, [...] Intervention: Prevent or Manage Pain Flowsheets (Taken 01/15/20251106) Pain Management Interventions: medication (see MAR) Complementary [...] male with PMH MIBC who presented to [facility] for surgical intervention. They were taken [...] Care Review Outcome: Ongoing, Progressing Flowsheets (Taken 01/15/2025 0131) Progress: no change Plan of Care Reviewed [...] Ongoing, Progressing Intervention: Promote Activity and Functional Clive Flowsheets (Taken 01/15/2025130) Activity Assistance Provided: assistance, [...] listening utilized decision-making supported self-care encouraged 01/14/2025 1602 by Zara Goodman RN Flowsheets (Taken 01/14/2025 [...] Vasquez MD - 01/14/2025 3:23 PM EDT [facility] Urology Inpatient Progress Note Primary Attending: Dejuan [...] 1 Location: LUQ Size (Fr.): (c) Drain [place] Size (mL): 100 mL Urostomy RUQ (Active) Placement Date/Time: 01/11/25 1224 Inserted by: MD Ruthie Hand Hygiene Completed: Yes Location: RUQ GEN: NAD HEENT: NCAT, EOMI RESP: Equal bilateral chest rise, normal work of breathing CV: Regular rate, appears well perfused ABD: Nondistended, incisions C/D/I : urostomy pink and patent, aquarium specialist stents in place draining clear yellow [...] Note Grace Islas 69 y.o. male CSN: [id number] Admission: 01/11/2025 5:42 AM Primary Problem: Bladder cancer (CMS/HCC) Anticipated Discharge Date: 01/18/25 Has Discharge Plans Changed? Medicare Second Notice: Housing Circumstances: Housing Circumstances Action Taken: Medically Ready for Discharge: Additional Comments POC reviewed with primary team. Refer to primary team's note for details. Pt is not medically readyfor discharge. MD anticipates readiness for discharge 2-3 days. In??KUNAL Betancourt, conference services manager * Progress Notes - Gloria Vergara [...] admission Level of Mobility Ambulatory- community Mobility Clive Independent gait without device History of Falls [...] unaware when pt may be discharged from [facility]. Foundation Digger (if applicable) Foundation Digger: Not Applicable OBJECTIVE & INTERVENTIONS PAIN Pain [...] status. Pt participatedin bed mobility, supine-sit and xmp-cchjy-owf transfers. They were able to progress to ambulation on level surfaces using a rolling walker. PT provided education to patient regarding safe walker management and reduced speed during turns. Verbal and tactile cues given to pt by PT for: postural alignment, weight shifting, improved biomechanics, safety, movement sequence, hand/foot placement, assistive device management, and appropriate activity pacing. BED MOBILITY Level of Clive Physical/Non- physical Assist Adaptive Equipment Utilized Rolling/ Turning Stand-by assist (to the right) Set-up required, Verbal Cues, Nonverbal cues (demo/gestures), Minimal cues Bed rails Scooting/ Bridging Stand-by assist (anteriorly to EOB) Set-up required, Supervision, Verbal Cues, Minimal cues Supine to Sit Contact guard (to the right) Set-up required, Verbal Cues, Nonverbal cues (demo/gestures), Minimal cues, HOB elevated Bed rails TRANSFERS Level of Clive Physical/Non- physical Assist Adaptive Equipment Utilized Sit to Stand Contact guard Set-up required, Verbal Cues, Nonverbal cues (demo/gestures), Minimal cues, 1 person + 1 person to manage equipment Walker, rolling Stand to sit Contact guard Verbal Cues, Nonverbal cues (demo/gestures), Minimal cues, 1 person + 1 person to manage equipment Walker, rolling BALANCE Postural Appearance Posture: Within Functional Limits Level of Clive Balance Support Facilitated Activities Static Sit Standby [...] shifts, Reaching for objects AMBULATION Level of Clive Distance Adaptive Equipment Utilized Ambulation Contact guard assist, Minimal verbal cues, Minimal tactile cues, Additional assist needed for line management 320' with one seated rest break Rolling walker Comments PT fitted pt with RW to prepare for safe ambulation. PT presence was necessary for: * decreasing patient's risk of falling while progressing pt's distances Standardized Assessments [facility] 6-Clicks Mobility Assessment Difficulty patient has turning [...] 3-5 steps with a railing?: A lot [facility] 6-Clicks Mobility Assessment Total : 18 ASSESSMENT [...] PM. * Progress Notes - Romana Madden - 01/14/2025 11:21 AM EDT Occupational Therapy Treatment Patient Name: Dagoberto Islas Today's Date: 01/14/2025 Total Treatment Time: 24 minutes OT Discharge Recommendations: Home with 24 hour assistance, Home health PT Equipment Recommended: Patient owns appropriate equipment Subjective Patient agreeable to OT session. Participants in Care Family/Caregiver Present: No Foundation Digger: Not Applicable Presentation Oxygen Therapy: Supplemental oxygen [...] Mobility Bed Mobility Exam: Rolling/Turning Level of Clive: Stand-by assist (to the right) Physical/Nonphysical Assist: Set-up required, Verbal Cues, Nonverbal cues (demo/gestures), Minimal cues Assistive Device: Bed rails Bed Mobility Exam: Scooting/Bridging Level of Clive: Stand-by assist (anteriorly to EOB) Physical/Nonphysical Assist: Set-up required, Supervision, Verbal Cues, Minimal cues Bed Mobility Exam: Supine to Sit Level of Clive: Contact guard (to the right) Physical/Nonphysical Assist: Set-up required, Verbal Cues, Nonverbal cues (demo/gestures), Minimal cues, HOB elevated Assistive Device: Bed rails Transfers Transfer Exam: Sit to stand Level of Clive: Contact guard Physical/Nonphysical Assist: Set-up required, Verbal Cues, Nonverbal cues (demo/gestures), Minimal cues, 1 person + 1 person to manage equipment Assistive Device: Walker, rolling Transfer Exam: Stand to Sit Level of Clive: Contact guard Physical/Nonphysical Assist: Verbal Cues, Nonverbal [...] with pe rsonal toileting routines. Standardized Assessments [facility] 6-Click Daily Activities Help from Other: Don/Doff Regular Lower Body Clothings: None Help From Other: Bathing: Little Help From Other: Toileting: Little Help From Other: Don/Doff Upper Body Clothings: None Help From Other: Grooming: Little Help From Other: Eating Meals: None [facility] 6 Click - Daily Activities Score: 21/24 [facility] Scoring Interpretation: Scores greater than 20.5 suggest [...] dressing with independence using AE as needed. weeks OT Goal 3: Patient will complete toilet transfers with modified independence. 01/12/25 2 weeks Written by Romana Madden on 01/14/25 at 12:50 PM. * Care Plan - Luke Styles, RN - 01/14/2025 10:13 AM EDT Problem: [...] Intervention: Optimize Sensory Function Flowsheets (Taken 01/14/2025 1010) Pressure Reduction Techniques: frequent weight shift encouraged Sensation Impairment Protection: cues provided for safety Skin Protection: protective footwear used Problem: Self-Care Deficit Goal: Improved Ability to Complete Activities of Daily Living Outcome: Ongoing, Progressing Intervention: Promote Activity and Functional Clive Flowsheets (Taken 01/14/2025 1010) Activity Assistance Provided: [...] Review Outcome: Ongoing, Progressing Flowsheets Taken 01/14/2025 030 by Belinda Stover RN Progress: improving Taken 01/13/2025 09 by Luke Styles RN Plan of Care [...] devices) on Intervention: Prevent Infection Flowsheets (Taken 01/14/2025300) Infection Prevention: cohorting utilized environmental surveillance performed equipment surfaces disinfected hand hygiene promoted personal protective equipment utilized rest/sleep promoted Goal: Optimal Comfort and Wellbeing Outcome: Ongoing, Progressing Intervention: Monitor Pain and Promote Comfort Flowsheets (Taken 01/14/2025300) Pain Management Interventions: wbypjx-kbh-kcoes dosing utilized Intervention: Provide Person-Centered Care Flowsheets (Taken 01/14/2025300) Trust Relationship/Rapport: care explained choices provided emotional support provided empathic listening provided questions encouraged Problem: Infection Goal: Absence of Infection Signs and Symptoms Outcome: Ongoing, Progressing Intervention: Prevent or Manage Infection Flowsheets (Taken 01/14/2025300) Infection Management: aseptic technique maintained Fever Reduction/Comfort Measures: lightweight clothing lightweight bedding Isolation Precautions: protective precautions maintained Problem: Fall Injury Risk Goal: Absence of Fall and Fall-Related Injury Outcome: Ongoing, Progressing Intervention: Identify and Manage Contributors Flowsheets (Taken 01/14/2025300) Medication Review/Management: medications reviewed Self-Care Promotion: independence [...] Balance and Safe Activity Flowsheets Taken 01/14/2025 0301 Activity Management: activity adjusted per tolerance activity [...] Progressing Intervention: Optimize Muscle Strength Flowsheets Taken 01/14/2025 030 Activity Management: activity adjusted per tolerance activity encouraged Adaptive Equipment Use: used independently Self-Care Promotion: independence encouraged BADL personal objects within reach BADL personal routines maintained Taken 01/13/20251999 Activity Assistance Provided: assistance, 1 person Goal: Compensation for Sensory Deficit Outcome: Ongoing, Progressing Intervention: Optimize Sensory Function Flowsheets Taken 01/14/2025 030 Pressure Reduction Techniques: frequent weight shift encouraged pressure points protected Sensation Impairment Protection: cues provided for safety Taken 01/13/20251999 Skin Protection: incontinence pads utilized Problem: Self-Care Deficit Goal: Improved Ability to Complete Activities of Daily Living Outcome: Ongoing, Progressing Intervention: Promote Activity and Functional Clive Flowsheets Taken 01/14/2025 030 Adaptive Equipment Use: used independently Self-Care Promotion: [...] Prevent or Manage Pain Flowsheets (Taken 01/14/2025 0301) Pain Management Interventions: gzpdhg-sme-xmglv dosing utilized Diversional Activities: smartphone television Goal: Optimal Stoma Healing and Function Outcome: Ongoing, Progressing Intervention: Monitor and Manage Stoma and Function Flowsheets (Taken 01/14/2025 0301) Urostomy Management: appliance integrity confirmed stoma output [...] Psychosocial Response to Surgery Flowsheets (Taken 01/13/2025 2158) Supportive Measures: active listening utilized positive reinforcement provided Problem: Urinary Diversion Goal: Optimal Stoma Healing and Function Outcome: Ongoing, Progressing Intervention: Monitor and Manage Stoma and Function Flowsheets (Taken 01/13/2025 0931 by Luke Styles RN) Urostomy Management: appliance integrity confirmed * Progress Notes - Zara Goodamn RN - 01/13/2025 1:36 PM EDT Images [...] Appliance 2 piece 01/13/25 1110 Site Assessment [place];Red 01/13/25 1132 Peristomal Assessment Unable to assess 01/13/25 1132 Treatment Site care;Placement checked 01/13/25 1021 Output (mL) 200 mL 01/13/25 1329 Zara Goodman RN 01/13/2025 1:36 PM * Progress Notes - Chen Loo RN - 01/13/2025 12:59 PM EDT Case Management Adult Initial Progress Note Grace Islas 69 y.o. male CSN: [id number] Admission: 01/11/2025 5:42 AM Primary Problem: Bladder cancer (CMS/HCC) Template Storage Clerk reviewed chart and spoke with patient at bedside to complete this Initial Case Management Assessment. PCP: Riley Hunter MD Emergency Contact: Extended Emergency Contact Information Primary Emergency Contact: Yolanda Vergara Mobile Relation: Daughter Foundation Digger needed? No Secondary Emergency Contact: TonnykieshaChastity Mobile Relation: Other Foundation Digger needed? No Insurance: Primary Visit Coverage Payer Plan Sponsor Code Group Number Group Name HUMANA MEDICARE HUMANA GOLD PLUS [id number] [facility] Primary Visit Coverage Subscriber Subscriber ID Subscriber Name Subscriber [facility] Subscriber Address [id number] GRACE ISLAS [id number] [address] [place] [address] Secondary Visit Coverage Payer Plan Sponsor Code Group Number Group Name MEDICAID-[facility] MEDICAID TRADITIONAL Secondary Visit Coverage Subscriber Subscriber ID Subscriber Name Subscriber N Subscriber Address [id number] GRACE ISLAS [id number] [address] [place] [address] Patient information: Primary Caregiver: Self Support System: Immediate family Daily Living Activities: Functional Status: Independent Living Arrangements: Spouse/Significant other Type of Residence: Private residence, Single Level [address] [place] [address] Current DME: Equipment Currently Used at Home: oxygen, nebulizer Current DME Provider: Katy Income Information: Income Source: Retired Housing Circumstances-Z Codes: Patient Referred to: Anticipated Discharge Date: 01/17/25 Patient's Discharge Goal: return home Assistance Available at Discharge: daughter Discharge Transport: daughter Follow Up Transport: daughter Home Health / Home Infusion / Outpatient Dialysis Services: Current DME Provider: Katy Living Will/Advance Directive/Power of Manager Of Radiology /Guardian: None reported. Additional Comments: Referral for HH PT/OT + SN sent to agencies via 6APT. CM introduced herself and explain its role. CM confirmed pt's home address and contact information.Pt lives with significant other, has nebulizer machine, oxygen w/ [employer] and doesn't have any HH services. Per pt's daughter, she will provide assistance as needed as well as transportation. In??s KUNAL Butts, conference services manager Social Drivers of Health Food Insecurity: [...] Score: 0 Utilities: Not At Risk (01/13/2025) [facility] Utilities Threatened with loss of utilities: No [...] Friends and Family: Not on file Attends [employer] Services: Not on file Active Member of [...] Ongoing, Progressing Intervention: Promote Activity and Functional Clive Flowsheets (Taken 01/13/2025930) Activity Assistance Provided: assistance, [...] Andujar DO - 01/13/2025 7:00 AM EDT [facility] Urology Inpatient Progress Note Primary Attending: Dejuan [...] 1 Location: LUQ Size (Fr.): (c) Drain [place] Size (mL): 100 mL Urostomy RUQ (Active) Placement Date/Time: 01/11/25 1224 Inserted by: MD Ruthie Hand Hygiene Completed: Yes Location: RUQ GEN: NAD HEENT: NCAT, EOMI RESP: Equal bilateral chest rise, normal work of breathing CV: Regular rate, appears well perfused ABD: Nondistended, incisions C/D/I : urostomy pink and patent, aquarium specialist stents in place draining clear yellow [...] demonstrating appropriate postoperative changes wbc 8 (8.75), hgb7.2 (8.6), cr trending down 0.73 (0.92). Urostomy with appropriate output. PLAN: -FLD, boosts -DC central line -SCD -Continue aquarium specialist stents -IS -Encourage OOB, ambulation -PT/OT [...] Intervention: Prevent or Manage Infection Flowsheets (Taken 01/12/2025 0951 by Luke Styles, RN) Infection Management: aseptic [...] Ongoing, Progressing Intervention: Promote Activity and Functional Clive Flowsheets (Taken 01/12/2025 0951 by Luke Styles, RN) Self-Care Promotion: independence [...] 01/12/2025 4:30 PM * Progress Notes - Supa Housen R - 01/12/2025 9:58 AM EDT Physical Therapy Evaluation Patient Name: Dagoberto Islas Today's Date: 01/12/2025 PT Discharge Recommendations: Home with 24 hour assistance, Home health PT Equipment Recommended: Patient owns appropriate equipment History Grace Islas is 69 y.o. male admitted 01/11/2025 for work-up of Bladder cancer ([facility]). Problem List Active Hospital Problems Diagnosis Date Noted Malignant neoplasm of urinary bladder, unspecified site 01/11/2025 Bladder cancer ([facility]/HCC) 08/03/2024 Procedures 01/11/2025 Procedure(s): CYSTECTOMY Past Medical [...] help. Participants in Care Family/Caregiver Present: No Foundation Digger: Not Applicable Presentation Oxygen Therapy: Supplemental oxygen [...] admission Level of Mobility: Ambulatory- community Mobility Clive: Independent gait without device History of Falls: [...] Mobility Bed Mobility Exam: Rolling/Turning Level of Clive: Stand-by assist Physical/Nonphysical Assist: Set-up required, Verbal Cues Assistive Device: Bed rails Bed Mobility Exam: Scooting/Bridging Level of Clive: Contact guard (Seated scoot forward while seated EOB.) Physical/Nonphysical Assist: Set-up required, Verbal Cues Assistive Device: Bed rails Bed Mobility Exam: Supine to Sit Level of Clive: Contact guard Physical/Nonphysical Assist: Set-up required, Verbal Cues Assistive Device: Bed rails Transfers Transfer Exam: Sit to stand Level of Clive: Contact guard Physical/Nonphysical Assist: Set-up required, Verbal Cues Assistive Device: Walker, rolling Transfer Exam: Stand to Sit Level of Clive: Contact guard Physical/Nonphysical Assist: Set-up required, Verbal [...] occasional cues to maintain changes Standardized Assessments [facility] 6-Clicks Mobility Assessment Difficulty patient has turning [...] 3-5 steps with a railing?: A lot [facility] 6-Clicks Mobility Assessment Total : 17 Assessment [...] returning home with 24 hr assistance and HH PT. Patient may continue to benefit from [...] weeks Written by Najma House, Exam Candidate, #[id number] on 01/12/25 at 10:08 AM. Cosigned by Sandra Gandhi at 01/12/2025 3:45 PM EDT Associated attestation - Sandra Gandhi - 01/12/2025 3:45 PM EDT I have reviewed note written by Jania House, Physical Therapist NPTE candidate #[id number] and am in agreement with its content. Sandra Gandhi, PT * Progress Notes - Gareth Dixon - 01/12/2025 9:57 AM EDT OCCUPATIONAL THERAPY EVALUATION PATIENT DATA Patient Name Dagoberto Islas Session Date 01/12/2025 OT Discharge Recommendations Home with 24 hour assistance, Home health PT Equipment Recommendations Patient owns appropriate equipment Total treatment time 55 minutes HISTORY Grace Islas is 69 y.o. male admitted 01/11/2025 for work-up of Bladder cancer ([facility]). Hospital Course 1. Malignant neoplasm of urinary bladder, unspecified site ([facility]) Procedures (if applicable) 01/11/2025 Procedure(s): CYSTECTOMY Past [...] admission Level of Mobility Ambulatory- community Mobility Clive Independent gait without device History of Falls [...] also providing appropriate functional challenge. Level of Clive Adaptive Equipment Utilized Interventions Grooming Setup Chair [...] for sitting balance. BED MOBILITY Level of Clive Physical/Non-physical Assist Adaptive Equipment Utilized Rolling/ Turning Stand-by assist Set-up required, Verbal Cues Bed rails Scooting/ Bridging Contact guard (Seated scoot forward while seated EOB.) Set-up required, Verbal Cues Bed rails Supine to Sit Contact guard Set-up required, Verbal Cues Bed rails TRANSFERS Level of Clive Physical/Non- physical Assist Adaptive Equipment Utilized Sit to Stand Contact guard Set-up required, Verbal Cues Walker, rolling Stand to sit Contact guard Set-up required, Verbal Cues Walker, rolling BALANCE Level of Clive Balance Support Interventions Static Sit Standby assist [...] Anterior/Posterior weight shifts FUNCTIONAL MOBILITY Level of Clive Distance Adaptive Equipment Utilized Ambulation Contact guard assist (Min A to correct 1 LOB.) 100 feet Rolling walker STANDARDIZED ASSESSMENTS [facility] 6-Click Daily Activities Help from Other: Don/Doff Regular Lower Body Clothings: Little Help From Other: Bathing: Little Help From Other: Toileting: Little Help From Other: Don/Doff Upper Body Clothings: Little Help From Other: Grooming: Little Help From Other: Eating Meals: None [facility] 6 Click - Daily Activities Score: [...] comments) Intervention: Prevent Skin Injury Flowsheets (Taken 01/12/2025 0951) Body Position: weight shifting Skin Protection: protective [...] Andujar DO - 01/12/2025 7:30 AM EDT [facility] Urology Inpatient Progress Note Primary Attending: Dejuan Hendricks MD Procedure(s): cystectomy with ileal conduit creation (01/12) SUBJECTIVE: - patient states he is feeling well this AM, denies N/V. PHYSICAL EXAM: Temp: [36.4 ??C (97.6 ??F)-37 ??C (98.6 ??F)] 36.4 ??C (97.6 ??F) Heart Rate: [88-107] 88 Resp: [-] 18 BP: (110-129)/(53-79) 114/71 SpO2: [90 %-98 [...] 1 Location: LUQ Size (Fr.): (c) Drain [place] Size (mL): 100 mL Urostomy RUQ (Active) [...] incisions C/D/I : urostomy pink and patent, aquarium specialist stents in place draining clear yellow [...] Urostomy with appropriateoutput. PLAN: -CLD -SCD -Continue aquarium specialist stents -IS -Encourage OOB, ambulation -PT/OT [...] and Manage Fall Risk Flowsheets (Taken 01/12/2025 043) Safety Promotion/Fall Prevention: activity supervised assistive device/personal items within reach fall prevention program maintained clutter-free environment maintained Intervention: Prevent Skin Injury Flowsheets (Taken 01/12/2025431) Body Position: weight shifting Skin Protection: incontinence pads utilized Intervention: Prevent and Manage VTE (Venous Thromboembolism) Risk Flowsheets (Taken 01/12/2025 043) VTE Prevention/Management: SCDs (sequential compression devices) on medication Intervention: Prevent Infection Flowsheets (Taken 01/12/2025 043) Infection Prevention: hand hygiene promoted single patient room provided Goal: Optimal Comfort and Wellbeing Outcome: Ongoing, Progressing Intervention: Monitor Pain and Promote Comfort Flowsheets (Taken 01/12/2025431) Pain Management Interventions: medication (see MAR) Intervention: Provide Person-Centered Care Flowsheets (Taken 01/12/2025431) Trust Relationship/Rapport: care explained choices provided emotional [...] AM EDT Operative Note Date: 01/11/25 Location: [facility] Name: Dagoberto Islas, : 1955, Diagnoses: [...] Attending Surgeon(s): * Dejuan Hendricks - Primary Milk Handler(s): * Sebastian Vasquez MD - Resident - Assisting Anesthesia: General ASA: III Blood Administration: Blood Product Administration History None Estimated Blood Loss: 700 mL Drains: Closed/Suction Drain 1 LUQ (Active) Urostomy RUQ (Active) Urethral Catheter Non-latex 16 Fr. (Active) Implants Type Name Action Serial No. Stent STENT URETERAL DIVERSION FLEXI LT 7FR X 70CM - [id number] - [id number] Implanted [id number] Stent STENT URETERAL DIVERSION FLEXI LT 7FR X 70CM - [id number] - [id number] Implanted [id number] Specimen: Specimens ID Source Frozen? 1 Ureter, [...] pubic symphysis towards the umbilicus was made with a scalpel and carried down to the fascia. A midline fascial incision was made. The space of Retzius was entered with careful dissection and bluntly. The peritoneum was entered sharply at the superior level and the urachus was identified, clamped, and divided with LigaSure. A Elizaebth clamp and then 0 vicryl tie placed on the urachus so as to help us with traction on the bladder. The peritoneal cavity was inspected. No gross evidence of metastatic disease to the abdominal viscera was noted. There was significant amount of adhesions noted at this point with small bowel adhesions. We took these down sharply to aid in bowel retraction. [...] the distal limit was to node of [place] and the superior limit was the crossing [...] interrupted 4-0 monocryl suture over a 7 [place] banderstent which were brought out of the [...] not appear twisted on its mesentery. A [place] stoma was then developed using 4 2-0 [...] nursing note reviewed. Exam conducted with a technical systems architect present. Constitutional: General: He is not in [...] imaging results. Assessment & Plan Bladder cancer ([facility]) Malignant neoplasm of urinary bladder, unspecified site [...] 10 mL 10 mL Intravenous q12h Dejuan Hendricks MD And sodium chloride 0.9 % flush 10 mL 10 mL Intravenous PRN Dejuan Hendricks MD Cosigned by Dejuan Hendricks MD at 01/11/2025 8:33 AM EDT documented in this encounter Plan of Treatment Upcoming Encounters Date Type Department Care Team (Late st Contact Info) Description 02/08/2025 1:30 PM EST [facility] [address] [place] [address] Felicita Lindquist, JAILKEEPER [address] [place] [address] 08/04/2025 9:40 AM EDT Appointment [facility] [address] [place] [address] 08/04/2025 12:00 PM EDT Office Visit [facility] [address] [place] [address] Dejuan Hendricks MD [address] [place] [phone] 08/04/2025 12:00 PM EDT Clinical Support [facility] [address] [place] [address] Pending Results Name Type Priority Associated Diagnoses Date /Time Prepare Leukocyte Reduced RBC: 2 Units Blood Bank STAT 01/11/2025 9:29 AM EDT Scheduled Referrals Name Type Priority Associated Diagnoses Order Schedule Discharge Ambulatory referral to [facility] Outpatient Referral Routine Bladder tumor 1 Occurrences starting 01/13/2025 until 07/17/2026 documented as of this encounter Goals Goal Patient Goal Type Associated Problems Recent Progress Patient-Stated? Author Autogenerat ed Goal Care Plan Autogenerated Problem No Corrina Yolanda documented as of this encounter Procedures Procedure [...] PREPARE RBC STAT 01/11/2025 9:29 AM EDT MA CYSTECTOMY,ILEAL CONDUIT/SIGMOID BLADDER 01/11/2025 7:41 AM EDT Malignant neoplasm of urinary bladder, unspecified site TYPE AND SCREEN Routine 01/11/2025 7:40 AM EDT documented in this encounter Results * Phosphorus (01/15/2025 3:33 AM EDT) Phosphorus, Plasma 3.5 2.5 - 4.5 mg/dL 01/15/2025 4:09 AM EDT [facility] Blood Venous blood specimen / Unknown Venipuncture / Unknown 01/15/2025 3:33 AM EDT 01/15/2025 3:40 AM EDT us Dejuan Hendricks MD LAB BLOOD ORDERABLES Final Re sult Performing Organization Address [facility] Co de Phone Number [facility] [address] [place] [address] * (ABNORMAL) Magnesium (01/15/2025 3:33 AM EDT) Magnesium, Plasma 1.8(L) 1.9 - 2.4 mg/dL 01/15/2025 4:09 AM EDT [facility] Blood Venous blood specimen / Unknown Venipuncture / Unknown 01/15/2025 3:33 AM EDT 01/15/2025 3:40 AM EDT us Dejuan Hendricks MD LAB BLOOD ORDERABLES Final Re sult Performing Organization Address City/[facility]/ZIP Co de Phone Number [facility] [address] [place] [address] * (ABNORMAL) Comprehensive metabolic panel (01/15/2025 3:33 AM EDT) Glucose, Plasma 114(H) 74 - 99 mg/dL 01/15/2025 4:09 AM EDT [facility] BUN, Plasma 12 8 - 23 mg/dL 01/15/2025 4:09 AM EDT [facility] Creatinine, Plasma 0.70 0.70 - 1.20 mg/dL 01/15/2025 4:09 AM EDT [facility] BUN/Creatinine Ratio 17 01/15/2025 4:09 AM EDT [facility] Sodium, Plasma 136 136 - 145 mmol/L 01/15/2025 4:09 AM EDT [facility] Potassium, Plasma 4.2 3.6 - 4.9 mmol/L 01/15/2025 4:09 AM EDT [facility] Chloride, Plasma 99 97 - 107 mmol/L 01/15/2025 4:09 AM EDT [facility] CO2, Plasma 33(H) 22 - 29 mmol/L 01/15/2025 4:09 AM EDT [facility] Anion Gap 4(L) 6 - 16 mmol/L 01/15/2025 4:09 AM EDT [facility] Total Calcium, Plasma 8.7(L) 8.9 - 10.2 mg/dL 01/15/2025 4:09 AM EDT [facility] Total Protein 5.7(L) 6.3 - 7.9 g/dL 01/15/2025 4:09 AM EDT [facility] Albumin, Plasma 2.8(L) 3.5 - 5.2 g/dL 01/15/2025 4:09 AM EDT [facility] AST, Plasma 18 10 - 50 U/L 01/15/2025 4:09 AM EDT [facility] ALT, Plasma 18 10 - 50 U/L 01/15/2025 4:09 AM EDT [facility] Alkaline Phosphatase, Plasma 52 40 - 115 U/L 01/15/2025 4:09 AM EDT [facility] Total Bilirubin, Plasma <0.2(L) 0.2 - 1.1 mg/dL 01/15/2025 4:09 AM EDT [facility] eGFRcr 99.7 mL/min/1.7 3m*2 01/15/2025 4:09 AM EDT [facility] Comment:Reported eGFRcr in m L/min/1.73m2 is based the CKD-EPI 2020 equation that does not use a race coefficient. Blood Venous blood specimen / Unknown Venipuncture / Unknown 01/15/2025 3:33 AM EDT 01/15/2025 3:40 AM EDT us Dejuan Hendricks MD LAB BLOOD ORDERABLES Final Re sult [facility] [address] [place] [address] * (ABNORMAL) CBC W/O Differential (01/15/2025 3:33 AM EDT) WBC Count 9.66 3.70 - 10.30 10*3/uL LAB HEMATOLOGY METHOD 01/15/2025 3:51 AM EDT [facility] RBC Count 2.40(L) 4.60 - 6.10 10*6/uL LAB HEMATOLOGY METHOD 01/15/2025 3:51 AM EDT [facility] HGB 7.5(L) 13.7 - 17.5 g/dL LAB HEMATOLOGY METHOD 01/15/2025 3:51 AM EDT [facility] HCT 22.7(L) 40.0 - 51.0 % LAB HEMATOLOGY METHOD 01/15/2025 3:51 AM EDT [facility] Platelet Count 214 155 - 369 10*3/uL LAB HEMATOLOGY METHOD 01/15/2025 3:51 AM EDT [facility] MCV 95 79 - 98 fL LAB HEMATOLOGY METHOD 01/15/2025 3:51 AM EDT [facility] MCH 31.3 26.0 - 32.0 pg LAB HEMATOLOGY METHOD 01/15/2025 3:51 AM EDT [facility] MCHC 33.0 30.7 - 35.5 g/dL LAB HEMATOLOGY METHOD 01/15/2025 3:51 AM EDT [facility] RDW 15.8(H) 11.5 - 14.5 % LAB HEMATOLOGY METHOD 01/15/2025 3:51 AM EDT [facility] MPV 9.7 8.8 - 12.5 fL LAB HEMATOLOGY METHOD 01/15/2025 3:51 AM EDT [facility] nRBC 0.2(H) <=0.0 per 100 WBCs LAB HEMATOLOGY METHOD 01/15/2025 3:51 AM EDT [facility] Blood Venous blood specimen / Unknown Venipuncture / Unknown 01/15/2025 3:33 AM EDT 01/15/2025 3:40 AM EDT Dejuan Hendricks MD LAB BLOOD ORDERABLES Final Re sult Performing Organization Address [facility] Co de Phone Number [facility] [address] [place] [address] * Creatinine, Drain Fluid (01/14/2025 5:14 PM EDT) Creatinine, Fluid 0.70 mg/dL 01/14/2025 7:38 PM EDT [facility] Fluid Drainage fluid specimen / Unknown 01/14/2025 5:14 PM EDT 01/14/2025 6:18 PM EDT Narrative [facility] - 01/14/2025 7:38 PM EDT Reference Values: No established reference interval. Results should be interpreted in comparison to the concentration in blood and in conjunction with the clinical context. This test was developed and its performance characteristics determined by [facility]. The U.S. Food and Drug Administration has not approved or cleared this test; however, FDA clearance or approval is not currently required for clinical use. The results are not intended to be used as the sole means for clinical diagnosis or patient management decisions. Interpretation: A body fluid to plasma ratio >1.0 suggests the presence of urine in the sample. Dejuan Hendricks MD LAB BODY FLUIDS AND STOOLS OR DERABLES Final Result Performing Organization Address [facility] Co de Phone Number [facility] [address] [place] [address] * (ABNORMAL) Hemoglobin and Hematocrit, Blood (01/14/2025 1:21 PM EDT) HGB 9.1(L) 13.7 - 17.5 g/dL LAB HEMATOLOGY METHOD 01/14/2025 1:58 PM EDT [facility] HCT 28.3(L) 40.0 - 51.0 % LAB HEMATOLOGY METHOD 01/14/2025 1:58 PM EDT [facility] Blood Venous blood specimen / Unknown Venipuncture / Unknown 01/14/2025 1:21 PM EDT 01/14/2025 1:45 PM EDT Dejuan Hendricks MD LAB BLOOD ORDERABLES Final Re sult Performing Organization Address City/[facility]/ZIP Co de Phone Number [facility] [address] [place] [address] * Prepare Leukocyte Reduced RBC: 1 Units (01/14/2025 6:18 AM EDT) Product Code [id number] CH BLOO D BANK Dispense Status Transfused BLOOD BANK Blood Expiration Date [id number] BLOOD BANK Unit Number [id number] CH B LOOD BANK Product Blood Type 5100 BLOOD BANK Blood Type O+ BLOOD BANK Crossmatch Compatible BLOOD BANK Other us Dejuan Hendricks MD BLOOD BANK PRODUCT ORDERABLES Final Result Performing Organization Address [facility] de Phone Number BLOOD BANK [address] [place] [address], * Phosphorus (01/14/2025 2:00 AM EDT) Phosphorus, Plasma 2.6 2.5 - 4.5 mg/dL 01/14/2025 2:34 AM EDT [facility] Blood Venous blood specimen / Unknown Venipuncture / Unknown 01/14/2025 2:00 AM EDT 01/14/2025 2:05 AM EDT us Dejuan Hendricks MD LAB BLOOD ORDERABLES Final Re sult Performing Organization Address [facility] Co de Phone Number [facility] [address] [place] [address] * (ABNORMAL) Magnesium (01/14/2025 2:00 AM EDT) Magnesium, Plasma 1.5(L) 1.9 - 2.4 mg/dL 01/14/2025 2:34 AM EDT [facility] Blood Venous blood specimen / Unknown Venipuncture / Unknown 01/14/2025 2:00 AM EDT 01/14/2025 2:05 AM EDT us Dejuan Hendricks MD LAB BLOOD ORDERABLES Final Re sult [facility] [address] [place] [address] * (ABNORMAL) Comprehensive metabolic panel (01/14/2025 2:00 AM EDT) Glucose, Plasma 109(H) 74 - 99 mg/dL 01/14/2025 2:34 AM EDT [facility] BUN, Plasma 11 8 - 23 mg/dL 01/14/2025 2:34 AM EDT [facility] Creatinine, Plasma 0.64(L) 0.70 - 1.20 mg/dL 01/14/2025 2:34 AM EDT [facility] BUN/Creatinine Ratio 17 01/14/2025 2:34 AM EDT [facility] Sodium, Plasma 139 136 - 145 mmol/L 01/14/2025 2:34 AM EDT [facility] Potassium, Plasma 3.8 3.6 - 4.9 mmol/L 01/14/2025 2:34 AM EDT [facility] Chloride, Plasma 104 97 - 107 mmol/L 01/14/2025 2:34 AM EDT [facility] CO2, Plasma 31(H) 22 - 29 mmol/L 01/14/2025 2:34 AM EDT [facility] Anion Gap 4(L) 6 - 16 mmol/L 01/14/2025 2:34 AM EDT [facility] Total Calcium, Plasma 8.1(L) 8.9 - 10.2 mg/dL 01/14/2025 2:34 AM EDT [facility] Total Protein 5.1(L) 6.3 - 7.9 g/dL 01/14/2025 2:34 AM EDT [facility] Albumin, Plasma 2.7(L) 3.5 - 5.2 g/dL 01/14/2025 2:34 AM EDT [facility] AST, Plasma 20 10 - 50 U/L 01/14/2025 2:34 AM EDT [facility] ALT, Plasma 19 10 - 50 U/L 01/14/2025 2:34 AM EDT [facility] Alkaline Phosphatase, Plasma 49 40 - 115 U/L 01/14/2025 2:34 AM EDT [facility] Total Bilirubin, Plasma <0.2(L) 0.2 - 1.1 mg/dL 01/14/2025 2:34 AM EDT [facility] eGFRcr 102.5 mL/min/1.7 3m*2 01/14/2025 2:34 AM EDT [facility] Comment:Reported eGFRcr in m L/min/1.73m2 is based the CKD-EPI 2020 equation that does not use a race coefficient. Blood Venous blood specimen / Unknown Venipuncture / Unknown 01/14/2025 2:00 AM EDT 01/14/2025 2:05 AM EDT Dejuan Hendricks MD LAB BLOOD ORDERABLES Final Re sult [facility] [address] [place] [address] * (ABNORMAL) CBC W/O Differential (01/14/2025 2:00 AM EDT) WBC Count 8.24 3.70 - 10.30 10*3/uL LAB HEMATOLOGY METHOD 01/14/2025 2:18 AM EDT [facility] RBC Count 2.02(L) 4.60 - 6.10 10*6/uL LAB HEMATOLOGY METHOD 01/14/2025 2:18 AM EDT [facility] HGB 6.4(LL) 13.7 - 17.5 g/dL LAB HEMATOLOGY METHOD 01/14/2025 2:18 AM EDT [facility] HCT 19.8(L) 40.0 - 51.0 % LAB HEMATOLOGY METHOD 01/14/2025 2:18 AM EDT [facility] Platelet Count 140(L) 155 - 369 10*3/uL LAB HEMATOLOGY METHOD 01/14/2025 2:18 AM EDT [facility] MCV 98 79 - 98 fL LAB HEMATOLOGY METHOD 01/14/2025 2:18 AM EDT [facility] MCH 31.7 26.0 - 32.0 pg LAB HEMATOLOGY METHOD 01/14/2025 2:18 AM EDT [facility] MCHC 32.3 30.7 - 35.5 g/dL LAB HEMATOLOGY METHOD 01/14/2025 2:18 AM EDT [facility] RDW 14.7(H) 11.5 - 14.5 % LAB HEMATOLOGY METHOD 01/14/2025 2:18 AM EDT [facility] MPV 9.4 8.8 - 12.5 fL LAB HEMATOLOGY METHOD 01/14/2025 2:18 AM EDT [facility] nRBC 0.0 <=0.0 per 100 WBCs LAB HEMATOLOGY METHOD 01/14/2025 2:18 AM EDT [facility] Blood Venous blood specimen / Unknown Venipuncture / Unknown 01/14/2025 2:00 AM EDT 01/14/2025 2:05 AM EDT us Dejuan Hendricks MD LAB BLOOD ORDERABLES Final Re sult Performing Organization Address City/[facility]/ZIP Co de Phone Number [facility] [address] [place] [address] * (ABNORMAL) Phosphorus (01/13/2025 4:54 AM EDT) Phosphorus, Plasma 2.2(L) 2.5 - 4.5 mg/dL 01/13/2025 5:30 AM EDT [facility] Blood Venous blood specimen / Unknown Venipuncture / Unknown 01/13/2025 4:54 AM EDT 01/13/2025 5:01 AM EDT us Dejuan Hendricks MD LAB BLOOD ORDERABLES Final Re sult Performing Organization Address City/[facility]/ZIP Co de Phone Number [facility] [address] [place] [address] * Magnesium (01/13/2025 4:54 AM EDT) Magnesium, Plasma 1.9 1.9 - 2.4 mg/dL 01/13/2025 5:30 AM EDT [facility] Blood Venous blood specimen / Unknown Venipuncture / Unknown 01/13/2025 4:54 AM EDT 01/13/2025 5:01 AM EDT Dejuan Hendricks MD LAB BLOOD ORDERABLES Final Re sult [facility] [address] [place] [address] * (ABNORMAL) Comprehensive metabolic panel (01/13/2025 4:54 AM EDT) Glucose, Plasma 98 74 - 99 mg/dL 01/13/2025 5:30 AM EDT [facility] BUN, Plasma 14 8 - 23 mg/dL 01/13/2025 5:30 AM EDT [facility] Creatinine, Plasma 0.73 0.70 - 1.20 mg/dL 01/13/2025 5:30 AM EDT [facility] BUN/Creatinine Ratio 19 01/13/2025 5:30 AM EDT [facility] Sodium, Plasma 138 136 - 145 mmol/L 01/13/2025 5:30 AM EDT [facility] Potassium, Plasma 4.7 3.6 - 4.9 mmol/L 01/13/2025 5:30 AM EDT [facility] Chloride, Plasma 104 97 - 107 mmol/L 01/13/2025 5:30 AM EDT [facility] CO2, Plasma 32(H) 22 - 29 mmol/L 01/13/2025 5:30 AM EDT [facility] Anion Gap 2(L) 6 - 16 mmol/L 01/13/2025 5:30 AM EDT [facility] Total Calcium, Plasma 8.4(L) 8.9 - 10.2 mg/dL 01/13/2025 5:30 AM EDT [facility] Total Protein 5.4(L) 6.3 - 7.9 g/dL 01/13/2025 5:30 AM EDT [facility] Albumin, Plasma 2.9(L) 3.5 - 5.2 g/dL 01/13/2025 5:30 AM EDT [facility] AST, Plasma 30 10 - 50 U/L 01/13/2025 5:30 AM EDT [facility] ALT, Plasma 29 10 - 50 U/L 01/13/2025 5:30 AM EDT [facility] Alkaline Phosphatase, Plasma 45 40 - 115 U/L 01/13/2025 5:30 AM EDT [facility] Total Bilirubin, Plasma 0.2 0.2 - 1.1 mg/dL 01/13/2025 5:30 AM EDT [facility] eGFRcr 98.5 mL/min/1.7 3m*2 01/13/2025 5:30 AM EDT [facility] Comment:Reported eGFRcr in m L/min/1.73m2 is based the CKD-EPI 2020 equation that does not use a race coefficient. Blood Venous blood specimen / Unknown Venipuncture / Unknown 01/13/2025 4:54 AM EDT 01/13/2025 5:01 AM EDT Dejuan Hendricks MD LAB BLOOD ORDERABLES Final Re sult [facility] [address] [place] [address] * (ABNORMAL) CBC W/O Differential (01/13/2025 4:54 AM EDT) WBC Count 8.00 3.70 - 10.30 10*3/uL LAB HEMATOLOGY METHOD 01/13/2025 5:14 AM EDT [facility] RBC Count 2.26(L) 4.60 - 6.10 10*6/uL LAB HEMATOLOGY METHOD 01/13/2025 5:14 AM EDT [facility] HGB 7.2(L) 13.7 - 17.5 g/dL LAB HEMATOLOGY METHOD 01/13/2025 5:14 AM EDT [facility] HCT 22.3(L) 40.0 - 51.0 % LAB HEMATOLOGY METHOD 01/13/2025 5:14 AM EDT [facility] Platelet Count 147(L) 155 - 369 10*3/uL LAB HEMATOLOGY METHOD 01/13/2025 5:14 AM EDT [facility] MCV 99(H) 79 - 98 fL LAB HEMATOLOGY METHOD 01/13/2025 5:14 AM EDT [facility] MCH 31.9 26.0 - 32.0 pg LAB HEMATOLOGY METHOD 01/13/2025 5:14 AM EDT [facility] MCHC 32.3 30.7 - 35.5 g/dL LAB HEMATOLOGY METHOD 01/13/2025 5:14 AM EDT [facility] RDW 15.1(H) 11.5 - 14.5 % LAB HEMATOLOGY METHOD 01/13/2025 5:14 AM EDT [facility] MPV 9.8 8.8 - 12.5 fL LAB HEMATOLOGY METHOD 01/13/2025 5:14 AM EDT [facility] nRBC 0.0 <=0.0 per 100 WBCs LAB HEMATOLOGY METHOD 01/13/2025 5:14 AM EDT [facility] Blood Venous blood specimen / Unknown Venipuncture / Unknown 01/13/2025 4:54 AM EDT 01/13/2025 5:01 AM EDT us Dejuan Hendricks MD LAB BLOOD ORDERABLES Final Re sult [facility] [address] [place] [address] * (ABNORMAL) POCT glucose meter (01/12/2025 12:25 PM EDT) POCT Glucose 114(H) 74 - 99 mg/dL [...] Comment 01/12/2025 12:26 PM EDT [facility] [employer] ID Lanette Mercedes 01/12/2025 12:26 PM EDT [facility] Device ID [id number] 01/12/2025 12:26 PM EDT [facility] Specimen Type POC Capillary 01/12/2025 12:26 PM EDT [facility] Blood Capillary blood specimen / Unknown 01/12/2025 12:25 PM EDT 01/12/2025 12:26 PM EDT Dejuan Hendricks MD LAB POINT OF CARE TE ST DOCKED DEVICE UNSOLICITED RESULTS Final Result Performing Organization Address City/[facility] Co de Phone Number [facility] [address] [place] [address] * (ABNORMAL) POCT glucose meter (01/12/2025 5:18 AM EDT) [facility] POCT Glucose 127(H) 74 - 99 mg/dL [...] for testing. Comment 01/12/2025 5:20 AM EDT [facility] [employer] ID Ivelisse Desai 025 5:20 AM EDT [facility] Device ID [id number] 01/12/2025 5:20 AM EDT [facility] Specimen Type POC Capillary 01/12/2025 5:20 AM EDT [facility] Blood Capillary blood specimen / Unknown 01/12/2025 5:18 AM EDT 01/12/2025 5:20 AM EDT us Dejuan Hendricks MD LAB POINT OF CARE TE ST DOCKED DEVICE UNSOLICITED RESULTS Final Result Performing Organization Address City/[facility]/ZIP Co de Phone Number [facility] [address] [place] [address] * (ABNORMAL) Basic Metabolic Panel, Plasma (01/12/2025 4:52 AM EDT) Glucose, Plasma 120(H) 74 - 99 mg/dL 01/12/2025 5:44 AM EDT [facility] BUN, Plasma 22 8 - 23 mg/dL 01/12/2025 5:44 AM EDT [facility] Creatinine, Plasma 0.92 0.70 - 1.20 mg/dL 01/12/2025 5:44 AM EDT [facility] BUN/Creatinine Ratio 24 01/12/2025 5:44 AM EDT [facility] Sodium, Plasma 136 136 - 145 mmol/L 01/12/2025 5:44 AM EDT [facility] Potassium, Plasma 6.2(H) 3.6 - 4.9 mmol/L 01/12/2025 5:44 AM EDT [facility] Chloride, Plasma 105 97 - 107 mmol/L 01/12/2025 5:44 AM EDT [facility] CO2, Plasma 25 22 - 29 mmol/L 01/12/2025 5:44 AM EDT [facility] Anion Gap 6 6 - 16 mmol/L 01/12/2025 5:44 AM EDT [facility] Total Calcium, Plasma 8.2(L) 8.9 - 10.2 mg/dL 01/12/2025 5:44 AM EDT [facility] eGFRcr 90.0 mL/min/1.7 3m*2 01/12/2025 5:44 AM EDT [facility] Comment:Reported eGFRcr in m L/min/1.73m2 is based the CKD-EPI 2020 equation that does not use a race coefficient. Blood Venous blood specimen / Unknown Venipuncture / Unknown 01/12/2025 4:52 AM EDT 01/12/2025 5:10 AM EDT us Dejuan Hendricks MD LAB BLOOD ORDERABLES Final Re sult [facility] [address] [place] [address] * (ABNORMAL) CBC W/O Differential (01/12/2025 4:52 AM EDT) WBC Count 8.75 3.70 - 10.30 10*3/uL LAB HEMATOLOGY METHOD 01/12/2025 5:23 AM EDT [facility] RBC Count 2.75(L) 4.60 - 6.10 10*6/uL LAB HEMATOLOGY METHOD 01/12/2025 5:23 AM EDT [facility] HGB 8.6(L) 13.7 - 17.5 g/dL LAB HEMATOLOGY METHOD 01/12/2025 5:23 AM EDT [facility] HCT 26.8(L) 40.0 - 51.0 % LAB HEMATOLOGY METHOD 01/12/2025 5:23 AM EDT [facility] Platelet Count 179 155 - 369 10*3/uL LAB HEMATOLOGY METHOD 01/12/2025 5:23 AM EDT [facility] MCV 98 79 - 98 fL LAB HEMATOLOGY METHOD 01/12/2025 5:23 AM EDT [facility] MCH 31.3 26.0 - 32.0 pg LAB HEMATOLOGY METHOD 01/12/2025 5:23 AM EDT [facility] MCHC 32.1 30.7 - 35.5 g/dL LAB HEMATOLOGY METHOD 01/12/2025 5:23 AM EDT [facility] RDW 15.0(H) 11.5 - 14.5 % LAB HEMATOLOGY METHOD 01/12/2025 5:23 AM EDT [facility] MPV 9.7 8.8 - 12.5 fL LAB HEMATOLOGY METHOD 01/12/2025 5:23 AM EDT [facility] nRBC 0.0 <=0.0 per 100 WBCs LAB HEMATOLOGY METHOD 01/12/2025 5:23 AM EDT [facility] Blood Venous blood specimen / Unknown Venipuncture / Unknown 01/12/2025 4:52 AM EDT 01/12/2025 5:15 AM EDT us Dejuan Hendricks MD LAB BLOOD ORDERABLES Final Re sult [facility] [address] [place] [address] * (ABNORMAL) POCT glucose meter (01/12/2025 12:11 AM EDT) [facility] POCT Glucose 129(H) 74 - 99 mg/dL [...] for testing. Comment 01/12/2025 12:12 AM EDT [facility] [employer] ID Ivelisse Desai 025 12:12 AM EDT [facility] Device ID [id number] 01/12/2025 12:12 AM EDT [facility] Specimen Type POC Capillary 01/12/2025 12:12 AM EDT [facility] Blood Capillary blood specimen / Unknown 01/12/2025 12:11 AM EDT 01/12/2025 12:12 AM EDT Dejuan Hendricks MD LAB POINT OF CARE TE ST DOCKED DEVICE UNSOLICITED RESULTS Final Result Performing Organization Address City/[facility]/ZIP Co de Phone Number [facility] [address] [place] [address] * (ABNORMAL) Ionized calcium, whole blood (01/11/2025 4:12 PM EDT) [facility] Ionized Calcium, Whole Blood 4.5(L) 4.6 - 5.1 mg/dL LAB HEMATOLOGY METHOD 01/11/2025 4:37 PM EDT [facility] Blood Arterial blood specimen / Unknown Venipuncture / Unknown 01/11/2025 4:12 PM EDT 01/11/2025 4:34 PM EDT us Dejuan Hendricks MD LAB BLOOD ORDERABLES Final Re sult [facility] [address] [place] [address] * (ABNORMAL) Basic metabolic panel (01/11/2025 3:15 PM EDT) [facility] Glucose, Plasma 117(H) 74 - 99 mg/dL 01/11/2025 3:55 PM EDT [facility] BUN, Plasma 13 8 - 23 mg/dL 01/11/2025 3:55 PM EDT [facility] Creatinine, Plasma 0.60(L) 0.70 - 1.20 mg/dL 01/11/2025 3:55 PM EDT [facility] BUN/Creatinine Ratio 22 01/11/2025 3:55 PM EDT [facility] Sodium, Plasma 145 136 - 145 mmol/L 01/11/2025 3:55 PM EDT [facility] Potassium, Plasma 3.1(L) 3.6 - 4.9 mmol/L 01/11/2025 3:55 PM EDT [facility] Chloride, Plasma 120(H) 97 - 107 mmol/L 01/11/2025 3:55 PM EDT [facility] CO2, Plasma 18(L) 22 - 29 mmol/L 01/11/2025 3:55 PM EDT [facility] Anion Gap 7 6 - 16 mmol/L 01/11/2025 3:55 PM EDT [facility] Total Calcium, Plasma 5.0(LL) 8.9 - 10.2 mg/dL 01/11/2025 3:55 PM EDT [facility] eGFRcr 104.5 mL/min/1.7 3m*2 01/11/2025 3:55 PM EDT [facility] Comment:Reported eGFRcr in m L/min/1.73m2 is based the CKD-EPI 2020 equation that does not use a race coefficient. Blood Venous blood specimen / Unknown Venipuncture / Unknown 01/11/2025 3:15 PM EDT 01/11/2025 3:22 PM EDT us Dejuan Hendricks MD LAB BLOOD ORDERABLES Final Re sult [facility] [address] [place] [address] * (ABNORMAL) CBC W/O Differential (01/11/2025 3:15 PM EDT) Pathologist [facility] WBC Count 8.38 3.70 - 10.30 10*3/uL LAB HEMATOLOGY METHOD 01/11/2025 3:28 PM EDT [facility] RBC Count 3.40(L) 4.60 - 6.10 10*6/uL LAB HEMATOLOGY METHOD 01/11/2025 3:28 PM EDT [facility] HGB 10.5(L) 13.7 - 17.5 g/dL LAB HEMATOLOGY METHOD 01/11/2025 3:28 PM EDT [facility] HCT 33.0(L) 40.0 - 51.0 % LAB HEMATOLOGY METHOD 01/11/2025 3:28 PM EDT [facility] Platelet Count 191 155 - 369 10*3/uL LAB HEMATOLOGY METHOD 01/11/2025 3:28 PM EDT [facility] MCV 97 79 - 98 fL LAB HEMATOLOGY METHOD 01/11/2025 3:28 PM EDT [facility] MCH 30.9 26.0 - 32.0 pg LAB HEMATOLOGY METHOD 01/11/2025 3:28 PM EDT [facility] MCHC 31.8 30.7 - 35.5 g/dL LAB HEMATOLOGY METHOD 01/11/2025 3:28 PM EDT [facility] RDW 15.1(H) 11.5 - 14.5 % LAB HEMATOLOGY METHOD 01/11/2025 3:28 PM EDT [facility] MPV 9.0 8.8 - 12.5 fL LAB HEMATOLOGY METHOD 01/11/2025 3:28 PM EDT [facility] nRBC 0.0 <=0.0 per 100 WBCs LAB HEMATOLOGY METHOD 01/11/2025 3:28 PM EDT [facility] Blood Venous blood specimen / Unknown Venipuncture / Unknown 01/11/2025 3:15 PM EDT 01/11/2025 3:21 PM EDT us Dejuan Hendricks MD LAB BLOOD ORDERABLES Final Re sult [facility] [address] [place] [address] * (ABNORMAL) Blood gas panel, arterial (01/11/2025 1:41 PM EDT) pH, Arterial 7.33 7.31 - 7.42 LAB HEMATOLOGY METHOD 01/11/2025 1:41 PM EDT [facility] pCO2, Arterial 50(H) 32 - 45 mmHg LAB HEMATOLOGY METHOD 01/11/2025 1:41 PM EDT [facility] pO2, Arterial 228 >80 mmHg LAB HEMATOLOGY METHOD 01/11/2025 1:41 PM EDT [facility] SO2, Measured, Arterial 100(H) 94 - 98 % LAB HEMATOLOGY METHOD 01/11/2025 1:41 PM EDT [facility] Base Excess, Arterial -0.2 -2.0 - 3.0 mmol/L LAB HEMATOLOGY METHOD 01/11/2025 1:41 PM EDT [facility] Bicarbonate, Calculated, Arterial 26 22 - 26 mmol/L LAB HEMATOLOGY METHOD 01/11/2025 1:41 PM EDT [facility] Hematocrit, Whole Blood 33.0(L) 40.0 - 51.0 % LAB HEMATOLOGY METHOD 01/11/2025 1:41 PM EDT [facility] Sodium, Whole Blood 140 136 - 145 mmol/L LAB HEMATOLOGY METHOD 01/11/2025 1:41 PM EDT [facility] Potassium, Whole Blood 4.5 3.6 - 4.9 mmol/L LAB HEMATOLOGY METHOD 01/11/2025 1:41 PM EDT [facility] Chloride, Whole Blood 106 97 - 107 mmol/L LAB HEMATOLOGY METHOD 01/11/2025 1:41 PM EDT [facility] Glucose, Whole Blood 131(H) 74 - 99 mg/dL LAB HEMATOLOGY METHOD 01/11/2025 1:41 PM EDT [facility] Ionized Calcium, Whole Blood 4.5(L) 4.6 - 5.1 mg/dL LAB HEMATOLOGY METHOD 01/11/2025 1:41 PM EDT [facility] Lactate, Arterial, Whole Blood 2.2(H) 0.5 - 1.6 mmol/L LAB HEMATOLOGY METHOD 01/11/2025 1:41 PM EDT [facility] Blood Arterial blood specimen / Unknown 01/11/2025 1:39 PM EDT us Geremias Salena Caballero CRNA LAB BLOOD ORDERABLES Final Result [facility] [address] [place] [address] * (ABNORMAL) Blood gas panel, arterial (01/11/2025 11:27 AM EDT) pH, Arterial 7.35 7.31 - 7.42 LAB HEMATOLOGY METHOD 01/11/2025 11:27 AM EDT [facility] pCO2, Arterial 51(H) 32 - 45 mmHg LAB HEMATOLOGY METHOD 01/11/2025 11:27 AM EDT [facility] pO2, Arterial 221 >80 mmHg LAB HEMATOLOGY METHOD 01/11/2025 11:27 AM EDT [facility] SO2, Measured, Arterial 100(H) 94 - 98 % LAB HEMATOLOGY METHOD 01/11/2025 11:27 AM EDT [facility] Base Excess, Arterial 1.4 -2.0 - 3.0 mmol/L LAB HEMATOLOGY METHOD 01/11/2025 11:27 AM EDT [facility] Bicarbonate, Calculated, Arterial 28(H) 22 - 26 mmol/L LAB HEMATOLOGY METHOD 01/11/2025 11:27 AM EDT [facility] Hematocrit, Whole Blood 33.0(L) 40.0 - 51.0 % LAB HEMATOLOGY METHOD 01/11/2025 11:27 AM EDT [facility] Sodium, Whole Blood 141 136 - 145 mmol/L LAB HEMATOLOGY METHOD 01/11/2025 11:27 AM EDT [facility] Potassium, Whole Blood 4.2 3.6 - 4.9 mmol/L LAB HEMATOLOGY METHOD 01/11/2025 11:27 AM EDT [facility] Chloride, Whole Blood 105 97 - 107 mmol/L LAB HEMATOLOGY METHOD 01/11/2025 11:27 AM EDT [facility] Glucose, Whole Blood 112(H) 74 - 99 mg/dL LAB HEMATOLOGY METHOD 01/11/2025 11:27 AM EDT [facility] Ionized Calcium, Whole Blood 4.7 4.6 - 5.1 mg/dL LAB HEMATOLOGY METHOD 01/11/2025 11:27 AM EDT [facility] Lactate, Arterial, Whole Blood 2.0(H) 0.5 - 1.6 mmol/L LAB HEMATOLOGY METHOD 01/11/2025 11:27 AM EDT [facility] Blood Arterial blood specimen / Unknown 01/11/2025 11:24 AM EDT us Geremias Caballero [facility] BLOOD ORDERABLES Final Result [facility] [address] [place] [address] * Surgical Pathology Exam (01/11/2025 9:54 AM EDT) Case Report Surgical Pathology Case: [id number] Authorizing Provider: Dejuan Hendricks MD Collected: 01/11/2025 0954 Ordering Location: [facility] Received: 01/11/2025 1000 Pathologist: Rosalind Neff MD Intraop: Sarthak Mendez MD Specimens: A) - Ureter, Right, Right Distal Ureter- Frozen B) - Ureter, Left, Left Distal Ureter- Frozen C) - Lymph Node (specify site):, Right Pelvic Lymph Nodes D) - Lymph Node (specify site):, Left Pelvic Lymph Nodes E) - Bladder 4:42 PM [facility] Addendum This addendum is to document the provided clinical history. There is no change in the final diagnosis. Malignant neoplasm of urinary bladder 4:42 PM [facility] Addendum electronically signed by Rochelle Marmolejo [...] INCIDENTAL ACINAR ADENOCARCINOMA, PROSTATE, GRADE GROUP 1 (KEIRY SCORE 3 + 3 = 6), INVOLVING < 5% OF PROSTATE, pT2, pN0. - MARGINS ARE NEGATIVE FOR TUMOR. - SEE SYNOPTIC CHECKLIST. 5 4:42 PM EST [facility] at 1214 EDT Comment:This is [...] (usual) Histologic Grade: Grade: Grade group 1 (Keiry Score 3 + 3 = 6) Intraductal [...] nodes submitted or found) 5 4:42 PM EST [facility] Clinical Information No Dx Found. 4:42 PM EST [facility] Comment:This is an appended report. These results have been appended to a previously preliminary verified report. Intraoperative Consultation A. RIGHT DISTAL URETER- FROZEN Negative for malignancy. B. LEFT DISTAL URETER- FROZEN NEGATIVE FOR CARCINOMA 5 4:42 PM [facility] Comment:Corrected result: Pr eviously reported as [...] ranging from 0.7-0.8 cm in greatest dimension. Break Up Worker sections are submitted as follows: C1 3 [...] ranging from 0.7-3.0 cm in greatest dimension. Break Up Worker sections are submitted as follows: D1 3 [...] apex to base by 3.0 cm from [id number] by 1.5 cm from anterior to posterior, [...] cut surface with no lesions grossly identified. Break Up Worker sections of specimen are submitted as follows: [...] 2h 25m Cherry Drake 5 4:42 PM EST [facility] Comment:This is an appended report. These results have been appended to a previously preliminary verified report. Note: A resident was involved in the service. I attest I examined the relevant preparations for the specimens and confirmed the diagnosis or interpretation. 5 4:42 PM EST [facility] Comment:This is an appended report. [...] of urinary bladder, unspecified site (CMS/HCC) [C67.9] Dejuan Hendricks MD LAB PATHOLOGY ORDERABLES Edit ed Result - Final [facility] [address] [place] [address] * Type and Screen (01/11/2025 7:40 AM EDT) ABO/Rh O Positive 01/11/2025 7:49 AM EDT [facility] Antibody Screen Negative 01/11/2025 7:49 AM EDT [facility] Specimen Expiration 01/14/2025 23:59 01/11/2025 7:49 AM EDT [facility] Blood Venous blood specimen / Unknown Venipuncture / Unknown 01/11/2025 7:40 AM EDT 01/11/2025 7:48 AM EDT us Geremias Caballero [employer] [facility] BLOOD BANK TEST ORDERA BLES Final Result BLOOD BANK [address] [place] [address], documented in this encounter Visit Diagnoses Diagnosis [...] Given 01/15/2025 12:38 AM EDT 1,000 mg apixaban (Eliquis) tablet 2.5 mg 2.5 [...] Given 01/13/2025 5:19 AM EDT 20 mg HYDROmorphone (Dilaudid) injection 0.5 mg 0.5 mg, Intravenous, Every 2 hour PRN, Starting on Sat01/11/25 at 1450, Until Sat01/15/25 at 1639, Routine, Recovery(Phase II-Outpatient)/On Unit(Inpatient), severe pain Given 01/11/2025 9:13 PM EDT 0.5 mg lidocaine (Lidoderm) 5 % patch 1 patch 1 patch, Apply externally, Every 24 hours, First dose on Sat01/11/25 at 1545, Until Discontinued, Administer over 12 Hours, Routine Medication Applied 01/14/2025 3:05 PM EDT 1 patch Abdominal Tissue Medication Applied 01/13/2025 3:21 PM EDT 1 patch Abdominal Tissue Medication Applied 01/12/2025 3:41 PM EDT 1 patch Abdominal Tissue methocarbamol (Robaxin) tablet 750 mg 750 mg, [...] Given 01/12/2025 12:12 AM EDT 5 mg propranolol (Inderal) tablet 10 mg 10 mg, [...] 1639, Routine, Recovery(Phase II-Outpatient)/On Unit(Inpatient), line care Tiotropium [place] Monohydrate (Spiriva Respimat) 2.5 MCG/ACT inhaler 2 [...] Provider: Shelby Winter)1119 (Given - Provider: Luke Styles, ADOLFO)1709 (Given - Provider: Luke Styles, ADOLFO) 0100 (Given - Provider: Tom Kang, ADOLFO)0637 (Given - Provider: Belinda Stover, ADOLFO)1119 (Not Given - Provider: Luke Styles, ADOLFO - Reason: Patient/family refused)1710 (Given - Provider: Luke Styles, ADOLFO) 0038 (Given - Provider: Belinda Stover, ADOLFO)0626 (Given - Provider: Belinda Stover, ADOLFO)1209 (Given - Provider: Kilo Dueñas RN) alvimopan (Entereg) capsule 12 mg (CANCELED) 12 mg, Oral, 2 times daily, First dose on Sat01/11/25 at 2100, Until Discontinued, Routine, Recovery(Phase II-Outpatient)/On Unit(Inpatient) 0815 (Given - Provider: Luke Styles, ADOLFO)2114 (Given - Provider: Belinda Stover, ADOLFO) apixaban [...] Shelby Winter) 0637 (Given - Provider: Belinda Stover RN) 0626 (Given - Provider: Belinda Stover RN) heparin (porcine) injection 5,000 Units (CANCELED) 5,000 Units, Subcutaneous, Every 8 hours scheduled, First dose on Sat01/11/25 at 1545, Until Discontinued, Routine, Recovery(Phase II-Outpatient)/On Unit(Inpatient) 0519 (Given - Provider: Shelby Winter)1325 (Given - Provider: Luke Styles, ADOLFO)211 (Given - Provider: Belinda Stover RN) 0637 (Given - Provider: Belinda Stover RN)1307 (Given - Provider: Luke Styles, ADOLFO)2038 (Given [...] ADOLFO) 0345 (Medication Removed - Provider: Belinda Stover RN)1505 (Medication Applied - Provider: Luke Styles RN) 0357 (Medication Removed - Provider: Belinda Stover RN)1545 (Canceled Entry [...] Routine 0626 (New Bag - Provider: Belinda Stover RN) methocarbamol (Robaxin) tablet 750 mg 750 mg, Oral, 4 times daily, First dose on Sat01/11/25 at 1800, Until Discontinued, Routine, Recovery(Phase II-Outpatient)/On Unit(Inpatient) 0815 (Given - Provider: Luke Styles RN)1325 (Given - Provider: Luke Styles RN)1709 (Given - Provider: Luke Styles RN)2116 (Given - Provider: Belinda Stover RN) 0753 (Given - Provider: Luke Styles RN)1307 (Given - Provider: Luke Styles RN)1710 (Given - Provider: Luke Styles RN)2036 (Given - Provider: Belinda Stover RN) 0826 (Given - Provider: Kilo Dueñas RN)1350 (Given - Provider: Kilo Dueñas RN) mometasone-formoterol (Dulera 200) 200-5 MCG/ACT inhaler 2 puff(Linked Group 1) 2 puff, Inhalation, 2 times daily, First dose on Sat01/11/25 at 2100, Until Discontinued, Recovery(Phase II-Outpatient)/On Unit(Inpatient) 0818 (Given - Provider: Luke Styles RN)2116 (Given - Provider: Belinda Stover RN) 0751 (Given - Provider: Luke Styles RN)2041 (Given - Provider: Belinda Stover RN) 0826 (Given - Provider: Kilo Dueñas RN) mupirocin (Bactroban) 2 % ointment 1 Application Each Nostril, 2 times daily, 10 doses, First dose on Sat01/12/25 at 0915, Last dose on Sat01/16/25 at 2100, Routine 0815 (Given - Provider: Luke Styles RN)211 (Given - Provider: Belinda Stover RN) 075 [...] Unit(Inpatient) 0815 (Given - Provider: Luke Styles RN)2115 (Given - Provider: Belinda Stover RN) 075 (Given - Provider: Luke Styles RN)2035 (Given - Provider: Belinda Stover RN) 0826 (Given - Provider: Kilo Dueñas RN) rOPINIRole (Requip) tablet 0.5 mg 0.5 mg, Oral, 3 times daily, First dose on Sat01/11/25 at 1600, Until Discontinued, Routine 0815 (Given - Provider: Luke Styles RN)1521 (Given - Provider: Luke Styles, ADOLFO)211 (Given - Provider: Belinda Stover RN) 075 (Given - Provider: Luke Styles RN)1505 (Given - Provider: Luke Styles, ADOLFO)203 (Given - Provider: Belinda Stover RN) 0825 (Given - Provider: Kilo Dueñas RN)1600 (Canceled Entry - Provider: Automatic Discharge Provider - Comment: Automatically canceled at discontinue of medication order) senna-docusate (Uzma-Colace) 8.6-50 MG per tablet 1 tablet 1 tablet, Oral, Nightly, First dose on Sat01/11/25 at 2100, Until Discontinued, Routine, Recovery(Phase II-Outpatient)/On Unit(Inpatient) 2114 (Given - Provider: Belinda Stover, ADOLFO) 2036 (Given - Provider: Belinda Stover, ADOLFO) sodium chloride 0.9 % flush 10 mL(Linked [...] 0648 (Given - Provider: Shelby Winter) Tiotropium [place] Monohydrate (Spiriva Respimat) 2.5 MCG/ACT inhaler 2 [...] Routine 0844 (New Bag - Provider: Luke Styles, ADOLFO)1334 (Rate/Dose Verify - Provider: Luke Styles RN) 0841 (Rate/Dose Change - Provider: Luke Styles RN)1713 (Stopped - Provider: Luke Styles RN) PRN Medication Order 01/13/2025 01/14/2025 01/15/2025 albuterol [...] care Linked Groups Order Group 1: Tiotropium [place] Monohydrate (Spiriva Respimat) 2.5 MCG/ACT inhaler 2 [...] documented as of this encounter Care Teams Field Representative/Health Education Relationship Specialty Start Date End Date Riley Hunter MD [address] [place], [place] [id number] PCP - General 04/22/24 documented as of this encounter
--- OUTSIDE RECORDS SUMMARY | 2025-01-11 06:56 | XMS_ITS | Encounter Summary ---
Author Organization Healthcare Address [address] [place] [address] Care Team Providers Care Surveillance Operator Name Role Phone Riley Hunter MD Primary Care Provider [phone] Reason for Visit * Auth/Cert (Routine) Specialty Diagnoses / Procedures Referred By Contac t Referred To Contact Diagnoses Malignant neoplasm of urinary bladder, unspecified site Malignant neoplasm of urinary bladder, unspecified site (CMS/HCC) [C67.9] Procedures ID CYSTECTOMY,ILEAL CONDUIT/SIGMOID BLADDER ID REMV PROSTATE,RETROPUB,RADICAL CYSTECTOMY Dejuan Hendricks MD [address] [facility] [address] [place] [address] Phone: tel: fax: [facility] [address] [place] [address] Phone: tel: Referral ID Status Reason Start Date Expiration Date Visits Re quested Visits Authorized [id number] 1 2 Encounter Details Date Type Department Care Team (Late st Contact Info) Description 01/11/2025 7:56 AM EDT Anesthesia Event [facility] [address] [place] [address] Dimitris Nielsen MD [facility] [address] [place] [address] Anesthesia Record Procedure Summary Procedure Name Responsible Anesthesiologist Anesthesia Start Time Anesthesia Stop Time CYSTECTOMY Dimitris Nielsen MD 01/11/25 0756 01/11/25 1439 Events Date Time Event Comment 01/11/2025 0756 In Room 0756 An Start The patient was reevaluated immediately before sedation and remains eligible for anesthesia plan. 0756 An Start Data 0801 An Induction The patient was reevaluated immediately before moderate or deep sedation use and before anesthesia induction. 0803 An Intubation 0805 Anesthesia Ready 0853 Jose Alejandro Time out 0857 Proc Start 1417 Proc Fin 1428 An Extubation 1428 an stop data 1429 Out of Room 1439 Handoff to Receiving I compl eted my handoff to the receiving clinician during which we: 1. Identified the patient 2. Identified the responsible provider 3. Reviewed the pertinent medical history 4. Discussed the surgical course 5. Reviewed intra-op anesthesia management and issues during anesthesia 6. Set expectations for post-procedure period 7. Allowed opportunity for questions and acknowledgement of understanding. 1439 An Stop Meds Name Total fentaNYL (Sublimaze) injection 50 mcg/mL 50 mcg propofol (Diprivan) injection 10 mg/mL 1 50 mg rocuronium (ZeMuron) injection 10 mg/mL 170 mg HYDROmorphone PF (Dilaudid) injection 1 mg/mL 1 mg ePHEDrine injection prefilled syringe 5 mg/mL 10 mg phenylephrine (Alexandre-Synephrine) prefilled syringe 1 mg/10 mL 1,600 mcg ondansetron (Zofran) injection 2 mg/mL 4 mg cefOXitin (Mefoxin) 2 g in s odium chloride 0.9% 100 mL IVPB (vial adapter required) 8 g ketamine (Ketalar) injection 10 mg/mL 50 mg 0.25% ropivacaine 60 mL remifentanil (Ultiva) 1 mg in sodium chl oride 0.9 % 100 mL infusion 2.29 mg labetalol (Normodyne,Trandate) injection 5 mg/mL 10 mg phenylephrine in 0.9% NaCl infusion 100 mcg/mL 7.44 mg lactated Ringer's infusion 2,000 mL sodium chloride 0.9 % infusion 644.33 mL electrolyte (Isolyte or Plasma-lyte) IV solution 1,000 mL * Agents Name O2 N2O Air Sevoflurane Isoflurane Desflurane Inspired Desflurane Inspired Isoflurane Inspired Sevoflurane N2O Inspired N2O * Blood No blood administrations on file. Lines, Drains, and Airways Type Details Placement Removal Wound 01/11/25; 0857; N; Y es; Surgical; Open Surg; Umbilicus 01/11/25 0857 by Karissa Johnson RN Urostomy 01/11/25; 1224; Yes; RUQ 5 1224 by Karissa Johnson RN Peripheral IV Placement Date: 01/11/25; Placement Time: 0630; Catheter Size: 20 G; Orientation: Posterior, Right; Location: Hand; Site Prep: Chlorhexidine ; Local Anesth: [place]; Technique: Anatomical landmarks; Inserted by: Meghan; Insertion Attempts: 1; Patient Tolerance: Tolerated well; Removal Date: 01/12/25 01/11/25 0630 by Shanti Hoyos RN 01/12/25 0000 by Fatmata Lockwood RN ETT Placement Date: 01/11/25; Placement Time: 0803 (created via procedure documentation); Technique: Direct laryngoscopy; Type: ETT - single; Single Lumen Tube Size: 7.5 mm; Cuffed: Yes; Laryngoscope: Cassandra; Location: Oral; Insertion Attempts: 1; Placement Verification: Auscultation, Capnometry; Airway Comments: Atraumatic. No change to dentition. ; Placed by: STRAW HAT MACHINE OPERATOR; Removal Date: 01/11/25; Removal Time: 1428 01/11/25 0803 by Geremias Caballero CRNA 01/11/25 1428 by Geremias Caballero CRNA Peripheral IV Placement Date: 01/11/25; Placement Time: 0805 (created via procedure documentation); Catheter Size: 18 G; Orientation: Left; Location: Hand; Local Anesth: None; Technique: Anatomical landmarks; Insertion Attempts: 1; Removal Date: 01/12/25; Removal Time: 0950; Removal Reason: Removed by patient 01/11/25 0805 by Geremias Caballero CRNA 01/12/25 0950 by Luke Styles RN CVC Triple Lumen Placement Date: 01/11/25; Placement Time: 0825 (created via procedure documentation); Hand Hygiene: Yes; Site Prep: Chlorhexidine ; Site Prep Agent Dried: Yes; Sterile Barrier Used: Yes; Size: 7 Fr; Description: Strict sterile technique maintained during placement ; Line Length(cm): 15; Orientation: Right; Location: Internal jugular; Placement Verification: Blood return, Ultrasound; Removal Date: 01/13/25; Removal Time: 1200; Removal Reason: Per order; Removal Cath Length: 15 cm 01/11/25 0825 by Geremias Caballero CRNA 01/13/25 1200 by Luke Styles RN Arterial Line Placement Date: 01/11/25; Placement Time: 0832 (created via procedure documentation); Size: 20 G; Orientation: Left; Location: Radial; Inserted by: CESARIO; Securement: Taped; Patient Tolerance: Tolerated well; Removal Date: 01/11/25; Removal Time: 1800; Removal Reason: Per protocol 01/11/25 0832 by Geremias Caballero CRNA 01/11/25 1800 by Jennifer Santos RN Urethral Catheter Placement Date: 01/11/25; Placement Time: 0908; Inserted by: Devon Mercedes MS3; Type: Non-latex; Size: 16 Fr.; Balloon Size: 10 mL; Urine Returned: Yes; Removal Date: 01/12/25; Removal Time: 1748; Removal Reason: Per order 01/11/25 0908 by Karissa Johnson RN 01/12/25 1748 by Luke Styles RN Closed/Suction Drain 01/11/25; 1433; 1; LUQ; (10mm flat drain) 01/11/25 1433 by Karissa Johnson RN 01/15/25 0000 by Kilo Dueñas RN documented in this encounter Social History Tobacco [...] any time in the past 12 m onths, were you homeless or living in a alf (including now)? No 01/13/2025 [facility] Utilities Answer Date Recorded In the [...] on file documented as of this encounter Functional Status * Calculated C-SSRS Risk Score (Lifetime/Recent) Answer Date of Assessment Author No Risk Indicated 01/11/2025 2:32 PM EDT Jennifer Santos RN * Question Answer Date of Assessment Author 1. Wish to be (Past 1 Month) No 01/11/2025 2:32 PM EDT Jennifer Santos RN 2. Non-Specific Active Suici cyndy Thoughts (Past 1 Month) No 01/11/2025 2:32 PM EDT Bulmaro Santos RN 6. Suicidal Behavior (Lifetime) No 2:32 PM EDT Jennifer Santos RN documented as of this encounter Miscellaneous Notes * Anesthesia Postprocedure Evaluation - Geremias Caballero CRNA - 01/11/2025 2:40 PM EDT Patient: Dagoberto Islas Anesthesia Type: general Vitals Value Taken Time BP 141/70 01/11/25 14:40 Temp 97.6 01/11/25 14:40 Pulse 95 01/11/25 14:40 Resp 16 01/11/25 14:40 SpO2 100 01/11/25 14:40 Anesthesia Post Evaluation Patient location during evaluation: PACU Patient participation: complete - patient participated Level of consciousness: awake Pain management: adequate (pain score 0-3) Airway patency: natural airway Cardiovascular status: acceptable and hemodynamically stable Respiratory status: acceptable, face mask and nonlabored ventilation Hydration status: acceptable Nausea/Vomiting: No No notable events documented. * Anesthesia Procedure Notes - Geremias Caballero CRNA - 01/11/2025 9:05 AM EDT Associated Order(s): Arterial Line Arterial Line: Date/Time: 01/11/2025 8:32 AM An arterial line was placed. Procedure performed using ultrasound guidance in the OR for the following indication(s): continuousblood pressure monitoring. A 20 gauge (size), 1 and 3/4 inch (length), Arrow (type) catheter was placed into the Left radial artery and secured by tape. Seldinger technique used Events: patient tolerated procedure well with no complications. Staffing Performed: STRAW HAT MACHINE OPERATOR STRAW HAT MACHINE OPERATOR: Geremias Caballero CRNA * Anesthesia Procedure Notes - Geremias Caballero CRNA - 01/11/2025 9:03 AM EDT Associated Order(s): Peripheral IV Peripheral IV Date/Time: 01/11/2025 8:05 AM Placement Needle size: 18 G Location: hand Local anesthetic: none Site prep: alcohol Technique: anatomical landmarks Attempts: 1 * Anesthesia Procedure Notes - Joseph Easton MD - 01/11/2025 8:44 AM EDT Associated Order(s): Peripheral Block Peripheral Block Patient location during procedure: OR Reason for block: post-op pain management Block is at surgeon's request Staffing Performed: Resident Anesthesiologist: Talha Chi MD Resident: Joseph Easton MD Preanesthetic Checklist Completed: patient identified, IV checked, site marked, risks and benefits discussed, surgical consent, monitors and equipment checked, pre-op evaluation and timeout performed Peripheral Block Patient position: supine Prep: ChloraPrep Patient monitoring: continuous pulse ox, heart rate and quality assurance monitor body Block type: TAP Laterality: right and left Injection technique: single-shot Guidance: ultrasound guided Ultrasound used for needle placement AND ultrasound image retained Needle Needle type: 20 G. Needle localization: anatomical landmarks and ultrasound guidance Medications Administered: 0.25% ropivacaine - Injection 60 mL - 01/11/2025 8:10:00 AM Assessment Injection assessment: negative aspiration for heme, local visualized surrounding nerve on ultrasound and incremental injection Paresthesia pain: none Heart rate change: no Slow fractionated injection: yes Cosigned by Talha Chi MD at 01/11/2025 6:31 PM EDT Associated attestation - Talha Chi MD - 01/11/2025 6:31 PM EDT I was present during all critical and spanglre portions of the procedure(s) and immediately available [facility] the entire duration. See resident note for details. * Anesthesia Procedure Notes - Geremias Caballero CRNA - 01/11/2025 8:41 AM EDT Associated Order(s): Central Venous Line Central Venous Line: Date/Time: 01/11/2025 8:25 AM A central venous line was placed in the OR for the following indication(s): central venous access. Sterility preparation included the following: provider hand hygiene performed prior to central venous catheter insertion, all 5 sterile barriers used (gloves, gown, cap, mask, large sterile drape) during central venous catheter insertion, antiseptic used during central venous catheter insertion andskin prep agent completely dried prior to procedure. The patient was placed in Trendelenburg position. Right internal jugular vein was prepped. The site was prepped with Chlorhexidine. A 7 Fr (size), 15 (length), introducer triple lumen was placed. This catheter was not an oximetric catheter. During the procedure, the following specific steps were taken: target vein identified, needle advanced into vein and blood aspirated and guidewire advanced into vein. Seldinger technique used Procedure performed using ultrasound guidance Sterile gel and probe cover used in ultrasound-guided central venous catheter insertion. Intravenous verification was obtained by ultrasound, venous blood return and manometry. Post insertion care included: all ports aspirated, all ports flushed easily, guidewire removed intact, Biopatch applied, line sutured in place and dressing applied. Additional notes: Strict sterile technique maintained during placement Staffing Performed: STRAW HAT MACHINE OPERATOR STRAW HAT MACHINE OPERATOR: Geremias Caballero CRNA * Anesthesia Procedure Notes - Geremias Caballero CRNA - 01/11/2025 8:14 AM EDT Associated Order(s): Airway Airway Date/Time: 01/11/2025 8:03 AM Reason: elective Airway not difficult General Information and Staff Patient location during procedure: OR STRAW HAT MACHINE OPERATOR: Geremias Caballero CRNA Performed: STRAW HAT MACHINE OPERATOR Patient Condition Indications for airway management: anesthesia Patient position: sniffing Final Airway Details Final airway type: endotracheal airway Successful airway: ETT Cuffed: yes Successful intubation technique: direct laryngoscopy Adjuncts used in placement: intubating stylet Endotracheal tube insertion site: oral Blade: Cassandra ETT size (mm): 7.5 Placement verified by: chest auscultation and capnometry Cuff volume (mL): 8 Measured from: lips ETT to lips (cm): 22 Additional Comments Atraumatic. No change to dentition. * Anesthesia Preprocedure Evaluation - Dimitris Nielsen MD - 01/11/2025 6:51 AM EDT Images from the original note were not included. Patient: Dagoberto Islas HPI Ronaldo Islas is a 69 y.o. male with body mass index is 28.48 kg/m??. who presents with Bladder cancer (CMS/HCC), now for CYSTECTOMY (N/A) Procedure Information Date/Time: 01/11/25 0745 Procedure: CYSTECTOMY Location: [facility] Surgeons: Dejuan Hendricks MD Relevant Problems Cardio (+) Bilateral carotid artery stenosis GI (+) Gastroesophageal reflux disease without esophagitis (+) Obesity, unspecified (+) Partial small bowel obstruction /Renal (+) Gross hematuria Neuro/Psych (+) Chronic post-traumatic headache, not intractable (+) S/P colon resection Pulmonary (+) COPD exacerbation (CMS/HCC) (+) Chronic obstructive pulmonary disease with (acute) exacerbation (CMS/HCC) Other (+) Generalized enlarged lymph nodes On home O2 ALLERGIES Allergies[1] NPO STATUS Date of Last Liquid: 01/10/25 Time of Last Liquid: 2329 Date of Last Solid: 01/10/25 Time of Last Solid: 2329 Time of Last Void: 06 Past Medical History[2] AIRWAY HISTORY Airway Detailed Review Displaying the 20 most recent records Date Difficult Airway Blade Size ETT Size C-L Class Final Type Intubation Method 08/03/24 No 4 7.5 grade I - full view of glottis endotracheal airway direct laryngoscopy 05/11/24 No 4 7.5 grade I - full view of glottis endotracheal airway direct laryngoscopy 04/22/19 - - - - - - 04/21/19 - - - - - - MEDICATIONS Outpatient Current Outpatient Medications Medication Instructions albuterol (PROVENTIL) 2.5 mg, Nebulization, Every 6 hours PRN albuterol 108 (90 Base) MCG/ACT inhaler 2 puffs, Every 4-6 hours prn aspirin (ASPIRIN) 81 mg, Every morning atorvastatin (LIPITOR) 40 mg, Every morning Ywtpote-Uvirfbvfdfc-Ivxqvjzzmi (Breztri Aerosphere) 160-9-4.8 MCG/ACT aerosol 2 puffs, Inhalation, 2 times daily, Use with spacer. Rinse mouth after each use. cholecalciferol (Vitamin D-3) 5,000 Units tablet 1 tablet, Daily citalopram (CELEXA) 20 mg, Every morning omeprazole (PRILOSEC) 20 mg, Every morning propranolol (INDERAL) 10 mg, 2 times daily rOPINIRole (Requip) 0.5 MG tablet Take 1 tablet by mouth 3 times a day. Scheduled Current Scheduled Medications[3] PRNs Current PRN Medications[4] SURGICAL HX: Surgical History[5] SOCIAL HX: Social History[6] OBJECTIVE DATA LABS Lab Results Component Value Date WBC 5.63 11/20/2024 HGB 11.1 (L) 11/20/2024 HCT 34.2 (L) 11/20/2024 MCV 96 11/20/2024 PLT 326 11/20/2024 Lab Results Component Value Date CALCIUM 9.7 11/20/2024 BUN 13 11/20/2024 CREATININE 0.78 11/20/2024 BCR 17 11/20/2024 NA 140 11/20/2024 K 4.8 11/20/2024 CL 99 11/20/2024 CO2 29 11/20/2024 Type and Screen No results found for: ABO Lab Results Component Value Date HGBA1C 6.1 (H) 10/23/2024 Lab Results Component Value Date PGLU 137 (H) 10/27/2024 GLUCOSE 105 (H) 11/20/2024 ABG Lab Results Component Value Date PHART 7.33 10/25/2024 GDP8NPI 76 (HH) 10/25/2024 PO2ART 70 (L) 10/25/2024 SO2ART 95 10/25/2024 BEART 12.0 (H) 10/25/2024 FDN3SIW 40.1 (H) 10/25/2024 HCTART 28.0 (L) 10/25/2024 SODIUMART 139 10/25/2024 POTASSIUMART 4.8 10/25/2024 POCTCL 100 10/25/2024 POCGLU 126 (H) 10/25/2024 IONCALART 5.0 10/25/2024 LACTATE 1.0 10/25/2024 Lab Results Component Value Date PH 6.5 07/23/2024 HCTSYR 27.4 (L) 10/26/2024 KSYR 4.4 10/26/2024 CLSYR 95 (L) 10/26/2024 GLUSYR 117 (H) 10/26/2024 CAION 4.8 10/26/2024 LACTATE 1.0 10/25/2024 ECHO Echo, Adult Transthoracic Complete Result Date: 10/26/2024 Left Ventricle: The left ventricle is normal size. There is normal left ventricular myocardial thickness and mass. The left ventricular systolic function is normal. The LVEF is visually estimated at 60 - 65%. The left ventricular filling pressure is indeterminate. Right Ventricle: The right ventricle is normal in size. The right ventricular systolic function is normal. Aortic Valve: The aortic valve appears grossly normal. There is no valvular regurgitation. There is mild aortic stenosis. The peak gradient is 25 mmHg. The mean gradient is 13 mmHg. Pericardium: No pericardial effusion. Great Vessels: The aortic root is mildly dilated. The sinus of Valsalva (aortic root) diameter is 41 mm by leading edge to leading edge method. There is no recent study available for direct xmyn-gy-[id number] comparison. PFTs FEV1 PRE (L) Date/Time Value 11/09/2024 1033 1.04 (A) FEV1 PRED (no units) Date/Time Value 11/09/2024 1033 3.43 OGC3ZMU (L) Date/Time Value 11/09/2024 1033 1.89 (A) FVC PRED (no units) Date/Time Value 11/09/2024 1033 4.56 BP Readings from Last 5 Encounters: 01/11/25 127/72 11/20/24 (!) 161/85 11/13/24 125/80 11/09/24 130/82 11/04/24 115/75 Physical Exam Airway Mallampati: II Cardiovascular Rhythm: regular Dental (+) edentulous Pulmonary Breath sounds clear to auscultation Neurological Skin Musculoskeletal Extremities Anesthesia Plan ASA 3 Plan was reviewed with: STRAW HAT MACHINE OPERATOR Anesthesia technique(s) discussed with the patient/family: general Anesthesia plan agreed upon was: general Anesthetic plan and risks discussed with patient. Anesthesia Evaluation [1] Allergies Allergen Reactions Morphine Hives and Itching Breaks out in hives [2] Past Medical History: Diagnosis Date PONCE (acute kidney injury) PONCE (acute kidney injury) 04/22/24 Bladder mass COPD (chronic obstructive pulmonary disease) Depression GERD (gastroesophageal reflux disease) Lung mass [3] alvimopan, 12 mg, Oral, BID cefOXitin, 2 g, Intravenous, Once Insert peripheral IV, , , Once AND Saline lock IV, , , Once AND sodium chloride, 10 mL, Intravenous, q12h AND sodium chloride, 10 mL, Intravenous, PRN [4] PRN medications: Insert peripheral IV AND Saline lock IV AND sodium chloride AND sodium chloride [5] Past Surgical History: Procedure Laterality Date APPENDECTOMY BLADDER SURGERY 08/03/2024 TURBT, USING BIPOLAR CAUTERY PROBE, WITH SALINE IRRIGATION. CARPAL TUNNEL RELEASE Right CHOLECYSTECTOMY COLON SURGERY FINGER SURGERY Right middle FOOT SURGERY TOTAL KNEE ARTHROPLASTY Left TRANSURETHRAL RESECTION OF BLADDER TUMOR [6] Social History Tobacco Use Smoking status: Former Current packs/day: 0.00 Average packs/day: 1 pack/day for 53.9 years (53.9 ttl pk-yrs) Types: Cigarettes Start date: 1970 Quit date: 2024 Years since quittin.9 Passive exposure: Past Smokeless tobacco: Never Vaping Use Vaping status: Never Used Substance Use Topics Alcohol use: Not Currently Comment: quit 2019. Hx 12 pack/ week. Drug use: Never documented in this encounter Plan of Treatment Upcoming Encounters Date Type Department Care Team (Late st Contact Info) Description 02/08/2025 1:30 PM EST Office Visit [facility] Medicine Specialties [address] [place] [address] Felicita iLndquist, FINANCE ASSISTANT [address] [place] [address] 08/04/2025 9:40 AM EDT Appointment [facility] [address] [place] [address] 08/04/2025 12:00 PM EDT Office Visit [facility] Mult[facility]isciplinary Oncology Clinic [address] [place] [address] Dejuan Hendricks MD [address] [place] [address] 08/04/2025 12:00 PM EDT Clinical Support [facility] [address] [place] [phone] documented as of this encounter Goals Goal Patient Goal Type Associated Problems Recent Progress Patient-Stated? Author Autogenerat ed Goal Care Plan Autogenerated Problem No Yolanda Houser Autogenerat ed Goal Care Plan Autogenerated Problem No Yolanda Houser documented as of this encounter Procedures Procedure Name Priority Date/Time Associated Diagnosis Comments PB POINT OF CARE IMAGING PLACEHOLDER Routine 01/11/2025 8:44 AM EDT PB ANESTHESIA NON-TIMED PROCEDURE PLACEHOLDER Routine 01/11/2025 8:32 AM EDT ANESTHESIA ULTRASOUND GUIDED Routine 01/11/2025 8:25 AM EDT PB ANESTHESIA NON-TIMED PROCEDURE PLACEHOLDER Routine 01/11/2025 8:25 AM EDT ID AN CENTRAL LINE TRIPLE LUMEN Routine 01/11/2025 8:25 AM EDT ANESTHESIA PERIPHERAL IV PLACEMENT Routine 01/11/2025 8:05 AM EDT PB ANESTHESIA PLACEHOLDER Routine 01/11/2025 8:03 AM EDT ID AN ELECTIVE ENDOTRACHEAL AIRWAY Routine 01/11/2025 8:03 AM EDT documented in this encounter Results * PB POINT OF CARE IMAGING PLACEHOLDER (01/11/2025 8:44 AM EDT) Narrative Talha Chi MD - 01/11/2025 8:44 AM EDT Talha Chi MD 01/11/2025 6:31 PM Peripheral Block Patient location during procedure: OR Reason for block: post-op pain management Block is at surgeon's request Staffing Performed: Resident Anesthesiologist: Talha Chi MD Resident: Joseph Easton MD Preanesthetic Checklist Completed: patient identified, IV checked, site marked, risks and benefits discussed, surgical consent, monitors and equipment checked, pre-op evaluation and timeout performed Peripheral Block Patient position: supine Prep: ChloraPrep Patient monitoring: continuous pulse ox, heart rate and quality assurance monitor body Block type: TAP Laterality: right and left Injection technique: single-shot Guidance: ultrasound guided Ultrasound used for needle placement AND ultrasound image retained Needle Needle type: 20 G. Needle localization: anatomical landmarks and ultrasound guidance Medications Administered: 0.25% ropivacaine - Injection 60 mL - 01/11/2025 8:10:00 AM Assessment Injection assessment: negative aspiration for heme, local visualized surrounding nerve on ultrasound and incremental injection Paresthesia pain: none Heart rate change: no Slow fractionated injection: yes Talha Chi MD ANESTHESIA ORDERABLES Final Resu lt * PB ANESTHESIA NON-TIMED PROCEDURE PLACEHOLDER (01/11/2025 8:32 AM EDT) Geremias Nance CRNA - 01/11/2025 8:32 AM EDT Geremias Caballero CRNA 01/11/2025 9:05 AM Arterial Line: Date/Time: 01/11/2025 8:32 AM An arterial line was placed. Procedure performed using ultrasound guidance in the OR for the following indication(s): continuous blood pressure monitoring. A 20 gauge (size), 1 and 3/4 inch (length), Arrow (type) catheter was placed into the Left radial artery and secured by tape. Seldinger technique used Events: patient tolerated procedure well with no complications. Staffing Performed: STRAW HAT MACHINE OPERATOR STRAW HAT MACHINE OPERATOR: Geremias Caballero CRNA Dimitris Nielsen MD ANESTHESIA ORDERABLES F inal Result * ID AN CENTRAL LINE TRIPLE LUMEN, PB ANESTHESIA NON-TIMED PROCEDURE PLACEHOLDER, ANESTHESIA ULTRASOUND GUIDED (01/11/2025 8:25 AM EDT) Geremias Nance CRNA - 01/11/2025 8:25 AM EDT Geremias Caballero CRNA 01/11/2025 8:43 AM Central Venous Line: Date/Time: 01/11/2025 8:25 AM A central venous line was placed in the OR for the following indication(s): central venous access. Sterility preparation included the following: provider hand hygiene performed prior to central venous catheter insertion, all 5 sterile barriers used (gloves, gown, cap, mask, large sterile drape) during central venous catheter insertion, antiseptic used during central venous catheter insertion and skin prep agent completely dried prior to procedure. The patient was placed in Trendelenburg position. Right internal jugular vein was prepped. The site was prepped with Chlorhexidine. A 7 Fr (size), 15 (length), introducer triple lumen was placed. This catheter was not an oximetric catheter. During the procedure, the following specific steps were taken: target vein identified, needle advanced into vein and blood aspirated and guidewire advanced into vein. Seldinger technique used Procedure performed using ultrasound guidance Sterile gel and probe cover used in ultrasound-guided central venous catheter insertion. Intravenous verification was obtained by ultrasound, venous blood return and manometry. Post insertion care included: all ports aspirated, all ports flushed easily, guidewire removed intact, Biopatch applied, line sutured in place and dressing applied. Additional notes: Strict sterile technique maintained during placement Staffing Performed: STRAW HAT MACHINE OPERATOR STRAW HAT MACHINE OPERATOR: Geremias Caballero CRNA us Dimitris Nielsen MD ANESTHESIA ORDERABLES F inal Result * Peripheral IV (01/11/2025 8:05 AM EDT) Narrative Geremias Caballero CRNA - 01/11/2025 8:05 AM EDT Geremias Caballero CRNA 01/11/2025 9:04 AM Peripheral IV Date/Time: 01/11/2025 8:05 AM Placement Needle size: 18 G Location: hand Local anesthetic: none Site prep: alcohol Technique: anatomical landmarks Attempts: 1 us Dimitris Nielsen MD ANESTHESIA ORDERABLES F inal Result * ID AN ELECTIVE ENDOTRACHEAL AIRWAY, PB ANESTHESIA PLACEHOLDER (01/11/2025 8:03 AM EDT) Narrative Geremias Caballero CRNA - 01/11/2025 8:03 AM EDT Geremias Caballero CRNA 01/11/2025 8:14 AM Airway Date/Time: 01/11/2025 8:03 AM Reason: elective Airway not difficult General Information and Staff Patient location during procedure: OR STRAW HAT MACHINE OPERATOR: Geremias Caballero CRNA Performed: CESARIO Patient Condition Indications for airway management: anesthesia Patient position: sniffing Final Airway Details Final airway type: endotracheal airway Successful airway: ETT Cuffed: yes Successful intubation technique: direct laryngoscopy Adjuncts used in placement: intubating stylet Endotracheal tube insertion site: oral Blade: Cassandra ETT size (mm): 7.5 Placement verified by: chest auscultation and capnometry Cuff volume (mL): 8 Measured from: lips ETT to lips (cm): 22 Additional Comments Atraumatic. No change to dentition. Dimitris Nielsen MD ANESTHESIA ORDERABLES F inal Result documented in this encounter Visit Diagnoses Not on filedocumented in this encounter Administered Medications Inactive Administered Medications - up to 3 most recent administrations Medication Order MAR Action Action Date Dose Rate Site cefOXitin (Mefoxin) 2 g in sodium chloride 0.9% 100 mL IVPB (vial adapter required) 2 g, Intravenous, Once, 1 dose, On Sat01/11/25 at 0700, Routine, Holding - Preprocedure Bolus 01/11/2025 2:10 PM EDT 2 g Bolus 01/11/2025 12:13 PM EDT 2 g Bolus 01/11/2025 10:13 AM EDT 2 g electrolyte (Isolyte-S or Plasmalyte-A) IV solution Intravenous, Continuous PRN, Starting on Sat01/11/25 at 1200, Until Sat01/11/25 at 1439, Routine New Bag 01/11/2025 12:00 PM EDT ePHEDrine Sulfate (Akovaz) injection Intravenous, As needed, Starting on Sat01/11/25 at 1315, Until Sat01/11/25 at 1439, Routine, Anesthesia Intraprocedure Given 01/11/2025 1:15 PM EDT 10 mg fentaNYL (Sublimaze) injection Intravenous, As needed, Starting on Sat01/11/25 at 0801, Until Sat01/11/25 at 1439, Routine, Anesthesia Intraprocedure Given 01/11/2025 8:01 AM EDT 50 mcg HYDROmorphone PF (Dilaudid) injection Intravenous, As needed, Starting on Sat01/11/25 at 1347, Until Sat01/11/25 at 1439, Routine, Anesthesia Intraprocedure Given 01/11/2025 2:40 PM EDT 0.4 mg Given 01/11/2025 2:17 PM EDT 0.2 mg Given 01/11/2025 1:47 PM EDT 0.4 mg ketamine (Ketalar) injection Intravenous, As needed, Starting on Sat01/11/25 at 0835, Until Sat01/11/25 at 1439, Routine, Anesthesia Intraprocedure Given 01/11/2025 9:35 AM EDT 20 mg Given 01/11/2025 8:35 AM EDT 30 mg labetalol (Normodyne,Trandate) injection Intravenous, As needed, Starting on Sat01/11/25 at 0939, Until Sat01/11/25 at 1439, Routine, Anesthesia Intraprocedure Given 01/11/2025 9:39 AM EDT 10 mg lactated Ringer's infusion Intravenous, Continuous PRN, Starting on Sat01/11/25 at 0912, Until Sat01/11/25 at 1439, Routine New Bag 01/11/2025 9:12 AM EDT New Bag 01/11/2025 7:56 AM EDT ondansetron (Zofran) injection Intravenous, As needed, Starting on Sat01/11/25 at 1408, Until Sat01/11/25 at 1439, Routine, Anesthesia Intraprocedure Given 01/11/2025 2:08 PM EDT 4 mg phenylephrine 25 mg in NS 250 mL (0.1 mg/mL) infusion (compounding pharmacy premix) Intravenous, Continuous PRN, Starting on Sat01/11/25 at 1100, Until Sat01/11/25 at 1439, Routine, Anesthesia Intraprocedure Rate/Dose Change 01/11/2025 1:33 PM EDT 0.25 mcg/kg/min 14.295 mL/hr Rate/Dose Change 01/11/2025 1:22 PM EDT 0.25 mcg/kg/min 14 .295 mL/hr Rate/Dose Change 01/11/2025 1:10 PM EDT 0.7 mcg/kg/min 40. 026 mL/hr phenylephrine in NS (Alexandre-Synephrine) 100 mcg/mL prefilled syringe Intravenous, As needed, Starting on Sat01/11/25 at 0813, Until Sat01/11/25 at 1439, Routine, Anesthesia Intraprocedure Given 01/11/2025 11:00 AM EDT 20 0 mcg Given 01/11/2025 10:54 AM EDT 100 mcg Given 01/11/2025 10:47 AM EDT 100 mcg propofol (Diprivan) injection Intravenous, As needed, Starting on Sat01/11/25 at 0801, Until Sat01/11/25 at 1439, Routine, Anesthesia Intraprocedure Given 01/11/2025 8:01 AM EDT 150 mg remifentanil (Ultiva) 1 mg in sodium chloride 0.9 % 100 mL infusion Intravenous, Continuous PRN, Starting on Sat01/11/25 at 0850, Until Sat01/11/25 at 1439, Routine Rate/Dose Change 01/11/2025 12:23 PM EDT 0.05 mcg/kg/min 28.785 mL/hr Rate/Dose Change 01/11/2025 12:12 PM EDT 0.1 mcg/kg/min 57 .57 mL/hr Rate/Dose Change 01/11/2025 11:32 AM EDT 0.08 mcg/kg/min 4 6.056 mL/hr rocuronium (ZeMuron) injection Intravenous, As needed, Starting on Sat01/11/25 at 0801, Until Sat01/11/25 at 1439, Routine, Anesthesia Intraprocedure Given 01/11/2025 1:02 PM EDT 20 mg Given 01/11/2025 11:22 AM EDT 30 mg Given 01/11/2025 10:14 AM EDT 20 mg ropivacaine (Naropin) injection Injection, Once PRN Procedure, Starting on Sat01/11/25 at 0750, Until Sat01/11/25 at 0810, Routine, Anesthesia Intraprocedure Given 01/11/2025 8:10 AM EDT 60 mL sodium chloride 0.9 % infusion Intravenous, Continuous PRN, Starting on Sat01/11/25 at 0841, Until Sat01/11/25 at 1439, Routine Rate/Dose Change 01/11/2025 10:07 AM EDT 120 mL/hr New Bag 01/11/2025 8:41 AM EDT 70 mL/hr documented in this encounter Additional Health Concerns Active Problems Noted Date Diagnosed Date Autogenerated Problem 07/30/2024 Autogenerated Problem 11/10/2024 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
--- OUTSIDE RECORDS SUMMARY | 2025-01-27 09:30 | XMS_ITS | Encounter Summary ---
Author Organization Healthcare Address [address] [place] [address] Care Team Providers Care Charge Histotechnologist Name Role Phone Riley Hunter MD Primary Care Provider [phone] Reason for Visit * Reason Comments Follow-up Malignant neoplasm o f urinary bladder, unspecified site (CMS/HCC) Encounter Details Date Type Department Care Team (Late st Contact Info) Description 01/27/2025 9:30 AM EST Office Visit [facility] Multidisciplinary Oncology Clinic [address] [place] [address] Yolanda Tolentino R, FOAM DISPENSER [address] [facility] [address] [place] [address] Malignant neoplasm of urinary bladder, unspecified site (Primary Dx) Social History Tobacco Use Types Packs/Day Years Used Date Smoking Tobacco: Former Cigarettes 1 53.9 1 971 - 2024 Passive Smoke Exposure: Past Smokeless Tobacco: Never Alcohol Use Standard Drinks/Week Comments Not Currently 0 (1 standard drink = 0.6 oz pur e alcohol) quit 2019. Hx 12 pack/ week. PHQ-2 Answer Date Recorded Patient Health Questionnaire-2 Score 0 01/27/2025 PHQ-9 Answer Date Recorded Patient Health Questionnaire-9 [...] and Family Not on file 10/27/2024 Attends [employer] Not on file 10/27 Active Member [...] money to buy more. Never true 01/14/20 25 Within the past 12 months, t [...] any time in the past 12 m [facility], were you homeless or living in a halfway (including now)? No 01/13/2025 [facility] Utilities Answer Date Recorded In the past 12 months has e [employer], gas, oil, or water [employer] threatened to shut off services in your [...] Sign Reading Time Taken Comments Blood Pressure 90/58 01/27/2025 9:48 AM EST Pulse 110 01/27/2025 9:48 AM EST Temperature 36.7 C (98.1 F) 01/27/2025 9:48 AM EST Respiratory Rate 16 01/27/2025 9:48 AM EST Oxygen Saturation 83% 01/27/2025 9:48 AM EST Inhaled Oxygen Concentration - - Weight 94.4 kg (208 lb 1.8 oz) 01/27/2025 9:48 A M EST Height 182.9 cm (6' 0.01 ) 01/27/2025 9:48 AM ES T Body Mass Index 28.22 01/27/2025 9:48 AM EST documented in this encounter Functional Status * Over the past 2 weeks, how often have you been bothered by any of the following problems? Question Answer Date of Assessment Author Little interest or pleasure in doing things Not at all 01/27/2025 9:42 AM EST Alia Velasco Feeling down, depressed, or hopeless Not at all 01/16 9:42 AM EST Alia Velasco Patient Health Questionnaire-2 Score 0 01/16 9:42 AM EST Alia Velasco * Question Answer Date of Assessment Author Thoughts that you would be b priya off or hurting yourself in some way Not at all 01/27/2025 9:42 AM EST Alia Velasco documented as of this encounter Miscellaneous Notes * Progress Notes - Leeroy Presley PA - 01/27/2025 9:30 AM EST Medical Oncology Clinic Note Patient Name: Ronaldo Islas Date of : 1955 69 y.o. Referring Physician:No referring provider defined for this encounter. Encounter Date: 01/27/2025 Interval History: Ronaldo Islas is a 69 y/o M with muscle invasive bladder cancer here today for a post-op visit. Heunderwent elective cystectomy with ileal conduit creation. He continues to wear 3 to 4 liters of supplemental oxygen at all times. He completed neoadjuvant treatment on 11/20/24. The patient also sees Dr. Hendricks today. The patient denies chest pain, shortness of breath, fever, weight loss, n/v/d, new rashes, new pain, headaches, or joint pain. Oncology History Bladder cancer (CMS/HCC) 08/03/2024 Initial Diagnosis Bladder cancer (CMS/HCC) 09/11/2024 - Chemotherapy pembrolizumab (Keytruda) 200 mg in sodium chloride 0.9% 100 mL IVPB, 200 mg, Intravenous, Once, 4 of 4 cycles Administration: 200 mg (09/11/2024), 200 mg (10/02/2024), 200 mg (10/30/2024), 200 mg (11/20/2024) enfortumab vedotin-ejfv (Padcev) 100 mg in sodium chloride 0.9 % 100 mL IVPB, 1 mg/kg = 100 mg (80 % of original dose 1.25 mg/kg), Intravenous, Once, 4 of 4 cycles Dose modification: 1 mg/kg (original dose 1.25 mg/kg, Cycle 1, Reason: Other (See Comments), Comment: Expected tolerability), 1 mg/kg (original dose 1.25 mg/kg, Cycle 1, Reason: Other (See Comments),Comment: Expected tolerability) Administration: 100 mg (09/11/2024), 100 mg (09/19/2024), 100 mg (10/02/2024), 100 mg (10/09/2024), 100 mg (10/30/2024), 100 mg (11/06/2024) Past Medical, Surgical, Family and Social History: Reviewed, and unchanged from most recent clinic visit or updated as indicated. Allergies and Adverse Drug Reactions: Morphine Medications: Reviewed Review of Systems: 14 pt. review of systems performed and negative except as noted in HPI or interval history. There were no vitals taken for this visit. Wt Readings from Last 3 Encounters: 01/12/25 95.3 kg (210 lb) 12/24/24 94.3 kg (208 lb) 11/20/24 101 kg (222 lb 0.1 oz) Physical Exam: ECO General: Sitting/resting comfortably in chair, NAD HEENT: NCAT, PERRLA/EOMI, anicteric; no oral lesions Neck: Supple, no lymphadenopathy or JVD Heart: RRR, no MGR Lungs: CTAB; no rales, rhonchi or wheezes Abdomen: Soft, NTND, + BS Extremities: No edema, distal pulses intact Musculoskeletal: No focal tenderness or deformity Skin: No visible rashes or lesions Neuro: Grossly nonfocal; no localizing deficits of strength, sensation, or mentation Psychiatric: Normal mood and thought content LABS: Appointment on 01/27/2025 Component Date Value WBC Count 01/27/2025 6.67 RBC Count 01/27/2025 2.91 (L) HGB 01/27/2025 8.8 (L) HCT 01/27/2025 28.7 (L) Platelet Count 01/27/2025 439 (H) MCV 01/27/2025 99 (H) MCH 01/27/2025 30.2 MCHC 01/27/2025 30.7 RDW 01/27/2025 15.4 (H) MPV 01/27/2025 8.8 nRBC 01/27/2025 0.0 Differential Type 01/27/2025 Automated Neutrophils % 01/27/2025 51 Lymphocytes % 01/27/2025 32 Monocytes % 01/27/2025 7 Eosinophils % 01/27/2025 9 Basophils % 01/27/2025 1 Immature Granulocytes % 01/27/2025 0 Neutrophils Absolute 01/27/2025 3.35 Lymphocytes Absolute 01/27/2025 2.14 Monocytes Absolute 01/27/2025 0.48 Eosinophils Absolute 01/27/2025 0.63 (H) Basophils Absolute 01/27/2025 0.04 Immature Granulocytes Ab* 01/27/2025 0.03 RADIOLOGY: No image results found. 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 Hendricks does not recommend f/u with us for further adjuvant therapy - Urology to obtain lab work including PSA - He completed neoadjuvant treatment on 11/20/24 - Will RTC with Dr. Hendricks in 6 months for PSA, CT chest and Urogram Peripheral neuropathy (grade 2) - Related to EV which was held during his last neoadjuvant infusion on 11/20/24 - Symptoms are stable COPD - No recent increase in supplemental oxygen - Managed by a care management associate - Continue with current inhaler regimen and supplemental oxygen Depression RLS - Managed by PCP The selection, dosing and administration of anti-cancer agents and the management of associated toxicities requires complex medical decision making and intensive monitoring for toxicity. Modifications of drug dose and schedule as well as the initiation of supportive care interventions are often necessary because of expected toxicities. This varies individually based on patient tolerability, priortreatments and comorbidities/risk status. Monitoring typically entails labs, imaging and/or other diagnostics, utilizing a healthcare delivery team experienced in the use of anticancer agents and themanagement of associated toxicities in patients with cancer. Leeroy Presley PA-C Division of Medical Oncology [facility] Cosigned by Yolanda Tolentino APRN at 01/28/2025 8:44 AM EST Associated attestation - Yolanda Tolentino APRN - 01/28/2025 8:44 AM EST I personally reviewed and discussed the patient???s case with the RUDOLPH during the outpatient oncology visit. I concur with the assessment and plan as documented, unless otherwise noted. I was available on site for consultation and oversight throughout the patient encounter. documented in this encounter Plan of Treatment Upcoming Encounters Date Type Department Care Team (Late st Contact Info) Description 02/08/2025 1:30 PM EST Office Visit [facility] Medicine Specialties [address] [place] [address] Felicita Lindquist, ALFREDO [address] [place] [address] 08/04/2025 9:40 AM EDT Appointment [facility] [address] [place] [address] 08/04/2025 12:00 PM EDT Office Visit [facility] Multidisciplinary Oncology Clinic [address] [place] [phone] Dejuan Hendricks MD [address] [place] [phone] 08/04/2025 12:00 PM EDT Clinical Support [facility] Multidisciplinary Oncology Clinic [address] [place] [phone] documented as of this encounter Goals Goal Patient Goal Type Associated Problems Recent Progress Patient-Stated? Author Autogenerat ed Goal Care Plan Autogenerated Problem No Yolanda Houser Autogenerat ed Goal Care Plan Autogenerated Problem No Yolanda Houser documented as of this encounter Results * (ABNORMAL) CBC and Differential (01/27/2025 8:50 AM EST) WBC Count 6.67 3.70 - 10.30 10*3/uL LAB HEMATOLOGY METHOD 01/27/2025 9:23 AM EST [facility] RBC Count 2.91(L) 4.60 - 6.10 10*6/uL LAB HEMATOLOGY METHOD 01/27/2025 9:23 AM EST [facility] HGB 8.8(L) 13.7 - 17.5 g/dL LAB HEMATOLOGY METHOD 01/27/2025 9:23 AM EST [facility] HCT 28.7(L) 40.0 - 51.0 % LAB HEMATOLOGY METHOD 01/27/2025 9:23 AM EST [facility] Platelet Count 439(H) 155 - 369 10*3/uL LAB HEMATOLOGY METHOD 01/27/2025 9:23 AM EST [facility] MCV 99(H) 79 - 98 fL LAB HEMATOLOGY METHOD 01/27/2025 9:23 AM EST [facility] MCH 30.2 26.0 - 32.0 pg LAB HEMATOLOGY METHOD 01/27/2025 9:23 AM EST [facility] MCHC 30.7 30.7 - 35.5 g/dL LAB HEMATOLOGY METHOD 01/27/2025 9:23 AM EST [facility] RDW 15.4(H) 11.5 - 14.5 % LAB HEMATOLOGY METHOD 01/27/2025 9:23 AM EST [facility] MPV 8.8 8.8 - 12.5 fL LAB HEMATOLOGY METHOD 01/27/2025 9:23 AM EST [facility] nRBC 0.0 <=0.0 per 100 WBCs LAB HEMATOLOGY METHOD 01/27/2025 9:23 AM EST [facility] Differential Type Automated LAB HEMATOLOGY METHOD 01/27/2025 9:23 AM EST [facility] Neutrophils % 51 % LAB HEMATOLOGY METHOD 01/27/2025 9:23 AM EST [facility] Lymphocytes % 32 % LAB HEMATOLOGY METHOD 01/27/2025 9:23 AM EST [facility] Monocytes % 7 % LAB HEMATOLOGY METHOD 01/27/2025 9:23 AM EST [facility] Eosinophils % 9 % LAB HEMATOLOGY METHOD 01/27/2025 9:23 AM EST [facility] Basophils % 1 % LAB HEMATOLOGY METHOD 01/27/2025 9:23 AM EST [facility] Immature Granulocytes % 0 % LAB HEMATOLOGY METHOD 01/27/2025 9:23 AM EST [facility] Neutrophils Absolute 3.35 1.60 - 6.10 10*3/uL LAB HEMATOLOGY METHOD 01/27/2025 9:23 AM EST [facility] Lymphocytes Absolute 2.14 1.20 - 3.90 10*3/uL LAB HEMATOLOGY METHOD 01/27/2025 9:23 AM EST [facility] Monocytes Absolute 0.48 0.30 - 0.90 10*3/uL LAB HEMATOLOGY METHOD 01/27/2025 9:23 AM EST [facility] Eosinophils Absolute 0.63(H) 0.00 - 0.50 10*3/uL LAB HEMATOLOGY METHOD 01/27/2025 9:23 AM EST [facility] Basophils Absolute 0.04 0.00 - 0.10 10*3/uL LAB HEMATOLOGY METHOD 01/27/2025 9:23 AM EST [facility] Immature Granulocytes Absolute 0.03 0.00 - 0.06 10*3/uL LAB HEMATOLOGY METHOD 01/27/2025 9:23 AM EST [facility] Blood Venous blood specimen / Unknown Venipuncture / Unknown 01/27/2025 8:50 AM EST 01/27/2025 9:17 AM EST Narrative [facility] - 01/27/2025 9:23 AM EST Therapeutic decision making should be based on absolute values, rather than percentages. us Yolanda Tolentino APRN LAB BLOOD ORDERABLES Final Re sult [facility] [address] [place] [address] * (ABNORMAL) Comprehensive Metabolic Panel, Plasma (01/27/2025 8:50 AM EST) Glucose, Plasma 134(H) 74 - 99 mg/dL 01/27/2025 10:21 AM EST [facility] BUN, Plasma 13 8 - 23 mg/dL 01/27/2025 10:21 AM [facility] Creatinine, Plasma 0.96 0.70 - 1.20 mg/dL 01/27/2025 10:21 AM [facility] BUN/Creatinine Ratio 14 01/27/2025 10:21 AM [facility] Sodium, Plasma 140 136 - 145 mmol/L 01/27/2025 10:21 AM [facility] Potassium, Plasma 5.4(H) 3.6 - 4.9 mmol/L 01/27/2025 10:21 AM [facility] Chloride, Plasma 100 97 - 107 mmol/L 01/27/2025 10:21 AM [facility] CO2, Plasma 34(H) 22 - 29 mmol/L 01/27/2025 10:21 AM [facility] Anion Gap 6 6 - 16 mmol/L 01/27/2025 10:21 AM [facility] Total Calcium, Plasma 9.5 8.9 - 10.2 mg/dL 01/27/2025 10:21 AM [facility] Total Protein 7.1 6.3 - 7.9 g/dL 01/27/2025 10:21 AM [facility] Albumin, Plasma 3.7 3.5 - 5.2 g/dL 01/27/2025 10:21 AM [facility] AST, Plasma 16 10 - 50 U/L 01/27/2025 10:21 AM [facility] ALT, Plasma 13 10 - 50 U/L 01/27/2025 10:21 AM [facility] Alkaline Phosphatase, Plasma 64 40 - 115 U/L 01/27/2025 10:21 AM [facility] Total Bilirubin, Plasma 0.2 0.2 - 1.1 mg/dL 01/27/2025 10:21 AM [facility] eGFRcr 85.6 mL/min/1.7 3m*2 01/27/2025 10:21 AM [facility] Comment:Reported eGFRcr in m L/min/1.73m2 is based the CKD-EPI 2020 equation that does not use a race coefficient. 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
--- OUTSIDE RECORDS SUMMARY | 2025-01-27 10:20 | XMS_ITS | Encounter Summary ---
Author Organization [facility] Address [address] [place] [address] Care Team Providers Care Tank Car Inspector Name Role Phone Riley Hunter MD Primary Care Provider [phone] Reason for Referral * Imaging (Routine) - Pending Review Specialty Diagnoses / Procedures Referred By Ciaran t Referred To Contact Radiology Diagnoses Malignant neoplasm of urinary bladder, unspecified site Procedures CT Chest w IV Contrast Dejuan Hendricks MD [address] [address] Phone: tel: fax: Referral ID Status Reason Start Date Expiration Date V isits Requested Visits Authorized [id number] Pending Review 01/27/2025 07/29/2026 1 1 * Imaging (Routine) - Pending Review Specialty Diagnoses / Procedures Referred By Ciaran nuñez Referred To Contact Radiology Diagnoses Malignant neoplasm of urinary bladder, unspecified site Procedures CT Urogram Dejuan Hendricks MD [address] [address] Phone: tel: fax: Referral ID Status Reason Start Date Expiration Date V isits Requested Visits Authorized [id number] Pending Review 01/27/2025 07/29/2026 1 1 Reason for Visit * Reason Comments Follow-up Malignant neoplasm o f posterior wall of urinary bladder (CMS/HCC) Encounter Details Date Type Department Care Team (Latest Contact Info) Description 01/27/2025 10:20 AM EST Office Visit [facility] Mult[facility] [address] [place] [address] Dejuan Hendricks MD [address] [place] [id number] Malignant neoplasm of urinary bladder, unspecified site (Primary Dx); Prostate cancer (CMS/HCC) Social History Tobacco Use Types Packs/Day Years [...] and Family Not on file 10/27/2024 Attends [employer] Not on file 10/27 Active Member [...] any time in the past 12 m [facility], were you homeless or living in a intermediate (including now)? No 01/13/2025 [facility] Utilities Answer Date Recorded In the past 12 months has th e [email or web address], gas, oil, or water company threatened to [...] Time Taken Comments Blood Pressure 90/58 01/27/2025 9:33 AM EST Pulse 110 01/27/2025 9:33 AM EST Temperature 36.7 C (98.1 F) 01/27/2025 9:33 AM EST Respiratory Rate 16 01/27/2025 9:33 AM EST Oxygen Saturation 83% 01/27/2025 9:33 AM EST Inhaled Oxygen Concentration - - Weight 94.4 kg (208 lb 1.8 oz) 01/27/2025 9:33 A M EST Height 182.9 cm (6' 0.01 ) 01/27/2025 9:33 AM ES T Body Mass Index 28.22 01/27/2025 9:33 AM EST documented in this encounter Functional Status * Over the past 2 weeks, how often have you been bothered by any of the following problems? Question Answer Date of Assessment Author Little interest or pleasure in doing things Not at all 01/27/2025 9:42 AM Alia Tavares Feeling down, depressed, or hopeless Not at all 01/16 9:42 AM Alia Tavares Patient Health Questionnaire-2 Score 0 01/16 9:42 AM Alia Tavares * Question Answer Date of Assessment Author Thoughts that you would be b priya off or hurting yourself in some way Not at all 01/27/2025 9:42 AM Alia Tavares documented as of this encounter Miscellaneous Notes * Progress Notes - Eboni Ricks MD - 01/27/2025 10:20 AM EST [facility]rology Clinic Note 01/27/25 CC: Bladder cancer HPI: Ronaldo Islas is a 69 y.o. male with bladder cancer. He presented with hematuria and had abladder mass on CT. TURBT 04/2024 revealed high grade T1 urothelial cancer. He was to be scheduled for initiation of intravesical chemotherapy but treatment was delayed until 07/23/24. He presented for therapy with gross hematuria, so he was scheduled in our clinic for cystoscopy. Office cystoscopy revealed extensive recurrent disease. TURBT on 08/03/24 revealed muscle invasive disease. 10% of the urothelial cancer was plasmacytoid variant. He elected to proceed with neoadjuvant chemotherapy and was treated with Pembro/Enfortumab-vedotin for 4 planned cycles. He had a delay in Course 3 due to COPD exacerbation. He underwent open radical cystoprostatectomy with PLND 01/11/25. Uncomplicated post-op course, discharged on 01/15. Presents today in follow up. Doing well. Has had some reduced appetite since surgery but stays well hydrated. He is having regular bowel movements. No issues pouching ostomy, they aregetting used to it. No leakage per penis. No concerns today. Physical Exam: Vitals: 01/27/25 0933 BP: 90/58 Pulse: 110 Resp: 16 Temp: 36.7 ??C (98.1 ??F) SpO2: (!) 83% GEN: NAD, he is on Oxygen today. HEENT: NCAT, EOMI RESP: Equal bilateral chest rise, normal work of breathing, on home O2 CV: RRR, appears well perfused ABD: Soft, nontender, nondistended, incision well healing. Stoma pink, patent, tool repair technician stents in place (removed during visit) EXT: No gross deformities MSK: Full ROM in BL UE NEURO: No focal deficits, AOx3 PSYCH: Normal mood and affect Imaging: === 11/04/24 === CT CHEST W IV CONTRAST - Narrative - CLINICAL INDICATION: Bladder Cancer TECHNIQUE: Multiple axial CT images were obtained from thoracic inlet through pubic symphysis following administration of IV contrast, Omnipaque 300, 100 mL. Reformatted images in the coronal and sagittal planes were generated from the axial data set to facilitate diagnostic accuracy. Total DLP (Dose-Length Product): 1151.97 mGy.cm (accession [id number]), 1151.97 mGy.cm (accession [id number]) Please note: The reported value represents the total of one or more individual components during the CT acquisition on this date and at this time, and as such, the same value may appear in morethan one CT report depending on the interpreting/reporting physicians. COMPARISON: CT chest/abdomen/pelvis from 10/23/2024 and 09/09/2024 FINDINGS: Chest: Lymph Nodes and Mediastinum: A pretracheal lymph node measuring 11 mm is unchanged. No enlarging thoracic lymph nodes. No mediastinal mass lesions. No suspicious thyroid findings. Cardiovascular: The heart is normal in caliber. Thoracic great vessels are patent. Lungs and Pleura: Central airways are patent. Emphysematous change is most prominent in the upper lobes. Atelectasis and/or scarring at the lung bases. A 3 mm nodule within the right lower lobe is stable (series 4 image 211). No enlarging pulmonary nodules. No pleural effusions or suspicious thickening. Musculoskeletal and Body Wall: No clearly aggressive bone lesions. No suspicious body wall findings. Abdomen/Pelvis: Kidneys, Ureters, Bladder: Precontrast imaging demonstrates no evidence of urinary tract calculi. After the administration of intravenous contrast material both kidneys concentrate and excrete contrast promptly and symmetrically. The bilateral pelvicalyceal systems opacify normally without evidenceof soft tissue filling defects. No suspicious renal parenchymal mass lesions. The bilateral uretersare normal in course and caliber.. There is minimal thickening along the anterior surface of the bladder near the dome, less conspicuous than on 10/23/2024 and improved from 09/09/2024. Thickening of the urinary bladder anteriorly measures up to 8 mm (previously 14 mm on 09/09/2024). Remaining Solid Abdominal and Pelvic Organs: Hepatic parenchyma is homogeneous. No suspicious hepatic mass. Gallbladder is surgically absent. No intrahepatic or extrahepatic biliary ductal dilatation. Adrenal glands are unremarkable. Pancreatic parenchyma is homogeneous. No pancreatic ductal dilatation. The spleen is nonenlarged. Prostate gland and seminal vesicles are unremarkable. GI Tract/Mesentery/Peritoneum: Stomach is unremarkable. Small and large bowel maintain normal caliber and contour. No bowel obstruction. No suspicious mesenteric or peritoneal findings. Free Fluid: No ascites. Lymph Nodes and Vasculature: No lymphadenopathy by CT size criteria. Aortoiliac vasculature maintains normal caliber and contour. The portosplenic confluence is patent. Musculoskeletal and Body Wall: No clearly aggressive osseous lesions. No suspicious body wall findings. - Impression - Chest: No evidence of disease progression. Abdomen/Pelvis: Intervally reduced thickness along the anterior aspect of the bladder near the dome when compared back to 09/09/2024, measuring up to 8 mm. No soft tissue filling defects within the upper tracts. No abdominopelvic adenopathy. CRITICAL RESULT: No. Pathology: A. RIGHT DISTAL URETER MARGIN (FROZEN): - [...] NEGATIVE FOR TUMOR. - SEE SYNOPTIC CHECKLIST. 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 He had uneventful post-operative course. Pathology showed no residual cancer in the bladder, incidentally found GG1 prostate cancer, negative lymph nodes. He is doing well today. No issues with pouching stoma. Eating okay, appetite is a little slow. Staying hydrated. Walking around. Seems to require a little more oxygen but has upcoming appt with bias cutting machine operator vertical. Filter Press Pumper stents removed today without difficulty. No need for adjuvant therapy given pathology. Low risk prostate cancer, will monitor PSA at next visit. Plan: - RTC 6 mo with PSA, CT chest/CT Urogram Deborah Ricks MD PGY-4 Urology Cosigned by Dejuan Hendricks MD at 02/01/2025 7:45 AM EST Associated attestation - Dejuan Hendricks MD - 02/01/2025 7:45 AM EST I saw and evaluated the patient with the resident/fellow. I discussed the case with the resident/fellow and agree with the findings and plan as documented. documented in this encounter Plan of Treatment Upcoming Encounters Date Type Department Care Team (Late st Contact Info) Description 02/08/2025 1:30 PM EST Office Visit [facility] [address] [place] [address] Felicita Lindquist, NATIONAL SALES TRAINER [address] [place] [address] 08/04/2025 9:40 AM EDT Appointment [facility] [address] [place] [address] 08/04/2025 12:00 PM EDT Office Visit [facility] Mult[facility]isciplinary Oncology Clinic [address] [place] [phone] Dejuan Hendricks MD [address] [place] [address] 08/04/2025 12:00 PM EDT Clinical Support [facility] [address] [place] [id number] Scheduled Orders Name Type Priority Associated Diagnoses Orde r Schedule CT Urogram Imaging Routine Malignant neoplasm of urinary bladder, unspecified site Expected: 07/27/2025 (Approximate), Expires: 07/31/2026 CT Chest w IV Contrast Imaging Routine Malignant neoplasm of urinary bladder, unspecified site Expected: 07/27/2025 (Approximate), Expires: 07/27/2026 PSA, diagnostic Lab Routine Prostate cancer (CMS/HCC) Expected: 07/27/2025 (Approximate), Expires: 07/31/2026 documented as of this encounter Goals Goal Patient Goal Type Associated Problems Recent Progress Patient-Stated? Author Autogenerat ed Goal Care Plan Autogenerated Problem No Yolanda Houser Autogenerat ed Goal Care Plan Autogenerated Problem No Yolanda Houser documented as of this encounter Visit Diagnoses Diagnosis Malignant neoplasm of urinary bladder, unspecified site- Primary Prostate cancer (CMS/HCC) Malignant neoplasm of prostate documented in this encounter Additional Health Concerns [...] documented as of this encounter Care Teams Tank Car Inspector Relationship Specialty Start Date End Date Riley Hunter MD [address] [place] [address] PCP - General 04/22/24 documented as of this encounter
--- NOTE | 2025-02-04 12:44 | PC.NURSE ---
115 FSBS at this time
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
--- NOTE | 2025-02-04 12:50 | ECG_ITS ---
APPROVED REPORT Exam: Resting ECG HR:98 bpm ECG Measurements Heart Rate 98 AXES NE 189 P 71 QRSd 91 QRS 52 QT 319 T 88 QTc 375 Conclusion SINUS RHYTHM NONSPECIFIC T-WAVE ABNORMALITY BORDERLINE ECG UNCONFIRMED REPORT Normal sinus rhythm. No ST elevation or depression. QTc 375 Electronically signed by : JOCELYNE ANTHONY, 02/04/2025 14:22:12
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
[2025-02-04 12:54] LABS: Hematocrit 27.6 % (42.0-52.0); Hemoglobin 8.7 g/dL (14.1-18.0); Immature Granulocytes % 0.5 %; Mean Corpuscular HGB Conc 31.5 g/dL (31.8-35.4); Mean Corpuscular Hemoglobin 30.6 pg (27.0-31.2); Mean Corpuscular Volume 97.2 fl (80-94); Nucleated Red Blood Cells % 0 %; Platelet Count 274 K/mm3 (142-424); Red Blood Count 2.84 M/mm3 (4.60-6.20); Red Cell Distribution Width-SD 54.8 fL; White Blood Count 5.5 K/mm3 (4.8-10.8)
[2025-02-04 12:57] VITALS: BP 150/92; PULSE 102; RESP 20; TEMP 36.9; O2SAT 95; BMI 27.9
[2025-02-04 12:58] LABS: Albumin Level 4.0 g/dl (3.5-5.0); Chloride 100 mmol/L (98-107); Sodium 139 mmol/L (136-145)
[2025-02-04 12:59] LABS: Potassium 4.7 mmoL/L (3.5-5.1)
[2025-02-04 13:01] LABS: Alanine Aminotransferase 17 U/L (12-78); Albumin/Globulin Ratio 1.1 (1.1-1.8); Alkaline Phosphatase 62 U/L (38-126); Anion Gap 12.7 mEq/L (5-15); Aspartate Amino Transferase 29 U/L (17-59); Bilirubin,Total 0.2 mg/dl (0.2-1.3); Blood Urea Nitrogen 25 mg/dl (9-20); Carbon Dioxide 31 mmol/L (22.0-30.0); Creatinine,Serum 1.00 mg/dl (0.66-1.25); Estimated Glomerular Filt Rate 74 ml/min (>60); GFR (African American) 90 ML/MIN (>60); Globulin 3.5 g/dL (1.3-3.2); Total Protein,Serum 7.5 g/dl (6.3-8.2)
[2025-02-04 13:02] LABS: Calcium 9.1 mg/dl (8.4-10.2); Glucose 100 mg/dl (74-100); Lipase 97 U/L (23-300)
[2025-02-04 13:08] LABS: Activated Partial Thrombo Time 23.7 seconds (22.8-30.6); INR 0.98 (0.9-1.1); Prothrombin Time 10.9 seconds (10.1-12.5)
[2025-02-04] MEDS: SODIUM CHLORIDE 0.9% 10ML SYR (RAD ONLY) 10 ML IV (13:08)
[2025-02-04] MEDS: 0.9 % SODIUM CHLORIDE 50 ML VIAL IV (13:08)
[2025-02-04] MEDS: IOPAMIDOL-370 (76%);100ML BOTTLE 80 ML IV (13:08)
[2025-02-04 13:30] VITALS: BP 122/60; PULSE 77; O2SAT 92
[2025-02-04 13:33] LABS: Troponin I < 0.01 ng/ml (0.00-0.034)
--- OUTSIDE RECORDS SUMMARY | 2025-02-04 13:51 | XMS_ITS | Encounter Summary ---
Author Organization Healthcare Address [address] [place] [address] Care Team Providers Care Tenter Feeder Name Role Phone Riley Hunter MD Primary Care Provider [phone] Encounter Details Date Type Department Care Team (Latest Contact Info) Description 01/27/2025 Travel Social History Tobacco Use Types Packs/Day Years [...] and Family Not on file 10/27/2024 Attends [employer] Not on file 10/27 Active Member [...] any time in the past 12 m [facility], were you homeless or living in a skilled nursing (including now)? No 01/13/2025 [facility] Utilities Answer Date Recorded In the past 12 months has th e [employer], gas, oil, or water company threatened to [...] as of this encounter Functional Status * Over the [...] Alia Tavares documented as of this encounter Plan of Treatment Upcoming Encounters Date Type Department Care Team (Late st Contact Info) Description 02/08/2025 1:30 PM EST Office Visit [facility] [address] [place] [address] Felicita Lindquist, CROP OR GRAIN FARMER [address] [place] [phone] 08/04/2025 9:40 AM EDT Appointment [facility] [address] [place] [phone] 08/04/2025 12:00 PM EDT Office Visit [facility] [address] [place] [address] Dejuan Hendricks MD [address] [place] [phone] 08/04/2025 12:00 PM EDT Clinical Support [facility] [address] [place] [address] documented as of this encounter Goals Goal Patient Goal Type Associated Problems Recent Progress Patient-Stated? Author Autogenerat ed Goal Care Plan Autogenerated Problem No Yolanda Houser Autogenerat ed Goal Care Plan Autogenerated Problem No CorrinaYolanda documented as of this encounter Visit Diagnoses [...] documented as of this encounter Care Teams Tenter Feeder Relationship Specialty Start Date End Date Riley Hunter MD [address] [place] [phone] PCP - General 04/22/24 documented as of this encounter
--- OUTSIDE RECORDS SUMMARY | 2025-02-04 13:52 | XMS_ITS | Encounter Summary ---
Author Organization Healthcare Address [address] [place] [address] Care Team Providers Care Change Management Director Name Role Phone Riley Hunter MD Primary Care Provider [phone] Radhika Wills SURGICAL INSTRUMENT MECHANIC Unavailable Unavailab le Encounter Details Date Type Department Care Team (Late st Contact Info) Description 11/26/2024 Telephone [facility] [address] [place] [address] Felicita Lindquist, PRINTING PRESS OPERATOR [address] [place] [address] Social History Tobacco Use Types Packs/Day Years Used Date Smoking Tobacco: Former Cigarettes 1 53.9 1 971 - 2024 Passive Smoke Exposure: Past Smokeless Tobacco: Never Alcohol Use Standard Drinks/Week Comments Not Currently 0 (1 standard drink = 0.6 oz pur e alcohol) PHQ-2 Answer Date Recorded Patient Health Questionnaire-2 [...] and Family Not on file 10/27/2024 Attends [employer] Not on file 10/27 Active Member [...] any time in the past 12 m [facility], were you homeless or living in a custodial (including now)? No 10/27/2024 Utilities Answer Date Recorded In the past 12 months has th [employer], gas, oil, or water company threatened [...] on file documented as of this encounter Miscellaneous Notes * Telephone Encounter - Kristie Burch - 12/08/2024 7:42 AM EDT I'm sorry! [facility] fax [facility] * Telephone Encounter - Kristie Burch - 12/03/2024 1:41 PM EDT Received call from patient's daughter States that [employer] has never received order for neb machine Faxed DME order to F: [phone] CB: [phone] * Telephone Encounter - Desirae Colon - 11/26/2024 11:46 AM EDT Clinical Concern/Question Reason for Call: Pts daughter is calling to follow up on pts nebulizer machine. States that [employer] has not received the prescription. phone number: [phone]. Please call. Best contact number: [phone] (mobile) Optimal time of day to reach caller: ANYTIME Additional comments/information from caller: Not Applicable Note: Please do not reply to this message. Follow-up communication and further actions as a result of this message need to be communicated with the patient directly, if the patient is not active onMyChart. If the patient is active on MyChart, they will receive notification of the communication/outcome via MyChart. documented in this encounter Plan of Treatment Upcoming Encounters Date Type Department Care Team (Late st Contact Info) Description 02/08/2025 1:30 PM EST Office Visit [facility] Medicine Specialties [address] [place] [address] Felicita Lindquist, PRINTING PRESS OPERATOR [address] [place] [address] 08/04/2025 9:40 AM EDT Appointment [facility] [address] [place] [phone] 08/04/2025 12:00 PM EDT Office Visit [facility] Multidisciplinary Oncology Clinic [address] [place] [phone] Dejuan Hendricks MD [address] [place] [address] 08/04/2025 12:00 PM EDT Clinical Support [facility] Mult[facility]cology Clinic [address] [place] [phone] documented as of this encounter Goals Goal [...] documented as of this encounter Care Teams Change Management Director Relationship Specialty Start Date End Date Riley Hunter MD [address] [place], [place] [address] PCP - General 04/22/24 Radhika Wills LPN [facility] None TCM Nurse 10/28/24 11/27/24 documented as of this encounter
--- OUTSIDE RECORDS SUMMARY | 2025-02-04 13:52 | XMS_ITS | Clinical Summary ---
Author Organization [facility] Address [address] [place] [address] Care Team Providers Care Animal Care Supervisor Name Role Phone Riley Hunter MD Primary Care Provider [phone] Allergies Active Allergy Reactions Criticality Noted Date Comments Morphine Hives,Itching Medium 11/16/2012 Breaks out in hives Medications omeprazole (PriLOSEC) [address] capsule Take 1 capsule by mouth every morning. 4 Active citalopram (CeleXA) 20 MG tablet Take 1 tablet by mouth every morning. 4 Active atorvastatin (Lipitor) 40 MG tablet Take 1 tablet by mouth every morning. 4 Active albuterol 108 (90 Base) MCG/ACT inhaler Inhale 2 puffs every 4 to 6 hours as needed for shortness of breath or wheezing. Active propranolol (Inderal) 10 MG tablet Take 1 tablet by mouth 2 times a day. Active cholecalciferol (Vitamin D-3) 5,000 Units tablet Take 1 tablet by mouth daily. Active ASPIRIN 81 MG chewable tablet Chew 1 tablet every morning. Active rOPINIRole (Requip) 0.5 MG tablet Take 1 tablet by mouth 3 times a day. 4 Active Budeson-Glycopy rrol-Formoterol (Breztri Aerosphere) 160-9-4.8 MCG/ACT aerosolIndicati ons:Chronic obstructive pulmonary disease, unspecified COPD type (CMS/HCC) Inhale 2 puffs 2 times a day. Use with spacer. Rinse mouth after each use. 10.7 g 11 Active albuterol (Proventil) (2.5 MG/3ML) 0.083% nebulizer solutionIndicat ions:Chronic obstructive pulmonary disease, unspecified COPD type (CMS/HCC) Take 3 mL by nebulization every 6 hours as needed for wheezing or shortness of breath (or cough). 120 mL 2 5 Active Additional Information Patient not taking.Reported on 01/27/2025 acetaminophen (Tylenol) 500 MG tablet Take 2 tablets by mouth every 6 hours. 20 tablet 5 Active apixaban (Eliquis) 2.5 MG tablet Take 1 tablet by mouth 2 times a day. 60 tablet 5 02/15/20 Active lidocaine (Lidoderm) 5 % patch Apply 1 patch topically 1 (one) time each day at the same time over 12 hours. Remove & discard patch within 12 hours or as directed by MD. 20 patch Active methocarbamol (Robaxin) 750 MG tablet Take 1 tablet by mouth 4 times a day. 20 tablet 5 Active nitrofurantoin, macrocrystal-mo nohydrate, (Macrobid) 100 MG capsuleIndicati ons:Bladder mass Take 1 capsule by mouth daily. 30 capsule 5 Active senna-docusate (Uzma-Colace) 8.6-50 MG tablet Take 1 tablet by mouth nightly. 30 tablet 5 Active nutrional drink glucose control (Boost Glucose Control) liquid liquid Take 230 mL by mouth 3 times a day. 51014 mL 5 Active oxyCODONE (Roxicodone) 5 MG immediate release tablet Take 1 tablet by mouth every 6 hours as needed for severe pain. 8 tablet 5 Active naloxone (Narcan) 4 mg/0.1 mL nasal spray 1. Give 1 spray in nostril for no/slow breathing or cannot wake after opioid use 2. Call 911 3. Repeat in other nostril if symptoms continue 1 each 5 Active apixaban (Eliquis) 2.5 MG tablet Take 1 tablet by mouth 2 times a day. 60 tablet 5 11/30/20 25 Active Additional Information Patient not taking.Reported on 01/27/2025 levoFLOXacin (Levaquin) 750 MG tablet Active Active Problems Problem Noted Date Diagnosed Date Malignant neoplasm of urinary bladder, unspecifi ed site 01/11/2025 COPD exacerbation 10/23/2024 Bladder cancer 08/03/2024 Bladder tumor 07/29/2024 Lung mass 04/22/2024 Bladder mass 03/25/2024 Overview (04/22/2024): noted 03/2024 during hospital admission with gross hematuria, had ultrasound read as asymmetric and abnormal thickening of the posterior wall of the bladder concerning for potential malignancy versus possible intravesicular hematoma . urinary bladder noted as normal on CT during same hospital admission. Cigarette smoker 03/25/2024 Partial small bowel obstruction 03/25/2024 Overview (04/22/2024): spontaneous SBO with inpatient hospital stay 03/17/2024-03/20/2024 at [facility] Chronic post-traumatic headache, not intractable 02/07/2024 Concussion with loss of consciousness 02/07/2024 Bilateral carotid artery stenosis 02/03/2024 Unspecified disorder of right ear 02/03/2024 Contusion of scalp 01/08/2024 Generalized enlarged lymph nodes 01/03/2024 Chronic obstructive pulmonar y disease with (acute) exacerbation 10/17/2023 Hypoxemia 10/17/[address] 09/30/2023 Overview (04/22/2024): Suggestive of cirrhosis. Platelets normal, LFT normal, no ascities, no rash. Check RUQ ultrasound. Drinks 7 beers per day. Recommend decrease alcohol intake. Gross hematuria 09/27/2023 Effusion, right knee 09/12/2023 Obesity, unspecified 09/12/2023 Dyslipidemia 09/08/2020 Overview (04/22/2024): 10 year Cardiovascular risk is 29% On lipitor. No issues. Continue same. 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 Gastroesophageal reflux disease without esophagi tis 02/15/2016 Overview (04/22/2024): Well controled no dysphagia. Denies dark stools, BPR, and hemopytsis. Stable on PPI. History of colon polyps 10/04/2015 Overview (04/22/2024): 3 sigmoid colon polyps removed in 2009 - age 51. Dr Stallworth. Is due for follow up. Hepatitis C antibody test positive 04/21/2015 Overview (04/22/2024): Negative viral load Emphysema with chronic bronchitis 04/18/2015 Overview (04/22/2024): Smokes cigars. Stable on LABA, MARTHA, inhaled steroid, and anticholinergic. B12 deficiency 04/23/2013 Overview (04/22/2024): Off replacement. 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 Resolved Problems Problem Noted Date Diagnosed Date Resolved Date PONCE (acute kidney injury) 04/22/2024 Encounters Date Type Department Care Team Description 01/27/2025 10:20 AM EST Office Visit [facility] [address] [place] [phone] Dejuan Hendricks MD Malignant neoplasm of urinary bladder, unspecified site (Primary Dx); Prostate cancer (CMS/HCC) 01/27/2025 9:30 AM EST Office Visit [facility] [address] [place] [address] Yolanda Tolentino, LINE PAINTING MACHINE OPERATOR Malignant neoplasm of urinary bladder, unspecified site (Primary Dx) 01/27/2025 Travel 01/20/2025 Orders Only External Location [address] [place] [address] Presley Knight PA 01/11/2025 7:56 AM EDT Anesthesia Event [facility] O[facility] RO[facility] [address] [place] [address] Dimitris Nielsen MD 01/11/2025 7:45 AM EDT - 01/11/2025 1:55 PM EDT Surgery [facility] [address] [place] [address] Dejuan Hendricks MD CYSTECTOMY [11783 (CPT )] 01/11/2025 5:42 AM EDT - 01/15/2025 2:39 PM EDT Hospital Encounter [facility] Inpatient [facility] [address] [place] [address] Dejuan Hendricks MD Bladder tumor (Primary Dx); Malignant neoplasm of urinary bladder, unspecified site (CMS/HCC); Bladder mass Discharge Disposition: Home or Self Care 01/11/2025 Orders Only External Location [address] [place] [address] Provider, External 01/11/2025 Travel 12/24/2024 1:15 PM EDT Pre-Admission Testing [facility] Pre[facility]op Clinic [address] [place] [address] 12/24/2024 Travel 11/26/2024 Telephone [facility] Medicine Specialties [address] [place] [address] Felicita Lindquist, ALFREDO 11/20/2024 9:20 AM EDT - 11/20/2024 11:59 PM EDT Hospital Encounter [facility] [address] [place] [address] Malignant neoplasm of posterior wall of urinary bladder (CMS/HCC) (Primary Dx) Discharge Disposition: Home or Self Care 11/20/2024 Orders Only [facility] [address] [place] [address] Joe Mcghee MD 11/20/2024 Travel 11/13/2024 8:30 AM EDT Office Visit [facility] Multidisciplinary Oncology Clinic [address] [place] [phone] Carlota Betts, LINE PAINTING MACHINE OPERATOR Malignant neoplasm of urinary bladder, unspecified site (CMS/HCC) (Primary Dx) 11/13/2024 Results Follow-Up [facility] Medicine Specialties [address] [place] [phone] Felicita Lindquist APRN 11/13/2024 Travel 11/09/2024 11:00 AM EDT Office Visit [facility] Medicine [facility]ties [address] [place] [phone] Felicita Lindquist, ALFREDO Chronic obstructive pulmonary disease, unspecified COPD type (CMS/HCC) (Primary Dx); Former smoker; Chronic hypoxic respiratory failure, on home oxygen therapy; Risk factors for obstructive sleep apnea; Allergic rhinitis, unspecified seasonality, unspecified trigger; Medication management 11/09/2024 10:00 AM EDT Ancillary Procedure [facility] [address] [place] [phone] Chronic obstructive pulmonary disease with (acute) exacerbation (CMS/HCC) 11/09/2024 Travel 11/06/2024 10:17 AM EDT - 11/06/2024 11:59 PM EDT Hospital Encounter [facility] Infusion [address] [place] [phone] Malignant neoplasm of posterior wall of urinary bladder (CMS/HCC) (Primary Dx) Discharge Disposition: Home or Self Care 11/06/2024 Travel 11/04/2024 11:20 AM EDT Office Visit [facility] Multidisciplinary Oncology Clinic [address] [place] [phone] Dejuan Hendricks MD Malignant neoplasm of urinary bladder, unspecified site (CMS/HCC) (Primary Dx) 11/04/2024 8:49 AM EDT - 11/04/2024 11:59 PM EDT Hospital Encounter [facility] Radiology [address] [place] [address] Malignant neoplasm of posterior wall of urinary bladder ([facility]) Discharge Disposition: Home or Self Care 11/04/2024 Travel from Last 3 Months Immunizations Immunization Administration Dates Next Due Influenza Vaccine, Quadrivalent, Adjuvanted 12/18 Influenza, High-dose, Split Virus, Trivalent, Injectable, preservative free 01/08/2024 Influenza, high-dose, quadrivalent 12/11/2021 Influenza, injectable, quadrivalent 01/10/2016,0 04/21/2015 Influenza, injectable, quadrivalent, preservativ e free 01/05/2015 Influenza, recombinant, quad rivalent, injectable, preservative free 02/23/2019 Influenza, seasonal, injectable 04/01/2013,12/27 Pneumococcal Conjugate PCV 13 02/23/2019 Pneumococcal Polysaccharide PPV23 09/08/2020 Rsv, Bivalent, Protein Subun it Rsvpref, Diluent Reconstituted, 0.5mL, PF 03/03/2024 Tdap 11/16/2012 Zoster, Recombinant 09/08/2020,06/17/2017 Family History Medical History Relation Name Comments Anesthesia problems Neg Hx Malig Hyperthermia Neg Hx Social History Tobacco Use Types Packs/Day Years Used Date Smoking Tobacco: Former Cigarettes 1 53.9 1 971 - 2024 Passive Smoke Exposure: Past Smokeless Tobacco: Never Tobacco Cessation:Counseling Given: Not Answered Alcohol Use Standard Drinks/Week Comments Not Currently [...] and Family Not on file 10/27/2024 Attends [employer] Not on file 10/27 Active Member [...] any time in the past 12 m [facility], were you homeless or living in a snf (including now)? No 01/13/2025 [facility] Utilities Answer Date Recorded In the past 12 months has [employer] electric, gas, oil, or water company threatened [...] Mass Index 28.22 01/27/2025 9:48 AM EST Plan of Treatment Upcoming Encounters Date Type Department Care Team (Late st Contact Info) Description 02/08/2025 1:30 PM EST Office Visit [facility] Medicine [facility] [address] [place] [address] Felicita Lindquist, LINE PAINTING MACHINE OPERATOR [address] [place] [address] 08/04/2025 9:40 AM EDT Appointment [facility] [address] [place] [address] 08/04/2025 12:00 PM EDT Office Visit [facility] [address] [place] [address] Dejuan Hendricks MD [address] [place] [phone] 08/04/2025 12:00 PM EDT Clinical Support [facility] [address] [place] [address] Health Maintenance Due Date Last Done Comments [facility]-Hepatitis C Screening 1955 [facility]-/Child/Adol SDOH Screenings [address] Colonography 02/17/2000 Colonoscopy 02/17/2000 FIT 02/17/2000 FOBT 02/17/2000 Sigmoidoscopy 02/17/2000 Lung Cancer Screening Shared Decision Making 2005 [facility]-DTaP,Tdap,and Td Vaccines (2 - Td or Tdap) 11/16/2022 11/16/2012 [id number] Vaccine (5 - season) 2024 12/11/2021, 03/01/2021, 06/22/2020, Additional history exists [facility]-Influenza Vaccine (#1) 11/16/202401/07, 12/11/2021, 01/15/2020, Additional history exists [facility]-Medicare Annual Wellness (AWV) 06/01/2025 06/01/2024 [facility]- SDOH Screenings 07/14/2025 [facility]-Adult SDOH Screenings 07/14/2025 01/13/2025 [facility]-Diabetes: Hemoglobin A1C 10/23/2025 10/23/2024 [facility]-Lung Cancer Screening 11/04/20252024, 10/23/2024, 09/09/2024, Additional history exists [facility]-Depression Screening 01/27/2026 025, 11/09/2024, 11/09/2024, Additional history exists FIT-DNA 09/11/2027 09/10/2024 [facility]-Colorectal Cancer Screening 09/11/2027 [facility]-Pneumococcal Vaccine: 50+ Years Completed 09/08/2020, 02/23/2019 [facility]-Zoster Vaccines Completed 09/08/2020, 8 [facility]-Abdominal Aortic Aneurysm (AAA) Screening Completed 12/30/2020, 12/30/2020 [facility]-RSV Vaccine: 60+ Years or Completed 03/03/2024 [facility]-Obesity Intervention Completed 025, 11/09/2024, 11/08/2024, Additional history exists HPV Vaccines Aged Out No longer eligi ble based on patient's age to complete this topic [facility]-HIB Vaccines Aged Out No longer e ligible based on patient's age to complete this topic [facility]-Hepatitis A Vaccines Aged Out No longer eligible based on patient's age to complete this topic [facility]-IPV Vaccines Aged Out No longer e ligible based on patient's age to complete this topic [facility]-Rotavirus Vaccines Aged Out No lo nger eligible based on patient's age to complete this topic Goals Goal Patient Goal Type Associated Problems Recent Progress Patient-Stated? Author Autogenerat ed Goal Care Plan Autogenerated Problem No Yolanda Houser Autogenerat ed Goal Care Plan Autogenerated Problem No Yolanda Houser Medical Devices Implanted Type Area Distance Learning Technician Device Identifier Shelf Expiration Date Model / Serial / Lot Knee Knee Left: Knee Plate Plate Left: Foot Stent Ureteral Diversion Flexi Lt 7fr X 70cm - [id number] - [id number] Implanted:Qty: 1 on 01/11/2025 by Dejuan Hendricks MD at [facility] [employer] [facility]-[id number] 08/29/2027 [id number] / [id number] / [id number] Stent Ureteral Diversion Flexi Lt 7fr X 70cm - [id number] - [id number] Implanted:Qty: 1 on 01/11/2025 by Dejuan Hendricks MD at [facility] [employer] [facility]-[id number] 09/30/2027 [id number] / [id number] / [id number] Procedures Procedure Name Priority Date/Time Associated Diagnosis Comments COMPREHENSIVE METABOLIC PANEL, PLASMA Routine 01/27/2025 8:50 AM EST Malignant neoplasm of urinary bladder, unspecified site CBC WITH AUTO DIFFERENTIAL Routine 01/27/2025 8:50 AM EST Malignant neoplasm of urinary bladder, unspecified site CT OUTSIDE IMAGES 01/20/2025 2:3 1 PM EST PHOSPHORUS, PLASMA Routine 01/15/2025 3: 33 AM EDT MAGNESIUM, PLASMA Routine 01/15/2025 3:3 3 AM EDT COMPREHENSIVE METABOLIC PANEL, PLASMA Routine 01/15/2025 3:33 AM EDT CBC W/O DIFFERENTIAL Routine 01/15/2025 3:33 AM EDT CREATININE, DRAIN FLUID Routine 01/15/20 5:14 PM EDT HEMOGLOBIN AND HEMATOCRIT, BLOOD Routine 01/14/2025 1:21 PM EDT PREPARE RBC Routine 01/14/2025 6:18 AM EDT PHOSPHORUS, PLASMA Routine 01/14/2025 2: 00 AM EDT MAGNESIUM, PLASMA Routine 01/14/2025 2:0 0 AM EDT COMPREHENSIVE METABOLIC PANEL, PLASMA Routine 01/14/2025 2:00 AM EDT CBC W/O DIFFERENTIAL Routine 01/14/2025 2:00 AM EDT PHOSPHORUS, PLASMA Routine 01/13/2025 4: 54 AM EDT MAGNESIUM, PLASMA Routine 01/13/2025 4:5 4 AM EDT COMPREHENSIVE METABOLIC PANEL, PLASMA Routine 01/13/2025 4:54 AM EDT CBC W/O DIFFERENTIAL Routine 01/13/2025 4:54 AM EDT POCT GLUCOSE METER UNSOLICITED RESULTS Routine 01/12/2025 12:25 PM EDT POCT GLUCOSE METER UNSOLICITED RESULTS Routine 01/12/2025 5:18 AM EDT BASIC METABOLIC PANEL, PLASMA Routine 01/12/2025 4:52 AM EDT CBC W/O DIFFERENTIAL Routine 01/12/2025 4:52 AM EDT POCT GLUCOSE METER UNSOLICITED RESULTS Routine 01/12/2025 12:11 AM EDT IONIZED CALCIUM, WHOLE BLOOD Routine 01/11/2025 4:12 PM EDT BASIC METABOLIC PANEL, PLASMA Routine 01/11/2025 3:15 PM EDT CBC W/O DIFFERENTIAL Routine 01/11/2025 3:15 PM EDT WOUND OSTOMY EVAL AND TREAT Routine 01/11/2025 2:51 PM EDT BLOOD GAS PANEL, ARTERIAL STAT 01/11/2025 1:41 PM EDT BLOOD GAS PANEL, ARTERIAL STAT 01/11/2025 11:27 AM EDT SURGICAL PATHOLOGY EXAM Routine 01/12/20 9:54 AM EDT Malignant neoplasm of urinary bladder, unspecified site PREPARE RBC STAT 01/11/2025 9:29 AM EDT PB POINT OF CARE IMAGING PLACEHOLDER Routine 01/11/2025 8:44 AM EDT PB ANESTHESIA NON-TIMED PROCEDURE PLACEHOLDER Routine 01/11/2025 8:32 AM EDT ANESTHESIA ULTRASOUND GUIDED Routine 01/11/2025 8:25 AM EDT PB ANESTHESIA NON-TIMED PROCEDURE PLACEHOLDER Routine 01/11/2025 8:25 AM EDT MT AN CENTRAL LINE TRIPLE LUMEN Routine 01/11/2025 8:25 AM EDT ANESTHESIA PERIPHERAL IV PLACEMENT Routine 01/11/2025 8:05 AM EDT PB ANESTHESIA PLACEHOLDER Routine 01/11/2025 8:03 AM EDT MT AN ELECTIVE ENDOTRACHEAL AIRWAY Routine 01/11/2025 8:03 AM EDT MT CYSTECTOMY,ILEAL CONDUIT/SIGMOID BLADDER 01/11/2025 7:41 AM EDT Malignant neoplasm of urinary bladder, unspecified site TYPE AND SCREEN Routine 01/11/2025 7:40 AM EDT POC ULTRASOUND 01/11/2025 COMPREHENSIVE METABOLIC PANEL, PLASMA Routine 11/20/2024 9:27 AM EDT Malignant neoplasm of posterior wall of urinary bladder (CMS/HCC) CBC WITH AUTO DIFFERENTIAL Routine 11/20/2024 9:27 AM EDT Malignant neoplasm of posterior wall of urinary bladder (CMS/HCC) IMMUNOGLOBULIN E Routine 11/09/2024 11:2 4 AM EDT Chronic obstructive pulmonary disease, unspecified COPD type (CMS/HCC) ALPHA 1 ANTITRYPSIN PHENOTYPE(INCLUDES [id number])SO (SO) Routine 11/09/2024 11:24 AM EDT Chronic obstructive pulmonary disease, unspecified COPD type (CMS/HCC) CBC WITH AUTO DIFFERENTIAL Routine 11/09/2024 11:24 AM EDT Chronic obstructive pulmonary disease, unspecified COPD type (CMS/HCC) HC PULM FUNCT TST PLETHYSMOGRAP - PLETHYSMOGRAPHY Routine 11/09/2024 10:33 AM EDT Chronic obstructive pulmonary disease with (acute) exacerbation (CMS/HCC) CBC WITH AUTO DIFFERENTIAL Routine 11/06/2024 10:47 AM EDT Malignant neoplasm of posterior wall of urinary bladder (CMS/HCC) COMPREHENSIVE METABOLIC PANEL, PLASMA Routine 11/06/2024 10:47 AM EDT Malignant neoplasm of posterior wall of urinary bladder (CMS/HCC) CT CHEST W IV CONTRAST Routine 10:17 AM EDT Malignant neoplasm of posterior wall of urinary bladder (CMS/HCC) CT UROGRAM Routine 11/04/2024 10:17 AM EDT Malignant neoplasm of posterior wall of urinary bladder (CMS/HCC) HEMOGLOBIN A1C Routine 10/23/2024 3:28 PM EDT from Last 3 Months or Most Recently Relevant to Health Maintenance Results * (ABNORMAL) CBC and Differential (01/27/2025 8:50 AM EST) Only the most recent of4 resultswithin the time period is included. WBC Count 6.67 3.70 - 10.30 10*3/uL LAB HEMATOLOGY METHOD 01/27/2025 9:23 AM EST [facility] RBC Count 2.91(L) 4.60 - 6.10 10*6/uL LAB HEMATOLOGY METHOD 01/27/2025 9:23 AM EST [facility] HGB 8.8(L) 13.7 - 17.5 g/dL LAB HEMATOLOGY METHOD 01/27/2025 9:23 AM EST [facility] HCT 28.7(L) 40.0 - 51.0 % LAB HEMATOLOGY METHOD 01/27/2025 9:23 AM EST [facility] Platelet Count 439(H) 155 - 369 10*3/uL LAB HEMATOLOGY METHOD 01/27/2025 9:23 AM EST [facility] MCV 99(H) 79 - 98 fL LAB HEMATOLOGY METHOD 01/27/2025 9:23 AM EST [facility] MCH 30.2 26.0 - 32.0 pg LAB HEMATOLOGY METHOD 01/27/2025 9:23 AM EST [facility] MCHC 30.7 30.7 - 35.5 g/dL LAB HEMATOLOGY METHOD 01/27/2025 9:23 AM EST [facility] RDW 15.4(H) 11.5 - 14.5 % LAB HEMATOLOGY METHOD 01/27/2025 9:23 AM EST [facility] MPV 8.8 8.8 - 12.5 fL LAB HEMATOLOGY METHOD 01/27/2025 9:23 AM EST [facility] nRBC 0.0 <=0.0 per 100 WBCs LAB HEMATOLOGY METHOD 01/27/2025 9:23 AM EST [facility] Differential Type Automated LAB HEMATOLOGY METHOD 01/27/2025 9:23 AM EST [facility] Neutrophils % 51 % LAB HEMATOLOGY METHOD 01/27/2025 9:23 AM EST [facility] Lymphocytes % 32 % LAB HEMATOLOGY METHOD 01/27/2025 9:23 AM EST [facility] Monocytes % 7 % LAB HEMATOLOGY METHOD 01/27/2025 9:23 AM EST [facility] Eosinophils % 9 % LAB HEMATOLOGY METHOD 01/27/2025 9:23 AM EST [facility] Basophils % 1 % LAB HEMATOLOGY METHOD 01/27/2025 9:23 AM EST [facility] Immature Granulocytes % 0 % LAB HEMATOLOGY METHOD 01/27/2025 9:23 AM EST [facility] Neutrophils Absolute 3.35 1.60 - 6.10 10*3/uL LAB HEMATOLOGY METHOD 01/27/2025 9:23 AM EST [facility] Lymphocytes Absolute 2.14 1.20 - 3.90 10*3/uL LAB HEMATOLOGY METHOD 01/27/2025 9:23 AM EST [facility] Monocytes Absolute 0.48 0.30 - 0.90 10*3/uL LAB HEMATOLOGY METHOD 01/27/2025 9:23 AM EST [facility] Eosinophils Absolute 0.63(H) 0.00 - 0.50 10*3/uL LAB HEMATOLOGY METHOD 01/27/2025 9:23 AM EST [facility] Basophils Absolute 0.04 0.00 - 0.10 10*3/uL LAB HEMATOLOGY METHOD 01/27/2025 9:23 AM EST [facility] Immature Granulocytes Absolute 0.03 0.00 - 0.06 10*3/uL LAB HEMATOLOGY METHOD 01/27/2025 9:23 AM EST [facility] Blood Venous blood specimen / Unknown Venipuncture / Unknown 01/27/2025 8:50 AM EST 01/27/2025 9:17 AM EST [facility] - 01/27/2025 9:23 AM EST Therapeutic decision making should be based on absolute values, rather than percentages. us Yolanda Tolentino LINE PAINTING MACHINE OPERATOR LAB BLOOD ORDERABLES Final Re sult [facility] [address] [place] [address] * (ABNORMAL) Comprehensive Metabolic Panel, Plasma (01/27/2025 8:50 AM EST) Only the most recent of6 resultswithin the time period is included. Glucose, Plasma 134(H) 74 - 99 mg/dL 01/27/2025 10:21 AM EST [facility] BUN, Plasma 13 8 - 23 mg/dL 01/27/2025 10:21 AM EST [facility] Creatinine, Plasma 0.96 0.70 - 1.20 mg/dL 01/27/2025 10:21 AM EST [facility] BUN/Creatinine Ratio 14 01/27/2025 10:21 AM EST [facility] Sodium, Plasma 140 136 - 145 mmol/L 01/27/2025 10:21 AM EST [facility] Potassium, Plasma 5.4(H) 3.6 - 4.9 mmol/L 01/27/2025 10:21 AM EST [facility] Chloride, Plasma 100 97 - 107 mmol/L 01/27/2025 10:21 AM EST [facility] CO2, Plasma 34(H) 22 - 29 mmol/L 01/27/2025 10:21 AM EST [facility] Anion Gap 6 6 - 16 mmol/L 01/27/2025 10:21 AM EST [facility] Total Calcium, Plasma 9.5 8.9 - 10.2 mg/dL 01/27/2025 10:21 AM EST [facility] Total Protein 7.1 6.3 - 7.9 g/dL 01/27/2025 10:21 AM EST [facility] Albumin, Plasma 3.7 3.5 - 5.2 g/dL 01/27/2025 10:21 AM EST [facility] AST, Plasma 16 10 - 50 U/L 01/27/2025 10:21 AM EST [facility] ALT, Plasma 13 10 - 50 U/L 01/27/2025 10:21 AM EST [facility] Alkaline Phosphatase, Plasma 64 40 - 115 U/L 01/27/2025 10:21 AM EST [facility] Total Bilirubin, Plasma 0.2 0.2 - 1.1 mg/dL 01/27/2025 10:21 AM EST [facility] eGFRcr 85.6 mL/min/1.7 3m*2 01/27/2025 10:21 AM EST [facility] Comment:Reported eGFRcr in m L/min/1.73m2 is based the CKD-EPI 2020 equation that does not use a race coefficient. Blood Venous blood specimen / Unknown Venipuncture / Unknown 01/27/2025 8:50 AM EST 01/27/2025 9:52 AM EST us Yolanda Tolentino LINE PAINTING MACHINE OPERATOR LAB BLOOD ORDERABLES Final Re sult [facility] [address] [place] [address] * CT OUTSIDE IMAGES (01/20/2025 2:31 PM EST) Anatomical Region Laterality Modality Computed Tomogra phy 01/20/2025 2:31 PM EST Presley BRYAN IMG CT PROCEDURES Edited Resul t - Final * (ABNORMAL) CBC W/O Differential (01/15/2025 3:33 AM EDT) Only the most recent of5 resultswithin the time period is included. WBC Count 9.66 3.70 - 10.30 10*3/uL LAB HEMATOLOGY METHOD 01/15/2025 3:51 AM EDT [facility] RBC Count 2.40(L) 4.60 - 6.10 10*6/uL LAB HEMATOLOGY METHOD 01/15/2025 3:51 AM EDT [facility] HGB 7.5(L) 13.7 - 17.5 g/dL LAB HEMATOLOGY METHOD 01/15/2025 3:51 AM EDT [facility] HCT 22.7(L) 40.0 - 51.0 % LAB HEMATOLOGY METHOD 01/15/2025 3:51 AM EDT [facility] Platelet Count 214 155 - 369 10*3/uL LAB HEMATOLOGY METHOD 01/15/2025 3:51 AM EDT [facility] MCV 95 79 - 98 fL LAB HEMATOLOGY METHOD 01/15/2025 3:51 AM EDT [facility] MCH 31.3 26.0 - 32.0 pg LAB HEMATOLOGY METHOD 01/15/2025 3:51 AM EDT [facility] MCHC 33.0 30.7 - 35.5 g/dL LAB HEMATOLOGY METHOD 01/15/2025 3:51 AM EDT [facility] RDW 15.8(H) 11.5 - 14.5 % LAB HEMATOLOGY METHOD 01/15/2025 3:51 AM EDT [facility] MPV 9.7 8.8 - 12.5 fL LAB HEMATOLOGY METHOD 01/15/2025 3:51 AM EDT [facility] nRBC 0.2(H) <=0.0 per 100 WBCs LAB HEMATOLOGY METHOD 01/15/2025 3:51 AM EDT [facility] Blood Venous blood specimen / Unknown Venipuncture / Unknown 01/15/2025 3:33 AM EDT 01/15/2025 3:40 AM EDT Dejuan Hendricks MD LAB BLOOD ORDERABLES Final Re sult Performing Organization Address City/[facility]/ZIP Co de Phone Number [facility] [address] [place] [address] * Phosphorus (01/15/2025 3:33 AM EDT) Only the most recent of3 resultswithin the time period is included. Phosphorus, Plasma 3.5 2.5 - 4.5 mg/dL 01/15/2025 4:09 AM EDT [facility] Blood Venous blood specimen / Unknown Venipuncture / Unknown 01/15/2025 3:33 AM EDT 01/15/2025 3:40 AM EDT us Dejuan Hendricks MD LAB BLOOD ORDERABLES Final Re sult Performing Organization Address City/[facility]/ZIP Co de Phone Number [facility] [address] [place] [address] * (ABNORMAL) Magnesium (01/15/2025 3:33 AM EDT) Only the most recent of3 resultswithin the time period is included. Magnesium, Plasma 1.8(L) 1.9 - 2.4 mg/dL 01/15/2025 4:09 AM EDT [facility] Blood Venous blood specimen / Unknown Venipuncture / Unknown 01/15/2025 3:33 AM EDT 01/15/2025 3:40 AM EDT Dejuan Hendricks MD LAB BLOOD ORDERABLES Final Re sult Performing Organization Address [facility]/ZIP Co de Phone Number [facility] [address] [place] [address] * Creatinine, Drain Fluid (01/14/2025 5:14 PM EDT) Pathologist [facility] Creatinine, Fluid 0.70 mg/dL 01/14/2025 7:38 PM EDT [facility] Fluid Drainage fluid specimen / Unknown 01/14/2025 5:14 PM EDT 01/14/2025 6:18 PM EDT Narrative [facility] - 01/14/2025 7:38 PM EDT Reference Values: No established reference interval. Results should be interpreted in comparison to the concentration in blood and in conjunction with the clinical context. This test was developed and its performance characteristics determined by [facility]. The U.S. Food and Drug [...] OR DERABLES Final Result Performing Organization Address City/[facility]/ZIP Co de Phone Number [facility] [address] [place] [address] * (ABNORMAL) Hemoglobin and Hematocrit, Blood (01/14/2025 1:21 PM EDT) HGB 9.1(L) 13.7 - 17.5 g/dL LAB HEMATOLOGY METHOD 01/14/2025 1:58 PM EDT [facility] HCT 28.3(L) 40.0 - 51.0 % LAB HEMATOLOGY METHOD 01/14/2025 1:58 PM EDT [facility] Blood Venous blood specimen / Unknown Venipuncture / Unknown 01/14/2025 1:21 PM EDT 01/14/2025 1:45 PM EDT Dejuan Hendricks MD LAB BLOOD ORDERABLES Final Re sult Performing Organization Address City/[facility]/ZIP Co de Phone Number [facility] [address] [place] [address] * Prepare Leukocyte Reduced RBC: 1 Units (01/14/2025 6:18 AM EDT) [facility] Product Code P0452T31 CH BLOO D BANK Dispense Status Transfused BLOOD BANK Blood Expiration Date [id number] BLOOD BANK Unit Number [id number] CH B LOOD BANK Product Blood Type 5100 BLOOD BANK Blood Type O+ BLOOD BANK Crossmatch Compatible BLOOD BANK Other Dejuan Hednricks MD BLOOD BANK PRODUCT ORDERABLES Final Result Performing Organization Address [facility] Co de Phone Number BLOOD BANK [address] [place] [address] * (ABNORMAL) POCT glucose meter (01/12/2025 12:25 PM EDT) Only the most recent of3 resultswithin the time period is included. [facility] POCT Glucose 114(H) 74 - 99 mg/dL 01/12/2025 12:26 PM EDT [facility] Comment:Accuracy of a [...] for testing. Comment 01/12/2025 12:26 PM EDT [facility] Manager Services ID Lanette Mercedes 01/12/2025 12:26 PM EDT [facility] Device ID [id number] 01/12/2025 12:26 PM EDT [facility] Specimen Type POC Capillary 01/12/2025 12:26 PM EDT [facility] Blood Capillary blood specimen / Unknown 01/12/2025 12:25 PM EDT 01/12/2025 12:26 PM EDT Dejuan Hendricks MD LAB POINT OF CARE TE ST DOCKED DEVICE UNSOLICITED RESULTS Final Result [facility] [address] [place] [address] * (ABNORMAL) Basic Metabolic Panel, Plasma (01/12/2025 4:52 AM EDT) Only the most recent of2 resultswithin the time period is included. Glucose, Plasma 120(H) 74 - 99 mg/dL 01/12/2025 5:44 AM EDT [facility] BUN, Plasma 22 8 - 23 mg/dL 01/12/2025 5:44 AM EDT [facility] Creatinine, Plasma 0.92 0.70 - 1.20 mg/dL 01/12/2025 5:44 AM EDT [facility] BUN/Creatinine Ratio 24 01/12/2025 5:44 AM EDT [facility] Sodium, Plasma 136 136 - 145 mmol/L 01/12/2025 5:44 AM EDT [facility] Potassium, Plasma 6.2(H) 3.6 - 4.9 mmol/L 01/12/2025 5:44 AM EDT [facility] Chloride, Plasma 105 97 - 107 mmol/L 01/12/2025 5:44 AM EDT [facility] CO2, Plasma 25 22 - 29 mmol/L 01/12/2025 5:44 AM EDT [facility] Anion Gap 6 6 - 16 mmol/L 01/12/2025 5:44 AM EDT [facility] Total Calcium, Plasma 8.2(L) 8.9 - 10.2 mg/dL 01/12/2025 5:44 AM EDT [facility] eGFRcr 90.0 mL/min/1.7 3m*2 01/12/2025 5:44 AM EDT [facility] Comment:Reported eGFRcr in m L/min/1.73m2 is based the CKD-EPI 2020 equation that does not use a race coefficient. Blood Venous blood specimen / Unknown Venipuncture / Unknown 01/12/2025 4:52 AM EDT 01/12/2025 5:10 AM EDT Dejuan Hendricks MD LAB BLOOD ORDERABLES Final Re sult Performing Organization Address City/[facility]/ZIP Co de Phone Number [facility] [address] [place] [address] * (ABNORMAL) Ionized calcium, whole blood (01/11/2025 4:12 PM EDT) Ionized Calcium, Whole Blood 4.5(L) 4.6 - 5.1 mg/dL LAB HEMATOLOGY METHOD 01/11/2025 4:37 PM EDT [facility] Blood Arterial blood specimen / Unknown Venipuncture / Unknown 01/11/2025 4:12 PM EDT 01/11/2025 4:34 PM EDT Dejuan Hendricks MD LAB BLOOD ORDERABLES Final Re sult Performing Organization Address [facility] Co de Phone Number [facility] [address] [place] [address] * (ABNORMAL) Blood gas panel, arterial (01/11/2025 1:41 PM EDT) Only the most recent of2 resultswithin the time period is included. pH, Arterial 7.33 7.31 - 7.42 LAB HEMATOLOGY METHOD 01/11/2025 1:41 PM EDT [facility] pCO2, Arterial 50(H) 32 - 45 mmHg LAB HEMATOLOGY METHOD 01/11/2025 1:41 PM EDT [facility] pO2, Arterial 228 >80 mmHg LAB HEMATOLOGY METHOD 01/11/2025 1:41 PM EDT [facility] SO2, Measured, Arterial 100(H) 94 - 98 % LAB HEMATOLOGY METHOD 01/11/2025 1:41 PM EDT [facility] Base Excess, Arterial -0.2 -2.0 - 3.0 mmol/L LAB HEMATOLOGY METHOD 01/11/2025 1:41 PM EDT [facility] Bicarbonate, Calculated, Arterial 26 22 - 26 mmol/L LAB HEMATOLOGY METHOD 01/11/2025 1:41 PM EDT [facility] Hematocrit, Whole Blood 33.0(L) 40.0 - 51.0 % LAB HEMATOLOGY METHOD 01/11/2025 1:41 PM EDT [facility] Sodium, Whole Blood 140 136 - 145 mmol/L LAB HEMATOLOGY METHOD 01/11/2025 1:41 PM EDT [facility] Potassium, Whole Blood 4.5 3.6 - 4.9 mmol/L LAB HEMATOLOGY METHOD 01/11/2025 1:41 PM EDT [facility] Chloride, Whole Blood 106 97 - 107 mmol/L LAB HEMATOLOGY METHOD 01/11/2025 1:41 PM EDT [facility] Glucose, Whole Blood 131(H) 74 - 99 mg/dL LAB HEMATOLOGY METHOD 01/11/2025 1:41 PM EDT [facility] Ionized Calcium, Whole Blood 4.5(L) 4.6 - 5.1 mg/dL LAB HEMATOLOGY METHOD 01/11/2025 1:41 PM EDT [facility] Lactate, Arterial, Whole Blood 2.2(H) 0.5 - 1.6 mmol/L LAB HEMATOLOGY METHOD 01/11/2025 1:41 PM EDT [facility] Blood Arterial blood specimen / Unknown 01/11/2025 1:39 PM EDT us Geremias Caballero [facility] LAB BLOOD ORDERABLES Final Result [facility] [address] [place] [address] * Surgical Pathology Exam (01/11/2025 9:54 AM EDT) Case Report Surgical Pathology Case: [id number] Authorizing Provider: Dejuan Hendricks MD Collected: 01/11/2025 [...] Nodes E) - Bladder 4:[address] [facility] Addendum This addendum is to document the provided clinical history. There is no change in the final diagnosis. Malignant neoplasm of urinary bladder 4:42 PM [facility] Addendum electronically signed by Rochelle Marmolejo MD [...] NEGATIVE FOR TUMOR. - SEE SYNOPTIC CHECKLIST. 4:42 PM [facility] at 1214 EDT Comment:This is an appended [...] nodes submitted or found) 5 4:42 PM [facility] Clinical Information No Dx Found. 5 4:42 PM [facility] Comment:This is an appended report. These results have been appended to a previously preliminary verified report. Intraoperative Consultation A. RIGHT DISTAL URETER- FROZEN Negative for malignancy. B. LEFT DISTAL URETER- FROZEN NEGATIVE FOR CARCINOMA 5 4:42 PM [facility] Comment:Corrected result: Pr eviously reported as [...] ranging from 0.7-0.8 cm in greatest dimension. Lithographic Etcher sections are submitted as follows: C1 3 [...] ranging from 0.7-3.0 cm in greatest dimension. Lithographic Etcher sections are submitted as follows: D1 3 [...] apex to base by 3.0 cm from jpio-vu-kqsyh by 1.5 cm from anterior to posterior, [...] cut surface with no lesions grossly identified. Lithographic Etcher sections of specimen are submitted as follows: [...] posterior Cold Time: 2h 25m Cherry Drake 4:42 PM [facility] Comment:This is an appended report. These results have been appended to a previously preliminary verified report. Note: A resident was involved in the service. I attest I examined the relevant preparations for the specimens and confirmed the diagnosis or interpretation. 4:42 PM [facility] Comment:This is an appended report. These [...] PATHOLOGY ORDERABLES Edit ed Result - Final [facility] [address] [id number] * PB POINT OF CARE IMAGING PLACEHOLDER [...] monitoring: continuous pulse ox, heart rate and cardiac exercise specialist Block type: TAP Laterality: right and left [...] rate change: no Slow fractionated injection: yes us Talha Chi MD ANESTHESIA ORDERABLES Final Resu [...] procedure well with no complications. Staffing Performed: NURSE UNIT MANAGER NURSE UNIT MANAGER: Geremias Caballero CRNA Dimitris Nielsen MD ANESTHESIA ORDERABLES F inal Result * MT AN CENTRAL LINE TRIPLE LUMEN, PB ANESTHESIA [...] sterile technique maintained during placement Staffing Performed: NURSE UNIT MANAGER NURSE UNIT MANAGER: Geremias Caballero CRNA Dimitris Nielsen MD ANESTHESIA [...] MD ANESTHESIA ORDERABLES F inal Result * MT AN ELECTIVE ENDOTRACHEAL AIRWAY, PB ANESTHESIA PLACEHOLDER (01/11/2025 8:03 AM EDT) Narrative Geremias Caballero CRNA - 01/11/2025 8:03 AM EDT Geremias Caballero CRNA 01/11/2025 8:14 AM Airway Date/Time: 01/11/2025 8:03 AM Reason: elective Airway not difficult General Information and Staff Patient location during procedure: OR NURSE UNIT MANAGER: Geremias Caballero CRNA Performed: CESARIO Patient Condition [...] Additional Comments Atraumatic. No change to dentition. us Dimitris Nielsen MD ANESTHESIA ORDERABLES F inal Result * Type and Screen (01/11/2025 7:40 AM EDT) ABO/Rh O Positive 01/11/2025 7:49 AM EDT BLOOD BANK Antibody Screen Negative 01/11/2025 7:49 AM EDT BLOOD BANK Specimen Expiration 01/14/2025 23:59 01/11/2025 7:49 AM EDT BLOOD BANK Blood Venous blood specimen / Unknown Venipuncture / Unknown 01/11/2025 7:40 AM EDT 01/11/2025 7:48 AM EDT Geremias Caballero CRNA LAB BLOOD BANK TEST ORDERA BLES Final Result Performing Organization Address [facility]/ZIP Co de Phone Number BLOOD BANK [address] [place] [address], [place] * POC Imaging (01/11/2025) Anatomical Region Laterality Modality Pelvis Other 01/11/2025 External Provider IMG POINT OF CARE ULTRASOUND F inal Result * Ouwra-3-Vvrlrphtgok Enzyme Conc and Phenotype (SO) (11/09/2024 11:24 AM EDT) ALPHA 1 ANTITRYPSIN 171 90 - 200 mg/dL 11/12/2024 10:29 PM EDT [facility] ([employer]) A1A Phenotype M1M2 11/12/2024 10:29 PM EDT [facility] ([employer]) Blood Venous blood specimen / Unknown Venipuncture / Unknown 11/09/2024 11:24 AM EDT 11/09/2024 11:24 AM EDT Narrative [facility] ([employer]) - 11/12/2024 10:29 PM EDT To convert to umol/L, multiply mg/dL by 0.185 Clinical Interpretation: The patient appears to have a normal phenotype. All M alleles (including subtypes M1, M2, and M3) produce normal serum concentrations of dpcbq-2-cplbogpi inhibitor and are not associated with clinical disease. Caution in interpretation is advised if the patient has been transfused within the previous 21 days. Performed By: [email or web address] [address] [place] [address] Planner/Scheduler: Neil Hernández MD, PhD CLIA Number: [id number] Felicita Lindquist APRN LAB BLOOD ORDERABLES Yashira l Result Performing Organization Address City/[facility] Co de Phone Number [facility] [employer]) [address] [place] [address] * (ABNORMAL) IgE (11/09/2024 11:24 AM EDT) [facility] Immunoglobulin E 528(H) <=214 kU/L 11/13/19 6:39 AM EDT [facility] ([facility]) Blood Venous blood specimen / Unknown Venipuncture / Unknown 11/09/2024 11:24 AM EDT 11/09/2024 11:24 AM EDT Narrative [facility] ([facility]) - 11/12/2024 6:39 AM EDT REFERENCE INTERVAL: Immunoglobulin E, Serum Access complete set of age- and/or gender-specific reference intervals for this test in the [facility] Test Directory ([employer]). Performed By: [email or web address] [address] [place] [address] Planner/Scheduler: Neil Hernández MD, PhD CLIA Number: [id number] us Felicita Lindquist APRN LAB BLOOD ORDERABLES Yashira l Result [facility]) [address] [place] [address] * (ABNORMAL) Pulmonary function testing (11/09/2024 10:33 AM EDT) [facility] [id number] 2.31(A) 3.39 - 5.75 L VYAIRE PFT FYA4UVQ 1.89(A) 3.39 - 5.75 L VYAIRE PFT FVC PRED 4.56 VYAIRE PFT FVC LLN 3.39 VYAIRE PFT FVCPREZSCORE -3.79 VYAIRE PFT FVCPRE%PRED 41 % % VYAIRE PFT FVCPOSTZSCORE -3.18 VYAIRE PFT FVCPOST%PRED 51 % % VYAIRE PFT FVCCHNG 425.00 VYAIRE PFT FVC%CHG 22 % % VYAIRE PFT FVC PREDAUT US_[facility] GLI (2011) VYAIRE PFT FVC Z-SCORE -3.79 -3.18 VYAIRE PFT YXM91DCXP 1.29(A) 2.48 - 4.32 L VYAIRE PFT FEV1 PRE 1.04(A) 2.48 - 4.32 L VYAIRE PFT FEV1 PRED 3.43 VYAIRE PFT FEV1 LLN 2.48 VYAIRE PFT SWK9JFJTNHYHV -3.84 VYAIRE PFT FEV1_Pre%Pred 30 % % VYAIRE PFT GDD8VRRRWFASMN -3.48 VYAIRE PFT DKK7WQLC%PRED 38 % % VYAIRE PFT DNT7SKRA 256.89 VYAIRE PFT FEV1%CHG 25 % % VYAIRE PFT FEV1 PREDAUTH [facility] ([facility]) VYAIRE PFT FEV1 Z-SCORE -3.84 -3.48 VYAIRE PFT XPV4SDM6GEHR 55.95(A) 62.39 - 87.43 % VYAIRE PFT FEV1/FVC PRE 54.94(A) 62.39 - 87.43 % VYAIRE PFT PTN7RFJPHOH 76 VYAIRE PFT QYD6WUSGKV 62 VYAIRE PFT IGE6FCFHUFRUGTZA -2.46 VYAIRE PFT CJZ5QGVXOB%PRED 73 % % VYAIRE PFT QIB1ERTQPAOLVPSFA -2.36 VYAIRE PFT VWC8KMKKEOL%PRED 74 % % VYAIRE PFT EVW4YWIDCHW 1,011 VYAIRE PFT APL7MOU%CHG 2 % % VYAIRE PFT ZLD6NPHSDUHT [facility] (2011) VYAIRE PFT XFN6CARWHNAPI -2 -2 VYAIRE PFT VDT86-77%_POST 0.57(A) 1.13 - 4.63 L/s VYAIRE PFT NDF16-43% PRE 0.49(A) 1.13 - 4.63 L/s VYAIRE PFT ESC14-06%_Pred 2.58 VYAIRE PFT CBY6961%LLN 1.13 VYAIRE PFT GBI5271%PREZSCORE -2.74 VYAIRE PFT TYQ2715%PRE%PRED 19 % % VYAIRE PFT BJV9426%POSTZSCORE -2.58 VYAIRE PFT MOX5817%POST%PRED 22 % % VYAIRE PFT FQN6039%CHNG 77.27 VYAIRE PFT SHW0879%%CHG 16 % % VYAIRE PFT CWD3544%[facility] GLI (2011) VYAIRE PFT FQD7RSEJ 3.42(A) 6.46 - 11.37 L/s VYAIRE PFT PEF PRE 6.11(A) 6.46 - 11.37 L/s VYAIRE PFT PEF PRED 8.91 VYAIRE PFT PEF LLN 6.46 VYAIRE PFT PEFPREZSCORE -1.89 VYAIRE PFT PEFPRE%PRED 68 % % VYAIRE PFT PEFPOSTZSCORE -3.69 VYAIRE PFT PEFPOST%PRED 38 % % VYAIRE PFT PEFCHNG -2,690.00 VYAIRE PFT PEF%CHG -44 % % VYAIRE PFT [facility]F [facility]ED[facility] NHANES III (1998) VYAIRE PFT UPLIXSPIQOBLMYMV8QOU 13.05(A) 20.21 - 36.07 ml/(min* mmHg) VYAIRE PFT DLCOSINGLEBREATH PRED 27.45 VYAIRE PFT DLCOSINGLEBREATH LLN 20.21 VYAIRE PFT DLCOSINGLEBREATH Z-SCORE -3.67 VYAIRE PFT DLCOSINGLEBREATH % PRED 47.6 % VYAIRE PFT DLCOSINGLEBREATH PREDSpanish [facility] GLI (2019) VYAIRE PFT DLCOSINGLEBREATH Z-SCORE -3.67 11/09/2024 10:26 AM EDT VYAIRE PFT QVSBMRYXGRPZFPDTA7EJ E 14.81(A) 20.21 - 36.07 ml/(min* mmHg) VYAIRE PFT DLCOCSINGLEBREATH PRED 27.45 VYAIRE PFT DLCOCSINGLEBREATH LLN 20.21 VYAIRE PFT DLCOCSINGLEBREATH Z-SCORE -3.12 VYAIRE PFT DLCOCSINGLEBREATH % PRED 54.0 % VYAIRE PFT DLCOCSINGLEBREATH PREDAUTH Stanojevic TLCO GLI (2019) VYAIRE PFT SHLDNW9LWR 3.21 2.98 - 5.13 ml/(min* mmHg*L) VYAIRE PFT DLCOVAPRED 4.01 VYAIRE PFT DLCOVALLN 2.98 VYAIRE PFT DLCOVAZSCORE -1.25 VYAIRE PFT DLCOVA%PRED 80.2 % VYAIRE PFT DLCOVAPREDAUTH Stanojevic TLCO GLI (2019) VYAIRE PFT DLCOVAZSCORE -1.25 11/09/2024 10:26 AM EDT VYAIRE PFT WMGWELZKZ3QQA 3.65 2.98 - 5.13 ml/(min* mmHg*L) VYAIRE PFT DLCOC SB/VA PRED 4.01 VYAIRE PFT DLCOC SB/VA LLN 2.98 VYAIRE PFT DLCOC SB/VA Z-SCORE -0.56 VYAIRE PFT DLCOC SB/VA % PRED 91.0 % VYAIRE PFT DLCOC SB/VA PREDAUT Stanojevic TLCO GLI (2019) VYAIRE PFT DLCOC SB/VA Z-SCORE -0.56 11/09 10:26 AM EDT VYAIRE PFT LWJBNYMQCEMYLW8DNH 4.06(A) 5.55 - 8.33 L VYAIRE PFT VASINGLEBREATH PRED 6.89 VYAIRE PFT VASINGLEBREATH LLN 5.55 VYAIRE PFT VASINGLEBREATH Z-SCORE -3.66 VYAIRE PFT VASINGLEBREATH % PRED 59.0 % VYAIRE PFT VASINGLEBREATH PREDAUT Stanojevic TLCO GLI (2019) VYAIRE PFT VASINGLEBREATH Z-SCORE -3.66 11/09/2024 10:26 AM EDT VYAIRE PFT EMFINGKBDKZJPKK1ECU 2.21(A) 3.39 - 5.75 L VYAIRE PFT IVCSINGLEBREATH PRED 4.56 VYAIRE PFT IVCSINGLEBREATH LLN 3.39 VYAIRE PFT IVCSINGLEBREATH Z-SCORE -3.33 VYAIRE PFT IVCSINGLEBREATH % PRED 48.5 % VYAIRE PFT IVCSINGLEBREATH PREDLOS [facility]AM[facility] US_[facility] GLI (2011) VYAIRE PFT CHRISTIANO% VCMAX PRE 97.80 % VYAIRE PFT TLC SB PRE 4.24(A) 6.05 - 9.24 L VYAIRE PFT TLCSINGLEBREATH PRED 7.63 VYAIRE PFT TLCSINGLEBREATH LLN 6.05 VYAIRE PFT TLCSINGLEBREATH Z-SCORE -3.55 VYAIRE PFT TLCSINGLEBREATH % PRED 55.5 % VYAIRE PFT TLCSINGLEBREATH PREDLovering [facility] Lung volumes GLI (2019)__ VYAIRE PFT HB PRE 11.00 g(Hb)/dL VYAIRE PFT IEZ4QNZ 5.89(A) 6.05 - 9.24 L VYAIRE PFT TLCPRED 7.63 VYAIRE PFT TLCLLN 6.05 VYAIRE PFT TLCULN 9.24 VYAIRE PFT TLCZSCORE -1.81 VYAIRE PFT TLC%PRED 77.1 % VYAIRE PFT TLCPREDLovering Colony State Hospital Lung volumes GLI (2019)__ VYAIRE PFT VC0PRE 2.26(A) 3.39 - 5.75 L VYAIRE PFT VCPRED 4.56 VYAIRE PFT VCLLN 3.39 VYAIRE PFT VCULN 5.75 VYAIRE PFT VCZSCORE -3.25 VYAIRE PFT VC%PRED 49.6 % VYAIRE PFT VCPREDAUTMOUNTAIN [facility] GLI (2011) VYAIRE PFT IC0PRE 1.40(A) 2.46 - 4.56 L VYAIRE PFT ICPRED 3.53 VYAIRE PFT ICLLN 2.46 VYAIRE PFT ICULN 4.56 VYAIRE PFT IC Z-SCORE -3.17 VYAIRE PFT IC%PRED 39.7 % VYAIRE PFT ICPREDAUTOhio[facility] Lung volumes GLI (2019)__ VYAIRE PFT VWIJAANR6IMS 4.49 2.89 - 5.74 L VYAIRE PFT FRCPLETH PRED 4.16 VYAIRE PFT FRCPLETH LLN 2.89 VYAIRE PFT FRCPLETH ULN 5.74 VYAIRE PFT FRCPLETH Z-SCORE 0.37 VYAIRE PFT FRCPLETH % PRED 107.9 % VYAIRE PFT FRCPLETH PREDAUTH [facility] Lung volumes GLI (2019)__ VYAIRE PFT VWW6VBF 0.86 0.44 - 2.76 L VYAIRE PFT ERVPRED 1.38 VYAIRE PFT ERVLLN 0.44 VYAIRE PFT ERVULN 2.76 VYAIRE PFT ERV Z-SCORE -0.81 VYAIRE PFT ERV%PRED 62.2 % VYAIRE PFT ERVPREDAUTH [facility] Lung volumes GLI (2019)__ VYAIRE PFT RV0PRE 3.63 1.60 - 3.99 L VYAIRE PFT RVPRED 2.69 VYAIRE PFT RVLLN 1.60 VYAIRE PFT RVULN 3.99 VYAIRE PFT RVZSCORE 1.21 VYAIRE PFT RV%PRED 134.9 % VYAIRE PFT RVPREDAUT [facility] volumes GLI (2019)__ VYAIRE PFT RV%BUN2VKF 61.62(A) 23.92 - 46.48 % VYAIRE PFT RV%TLCPRED 35 VYAIRE PFT RV%TLCLLN 24 VYAIRE PFT RV%TLCULN 46 VYAIRE PFT RV%TLCZSCORE 3.72 VYAIRE PFT RV%TLC%PRED 176.3 % VYAIRE PFT RV%TLCPREDAUT [facility] Lung volumes GLI (2019)__ VYAIRE PFT Anatomical Region Laterality Modality PFT 11/09/2024 9:58 AM EDT Narrative 11/10/2024 2:43 PM EDT Pulmonary Function Testing Report Ronaldo Islas 69 y.o. underwent pulmonary function testing today at the [facility]. The patient underwent spirometry, lung volumes by body plethysmography, and diffusion capacity testing testing. All tests were appropriately administered via ATS/ERS criteria. Testing is acceptable and repeatable. Spirometry: Reduced FEV1, FVC, and ratio with reduced TLC consistent with a mixed obstructive and restrictive process. The obstruction is classified as moderate. There is a significant positive bronchodilator response. Lung Volumes: Reduced TLC with RV/TLC >95th % and normal FEV1/FVC suggests complex restriction. Diffusion Capacity: Diffusion capacity corrected for Hb is moderately reduced. A reduced DLCO with a low VA and low/normal KCO is a pattern that may suggest loss of alveolar capillary structure with loss of lung volume in conditions such as emphysema and ILD. Trend: There are no prior studies for comparison. us Felicita Lindquist APRN PFT ORDERABLES Final Res ult * CT Urogram (11/04/2024 10:17 AM EDT) Anatomical Region Laterality Modality Abdomen, Pelvis Computed Tomogra phy Impressions 11/04/2024 11:10 AM EDT Chest: No evidence of disease progression. Abdomen/Pelvis: Intervally reduced thickness along the anterior aspect of the bladder near the dome when compared back to 09/09/2024, measuring up to 8 mm. No soft tissue filling defects within the upper tracts. No abdominopelvic adenopathy. CRITICAL RESULT: No. COMMUNICATION: Per this written report. Drafted by Darby Huerta MD on 11/04/2024 10:51 AM Final report signed by Darby Huerta MD on 11/04/2024 11:10 AM Narrative 11/04/2024 11:10 AM EDT CLINICAL INDICATION: Bladder Cancer TECHNIQUE: Multiple axial CT images were obtained from thoracic inlet through pubic symphysis following administration of IV contrast, Omnipaque 300, 100 mL. Reformatted images in the coronal and sagittal planes were generated from the axial data set to facilitate diagnostic accuracy. Total DLP (Dose-Length Product): 1151.97 mGy.cm (accession [id number]), 1151.97 mGy.cm (accession [id number]) Please note: The reported value represents the total of one or more individual components during the CT acquisition on this date and at this time, and as such, the same value may appear in more than one CT report depending on the interpreting/reporting [...] The bilateral pelvicalyceal systems opacify normally without evidence of soft tissue filling defects. No suspicious renal parenchymal mass lesions. The bilateral ureters are normal in course and caliber.. There is [...] osseous lesions. No suspicious body wall findings. Procedure Note Darby Huerta MD - 11/04/2024 CLINICAL INDICATION: Bladder Cancer TECHNIQUE: Multiple axial CT images were obtained from thoracic inlet through pubicsymphysis following administration of IV contrast, Omnipaque 300, 100 mL.Reformatted images in the coronal and sagittal planes were generated fromthe axial data set to facilitate diagnostic accuracy. Total DLP (Dose-Length Product): 1151.97 mGy.cm (accession [id number]),1151.97 mGy.cm (accession [id number]) Please note: The reported valuerepresents the total of one or more individual components during the CTacquisition on this date and at this time, and as such, the same value mayappear in more than one CT report depending on the interpreting/reportingphysicians. COMPARISON: CT chest/abdomen/pelvis from 10/23/2024 and 09/09/2024 FINDINGS: Chest: Lymph Nodes and Mediastinum: A pretracheal lymph node measuring 11 mm isunchanged. No enlarging thoracic lymph nodes. No mediastinal mass lesions.No suspicious thyroid findings. Cardiovascular: The heart is normal in caliber. Thoracic great vessels arepatent. Lungs and Pleura: Central airways are patent. Emphysematous change is mostprominent in the upper lobes. Atelectasis and/or scarring at the lungbases. A 3 mm nodule within the right lower lobe is stable (series 4 [id number]). No enlarging pulmonary nodules. No pleural effusions or suspiciousthickening. Musculoskeletal and Body Wall: No clearly aggressive bone lesions. Nosuspicious body wall findings. Abdomen/Pelvis: Kidneys, Ureters, Bladder: Precontrast imaging demonstrates no evidence ofurinary tract calculi. After the administration of intravenous contrastmaterial both kidneys concentrate and excrete contrast promptly andsymmetrically. The bilateral pelvicalyceal systems opacify normallywithout evidence of soft tissue filling defects. No suspicious renalparenchymal mass lesions. The bilateral ureters are normal in course andcaliber.. There is minimal thickening along the anterior surface of thebladder near the dome, less conspicuous than on 10/23/2024 and improved from09/09/2024. Thickening of the urinary bladder anteriorly measures up to 8mm (previously 14 mm on 09/09/2024). Remaining Solid Abdominal and Pelvic Organs: Hepatic parenchyma ishomogeneous. No suspicious hepatic mass. Gallbladder is surgically absent.No intrahepatic or extrahepatic biliary ductal dilatation. Adrenal glandsare unremarkable. Pancreatic parenchyma is homogeneous. No pancreaticductal dilatation. The spleen is nonenlarged. Prostate gland and seminalvesicles are unremarkable. GI Tract/Mesentery/Peritoneum: Stomach is unremarkable. Small and largebowel maintain normal caliber and contour. No bowel obstruction. Nosuspicious mesenteric or peritoneal findings. Free Fluid: No ascites. Lymph Nodes and Vasculature: No lymphadenopathy by CT size criteria.Aortoiliac vasculature maintains normal caliber and contour. Theportosplenic confluence is patent. Musculoskeletal and Body Wall: No clearly aggressive osseous lesions. Nosuspicious body wall findings. IMPRESSION: Chest: No evidence of disease progression. Abdomen/Pelvis: Intervally reduced thickness along the anterior aspect of the bladder nearthe dome when compared back to 09/09/2024, measuring up to 8 mm. No soft tissue filling defects within the upper tracts. No abdominopelvic adenopathy. CRITICAL RESULT: No. COMMUNICATION: Per this written report. Drafted by Darby Huerta MD on 11/04/2024 10:51 AM Final report signed by Darby Huerta MD on 11/04/2024 11:10 AM Dejuan Hendricks MD IMG CT PROCEDURES Final Resul t * CT Chest w IV Contrast (11/04/2024 10:17 AM EDT) Anatomical Region Laterality Modality Chest Computed Tomogra phy Impressions 11/04/2024 11:10 AM EDT Chest: No evidence of disease progression. Abdomen/Pelvis: Intervally reduced thickness along the anterior aspect of the bladder near the dome when compared back to 09/09/2024, measuring up to 8 mm. No soft tissue filling defects within the upper tracts. No abdominopelvic adenopathy. CRITICAL RESULT: No. COMMUNICATION: Per this written report. Drafted by Darby Huerta MD on 11/04/2024 10:51 AM Final report signed by Darby Huerta MD on 11/04/2024 11:10 AM Narrative 11/04/2024 11:10 AM EDT CLINICAL INDICATION: Bladder Cancer TECHNIQUE: Multiple axial CT images were obtained from thoracic inlet through pubic symphysis following administration of IV contrast, Omnipaque 300, 100 mL. Reformatted images in the coronal and sagittal planes were generated from the axial data set to facilitate diagnostic accuracy. Total DLP (Dose-Length Product): 1151.97 mGy.cm (accession [id number]), 1151.97 mGy.cm (accession [id number]) Please note: The reported value represents the total of one or more individual components during the CT acquisition on this date and at this time, and as such, the same value may appear in more than one CT report depending on the interpreting/reporting [...] The bilateral pelvicalyceal systems opacify normally without evidence of soft tissue filling defects. No suspicious renal parenchymal mass lesions. The bilateral ureters are normal in course and caliber.. There is [...] osseous lesions. No suspicious body wall findings. Procedure Note Darby Huerta MD - 11/04/2024 CLINICAL INDICATION: Bladder Cancer TECHNIQUE: Multiple axial CT images were obtained from thoracic inlet through pubicsymphysis following administration of IV contrast, Omnipaque 300, 100 mL.Reformatted images in the coronal and sagittal planes were generated fromthe axial data set to facilitate diagnostic accuracy. Total DLP (Dose-Length Product): 1151.97 mGy.cm (accession [id number]),1151.97 mGy.cm (accession [id number]) Please note: The reported valuerepresents the total of one or more individual components during the CTacquisition on this date and at this time, and as such, the same value mayappear in more than one CT report depending on the interpreting/reportingphysicians. COMPARISON: CT chest/abdomen/pelvis from 10/23/2024 and 09/09/2024 FINDINGS: Chest: Lymph Nodes and Mediastinum: A pretracheal lymph node measuring 11 mm isunchanged. No enlarging thoracic lymph nodes. No mediastinal mass lesions.No suspicious thyroid findings. Cardiovascular: The heart is normal in caliber. Thoracic great vessels arepatent. Lungs and Pleura: Central airways are patent. Emphysematous change is mostprominent in the upper lobes. Atelectasis and/or scarring at the lungbases. A 3 mm nodule within the right lower lobe is stable (series 4 [id number]). No enlarging pulmonary nodules. No pleural effusions or suspiciousthickening. Musculoskeletal and Body Wall: No clearly aggressive bone lesions. Nosuspicious body wall findings. Abdomen/Pelvis: Kidneys, Ureters, Bladder: Precontrast imaging demonstrates no evidence ofurinary tract calculi. After the administration of intravenous contrastmaterial both kidneys concentrate and excrete contrast promptly andsymmetrically. The bilateral pelvicalyceal systems opacify normallywithout evidence of soft tissue filling defects. No suspicious renalparenchymal mass lesions. The bilateral ureters are normal in course andcaliber.. There is minimal thickening along the anterior surface of thebladder near the dome, less conspicuous than on 10/23/2024 and improved from09/09/2024. Thickening of the urinary bladder anteriorly measures up to 8mm (previously 14 mm on 09/09/2024). Remaining Solid Abdominal and Pelvic Organs: Hepatic parenchyma ishomogeneous. No suspicious hepatic mass. Gallbladder is surgically absent.No intrahepatic or extrahepatic biliary ductal dilatation. Adrenal glandsare unremarkable. Pancreatic parenchyma is homogeneous. No pancreaticductal dilatation. The spleen is nonenlarged. Prostate gland and seminalvesicles are unremarkable. GI Tract/Mesentery/Peritoneum: Stomach is unremarkable. Small and largebowel maintain normal caliber and contour. No bowel obstruction. Nosuspicious mesenteric or peritoneal findings. Free Fluid: No ascites. Lymph Nodes and Vasculature: No lymphadenopathy by CT size criteria.Aortoiliac vasculature maintains normal caliber and contour. Theportosplenic confluence is patent. Musculoskeletal and Body Wall: No clearly aggressive osseous lesions. Nosuspicious body wall findings. IMPRESSION: Chest: No evidence of disease progression. Abdomen/Pelvis: Intervally reduced thickness along the anterior aspect of the bladder nearthe dome when compared back to 09/09/2024, measuring up to 8 mm. No soft tissue filling defects within the upper tracts. No abdominopelvic adenopathy. CRITICAL RESULT: No. COMMUNICATION: Per this written report. Drafted by Darby Huerta MD on 11/04/2024 10:51 AM Final report signed by Darby Huerta MD on 11/04/2024 11:10 AM Dejuan Hendricks MD IMG CT PROCEDURES Final Resul t * (ABNORMAL) Hemoglobin A1c (10/23/2024 3:28 PM EDT) Hemoglobin A1c 6.1(H) <5.7 % 10/24/2024 4:05 PM EDT [facility] Blood Venous blood specimen / Unknown Venipuncture / Unknown 10/23/2024 3:28 PM EDT 10/23/2024 3:45 PM EDT Narrative [facility] - 10/24/2024 4:05 PM EDT HA1C Interpretive Data: Diagnosis of Diabetes: Diabetic > or = 6.5% Pre-diabetic 5.7 to 6.4% Non-diabetic < or = 5.6% Glycemic Targets for Type I and Type II Diabetics: Non- Adults <7.0% Adults <6.0% Children and Adolescents <7.5% Source: [place] [employer]. Standards of medical care in diabetes,2017. Diabetes Care.2017:40 (suppl 1):S1-S135. HA1C Interpretive Data: Diagnosis of Diabetes: Diabetic > or = 6.5% Pre-diabetic 5.7 to 6.4% Non-diabetic < or = 5.6% Glycemic Targets for Type I and Type II Diabetics: Non- Adults <7.0% Adults <6.0% Children and Adolescents <7.5% Source: [place] [employer]. Standards of medical care in diabetes,2017. Diabetes Care.2017:40 (suppl 1):S1-S135. 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 10/23/2024 Insurance MEDICAID-ID [employer] MEDICARE Advance Directives * Full Code (Latest Code Status on File) Date Activated Date Inactivated Comments 01/11/2025 2:47 PM 01/15/2025 4:44 PM Question Answer Comments I have reviewed the capacity from the link above and, if needed, have updated to appropriate status: Yes * Full Code Date Activated Date Inactivated Comments 10/23/2024 1:12 PM 10/27/2024 3:58 PM Per patient Question Answer Comments I have reviewed the capacity from the link above and, if needed, have updated to appropriate status: Yes Care Teams Animal Care Supervisor Relationship Specialty Start Date End Date Riley Hunter MD [address] [place] [id number] PCP - General 04/22/24
--- OUTSIDE RECORDS SUMMARY | 2025-02-04 13:52 | XMS_ITS ---
Author Organization [facility] Address [address] [place] [address] Care Team Providers Care Fabric Machine Operator Name Role Phone Riley Hunter MD Primary Care Provider [phone] Active Problems Problem Noted Date Diagnosed Date [...] SBO with inpatient hospital stay 03/17/2024-03/20/2024 at [facility] Chronic post-traumatic headache, not intractable 02/07/2024 Concussion [...] carcinoid at age 27 No ongoing issues. 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 Resolved Problems Problem Noted Date Diagnosed Date Resolved Date PONCE (acute kidney injury) 04/22/2024
--- OUTSIDE RECORDS SUMMARY | 2025-02-04 13:53 | XMS_ITS | Encounter Summary ---
Author Organization Healthcare Address [address] [place] [address] Care Team Providers Care Lottery Manager Name Role Phone Riley Hunter MD Primary Care Provider [phone] Encounter Details Date Type Department Care Team (Latest Contact Info) Description 01/11/2025 Travel Social History Tobacco Use Types Packs/Day [...] and Family Not on file 10/27/2024 Attends Mandaen Services Not on file 10/27 Active Member [...] any time in the past 12 m [facility], were you homeless or living in a retirement (including now)? No 10/27/2024 Utilities Answer Date Recorded In the past 12 months has th e [employer], gas, oil, or water company threatened to [...] Risk Indicated 01/11/2025 2:32 PM EDT Jennifer Santos, RN * Question Answer Date of Assessment Author 1. Wish to be (Past 1 Month) No 01/11/2025 2:32 PM EDT Jennifer Santos, RN 2. Non-Specific Active Suici cyndy Thoughts (Past 1 Month) No 01/11/2025 2:32 PM EDT Bulmaro Santos, RN 6. Suicidal Behavior (Lifetime) No 2:32 PM EDT Jennifer Santos, RN documented as of this encounter Plan of Treatment Upcoming Encounters Date Type Department Care Team (Late st Contact Info) Description 02/08/2025 1:30 PM EST Office Visit [facility] [address], [address] [place] [address] Felicita Lindquist, OIL WELL LOGGING ENGINEER [address] [place] [address] 08/04/2025 9:40 AM EDT Appointment [facility] CT [address] [place] [address] 08/04/2025 12:00 PM EDT Office Visit [facility] Multidisciplinary Oncology Clinic [address] [place] [address] Dejuan Hendricks MD [address] [place] [phone] 08/04/2025 12:00 PM EDT Clinical Support [facility] Multidisciplinary Oncology Clinic [address] [place] [address] documented as of this encounter Goals Goal [...] documented as of this encounter Care Teams Lottery Manager Relationship Specialty Start Date End Date Riley Hunter MD [address] [place] [phone] PCP - General 04/22/24 documented as of this encounter
--- OUTSIDE RECORDS SUMMARY | 2025-02-04 13:53 | XMS_ITS | Encounter Summary ---
Author Organization Healthcare Address [address] [place] [address] Care Team Providers Care Waterproof Coating Machine Tender Name Role Phone Riley Hunter MD Primary Care Provider [phone] Encounter Details Date Type Department Care Team (Late st Contact Info) Description 01/20/2025 Orders Only External Location [address] [place] [address] Presley Knight PA [address] [place], [place] [id number] Social History Tobacco Use Types Packs/Day Years [...] and Family Not on file 10/27/2024 Attends [employer]ian[employer] Services Not on file 10/27 Active Member [...] any time in the past 12 m [facility], were you homeless or living in a fci (including now)? No 01/13/2025 [facility] Utilities Answer Date Recorded In [...] on file documented as of this encounter Plan of Treatment Upcoming Encounters Date Type Department Care Team (Late st Contact Info) Description 02/08/2025 1:30 PM EST Office Visit [facility] Medicine Specialties [address] [place] [address] Felicita Lindquist, MANAGER FLIGHT OPERATIONS [address] [facility] [address] [place] [address] 08/04/2025 9:40 AM EDT Appointment [facility] CT [address] [place] [address] 08/04/2025 12:00 PM EDT Office Visit [facility] Multidisciplinary Oncology Clinic [address] [place] [address] [facility]juan Hendricks [facility] [address] [facility] [address] [place] [address] 08/04/2025 12:00 PM EDT Clinical Support [facility] Multidisciplinary Oncology Clinic [address] [place] [address] documented as of this encounter Goals Goal Patient Goal Type Associated Problems Recent Progress Patient-Stated? Author Autogenerat ed Goal Care Plan Autogenerated Problem No Yolanda Houser Autogenerat ed Goal Care Plan Autogenerated Problem No Corrina, Yolanda documented as of this encounter Procedures Procedure Name Priority Date/Time Associated Diagnosis Comments CT OUTSIDE IMAGES 01/20/2025 2:31 PM EST documented in this encounter Results * CT OUTSIDE IMAGES (01/20/2025 2:31 PM EST) Anatomical Region Laterality Modality Computed Tomogra phy 01/20/2025 2:31 PM EST Presley BRYAN IMJose CT PROCEDURES Edited Resul t - Final documented in this encounter Visit Diagnoses Not [...] documented as of this encounter Care Teams Waterproof Coating Machine Tender Relationship Specialty Start Date End Date Riley Hunter MD [address] [place] [phone] PCP - General 04/22/24 documented as of this encounter
--- OUTSIDE RECORDS SUMMARY | 2025-02-04 13:53 | XMS_ITS | Encounter Summary ---
Author Organization Healthcare Address [address] [place] [address] Care Team Providers Care Frame Polisher Name Role Phone Riley Hunter MD Primary Care Provider [phone] Encounter Details Date Type Department Care Team (Latest Contact Info) Description 12/24/2024 Travel Social History Tobacco Use Types Packs/Day [...] and Family Not on file 10/27/2024 Attends Yazidi Services Not on file 10/27 Active Member [...] any time in the past 12 m [facility], were you homeless or living in a penitentiary (including now)? No 10/27/2024 Utilities Answer Date Recorded In the past 12 months has th e [employer], gas, oil, or water company threatened to [...] Description 02/08/2025 1:30 PM EST Office Visit [facility] Medicine Specialties [address] [place] [address] Felicita Lindquist, SEAT COVERER [address] [place] [address] 08/04/2025 9:40 AM EDT Appointment [facility] CT [address] [place] [address] 08/04/2025 12:00 PM EDT Office Visit [facility] Multidisciplinary Oncology Clinic [address] [place] [address] Dejuan Hendricks MD [address] [place] [address] 08/04/2025 12:00 PM EDT Clinical Support [facility] Multidisciplinary Oncology Clinic [address] [place] [address] documented as of this encounter Goals Goal [...] documented as of this encounter Care Teams Frame Polisher Relationship Specialty Start Date End Date Riley Hunter MD [address] [place] [phone] PCP - General 04/22/24 documented as of this encounter
--- OUTSIDE RECORDS SUMMARY | 2025-02-04 13:53 | XMS_ITS | Encounter Summary ---
Author Organization Healthcare Address [address] [place] [address] Care Team Providers Care Buhr Dresser Name Role Phone Riley Hunter MD Primary Care Provider [phone] Encounter Details Date Type Department Care Team (Late st Contact Info) Description 01/11/2025 Orders Only External Location [address] [place] [address] Provider, External Social History Tobacco Use Types Packs/Day Years [...] and Family Not on file 10/27/2024 Attends [employer] Services Not on file 10/27 Active Member [...] any time in the past 12 m [facility], were you homeless or living in a intermediate (including now)? No 01/13/2025 [facility] Utilities Answer Date Recorded In the past 12 months has e electric, gas, oil, or water company [...] Santos RN documented as of this encounter Plan of Treatment Upcoming Encounters Date Type Department Care Team (Late st Contact Info) Description 02/08/2025 1:30 PM EST Office Visit [facility] Medicine Specialties [address] [place] [address] Felicita Lindquist, PHOTOGRAPHER'S ASSISTANT [address] [place] [address] 08/04/2025 9:40 AM EDT Appointment [facility] CT [address] [place] [address] 08/04/2025 12:00 PM EDT Office Visit [facility] Multidisciplinary Oncology Clinic [address] [place] [address] Dejuan Hendricks MD [address] [place] [address] 08/04/2025 12:00 PM EDT Clinical Support [facility] Multidisciplinary Oncology Clinic [address] [place] [address] documented as of this encounter Goals Goal Patient Goal Type Associated Problems Recent Progress Patient-Stated? Author Autogenerat ed Goal Care Plan Autogenerated Problem No Yolanda Houser Autogenerat ed Goal Care Plan Autogenerated Problem No Yolanda Houser documented as of this encounter Procedures Procedure Name Priority Date/Time Associated Diagnosis Comments POC ULTRASOUND 01/11/2025 documented in this encounter Results * POC Imaging (01/11/2025) Anatomical Region Laterality Modality Pelvis Other 01/11/2025 us External Provider IMG POINT OF CARE ULTRASOUND F inal Result documented in this encounter [...] documented as of this encounter Care Teams Buhr Dresser Relationship Specialty Start Date End Date Riley Hunter MD [address] [place] [phone] PCP - General 04/22/24 documented as of this encounter
--- OUTSIDE RECORDS SUMMARY | 2025-02-04 13:53 | XMS_ITS | Encounter Summary ---
Author Organization Healthcare Address [address] [place] [address] Care Team Providers Care Rubber Turner Name Role Phone Riley Hunter MD Primary Care Provider [phone] Radhika Wills SYSTEM ENGINEER Unavailable Unavailab le Encounter Details Date Type Department Care Team (Late st Contact Info) Description 11/13/2024 Results [facility]-Up [place] [facility] [address] [place] [address] Felicita Lindquist, VERIFICATION SPECIALIST [address] [place] [address] Social History Tobacco Use Types [...] and Family Not on file 10/27/2024 Attends Denominational Services Not on file 10/27 Active Member [...] any time in the past 12 m [facility], were you homeless or living in a fdc (including now)? No 01/13/2025 [facility] Utilities Answer Date Recorded In the past 12 months has [employer] electric, gas, oil, or water company threatened [...] all 11/13/2024 8:00 AM EDT Lisa Barrera * Calculated C-SSRS Risk Score (Lifetime/Recent) Answer [...] Description 02/08/2025 1:30 PM EST Office Visit [place] [facility] [address] [place] [address] Felicita Lindquist, VERIFICATION SPECIALIST [address] [place] [address] 08/04/2025 9:40 AM EDT Appointment [facility] [address] [place] [address] 08/04/2025 12:00 PM EDT Office Visit [facility] Mult[facility]isciplinary Oncology Clinic [address] [place] [address] Dejuan Hendricks MD [address] [place] [address] 08/04/2025 12:00 PM EDT Clinical Support [facility] [address] [place] [id number] documented as of this encounter Goals Goal [...] has been complete d for the patient 11/13/2024 8:00 AM EDT A Body Mass Index follow-up plan has been documented for the patient 11/09/2024 12:42 PM EDT documented as of this encounter Care Teams Rubber Turner Relationship Specialty Start Date End Date Riley Hunter MD [address] [place] [address] PCP - General 04/22/24 Radhika Wills LPN [facility] None TCM Nurse 10/28/24 11/27/24 documented as of this encounter
--- OUTSIDE RECORDS SUMMARY | 2025-02-04 13:54 | XMS_ITS | Encounter Summary ---
Author Organization [place] [address] Care Team Providers Care Automatic Beading Lathe Operator Name Role Phone Riley Hunter MD Primary Care Provider [phone] Reason for Visit * Reason Comments Medication Refill Encounter Details Date Type Department Care Team (Late st Contact Info) Description 12/28/2024 Refill [facility] [place] [address] [address] Riley Hunter MD [address] [facility] [place] [address] Medication Refill Social History Tobacco Use [...] any time in the past [facility], were you homeless or living in a intermediate (including now)? No 03/25/2024 Sex and Gender [...] Date Author No 09/08/2020 10:28 AM Skyler Barron CMA documented in this encounter Ordered Prescriptions [...] PM EST Appointment [facility] [place] [address] Fazal Craig MD [address] [place] [address] [address] [place] [address] 02/25/2025 2:20 PM EST Office Visit [facility] [address] [place] [address] Fazal Craig MD [address] [place] [address] [address] [place] [address] documented as of this encounter [...] documented as of this encounter Care Teams Automatic Beading Lathe Operator Relationship Specialty Start Date End Date Riley Hunter MD [address] [place] [id number] PCP - General Family Medicine 09/12/23 documented as of this encounter
--- OUTSIDE RECORDS SUMMARY | 2025-02-04 13:54 | XMS_ITS | Encounter Summary ---
Author Organization [place] [address] Care Team Providers Care Sound Designer Name Role Phone Riley Hunter MD Primary Care Provider [phone] Reason for Visit * Reason Onset Date Comments Other 10/27/2024 Daughter needing # of liters pt is on for his solidworks designer at [facility]. Please advise. Encounter Details Date Type Department Care Team (Late st Contact Info) Description 10/27/2024 Telephone SEP [place] 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 Please advise.) Social History Tobacco Use Types [...] any time in the past 12 m [facility], were you homeless or living in a care home (including now)? No 03/25/2024 Sex and Gender [...] 12:30 PM EST Appointment [facility] [place] [address] Fazal Craig MD [address] [place] [address] 02/25/2025 2:20 PM EST Office Visit [facility] [address] [place] [address] [place] [address] Fazal Craig MD [address] [place] [address] documented as of this encounter Goals [...] documented as of this encounter Care Teams Sound Designer Relationship Specialty Start Date End Date Riley Hunter MD [address] [employer] [address] [place] [phone] PCP - General Family Medicine 09/12/23 documented as of this encounter
--- OUTSIDE RECORDS SUMMARY | 2025-02-04 13:55 | XMS_ITS | Continuity of Care Document ---
Author Organization [facility] Address [address] [place] [address] Phone Care Team Providers Care Public Health Name Role Phone Riley Hunter MD Primary Care Provider [phone] Encounters Date Type Department Care Team Description 12/28/2024 Refill [facility] [address] [place] [address] Riley Hunter MD Medication Refill 10/27/2024 Telephone SEP [address] 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 Please advise.) 09/14/2024 Results Follow-Up [facility] [address] [place] [address] Mimi Alicea, ADOLFO FIGUEROA 09/14/2024 Patient Outreach [facility] [address] [place] [address] Riley Hunter MD Results (oguajared ) 09/10/2024 Patient Outreach [facility] [address] [place] [address] Barbara Darling, ADOLFO CM- Telephonic Outreach; Care Transition; CM-Resource Coordination 09/09/2024 Patient Outreach [address] [place] [address] Barbara Darling, ADOLFO CM- Telephonic Outreach; Care Transition; CM-Resource Coordination 09/08/2024 Patient Outreach [address] [place] [address] Barbara Darling, RN CM- Telephonic Outreach; Care Transition; CM- In office handoff; CM-Resource Coordination 09/08/[address] [place] [address] Riley Hunter MD Orders (Portable O2 and Walker); Follow Up (fu on order for O2) 09/02/2024 1:40 PM EDT Office Visit [address] [place] [address] Riley Hunter MD Chronic respiratory failure with hypoxia (HCC) (Primary Dx); Osteoarthritis of both knees, unspecified osteoarthritis type; Emphysema with chronic bronchitis (HCC); Gait abnormality; History of falling; Tremors of nervous system; Colon cancer screening; Essential tremor 07/29/[address] [place] [address] Jennifer Onofre, DO Medication Refill 07/29/[address] [place] [address] Riley Hunter MD Medication Refill 07/09/2024 Results Follow-Up [address] [place] [address] Riley Hunter MD MRI FOOT RIGHT W WO CONTRAST 07/09/2024 Orders Only [address] [place] [address] Riley Hunter MD Ganglion cyst of right foot (Primary Dx) 07/09/2024 Telephone [facility] [address] [place] [address] Sunshine Garcia MA Other 07/08/2024 Orders Only [facility] [place] [address] [place] [address] Gil Kemp, DPM Right foot pain (Primary Dx); Ganglion cyst of right foot 07/08/2024 8:30 AM EDT Office Visit [facility] [place] [facility] [address] [place] [address] Gil Kemp, DPM Right foot pain (Primary Dx); Ganglion cyst of right foot 07/03/2024 12:01 PM EDT - 07/03/2024 11:59 PM EDT Hospital Encounter [facility] [address] [place] [address] Riley Hunter MD Subcutaneous nodule of foot Discharge Disposition: Home or Self Care 06/01/2024 1:20 PM EDT Office Visit [facility] [address] [place] [address] Riley Hunter MD Medicare annual wellness visit, [...] Bilateral carotid artery stenosis 05/23/2024 Refill [facility] [address] [place] [address] Riley Hunter MD Medication Refill 05/19/[address] [place] [address] Riley Hunter MD Refill (multiple) 03/25/2024 9:30 AM EST Clinical Support [address] [place] [address] Barbara Darling, RN Encounter for support and coordination of transition of care (Primary Dx) 03/25/2024 9:00 AM EST Office Visit [facility] [address] [place] [address] Diane Ochoa APRN SBO (small bowel obstruction) (HCC) (Primary Dx); Gross hematuria; Lung nodule; Bladder mass 03/17/[address] [place] [address] Riley Hunter MD 911/Red Flag (Informed to go to ER ) 03/04/2024 Orders Only [address] [place] [address] Riley Hunter MD Emphysema with chronic bronchitis (HCC) (Primary Dx) 02/27/2024 Patient Outreach [facility] [address] [place] [address] Asha Sahni, [facility] Medication Management (Clinical Director Of Ancillary Services: insurance consultant [phone]/) 02/22/[address] [place] [address] Riley Hunter MD Medication Refill 02/07/2024 2:46 PM EST - 02/07/2024 11:59 PM [facility] Hospital Encounter [facility] [place] [address] Jose Pruitt MD Concussion with unknown loss of consciousness status, initial encounter Discharge Disposition: Home or Self Care 02/07/2024 11:20 AM EST Office Visit [facility] [address] [place] [address] Fazal Craig MD Bilateral carotid artery stenosis (Primary Dx); History of DVT (deep vein thrombosis); Lung nodule; Concussion with loss of consciousness, sequela; Chronic post-traumatic headache, not intractable 02/06/2024 Refill [facility] [address] [place] [address] Riley Hunter MD Medication Refill 02/03/2024 1:45 PM EST Office Visit [address] [place] [address] Jose Pruitt MD Concussion with unknown loss of consciousness status, initial encounter (Primary Dx); Lesion of right ear 01/27/[address] [place] [address] Riley Hunter MD Schedule Appointment (Returning call) 01/22/[address] [place] [address] PinedaleCherry neal, CAN SOLDERER Results 01/21/2024 Orders Only [address] [place] [address] PinedaleMedardoCherry, CAN SOLDERER Bilateral carotid artery disease, unspecified type (Primary Dx) 01/17/2024 2:08 PM EDT - 01/17/2024 11:59 PM EDT Hospital Encounter [facility] [address] [facility] [place] [address] Phuong, Cherry, CAN SOLDERER Atherosclerosis of both carotid arteries Discharge Disposition: Home or Self Care 01/08/2024 3:00 PM EDT Office Visit [address] [place] [address] Riley Hunter MD Hematoma of scalp, initial encounter (Primary Dx); Emphysema with chronic bronchitis (HCC); Atherosclerosis of both carotid arteries 01/03/2024 Orders Only [address] [place] [address] Pinedale, Cherry, CAN SOLDERER Atherosclerosis of both carotid arteries (Primary Dx) 01/03/2024 2:02 PM EDT - 01/03/2024 11:59 PM EDT Hospital Encounter [facility] [address] [place] [address] Phuong, Cherry, CAN SOLDERER Lymphadenopathy Discharge Disposition: Home or Self Care 01/03/2024 2:02 PM EDT - 01/03/2024 11:59 PM EDT Hospital Encounter [facility] [address], [place] [address] Riley Hunter MD Lung nodule Discharge Disposition: Home or Self Care 12/05/2023 Refill SEP [address] [place] [address] Riley Hunter MD Medication Refill 11/23/2023 Refill SEP [address] [place] [address] Riley Hunter MD Medication Refill 10/22/2023 Telephone [facility] [address] [place] [address] Elisa Ford MD Cirrhosis 10/22/2023 Telephone SEP [address] [place] [address] Riley Hunter MD Results 10/17/2023 Orders Only [address] [place] [address] Riley Hunter MD Abnormal liver CT (Primary Dx) 10/17/2023 1:40 PM EDT Office Visit [address] [place] [address] Riley Hunter MD Partial nodular transformation of liver (Primary Dx); Other specified inflammatory liver diseases; COPD with acute exacerbation (HCC); Hypoxemia; Tobacco abuse 10/10/2023 9:14 AM EDT - 10/10/2023 11:59 PM EDT Hospital Encounter [facility] [address] [place] [address] Riley Hunter MD Abnormal liver CT Discharge Disposition: Home or Self Care 10/09/2023 4:15 PM EDT Office Visit [address] [place] [address] Cherry Baca APRN COPD with acute exacerbation (HCC) (Primary Dx); Lung nodule; Lymphadenopathy; Tobacco abuse 10/09/[address] [place] [address] Riley Hunter MD Appointment Needed (Neck is painful, shoulders are swelling, x 2 day.) 10/08/[address] [place] [address] Riley Hunter MD Results (CT/Xray results given) 10/08/[address] [place] [address] Riley Hunter MD Appointment Needed (Acute appt needed- asking to be worked in today - please call) 09/30/2023 Orders Only [address] [place] [address] Riley Hunter MD Abnormal liver CT (Primary Dx) 09/27/2023 10:02 AM EDT - 09/27/2023 11:59 PM EDT Hospital Encounter [facility] [address] [place] [address] Riley Hunter MD Gross hematuria Discharge Disposition: Home or Self Care 09/24/[address] [place] [address] Riley Hunter MD Results 09/20/[address] [place] [address] Riley Hunter MD Medication Management (Wegovy ) 09/16/2023 12:58 PM EDT - 09/16/2023 11:59 PM EDT Hospital Encounter [facility] [address] [place] [address] Chronic pain of right knee Discharge Disposition: Home or Self Care 09/12/2023 1:40 PM EDT Office Visit [address] [place] [address] Riley Hunter MD Gross hematuria (Primary Dx); Colon cancer screening; History of colon polyps; Tobacco abuse; Chronic pain of right knee; Effusion of right knee; Obesity, unspecified classification, unspecified obesity type, unspecified whether serious comorbidity present 07/24/[address] [place] [address] Barbara Higuera MD Medication Refill 07/13/[address] [place] [address] Riley Hutner MD Medication Refill 06/19/[address] [place] [address] Riley Hunter MD Medication Refill 05/27/[address] [place] [address] Riley Hunter MD Medication Refill 05/16/[address] [place] [address] Barbara Higuera MD Medication Refill 05/12/[address] [place] [address] Barbara Higuera MD Medication Refill 05/03/2023 Orders Only [address] [place] [address] Mabel James MA Dyslipidemia (Primary Dx) 04/29/2023 Orders Only [address] [place] [address] Riley Hunter MD Anemia, unspecified type (Primary Dx) 04/29/2023 10:40 AM EST Office Visit [address] [place] [address] Riley Hunter MD Medicare annual wellness visit, [...] Anemia, unspecified type 04/26/2023 Patient Outreach [facility] [address] [facility] [address] [place] [address] Barbara Higuera MD Central Patient Navigator Outreach (AWV questionnaire /) 04/18/2023 Refill SEP [address] [place] [address] Barbara Higuera MD Medication Refill 04/18/2023 Orders Only [address] [place] [address] Mabel James MA Emphysema with chronic bronchitis (HCC); Tremors of nervous system 04/05/[address] [place] [address] Barbara Higuera MD Medication Refill (2 meds) 02/28/2023 Refill SEP [address] [place] [address] Barbara Higuera MD Medication Refill 02/26/2023 Patient Outreach [place] [address] [place] [address] Sandra Maddox CPhT Medication Management (Clinical Director Of Ancillary Services: insurance consultant [phone] ) 01/23/2023 Telephone [facility] Pulmon[facility] [address] [place] [address] Hugo Toledo MD Other (Lung nodule. Emphysema with chronic bronchitis. SOB. Please see note placed in referral by Elizabeth Figueredo RN Management of lung nodule, emphysema and SOB. Please call patient to schedule Pulm appointment./) 01/23/2023 Telephone [facility] [place] [address] Riley Desai MD Patient Question (Patient asking if he should keep his appointment for today with Dr. Desai?) 01/23/2023 12:29 PM EST - 01/23/2023 11:59 PM EST Hospital Encounter [facility] [address] [place] [address] Riley Desai MD Emphysema with chronic bronchitis (HCC) (Primary Dx); Lung nodule; SOB (shortness of breath) Discharge Disposition: Home or Self Care 01/23/2023 9:42 AM EST - 01/23/2023 12:28 PM EST [facility] [address] [place] [address] Lung nodule Discharge Disposition: Home or Self Care 01/22/2023 Patient Outreach [facility] [place] [address] [place] [address] Darby Olmstead, LakeishaD Comprehensive Medication Review (COA) 01/21/2023 Patient Outreach [facility] [address] [place], [place] [address] Sandra Maddox CPhT Medication Management (Clinical Director Of Ancillary Services: insurance consultant [phone] ) 12/13/2022 9:20 AM EDT - 12/13/2022 11:59 PM EDT Hospital Encounter [facility] [address] [place] [address] Riley Desai MD Lung nodule (Primary Dx); Tobacco use Discharge Disposition: Home or Self Care 12/12/2022 Telephone [facility] [address] [place] [address] Joel Yee, VEHICLE TECHNICIAN Confirmation 12/07/2022 Telephone [facility] [place] [address] Jv Sagastume MD Information Only (Confirmed appointment) 12/06/2022 Telephone [facility] [place] [address] Jv Sagastume MD Information Only 11/27/2022 Telephone [facility] [address] [place] [address] Hilary Irene, RN Schedule Appointment 11/24/[address] [place] [address] Barbara Higuera MD Medication Refill 11/24/2022 Refill [facility] [address] [place] [address] Riley Hunter MD Medication Refill 11/23/2022 Orders Only [address] [place] [address] Barbara Higuera MD Lung nodule (Primary Dx) 11/23/2022 Orders Only [facility] ATTN: Appointments in this department are performed at various locations in the community on our Cardiovascular mobile health unit. You can look online to verify your site or call [phone] [address] Sonam Graham, ADOLFO 11/22/2022 4:17 PM EDT - 11/22/2022 11:59 PM EDT Hospital Encounter [address] [place] [address] Barbara Higuera MD Encounter for screening for lung cancer; History of tobacco use Discharge Disposition: Home or Self Care 11/20/2022 Patient Outreach [facility] [address] [place] [address] Barbara Higuera MD Central Order Completion Outreach (ldct/) 10/24/[address] [place] [address] Barbara Higuera MD Medication Refill 09/12/[address] [place] [address] Barbara Higuera MD Medication Refill 08/06/2022 Orders Only [address] [place] [address] Sadie Arenas RMA 08/06/[address] [place] [address] Barbara Higuera MD Medication Refill (Cholesterol Meds/ ) 07/18/2022 Refill [facility] [address] [place] [address] Barbara Higuera MD Medication Refill 07/01/2022 Refill SEP [address] [place] [address] Barbara Higuera MD Medication Refill 05/21/2022 Patient Outreach [facility] [address] [place] [address] Barbara Higuera MD Central Care Gap Outreach (Colon Screen) 04/13/2022 Refill SEP [address] [place] [address] Barbara Higuera MD Medication Refill 04/03/2022 Telephone [facility] [place] [id number] Derrick Savage MD Results 02/22/2022 Travel 02/22/2022 12:20 PM EST - 02/22/2022 11:59 PM EST Hospital Encounter [facility] [address] [place] [address] Derrick Savage MD Chest pain, unspecified type; SOB (shortness of breath); Smoker Discharge Disposition: Home or Self Care 02/22/2022 11:30 AM EST - 02/22/2022 11:33 AM EST Hospital Encounter [facility] [address] [place] [address] Derrick Savage MD Chest pain, unspecified type; SOB (shortness of breath); Smoker Discharge Disposition: Home or Self Care 02/22/2022 11:34 AM EST - 02/22/2022 12:19 PM EST Hospital Encounter [facility] [address] [place] [address] Derrick Savage MD Chest pain, unspecified type; SOB (shortness of breath); Smoker Discharge Disposition: Home or Self Care 01/08/[address] [place] [address] Barbara Higuera MD Medication Refill 01/08/[address] [place] [address] Riley Hunter MD Medication Refill 01/03/2022 Travel 01/03/2022 1:30 PM EDT Office Visit [facility] [employer] [address] [address] Derrick Savage MD Chest pain, unspecified type (Primary Dx); SOB (shortness of breath); Smoker 12/18/[address] [place] [address] Barbara Higuera MD Results (Labs ) 12/11/2021 3:00 PM EDT Office Visit [address] [place] [address] Riley Hunter MD Medicare annual wellness visit, [...] Hospital Encounter [facility] [address] [place] [address] Acute cough Discharge Disposition: Home or Self Care 12/06/2021 11:30 AM EDT Office Visit [address] [place] [address] Jennifer Onofre DO Acute cough (Primary Dx) 12/06/[address] [place] [address] Barbara Higuera MD Appointment Needed (cough, fever, wheezing, & sweating ) 11/28/2021 Patient Outreach [place] [address] [place] [address] Barbara Higuera MD Central Order Completion Outreach (LDCT) 10/17/[address] [place] [address] Barbara Higuera MD Medication Refill 09/29/2021 Patient Outreach [place] [address] [place] [address] Barbara Higuera MD Central Order Completion Outreach (LDCT) 09/29/[address] [place] [address] Barbara Higuera MD Medication Refill 09/25/[address] [place] [address] Barbara Higuera MD Medication Refill 06/16/2021 2:00 PM EDT Office Visit [address] [place] [address] Jose Pruitt MD COPD exacerbation (HCC) (Primary Dx); Fever, unspecified fever cause 06/16/[address] [place] [address] Barbara Higuera MD Appointment Needed (fever, head congestion, 2 days) 05/15/[address] [place] [address] Barbara Higuera MD Medication Refill 05/02/[address] [place] [address] Barbara Higuera MD Paperwork/forms (letter for social security card ) 03/10/[address] [place] [address] Barbara Higuera MD Medication Refill 03/09/[address] [place] [address] Barbara Higuera MD Medication Refill 02/08/[address] [place] [address] Barbara Higuera MD Medication Refill 12/30/2020 Travel 12/30/2020 8:16 AM EDT - 12/30/2020 11:59 PM EDT Hospital Encounter [facility] [address] [place] [address] Riley Hunter MD Screening for AAA (abdominal aortic aneurysm) Discharge Disposition: Home or Self Care 12/22/2020 Orders Only [address] [place] [address] Jose Pruitt MD Screening for malignant neoplasm of respiratory organ (Primary Dx); Personal history of tobacco use, presenting hazards to health 12/22/2020 Travel 12/22/2020 1:48 PM EDT - 12/22/2020 11:59 PM EDT Hospital Encounter [facility] [address] [place] [address] Jose Pruitt MD Personal history of tobacco use Discharge Disposition: Home or Self Care 12/20/[address] [place] [address] Barbara Higuera MD Medication Refill 12/08/[address] [place] [address] Barbara Higuera MD Medication Refill 11/28/[address] [place] [address] Barbara Higuera MD Medication Refill 11/17/2020 Travel 11/17/2020 4:20 PM EDT Office Visit [address] [place] [address] Riley Hunter MD Acute bronchitis, unspecified organism (Primary Dx); Acute pain of left shoulder; Olecranon bursitis of right elbow 11/16/[address] [place] [address] Barbara Higuera MD Appointment Needed ( knot on elbow/cant raise arm x 1 mo runny nose/sneezing x 2 days) 09/26/[address] [place] [address] Barbara Higuera MD Medication Refill 09/21/[address] [place] [address] Barbara Higuera MD Medication Refill 09/08/2020 Travel 09/08/2020 10:20 AM EDT Office Visit [address] [place] [address] Riley Hunter MD Medicare annual wellness visit, [...] level; Essential tremor; Dyslipidemia 09/04/2020 Refill [facility] [address] [place] [address] Amanda Veronica APRN Medication Refill 08/04/2020 Refill [facility] [address] [place] [address] Barbara Higuera MD Medication Refill (flexril 10 mg ) 08/02/[address] [place] [address] Barbara Higuera MD Medication Refill 08/02/[address] [place] [address] Amanda Veronica, ALFREDO Medication Refill 07/21/[address] [place] [address] Barbara Higuera MD Paperwork/forms (mail order RX paperwork) 06/06/[address] [place] [address] Barbara Higuera MD Paperwork/forms ([employer] mail order ) 05/07/[address] [place] [address] Barbara Higuera MD Medication Refill 05/07/[address] [place] [address] Amanda Veronica APRN Medication Refill 04/23/[address] [place] [address] Barbara Higuera MD Medication Refill 04/21/2020 Travel 04/18/2020 3:30 PM EST Office Visit [address] [place] [address] Amanda Veronica APRN Skin lesion of face (Primary Dx); Emphysema with chronic bronchitis (HCC); Mild episode of recurrent major depressive disorder; Appendix carcinoma (HCC); Chronic deep vein thrombosis (DVT) of other vein of right lower extremity (HCC); History of colon polyps; Emphysema with chronic bronchitis (HCC) 04/18/2020 Travel 03/22/[address] [place] [address] Barbara Higuera MD Medication Refill (citalopram (CELEXA) 20 mg Oral Tablet ) 03/01/[address] [place] [address] Amanda Veronica APRN Medication Refill 02/02/[address] [place] [address] Barbara Higuera MD Medication Refill 01/15/2020 10:00 AM EDT Clinical Support [address] [place] [address] Trudy Becerril Needs flu shot (Primary Dx); Normocytic anemia 12/30/[address] [place] [address] Barbara Higuera MD Results 12/24/2019 Orders Only [address] [place] [address] Jose Pruitt MD Personal history of tobacco use 12/23/2019 Travel 12/23/2019 3:48 PM EDT - 12/23/2019 11:59 PM EDT Hospital Encounter [facility] [address] [place] [address] Jose Pruitt MD Encounter for screening for malignant neoplasm of respiratory organs; Smoking greater than 30 pack years Discharge Disposition: Home or Self Care 12/18/2019 Travel 12/16/2019 Orders Only [address] [place] [address] Cherry Baca APRN Normocytic anemia (Primary Dx) 12/15/2019 Travel 12/15/2019 1:40 PM EDT Office Visit [address] [place] [address] Cherry Baca APRN Encounter for Medicare annual [...] Living will, counseling/discussion 12/14/2019 Travel 12/14/[address] [place] [address] Barbara Higuera MD Medication Refill 10/29/2019 4:40 PM EDT Office Visit [address] [place] [address] Riley Hunter MD Venous stasis (Primary Dx) 10/29/2019 Travel 10/14/[address] [place] [address] Barbara Higuera MD Medication Refill 09/18/[address] [place] [address] Amanda Veronica APRN Medication Refill 09/09/[address] [place] [address] Barbara Higuera MD Medication Management (Chantix) 09/01/2019 2:00 PM EDT Office Visit [address] [place] [address] Tino Pruitt MD Impacted cerumen of left ear (Primary Dx); Mild episode of recurrent major depressive disorder; Appendix carcinoma (HCC); ED (erectile dysfunction) of non-organic origin 09/01/2019 Travel 08/06/2019 Travel 08/06/2019 11:54 AM EDT - 08/06/2019 11:59 PM EDT Hospital Encounter [address] [facility] [place] [address] Arelis Mike A., PT CHT Discharge Disposition: Home or Self Care 07/23/2019 Refill SEP [facility] [address] [place], [place] [address] Barbara Higuera MD Medication Refill (2 refills ) 07/20/2019 Travel 07/20/2019 2:50 PM EDT - 07/20/2019 11:59 PM EDT Hospital Encounter [address] 34 [facility] [place] [address] Arelis Mike A., PT CHT Discharge Disposition: Home or Self Care 07/17/2019 Refill [facility] [address] [place], [place] [address] Riley Hunter MD Medication Refill 07/10/2019 Travel 06/07/2019 Refill [place] [place] [address] [place] [address] Amanda Veronica APRN Medication Refill 06/03/[address] [place] [address] Arelis Mike A., PT CHT Cancellation (rs to next week ) 06/03/2019 Travel 05/26/2019 Travel 05/26/2019 11:20 AM EDT - 05/26/2019 11:59 PM EDT Hospital Encounter [address] [place] [address] Kristin Lerner, PT CHT Discharge Disposition: Home or Self Care 05/20/2019 12:00 PM EST - 05/20/2019 11:59 PM EST Hospital Encounter [facility] [place] 741 [facility] 34 [facility], [place] [address] Arelis Mike., PT CHT Discharge Disposition: Home or Self Care 05/07/2019 Travel 05/06/2019 Travel 05/06/2019 10:00 AM EST - 05/06/2019 11:59 PM EST Hospital Encounter [facility] [place] 741 [facility] 34 [facility], [facility]17 Arelis Mike A., PT CHT Discharge Disposition: Home or Self Care 05/05/2019 Travel 04/29/2019 Telephone [facility] Hand Therapy [place] [id number] [facility] 34 [facility], [facility]17 Gurvinder Bowen MD Other (called gilberto at Dr Bowen office to let her know he cancelled 04/29 and unable to get back in till 05/06 due to certain times he can come) 04/21/2019 1:45 PM EST Anesthesia Event [facility] [place] [facility]17 Emely Taveras MD 04/21/2019 1:30 PM EST - 04/21/2019 3:10 PM EST Surgery [facility] [address] [place] [facility]17 Gurvinder Bowen MD WRIST PROXIMAL ROW CARPECTOMY 04/21/2019 Travel 04/21/2019 10:28 AM EST - 04/21/2019 4:36 PM EST Hospital Encounter [facility] SAME DAY SURGERY [facility] Dr[address] [place] [facility]17 Gurvinder Bowen MD Discharge Disposition: Discharge/Readmit 04/22/2019 8:15 AM EST Anesthesia Event [facility] [address] [place] [address] Colton Wooten MD Oliver, Richard G, MD 04/20/2019 Travel 04/16/2019 Refill [facility] [place] [address] [place] [address] Riley Hunter MD Medication Refill 04/07/2019 2:20 PM EST Office Visit [facility] [place] [address] [place] [address] Jose Pruitt MD Tear of right scapholunate ligament, initial encounter (Primary Dx); Pre-op examination; Emphysema with chronic bronchitis (HCC); Gastroesophageal reflux disease without esophagitis; Cigarette nicotine dependence with withdrawal; Chronic deep vein thrombosis (DVT) of other vein of right lower extremity (HCC) 03/25/2019 Refill SEP [address] [place] [address] Barbara Higuera MD Medication Refill (propranolol (INDERAL) 10 mg Oral Tablet) 03/09/[address] [place] [address] Amanda Veronica, ALFREDO Medication Refill 02/25/2019 Refill SEP [address] [place] [address] Amanda Veronica, ALFREDO Medication Refill 02/23/2019 10:40 AM EST Office Visit [address] [place] [address] Jose Pruitt MD Encounter for Medicare annual [...] Left ear impacted cerumen 12/15/2018 Refill SEP [address] [place] [address] Barbara Higuera MD Medication Refill 12/15/2018 Refill SEP [address] [place] [address] Amanda Veronica APRN Medication Refill 11/20/[address] [place] [address] Barbara Higuera MD Visit Follow Up 10/30/[address] [place] [address] Riley Hunter MD Medication Refill 09/14/[address] [place] [address] Amanda Veronica, CAN SOLDERER Medication Refill 09/08/[address] [place] [address] Amanda Veronica, CAN SOLDERER Medication Refill 08/07/2018 Orders Only [facility] Quality Transformation [address] [place], [place] [id number] Barbara Higuera MD Screening for colon cancer; Screening for cancer of the rectum 07/07/[address] [place] [address] Barbara Higuera MD Medication Refill 06/19/2018 2:34 PM EDT - 06/19/2018 11:59 PM EDT Hospital Encounter [facility] [address], [place] [address] Riley Hunter MD Right foot pain Discharge Disposition: Home or Self Care 06/19/2018 1:40 PM EDT Office Visit [address] [place] [address] Riley Hunter MD Right foot pain (Primary Dx) 06/11/[address] [place], [place] [address] Barbara Higuera MD Medication Refill 04/28/2018 Refill SEP [address] [place] [address] Riley Hunter MD Medication Refill 01/26/2018 Refill SEP [address] [place] [address] Amanda Veronica, CAN SOLDERER Medication Refill 01/11/2018 Refill SEP [address] [place] [address] Barbara Higuera MD Medication Refill 12/16/[address] [place] [address] Barbara Higuera MD Medication Refill 12/12/2017 Orders Only [address] [place], [place] [address] Diane Jackson, [facility] Chronic deep vein thrombosis (DVT) of other vein of right lower extremity (HCC) 11/29/[address] [place], [place] [address] Amanda Veronica, CAN SOLDERER Medication Refill 10/31/[address] [place] [address] Amanda Veronica, CAN SOLDERER Medication Refill 10/03/[address] [place] [address] Riley Hunter MD Medication Refill 09/12/[address] [place] [address] Barbara Higuera MD Medication Refill 08/30/[address] [place] [address] Amanda Veronica, CAN SOLDERER Medication Refill 08/29/[address] [place] [address] Amanda Veronica, CAN SOLDERER Medication Refill 08/21/2017 4:00 PM EDT - 08/21/2017 11:59 PM EDT Hospital Encounter [facility] [address] [place] [address] Grace Cormier MD Neck pain Discharge Disposition: Home or Self Care 08/21/2017 3:52 PM EDT - 08/21/2017 3:59 PM EDT Hospital Encounter [facility] [address] [place] [address] Grace Cormier MD Neck pain Discharge Disposition: Home or Self Care 07/26/2017 Telephone [facility] [place] [address] [place] [address] Barbara Higuera MD Visit Follow Up 07/19/2017 10:56 AM EDT - 07/19/2017 11:59 PM EDT Hospital Encounter [facility] [address] [place] [address] Neck pain Discharge Disposition: Home or Self Care 07/18/2017 2:40 PM EDT Office Visit SEP [place] [address] [place] [address] Riley Hunter MD Neck pain (Primary Dx) 07/10/2017 Telephone [facility] [place] [address] [place] [address] Barbara Higuera MD Visit Follow Up 07/03/2017 3:36 PM EDT - 07/03/2017 11:59 PM EDT Hospital Encounter [facility] [address] [place] [address] Barbara Higuera MD Right hand pain Discharge Disposition: Home or Self Care 06/27/2017 Telephone [place] [address] [place] [address] Barbara Higuera MD Orders 06/21/2017 Telephone [facility] [place] [address] [place] [address] Barbara Higuera MD Visit Follow Up 06/21/2017 11:55 AM EDT - 06/21/2017 11:59 PM EDT Hospital Encounter [facility] [address] [place] [address] Barbara Higuera MD History of joint pain Discharge Disposition: Home or Self Care 06/19/2017 8:20 AM EDT Clinical Support [address] [place] [address] Trudy Becerril Hepatitis C antibody test positive; Visit for [facility] health check; B12 deficiency; Screening for diabetes mellitus (DM); Screening for cholesterol level; Screening for prostate cancer; Screening for thyroid disorder; Vitamin D deficiency; History of joint pain 06/17/2017 11:10 AM EDT Office Visit [address] [place] [address] Barbara Higuera MD Visit for [facility] health check (Primary Dx); B12 deficiency; [...] cancer; Screening for thyroid disorder 06/04/[address] [place] [address] Amanda Veronica, ALFREDO Medication Refill 02/26/[address] [place] [address] Amanda Veronica, CAN SOLDERER Medication Refill 02/17/[address] [place] [address] Amanda Veronica, CAN SOLDERER Medication Refill 02/12/[address] [place] [address] Amanda Veronica, CAN SOLDERER Medication Refill 11/11/[address] [place] [address] Amanda Veronica, CAN SOLDERER Medication Refill 11/07/[address] [place] [address] Amanda Veronica, CAN SOLDERER Medication Refill 07/11/[address] [place] [address] Amanda Veronica, CAN SOLDERER Medication Refill 07/03/2016 10:00 AM EDT Office Visit [address] [place] [address] Amanda Veronica, CAN SOLDERER Chronic deep vein thrombosis (DVT) of other vein of right lower extremity (HCC) (Primary Dx); Gastroesophageal reflux disease without esophagitis; Depression, unspecified depression type; Tremors of nervous system; S/P colon resection; Arthralgia, unspecified joint; Chronic bronchitis, unspecified chronic bronchitis type (HCC); Emphysema with chronic bronchitis (HCC) 06/27/[address] [place] [address] Amanda Veronica, CAN SOLDERER Medication Refill 06/13/2016 10:00 AM EDT Office Visit [address] [place] [address] Amanda Veronica, CAN SOLDERER Tremors of nervous system (Primary Dx) 05/15/[address] [place] [address] Amanda Veronica, CAN SOLDERER Medication Refill 03/19/2016 1:40 PM EST Office Visit [address] [place] [address] Amanda Veronica, CAN SOLDERER Chronic deep vein thrombosis (DVT) of other vein of right lower extremity (HCC) (Primary Dx); Chronic bronchitis, unspecified chronic bronchitis type (HCC); Depression, unspecified depression type; Vitamin D deficiency 02/15/2016 10:00 AM EST Office Visit [address] [place] [address] Amanda Veronica APRN Depression, unspecified depression type (Primary Dx); Mucopurulent chronic bronchitis (HCC); Gastroesophageal reflux disease without esophagitis; Nausea and vomiting, intractability of vomiting not specified, unspecified vomiting type; Diarrhea in adult patient 01/11/[address] [place] [address] Amanda Veronica APRN Visit Follow Up 01/10/2016 4:43 PM EDT - 01/10/2016 11:59 PM EDT Hospital Encounter [facility] JOSELIN PROCESSING [facility] [place] [address] Vitamin D deficiency Discharge Disposition: Home or Self Care 01/10/2016 10:00 AM EDT Office Visit [place] [address] [place] [address] Amanda Veronica APRN Acute bronchitis, unspecified organism (Primary Dx); COPD with acute exacerbation (HCC); Vitamin D deficiency; Screening for colon cancer; Need for influenza vaccination 10/14/2015 Telephone [place] [address] [place] [address] Amanda Veronica APRN Visit Follow Up 10/05/[address] [place] [address] Amanda Veronica APRN Visit Follow Up 10/04/2015 4:33 PM EDT - 10/04/2015 11:59 PM EDT Hospital Encounter [facility] LAB JOSELIN PROCESSING [facility] [place] [address] Vitamin D deficiency Discharge Disposition: Home or Self Care 10/04/2015 Telephone [place] [address] [place] [address] Amanda Veronica APRN Other 10/04/2015 9:40 AM EDT Office Visit [place] [address] [place] [address] Amanda Veronica APRN Emphysema with chronic bronchitis (HCC) (Primary Dx); Chronic bronchitis, unspecified chronic bronchitis type (HCC); Vitamin D deficiency; Hepatitis C antibody test positive; Healthcare maintenance 08/31/2015 Orders Only [facility] [place] [address] [place] [address] Amanda Veronica APRN Vitamin D deficiency (Primary Dx) 08/29/2015 4:43 PM EDT - 08/29/2015 11:59 PM EDT Hospital Encounter [facility] LAB OJSELIN PROCESSING [facility] [place] [address] Vitamin D deficiency Discharge Disposition: Home or Self Care 08/29/2015 3:20 PM EDT Office Visit [facility] [address] [place] [address] Amanda Veronica APRN Emphysema with chronic bronchitis (HCC) (Primary Dx); Pulmonary emphysema, unspecified emphysema type (HCC); COPD with acute exacerbation (HCC) 07/21/2015 Refill [facility] [place] [address] [place] [address] Amanda Veronica APRN Medication Refill 06/06/2015 Orders Only [facility] [place] [address] [place] [address] Barbara Higuera MD Exposure to the flu (Primary Dx) 05/25/[address] [address] Ryan Villarreal, Results 05/10/2015 1:35 PM EST - 05/10/2015 11:59 PM EST Hospital Encounter [facility] [address] [place] [address] Hepatitis C antibody test positive Discharge Disposition: Home or Self Care 05/09/[address] [address] Ryan Villarreal DO Lab Orders 05/06/[address] [place] [address] Ryan Villarreal, DO Labs Only 05/04/2015 Orders Only [address] [place] [address] Amanda Veronica APRN Vitamin D deficiency (Primary Dx) 04/21/2015 Orders Only [address] [place] [address] Amanda Veronica APRN Hepatitis C antibody test positive (Primary Dx); Vitamin D deficiency 04/18/2015 8:40 PM EST - 04/18/2015 11:59 PM EST Hospital Encounter [facility] JOSEL[facility] PROCESSING [place] [address] Annual physical exam; Vitamin D deficiency Discharge Disposition: Home or Self Care 04/18/2015 2:40 PM EST Office Visit [address] [place] [address] Amanda Veronica APRN DVT (deep venous thrombosis), unspecified laterality (HCC) (Primary Dx); Pulmonary emphysema, unspecified emphysema type (HCC); Acute bacterial sinusitis; Emphysema with chronic bronchitis (HCC); Nocturia more than twice per night; Annual physical exam; Vitamin D deficiency; Need for influenza vaccination; Failed total left knee replacement, subsequent encounter; Pain in joint, pain in unspecified joint 09/24/2014 Patient Outreach [address] [address] Berenice Benedict, RN Care Management - Chart Review 04/30/2013 11:07 AM EST - 04/30/2013 11:59 PM EST Hospital Encounter [facility] Ultrasound [address] [facility] [place] [address] Ryan Cadena MD Abnormal LFTs Discharge Disposition: Home or Self Care 04/23/2013 8:30 AM EST Office Visit [address] [address] Ryan Cadena MD Emphysema (Primary Dx); DVT (deep venous thrombosis) (HCC); Failed total left knee replacement; Carpal tunnel syndrome of right wrist; Fracture of left foot; S/P colon resection; Colonic mass; B12 deficiency; Vitamin D deficiency; Abnormal LFTs; Right hand pain 04/08/2013 Refill [facility] [place] [address] [place] [address] Yolanda Galvez RMA Medication Refill 04/02/2013 8:54 AM EST - 04/02/2013 11:59 PM EST Hospital Encounter [facility] [address] [place] [address] Wrist pain; Pelvic pain complicating Discharge Disposition: Home or Self Care 04/02/2013 8:50 AM EST - 04/02/2013 8:53 AM EST Hospital Encounter [facility] [address] [place] [address] Routine health maintenance (Primary Dx); Vitamin D deficiency; Emphysema; DVT (deep venous thrombosis) (HCC); Failed total left knee replacement; Carpal tunnel syndrome of right wrist; Fracture of left foot; S/P colon resection; Colonic mass Discharge Disposition: Home or Self Care 04/01/2013 10:00 AM EST Office Visit [facility] [place] [address] Ryan Cadena MD Routine health maintenance (Primary Dx); Colon cancer screening; Vitamin D deficiency; Tobacco abuse; Wrist pain; Sinusitis; COPD (chronic obstructive pulmonary disease) (HCC) 03/25/2013 Orders Only [facility] [place] [address] Yolanda Galvez RMA Colon cancer screening (Primary Dx) 03/16/2013 Telephone [facility] Zeferino [place] [address] [place] [address] Ryan Cadena MD Other 03/05/2013 10:00 AM EST Office Visit [facility] [place] [address] Ryan Cadena MD Emphysema (Primary Dx); Carpal tunnel syndrome of right wrist; DVT (deep venous thrombosis) (HCC); Failed total left knee replacement; Fracture of left foot; Pelvic pain complicating ; Wrist pain; S/P colon resection; Colonic mass 11/21/2005 12:50 PM EDT - 11/21/2005 11:59 PM EDT Hospital Encounter [facility] GC SPEC SVC PADMINIT Uri Pope MD 10/20/2005 10:57 AM EDT - 10/20/2005 11:59 PM EDT Hospital Encounter [facility] RADIOLOGY Mehran Wheeler MD 08/06/2005 4:02 PM EDT - 08/06/2005 11:59 PM EDT Hospital Encounter [facility] RADIOLOGY PADMINIT Gregg Carr MD 07/16/2005 12:01 AM EDT - 07/16/2005 11:59 PM EDT Hospital Encounter [facility] CARDIOLOGY ED[facility] Jose Maria Humza, DO 05/15/2005 8:43 AM EST - 05/15/2005 [...] EDT Hospital Encounter [facility] EPIC CON UNK [facility] 07/17/1991 1:46 AM EDT - 07/17/1991 11:59 PM EDT Hospital Encounter [facility] EPIC CON UNK EDLina Nagy MD 06/17/1991 1:19 AM EST - 06/17/1991 [...] Hospital Encounter [facility] EPIC CON SYLWIAK Lina Rodríguez MD 02/09/1991 11:59 AM EST [...] HOURS NEEDED FOR MUSCLE SPASM(S) 90 Tablet 05/13/19 24 Active atorvastatin (LIPITOR) 40 mg Oral Tablet Take 1 Tablet by mouth daily. 90 Tablet 05/20/19 25 Active citalopram (CELEXA) 20 mg Oral TabletIndication s:Depression, unspecified depression type Take 1 Tablet by mouth daily. 30 Tablet 05/20/19 25 Active TRELEGY ELLIPTA 100-62.5-25 mcg Inhl Disk with Device INHALE 1 PUFF INTO THE LUNGS DAILY. 180 Each 05/26/19 25 Active fluticasone-umec lidin-vilanter (TRELEGY ELLIPTA) 100-62.5-25 mcg Inhl Disk with Device Inhale 1 Puff into the lungs daily at 0900. 2 Each 3 06/02/19 25 Active aspirin 81 mg Oral Tablet, Chewable Take 81 mg by mouth daily. Active Cholecalciferol, Vitamin D3, 125 mcg (5,000 unit) Oral Tablet Take 5,000 Units by mouth daily. Active sildenafiL (VIAGRA) 100 mg Oral Tablet Take 100 mg by mouth as needed for Erectile Dysfunction. Active varenicline tartrate (CHANTIX) 1 mg Oral Tablet Take 1 mg by mouth 2 times daily. Active omeprazole (PRILOSEC) 20 mg Oral Capsule, Delayed Release(E.C.)Ind ications:Gastroe sophageal reflux disease without esophagitis TAKE 1 CAPSULE EVERY DAY 90 Capsule 3 07/31/19 25 Active rOPINIRole (REQUIP) 0.5 mg Oral Tablet TAKE 1 TABLET THREE TIMES DAILY 270 Tablet 3 07/31/19 25 Active propranoloL (INDERAL) 10 mg Oral TabletIndication s:Tremors of nervous system Take 1 Tablet by mouth 2 times daily. 180 Tablet 3 09/03/19 25 Active XARELTO 20 mg Oral TabletIndication s:Chronic deep vein thrombosis (DVT) of other vein of right lower extremity (HCC) TAKE 1 TABLET EVERY DAY 90 Tablet 3 12/29/19 25 Active Active Problems Problem Noted Date Diagnosed [...] will review/compare to findings on most recent [place] chest CT performed 12/2023 with impression of resolution of left lobe nodular density resolution/no acute finding. 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, were you homeless or living in a long-term (including now)? No 03/25/2024 Sex and Gender [...] 12:30 PM EST Appointment [facility] VASCULAR [facility] [place] [address] Fazal Craig MD [address] [place] [address] [address] [place] [address] 02/25/2025 2:20 PM EST Office Visit [facility] [address] [place] [address] Drive [address] [place] [address] Fazal Craig MD [address] [place] [address] [address] [place] [address] Procedures Procedure Name Priority Date/Time [...] Partial nodular transformation of liver ANTINUCLEAR ANTIBODIES (MATTEHW) SCREEN BY DAQUAN W/ REFLEX TO IFA [...] 2:12 PM EDT Fever, unspecified fever cause VA US AAA SCREENING EXAM MEDICARE Routine 12/30/2020 [...] Routine 03/08/2005 10:[address] HEAD MANAGER OF SELECTION AND ASSESSMENT Routine 02/10/2005 12:29 PM EST XX KNEE Routine 01/29/2005 10:43 AM EST XX FOOT & TOES Routine 01/29/2005 10:42 AM EST US EXTREMITY NON-VAS LEFT Routine 03/22/2004 12:00 AM EST Results * COLOGUARD (09/10/2024 12:26 PM EDT) Pathologist [facility] COLOGUARD CLINICAL REPORT Negative Negative [facility] Comment: The Cologuard (TM) test was [...] (Jocelyn Garcia al, N Engl J Med 2014;370(14):3703-1679) The normal value (reference range) for this assay is negative. COLOGUARD RE-SCREENING RECOMMENDATION: Periodic colorectal cancer screening is an important part of preventive healthcare for asymptomatic individuals at average risk for colorectal cancer. Following a negative Cologuard result, the [place] [employer] and U.S. Multi-Society Task Force screening guidelines recommend a Cologuard re-screening interval of 3 years. References: [place] [employer] Guideline for Colorectal Cancer Screening: https://www.cancer.org/cancer/ciwet-dcszsv-tvakwe/jdgnenvyb-dldhunfhd-ruimqkq/ac s-rec ommendations.html.; Matti DK, Isabella GONZALES, Taylor MartinoK, Colorectal Cancer Screening: Recommendations for Physicians and Patients from the U.S. Multi-Society Task Force on Colorectal Cancer Screening , Am J Gastroenterology 2017; 112:7837-8264. TEST DESCRIPTION: Composite algorithmic analysis of stool [...] (Jocelyn Garcia al, N Engl J Med 2014;370(14):6992-0706.) Cologuard may produce a false negative or false positive result (no colorectal cancer or precancerous polyp present at colonoscopy follow up). A negative Cologuard test result does not guarantee the absence of CRC or advanced adenoma (pre-cancer). The current Cologuard screening interval is every 3 years. ([place] [employer] and U.S. Multi-Society Task Force). Cologuard performance data in a 10,000 patient pivotal study using colonoscopy as the reference method can be accessed at the following location: www.[employer].Plazes/results. Additional description of the Cologuard test process, warnings and precautions can be found at www.cologCOZerord.com. Stool 09/10/2024 12:2 6 PM EDT 09/11/2024 9:37 AM EDT us Riley Hunter MD [employer] ORDERABLES Final Result [employer] [address] [place] [address], [facility] [employer] [address] [place] [address] * MRI FOOT RIGHT W WO CONTRAST [...] R22.40-Localized swelling, mass and lump, unspecified lower [id number] COMPARISON: None. PROCEDURE COMMENTS: Multiplanar, multisequence MR imaging of the foot prior to and following the intravenous administration of Dotarem contrast. FINDINGS: Corresponding to the site of the reported palpable abnormality at the dorsal margin of the proximal forefoot is a circumscribed lobulated lesion extending between the first and second metatarsal proximal to mid shafts measuring 3.2 x 3 x 2.3 cm (longitudinal, gpjmtk-ps-ejklnsh, transverse). This shows homogeneous fluid-signal intensity on [...] HISTORY: R22.40-Localized swelling, mass and lump, unspecifiedlower hbil-CZX-55-CM COMPARISON: None. PROCEDURE COMMENTS: Multiplanar, multisequence MR imaging of the footprior to and following the intravenous administration of Dotarem contrast. FINDINGS: Corresponding to the site of the reported palpable abnormality at thedorsal margin of the proximal forefoot is a circumscribed lobulated lesionextending between the first and second metatarsal proximal to mid shafts measuring3.2 x 3 x 2.3 cm (longitudinal, pkmvsg-mj-vnuxtjk, transverse). This showshomogeneous fluid-signal intensity on T2-weighted [...] cm,most suggestive of a benign ganglion cyst. us Riley Hunter MD IMG MRI ORDERABLES Final Re sult * (ABNORMAL) IRON+TIBC (06/01/2024 1:49 PM EDT) Only the most recent of4 resultswithin the time period is included. Pathologist [facility] Iron 65 50 - 170 mcg/dL 06/01/2024 9:41 PM EDT PREFERRED [facility], [facility] Transferrin 257 200 - 360 mg/dL 06/01/2024 9:41 PM EDT [facility]REF[facility]ED [facility], [facility] Transferrin Saturation 18(L) 20 - 50 % 06/01/2024 9:41 PM EDT [facility] TIBC 360 250 - 400 mcg/dL 06/01/2024 9:41 PM EDT [facility], [facility] Blood VENOUS BLOOD / Unknown Venipuncture / Unknown 06/01/2024 1:49 PM EDT 06/01/2024 1:49 PM EDT us Riley Hunter MD CHEMISTRY ORDERABLES Final Result [facility]REF[facility], [facility] [address] , [place] [address] * LIPID PANEL REFLEX (06/01/2024 1:49 PM EDT) Only the most recent of5 resultswithin the time period is included. Pathologist [facility] Cholesterol 142 <200 mg/dL 06/01/2024 9:41 PM EDT [facility] [place] Comment: < 200 Desirable 200 - 239 Borderline High >= 240 High Triglyceride 148 <150 mg/dL 06/01/2024 9:41 PM EDT [facility] [place] Comment: < 150 Normal 150 - 199 Borderline High 200 - 499 High >= 500 Very High HDL 53 >=40 mg/dL 06/01/2024 9:41 PM EDT [facility], [place] Comment: > 60 Optimal 40 - 60 Acceptable < 40 Low LDL Calculated 64 <100 mg/dL 06/01/2024 9:41 PM EDT [facility] [place] Comment: < 100 Optimal 100 - 129 Near or above optimal 130 - 159 Borderline High 160 - 189 High >= 190 Very High The National Institutes of Health (NIH) equation is used for all lipid panels that report calculated LDL (LDL-C). Non-HDL-C Calculated 89 <=129 mg/dL 06/01/2024 9:41 PM EDT [facility] Comment: <130 Desirable 130-159 Above Desirable 160-189 Borderline High 190-219 High >= 220 Very High Fasting Specimen? No None 025 9:41 PM EDT [facility] Blood VENOUS BLOOD / Unknown Venipuncture / Unknown 06/01/2024 1:49 PM EDT 06/01/2024 1:49 PM EDT Riley Hunter MD CHEMISTRY ORDERABLES Final Result Performing Organization Address City/[facility] Co de Phone Number [facility] [address] [facility], [place] [address] [facility] [address] [place] [address] * PROSTATE SPECIFIC ANTIGEN (SCREENING) (06/01/2024 1:49 PM EDT) Only the most recent of4 resultswithin the time period is included. Total Psa 0.14 <=4.00 ng/mL 06/01/2024 10:45 PM EDT [facility] Blood VENOUS BLOOD / Unknown Venipuncture / Unknown 06/01/2024 1:49 PM EDT 06/01/2024 1:49 PM EDT Narrative [facility] - 06/01/2024 10:45 PM EDT The [employer] [...] hyperplasia or inflammatory conditions of the prostate. us Riley Hunter MD CHEMISTRY ORDERABLES Final Result Performing Organization Address City/[facility]/ZIP Co de Phone Number [facility] [address] , [place] [address] * (ABNORMAL) VITAMIN D 25 HYDROXY (06/01/2024 1:49 PM EDT) Only the most recent of10 resultswithin the time period is included. Pathologist [facility] Vit D 25 OH 28.0(L) 30.0 - 150.0 ng/mL 06/01/2024 10:45 PM EDT PREFERRED LAB [facility], [facility] Comment: Preferred: >= 30 ng/mL Insufficient: 21-29 [...] CHEMISTRY ORDERABLES Final Result Performing Organization Address [facility] de Phone Number [facility] , [place] [address] * (ABNORMAL) CBC WITH DIFF (06/01/2024 1:49 PM EDT) Only the most recent of6 resultswithin the time period is included. Pathologist [facility] WBC 5.2 3.7 - 10.3 x10(3)/mcL 06/01/2024 9:02 PM EDT PREFERRED [facility], [facility] RBC 3.13(L) 4.60 - 6.10 x10(6)/mcL 06/01/2024 9:02 PM EDT [facility], [facility] Hgb 9.2(L) 13.7 - 17.5 g/dL 06/01/2024 9:02 PM EDT [facility], [facility] Hct 30.4(L) 40.0 - 51.0 % 06/01/2024 9:02 PM EDT [facility]REF[facility]ED [facility], [facility] MCV 97.1 80.0 - 100.0 fL 06/01/2024 9:02 PM EDT [facility] MCH 29.4 26.0 - 34.0 pg 06/01/2024 9:02 PM EDT [facility] MCHC 30.3(L) 30.7 - 35.5 g/dL 06/01/2024 9:02 PM EDT [facility] RDW 14.8 <=14.9 % 06/01/2024 9:02 PM EDT [facility] Platelet 330 155 - 369 x10(3)/mcL 06/01/2024 9:02 PM EDT [facility] MPV 9.5 8.8 - 12.5 fL 06/01/2024 9:02 PM EDT [facility] Neut Percent 46.4 % 06/01/2024 9:02 PM EDT [facility] Comment:Neutrophils equals s egs plus bands Imm Gran% 0.2 % 06/01/2024 9:02 PM EDT [facility] Comment:Automated count of m etamyelocytes, myelocytes and promyelocytes. Lymph Percent 41.1 % 06/01/2024 9:02 PM EDT [facility] [place] Percent 6.9 % 06/01/2024 9:02 PM EDT [facility] Eos Percent 4.8 % 06/01/2024 9:02 PM EDT [facility] Baso Percent 0.6 % 06/01/2024 9:02 PM EDT [facility] Neut # 2.4 1.6 - 6.1 x10(3)/mcL 06/01/2024 9:02 PM EDT [facility] Comment:Neutrophils equals s egs plus bands IMMGRAN# 0.0 0.0 - 0.1 x10(3)/mcL 06/01/2024 9:02 PM EDT [facility] Comment:Automated count of m etamyelocytes, myelocytes and promyelocytes. An absolute IG <0.1 is reported as 0.0. Lymph # 2.1 1.2 - 3.9 x10(3)/mcL 06/01/2024 9:02 PM EDT [facility] [place] # 0.4 0.3 - 0.9 x10(3)/mcL 06/01/2024 9:02 PM EDT PREFERRED [facility], [facility] Eos# 0.3 0.0 - 0.5 x10(3)/mcL 06/01/2024 9:02 PM EDT [facility], [facility] Baso # 0.0 0.0 - 0.1 x10(3)/mcL 06/01/2024 9:02 PM EDT [facility] Blood VENOUS BLOOD / Unknown Venipuncture / Unknown 06/01/2024 1:49 PM EDT 06/01/2024 1:49 PM EDT Riley Hunter MD HEMATOLOGY ORDERABLES Final Result Performing Organization Address [facility] Phone Number [facility] [employer] [place] [address] * VITAMIN B12 LEVEL (06/01/2024 1:49 PM EDT) Only the most recent of4 resultswithin the time period is included. Pathologist [facility] Vitamin B12 334 232 - 1,245 pg/mL 06/01/2024 10:45 PM EDT [facility] Blood VENOUS BLOOD / Unknown Venipuncture / Unknown 06/01/2024 1:49 PM EDT 06/01/2024 1:49 PM EDT Narrative [facility] - 06/01/2024 10:45 PM EDT Ingestion of eli doses of biotin (>5 mg/day) taken within 8 hours of drawing blood sample can interfere with this immunoassay test. us Riley Hunter MD CHEMISTRY ORDERABLES Final Result Performing Organization Address [facility] de Phone Number [facility] [employer] [place] [address] * (ABNORMAL) COMPREHENSIVE METABOLIC PANEL (06/01/2024 1:49 PM EDT) Only the most recent of8 resultswithin the time period is included. Pathologist [facility] Sodium 143 136 - 145 mmol/L 06/01/2024 9:41 PM EDT [facility] Potassium 4.4 3.5 - 5.0 mmol/L 06/01/2024 9:41 PM EDT [facility] Chloride 106 98 - 107 mmol/L 06/01/2024 9:41 PM EDT [facility] Total CO2 27 22 - 29 mmol/L 06/01/2024 9:41 PM EDT [facility] Anion Gap 10 7 - 16 mmol/L 06/01/2024 9:41 PM EDT [facility] Calcium 9.4 8.8 - 10.4 mg/dL 06/01/2024 9:41 PM EDT [facility] Glucose Lvl 102(H) 70 - 99 mg/dL 06/01/2024 9:41 PM EDT [facility] BUN 14 8 - 23 mg/dL 06/01/2024 9:41 PM EDT [facility] Creatinine 0.79 0.67 - 1.30 mg/dL 06/01/2024 9:41 PM EDT [facility] Albumin 3.9 3.2 - 4.6 gm/dL 06/01/2024 9:41 PM EDT [facility] Total Protein 7.0 6.4 - 8.3 gm/dL 06/01/2024 9:41 PM EDT [facility] Bili Total 0.2 0.2 - 1.4 mg/dL 06/01/2024 9:41 PM EDT [facility] ALT 8 <=41 U/L 06/01/2024 9:41 PM EDT [facility] AST 17 <=40 U/L 06/01/2024 9:41 PM EDT [facility] Alk Phos 81 40 - 129 U/L 06/01/2024 9:41 PM EDT [facility] eGFR (CKD-EPIcr 2020) 96 >=60 mL/min/1.7 3 m2 06/01/2024 9:41 PM EDT [facility] Comment:Estimated GFR was ca lculated using the CKD-EPIcr (2020) equation refit without race. The equation is recommended by the National Kidney Foundation - [place] [employer] Neph[employer] Task Force. Blood VENOUS BLOOD / Unknown Venipuncture / Unknown 06/01/2024 1:49 PM EDT 06/01/2024 1:49 PM EDT Riley Hunter MD CHEMISTRY ORDERABLES Final Result [facility] [address], [address] [place] [id number] * BASIC METABOLIC PANEL (03/25/2024 10:10 AM EST) Only the most recent of2 resultswithin the time period is included. Pathologist [facility] Sodium 140 136 - 145 mmol/L 03/25/2024 2:43 PM EST [facility] Potassium 4.0 3.5 - 5.0 mmol/L 03/25/2024 2:43 PM EST [facility] Chloride 104 98 - 107 mmol/L 03/25/2024 2:43 PM EST [facility] Total CO2 25 22 - 29 mmol/L [...] mL/min/1.7 3 m2 03/25/2024 2:43 PM EST [facility] Comment:Estimated GFR was ca lculated using the CKD-EPIcr (2020) equation refit without race. The equation is recommended by the National Kidney Foundation - [place] [employer] Nephrology Task Force. Blood VENOUS BLOOD / Unknown Venipuncture / Unknown 03/25/2024 10:10 AM EST 03/25/2024 10:10 AM EST Diane Ochoa APRN CHEMISTRY ORDERABLES Yashira l Result [facility] [address] [facility], [place] [address] [facility] 1 [place], [place] [id number] * CT HEAD WO CONTRAST (02/07/2024 2:57 [...] with loss of consciousness status unknown, initial rcalzgnqc-RFG-37-CM. COMPARISON: None. PROCEDURE COMMENTS: Routine noncontrast head [...] with loss of consciousness status unknown, initial rczljxrub-XRN-12-CM. COMPARISON: None. PROCEDURE COMMENTS: Routine noncontrast head [...] of the ordering clinician. Jose Pruitt MD IM CT ORDERABLES Final Result * SD US CAROTID DUPLEX BILATERAL (01/17/2024 3:39 PM [...] flow visualized in the bilateral vertebral artery. Cherry Baca APRN IMG VASCULAR ORDERABLES Fin [...] head one month ago. R59.1-Generalized enlarged lymph byasz-LGN-56-CM COMPARISON: None. PROCEDURE COMMENTS: 3 mm axial [...] C5-C6 has advanced degenerative change with near xckv-rx-pwqt contact. Minor C5 retrolisthesis. No finding of subacute osseous trauma. Procedure Note Jeanine Gutierrez MD - 01/03/2024 CT SOFT TISSUE NECK W CONTRAST: 01/03/2024 2:29 PM CLINICAL HISTORY: 68 years-old with right upper neck pain and swelling.Trauma to head one month ago. R59.1-Generalized enlarged lymph xqqus-LUR-59-CM COMPARISON: None. PROCEDURE COMMENTS: 3 mm axial [...] hypertrophy. C5-C6 has advanceddegenerative change with near soxr-jm-anog contact. Minor C5 retrolisthesis. No findingof subacute osseous trauma. IMPRESSION: 1. No lymphadenopathy or other acute process. 2. Moderate to advanced bilateral carotid atherosclerotic calcification. 3. Cervical spondylosis. - - Note: Radiology results need to be interpreted within a comprehensiveclinical context. If you have questions about the radiology report, please contactthe office of the ordering clinician. Cherry Baca APRN [facility] CT ORDERABLES Final Res ult * CT [...] 01/03/2024 2:19 PM CLINICAL HISTORY: R91.1-Solitary pulmonary sdnvnq-WRJ-31-CM. COMPARISON: Prior studies dating back to 2020 most recent 01/23/2023 PROCEDURE COMMENTS: Multi-detector CT of the chest with multiplanar reconstructions per protocol. No contrast given. Dose 1 : CT DLP Total : 503.3 mGycm DLP Spiral Max : 503.3 mGycm Maximum CTDI Vol : 14.5 mGy SSDE : 16.82 mGy SSDE Diameter : 31.6 cm SSDE Source : [employer] FINDINGS: There are a few scattered micronodules [...] 01/03/2024 2:19 PM CLINICAL HISTORY: R91.1-Solitary pulmonary ajhqdu-BJB-04-CM. COMPARISON: Prior studies dating back to 2019 most recent 01/23/2023 PROCEDURE COMMENTS: Multi-detector CT of the chest with multiplanar reconstructions per protocol. No contrast given. Dose 1 : CT DLP Total : 503.3 mGycm DLP Spiral Max : 503.3 mGycm Maximum CTDI Vol : 14.5 mGy SSDE : 16.82 mGy SSDE Diameter : 31.6 cm SSDE Source : [employer] FINDINGS: There are a few scattered micronodules [...] * CREATININE ISTAT (01/03/2024 2:15 PM EDT) [facility] Creatinine-iST AT 1.1 0.6 - 1.3 mg/dL 01/03/2024 2:19 PM EDT [facility] Blood BLOOD SPECIMEN / Unknown 01/03/2024 2:15 PM EDT 01/03/2024 2:19 PM EDT us Cherry Baca CAN SOLDERER POINT OF CARE TEST ORDERABL ES Final Result [facility] [address] [place] [address] * HCV RNA QUANT PCR (10/17/2023 2:07 PM EDT) [facility] HCV Quant (IU/mL) Not Detected IU/mL 10/18/2023 12:29 PM EDT [facility] [place] HCV Quant (log IU/mL) Not Detected log IU/mL 10/18/2023 12:29 PM EDT [facility] HCV Quant Interp Not Detected Not Detected 10/18/2023 12:29 PM EDT [facility] Comment:A result of Not Det ected does not rule out the presence of inhibitors in the patient specimen or hepatitis C virus RNA concentrations below the level of detection of the test. Care should be taken when interpreting any single viral load determination. Blood VENOUS BLOOD / Unknown Venipuncture / Unknown 10/17/2023 2:07 PM EDT 10/17/2023 2:07 PM EDT Narrative [facility] - 10/18/2023 12:29 PM EDT The quantification range of this assay is 15 to 100,000,000 IU/mL (1.18 log to 8.00 log IU/mL). Testing was performed using the julieth HCV test ([employer] with the julieth 6800 System. Riley Hunter MD IMMUNOLOGY ORDERABLES Final Result Performing Organization Address [facility] de Phone Number [address] , [place] [id number] * (ABNORMAL) ACUTE HEPATITIS PANEL (10/17/2023 2:07 PM EDT) Only the most recent of2 resultswithin the time period is included. [facility] Hep Bs Ag Non-React will Non-React will 10/18/2023 12:30 AM EDT [facility] Hep B Core IgM Non-React will Non-React will 10/18/2023 12:30 AM EDT [facility] Hep A IgM Non-React will Non-React will 10/18/2023 12:30 AM EDT [facility] Hep C Ab Reactive( A) Non-React will 10/18/2023 12:30 AM EDT [facility] Comment:Weakly Reactive. Pre sumptive evidence of antibodies to HCV, however nonspecific (false positive) results may occur in this range. Supplemental confirmatory testing (HCV RNA QUANT) will be performed. Blood VENOUS BLOOD / Unknown Venipuncture / Unknown 10/17/2023 2:07 PM EDT 10/17/2023 2:07 PM EDT Riley Hunter MD CHEMISTRY ORDERABLES Final Result Performing Organization Address [facility] de Phone Number [facility] , [place] [address] * ANTINUCLEAR ANTIBODY SCREEN (10/17/2023 2:07 PM EDT) [facility] MATTHEW, IgG Negative Negative 10/18/2023 7:13 PM EDT [facility] Comment:MATTHEW samples are scre ened using automated enzyme immunoassay. All samples that screen positive are then tested by the indirect immunofluorescence method. Blood VENOUS BLOOD / Unknown Venipuncture / Unknown 10/17/2023 2:07 PM EDT 10/17/2023 2:07 PM EDT us Riley Hunter MD IMMUNOLOGY ORDERABLES Final Result [facility] [address] [facility] [facility] , [place] [address] * US RIGHT UPPER QUADRANT (10/10/2023 9:33 [...] on diagnostic imaging of liver and biliary wdwyg-RXO-64-CM. COMPARISON: Noncontrast CT from 09/27/2023 PROCEDURE COMMENTS: [...] findings on diagnostic imaging of liverand biliary atcsw-SYZ-78-CM. COMPARISON: Noncontrast CT from 09/27/2023 PROCEDURE COMMENTS: [...] CONTRAST, 09/27/2023 10:28 AM CLINICAL HISTORY: R31.0-Gross tajzaaksp-KLW-56-CM. COMPARISON: None. PROCEDURE COMMENTS: Multidetector CT examination [...] CONTRAST, 09/27/2023 10:28 AM CLINICAL HISTORY: R31.0-Gross wzbgnocyk-FHW-71-CM. COMPARISON: None. PROCEDURE COMMENTS: Multidetector CT examination [...] of the ordering clinician. Riley Hunter MD IMG CT ORDERABLES Final [...] 1:26 PM CLINICAL HISTORY: M25.561-Pain in right ukwd-NIS-50-CM G89.29-Other chronic wree-UMP-83-CM COMPARISON: None. PROCEDURE COMMENTS: XR KNEE RIGHT [...] 1:26 PM CLINICAL HISTORY: M25.561-Pain in right bsvj-TTH-25-CM G89.29-Other chronic qdet-WGW-33-CM COMPARISON: None. PROCEDURE COMMENTS: XR KNEE RIGHT [...] of the ordering clinician. Riley Hunter MD [facility] DIAGNOSTIC IMAGING ORDMarion MISTRY Final Result * (ABNORMAL) URINALYSIS (09/12/2023 1:48 PM EDT) UA Color [place] 09/12/2023 7:18 PM EDT [facility] [place] UA Appear Cloudy(A) Clear 09/12/2023 7:18 PM EDT [facility] [place] UA Glucose Negative Negative mg/dL 09/12/2023 7:18 [...] 7:18 PM EDT [facility] Urine URINE SPECIMEN COLLECTION, CLEAN CATCH / Unknown 09/12/2023 1:48 PM EDT 09/12/2023 1:49 PM EDT us Riley Hunter MD URINE ORDERABLES Final Resu lt [facility] [address] , [place] [address] * URINE CULTURE (NO STAIN) (09/12/2023 1:48 PM EDT) Culture No growth at 30 hours. 09/14/2023 6:20 AM EDT [facility] URINE SPECIMEN COLLECTION, CLEAN CATCH / Unknown 09/12/2023 1:48 PM EDT 09/12/2023 1:48 PM EDT Riley Hunter MD MICROBIOLOGY - GENERAL ORDMarion [facility] Final Result Performing Organization Address City/[facility]/ZIP Co de Phone Number [facility] [address] , [place] [address] * (ABNORMAL) SEP URINALYSIS POC [...] 09/12/2023 1:15 PM EDT [facility]A Leuk Est POC Negative Negative 4 1:15 PM EDT [facility] URINE SPECIMEN COLLECTION / Unknown 09/12/2023 1:13 PM EDT 09/12/2023 1:15 PM EDT Riley Hunter MD POINT OF CARE TEST ORDERABL ES Final Result [facility] [address] [place] [address] * CT LUNG CANCER SCREENING LOW DOSE [...] contact the office of the ordering clinician. [email or web address] Narrative 11/22/2022 6:[address] LUNG CANCER SCREENING LOW DOSE 11/22/2022 4:22 PM CLINICAL HISTORY: Asymptomatic patient meeting NCCN high risk criteria for lung screening. Z12.2-Encounter for screening for malignant neoplasm of respiratory rjppac-RKZ-23-CM Z87.891-Personal history of nicotine ohjszyemjl-ACL-37-CM. COMPARISON: 12/22/2020 PROCEDURE COMMENTS: Noncontrast, low-dose, multidetector CT chest per department protocol. Interactive 3-D postprocessing done by the reviewing physician on a [employer] workstation, using Maximum intensity projections (MIPS) and [employer] LUNG CAD for improved lesion detection. Ruiz images archived to PACS. Dose 1 : CT DLP Total : 69.5 mGycm DLP Spiral Max : 69.5 mGycm Maximum CTDI Vol : 1.9 mGy SSDE : 2.318 mGy SSDE Diameter : 30.3 cm SSDE Source : [employer] FINDINGS: 0.9 x 0.5 cm partially solid [...] No Modifier Needed us Barbara Cowart MD IMG CT ORDERABLES F inal Result * SCANNED [...] trace tricuspid valve regurgitation. Derrick Savage MD [facility] ECHO ORDERABLES Final Result * NM MYOCARDIAL [...] Ejection fraction is normal. Derrick Savage MD [facility] NM CARDIAC ORDERABLES Final Result * ST STRESS TEST LEXISCAN (02/22/2022 12:49 PM EST) Anatomical Region Laterality Modality Cardiac Stress T esting 02/22/2022 12:2 7 PM EST Impressions 02/22/2022 12:54 PM EST [facility] Test Date: 2022-02-22 Pat Name: GRACE KU Department: DEPID Room: Gender: Male Wash Tub Machine Operator: Sabi Sloan : 1955 Requested By: DERRICK Holland Order Number: [id number] Marco MD: Keenan Suresh Interpretive Statements Stress [...] Note Keenan Suresh MD - 02/22/[address] 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 FINDINGS: Heart size normal. Linear opacities left base, atelectasis versus scarring. No effusion or pneumothorax. Procedure Note Christopher Montague MD - 12/06/2021 PA AND LATERAL CHEST X-RAY, 12/06/2021 1:18 PM CLINICAL HISTORY: R05.1-Acute zquyv-QBW-20-CM COMPARISON: 12/22/2020 PROCEDURE COMMENTS: Frontal and lateral [...] please contactthe office of the ordering clinician. Jennifer Oonfre DO IMG DIAGNOSTIC IMAGING ORDER [place] Final [...] ORDERABLE S Final Result Performing Organization Address [facility]/ZIP Co de Phone Number [facility] [address] [place] [address] * POCT INFLUENZA A/B (06/16/2021 2:12 PM [...] TEST ORDERABLES Final Result SEP OFFICE * [facility] AAA SCREENING EXAM MEDICARE (12/30/2020 9:15 AM [...] 232-1,245 pg/mL 12/15/2019 9:00 PM EDT [facility] Folate >16.00 >=4.50 ng/mL 12/15/2019 9:00 PM EDT [facility] Blood VENOUS BLOOD / Unknown Venipuncture / Unknown 12/15/2019 2:41 PM EDT 12/15/2019 2:43 PM EDT Narrative [facility] - 12/15/2019 9:00 PM EDT Ingestion of eli doses of biotin (>5 mg/day) taken within 8 hours of drawing blood sample can interfere with this immunoassay test. us Cherry Baca APRN CHEMISTRY ORDERABLES Final Result [facility] [address] [facility] [address] , [place] [address] * SCANNED RHYTHM STRIPS (04/23/2019 8:26 AM EST) Anatomical Region Laterality Modality Other 04/23/2019 8:26 AM EST us Unknown Unknown IMG ECG ORDERABLES Final Result * INTRAOP AIRWAY PLACEMENT (04/21/2019 2:09 PM EST) Narrative [facility] - 04/21/2019 2:09 PM EST Ed Scott, [place] FORMER 04/21/2019 2:10 PM Intraop Airway Placement: Induction type: IV Mask size: Standard adult Pre-Oxygenation: Standard Airway type: LMA Device size: 4 Secured by: Tape Placement verified: Auscultation and End tidal CO2 Condition: Atraumatic and Unchanged Insertion attempts: 1 Title: [place] FORMER us Emely Taveras MD CO ANESTHESIA Final Resu lt [facility] [address] [place] [address] * Peripheral Block by Anesthesia (04/21/2019 1:22 PM EST) Narrative [facility] - 04/21/2019 1:22 PM EST Emely [...] Taveras MD ANESTHESIA ORDERABLES Yashira beverly Result [facility] [address] [place] [address] * EK EKG 12 LEAD (04/21/2019 11:30 AM EST) Anatomical Region Laterality Modality Electrocardiogra phy 04/21/2019 11:3 6 AM EST Impressions 04/22/2019 2:[address] 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: : 1955 Requested By: COLTON MARTIN Order Number: [id number] Reading MD: Sean Atkinson MD Measurements Intervals Henderson Rate: 104 P: 81 CO: 166 QRS: 53 QRSD: 82 T: 61 QT: 324 QTc: 401 Interpretive Statements Sinus tachycardia Normal ECG except for rate NO PRIOR ECG FOR COMPARISON Electronically Signed On 04-22-2019 14:54:29 EST by Sean Atkinson MD us Colton Wooten MD IMG ECG ORDERABLES Final Result * BB HISTORY CHECK (02/23/2019 11:37 AM EST) BB HISTORY CHECK (1) No Previous History 02/23/2019 3:40 PM EST [facility] Blood VENOUS BLOOD / Unknown Venipuncture / Unknown 02/23/2019 11:37 AM EST 02/23/2019 11:37 AM EST Jose Pruitt MD BLOOD BANK ORDERABLES Final Re sult Performing Organization Address City/[facility] Co de Phone Number [facility] [address] [place] [address] * TSH REFLEX (02/23/2019 11:37 AM EST) TSH Reflex 0.567 0.270 - 4.200 mcIU/mL 02/23/2019 5:05 PM EST [facility] VENOUS BLOOD / Unknown Venipuncture / Unknown 02/23/2019 11:37 AM EST 02/23/2019 11:37 AM EST Narrative [facility] [place] - 02/23/2019 5:05 PM EST Ingestion of eli doses of biotin (>5 mg/day) taken within 8 hours of drawing blood sample can interfere with this immunoassay test. Jose Pruitt MD CHEMISTRY ORDERABLES Final Res ult Performing Organization Address [facility] de Phone Number [facility] [address] [facility] [place] [id number] * (ABNORMAL) CBC (02/23/2019 11:37 AM EST) Only the most recent of2 resultswithin the time period is included. WBC 6.1 3.7 - 10.3 x10(3)/mcL 02/23/2019 3:40 PM EST [facility] RBC 4.32(L) 4.60 - 6.10 x10(6)/mcL 02/23/2019 3:40 PM EST [facility] Hgb 14.1 13.7 - 17.5 g/dL [...] ORDERABLES Final Re sult [facility] [address] [facility], [place] [address] * ABORH (02/23/2019 11:37 AM EST) Pathologist [facility] ABORH Int O POS 02/23/2019 4:0 3 PM EST [facility] Blood VENOUS BLOOD / Unknown Venipuncture / Unknown 02/23/2019 11:37 AM EST 02/23/2019 11:37 AM EST Jose Pruitt MD BLOOD BANK ORDERABLES Final Re sult [facility] [address] [place] [address] * HEMOGLOBIN A1C (02/23/2019 11:37 AM EST) Only the most recent of2 resultswithin the time period is included. [facility] Hgb A1C 5.2 4.2 - 5.6 % 02/23/2019 4:04 PM EST [facility] Est. Avg Glucose 103 mg/dL 02/23/2019 4:04 PM EST [facility] Blood VENOUS BLOOD / Unknown Venipuncture / Unknown 02/23/2019 11:37 AM EST 02/23/2019 11:37 AM EST Narrative [facility] - 02/23/2019 4:04 PM EST REFERENCE RANGE: Normal: 4.0-5.6% Pre-diabetes: 5.7-6.4% Provisional diagnosis of diabetes: >6.4% Hgb F>10% and anything which shortens red cell survival, such as hemolytic anemia, or unstable hemoglobin variants such as HbSS, HbSC, or HbCC, will lower the HbA1c value associated with a given level of glycemic control. us Jose Pruitt MD CHEMISTRY ORDERABLES Final Res ult [facility] [address] [facility] , [place] [address] * (ABNORMAL) LIPID SCREEN (02/23/2019 11:37 AM EST) Only the most recent of3 resultswithin the time period is included. Cholesterol 177 <=200 mg/dL 02/23/2019 5:05 PM EST [facility] Comment: < 200 Desirable 200 - 239 Borderline High >= 240 High Triglyceride 396(H) <=150 mg/dL 02/23/2019 5:05 PM EST [facility] Comment: < 150 Normal 150 - 199 Borderline High 200 - 499 High >= 500 Very High HDL 59 >=40 mg/dL 02/23/2019 5:05 PM EST [facility] Comment: > 60 Optimal 40 - 60 Acceptable < 40 Low LDL Calculated 39 <=100 mg/dL 02/23/2019 5:05 PM EST [facility] Comment: < 100 Optimal 100 - 129 Near or above optimal 130 - 159 Borderline High 160 - 189 High >= 190 Very High Non-HDL-C Calculated 118 <=129 mg/dL 02/23/2019 5:05 PM EST [facility] Comment: <130 Desirable 130-159 Above Desirable 160-189 Borderline High 190-219 High >= 220 Very High Fasting Specimen? Yes None 019 5:05 PM EST [facility] Blood VENOUS BLOOD / Unknown Venipuncture / Unknown 02/23/2019 11:37 AM EST 02/23/2019 11:37 AM EST us Jose Pruitt MD CHEMISTRY ORDERABLES Final Res ult [facility] [address] [facility] , [place] [address] * XR FOOT RIGHT AP LATERAL AND OBLIQUE (06/19/2018 2:46 PM EDT) Anatomical Region Laterality Modality Foot Radiographic Sabine ging 06/19/2018 2:46 PM EDT Impressions 06/19/2018 3:02 PM EDT No acute findings. Narrative 06/19/2018 3:02 PM EDT CLINICAL HISTORY: M79.671-Pain in right xtyo-LWH-57-CM. COMPARISON: None. TECHNIQUE: XR FOOT RIGHT AP LATERAL AND OBLIQUE on 06/19/2018 2:46 PM FINDINGS: The bone mineralization is normal. There is no fracture. The joint spaces are well maintained with normal alignment. There are no degenerative changes. The soft tissues are unremarkable. Procedure Note Elie Milton MD - 06/19/2018 CLINICAL HISTORY: M79.671-Pain in right rqnx-IUR-65-CM. COMPARISON: None. TECHNIQUE: XR FOOT RIGHT AP [...] WITHOUT CONTRAST, 08/21/2017 5:09 PM CLINICAL HISTORY: M54.3-Bkmlqrpzcqz-JJX-10-CM COMPARISON: Cervical spine x-rays from 08/22/2015 PROCEDURE [...] WITHOUT CONTRAST, 08/21/2017 5:09 PM CLINICAL HISTORY: M54.7-Adqemzomggf-PHQ-10-CM COMPARISON: Cervical spine x-rays from 08/22/2015 PROCEDURE [...] FLEX/EXT VIEWS, 08/21/2017 4:23 PM CLINICAL HISTORY: M54.0-Gwiredqrvfn-QZX-10-CM COMPARISON: 07/19/2017 PROCEDURE COMMENTS: AP and lateral [...] FLEX/EXT VIEWS, 08/21/2017 4:23 PM CLINICAL HISTORY: M54.2-Ddnfkqnyokm-JCI-10-CM COMPARISON: 07/19/2017 PROCEDURE COMMENTS: AP and lateral [...] C-SPINE SERIES, 07/19/2017 11:13 AM CLINICAL HISTORY: M54.2-Fkuxgqnqjze-CSP-10-CM COMPARISON: None. PROCEDURE COMMENTS: 5 views of [...] C-SPINE SERIES, 07/19/2017 11:13 AM CLINICAL HISTORY: M54.2-Keoszusjnjd-XUE-10-CM COMPARISON: None. PROCEDURE COMMENTS: 5 views of the cervical spine, including PA,lateral, odontoid, and bilateral oblique positioning. FINDINGS: Vertebral height and alignment anatomic. No fracture. No destructivelesion. Moderate disc space narrowing and spurring C5-6 with bilateral foraminal narrowing. Other disc spaces preserved. Prevertebral soft tissues normal. Prominent left carotid calcificationnoted. IMPRESSION: Moderate discogenic change C5-6. Riley Hunter MD IMG DIAGNOSTIC IMAGING JOANN[facility]arion MISTRY Final Result * MRI HAND RIGHT WO [...] 4:52 PM CLINICAL HISTORY: M79.641-Pain in right wbyo-VGB-44-CM COMPARISON: X-ray June 21, 2017. PROCEDURE COMMENTS: [...] 4:52 PM CLINICAL HISTORY: M79.641-Pain in right tjlb-PBM-31-CM COMPARISON: X-ray June 21, 2017. PROCEDURE COMMENTS: [...] diseases of the musculoskeletal system and connective kmuzob-KKV-40-CM Comparison: April 02, 2013 PROCEDURE COMMENTS: 4 views of the wrist, with PA, lateral, and bilateral oblique imaging. Procedure Note Elie Morales MD - 06/21/2017 XR WRIST RIGHT PA LATERAL AND OBLIQUE, 06/21/2017 12:12 PM Clinical History: 62 years Male Z87.39-Personal history of otherdiseases of the musculoskeletal system and connective rebzvn-VCX-62-CM Comparison: April 02, 2013 PROCEDURE COMMENTS: 4 [...] <1.2 log IU 06/21/2017 8:52 PM EDT [employer] Comment: *Hepatitis C Virus by [...] IU <15 IU/mL 06/21/2017 8:52 PM EDT [facility] HCV RNA Interpretation Not Detected Not Detected 06/21/2017 8:52 PM EDT [facility] EER HCV RNA Qnt w/Genotype Ref See Note 06/21/2017 8:52 PM EDT [facility] Comment: Access [employer] Enhanced Report using either link below: -Direct access: [email or web address] -Enter Username, Password: [email or web address] Username: [email or web address] Password: [email or web address] Performed by [facility], [address] [place] [id number] [email or web address], Jas Wei MD, Lab. Director Blood Venipuncture / Unknown 06/19/2017 8:26 AM EDT 06/19/2017 8:26 AM EDT us Barbara Cowart MD IMMUNOLOGY ORDERABL ES Final Result Performing Organization Address [facility]/State/ZIP Co de Phone Number [facility] [address] [place] [address] * URIC ACID (06/19/2017 8:26 AM EDT) Uric Acid 4.5 3.4 - 7.0 mg/dL 06/19/2017 4:27 PM EDT [facility] Blood Venipuncture / Unknown 06/19/2017 8:26 AM EDT 06/19/2017 8:26 AM EDT Barbara Cowart MD CHEMISTRY ORDERABLE S Final Result Performing Organization Address City/[facility]/ZIP Co de Phone Number [facility] [address] [place] [address] * THYROID STIMULATING HORMONE (06/19/2017 8:26 AM EDT) Only the most recent of2 resultswithin the time period is included. [facility] TSH 1.120 0.270 - 4.200 mcIU/mL 06/19/2017 4:27 PM EDT [facility] Blood Venipuncture / Unknown 06/19/2017 8:26 AM EDT 06/19/2017 8:26 AM EDT us Barbara Cowart MD CHEMISTRY ORDERABLE S Final Result Performing Organization Address [facility] Co de Phone Number [facility] [address] [place] [address] * HCV GENOTYPE BY PCR AND SEQUENCING -REF LAB (05/10/2015 1:41 PM EST) [facility] HCV Genotyping by PCR & Sequencing Indeterminate [employer] Comment: Hepatitis C GENOTYPING IS [...] C Viral RNA is tested using reverse battery container tester polymerase chain reaction (RT-PCR) to amplify a specific portion of the 5' untranslated region (5' UTR) of the viral genome. The amplified nucleic acid is sequenced bi-directionally using dye-terminator chemistry (Herotainment). Sequencing data is compared to a database [...] 1. Test developed and characteristics determined by [facility]. See Compliance Statement B: [email or web address]/CS Blood specimen (specimen) UPPER LIMB STRUCTURE / Unknown 05/10/2015 1:41 PM EST 05/10/2015 9:42 PM EST Ryan Villarreal DO IMMUNOLOGY ORDERABLES Fin al Result Performing Organization Address [facility] Co de Phone Number [facility] [address] [place] [address] * HCV RNA QUANT, REAL-TIME PCR -REF LAB (05/10/2015 1:41 PM EST) Hepatitis C RNA <1.2 log IU [facility] Comment: INTERPRETIVE INFORMATION: Hepatitis C Virus by [...] Tissue-Based Products (HCT/P). HCV IU <15 IU/mL [facility] HCV RNA Interpretation Not Detected Not Detected [facility]ER HCV RNA Quant RT-PCR See Note [facility] Comment: To download an enhanced report for this test go to: [email or web address] [email or web address] [email or web address] Blood specimen (specimen) UPPER LIMB STRUCTURE / Unknown 05/10/2015 1:41 PM EST 05/10/2015 9:42 PM EST Ryan Villarreal DO IMMUNOLOGY ORDERABLES Fin al Result Performing Organization Address City/[facility] Co de Phone Number [facility] [address] [place] [address] * T4, FREE (THYROXINE) (04/18/2015 4:00 PM EST) Free T4 1.01 0.93 - 1.70 ng/dL [facility] Blood specimen (specimen) UPPER LIMB STRUCTURE / Unknown 04/18/2015 4:00 PM EST 04/18/2015 8:45 PM EST Amanda Veronica CAN SOLDERER CHEMISTRY ORDERABLES Yashira l Result [facility] [address] [place] [address] * XR PELVIS (04/02/2013 9:13 AM EST) Anatomical Region Laterality Modality Pelvis Radiographic Sabine ging 04/02/2013 8:54 AM EST Impressions 04/02/2013 11:30 AM EST IMPRESSION: No fracture. No dislocation. Narrative 04/02/2013 11:30 AM EST Pelvis single view INDICATION: Pain. Procedure Note Amor Valdez MD - 04/02/2013 Pelvis single view INDICATION: Pain. IMPRESSION: No fracture. No dislocation. us Ryan Cadena MD IMG DIAGNOSTIC IMAGING [...] dislocations. Mild degenerative change at the radiocarpaljoint. Ryan Caedna MD IMG DIAGNOSTIC IMAGING ORDERABL ES Final Result * (ABNORMAL) HEPATIC FUNCTION PANEL (04/02/2013 8:53 AM EST) Total Protein 7.4 6.0 - 8.2 gm/dL [facility] Albumin 4.0 3.6 - 4.7 gm/dL [facility] Bili Direct 0.0 0.0 - 0.4 mg/dL [facility] Bili Total 0.4 0.1 - 1.4 mg/dL [facility] AST 67(H) 16 - 55 IU/L [facility] ALT 74(H) 6 - 72 IU/L [facility] Alk Phos 101 41 - 119 IU/L [facility] Blood specimen (specimen) UPPER LIMB STRUCTURE / Unknown 04/02/2013 8:53 AM EST 04/02/2013 8:53 AM EST Ryan Cadena MD CHEMISTRY ORDERABLES Final Resu lt [facility] [address] [place] [address] * SCANNED OR REPORT (10/31/2009 12:00 AM [...] Narrative 11/21/2005 4:14 PM EDT AP LATERAL [facility] November 21, 2005. Left knee [...] are slight to moderate changes of osteoarthritis. Fight Manager- VIVEK URIARTE Reading Radiologist- DONNIE LEAL MD Released Date Time- 11/21/051958 Procedure Note Donnie Leal D - 05/25/2009 [facility] November 21, 2005. Left knee 3 views. [...] are slight to moderate changes of osteoarthritis. Fight Manager- VIVEK URIARTE Reading Radiologist- DONNIE LEAL MD Released Date Time- 11/21/051958 us Uri Pope MD [facility] [employer] RAD HISTORI JASON Final Result * XR HIP & PELVIS [...] Pelvis is normal. Impression- 1. Negative exam. Fight Manager- CHRIS MCCURDY Reading Radiologist- JEANINE GUTIERREZ MD. [...] Pelvis is normal. Impression- 1. Negative exam. Fight Manager- CHRIS MCCURDY Reading Radiologist- JEANINE GUTIERREZ MD. Released Date Time- 10/22/05 1237 Mehran Maddox MD [facility] [employer] [facility] HISTORICAL F inal Result * XR [...] Impression- No acute process in the chest. Fight Manager- ROMINADEBBY GALLEGOS Reading Radiologist- ALPHONSE ROSA M.D. Released Date Time- 08/06/052055 Procedure Note Alphonse Rosa - 05/25/2009 PA and lateral chest, 08/06/2005 Indication- Left-sided chest pain. Findings- PA and lateral chest demonstrates a small amount of scarring in the right lung base. Normal heart size and pulmonary vascularity. Lungs are clear. Chest is otherwise negative. Impression- No acute process in the chest. Fight ManagerJeana ROMINADEBBY Lara Radiologist- ALPHONSE ROSA M.D. Released Date Time- 08/06/052055 us Gregg Carr MD [facility] Final Result * US RETROPERITONEAL COMPLETE (07/16/2005 8:14 AM EDT) Anatomical Region Laterality Modality Other 07/16/2005 8:14 AM EDT Narrative 07/16/2005 10:48 AM EDT -PT WILLIAM Shahid/SALEEM Abdominal aortic ultrasound, 07/16/2005 1. History- Evaluate for abdominal aortic aneurysm. 2. Abdominal aorta well demonstrated^ maximal AP and transverse diameter of abdominal aorta is only 2.2 cm. There is no evidence of abdominal aortic aneurysm. IMPRESSION- Normal study. Fight ManagerJeana Laar Radiologist- JOSE ALLRED MD Released Date Time- 07/16/05 1215 Procedure Note Jose Allred - 05/25/2009 -PT WILLIAM Shahid/[facility] Abdominal aortic ultrasound, 07/16/2005 1. History- Evaluate for abdominal aortic aneurysm. 2. Abdominal aorta well demonstrated^ maximal AP and transverse diameter of abdominal aorta is only 2.2 cm. There is no evidence of abdominal aortic aneurysm. IMPRESSION- Normal study. Fight Manager- MU Lara Radiologist- JOSE ALLRED MD Released Date Time- 07/16/05 1215 us Humza Graham DO IMG [facility] RAD HISTORICAL Yashira l Result * VA [...] EVIDENCE OF ARTERIAL INSUFFICIENCY OF EITHER LEG. Fight Manager- JEANINE PIÑA MD Released Date Time- 07/17/05702 [...] EVIDENCE OF ARTERIAL INSUFFICIENCY OF EITHER LEG. Fight Managerbrock PIÑA MD Released Date Time07/17/05702 us Humza Graham DO [facility] ST[facility]ARD HISTORICAL Fin al Result * [...] flow volume at the Thigh and Ankle. Fight Manager- DOTTY REED Reading Radiologist- ELIE YU MD [...] flow volume at the Thigh and Ankle. Fight Manager- DOTTY REED Reading Radiologist- ELIE YU MD Released Date Time- 03/14/05 1726 Humza Graham DO [facility] Result * CT HEAD MANAGER OF SELECTION AND ASSESSMENT (02/10/2005 12:29 PM EST) Anatomical Region Laterality [...] contrast enhancement are identified. Impression- Normal The [facility] hemodialysis technician called the physician at the time of the dictation. Fight Manager- TRISTON PAYNE Reading Radiologist- ANTHONY MALAVE M.D. Released Date Time- 02/10/05 1317 Procedure Note Derrick Malave - 05/24/2009 CT head without contrast, 10 February 2005 at 1236 hours Clinical History- Numbness in the fingers. The ventricular system is within normal limits. No mass effect or extra-axial collection is demonstrated. No areas of abnormal brain attenuation or abnormal contrast enhancement are identified. Impression- Normal The [facility] hemodialysis technician called the physician at the time of the dictation. Fight Manager- TRISTON PAYNE Reading Radiologist- ANTHONY MALAVE M.D. Released Date Time- 02/10/05 1317 us Humza Graham DO IMG [facility] RAD HISTORICAL Yashira l Result * XR [...] is suspicion of a small suprapatellar effusion. Fight Manager- JEANINE CORMIER Reading Radiologist- MARK ANTHONY ALLEN MD Released Date [...] is suspicion of a small suprapatellar effusion. Fight Manager- JEANINE Lara Radiologist- MARK ANTHONY ALLEN MD Released Date Time- 01/29/05 1415 Mehran Maddox MD [facility] HISTORICAL F inal Result * XR FOOT & TOES (01/29/2005 10:42 AM EST) Anatomical Region Laterality Modality Other 01/29/2005 10:4 2 AM EST Narrative 01/29/2005 3:00 PM EST Right foot on 01/29/2005 There is a history of pain. Three views were taken. No fracture or other significant abnormality is seen. Fight Manager- JEANINE Lraa Radiologist- JOHAN MCCLAIN MD Released Date Time- 01/29/051499 Procedure Johan Robledo - 05/24/2009 Right foot on 01/29/2005 There is a history of pain. Three views were taken. No fracture or other significant abnormality is seen. Fight Manager- JEANINE Lara Radiologist- JOHAN MCCLAIN MD Released Date Time- 01/29/051499 Mehran Maddox MD [facility] F inal Result * US EXTREMITY NON-VAS LEFT (03/22/2004 12:00 AM EST) Anatomical Region Laterality Modality Other 03/22/2004 03/22/2004 Narrative 03/22/2004 12:00 AM EST VERIFIED [facility] Reason: US LEFT ELBOW BURSITIS Dict.Staff: [...] Procedure Note Unknown, U - 06/30/2009 VERIFIED [facility] Reason: US LEFT ELBOW BURSITIS Dict.Staff: [...] GS/huy end of result us U Unknown [facility] RAD HISTORICAL Final Result Visit Diagnoses Diagnosis [...] medical examination at a health care facility 12/11/2021 Failed total left knee [...] an ideal body weight General No Sadie Arenas, OSEI Stay Tobacco Free Lifestyle No Sadie Arenas RMA Care Teams Public Health Relationship Specialty Start Date End Date Riley Hunter MD [employer] [address] [place], [place] [phone] PCP - General Family Medicine 09/12/23
[2025-02-04 14:00] VITALS: BP 125/72; PULSE 97; O2SAT 90
[2025-02-04 14:30] VITALS: BP 117/69; PULSE 96; O2SAT 92
--- NOTE | 2025-02-04 14:52 | PC.NURSE ---
calling [facility] at this time.
--- NOTE | 2025-02-04 15:22 | PC.NURSE ---
[facility] NOTIFIED OF TRANSFER
[2025-02-04 15:40] VITALS: BP 120/84; PULSE 91; RESP 18; TEMP 36.5; O2SAT 99
== END 2025-02-04 15:42 | disposition other institution (70) ==
PROVIDERS: Emergency Provider Student in an Organized Health Care Education/Training Program; PCP Family Medicine
DX: R10.30 Lower abdominal pain, unspecified (principal); I71.40 Abdominal aortic aneurysm, without rupture, unspecified; Z93.6 Other artificial openings of urinary tract status; Z85.51 Personal history of malignant neoplasm of bladder; F17.210 Nicotine dependence, cigarettes, uncomplicated; V49.40XA Driver injured in collision with unspecified motor vehicles in traffic accident, initial encounter
CPT/HCPCS: 71045; 72170; 74174; 80053; 83605; 83690; 84484; 85025; 85610; 85730; 93005; 99285; Q9967